=== PATIENT | male | born 1950 | race Caucasian/White ===

== ENCOUNTER 2016-12-24 08:00 | Outpatient (CLI) | payer MEDICARE, OTHER ==
[2016-12-24 12:55] LABS: HEMOGLOBIN A1C 0.45 g/dL
== END 2016-12-24 08:01 | disposition home or self-care (01) ==
LOC: LAB.WCP 08:00
PROVIDERS: ATTEND Family Medicine
DX: E11.9 Type 2 diabetes mellitus without complications (principal)
CPT/HCPCS: 36415; 83036

== ENCOUNTER 2018-01-02 08:00 | Outpatient (CLI) | payer MEDICARE, OTHER | END 2018-01-02 08:01 | disposition home or self-care (01) | LOC: LAB.WCP 08:00 | PROVIDERS: ATTEND Family Medicine | DX: F52.21 Male erectile disorder (principal) | CPT/HCPCS: 36415; 81599; 84402; 84403 ==

== ENCOUNTER 2018-01-14 06:07 | Emergency (ER) | payer MEDICARE, OTHER ==
[2018-01-14 06:16] VITALS: BP 134/59
[2018-01-14] MEDS ORDERED: LIDOCAINE-EPINEPH-TETRACAINE 3 ML SYRINGE TOP STA (07:31)
--- NOTE | 2018-01-14 07:59 | ED Physician Documentation ---
PD HPI WOUND RECHECK - Stated complaint Stated Complaint: R EAR LAC - Chief complaint Chief Complaint: General - Histroy obtained from History obtained from: Patient - History of Present Illness Location: Ear Timing - onset: How many days ago (3) Associated symptoms: Other (bleeding) Similar symptoms before: Has not had sx before Recently seen: Surgery - Additional information Additional information: 67 year old male with a history of CLL who is in remission and who is on Coumadin for blood clots had a procedure on his right ear for removal of a cancer. He is intending to allow this to heal by secondary intention and he has had bleeding persistently since the evening of the procedure. He has soaked gauze about every 4 hours and bleeding has not stopped. He has come in this morning for evaluation and treatment. He has not been ill recently. Review of Systems Constitutional: denies: Fever Eyes: denies: Decreased vision Ears: denies: Ear pain Nose: denies: Rhinorrhea / runny nose, Congestion Throat: denies: Sore throat Respiratory: denies: Cough GI: denies: Vomiting, Hematemesis, Bloody / black stool PD PAST MEDICAL HISTORY - Past Medical History Past Medical History: Yes Cardiovascular: Hypertension, High cholesterol, Deep vein thrombosis, Pulmonary embolism Respiratory: None Neuro: None Endocrine/Autoimmune: Type 2 diabetes : None HEENT: None Psych: None Musculoskeletal: Other Derm: None - Past Surgical History Past Surgical History: Yes Ortho: Rotator cuff repair - Present Medications Home Medications: Ambulatory Orders Medication Instructions Recorded Confirmed Allopurinol 300 mg PO DAILY 06/29/13 01/06/18 Aspirin [Aspir 81] 81 mg PO DAILY 06/29/13 01/06/18 Carvedilol 6.25 mg PO BID 06/29/13 01/06/18 Felodipine [Felodipine ER] 10 mg PO DAILY 06/29/13 01/06/18 Fenofibrate [Lofibra] 160 mg PO DAILY 06/29/13 01/06/18 Furosemide 20 mg PO DAILY 06/29/13 01/06/18 Gluc Coughlin/Chondro Coughlin A/Vit C/Mn 1 each PO DAILY 06/29/13 01/06/18 [Glucosamine 1,500 Complex Cp] Metformin HCl [Fortamet] 500 mg PO BID 06/29/13 01/06/18 Potassium Bicarbonate/Cit AC 60 meq PO TID 06/29/13 01/06/18 [Effer-K 20 Meq Tablet Eff] Simvastatin 20 mg PO DAILY 06/29/13 01/06/18 Telmisartan/Hydrochlorothiazid 1 tab PO DAILY 06/29/13 01/06/18 [Micardis Hct 80-25 mg Tablet] Warfarin [Coumadin] 5 mg PO Q2D 06/29/13 01/06/18 Warfarin Sodium [Coumadin] 7.5 mg PO Q2D 07/06/13 01/06/18 Spironolactone 25 mg PO DAILY 03/05/16 01/06/18 Ibrutinib [Imbruvica] 140 mg PO TID 10/15/16 01/06/18 Cyanocobalamin (Vitamin B-12) 1,000 mcg PO DAILY 10/29/16 01/06/18 [Vitamin B-12] Doxazosin [Cardura] 8 mg PO DAILY 01/06/18 01/06/18 - Allergies Allergies/Adverse Reactions: Allergies Allergy/AdvReac Type Severity Reaction Status Date / Time No Known Drug Allergies Allergy Verified 01/14/18 06:16 - Social History Does the pt smoke?: No Smoking Status: Never smoker Does the pt drink ETOH?: No Does the pt have substance abuse?: No - Immunizations Immunizations are current?: Yes - POLST Patient has POLST: No POLST Status: Full Code PD ED PE NORMAL - Vitals Vital signs reviewed: Yes (hypertnesive mild ) - General General: Alert and oriented X 3, No acute distress, Well developed/nourished - HEENT HEENT: PERRL, EOMI, Other (on the right ear in the center of the conch is a 1cm round surgical site oozing blood slowly ) - Neck Neck: Supple, no meningeal sign, No bony TTP - Respiratory Respiratory: No respiratory distress - Derm Derm: Normal color, Warm and dry, No rash - Extremities Extremities: No deformity, No edema - Neuro Neuro: Alert and oriented X 3, storeroom attendant 2-12 intact, No motor deficit, No sensory deficit, Normal speech Eye Opening: Spontaneous Motor: Obeys Commands Verbal: Oriented GCS Score: 15 - Psych Psych: Normal mood, Normal affect Results - Vitals Vitals: Vital Signs - 24 hr 01/14/18 06:14 Temperature 36.8 C Heart Rate 52 L Respiratory 16 Rate Blood Pressure 134/59 H O2 Saturation 99 Oxygen O2 Source Room air - Labs Labs: Laboratory Tests 01/14/18 07:24 Whole Blood INR 2.9 H PD MEDICAL DECISION MAKING - ED course Complexity details: reviewed results, re-evaluated patient, considered differential, d/w patient ED course: 67-year-old male on Coumadin has an INR of 2.9. He has oozing from a surgical site. This is covered with Gelfoam and this does not produce adequate hemostasis. Subsequently LET is administered to the wound and the base of the surgical site is cauterized with silver nitrate. Gelfoam was placed over this. - Sepsis Event Vital Signs: Vital Signs - 24 hr 01/14/18 06:14 Temperature 36.8 C Heart Rate 52 L Respiratory 16 Rate Blood Pressure 134/59 H O2 Saturation 99 Oxygen O2 Source Room air Departure - Departure Disposition: 01 Home, Self Care Clinical Impression: Postoperative hemorrhage of ear following procedure on ear Condition: Stable Instructions: ED Wound Check Post Op Bleeding Follow-Up: Nicholas Ortiz MD [Primary Care Provider] - Comments: Today your INR is 2.9. Do not take your Coumadin tonight or tomorrow night and then resume your usual dose.
== END 2018-01-14 08:20 | disposition home or self-care (01) ==
LOC: ED 06:07
DX: L76.22 Postprocedural hemorrhage of skin and subcutaneous tissue following other procedure (principal); C91.11 Chronic lymphocytic leukemia of B-cell type in remission; I10 Essential (primary) hypertension; E78.00 Pure hypercholesterolemia, unspecified; E11.9 Type 2 diabetes mellitus without complications; Z86.718 Personal history of other venous thrombosis and embolism; Z86.711 Personal history of pulmonary embolism; Z79.84 Long term (current) use of oral hypoglycemic drugs; Z79.01 Long term (current) use of anticoagulants; Z79.82 Long term (current) use of aspirin
CPT/HCPCS: 12011; 85610; 99282

== ENCOUNTER 2018-02-17 14:13 | Outpatient (CLI) | payer MEDICARE, OTHER | END 2018-02-17 14:14 | disposition home or self-care (01) | LOC: SC 14:13 | PROVIDERS: ATTEND Nurse Practitioner Family | DX: G47.33 Obstructive sleep apnea (adult) (pediatric) (principal) | CPT/HCPCS: 99212; 99214 ==

== ENCOUNTER 2018-02-24 18:14 | Emergency (ER) | payer MEDICARE, OTHER ==
--- NOTE | 2018-02-24 20:05 | ED Physician Documentation ---
History of Present Illness - Stated complaint Stated Complaint: L LEG PX - Chief complaint Chief Complaint: General - History obtained from History obtained from: Patient - History of Present Illness Timing: Today Pain level max: 4 Pain level now: 3 Improved by: Rest Worsened by: Movement - Additonal information Additional information: L thigh pain since 399 today. Worse with standing and better with lying down. States history of DVT and PE in the past. Is normally on warfarin, but stopped 3 days ago for upcoming colonoscopy and has been on BID lovenox. Denies chest pain and SOB. Doesn't recall an injury. Was doing yardwork for his rabbits yesterday. Has chronic osteoarthritis pain in the B knees. Has been having injections of synvisc for his knees. Has CLL as well currently undergoing chemotherapy. Review of Systems Constitutional: denies: Fever, Chills Ears: denies: Ear pain Nose: denies: Congestion Throat: denies: Sore throat Cardiac: denies: Chest pain / pressure, Palpitations Respiratory: denies: Dyspnea, Cough, Hemoptysis, Wheezing Skin: denies: Rash Musculoskeletal: denies: Neck pain, Back pain Neurologic: denies: Headache PD PAST MEDICAL HISTORY - Past Medical History Past Medical History: Yes Cardiovascular: Hypertension, High cholesterol, Deep vein thrombosis, Pulmonary embolism Respiratory: None Neuro: None Endocrine/Autoimmune: Type 2 diabetes : None HEENT: None Psych: None Musculoskeletal: Other Derm: None - Past Surgical History Past Surgical History: Yes Ortho: Rotator cuff repair - Present Medications Home Medications: Ambulatory Orders Medication Instructions Recorded Confirmed Allopurinol 300 mg PO DAILY 06/29/13 01/06/18 Aspirin [Aspir 81] 81 mg PO DAILY 06/29/13 01/06/18 Carvedilol 6.25 mg PO BID 06/29/13 01/06/18 Felodipine [Felodipine ER] 10 mg PO DAILY 06/29/13 01/06/18 Fenofibrate [Lofibra] 160 mg PO DAILY 06/29/13 01/06/18 Furosemide 20 mg PO DAILY 06/29/13 01/06/18 Gluc Coughlin/Chondro Coughlin A/Vit C/Mn 1 each PO DAILY 06/29/13 01/06/18 [Glucosamine 1,500 Complex Cp] Metformin HCl [Fortamet] 500 mg PO BID 06/29/13 01/06/18 Potassium Bicarbonate/Cit AC 60 meq PO TID 06/29/13 01/06/18 [Effer-K 20 Meq Tablet Eff] Simvastatin 20 mg PO DAILY 06/29/13 01/06/18 Telmisartan/Hydrochlorothiazid 1 tab PO DAILY 06/29/13 01/06/18 [Micardis Hct 80-25 mg Tablet] Warfarin [Coumadin] 5 mg PO Q2D 06/29/13 01/06/18 Warfarin Sodium [Coumadin] 7.5 mg PO Q2D 07/06/13 01/06/18 Spironolactone 25 mg PO DAILY 03/05/16 01/06/18 Ibrutinib [Imbruvica] 140 mg PO TID 10/15/16 01/06/18 Cyanocobalamin (Vitamin B-12) 1,000 mcg PO DAILY 10/29/16 01/06/18 [Vitamin B-12] - Allergies Allergies/Adverse Reactions: Allergies Allergy/AdvReac Type Severity Reaction Status Date / Time No Known Drug Allergies Allergy Verified 02/24/18 18:24 - Social History Does the pt smoke?: No Smoking Status: Never smoker Does the pt drink ETOH?: No Does the pt have substance abuse?: No - Immunizations Immunizations are current?: Yes - POLST Patient has POLST: No POLST Status: Full Code PD ED PE NORMAL - Vitals Vital signs reviewed: Yes - General General: Alert and oriented X 3, No acute distress - HEENT HEENT: Moist mucous membranes - Neck Neck: Supple, no meningeal sign - Cardiac Cardiac: RRR - Respiratory Respiratory: No respiratory distress, Clear bilaterally - Abdomen Abdomen: Soft, Non tender, Non distended - Derm Derm: Warm and dry - Extremities Extremities: Other (L thigh - distal, posterior aspect of the thigh with tenderness to palpation. NVI. no palpable cord. ) - Neuro Neuro: Alert and oriented X 3 - Psych Psych: Normal mood, Normal affect Results - Vitals Vitals: Oxygen O2 Source Room air - Rads (name of study) duplex US L LE Radiology: Prelim report reviewed, EMP read contemporaneously, See rad report ( No evidence for DVT. Fluid collection in the deep posterior thigh compatible with hematoma) PD MEDICAL DECISION MAKING - ED course Complexity details: reviewed results, re-evaluated patient, considered differential, d/w patient, d/w family ED course: Patient is a 67-year-old male who presents to the emergency department with swelling and pain to the posterior left thigh. Found to have a hematoma on ultrasound. No evidence of abscess. No overlying skin changes. He needs to continue his Lovenox, therefore compression was applied with an Shine bandage will have him ice this at home. We will have him follow-up with his doctor for further care and repeat evaluation. He will return if he worsens. Compartments are soft. Patient counseled regarding signs and symptoms for which I believe and urgent re-evaluation would be necessary. Patient with good understanding of and agreement to plan and is comfortable going home at this time This document was made in part using voice recognition software. While efforts are made to proofread this document, sound alike and grammatical errors may occur. - Sepsis Event Vital Signs: Oxygen O2 Source Room air Departure - Departure Disposition: 01 Home, Self Care Clinical Impression: Hematoma Condition: Good Instructions: ED Hematoma Follow-Up: Nicholas Ortiz MD [Primary Care Provider] - Within 3 Days Comments: Return if you worsen. Keep compression on the area as this will help stop the bleeding while you are on Lovenox. You can also apply ice to the area. Discharge Date/Time: 02/24/18 21:58
--- NOTE | 2018-02-24 21:38 | Ultrasound Report ---
Procedure Date: 02/24/2018 Accession Number: [id number] / [id number] Procedure: US - Duplex Ext Veins Left CPT Code: FULL RESULT: EXAM: LEFT LOWER EXTREMITY VENOUS ULTRASOUND EXAM DATE: 02/24/2018 09:00 PM. CLINICAL HISTORY: LLE swelling, pain. COMPARISON: None. TECHNIQUE: Real-time sonographic vascular imaging was performed by the instrument lens inspector through the lower extremity utilizing both color-flow and Doppler spectral analysis. Multiple renewals representative static images were saved for review. FINDINGS: Common Femoral Vein (CFV): Normal. CFV-GSV Junction: Normal. Profunda Femoral Vein (PFV): Normal. Femoral Vein (FV) Prox: Normal. Femoral Vein (FV) Mid: Normal. Femoral Vein (FV) Dist: Normal. Popliteal Vein: Not well seen. Posterior Tibial Veins: Not well seen. Peroneal Veins: Normal. Contralateral Side CFV: Normal. Other: Fluid collection in the posterior thigh deep to the subcutaneous fat 6.3 x 2.3 x 3.5 cm. IMPRESSION: 1. No evidence for deep venous thrombosis. 2. Fluid collection in the deep posterior thigh compatible with hematoma. RADIA
[2018-02-24 21:53] VITALS: BP 138/85
== END 2018-02-24 21:58 | disposition home or self-care (01) ==
LOC: ED 18:14
DX: S70.12XA Contusion of left thigh, initial encounter (principal); X58.XXXA Exposure to other specified factors, initial encounter; C91.10 Chronic lymphocytic leukemia of B-cell type not having achieved remission; I10 Essential (primary) hypertension; E78.00 Pure hypercholesterolemia, unspecified; E11.9 Type 2 diabetes mellitus without complications; Z86.718 Personal history of other venous thrombosis and embolism; Z86.711 Personal history of pulmonary embolism; Z79.01 Long term (current) use of anticoagulants; Z79.82 Long term (current) use of aspirin; Z92.21 Personal history of antineoplastic chemotherapy
CPT/HCPCS: 99283

== ENCOUNTER 2018-03-06 09:34 | Outpatient (CLI) | payer MEDICARE, OTHER ==
[2018-03-06 12:28] LABS: BASOPHILS % (AUTO) 1.4 %; EOSINOPHILS % (AUTO) 2.9 %; HGB - HEMOGLOBIN 9.3 g/dL (14.0-18.0); LYMPHOCYTES % (AUTO) 11.3 %; MEAN CORPUSCULAR HEMOGLOBIN 31.9 pg (27.0-31.0); MEAN CORPUSCULAR HGB CONC 34.1 g/dL (32.0-36.0); MEAN CORPUSCULAR VOLUME 93.6 fL (80.0-94.0); MEAN PLATELET VOLUME 9.5 fL (7.4-11.4); MONOCYTES % (AUTO) 9.4 %; PLT - PLATELET COUNT 247 10^3/uL (130-450); RED BLOOD COUNT 2.92 10^6/uL (4.70-6.10); RED CELL DISTRIBUTION WIDTH 14.7 % (12.0-15.0); WHITE BLOOD COUNT 5.3 x10^3/uL (4.8-10.8)
[2018-03-06 12:52] LABS: THYROID STIMULATING HORMONE 2.3 uIU/mL (0.34-5.60)
[2018-03-06 12:58] LABS: FERRITIN 166.5 ng/mL (23.9-336.2)
[2018-03-06 13:03] LABS: FOLATE 8.52 ng/mL (5.90 - >24.8)
[2018-03-06 14:14] LABS: ABNORMAL LYMPHS % (MANUAL) 0 %
[2018-03-06 14:18] LABS: BAND NEUTROPHILS % (MANUAL) 2 %; BASOPHILS # (MANUAL) 0.2 10^3/uL (0-0.1); BASOPHILS % (MANUAL) 3 %; LYMPHOCYTES # (MANUAL) 0.5 10^3/uL (1.5-3.5); LYMPHOCYTES % (MANUAL) 10 %; METAMYELOCYTES % (MANUAL) 5 %; MONOCYTES # (MANUAL) 0.3 10^3/uL (0.0-1.0); MYELOCYTES % (MANUAL) 2 %; NEUTROPHILS # (MANUAL) 3.9 10^3/uL (1.5-6.6); NEUTROPHILS % (MANUAL) 72 %; PLATELET ESTIMATE, MANUAL NORMAL (130-450,000) (NORMAL); PLATELET MORPHOLOGY NORMAL APPEARANCE (NORMAL)
[2018-03-06 14:19] LABS: DIFFERENTIAL COMMENT MANUAL DIFFERENTIAL
[2018-03-06 15:12] LABS: % IRON SATURATION 16 % (20-50); ALBUMIN 3.4 g/dL (3.2-5.5); ALKALINE PHOSPHATASE 28 IU/L (42-121); ALT ALANINE AMINOTRANSFERASE 14 IU/L (10-60); AST ASPARTATE AMINOTRANSFERASE 15 IU/L (10-42); BILIRUBIN,TOTAL 1.4 mg/dL (0.2-1.0); BUN - BLOOD UREA NITROGEN 24 mg/dL (6-20); CALCIUM 8.8 mg/dL (8.5-10.3); CARBON DIOXIDE - CO2 23 mmol/L (21-32); CHLORIDE 105 mmol/L (101-111); CREATININE 1.1 mg/dL (0.6-1.2); GFR - MDRD 67 (>89); GLUCOSE 146 mg/dL (70-100); IRON 49 ug/dL (45-182); SODIUM 135 mmol/L (135-145); TOTAL IRON BINDING CAPACITY 308 ug/dL (250-450); TOTAL PROTEIN 6.8 g/dL (6.7-8.2); TRANSFERRIN 220 mg/dL (180-329)
== END 2018-03-06 09:35 | disposition home or self-care (01) ==
LOC: LAB.WCP 09:34
PROVIDERS: ATTEND Family Medicine
DX: R53.83 Other fatigue (principal); C44.42 Squamous cell carcinoma of skin of scalp and neck; R06.09 Other forms of dyspnea
CPT/HCPCS: 36415; 80053; 82607; 82728; 82746; 83540; 83880; 84443; 84466; 85025

== ENCOUNTER 2018-10-09 08:00 | Outpatient (CLI) | payer MEDICARE, OTHER | END 2018-10-09 23:59 | disposition home or self-care (01) | LOC: LAB.WCP 08:00 | PROVIDERS: ATTEND Nurse Practitioner | DX: I26.99 Other pulmonary embolism without acute cor pulmonale (principal); Z79.01 Long term (current) use of anticoagulants ==

== ENCOUNTER 2018-10-23 08:00 | Outpatient (CLI) | payer MEDICARE, OTHER | END 2018-10-23 23:59 | disposition home or self-care (01) | LOC: LAB.WCP 08:00 | PROVIDERS: ATTEND Family Medicine | DX: I26.99 Other pulmonary embolism without acute cor pulmonale (principal); Z79.01 Long term (current) use of anticoagulants ==

== ENCOUNTER 2018-12-19 12:39 | Emergency (ER) | payer MEDICARE, OTHER ==
[2018-12-19 13:09] VITALS: BP 124/76
--- NOTE | 2018-12-19 14:12 | ED Physician Documentation ---
PD HPI LOWER EXT INJURY - Stated complaint Stated Complaint: LEFT LEG PX/SWELLING - Chief complaint Chief Complaint: Ext Problem - History obtained from History obtained from: Patient - History of Present Illness PD HPI LOW EXT INJURY LOCATION: Left (68-year-old gentleman with history of remote DVT and PE on warfarin. His INR a little over a week ago was 3.5 and his dose was dropped. He took a long plane flight a couple of weeks ago in a long car ride more recently. Since yesterday he is had left hamstring pain without chest pain or difficulty breathing.) Review of Systems Ten Systems: 10 systems reviewed and negative Constitutional: denies: Fever, Chills Cardiac: denies: Chest pain / pressure, Palpitations Respiratory: denies: Dyspnea, Cough PD PAST MEDICAL HISTORY - Past Medical History Cardiovascular: Hypertension, High cholesterol, Deep vein thrombosis, Pulmonary embolism Respiratory: None Neuro: None Endocrine/Autoimmune: Type 2 diabetes : None HEENT: None Psych: None Musculoskeletal: Other Derm: None - Past Surgical History Past Surgical History: Yes Ortho: Rotator cuff repair - Present Medications Home Medications: Ambulatory Orders Medication Instructions Recorded Confirmed Felodipine [Felodipine ER] 10 mg PO DAILY 06/29/13 09/29/18 Fenofibrate [Lofibra] 160 mg PO DAILY 06/29/13 09/29/18 Gluc Coughlin/Chondro Coughlin A/Vit C/Mn 1 each PO DAILY 06/29/13 09/29/18 [Glucosamine 1,500 Complex Cp] Metformin HCl [Fortamet] 500 mg PO BID 06/29/13 09/29/18 Potassium Bicarbonate/Cit AC 60 meq PO TID 06/29/13 09/29/18 [Effer-K 20 Meq Tablet Eff] RX: Allopurinol 300 mg PO DAILY 06/29/13 09/29/18 RX: Carvedilol 6.25 mg PO BID 06/29/13 09/29/18 RX: Furosemide 20 mg PO DAILY 06/29/13 09/29/18 RX: Simvastatin 20 mg PO DAILY 06/29/13 09/29/18 RX: Telmisartan/Hydrochlorothiazid 1 tab PO DAILY 06/29/13 09/29/18 [Micardis Hct 80-25 mg Tablet] Warfarin [Coumadin] 5 mg PO Q2D 06/29/13 09/29/18 Warfarin Sodium [Coumadin] 7.5 mg PO Q2D 07/06/13 09/29/18 RX: Spironolactone 25 mg PO DAILY 03/05/16 09/29/18 Ibrutinib [Imbruvica] 140 mg PO TID 10/15/16 09/29/18 Terbinafine [LamISIL] 250 mg PO DAILY 06/30/18 09/29/18 - Allergies Allergies/Adverse Reactions: Allergies Allergy/AdvReac Type Severity Reaction Status Date / Time No Known Drug Allergies Allergy Verified 02/24/18 18:24 - Social History Does the pt smoke?: No Smoking Status: Never smoker Does the pt drink ETOH?: No Does the pt have substance abuse?: No - Immunizations Immunizations are current?: Yes - POLST Patient has POLST: No POLST Status: Full Code PD ED PE NORMAL - Vitals Vital signs reviewed: Yes - General General: Alert and oriented X 3, No acute distress - Extremities Extremities: Other (Is really more tender over the hamstring than the medial thigh or the anterior thigh. There is no calf tenderness or asymmetry.) - Neuro Neuro: Alert and oriented X 3, Normal speech Results - Vitals Vitals: Vital Signs - 24 hr 12/19/18 13:06 Temperature 36.8 C Heart Rate 62 Respiratory 18 Rate Blood Pressure 124/76 O2 Saturation 96 Oxygen O2 Source Room air - Labs Labs: Laboratory Tests 12/19/18 12/19/18 12/19/18 14:20 14:20 14:20 WBC 6.3 RBC 4.21 L Hgb 13.5 L Hct 40.1 L MCV 95.2 H MCH 32.1 H MCHC 33.7 RDW 14.5 Plt Count 155 MPV 10.0 Neut # (Auto) Not Reportable Lymph # (Auto) Not Reportable [place] # (Auto) Not Reportable Eos # (Auto) Not Reportable Baso # (Auto) Not Reportable Absolute Nucleated RBC Not Reportable Total Counted 100 Band Neuts % (Manual) 2 Reactive Lymphs % (Man) 1 Abnorm Lymph % (Manual) 0 Metamyelocytes % 2 H Myelocytes % 1 H Nucleated RBC % Not Reportable Neutrophils # (Manual) 3.8 Lymphocytes # (Manual) 1.3 L Monocytes # (Manual) 0.5 Eosinophils # (Manual) 0.4 Basophils # (Manual) 0.1 Differential Comment MANUAL DIFFERENTIAL PT 65.5 H INR 6.0 H* Sodium 138 Potassium 5.5 H Chloride 109 Carbon Dioxide 20 L Anion Gap 9.0 BUN 30 H Creatinine 1.0 Estimated GFR (MDRD) 74 L Glucose 165 H Calcium 9.6 - Rads (name of study) LLE DVt sono Radiology: EMP read contemporaneously (leg hematoma, no DVT) PD MEDICAL DECISION MAKING - ED course ED course: 60-year-old gentleman with left hamstring pain, his INR is supratherapeutic and this was discussed and the pain is likely due to the hematoma that was probably spontaneous or minimally traumatic found on ultrasound looking for DVT which was otherwise negative. Departure - Departure Disposition: 01 Home, Self Care Clinical Impression: Left leg pain, Supratherapeutic international normalized ratio (INR), Leg hematoma Condition: Good Comments: Your potassium was a little high today at 5.5. You should hold your Spironolactone pending follow-up with your physician and repeat labs. Your INR is also high at 6.0. Hold your warfarin, have your INR checked again on Saturday. Discharge Date/Time: 12/19/18 15:58
[2018-12-19 14:32] LABS: BASOPHILS % (AUTO) 0.5 %; EOSINOPHILS % (AUTO) 5.9 %; HGB - HEMOGLOBIN 13.5 g/dL (14.0-18.0); LYMPHOCYTES % (AUTO) 13.4 %; MEAN CORPUSCULAR HEMOGLOBIN 32.1 pg (27.0-31.0); MEAN CORPUSCULAR HGB CONC 33.7 g/dL (32.0-36.0); MEAN CORPUSCULAR VOLUME 95.2 fL (80.0-94.0); MONOCYTES % (AUTO) 8.3 %; NEUTROPHILS % (AUTO) 71.9 %; PLT - PLATELET COUNT 155 10^3/uL (130-450); RED BLOOD COUNT 4.21 10^6/uL (4.70-6.10); RED CELL DISTRIBUTION WIDTH 14.5 % (12.0-15.0); WHITE BLOOD COUNT 6.3 x10^3/uL (4.8-10.8)
[2018-12-19 14:34] LABS: PT - PROTHROMBIN TIME 65.5 secs (9.9-12.6)
[2018-12-19 14:37] LABS: CALCIUM 9.6 mg/dL (8.5-10.3)
[2018-12-19 14:41] LABS: ABNORMAL LYMPHS % (MANUAL) 0 %
[2018-12-19 14:53] LABS: BAND NEUTROPHILS % (MANUAL) 2 %; BASOPHILS # (MANUAL) 0.1 10^3/uL (0-0.1); BASOPHILS % (MANUAL) 2 %; EOSINOPHILS # (MANUAL) 0.4 10^3/uL (0-0.7); LYMPHOCYTES # (MANUAL) 1.3 10^3/uL (1.5-3.5); LYMPHOCYTES % (MANUAL) 19 %; METAMYELOCYTES % (MANUAL) 2 %; MONOCYTES # (MANUAL) 0.5 10^3/uL (0.0-1.0); MYELOCYTES % (MANUAL) 1 %; NEUTROPHILS # (MANUAL) 3.8 10^3/uL (1.5-6.6); NEUTROPHILS % (MANUAL) 58 %
[2018-12-19 14:54] LABS: DIFFERENTIAL COMMENT MANUAL DIFFERENTIAL
--- NOTE | 2018-12-19 15:41 | Ultrasound Report ---
Reason: pain swelling history of DVT Procedure Date: 12/19/2018 Accession Number: [id number] / [id number] Procedure: US - Duplex Ext Veins Left CPT Code: FULL RESULT: EXAM: LEFT LOWER EXTREMITY VENOUS ULTRASOUND EXAM DATE: 12/19/2018 03:23 PM. CLINICAL HISTORY: Pain swelling left posterior thigh after long car ride, history of DVT. COMPARISON: DUPLEX EXT VEINS LEFT 02/24/2018 8:33 PM. TECHNIQUE: Real-time sonographic vascular imaging was performed by the crime prevention police officer through the lower extremity utilizing both color-flow and Doppler spectral analysis. Multiple transportation services representative static images were saved for review. FINDINGS: Common Femoral Vein (CFV): Normal. CFV-GSV Junction: Normal. Profunda Femoral Vein (PFV): Normal. Femoral Vein (FV) Prox: Normal. Femoral Vein (FV) Mid: Normal. Femoral Vein (FV) Dist: Normal. Popliteal Vein: Normal. Posterior Tibial Veins: Normal. Peroneal Veins: Normal. Contralateral Side CFV: Normal. Other: Large complex intramuscular fluid collection throughout the length of the left posterior thigh measuring approximately 23 x 2.5 x 5.7 cm. IMPRESSION: 1. No evidence for deep venous thrombosis. 2. Large approximately 23 x 2.5 x 5.7 cm complex intramuscular fluid collection/hematoma in the posterior left thigh. RADIA
== END 2018-12-19 15:58 | disposition home or self-care (01) ==
LOC: ED 12:39
DX: M79.652 Pain in left thigh (principal); R79.1 Abnormal coagulation profile; S70.12XA Contusion of left thigh, initial encounter; X58.XXXA Exposure to other specified factors, initial encounter; Z86.718 Personal history of other venous thrombosis and embolism; Z86.711 Personal history of pulmonary embolism; Z79.01 Long term (current) use of anticoagulants; I10 Essential (primary) hypertension; E11.9 Type 2 diabetes mellitus without complications; Z79.84 Long term (current) use of oral hypoglycemic drugs
CPT/HCPCS: 80048; 85025; 85610; 99283

== ENCOUNTER 2018-12-24 08:00 | Outpatient (CLI) | payer MEDICARE, OTHER ==
[2018-12-24 14:25] LABS: CALCIUM 8.9 mg/dL (8.5-10.3); CREATININE 0.9 mg/dL (0.6-1.2)
== END 2018-12-24 08:01 | disposition home or self-care (01) ==
LOC: LAB.WCP 08:00
PROVIDERS: ATTEND Family Medicine
DX: E87.5 Hyperkalemia (principal)
CPT/HCPCS: 36415; 80048

== ENCOUNTER 2019-01-29 15:31 | Outpatient (CLI) | payer MEDICARE, OTHER ==
[2019-01-31 07:51] LABS: HSV 2 IGG TYPE SPECIFIC AB <0.90 index
== END 2019-01-29 23:59 | disposition home or self-care (01) ==
LOC: LAB.WCP 15:31
PROVIDERS: ATTEND Family Medicine
DX: N48.9 Disorder of penis, unspecified (principal)
CPT/HCPCS: 36415; 81599; 86695; 86696

== ENCOUNTER 2019-08-06 10:32 | Outpatient (CLI) | payer MEDICARE, OTHER ==
--- NOTE | 2019-08-07 08:46 | XRAY Report ---
Reason: TMJ TENDERNESS,RIGHT Procedure Date: 08/06/2019 Accession Number: [id number] / [id number] Procedure: XR - TMJ's-Temporal Mandibular Jts CPT Code: 01100 Final Report FULL RESULT: EXAM: BILATERAL TEMPOROMANDIBULAR JOINT RADIOGRAPHY EXAM DATE: 08/06/2019 11:01 AM. CLINICAL HISTORY: TMJ TENDERNESS, RIGHT. COMPARISON: None. TECHNIQUE: 3 views including open and closed mouth. FINDINGS: Bones: Normal. No fractures or bone lesions. Temporomandibular Joints: Normal. The temporomandibular joints are normally located and symmetric. Sinuses: Normal. No opacities or fluid levels. Other: Normal. No soft tissue swelling. IMPRESSION: Normal temporomandibular joint radiography. RADIA
== END 2019-08-06 10:33 | disposition home or self-care (01) ==
LOC: DI 10:32
PROVIDERS: ATTEND Family Medicine
DX: M26.69 Other specified disorders of temporomandibular joint (principal)
CPT/HCPCS: 70330

== ENCOUNTER 2019-10-26 14:24 | Outpatient (CLI) | payer MEDICARE, OTHER ==
--- NOTE | 2019-10-26 13:20 | SLEEP CARE CONSULTATION ---
Information from patient questionnaire entered by Kimberley Hobbs. I have reviewed and concur with the information entered by Kimberley Hobbs. This document represents the service I personally performed and the decisions made by me, Isa Lamar MD, [facility]. History of Present Illness Service Date and Time: 10/26/2019 1300 Previous diagnosis: Moderate, Obstructive Sleep Apnea-Hypopnea Syndrome AHI: 18.2 Reason for follow up: annual Equipment type: CPAP HPI additional information: To minimize the risk of COVID-19 exposure, the patient has requested and consented to this telephone visit. The patient also agrees to having his insurance billed. HPI: Mr. West was called today to follow up on the nasal CPAP therapy. He was diagnosed to have moderate obstructive sleep apnea-hypopnea syndrome. The patient wears a ResMed Quattro full face mask. He reports using the device nightly and all through the night. The compliance report shows usage in 180 nigh ts out of the past 180 nights, averaging 10.7 hours a night. The > 4 hour compliance rate for the past 180 days is 100%. He complained of no particular problem with the device such as soreness on the face, dry nose, epistaxis, nasal congestion or headache. He thinks that the pressure of 10 cmH2O is comfortable. On the CPAP therapy he notices improvement in his sleep quality, and that he wakes up feeling fresher in the morning and more awake/alert during the day. His notices no snore at all. The average residual AHI is 1.3; and average time in large leak per day is 0. CPAP Compliance Data - Data Reviewed with Patient Average duration of nightly device use: 10h 40m Compliance rate %: 99.4 Current pressure setting (cmH2O): 10 Heated hose settin Average residual AHI: 1.3 Average large leak: 0s Subjective Initial [place] Sleepiness Scale score: 9 Allergies and Home Medications Drug allergies reviewed: Yes Home medication list reviewed: Yes Review of Systems Review of systems same as previous: Yes Physical Exam Height: 6 ft 2 in Impression and Plan IMPRESSION: 1. Obstructive Sleep Apnea-Hypopnea Syndrome, moderate (AHI was 18.2 in [place]), with the patient doing well on nasal CPAP therapy. He has excellent compliance and significant clinical improvement. The current pressure appears effective and comfortable. His mask fits well. Overall, he is very satisfied with treatment and plans to continue with it long-term. Because the CPAP is now older than the useful life of 5 years, I will order the patient a new one and make it an autoCPAP set between 10 and 12 cmH2O. PLAN: 1. Prescription made for an autoCPAP, heated humidifier, and related supplies. 2. Try newer full face masks. List given. 4. Return for follow up after one month on the new machine. Visit Type: Telehealth Phone Location of Provider: Home Patient agrees and consents to this telehealth visit type: Yes Time Spent with Patient (minutes): 10 Provider Statement: I spent 100% of the Telehealth Phone Call with the patient with greater than 50% spent counseling the patient and coordination of care.
== END 2019-10-26 14:25 | disposition home or self-care (01) ==
LOC: SC 14:24
PROVIDERS: ATTEND Internal Medicine Pulmonary Disease
DX: G47.33 Obstructive sleep apnea (adult) (pediatric) (principal)

== ENCOUNTER 2019-12-16 08:00 | Outpatient (CLI) | payer MEDICARE, OTHER | END 2019-12-16 23:59 | disposition home or self-care (01) | LOC: LAB.WCP 08:00 | PROVIDERS: ATTEND Family Medicine | DX: Z20.828 Contact with and (suspected) exposure to other viral communicable diseases (principal); R05 Cough | CPT/HCPCS: 81599 ==

== ENCOUNTER 2019-12-21 03:02 | Outpatient (CLI) | payer MEDICARE, OTHER ==
[2019-12-23 11:57] LABS: HB2 TOTAL 9.9 g/dL; HEMOGLOBIN A1C 0.75 g/dL; HEMOGLOBIN A1C % 9.1 % (4.6-6.2)
[2019-12-23 11:58] LABS: CHOL/HDL RATIO 4.1 (<5.0); CHOLESTEROL 98 mg/dL; HDL CHOLESTEROL 24 mg/dL; LDL CHOLESTEROL,CALCULATED 56 mg/dL; LDL/HDL RATIO 2.3 (<3.6); VLDL CHOLESTEROL 18 mg/dL
== END 2019-12-21 03:03 | disposition home or self-care (01) ==
LOC: LAB 03:02
PROVIDERS: ATTEND Family Medicine
DX: E11.9 Type 2 diabetes mellitus without complications (principal)
CPT/HCPCS: 80061; 83036; 83721

== ENCOUNTER 2020-01-06 06:27 | Outpatient (CLI) | payer MEDICARE, OTHER ==
[2020-01-06] MEDS ORDERED: GADOBUTROL 15 MMOL/15 ML VIAL ONE (07:29)
[2020-01-06] MEDS ORDERED: GADOBUTROL 15 MMOL/15 ML VIAL IVP ONE (09:29)
--- NOTE | 2020-01-06 12:24 | MRI Report ---
PROCEDURE: Abdomen W/WO INDICATIONS: PANCREATIC LESION F U CONTRAST: IV CONTRAST: Gadavist ml: 15 TECHNIQUE: Coronal ultra fast SE, axial 2D spoiled GE in- and [id number]; axial breath-hold T2 fast SE. Dynam ic axial ultra fast GE during the administration of contrast; post-contrast coronal ultra fast GE or 2D spoiled GE with fat saturation from the hepatic dome to the iliac crests. Optional diffusion weig hted imaging and ADC may be performed. COMPARISON: Prior abdomen/pelvis contrast-enhanced CT dated 12/21/2019 reviewed, which had identified several low density structures within the pancreatic uncinate process and pancreatic body. Side branc h intraductal papillary mucinous benign or malignant neoplasm can produce such an appearance. FINDINGS: Image quality: Mildly reduced by patient motion during image acquisition, but diagnostic. Lung bases: No basal pleural effusions. Heart size is normal. Solid organs: Liver and spleen are normal in size and enhancement. Gallbladder appears normal, part ially contracted Biliary system is non dilated. Pancreas is normal in morphology, and the small flu id signal structures at the uncinate process and pancreatic body are unchanged in size and number fro m the recent prior CT scan, measured at 2.1 x 1.3 x 1.5 cm at the pancreatic body and up to 1.4 x 1.0 x 1.1 cm at the uncinate process. No contrast enhancement component of these structures are found. No adrenal nodules. Both kidneys demonstrate normal size and enhancement, without hydronephrosis. Nodes and vessels: No retroperitoneal or mesenteric adenopathy by size criteria. Aorta and inferior vena cava are normal in size. Bowel and peritoneum: Unenhanced bowel loops are normal in caliber. No free fluid. Bones and soft tissues: No ventral hernias. Bone marrow is normal in overall signal. IMPRESSION: Stable appearing fluid-filled sharply demarcated nonenhancing ovoid and rounded structures, small in size, are identical to that present on CT scanning within the pancreatic uncinate process and pancrea tic body on CT scanning 12/21/2019. Follow-up noncontrast MR scanning is recommended in one year. Quality of visualization was somewhat limited by patient motion during image acquisition but the qual ity of visualization is sufficient to follow for stable appearance over time. A common cause of such structures is intraductal papillary mucinous neoplasm (either benign or less commonly malignant) whic h may not change or change only very slowly over time. For this reason follow-up sooner than one year is not recommended for this patient unless clinically indicated otherwise. Reviewed by: Benji Perdomo MD on 01/06/2020 12:23 PM PDT Approved by: Benji Perdomo MD on 01/06/2020 12:23 PM PDT Station ID: [id number]
== END 2020-01-06 06:28 | disposition home or self-care (01) ==
LOC: DI 06:27
PROVIDERS: ATTEND Internal Medicine Hematology & Oncology
DX: K86.9 Disease of pancreas, unspecified (principal); C91.11 Chronic lymphocytic leukemia of B-cell type in remission; G47.33 Obstructive sleep apnea (adult) (pediatric); E66.9 Obesity, unspecified; Z68.33 Body mass index [BMI] 33.0-33.9, adult
CPT/HCPCS: 74183; 99213; G0463; 99212

== ENCOUNTER 2020-01-06 14:36 | Outpatient (CLI) | payer MEDICARE, OTHER ==
--- NOTE | 2020-01-06 15:32 | SLEEP CARE CONSULTATION ---
Information from patient questionnaire entered by Rosanne Colby. I have reviewed and concur with the information entered by Rosanne Colby. This document represents the service I personally performed and the decisions made by me, Jahaira Kohler, RN, MSN, SHELVER. History of Present Illness Service Date and Time: 01/06/2020 1436 Previous diagnosis: Moderate, Obstructive Sleep Apnea-Hypopnea Syndrome AHI: 18.2 (in 2006) Reason for follow up: first compliance after device update Equipment type: CPAP Equipment obtained from: [employer] (getting supplies as needed) Mask style: Full face Mask brand: Resmed Backup mask available: Yes (old mask ) Last cushion change: 6 weeks ago Prior sleep studies: Yes Year and Where: 2006 - [facility] in [place], [place] Type of Sleep Study: Polysomnography CPAP Compliance Data - Data Reviewed with Patient Average duration of nightly device use: 10.25 Compliance rate %: 100 Current pressure setting (cmH2O): 10-12 Humidity settin Average residual AHI: 0.4 Subjective Patient concerns: denies: aerophagia, mask discomfort, air blowing in eyes, mask leak noise, condensation in mask/hose, nasal congestion, dry mouth, nose, throat, epistaxis, other Observed to snore while using device: No Current pressure setting perceived as: comfortable On therapy, patient: reports: sleeping better, awakening more refreshed, being more awake and alert during the day, more rested overall. denies: drowsiness while driving Initial [place] Sleepiness Scale score: 9 (in 2014) Current [place] Sleepiness Scale score: 9 Allergies and Home Medications Known drug allergies: No Home medication list reviewed: No (no CHANGES STATED ) Review of Systems Review of systems same as previous: Yes Physical Exam Blood Pressure: 120/60 Cuff size: long Heart Rate: 60 O2 Saturation: 98 Height: 6 ft 2 in Weight: 259 lb 9.6 oz Body Mass Index: 33.3 BMI Classification: Obese Impression and Plan 1. Obstructive Sleep Apnea-Hypopnea Syndrome, moderate, with good treatment compliance and good apnea control. On CPAP therapy, the patient has better sleep quality and is more rested overall. Patient is very pleased with CPAP benefit. He sleeps 10 hours a day and states has been requiring this amount of sleep for a while. I explained that most people require 7-9 hours of sleep. But it appears he is a long sleeper range. If he requires more sleep, I advised him to follow up with PCP for further evaluation as increased need of sleep can be due to other medical problem. Since he uses a So Clean cleaning device , I informed him of the FDA warning of CPAP cleaning devices of health risks. He is to check the FDA web site. Thus he is instead to use normal cleaning of mask daily / other equipment weekly with soap water and vinegar as needed. Because of his mild obesity of 33, he is also advised to lose weight with rationale discussed. Patient's apnea severity and rationale for treatment to reduce apnea, improve sleep quality and reduce cardiovascular and cerebrovascular events was reviewed. * Continue auto CPAP pressure at 10-12 cmH2O * Stop So Clean / check FDA site * Notify me if snoring with mask or feeling that the pressure is too much or too little * Attempt to lose weight * Call this office if any problems using CPAP * Return for follow up in 1 year , or sooner if concerns arise Visit Type: In Office Time Spent with Patient (minutes): 15 Provider Statement: I spent 100% of the Face to Face Visit with the patient with greater than 50% spent counseling the patient and coordination of care.
[2020-01-06 15:33] VITALS: BP 120/60
== END 2020-01-06 14:37 | disposition home or self-care (01) ==
LOC: SC 14:36
PROVIDERS: ATTEND Nurse Practitioner Family
DX: G47.33 Obstructive sleep apnea (adult) (pediatric) (principal); E66.9 Obesity, unspecified; Z68.33 Body mass index [BMI] 33.0-33.9, adult
CPT/HCPCS: 99212; 99213

== ENCOUNTER 2020-01-22 18:39 | Emergency (ER) | payer MEDICARE, OTHER ==
[2020-01-22] MEDS ORDERED: MORPHINE 2 MG/ML CARPUJECT IVP STA (19:07)
[2020-01-22] MEDS ORDERED: IOVERSOL 320 100 ML VIAL IVP ONE ×2 (19:20→20:50)
[2020-01-22 19:34] LABS: BASOPHILS % (AUTO) 2.1 %; EOSINOPHILS % (AUTO) 3.7 %; HGB - HEMOGLOBIN 9.3 g/dL (14.0-18.0); LYMPHOCYTES % (AUTO) 9.9 %; MEAN CORPUSCULAR HEMOGLOBIN 32.1 pg (27.0-31.0); MEAN CORPUSCULAR HGB CONC 30.1 g/dL (32.0-36.0); MEAN CORPUSCULAR VOLUME 106.6 fL (80.0-94.0); MEAN PLATELET VOLUME 11.3 fL (7.4-11.4); MONOCYTES % (AUTO) 12.6 %; NEUTROPHILS % (AUTO) 45.3 %; PLT - PLATELET COUNT 194 10^3/uL (130-450); RED CELL DISTRIBUTION WIDTH 18.1 % (12.0-15.0)
[2020-01-22 19:38] LABS: ABNORMAL LYMPHS % (MANUAL) 0 %
--- NOTE | 2020-01-22 19:45 | ED Physician Documentation ---
History of Present Illness - Stated complaint Stated Complaint: RT RIB PX - Chief complaint Chief Complaint: Resp - History obtained from History obtained from: Patient, Family - History of Present Illness Pain level max: 10 Pain level now: 10 - Additonal information Additional information: 69-year-old male presents to the emergency department with a fever and cough for the past 2 weeks. He has had a cough for approximately 6 weeks now. Nothing makes it better or worse. The fever started a few days ago. He states that he had a "coughing fit" last night and developed severe right-sided rib pain. Patient has a history of leukemia. He is not currently on chemotherapy. No vomiting. No abdominal pain. Review of Systems Ten Systems: 10 systems reviewed and negative Constitutional: reports: Fever, Chills Nose: denies: Rhinorrhea / runny nose, Congestion Respiratory: reports: Cough (productive) GI: denies: Nausea, Vomiting : denies: Dysuria Skin: denies: Rash Musculoskeletal: denies: Neck pain, Back pain Neurologic: denies: Headache PD PAST MEDICAL HISTORY - Past Medical History Cardiovascular: Hypertension, High cholesterol, Deep vein thrombosis, Pulmonary embolism Respiratory: None Neuro: None Endocrine/Autoimmune: Type 2 diabetes : None HEENT: None Psych: None Musculoskeletal: Other Derm: None - Past Surgical History Past Surgical History: Yes Ortho: Rotator cuff repair - Present Medications Home Medications: Ambulatory Orders Medication Instructions Recorded Confirmed Carvedilol 6.25 mg PO BID 06/29/13 12/28/19 Felodipine [Felodipine ER] 10 mg PO DAILY 06/29/13 12/28/19 Fenofibrate [Lofibra] 160 mg PO DAILY 06/29/13 12/28/19 Furosemide 20 mg PO DAILY 06/29/13 12/28/19 Gluc Coughlin/Chondro Coughlin A/Vit C/Mn 1 each PO DAILY 06/29/13 12/28/19 [Glucosamine 1,500 Complex Cp] Metformin HCl [Fortamet] 500 mg PO BID 06/29/13 12/28/19 Potassium Bicarbonate/Cit AC 60 meq PO TID 06/29/13 12/28/19 [Effer-K 20 Meq Tablet Eff] Simvastatin 20 mg PO DAILY 06/29/13 12/28/19 Telmisartan/Hydrochlorothiazid 1 tab PO DAILY 06/29/13 12/28/19 [Micardis Hct 80-25 mg Tablet] allopurinoL [Allopurinol] 300 mg PO DAILY 06/29/13 12/28/19 Spironolactone 25 mg PO DAILY 03/05/16 12/28/19 Ibrutinib [Imbruvica] 140 mg PO TID 10/15/16 12/28/19 Terbinafine [LamISIL] 250 mg PO DAILY 06/30/18 12/28/19 Apixaban [Eliquis] 10 mg PO BID 12/29/18 12/28/19 Cyanocobalamin (Vitamin B-12) 1,000 mcg PO DAILY 03/30/19 12/28/19 [Vitamin B-12] Doxycycline Hyclate 100 mg PO BID #20 capsule 01/22/20 Hydrocodone/Acetaminophen 1 - 2 each PO Q6H PRN #14 tablet 01/22/20 [Hydrocodon-Acetaminophen 5-325] - Allergies Allergies/Adverse Reactions: Allergies Allergy/AdvReac Type Severity Reaction Status Date / Time No Known Drug Allergies Allergy Verified 12/28/19 10:12 - Social History Does the pt smoke?: No Smoking Status: Never smoker Does the pt drink ETOH?: No Does the pt have substance abuse?: No - Immunizations Immunizations are current?: Yes - POLST Patient has POLST: No POLST Status: Full Code PD ED PE NORMAL - Vitals Vital signs reviewed: Yes - General General: Alert and oriented X 3, No acute distress, Well developed/nourished - HEENT HEENT: PERRL, Moist mucous membranes - Neck Neck: Supple, no meningeal sign - Cardiac Cardiac: RRR, Strong equal pulses - Respiratory Respiratory: No respiratory distress, Other (Rhonchi bilaterally) - Abdomen Abdomen: Soft, Non tender, Non distended - Derm Derm: Warm and dry - Extremities Extremities: No edema - Neuro Neuro: Alert and oriented X 3 - Psych Psych: Normal mood, Normal affect Results - Vitals Vitals: Vital Signs - 24 hr 01/22/20 01/22/20 01/22/20 18:40 19:17 20:43 Temperature 38.2 C H 38.2 C H Heart Rate 87 89 85 Respiratory 30 H 27 H 25 H Rate Blood Pressure 141/63 H 135/63 H 140/61 H O2 Saturation 95 94 97 01/22/20 21:20 Temperature 38.0 C H Heart Rate 87 Respiratory 19 Rate Blood Pressure 122/61 O2 Saturation 98 Oxygen O2 Source Room air - Labs Labs: Laboratory Tests 01/22/20 01/22/20 01/22/20 19:20 19:20 19:20 WBC 10.0 RBC 2.90 L Hgb 9.3 L Hct 30.9 L MCV 106.6 H MCH 32.1 H MCHC 30.1 L RDW 18.1 H Plt Count 194 MPV 11.3 Neut # (Auto) Not Reportable Lymph # (Auto) Not Reportable Ciales # (Auto) Not Reportable Eos # (Auto) Not Reportable Baso # (Auto) Not Reportable Absolute Nucleated RBC Not Reportable Total Counted 100 Band Neuts % (Manual) 3 Abnorm Lymph % (Manual) 0 Metamyelocytes % 2 H Nucleated RBC % Not Reportable Neutrophils # (Manual) 6.3 Lymphocytes # (Manual) 2.0 Monocytes # (Manual) 1.2 H Eosinophils # (Manual) 0.3 Basophils # (Manual) 0.0 Nucleated RBCs 1 Differential Comment MANUAL DIFFERENTIAL Platelet Estimate NORMAL (130-450,000) Platelet Morphology NORMAL APPEARANCE RBC Morph Micro Appear 2+ POIKILOCYTOSIS Sodium 137 Potassium 4.0 Chloride 103 Carbon Dioxide 23 Anion Gap 11.0 BUN 24 H Creatinine 1.3 H Estimated GFR (MDRD) 55 L Glucose 126 H Lactic Acid 0.8 Calcium 9.0 Total Bilirubin 1.3 H AST 32 ALT 32 Alkaline Phosphatase 26 L Total Protein 7.1 Albumin 4.0 Globulin 3.1 Albumin/Globulin Ratio 1.3 Lipase 33 - Rads (name of study) CT chest Radiology: Prelim report reviewed, EMP read contemporaneously, See rad report (1. Focal consolidative airspace opacities within the right middle lobe as above. Differential considerations include infection and aspiration. 2. Small low-density right pleural effusion. 3. Cystic pancreatic lesion better characterized on the CT and MRI of the abdomen from January 02, 2020. ) PD MEDICAL DECISION MAKING - ED course Complexity details: reviewed results, re-evaluated patient, considered differential, d/w patient, d/w family ED course: 69-year-old male with right-sided pneumonia. Pain well controlled. Feels better after pain medication. Given Rocephin and doxycycline. Will place on doxycycline for home. He is well-appearing, nontoxic. No evidence of sepsis. Normal lactate. No hypoxia. Patient counseled regarding signs and symptoms for which I believe and urgent re-evaluation would be necessary. Patient with good understanding of and agreement to plan and is comfortable going home at this time This document was made in part using voice recognition software. While efforts are made to proofread this document, sound alike and grammatical errors may occur. Departure - Departure Disposition: 01 Home, Self Care Clinical Impression: Pneumonia Qualifiers: Pneumonia type: due to unspecified organism Laterality: right Lung location: lower lobe of lung Qualified Code(s): J18.9 - Pneumonia, unspecified organism Fever Qualifiers: Fever type: unspecified Qualified Code(s): R50.9 - Fever, unspecified Condition: Good Instructions: ED Pneumonia Adult Follow-Up: Ben Hughes DO [Primary Care Provider] - Within 3 Days Prescriptions: Doxycycline Hyclate 100 mg PO BID #20 capsule Hydrocodone/Acetaminophen [Hydrocodon-Acetaminophen 5-325] 1 - 2 each PO Q6H PRN #14 tablet PRN Reason: pain Comments: Take all antibiotics until gone. Return if you worsen. If you are not improving in the next few days, we may need to change your antibiotic. Do not drink alcohol or drive while on narcotic pain medicine. Note that many narcotic pain relievers also contain tylenol/acetaminophen. Please ensure that your total dose of acetaminophen from all sources does not exceed 3 grams (3000mg) per day. You may constipated on this medication, take a stool softener such as "Colace" twice a day while you are on it. Also recommend a oezb-uqz-seeotmi laxative such as senna or MiraLAX any day that you do not have a bowel movement. If you received narcotic pain medication in the emergency department, do not drive or operate machinery for the next 24 hours.
[2020-01-22 20:03] LABS: ALBUMIN/GLOBULIN RATIO 1.3 (1.0-2.2); BILIRUBIN,TOTAL 1.3 mg/dL (0.2-1.0); CREATININE 1.3 mg/dL (0.6-1.2); TOTAL PROTEIN 7.1 g/dL (6.7-8.2)
[2020-01-22 20:20] LABS: BAND NEUTROPHILS % (MANUAL) 3 %; EOSINOPHILS # (MANUAL) 0.3 10^3/uL (0-0.7); LYMPHOCYTES % (MANUAL) 20 %; METAMYELOCYTES % (MANUAL) 2 %; MONOCYTES # (MANUAL) 1.2 10^3/uL (0.0-1.0)
[2020-01-22 20:21] LABS: DIFFERENTIAL COMMENT MANUAL DIFFERENTIAL; PLATELET ESTIMATE, MANUAL NORMAL (130-450,000) (NORMAL); PLATELET MORPHOLOGY NORMAL APPEARANCE (NORMAL)
[2020-01-22] MEDS ORDERED: cefTRIAXone 1 GM VIAL IVP STA (20:54)
[2020-01-22] MEDS ORDERED: DOXYCYCLINE 100 MG TABLET PO STA (20:54)
--- NOTE | 2020-01-22 21:11 | CT Report ---
PROCEDURE: CHEST W INDICATIONS: fever, cough, R rib pain CONTRAST: IV CONTRAST: Optiray 320 ml: 100 PO CONTRAST: *NO PO CONTRAST TECHNIQUE: After the administration of intravenous contrast, 5 mm thick sections acquired from the pulmonary api edin to the posterior costophrenic angles. 7 mm thick coronal MIP reformats were acquired. For radia tion dose reduction, the following was used: automated exposure control, adjustment of mA and/or kV according to patient size. COMPARISON: None. FINDINGS: Image quality: Excellent. Lungs and pleura: Focal groundglass and consolidative radiopacities are present within the posterior aspect of the right middle lobe. Dependent atelectasis is present within the bilateral lung bases and lingular base. There is a small low density right pleural effusion. No pneumothorax. Mediastinum: Heart size is normal. No pericardial effusion. There are scattered coronary artery rubina cifications. No mediastinal or hilar adenopathy by size criteria. Thoracic aorta and central pulmon girish arteries are normal in size. Scattered atheromatous calcifications are present at the thoracic a ortic arch. Esophagus is normal in caliber. No hiatal hernia. Bones and chest wall: There is a left Port-A-Cath, the tip of which is at the cavoatrial junction. N o suspicious bony lesions. No vertebral body compression fractures. No axillary or supraclavicular adenopathy by size criteria. Thyroid gland . Abdomen: A low density cystic appearing lesion is present within the body of the pancreas which nenita ures 2.4 x 3.0 x 1.6 cm. This is unchanged from the prior CT and MRI from January 02, 2020. Visualized u pper abdominal solid organs appear otherwise normal. IMPRESSION: 1. Focal consolidative airspace opacities within the right middle lobe as above. Differential conside rations include infection and aspiration. 2. Small low-density right pleural effusion. 3. Cystic pancreatic lesion better characterized on the CT and MRI of the abdomen from January 02, 2020. Reviewed by: Sara Glez MD on 01/22/2020 9:10 PM PDT Approved by: Sara Glez MD on 01/22/2020 9:10 PM PDT Station ID: [id number]
[2020-01-22] MEDS ORDERED: HYDROcod/ACET 5/325 Prepack 4 PO STA (21:35)
[2020-01-22 21:46] VITALS: BP 122/61
[2020-01-22] MEDS ORDERED: HYDROcod/ACETAM 5/325 MG TABLET PO STA (21:49)
== END 2020-01-22 21:55 | disposition home or self-care (01) ==
LOC: ED 18:39
DX: J18.9 Pneumonia, unspecified organism (principal); E11.9 Type 2 diabetes mellitus without complications; I10 Essential (primary) hypertension; Z79.84 Long term (current) use of oral hypoglycemic drugs
CPT/HCPCS: 36415; 71260; 80053; 83605; 83690; 85025; 87040; 96374; 96375; 99284; 99285; A9270; Q9967; U0004

== ENCOUNTER 2020-01-28 14:51 | Outpatient (CLI) | payer MEDICARE, OTHER ==
[2020-01-28 19:19] LABS: BASOPHILS % (AUTO) 2.8 %; EOSINOPHILS % (AUTO) 6.7 %; HGB - HEMOGLOBIN 8.3 g/dL (14.0-18.0); LYMPHOCYTES % (AUTO) 9.2 %; MEAN CORPUSCULAR HGB CONC 29.9 g/dL (32.0-36.0); MEAN CORPUSCULAR VOLUME 107.3 fL (80.0-94.0); MEAN PLATELET VOLUME 11.9 fL (7.4-11.4); MONOCYTES % (AUTO) 8.3 %; NEUTROPHILS % (AUTO) 36.5 %; PLT - PLATELET COUNT 242 10^3/uL (130-450); RED BLOOD COUNT 2.59 10^6/uL (4.70-6.10); RED CELL DISTRIBUTION WIDTH 18.3 % (12.0-15.0); WHITE BLOOD COUNT 12.1 x10^3/uL (4.8-10.8)
[2020-01-28 19:23] LABS: ABNORMAL LYMPHS % (MANUAL) 0 %
[2020-01-28 19:31] LABS: ALBUMIN 3.1 g/dL (3.2-5.5); ALBUMIN/GLOBULIN RATIO 0.8 (1.0-2.2); BILIRUBIN,TOTAL 0.9 mg/dL (0.2-1.0); CALCIUM 8.8 mg/dL (8.5-10.3); CREATININE 1.4 mg/dL (0.6-1.2); TOTAL PROTEIN 7.1 g/dL (6.7-8.2)
[2020-01-28 19:40] LABS: BAND NEUTROPHILS % (MANUAL) 25 %; BASOPHILS # (MANUAL) 0.2 10^3/uL (0-0.1); BASOPHILS % (MANUAL) 2 %; EOSINOPHILS # (MANUAL) 0.4 10^3/uL (0-0.7); LYMPHOCYTES # (MANUAL) 1.8 10^3/uL (1.5-3.5); LYMPHOCYTES % (MANUAL) 15 %; MONOCYTES # (MANUAL) 0.8 10^3/uL (0.0-1.0)
[2020-01-28 19:41] LABS: DIFFERENTIAL COMMENT MANUAL DIFFERENTIAL; PLATELET ESTIMATE, MANUAL NORMAL (130-450,000) (NORMAL); PLATELET MORPHOLOGY NORMAL APPEARANCE (NORMAL)
--- NOTE | 2020-01-28 22:41 | XRAY Report ---
Reason: RIGHT PNEUMONIA Procedure Date: 01/28/2020 Accession Number: [id number] / [id number] Procedure: WCP - Chest 2 View X-Ray CPT Code: 78994 Final Report FULL RESULT: PROCEDURE: Chest 2 View X-Ray INDICATIONS: RIGHT PNEUMONIA TECHNIQUE: 2 view(s) of the chest. COMPARISON: Chest CT 01/22/2020 FINDINGS: Surgical changes and devices: Alveolar opacity left IJ Mediport.. Lungs and pleura: No pleural effusions or pneumothorax. Persistent density is present in the right middle lobe, and to a lesser extent in the left lower lobe. Mediastinum: Mediastinal contours are normal. Heart size is normal. Bones and chest wall: No suspicious bony abnormalities. Soft tissues appear unremarkable. IMPRESSION: 1. No significant change in right middle lobe pneumonia compared to most recent prior CT scan.. 2. Atelectasis, scarring, or small infiltrate in the left lower lobe. Reviewed by: Morena Restrepo MD on 01/28/2020 10:39 PM PDT Approved by: Morena Restrepo MD on 01/28/2020 10:39 PM PDT Station ID: [id number]
== END 2020-01-28 14:52 | disposition home or self-care (01) ==
LOC: DI.WCP 14:51
PROVIDERS: ATTEND Family Medicine
DX: J18.9 Pneumonia, unspecified organism (principal); R91.8 Other nonspecific abnormal finding of lung field
CPT/HCPCS: 36415; 71046; 80053; 85025

== ENCOUNTER 2020-04-05 09:46 | Emergency (ER) | payer MEDICARE, OTHER ==
--- NOTE | 2020-04-05 10:17 | ED Physician Documentation ---
PD HPI URI - Stated complaint Stated Complaint: SOA/SORE THROAT - Chief complaint Chief Complaint: Resp - History obtained from History obtained from: Patient - History of Present Illness Timing - onset: How many days ago (2-3) Timing duration: Days (2-3) Timing details: Gradual onset (has had dyspnea and some cough for a month or more. Rx with antibiotics couple weeks ago and improved. With cough more and now feverish/weak today. Seen by Oncology clinic yesterday and had CT-A of chest to eval dyspnea. This was negative except improved/residual infiltrate of pneumonia.) Associated symptoms: Fever (today). No: Sore throat, Dry cough, Productive cough Contributing factors: Immunocompromised. No: Sick contact, Unimmunized Worsened by: Activity Similar symptoms before: Diagnosis (pneumonia few weeks ago) Recently seen: Clinic (yesterday) Review of Systems Constitutional: reports: Fever, Chills Nose: reports: Congestion. denies: Rhinorrhea / runny nose Throat: denies: Sore throat Cardiac: denies: Chest pain / pressure, Palpitations, Pedal edema, Calf pain Respiratory: reports: Dyspnea, Cough. denies: Wheezing GI: denies: Abdominal Pain, Nausea, Vomiting, Constipation, Diarrhea PD PAST MEDICAL HISTORY - Past Medical History Cardiovascular: Hypertension, High cholesterol, Deep vein thrombosis, Pulmonary embolism Respiratory: None Neuro: None Endocrine/Autoimmune: Type 2 diabetes : None HEENT: None Psych: None Musculoskeletal: Other Derm: None - Past Surgical History Past Surgical History: Yes Ortho: Rotator cuff repair - Present Medications Home Medications: Ambulatory Orders Medication Instructions Recorded Confirmed Carvedilol 6.25 mg PO BID 06/29/13 04/04/20 Felodipine [Felodipine ER] 10 mg PO DAILY 06/29/13 04/04/20 Fenofibrate [Lofibra] 160 mg PO DAILY 06/29/13 04/04/20 Furosemide 20 mg PO DAILY 06/29/13 04/04/20 Gluc Coughlin/Chondro Coughlin A/Vit C/Mn 1 each PO DAILY 06/29/13 04/04/20 [Glucosamine 1,500 Complex Cp] Metformin HCl [Fortamet] 500 - 1,000 mg PO BID 06/29/13 04/04/20 Potassium Bicarbonate/Cit AC 60 meq PO TID 06/29/13 04/04/20 [Effer-K 20 Meq Tablet Eff] Simvastatin 20 mg PO DAILY 06/29/13 04/04/20 Telmisartan/Hydrochlorothiazid 1 tab PO DAILY 06/29/13 04/04/20 [Micardis Hct 80-25 mg Tablet] allopurinoL [Allopurinol] 300 mg PO DAILY 06/29/13 04/04/20 Spironolactone 25 mg PO DAILY 03/05/16 04/04/20 Terbinafine [LamISIL] 250 mg PO DAILY 06/30/18 04/04/20 Apixaban [Eliquis] 10 mg PO BID 12/29/18 04/04/20 Cyanocobalamin (Vitamin B-12) 1,000 mcg PO DAILY 03/30/19 04/04/20 [Vitamin B-12] Doxycycline Hyclate 100 mg PO BID #20 capsule 01/22/20 04/04/20 Hydrocodone/Acetaminophen 1 - 2 each PO Q6H PRN #14 tablet 01/22/20 04/04/20 [Hydrocodon-Acetaminophen 5-325] predniSONE [Prednisone] 70 mg PO DAILY 02/22/20 04/04/20 Glipizide 10 mg PO DAILY 02/29/20 04/04/20 Insulin Glargine [Lantus Solostar] 15 unit SQ QPM 02/29/20 04/04/20 Insulin Aspart [NovoLOG] 5 units SQ DAILY 03/07/20 04/04/20 predniSONE [Prednisone] 20 mg PO DAILY 03/07/20 04/04/20 Albuterol Sulfate [Albuterol 2 puffs IH QID #1 hfa.aer.ad 04/05/20 Sulfate Hfa] Benzonatate [Tessalon Perle] 100 mg PO TID PRN #25 capsule 04/05/20 cefUROXime axetiL [Ceftin] 500 mg PO BID #14 tablet 04/05/20 - Allergies Allergies/Adverse Reactions: Allergies Allergy/AdvReac Type Severity Reaction Status Date / Time adhesive tape Allergy Rash Verified 04/05/20 10:00 - Social History Does the pt smoke?: No Smoking Status: Never smoker Does the pt drink ETOH?: No Does the pt have substance abuse?: No - Immunizations Immunizations are current?: Yes - POLST Patient has POLST: No POLST Status: Full Code PD ED PE NORMAL - Vitals Vital signs reviewed: Yes - General General: Alert and oriented X 3, No acute distress, Well developed/nourished - HEENT HEENT: Ears normal, Moist mucous membranes, Pharynx benign - Neck Neck: Supple, no meningeal sign, No adenopathy - Cardiac Cardiac: RRR (mild tachycardia), No murmur - Respiratory Respiratory: Clear bilaterally - Abdomen Abdomen: Soft, Non tender - Back Back: No CVA TTP - Derm Derm: Normal color, Warm and dry - Extremities Extremities: No deformity, No tenderness to palpate, Normal ROM s pain, No edema, No calf tenderness / cord - Neuro Neuro: Alert and oriented X 3, No motor deficit, Normal speech Results - Vitals Vitals: Vital Signs - 24 hr 04/05/20 04/05/20 04/05/20 10:00 11:51 13:52 Temperature 38.7 C H 39.2 C H Heart Rate 108 H 110 H 115 H Respiratory 24 16 30 H Rate Blood Pressure 131/59 H 129/68 O2 Saturation 96 93 Oxygen O2 Source Room air - Labs Labs: Microbiology 04/05/20 12:20 Respiratory Culture - Preliminary Sputum Laboratory Tests 04/05/20 04/05/20 04/05/20 10:50 10:50 10:50 WBC 13.8 H RBC 2.16 L Hgb 7.2 L Hct 23.5 L MCV 108.8 H MCH 33.3 H MCHC 30.6 L RDW 25.2 H Plt Count 159 MPV 11.5 H Neut # (Auto) Not Reportable Lymph # (Auto) Not Reportable [place] # (Auto) Not Reportable Eos # (Auto) Not Reportable Baso # (Auto) Not Reportable Absolute Nucleated RBC Not Reportable Total Counted 100 Band Neuts % (Manual) 2 Reactive Lymphs % (Man) 6 Abnorm Lymph % (Manual) 0 Myelocytes % 8 H Nucleated RBC % Not Reportable Neutrophils # (Manual) 8.6 H Lymphocytes # (Manual) 1.4 L Monocytes # (Manual) 1.9 H Eosinophils # (Manual) 0.8 H Basophils # (Manual) 0.0 Nucleated RBCs 2 Differential Comment MANUAL DIFFERENTIAL Manual Slide Review Indicated Sodium 133 L Potassium 4.0 Chloride 101 Carbon Dioxide 23 Anion Gap 9.0 BUN 28 H Creatinine 1.1 Estimated GFR (MDRD) 66 L Glucose 129 H Lactic Acid Calcium 9.0 Total Bilirubin 0.9 AST 14 ALT 10 Alkaline Phosphatase 28 L Total Protein 6.4 L Albumin 3.2 Globulin 3.2 Albumin/Globulin Ratio 1.0 Urine Color YELLOW Urine Clarity CLEAR Urine pH 6.5 Ur Specific [place] 1.020 Urine Protein NEGATIVE Urine Glucose (UA) NEGATIVE Urine Ketones NEGATIVE Urine Occult Blood NEGATIVE Urine Nitrite NEGATIVE Urine Bilirubin NEGATIVE Urine Urobilinogen 1 (NORMAL) Ur Leukocyte Esterase NEGATIVE Urine RBC 0-5 Urine WBC 0-3 Ur Squamous Epith Cells RARE Squamous Urine Bacteria Rare Urine Culture Comments NOT INDICATED 04/05/20 12:10 WBC RBC Hgb Hct MCV MCH MCHC RDW Plt Count MPV Neut # (Auto) Lymph # (Auto) [place] # (Auto) Eos # (Auto) Baso # (Auto) Absolute Nucleated RBC Total Counted Band Neuts % (Manual) Reactive Lymphs % (Man) Abnorm Lymph % (Manual) Myelocytes % Nucleated RBC % Neutrophils # (Manual) Lymphocytes # (Manual) Monocytes # (Manual) Eosinophils # (Manual) Basophils # (Manual) Nucleated RBCs Differential Comment Manual Slide Review Sodium Potassium Chloride Carbon Dioxide Anion Gap BUN Creatinine Estimated GFR (MDRD) Glucose Lactic Acid 0.8 Calcium Total Bilirubin AST ALT Alkaline Phosphatase Total Protein Albumin Globulin Albumin/Globulin Ratio Urine Color Urine Clarity Urine pH Ur Specific [place] Urine Protein Urine Glucose (UA) Urine Ketones Urine Occult Blood Urine Nitrite Urine Bilirubin Urine Urobilinogen Ur Leukocyte Esterase Urine RBC Urine WBC Ur Squamous Epith Cells Urine Bacteria Urine Culture Comments - Rads (name of study) chest xray Radiology: Prelim report reviewed, See rad report PD MEDICAL DECISION MAKING - ED course Complexity details: reviewed old records (CT chest from yestesrday with recent pneumonic infiltrate improved. No new findings. ), reviewed results (CXR with prior pneumonia still present. ), considered differential (Initially met sepsis screening criteria, but then did not appear that sick. 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 Dumont was not available at this moment) who said they did not feel he needed to be in the hospital. However we would treat with an inhaler and antibiotics and something for the throat. It is okay for you to get your injection this afternoon as planned. Recheck if not improved well over the next couple of days. We will treat this as possible redeveloping pneumonia. Discharge Date/Time: 04/05/20 14:07
[2020-04-05] MEDS ORDERED: CEFEPIME 2 GM in SODIUM CHLORIDE 0.9% MINIBAG 100 ML IV STA (11:06)
[2020-04-05] MEDS ORDERED: SODIUM CHLORIDE 0.9% IV STA (11:06)
[2020-04-05] MEDS ORDERED: DEXAMETHASONE 10 MG/ML VIAL IVP STA (11:07)
[2020-04-05] MEDS ORDERED: ALBUTEROL 1 PUFF INH STA (11:07)
[2020-04-05] MEDS ORDERED: AZITHROMYCIN INJ 500 MG in SODIUM CHLORIDE 0.9% 250 ML IV STA (11:11)
[2020-04-05 11:17] LABS: BASOPHILS % (AUTO) 0.7 %; EOSINOPHILS % (AUTO) 5.7 %; HGB - HEMOGLOBIN 7.2 g/dL (14.0-18.0); LYMPHOCYTES % (AUTO) 4.4 %; MEAN CORPUSCULAR HEMOGLOBIN 33.3 pg (27.0-31.0); MEAN CORPUSCULAR HGB CONC 30.6 g/dL (32.0-36.0); MEAN CORPUSCULAR VOLUME 108.8 fL (80.0-94.0); MEAN PLATELET VOLUME 11.5 fL (7.4-11.4); MONOCYTES % (AUTO) 10.6 %; NEUTROPHILS % (AUTO) 51.8 %; PLT - PLATELET COUNT 159 10^3/uL (130-450); RED BLOOD COUNT 2.16 10^6/uL (4.70-6.10); RED CELL DISTRIBUTION WIDTH 25.2 % (12.0-15.0); WHITE BLOOD COUNT 13.8 x10^3/uL (4.8-10.8)
[2020-04-05 11:24] LABS: ALBUMIN 3.2 g/dL (3.2-5.5); BILIRUBIN,TOTAL 0.9 mg/dL (0.2-1.0); CREATININE 1.1 mg/dL (0.6-1.2); TOTAL PROTEIN 6.4 g/dL (6.7-8.2)
--- NOTE | 2020-04-05 11:39 | XRAY Report ---
PROCEDURE: Chest 1 View X-Ray INDICATIONS: cough and fevers/ dyspnea TECHNIQUE: One view of the chest was acquired. COMPARISON: 01/28/2020. CT anterior chest 04/04/2020. FINDINGS: Surgical changes and devices: Left chest wall internal jugular Port-A-Cath redemonstrated with the ti p extending into the right atrium.. Lungs and pleura: There are decreased but persistent indistinct space opacities within the right kiera g base corresponding to residual consolidation in the right middle lobe seen on prior studies. No ple ural effusions or pneumothorax. Mediastinum: Mediastinal contours appear unchanged. Heart size is normal. Bones and chest wall: No suspicious bony lesions. Overlying soft tissues appear unremarkable. IMPRESSION: 1. Decreased but persistent indistinct right basilar opacities corresponding to resolving right middl e lobe consolidation. Recommendation continued follow-up to demonstrate resolution. Reviewed by: Max Gardiner MD on 04/05/2020 11:37 AM PDT Approved by: Max Gardiner MD on 04/05/2020 11:37 AM PDT Station ID: [id number]
[2020-04-05 11:41] LABS: BILIRUBIN,URINE NEGATIVE (NEGATIVE); GLUCOSE, URINE (UA) NEGATIVE (NEGATIVE); KETONES,URINE (UA) NEGATIVE (NEGATIVE); LEUKOCYTE ESTERASE, URINE NEGATIVE (NEGATIVE); NITRITE,URINE NEGATIVE (NEGATIVE); OCCULT BLOOD,URINE NEGATIVE (NEGATIVE); PH,URINE 6.5 PH (5.0-7.5); PROTEIN,URINE NEGATIVE (NEGATIVE); UROBILINOGEN,URINE 1 (NORMAL) E.U./dL (NORMAL)
[2020-04-05 11:43] LABS: ABNORMAL LYMPHS % (MANUAL) 0 %
[2020-04-05 11:45] LABS: BAND NEUTROPHILS % (MANUAL) 2 %; EOSINOPHILS # (MANUAL) 0.8 10^3/uL (0-0.7); LYMPHOCYTES # (MANUAL) 1.4 10^3/uL (1.5-3.5); LYMPHOCYTES % (MANUAL) 4 %; MONOCYTES # (MANUAL) 1.9 10^3/uL (0.0-1.0); MYELOCYTES % (MANUAL) 8 %
[2020-04-05 11:46] LABS: DIFFERENTIAL COMMENT MANUAL DIFFERENTIAL
[2020-04-05 12:01] LABS: BACTERIA,URINE Rare /HPF (None Seen); CLARITY,URINE CLEAR (CLEAR); RBC,URINE 0-5 /HPF (0-5); SQUAMOUS EPITHELIAL CELL,UR RARE Squamous (<= Few)
--- NOTE | 2020-04-05 12:05 | ANESTHESIA PROCEDURE NOTE ---
Anesth Central Line Template - Central Line Central Line Preparation: Unable to obtain consent, Time out completed, Ultra sound used, Sterile prep and drape Central line location: Right IJ Central line type: Triple lumen Central line catheter tip site resides: Superior vena cava (SVC) (Sutured at 17cm) Central line aftercare: Secured, Placement confirmed, No pneumothorax, No complications
[2020-04-05] MEDS ORDERED: LIDOCAINE VISCOUS 2% 15 ML UDC MM STA (13:43)
[2020-04-05] MEDS ORDERED: diphenhydrAMINE ELIXIR 25 MG/10 ML UDC PO STA (13:43)
[2020-04-05 14:15] VITALS: BP 129/68
== END 2020-04-05 14:07 | disposition home or self-care (01) ==
LOC: ED 09:46
DX: E11.9 Type 2 diabetes mellitus without complications (principal); I10 Essential (primary) hypertension; J22 Unspecified acute lower respiratory infection; Z20.828 Contact with and (suspected) exposure to other viral communicable diseases; Z79.4 Long term (current) use of insulin
CPT/HCPCS: 36415; 71045; 80053; 81001; 83605; 85025; 87040; 87070; 87077; 87086; 87181; 87205; 94640; 96365; 96366; 96368; 96375; 99284

== ENCOUNTER 2020-04-19 09:48 | Emergency (ER) | payer MEDICARE, OTHER ==
[2020-04-19] MEDS ORDERED: SODIUM CHLORIDE 0.9% 1,000 ML IV STA (10:22)
--- NOTE | 2020-04-19 10:24 | ED Physician Documentation ---
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 He came back to the [facility] clinic today for laboratory studies and he was found to be as short of breath is usually is and he was lightheaded dizzy and had a soft blood pressure. He has been sent to the emergency department for evaluation. He was treated earlier 1 month ago for pneumonia. Review of Systems Constitutional: reports: Fatigue. denies: Fever Eyes: denies: Decreased vision Ears: denies: Ear pain Nose: denies: Rhinorrhea / runny nose, Congestion Throat: denies: Sore throat Cardiac: reports: Palpitations. denies: Chest pain / pressure Respiratory: reports: Dyspnea. denies: Cough GI: denies: Abdominal Pain, Nausea, Vomiting : denies: Dysuria, Frequency Skin: denies: Rash Musculoskeletal: denies: Neck pain, Back pain, Extremity pain Neurologic: reports: Generalized weakness. denies: Focal weakness, Numbness PD PAST MEDICAL HISTORY - Past Medical History Cardiovascular: Hypertension, High cholesterol, Deep vein thrombosis, Pulmonary embolism Respiratory: None Neuro: None Endocrine/Autoimmune: Type 2 diabetes GI: None : None HEENT: None Psych: None Musculoskeletal: Other Derm: None - Past Surgical History Past Surgical History: Yes Ortho: Rotator cuff repair - Present Medications Home Medications: Ambulatory Orders Medication Instructions Recorded Confirmed Carvedilol 6.25 mg PO BID 06/29/13 04/19/20 Felodipine [Felodipine ER] 10 mg PO DAILY 06/29/13 04/19/20 Fenofibrate [Lofibra] 160 mg PO DAILY 06/29/13 04/19/20 Furosemide 20 mg PO DAILY 06/29/13 04/19/20 Gluc Coughlin/Chondro Coughlin A/Vit C/Mn 1 each PO DAILY 06/29/13 04/19/20 [Glucosamine 1,500 Complex Cp] Metformin HCl [Fortamet] 500 - 1,000 mg PO BID 06/29/13 04/19/20 Potassium Bicarbonate/Cit AC 60 meq PO TID 06/29/13 04/19/20 [Effer-K 20 Meq Tablet Eff] Simvastatin 20 mg PO DAILY 06/29/13 04/19/20 Telmisartan/Hydrochlorothiazid 1 tab PO DAILY 06/29/13 04/19/20 [Micardis Hct 80-25 mg Tablet] allopurinoL [Allopurinol] 300 mg PO DAILY 06/29/13 04/19/20 Spironolactone 25 mg PO DAILY 03/05/16 04/19/20 Terbinafine [LamISIL] 250 mg PO DAILY 06/30/18 04/19/20 Apixaban [Eliquis] 10 mg PO BID 12/29/18 04/19/20 Cyanocobalamin (Vitamin B-12) 1,000 mcg PO DAILY 03/30/19 04/19/20 [Vitamin B-12] Doxycycline Hyclate 100 mg PO BID #20 capsule 01/22/20 04/19/20 Hydrocodone/Acetaminophen 1 - 2 each PO Q6H PRN #14 tablet 01/22/20 04/19/20 [Hydrocodon-Acetaminophen 5-325] Glipizide 10 mg PO DAILY 02/29/20 04/19/20 Insulin Glargine [Lantus Solostar] 15 unit SQ QPM 02/29/20 04/19/20 Insulin Aspart [NovoLOG] 5 units SQ DAILY 03/07/20 04/19/20 predniSONE [Prednisone] 20 mg PO DAILY 03/07/20 04/19/20 Benzonatate [Tessalon Perle] 100 mg PO TID PRN #25 capsule 04/05/20 04/19/20 cefUROXime axetiL [Ceftin] 500 mg PO BID #14 tablet 04/05/20 04/19/20 Albuterol Sulfate [Albuterol 2 puffs IH QID PRN #1 hfa.aer.ad 04/12/20 Sulfate Hfa] - Allergies Allergies/Adverse Reactions: Allergies Allergy/AdvReac Type Severity Reaction Status Date / Time adhesive tape Allergy Rash Verified 04/19/20 09:15 - Social History Does the pt smoke?: No Smoking Status: Never smoker Does the pt drink ETOH?: No Does the pt have substance abuse?: No - Immunizations Immunizations are current?: Yes - POLST Patient has POLST: No POLST Status: Full Code PD ED PE NORMAL - Vitals Vital signs reviewed: Yes (tachypneic and hypotensive ) - General General: Alert and oriented X 3, Well developed/nourished, Other (The patient is tachypneic at rest ) - HEENT HEENT: Atraumatic, PERRL, EOMI - Neck Neck: Supple, no meningeal sign - Cardiac Cardiac: RRR, No murmur - Respiratory Respiratory: No respiratory distress, Clear bilaterally - Abdomen Abdomen: Normal bowel sounds, Soft, Non tender, Non distended, No organomegaly - Back Back: No CVA TTP, No spinal TTP - Derm Derm: Normal color, Warm and dry, No rash - Extremities Extremities: No deformity, Other (mild trace edema to LE bilat) - Neuro Neuro: Alert and oriented X 3, typing bookkeeper 2-12 intact, No motor deficit, No sensory deficit, Normal speech Eye Opening: Spontaneous Motor: Obeys Commands Verbal: Oriented GCS Score: 15 - Psych Psych: Normal mood, Normal affect Results - Vitals Vitals: Vital Signs - 24 hr 04/19/20 04/19/20 04/19/20 09:53 10:29 10:30 Temperature 37.1 C Heart Rate 78 72 70 Respiratory 28 H 20 21 Rate Blood Pressure 96/43 L 98/50 L 96/60 O2 Saturation 100 96 98 04/19/20 04/19/20 04/19/20 11:00 11:30 12:00 Temperature Heart Rate 68 67 68 Respiratory 20 20 18 Rate Blood Pressure 99/50 L 102/47 L 114/52 L O2 Saturation 99 99 98 04/19/20 04/19/20 04/19/20 12:30 13:00 13:30 Temperature Heart Rate 69 69 82 Respiratory 19 18 20 Rate Blood Pressure 121/49 L 121/59 L 129/56 L O2 Saturation 98 94 95 04/19/20 04/19/20 04/19/20 13:51 13:56 14:06 Temperature 37.1 C 37.3 C 37.3 C Heart Rate 72 74 73 Respiratory 18 20 19 Rate Blood Pressure 122/51 L 118/44 L 121/56 L O2 Saturation 04/19/20 04/19/20 04/19/20 14:30 15:00 15:30 Temperature Heart Rate 74 75 77 Respiratory 18 19 20 Rate Blood Pressure 126/51 L 134/60 H 125/63 O2 Saturation 96 100 95 04/19/20 04/19/20 04/19/20 16:00 16:30 16:51 Temperature 37.5 C Heart Rate 80 85 86 Respiratory 21 20 20 Rate Blood Pressure 117/56 L 128/63 116/56 L O2 Saturation 96 95 04/19/20 04/19/20 04/19/20 17:00 17:30 18:00 Temperature Heart Rate 87 82 89 Respiratory 18 19 20 Rate Blood Pressure 129/64 130/64 118/61 O2 Saturation 97 95 97 04/19/20 04/19/20 04/19/20 18:13 18:30 18:58 Temperature 38.2 C H 37.6 C H Heart Rate 87 92 82 Respiratory 18 19 20 Rate Blood Pressure 120/64 131/63 H O2 Saturation 97 94 95 04/19/20 19:00 Temperature Heart Rate 98 Respiratory 18 Rate Blood Pressure 123/52 L O2 Saturation 96 Oxygen O2 Source Room air - EKG (time done) 1000 Rate: Rate (enter#) (71) Rhythm: NSR [place]: LAD Intervals: Prolonged SD Compare to prior EKG: Unchanged from prior EKG (SPT 04-17-2014 no change) Computer interpretation: Agree with computer - Labs Labs: Laboratory Tests 04/19/20 04/19/20 04/19/20 10:42 10:42 10:42 WBC 13.5 H RBC 1.98 L Hgb 6.2 L* Hct 20.7 L MCV 104.5 H MCH 31.3 H MCHC 30.0 L RDW 23.7 H Plt Count 127 L MPV 10.8 Neut # (Auto) Not Reportable Lymph # (Auto) Not Reportable [place] # (Auto) Not Reportable Eos # (Auto) Not Reportable Baso # (Auto) Not Reportable Absolute Nucleated RBC Not Reportable Total Counted 100 Band Neuts % (Manual) 6 Reactive Lymphs % (Man) 6 Abnorm Lymph % (Manual) 0 Metamyelocytes % 2 H Myelocytes % 6 H Nucleated RBC % Not Reportable Neutrophils # (Manual) 8.1 H Lymphocytes # (Manual) 1.9 Monocytes # (Manual) 1.9 H Eosinophils # (Manual) 0.5 Basophils # (Manual) 0.0 Nucleated RBCs 2 Differential Comment MANUAL DIFFERENTIAL Manual Slide Review Indicated Sodium 128 L Potassium 5.4 H Chloride 98 L Carbon Dioxide 18 L Anion Gap 12.0 BUN 36 H Creatinine 1.5 H Estimated GFR (MDRD) 46 L Glucose 246 H Lactic Acid Calcium 8.3 L Total Bilirubin 0.9 AST 15 ALT 20 Alkaline Phosphatase 37 L B-Natriuretic Peptide 244 H Total Protein 6.1 L Albumin 2.5 L Globulin 3.6 Albumin/Globulin Ratio 0.7 L Lipase 54 H Urine Color Urine Clarity Urine pH Ur Specific [place] Urine Protein Urine Glucose (UA) Urine Ketones Urine Occult Blood Urine Nitrite Urine Bilirubin Urine Urobilinogen Ur Leukocyte Esterase Ur Microscopic Review Urine Culture Comments Blood Type Antibody Screen Crossmatch IS Only 04/19/20 04/19/20 04/19/20 10:42 11:25 12:20 WBC RBC Hgb Hct MCV MCH MCHC RDW Plt Count MPV Neut # (Auto) Lymph # (Auto) [place] # (Auto) Eos # (Auto) Baso # (Auto) Absolute Nucleated RBC Total Counted Band Neuts % (Manual) Reactive Lymphs % (Man) Abnorm Lymph % (Manual) Metamyelocytes % Myelocytes % Nucleated RBC % Neutrophils # (Manual) Lymphocytes # (Manual) Monocytes # (Manual) Eosinophils # (Manual) Basophils # (Manual) Nucleated RBCs Differential Comment Manual Slide Review Sodium Potassium Chloride Carbon Dioxide Anion Gap BUN Creatinine Estimated GFR (MDRD) Glucose Lactic Acid 2.0 Calcium Total Bilirubin AST ALT Alkaline Phosphatase B-Natriuretic Peptide Total Protein Albumin Globulin Albumin/Globulin Ratio Lipase Urine Color DARK YELLOW Urine Clarity CLEAR Urine pH 5.0 Ur Specific [place] 1.020 Urine Protein TRACE Urine Glucose (UA) NEGATIVE Urine Ketones NEGATIVE Urine Occult Blood NEGATIVE Urine Nitrite NEGATIVE Urine Bilirubin NEGATIVE Urine Urobilinogen 0.2 (NORMAL) Ur Leukocyte Esterase NEGATIVE Ur Microscopic Review NOT INDICATED Urine Culture Comments NOT INDICATED Blood Type O NEGATIVE Antibody Screen NEGATIVE Crossmatch IS Only See Detail - Rads (name of study) chest Radiology: Prelim report reviewed (Impression: No acute: Pulmonary process.), EMP read indepedently, See rad report PD MEDICAL DECISION MAKING - ED course Complexity details: reviewed old records, reviewed results, re-evaluated patient, considered differential, d/w patient ED course: 69 y/o male with MDS requires acute transfusion in the ED today with low hemoglobin. He is symptomatic and was symptomatic last week when he received a 2 unit transfusion. He did not think the transfusion helped last week. I offered to put the patient into the hospital for this transfusion and he asked to be treated in the ED. Today he is given 2 units of irradiated blood and feels improved. He has an appointment to see the oncologist next Saturday. I went into the patients room to discharge him and then found that he had only been given one unit of blood. He needs his second unit and he developed a low grade fever with the transfusion. He is administered benadryl and tylenol prior to the transfusion of the second unit. He is insisting on going home and at shift change his care is turned over to Dr. Sherman. Departure - Departure Clinical Impression: Symptomatic anemia Condition: Stable Instructions: ED Anemia Type Not Specified Follow-Up: Ben Hughes DO [Primary Care Provider] - Comments: Follow up with the [facility] as planned next Saturday. If you develop worsening symptoms before then return to the ED.
[2020-04-19 10:52] LABS: BASOPHILS % (AUTO) 1.3 %; EOSINOPHILS % (AUTO) 4.4 %; LYMPHOCYTES % (AUTO) 7.6 %; MEAN CORPUSCULAR HEMOGLOBIN 31.3 pg (27.0-31.0); MEAN CORPUSCULAR VOLUME 104.5 fL (80.0-94.0); MEAN PLATELET VOLUME 10.8 fL (7.4-11.4); MONOCYTES % (AUTO) 12.9 %; NEUTROPHILS % (AUTO) 42.1 %; PLT - PLATELET COUNT 127 10^3/uL (130-450); RED BLOOD COUNT 1.98 10^6/uL (4.70-6.10); RED CELL DISTRIBUTION WIDTH 23.7 % (12.0-15.0); WHITE BLOOD COUNT 13.5 x10^3/uL (4.8-10.8)
[2020-04-19 10:53] LABS: HGB - HEMOGLOBIN 6.2 g/dL (14.0-18.0)
[2020-04-19 11:08] LABS: ALBUMIN 2.5 g/dL (3.2-5.5); ALBUMIN/GLOBULIN RATIO 0.7 (1.0-2.2); BILIRUBIN,TOTAL 0.9 mg/dL (0.2-1.0); CALCIUM 8.3 mg/dL (8.5-10.3); CREATININE 1.5 mg/dL (0.6-1.2); TOTAL PROTEIN 6.1 g/dL (6.7-8.2)
[2020-04-19 11:15] LABS: ABNORMAL LYMPHS % (MANUAL) 0 %
[2020-04-19 11:19] LABS: BAND NEUTROPHILS % (MANUAL) 6 %; DIFFERENTIAL COMMENT MANUAL DIFFERENTIAL; EOSINOPHILS # (MANUAL) 0.5 10^3/uL (0-0.7); LYMPHOCYTES # (MANUAL) 1.9 10^3/uL (1.5-3.5); LYMPHOCYTES % (MANUAL) 8 %; METAMYELOCYTES % (MANUAL) 2 %; MONOCYTES # (MANUAL) 1.9 10^3/uL (0.0-1.0); MYELOCYTES % (MANUAL) 6 %
--- NOTE | 2020-04-19 11:29 | XRAY Report ---
PROCEDURE: Chest 1 View X-Ray INDICATIONS: chest pain TECHNIQUE: One view of the chest was acquired. COMPARISON: Chest x-ray 04/05/2020 FINDINGS: Surgical changes and devices: Left Port-A-Cath is unchanged. Lungs and pleura: No pleural effusions or pneumothorax. Linear opacity is present within the left ba se, unchanged likely representing atelectasis versus scarring. Mediastinum: Mediastinal contours appear normal. Heart size is normal. Bones and chest wall: No suspicious bony lesions. Overlying soft tissues appear unremarkable. IMPRESSION: No acute pulmonary process. Reviewed by: Lawanda Thornton MD on 04/19/2020 11:28 AM PDT Approved by: Lawanda Thornton MD on 04/19/2020 11:28 AM PDT Station ID: [id number]
[2020-04-19 11:37] LABS: BILIRUBIN,URINE NEGATIVE (NEGATIVE); GLUCOSE, URINE (UA) NEGATIVE (NEGATIVE); KETONES,URINE (UA) NEGATIVE (NEGATIVE); LEUKOCYTE ESTERASE, URINE NEGATIVE (NEGATIVE); NITRITE,URINE NEGATIVE (NEGATIVE); OCCULT BLOOD,URINE NEGATIVE (NEGATIVE); PROTEIN,URINE TRACE mg/dL (NEGATIVE); UROBILINOGEN,URINE 0.2 (NORMAL) E.U./dL (NORMAL)
[2020-04-19 11:38] LABS: CLARITY,URINE CLEAR (CLEAR)
[2020-04-19] MEDS ORDERED: ACETAMINOPHEN 325 MG TABLET PO STA (18:22)
[2020-04-19] MEDS ORDERED: diphenhydrAMINE INJ 50 MG/ML VIAL IVP STA (18:22)
--- NOTE | 2020-04-19 20:42 | ED Physician Documentation ---
ED Addendum - Addendum Addendum: patient signed out to me at shift change by dr. umesh turk. patient has completed 2nd unit of prbc, patient feeling better. patient to be dcd home with close follow up. 04/19/20 20:41 Departure - Departure Disposition: 01 Home, Self Care Clinical Impression: Symptomatic anemia Condition: Stable Instructions: ED Anemia Type Not Specified Follow-Up: Ben Hughes DO [Primary Care Provider] - Comments: Follow up with the [facility] as planned next Saturday. If you develop worsening symptoms before then return to the ED.
[2020-04-19 21:16] VITALS: BP 112/70
== END 2020-04-19 21:00 | disposition home or self-care (01) ==
LOC: ED 09:48
DX: D64.9 Anemia, unspecified (principal); R50.84 Febrile nonhemolytic transfusion reaction; I10 Essential (primary) hypertension; E11.9 Type 2 diabetes mellitus without complications; Z79.4 Long term (current) use of insulin
CPT/HCPCS: 36415; 36430; 71045; 80053; 81003; 83605; 83690; 83880; 85025; 86850; 86900; 86901; 86920; 87040; 93005; 96361; 96374; 96375; 99284; 99285; A9270; J1200; P9016; 81001; 87086

== ENCOUNTER 2020-04-21 14:11 | Outpatient (CLI) | payer MEDICARE, OTHER ==
[2020-04-21] MEDS ORDERED: IOVERSOL 320 50 ML VIAL ONE (14:35)
[2020-04-21] MEDS ORDERED: IOVERSOL 320 100 ML VIAL IVP ONE ×2 (14:35→17:49)
--- NOTE | 2020-04-21 16:25 | CT Report ---
PROCEDURE: Abdomen/Pelvis W INDICATIONS: RLQ,ABD PX CONTRAST: IV CONTRAST: Optiray 320 ml: 100 PO CONTRAST: Optiray 320 ml50 TECHNIQUE: After the administration of IV and oral contrast, 5 mm thick sections acquired from the diaphragms to the symphysis. 5 mm thick coronal and sagittal reformats were acquired. For radiation dose reducti on, the following was used: automated exposure control, adjustment of mA and/or kV according to jamshid ent size. COMPARISON: 03/01/2020. FINDINGS: Image quality: Excellent. ABDOMEN: Lung bases: Persistent airspace consolidation in posterior right middle lobe is again seen slightly d ecreased in size since 04/04/2020 study. Left basilar scarring/atelectasis posteriorly is also seen. N o pleural effusion or pneumothorax. Heart size is enlarged, no pericardial effusion. Solid organs: Liver and spleen are normal in size and enhancement. Gallbladder contains multiple sm all stones in its dependent portion. No gallbladder wall thickening or pericholecystic fluid. Biliar y system is non dilated. Previously described cystic lesions involving pancreatic head and body are a gain seen and measures up to 2.6 x 2.5 cm in size series 3 image 35, unchanged in size and appearance from prior studies. No adrenal nodules. Kidneys demonstrate normal size and enhancement, without hy dronephrosis. Bilateral renal cysts are again seen, unchanged from prior study. 3 mm nonobstructing stone in midpole of right kidney is again noted and unchanged. Peritoneum and bowel: There is no evidence of bowel obstruction. There is mild wall thickening with a djacent mesenteric fat stranding involving the ileocecal junction and terminal ileum concerning for i leocolitis. No abscess collection. Trace amount of free fluid is seen in right pericolic gutter. No p eritoneal free air. Colonic diverticulosis is again seen, no CT evidence of acute diverticulitis. Nodes and vessels: No retroperitoneal or mesenteric adenopathy by size criteria. Aorta and inferior vena cava are normal in size. Mild atherosclerotic disease is seen. Miscellaneous: No ventral hernias. PELVIS: Genitourinary: Bladder wall thickness is normal. Miscellaneous: No inguinal hernias or adenopathy. Bones: No suspicious bony lesions. No vertebral body compression fractures. IMPRESSION: 1. Suggestion of wall thickening involving terminal ileum, ileocecal junction and proximal portion of ascending colon concerning for infectious inflammatory enterocolitis. No evidence of bowel obstructi on. No peritoneal free air. A trace amount of free fluid in right pericolic gutter. Colonic diverticu losis without evidence of acute diverticulitis. 2. Stable cystic lesions involving pancreas as above, unchanged in size from prior studies. 3. Persistent infiltrate/atelectasis in right middle lobe minimally decreased in size since 04/04/2020 study. 4. No gross lymphadenopathy is seen in abdomen or pelvis. 5. Cholelithiasis, no CT evidence of acute cholecystitis. Reviewed by: Gunner Gilman MD on 04/21/2020 4:24 PM PDT Approved by: Gunner Gilman MD on 04/21/2020 4:24 PM PDT Station ID: [id number]
[2020-04-21] MEDS ORDERED: IOVERSOL 320 50 ML VIAL PO ONE (17:45)
== END 2020-04-21 14:12 | disposition home or self-care (01) ==
LOC: DI 14:11
PROVIDERS: ATTEND Family Medicine
DX: R93.3 Abnormal findings on diagnostic imaging of other parts of digestive tract (principal); K57.30 Diverticulosis of large intestine without perforation or abscess without bleeding; K86.2 Cyst of pancreas; J98.11 Atelectasis; K80.20 Calculus of gallbladder without cholecystitis without obstruction
CPT/HCPCS: 74177; Q9967

== ENCOUNTER 2020-11-25 17:40 | Outpatient (CLI) | payer MEDICARE, OTHER | END 2020-11-25 17:41 | disposition critical access hospital (66) | LOC: EMS 17:40 | DX: S09.90XA Unspecified injury of head, initial encounter (principal); R46.4 Slowness and poor responsiveness; W18.39XA Other fall on same level, initial encounter; Y93.89 Activity, other specified; Y92.002 Bathroom of unspecified non-institutional (private) residence as the place of occurrence of the external cause | CPT/HCPCS: A0425; A0429 ==

== ENCOUNTER 2020-11-25 18:00 | Inpatient (IN) | payer MEDICARE, OTHER ==
--- NOTE | 2020-11-25 18:27 | ED Physician Documentation ---
History of Present Illness - Stated complaint Stated Complaint: WEAKNESS, GLF, NOT EATING OR DRINKING - Chief complaint Chief Complaint: General - History obtained from History obtained from: Patient, Family, EMS - Additonal information Additional information: 70-year-old gentleman anticoagulated for A. fib, has myelodysplastic syndrome and a couple days ago had bone marrow biopsy. Since then he has been weak and feverish up to 102/103 at home. Noted to be hypoxemic at home down to 88. Today he had a trip and fall hitting his head on the ground. No loss of consciousness. He has a scrape on the top of his head that really denies injury. No headache. He did have a headache yesterday though. Review of Systems Ten Systems: 10 systems reviewed and negative Constitutional: reports: Fever, Chills Respiratory: denies: Dyspnea, Cough GI: denies: Abdominal Pain, Nausea : denies: Dysuria, Frequency PD PAST MEDICAL HISTORY - Past Medical History Cardiovascular: Hypertension, High cholesterol, Deep vein thrombosis, Pulmonary embolism Respiratory: None Neuro: None Endocrine/Autoimmune: Type 2 diabetes GI: None : None HEENT: None Psych: None Musculoskeletal: Other Derm: None - Past Surgical History Past Surgical History: Yes Ortho: Rotator cuff repair - Present Medications Home Medications: Ambulatory Orders Medication Instructions Recorded Confirmed Fenofibrate [Lofibra] 160 mg PO DAILY 06/29/13 11/25/20 Metformin HCl [Fortamet] 500 - 1,000 mg PO BID 06/29/13 11/25/20 Simvastatin 20 mg PO DAILY 06/29/13 11/25/20 Telmisartan/Hydrochlorothiazid 1 tab PO DAILY 06/29/13 11/25/20 [Micardis Hct 80-25 mg Tablet] allopurinoL [Allopurinol] 300 mg PO DAILY 06/29/13 11/25/20 Apixaban [Eliquis] 10 mg PO BID 12/29/18 11/25/20 Glipizide 10 mg PO DAILY 02/29/20 11/25/20 Omeprazole 10 mg PO DAILY 05/17/20 11/25/20 Potassium Chloride 20 meq PO DAILY 05/17/20 11/25/20 Prochlorperazine Maleate 10 mg PO DAILY 05/17/20 11/25/20 carvediloL [Coreg] 3.125 mg PO BID 05/17/20 11/25/20 Acyclovir [Zovirax] 400 mg PO BID 06/06/20 11/25/20 Sulfamethox/Trimeth 800/160 1 tab PO BID 06/06/20 11/25/20 [Bactrim Ds] - Allergies Allergies/Adverse Reactions: Allergies Allergy/AdvReac Type Severity Reaction Status Date / Time adhesive tape Allergy Rash Verified 11/08/20 09:58 - Social History Does the pt smoke?: No Smoking Status: Never smoker Does the pt drink ETOH?: No Does the pt have substance abuse?: No - Immunizations Immunizations are current?: Yes - POLST Patient has POLST: No POLST Status: Full Code PD ED PE NORMAL - Vitals Vital signs reviewed: Yes - General General: Alert and oriented X 3, No acute distress - HEENT HEENT: PERRL, EOMI, Other (Scrape on the top of the head) - Neck Neck: Supple, no meningeal sign, No bony TTP - Cardiac Cardiac: RRR, No murmur - Respiratory Respiratory: No respiratory distress, Other (Diminished at the right base) - Abdomen Abdomen: Non tender - Back Back: No CVA TTP, No spinal TTP - Derm Derm: Normal color, Warm and dry - Extremities Extremities: No edema, No calf tenderness / cord, Other (Venous stasis changes) - Neuro Neuro: Alert and oriented X 3, Normal speech Results - Vitals Vitals: Vital Signs - 24 hr 11/25/20 11/25/20 11/25/20 18:04 18:30 19:18 Temperature 38.7 C H Heart Rate 98 100 91 Respiratory 28 H 24 17 Rate Blood Pressure 102/87 H 102/87 H 139/78 H O2 Saturation 99 96 95 Oxygen O2 Source Room air - EKG (time done) 1816 Rate: Rate (enter#) (96) Rhythm: NSR (w pac) [place]: LAD Intervals: Prolonged [place] QRS: Normal Ischemia: Normal ST segments - Labs Labs: Laboratory Tests 11/25/20 11/25/20 11/25/20 18:31 18:31 18:31 WBC 0.9 L* RBC 2.60 L Hgb 8.9 L Hct 26.6 L MCV 102.3 H MCH 34.2 H MCHC 33.5 RDW 16.5 H Plt Count 47 L Neut # (Auto) Not Reportable Lymph # (Auto) Not Reportable Glades # (Auto) Not Reportable Eos # (Auto) Not Reportable Baso # (Auto) Not Reportable Absolute Nucleated RBC Not Reportable Total Counted 100 Band Neuts % (Manual) 2 Abnorm Lymph % (Manual) 0 Nucleated RBC % Not Reportable Neutrophils # (Manual) 0.5 L* Lymphocytes # (Manual) 0.3 L Monocytes # (Manual) 0.1 Eosinophils # (Manual) 0.0 Basophils # (Manual) 0.0 Differential Comment MANUAL DIFFERENTIAL WBC Morphology NORMAL APPEARANCE Platelet Estimate DECREASED (<130,000) Platelet Morphology NORMAL APPEARANCE RBC Morph Micro Appear NORMAL APPEARANCE Sodium 131 L Potassium 3.2 L Chloride 100 L Carbon Dioxide 23 Anion Gap 8.0 BUN 15 Creatinine 1.1 Estimated GFR (MDRD) 66 L Glucose 189 H Lactic Acid 1.3 Calcium 8.6 Total Bilirubin 1.2 H AST 19 ALT 15 Alkaline Phosphatase 27 L Total Protein 6.3 L Albumin 3.8 Globulin 2.5 Albumin/Globulin Ratio 1.5 - Rads (name of study) CT Head and Cpine Radiology: EMP read contemporaneously (atrophy, DDD< NAD) CXR Radiology: EMP read contemporaneously (NAD) PD MEDICAL DECISION MAKING - ED course ED course: 70-year-old gentleman with atrial fibrillation and myelodysplastic syndrome on anticoagulation has been ill over the last few days with fever and presumably because of the illness then had a mechanical fall today hitting his head and was brought in as a modified trauma. 70-year-old gentleman with atrial fibrillation anticoagulated on a DOAC presents after a fall but he has had a fever for 2 days and he is neutropenic with a port in place. As such she was cultured up and given cefepime and vancomycin. Head and neck CTs were negative for acute trauma. Given the neutropenic fever spoke with Dr. Avalos for admission at 7:56 PM. Departure - Departure Disposition: [facility] DC/Xfer Clinical Impression: Neutropenic fever, Adequate anticoagulation on anticoagulant therapy Fall Qualifiers: Encounter type: initial encounter Qualified Code(s): W19.XXXA - Unspecified fall, initial encounter Head injury Qualifiers: Encounter type: initial encounter Qualified Code(s): S09.90XA - Unspecified injury of head, initial encounter Condition: Stable
[2020-11-25 18:44] LABS: BASOPHILS % (AUTO) 1.1 %; HCT - HEMATOCRIT 26.6 % (42.0-52.0); HGB - HEMOGLOBIN 8.9 g/dL (14.0-18.0); LYMPHOCYTES % (AUTO) 30.1 %; MEAN CORPUSCULAR HEMOGLOBIN 34.2 pg (27.0-31.0); MEAN CORPUSCULAR HGB CONC 33.5 g/dL (32.0-36.0); MEAN CORPUSCULAR VOLUME 102.3 fL (80.0-94.0); MONOCYTES % (AUTO) 8.6 %; NEUTROPHILS % (AUTO) 55.9 %; PLT - PLATELET COUNT 47 10^3/uL (130-450); RED CELL DISTRIBUTION WIDTH 16.5 % (12.0-15.0)
[2020-11-25 18:47] LABS: WHITE BLOOD COUNT 0.9 x10^3/uL (4.8-10.8)
[2020-11-25 18:49] LABS: ABNORMAL LYMPHS % (MANUAL) 0 %
[2020-11-25] MEDS ORDERED: CEFEPIME 2 GM in SODIUM CHLORIDE 0.9% MINIBAG 100 ML IV STA (18:50)
[2020-11-25 18:53] LABS: ALBUMIN 3.8 g/dL (3.2-5.5); ALBUMIN/GLOBULIN RATIO 1.5 (1.0-2.2); BILIRUBIN,TOTAL 1.2 mg/dL (0.2-1.0); CALCIUM 8.6 mg/dL (8.5-10.3); CREATININE 1.1 mg/dL (0.6-1.2); POTASSIUM 3.2 mmol/L (3.5-5.0); TOTAL PROTEIN 6.3 g/dL (6.7-8.2)
[2020-11-25] MEDS ORDERED: VANCOMYCIN INJ 1.5 GM in SODIUM CHLORIDE 0.9% 500 ML IV STA (18:55)
[2020-11-25 19:02] LABS: BAND NEUTROPHILS % (MANUAL) 2 %; LYMPHOCYTES # (MANUAL) 0.3 10^3/uL (1.5-3.5); LYMPHOCYTES % (MANUAL) 37 %; MONOCYTES # (MANUAL) 0.1 10^3/uL (0.0-1.0); NEUTROPHILS # (MANUAL) 0.5 10^3/uL (1.5-6.6)
[2020-11-25 19:03] LABS: RBC MORPHOLOGY (MULTIPLE) NORMAL APPEARANCE (NORMAL)
[2020-11-25 19:04] LABS: DIFFERENTIAL COMMENT MANUAL DIFFERENTIAL; PLATELET ESTIMATE, MANUAL DECREASED (<130,000) (NORMAL); PLATELET MORPHOLOGY NORMAL APPEARANCE (NORMAL); WBC MORPHOLOGY (MULTIPLE) NORMAL APPEARANCE (NORMAL)
[2020-11-25] MEDS ORDERED: POTASSIUM CHLORIDE 20 MEQ TABLET PO STA (19:04)
--- NOTE | 2020-11-25 19:13 | CT Report ---
PROCEDURE: HEAD WO INDICATIONS: Trauma, pain TECHNIQUE: Noncontrast 4.5 mm thick angled axial sections acquired from the foramen magnum to the vertex. For r adiation dose reduction, the following was used: automated exposure control, adjustment of mA and/or kV according to patient size. COMPARISON: None. FINDINGS: Image quality: Excellent. CSF spaces: Basal cisterns are patent. No extra-axial fluid collections. Ventricles are normal in size and shape. Moderate atrophy and multifocal chronic ischemic change noted. Atherosclerotic vascu lar calcification noted in the cavernous portions of the internal carotid arteries. Brain: No midline shift. No intracranial masses or hemorrhage. Rolle-white matter interface is norm al. Skull and face: Calvarium and visualized facial bones are intact, without suspicious lesions. Sinuses: Visualized sinuses and mastoids are clear. IMPRESSION: Atrophy and chronic ischemic change without acute hemorrhage or mass effect. Reviewed by: Poncho Carrington MD on 11/25/2020 6:12 PM AKSTEF Approved by: Poncho Carrington MD on 11/25/2020 6:12 PM AKDT Station ID: [id number]
--- NOTE | 2020-11-25 19:20 | CT Report ---
PROCEDURE: CERVICAL SPINE WO INDICATIONS: Trauma, pain TECHNIQUE: Noncontrast 3 mm thick sections acquired from the skull base to the T4 level. Sagittal and coronal r eformats were then constructed. For radiation dose reduction, the following was used: automated exp osure control, adjustment of mA and/or kV according to patient size. COMPARISON: None. FINDINGS: Image quality: Excellent. Bones: No fractures or dislocations. Visualized superior ribs are intact. There is disc space narr owing present at C4-5 and C5-6 with hypertrophic facet changes throughout the exam. Bilateral foramin al stenosis present particularly at C3-4 on the right, and there is facet ankylosis noted at C2-3 on the right as well. Soft tissues: Prevertebral soft tissues are normal in thickness. No paravertebral hematomas. No ap ical pneumothoraces. Left IJ central venous line in place. Atherosclerotic vascular calcification not ed in the carotids bilaterally. IMPRESSION: No evidence of fracture or malalignment. Multilevel degenerative disc disease and arthropathy resulting in moderate right foraminal stenosis a t C3-4 Reviewed by: Poncho Carrington MD on 11/25/2020 6:18 PM AKDT Approved by: Poncho Carrington MD on 11/25/2020 6:18 PM AKDT Station ID: [id number]
--- NOTE | 2020-11-25 19:48 | XRAY Report ---
PROCEDURE: Chest 1 View X-Ray INDICATIONS: hypoxemia and fever TECHNIQUE: One view of the chest was acquired. COMPARISON: None FINDINGS: Surgical changes and devices: A left chest wall port appears well-positioned. Lungs and pleura: No pleural effusions or pneumothorax. Lungs are clear. Mediastinum: Mediastinal contours appear normal. Heart size is normal. The aorta has atherosclerot ic calcifications. Bones and chest wall: No suspicious bony lesions. Overlying soft tissues appear unremarkable. IMPRESSION: No acute cardiopulmonary abnormality. Reviewed by: Shreyas Smith on 11/25/2020 7:47 PM PDT Approved by: Shreyas Smith on 11/25/2020 7:47 PM PDT Station ID: [id number]
[2020-11-25] MEDS ORDERED: ONDANSETRON 4 MG/2 ML VIAL IVP PRN (19:55)
[2020-11-25] MEDS ORDERED: oxyCODONE 5 MG TABLET PO PRN (19:55)
[2020-11-25] MEDS ORDERED: ONDANSETRON ODT 4 MG TABLET TL PRN (19:55)
[2020-11-25] MEDS ORDERED: VANCOMYCIN 1 GM VIAL ONE (19:57)
[2020-11-25 19:58] LABS: B. PARAPERTUSSIS- RESP PCR PAN NOT DETECTED; B. PERTUSSIS- RESP PCR PANEL NOT DETECTED; C. PNEUMONIAE- RESP PCR PANEL NOT DETECTED; CORONAVIRUS 229E-RESP PCR NOT DETECTED; CORONAVIRUS HKU1-RESP PCR NOT DETECTED; CORONAVIRUS NL63-RESP PCR NOT DETECTED; CORONAVIRUS OC43-RESP PCR NOT DETECTED; HUMAN METAPNEUMOVIRUS NOT DETECTED; INFLUENZA A- RESP PCR PANEL NOT DETECTED; INFLUENZA B - RESP PCR PANEL NOT DETECTED; M. PNEUMONIAE- RESP PCR PANEL NOT DETECTED; PARAINFLUENZA VIRUS 1 NOT DETECTED; PARAINFLUENZA VIRUS 2 NOT DETECTED; PARAINFLUENZA VIRUS 3 NOT DETECTED; PARAINFLUENZA VIRUS 4 NOT DETECTED; RHINOVIRUS/ENTEROVIRUS NOT DETECTED; RSV- RESP PCR PANEL NOT DETECTED; SARS-CoV-2 -RESP PCR PANEL NOT DETECTED
--- NOTE | 2020-11-25 20:27 | HISTORY & PHYSICAL EXAMINATION ---
Chief Complaint - Chief Complaint Chief Complaint: fall today History of Present Illness - Admitted From Admitted From:: home - History Obtained From Records Reviewed: [facility] History obtained from: Patient and Dr. Smith Exam Limitations: none - History of Present Illness HPI Comment/Other: 70 year-old man who was diagnosed w CLL June 2013 and presented as leukocytosis and lymphadenopathy since January 2013. Bendamustine and Rituxan induction FCR completed 12/2013. Profound bone marrow suppression. Has been on prolonged colony-stimulating factor support since that time. Does have history of neutropenic fever in the past. Worsening adenopathy February 2016. Revlimid started September 2016. Subsequent fatigue, nausea, vomiting. Change to ibrutinib that month. That was given until February 2020 when a repeat bone marrow biopsy change the diagnosis to myelodysplastic syndrome with refractory anemia. Has been treated with irradiated blood for anemia. On B12 injections. Iron infusions. Steroids use. Palliative hypomethylating agent azacitridine started April 2020. Only did 1 cycle due to drug shortage. Change to decitabine 05/2020 with 5th cycle 10/2020. second opinion [facility] 2019 and no bone marrow transplant candidate at this time. Started on acyclovir and Bactrim for prophylaxis. Bone marrow biopsy done this week to see if he is a candidate to continue with cycle #6. 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 Ever since he got his bone marrow biopsy he has not felt well. Very weak, mildly dyspneic, and started getting a fever to 102 and sometimes 103. He checks his pulse oximeter and at home he was 88% on room air. The day of his bone marrow biopsy he lost his appetite. Has not been eating or drinking very much for the last 2 days and his daughter has been forcing him. 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 No blood. No abdominal pain. No dysuria or hematuria. He has chronic signs of prostatism and has the usual signs of urgency and frequency and decreased stream. His weakness and fatigue finally made him so dizzy that he slipped off the toilet at 3 am but got up and managed to get back to bed. Then he slid out of bed and landed between wall and bed. Managed to get himself up by pulling on the bedframe. Then a 3rd dizzy episode caused him to trip and fall, and could not regain his balance. When he fell and hit his head on the ground. No loss of consciousness. Currently no bl urred vision, focal deficit, dysphagia or dysarthria. He is chronically anticoagulated because of his history of DVT in 2004 and pulmonary embolism in 2007. Platelets are monitored frequently due to his pancytopenia and he is continued on anticoagulation. He was seen by Dr. Smith in the emergency room where temperature was 38.7, pulse 98, blood pressure 102/87. Respirations 28, 96% on room air. He is alert and oriented in no acute distress. Abrasion on the top of his scalp. Diminished right breath sounds at the base. But no tachypnea or respiratory distress. No leg edema but he does have chronic venous stasis changes. Evaluation showed her to have a white cell count of 0.9. Hemoglobin 8.9. Hematocrit 26.6. Platelets 47. He has chronic macrocytosis at 102.3. ANC is 2. Potassium is slightly low at 3.2. BUN is 15, creatinine 1.1. Random glucose 189. Lactic acid 1.3. Chest x-ray is without acute cardiopulmonary abnormality. Because of his fall a head CT and cervical spine CT was done. He has atrophy and chronic ischemic changes without acute hemorrhage or infarct of the brain. Cervical spine CT has multilevel degenerative disc disease and arthropathy resulting in moderate right foraminal stenosis at C3-4 but no acute fracture or malalignment. Emergency room physician is now asking us to place him in inpatient status for neutropenic fever and empiric treatment. History - Past Medical History Cardiovascular: reports: Hypertension, High cholesterol, Deep vein thrombosis (2004), Pulmonary embolism (2007) Respiratory: reports: Sleep apnea, CPAP use Neuro: reports: None Endocrine/Autoimmune: reports: Type 2 diabetes GI: reports: GERD (on chronic PPI), Diverticulitis (and enterocolitis April 2020) : reports: Benign prostate hypertrophy HEENT: reports: Chronic hearing loss Psych: reports: None Musculoskeletal: reports: Osteoarthritis (knee and shoulder pain) Derm: reports: Other (skin cancer May 2012) MRSA Hx?: No Other Past Medical History: CLL, MDS - Past Surgical History Ortho: reports: Rotator cuff repair (2011), Shoulder arthroplasty Cardiovascular: reports: Other (port placement) - Family & Social History Family History Comment/Other: Dad of complications of black lung as a [employer]. He was a smoker, drinker, had diabetes, high blood pressure, and heart disease. Mom is alive at 91. She has survived breast cancer and has diabetes. However it is a bad relationship and he is not in contact with her. 1 brother is healthy. His 2 children are healthy without high blood pressure, cancer, diabetes, heart attack, or stroke. Living arrangement: At home Living Situation: With spouse/s.o. 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 Retired in 2017. Started smoking at the age of 21 and quit smoking at the age of 24. Never had a problem with alcohol abuse or recreational substance abuse. to his second . His first marriage was less than 3 weeks. They live in their own home and are still independent. Daughter lives in [place] and comes over frequently to help him. - Substance History Use: Uses substance without health or social issues: NONE Abuse: Recurrent use of substance despite neg consequences: NONE Dependence: Experiences withdrawal or developed tolerances: NONE - POLST Patient has POLST: No POLST Status: Full Code Meds/Allgy - Home Medications Home Medications: Ambulatory Orders Medication Instructions Recorded Confirmed Fenofibrate [Lofibra] 160 mg PO DAILY 06/29/13 11/25/20 Metformin HCl [Fortamet] 500 - 1,000 mg PO BID 06/29/13 11/25/20 Simvastatin 20 mg PO DAILY 06/29/13 11/25/20 Telmisartan/Hydrochlorothiazid 1 tab PO DAILY 06/29/13 11/25/20 [Micardis Hct 80-25 mg Tablet] allopurinoL [Allopurinol] 300 mg PO DAILY 06/29/13 11/25/20 Apixaban [Eliquis] 10 mg PO BID 12/29/18 11/25/20 Glipizide 10 mg PO DAILY 02/29/20 11/25/20 Omeprazole 10 mg PO DAILY 05/17/20 11/25/20 Potassium Chloride 20 meq PO DAILY 05/17/20 11/25/20 Prochlorperazine Maleate 10 mg PO DAILY 05/17/20 11/25/20 carvediloL [Coreg] 3.125 mg PO BID 05/17/20 11/25/20 Acyclovir [Zovirax] 400 mg PO BID 06/06/20 11/25/20 Sulfamethox/Trimeth 800/160 1 tab PO BID 06/06/20 11/25/20 [Bactrim Ds] - Allergies Allergies/Adverse Reactions: Allergies Allergy/AdvReac Type Severity Reaction Status Date / Time adhesive tape Allergy Rash Verified 11/08/20 09:58 Review of Systems - Constitutional Constitutional: reports: Fatigue, Fever, Chills, Malaise, Weakness, Poor appetite, Diaphoresis, Night sweats - Eyes Eyes: reports: Vision loss (Chronic and ongoing due to presbyopia and history of cataracts). denies: Pain, Irritation, Amaurosis, Blurred vision, Dipolpia - Ears, Nose & Throat Ears, Nose & Throat: reports: Hearing loss, Hearing aids. denies: Ear pain, Tinnitus, Nasal pain, Nasal discharge, Nasal obstruction, Nasal congestion, Sore throat, Hoarseness, Dental pain - Cardiovascular Cariovascular: reports: Lightheadedness, Exertional dyspnea, Decr. exercise tolerance (In the last 2 to 3 days.). denies: Irregular heart rate, Palpitations, Chest pain, Edema - Respiratory Respiratory: reports: Cough (Mazin and chronic and worse over the last 2 to 3 days), Sputum production (Daily and clear, without change), Snoring, SOB at rest, SOB with exertion, Apnea. denies: Wheezing, Hemoptysis, Orthopnea - Gastrointestinal Gastrointestinal: reports: Diarrhea, Nausea, Reflux/heartburn, Poor appetite. denies: Abdominal pain, Abdominal distention, Constipation, Rectal bleeding, Black stools, Bloody stools, Coffee grounds emesis, Bloating - Genitourinary Genitourinary: reports: Frequency, Urgency, Nocturia. denies: Dysuria, Hematuria, Incontinence, Flank pain, Urethral discharge - Musculoskeletal Musculoskeletal: reports: Back pain, Joint pain (Especially his knees). denies: Muscle pain - Integumentary Integumentary: denies: Rash, Pruritis, Lesions, Dryness - Neurological Neurological: reports: General weakness, Dizziness. denies: Focal weakness, Headache, Memory problems, Pre-existing deficit, Abnormal gait - Psychiatric Psychiatric: denies: Depression, Anxiety, Suicidal, Delusions, Hallucinations - Endocrine Endocrine: denies: Polyuria, Polydypsia, Polyphagia - Hematologic/Lymphatic Hematologic/Lymphatic: reports: Anemia, Bruising, Blood clots, Lymphadenopathy, Bleeding tendencies. denies: Petechiae Exam - Vital Signs Reviewed Vital Signs: Yes Vital Signs: Vital Signs x48h Temp Pulse Resp BP Pulse Ox 11/25/20 20:16 37.7 C 11/25/20 19:18 91 17 139/78 H 95 11/25/20 18:30 100 24 102/87 H 96 11/25/20 18:04 38.7 C H 98 28 H 102/87 H 99 - Physical Exam General Appearance: positive: Alert (But very fatigued. Our review of systems and advance care planning conversation leaves him exhausted at the end of the talk), Mild distress (Slight shortness of breath that I can see but he denies as well as an occasional cough) Eyes Bilateral: positive: PERRL, EOMI ENT: positive: Pharynx nml Neck: positive: No JVD. negative: Stiff neck Respiratory: positive: No respiratory distress. negative: Wheezes, Rales, Rhonchi Cardiovascular: positive: Regular rate & rhythm. negative: Systolic murmur, G allop/S4, Friction rub Peripheral Pulses: positive: 1+ Abdomen: positive: Non-tender, No organomegaly, Nml bowel sounds, No distention Skin: positive: Dry, Pallor, Other (Skin is still hot to touch. Heat radiates off of him). negative: Diaphoresis Extremities: positive: Non-tender, Full ROM Neurologic/Psychiatric: positive: Oriented x3, CN's nml (2-12) (Except for the deafness and he is wearing hearing aids), Motor nml (But very slow moving, needs a standby assist and he is furniture surfing to maintain his balance. Daughter states this is new for him.), Weakness (Mild and generalized) Conclusion/Plan - Problem List (1) Neutropenic fever Conclusion/Plan: Standard combination is cefepime and vancomycin with the latter for those who are at higher risk. This gentleman has a port and without would put him at risk. Plan: Inpatient stay Close renal monitoring due to vancomycin Review blood cultures when available Continue to monitor for signs and symptoms of other infection versus occult pneumonia or diverticulitis (which she has had in the past) If blood cultures are positive for staph, would then have to consider echocardiogram and changing his port Our plan is shared with he and his daughter. I did type it up since he is hard of hearing so he could refer to it later. Resume his acyclovir twice daily. Resume Bactrim twice daily once I verify with pharmacy. (2) Pancytopenia Conclusion/Plan: Chronic and longstanding since his induction treatment for CLL. Has been on maintenance Neulasta or Aranesp for quite some time. Plan: Monitor daily Transfuse with irradiated red blood cells if hemoglobin less than 8 Transfuse for platelets less than 20,000 and febrile Aranesp 500 mg every 2 weeks. I will ask pharmacy to review when his last dose was to make sure he does not need it while he is here. (3) Myelodysplastic syndrome with refractory anemia without ringed sideroblasts without excess blasts Conclusion/Plan: Palliative ongoing treatment. That is in the form of medication. He has been offered palliative care consultation and has declined. Plan: Advance care planning conversation under separate documentation (4) Type 2 diabetes mellitus, controlled Conclusion/Plan: In the outpatient setting he is on sulfonylurea as well as Metformin. Those will be held due to risk of lactic acidosis and lingering effects of sulfonylurea. Plan: Glycosylated hemoglobin not needed in the morning. 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 Resume medications with parameters Qualifiers: Hypertension type: essential hypertension Qualified Code(s): I10 - Essential (primary) hypertension (6) Obstructive sleep apnea on CPAP Conclusion/Plan: Patient's home CPAP will be ordered (7) Hypokalemia Conclusion/Plan: po supplementation and recheck in am. (8) History of pulmonary embolus (PE) Conclusion/Plan: resume his usual anticoagulation and monitor his platelets. - Lab Results Lab results reviewed: Yes Fish Bones: 11/25/20 18:31 11/25/20 18:31 - Diagnostic Imaging Results Diagnostic Imaging Results: positive: Final report reviewed - EKG Results EKG Interpreted Independently: No Core Measures - Anticipated LOS I expect patient to be DC'd or transferred within 96 hours.: Yes - DVT/VTE - Prophylaxis VTE/DVT Device ordered at admit?: Yes
[2020-11-25] MEDS: ACETAMINOPHEN 325 MG TABLET PO PRN (20:32)
--- NOTE | 2020-11-25 20:56 | ADVANCE CARE PLANNING NOTE ---
Advance Care Planning - Planning Encounter Date: 11/25/20 Time: 22:10 Purpose: establish care goals and code status Parties in Attendance: daughter, hospitalist and patient Decisional Capacity of the Patient: alert, oriented, deaf but making his own decisions and lucid historian - Diagnosis for Encounter (1) Myelodysplastic syndrome with refractory anemia without ringed sideroblasts without excess blasts Summary: 70 year-old man who was diagnosed w CLL June 2013 and presented as leukocytosis and lymphadenopathy since January 2013. Bendamustine and Rituxan induction FCR completed 12/2013. Profound bone marrow suppression. Has been on prolonged colony-stimulating factor support since that time. Does have history of neutropenic fever in the past. Worsening adenopathy February 2016. Revlimid started September 2016. Subsequent fatigue, nausea, vomiting. Change to ibrutinib that month. That was given until February 2020 when a repeat bone marrow biopsy c hange the diagnosis to myelodysplastic syndrome with refractory anemia. Has been treated with irradiated blood for anemia. On B12 injections. Iron infusions. Steroids use. Palliative hypomethylating agent azacitridine started April 2020. Only did 1 cycle due to drug shortage. Change to decitab ine 05/2020 with 5th cycle 10/2020. second opinion [facility] April 2020 and no bone marrow transplant candidate at this time. Started on acyclovir and Bactrim for prophylaxis. Bone marrow biopsy done this week to see if he is a candidate to continue with cycle #6. 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 He retired in 2016. He is to his second and will be 50 years in the next few weeks. He was only 3 weeks to his first before the marriage was caput. He and his love traveling. They did cruises, trips to [place], etc. Even when he was diagnosed with CLL in 2012, he continued to be quite active. He definitely slowed down after [facility] and they have continue to do some traveling but Covid really has affected that. In spite of the CLL diagnosis and then myelodysplastic syndrome diagnosis, he feels like he has had only mild complaints. They consisted of fatigue, chronic mild daily cough, occasional fevers. Appetite for the most part has been good. He has occasional diarrhea. Occasional prostate problems. His main complaint has been knee pain. He was getting ready to do a knee replacement but then Covid hit and he had to delay that. While he definitely has his bad days and occasionally does not have any energy to do anything, he is still regarded as independent by he and his family. He still does housekeeping chores, laundry, feeds himself, dresses himself, pays the bills. His daughter describes him as "sharp as a tack". Things that require a lot of effort on his part he cannot do anymore. For instance, his daughter was mowing his lawn for him today. Throughout this time of illness, he has been a positive thinker. He wants to live a long time and states that he wants "everything done" including be resuscitated in the event of a cardiopulmonary arrest. He really has not thought about end-of-life issues. Even though he feels like he can acknowledge that he is gotten slower over the years, and does not feel as good as he used to, he looks forward to the future. He really has not made any plans for the possibility of his becoming ill enough that he will be weak enough to need care. He thinks of his current treatment for his myelodysplastic syndrome as a chronic ongoing issue. He acknowledges that this is a palliative treatment and that a cure is not anticipated. What he does not acknowledges that he will get worse from what he is today. Objective/Medical Story: Ever since he got his bone marrow biopsy he has not felt well. Very weak, mildly dyspneic, and started getting a fever to 102 and sometimes 103. He checks his pulse oximeter and at home he was 88% on room air. His weakness and fatigue finally made him so dizzy that he tripped and fell and could not regain his balance. He fell and hit his head on the ground. No loss of consciousness. Currently no blurred vision, focal deficit, dysphagia or dysarthria. He is chronically anticoagulated because of his history of DVT in 2004 and pulmonary embolism in 2007. Platelets are monitored frequently due to his pancytopenia and he is continued on anticoagulation. He was seen by Dr. Smith in the emergency room where temperature was 38.7, pulse 98, blood pressure 102/87. Respirations 28, 96% on room air. He is alert and oriented in no acute distress. Abrasion on the top of his scalp. Diminished right breath sounds at the base. But no tachypnea or respiratory distress. No leg edema but he does have chronic venous stasis changes. Evaluation showed her to have a white cell count of 0.9. Hemoglobin 8.9. Hematocrit 26.6. Platelets 47. He has chronic macrocytosis at 102.3. ANC is 2. Potassium is slightly low at 3.2. BUN is 15, creatinine 1.1. Random glucose 189. Lactic acid 1.3. Chest x-ray is without acute cardiopulmonary abnormality. Because of his fall a head CT and cervical spine CT was done. He has atrophy and chronic ischemic changes without acute hemorrhage or infarct of the brain. Cervical spine CT has multilevel degenerative disc disease and arthropathy resulting in moderate right foraminal stenosis at C3-4 but no acute fracture or malalignment. Emergency room physician is now asking us to place him in inpatient status for neutropenic fever and empiric treatment. Goals of Care: 1. To be treated for any ongoing medical condition whether it is acute or chronic. He is accepting of surgeries, blood transfusions, antibiotics, ICU vasopressors, etc. He wants everything done until "the end". 2. While he wants to live as long as possible, he does recognize that severe illness and disability may result in a intermediate placement. At this time he is willing to accept that but he says he is can have to think about that and talk to his family. 3. Full CODE STATUS. Plan: At this time, we are planning to get him through this acute episode of care for neutropenic fever and any underlying problems that may be accompanying this. I have explained to him that I have started the conversation about advance care planning and this is going to be an ongoing conversation between he, his children, and his . I have asked him to sit down and hope for the best but plan for eventuality and practicality. What are the finances for this? What is the manpower for this? And what does quality of life mean to him? Code Status: Attempt Resuscitation Time spent on advance care plannin minutes
[2020-11-25] MEDS ORDERED: carvediloL 3.125 MG TABLET PO SCH (21:00)
[2020-11-25] MEDS ORDERED: APIXABAN 5 MG TABLET PO SCH (21:00)
[2020-11-25 21:18] LABS: BILIRUBIN,URINE NEGATIVE (NEGATIVE); GLUCOSE, URINE (UA) NEGATIVE (NEGATIVE); KETONES,URINE (UA) NEGATIVE (NEGATIVE); LEUKOCYTE ESTERASE, URINE NEGATIVE (NEGATIVE); NITRITE,URINE NEGATIVE (NEGATIVE); OCCULT BLOOD,URINE SMALL (NEGATIVE); PROTEIN,URINE 30 mg/dL (NEGATIVE); UROBILINOGEN,URINE 0.2 (NORMAL) E.U./dL (NORMAL)
[2020-11-25 21:24] LABS: CLARITY,URINE CLEAR (CLEAR)
[2020-11-25 21:26] LABS: BACTERIA,URINE Few /HPF (None Seen); MUCUS,URINE Few Strands; RBC,URINE 0-5 /HPF (0-5); SQUAMOUS EPITHELIAL CELL,UR FEW Squamous (<= Few); WBC,URINE 0-3 /HPF (0-3)
[2020-11-25] MEDS: ACYCLOVIR 200 MG CAPSULE PO SCH (21:46)
[2020-11-25] MEDS: carvediloL 3.125 MG TABLET PO SCH (21:47)
[2020-11-25] MEDS: INSULIN ASPART 300 UNIT/3 ML PEN SUBQ SCH (21:47)
[2020-11-25] MEDS: INSULIN GLARGINE 300 UNIT/3 ML PEN SUBQ SCH (21:48)
[2020-11-25] MEDS: LACTATED RINGERS 1,000 ML IV SCH (22:08)
[2020-11-25] MEDS ORDERED: LIDOCAINE OINTMENT 5% 35.44 GM TUBE TOP SCH (23:00)
[2020-11-25] MEDS: LIDOCAINE OINTMENT 5% 35.44 GM TUBE TOP SCH (23:25)
[2020-11-26] MEDS: SODIUM CHLORIDE FLUSH 0.9% 10 ML SYRINGE IVP SCH ×3 (00:54→16:52)
[2020-11-26] MEDS: ACETAMINOPHEN 325 MG TABLET PO PRN ×4 (00:55→16:15)
[2020-11-26] MEDS: CEFEPIME 2 GM in SODIUM CHLORIDE 0.9% MINIBAG 100 ML IV SCH ×3 (04:50→19:47)
[2020-11-26 06:13] LABS: BASOPHILS % (AUTO) 1.2 %; EOSINOPHILS % (AUTO) 13.3 %; HCT - HEMATOCRIT 26.6 % (42.0-52.0); LYMPHOCYTES % (AUTO) 28.9 %; MEAN CORPUSCULAR HEMOGLOBIN 34.5 pg (27.0-31.0); MEAN CORPUSCULAR HGB CONC 33.8 g/dL (32.0-36.0); MEAN CORPUSCULAR VOLUME 101.9 fL (80.0-94.0); MONOCYTES % (AUTO) 10.8 %; PLT - PLATELET COUNT 43 10^3/uL (130-450); RED BLOOD COUNT 2.61 10^6/uL (4.70-6.10); RED CELL DISTRIBUTION WIDTH 16.4 % (12.0-15.0)
[2020-11-26 06:16] LABS: WHITE BLOOD COUNT 0.8 x10^3/uL (4.8-10.8)
[2020-11-26 06:17] LABS: ABNORMAL LYMPHS % (MANUAL) 0 %; BAND NEUTROPHILS % (MANUAL) 0 %
[2020-11-26 06:20] LABS: CALCIUM 8.3 mg/dL (8.5-10.3); CREATININE 1.2 mg/dL (0.6-1.2); POTASSIUM 3.6 mmol/L (3.5-5.0)
[2020-11-26 06:34] LABS: BASOPHILS % (MANUAL) 1 %; EOSINOPHILS # (MANUAL) 0.1 10^3/uL (0-0.7); LYMPHOCYTES # (MANUAL) 0.3 10^3/uL (1.5-3.5); LYMPHOCYTES % (MANUAL) 38 %; MONOCYTES # (MANUAL) 0.1 10^3/uL (0.0-1.0)
[2020-11-26 06:35] LABS: PLATELET ESTIMATE, MANUAL DECREASED (<130,000) (NORMAL); PLATELET MORPHOLOGY NORMAL APPEARANCE (NORMAL); RBC MORPHOLOGY (MULTIPLE) NORMAL APPEARANCE (NORMAL); WBC MORPHOLOGY (MULTIPLE) NORMAL APPEARANCE (NORMAL)
[2020-11-26 06:36] LABS: DIFFERENTIAL COMMENT MANUAL DIFFERENTIAL
[2020-11-26 06:37] LABS: NEUTROPHILS # (MANUAL) 0.3 10^3/uL (1.5-6.6)
[2020-11-26] MEDS ORDERED: VANCOMYCIN INJ 1.25 GM in SODIUM CHLORIDE 0.9% 250 ML IV SCH (08:00)
--- NOTE | 2020-11-26 08:01 | PROVIDER PROGRESS NOTE ---
Subjective - Prog Note Date Prog Note Date: 11/26/20 - Subjective Subjective: Continues to feel fatigued and complain of general weakness. He reports having a little diarrhea prior to admission but no bowel movement today. No abdominal pain. Current Medications - Current Medications Current Medications: Active Medications Acetaminophen (Acetaminophen 325 Mg Tablet) 650 mg PO Q4HR PRN PRN Reason: Pain 1 to 4 Last Admin: 11/25/20 20:32 Dose: 650 mg Documented by: Acetaminophen (Acetaminophen 325 Mg Tablet) 650 mg PO Q4HR PRN PRN Reason: Pain or Fever > 38C (100.4F) Last Admin: 11/26/20 05:50 Dose: 650 mg Documented by: Acyclovir (Acyclovir 200 Mg Capsule) 400 mg PO BID [facility] Last Admin: 11/25/20 21:46 Dose: 400 mg Documented by: Allopurinol (Allopurinol 100 Mg Tablet) 300 mg PO DAILY [facility] Carvedilol (Carvedilol 3.125 Mg Tablet) 3.125 mg PO BID [facility] Last Admin: 11/25/20 21:47 Dose: 3.125 mg Documented by: Hydrochlorothiazide (Hydrochlorothiazide 25 Mg Tablet) 25 mg PO DAILY [facility] Lactated Ringer's (Lr) 1,000 mls @ 100 mls/hr IV .Q10H [facility] Last Admin: 11/25/20 22:08 Dose: 100 mls/hr Documented by: Cefepime HCl 2 gm/ Sodium (Chloride) 100 mls @ 200 mls/hr IV Q8H [facility] Last Infusion: 11/26/20 05:20 Dose: Infused Documented by: Vancomycin HCl 1 gm/Vancomycin HCl 250 mg/ Sodium Chloride 250 mls @ 167 mls/hr IV Q12H [facility] Insulin Aspart (Insulin Aspart 300 Unit/3 Ml Pen) 1 - 5 unit SUBQ 0800,1200,1700,2100 [facility]; Protocol Last Admin: 11/25/20 21:47 Dose: 2 unit Documented by: Insulin Glargine (Insulin Glargine 300 Unit/3 Ml Pen) 10 unit SUBQ QPM [facility] Last Admin: 11/25/20 21:48 Dose: 10 unit Documented by: Lidocaine (Lidocaine Ointment 5% 35.44 Gm Tube) 1 applic TOP QID [facility] Last Admin: 11/25/20 23:25 Dose: Not Given Documented by: Losartan Potassium (Losartan 50 Mg Tablet) 100 mg PO DAILY [facility] Ondansetron HCl (Ondansetron Odt 4 Mg Tablet) 4 mg TL Q6HR PRN PRN Reason: Nausea / Vomiting Ondansetron HCl (Ondansetron 4 Mg/2 Ml Vial) 4 mg IVP Q6HR PRN PRN Reason: Nausea / Vomiting Oxycodone HCl (Oxycodone 5 Mg Tablet) 5 mg PO Q4HR PRN PRN Reason: Pain 5 to 7 Potassium Chloride (Potassium Chloride 20 Meq Tablet) 20 meq PO DAILYWM [facility] Sodium Chloride (Sodium Chloride Flush 0.9% 10 Ml Syringe) 10 ml IVP PRN PRN PRN Reason: NEEDED PER PROVIDER ORDERS Sodium Chloride (Sodium Chloride Flush 0.9% 10 Ml Syringe) 10 ml IVP 0100,0900,1700 [facility] Last Admin: 11/26/20 00:54 Dose: Not Given Documented by: Fenofibrate [Lofibra] 160 mg PO DAILY 06/29/13 Metformin HCl [Fortamet] 500 - 1,000 mg PO BID 06/29/13 Simvastatin 20 mg PO DAILY 06/29/13 Telmisartan/Hydrochlorothiazid [Micardis Hct 80-25 mg Tablet] 1 tab PO DAILY 06/29/13 allopurinoL [Allopurinol] 300 mg PO DAILY 06/29/13 Apixaban [Eliquis] 10 mg PO BID 12/29/18 Glipizide 10 mg PO DAILY 02/29/20 Omeprazole 10 mg PO DAILY 05/17/20 Potassium Chloride 20 meq PO DAILY 05/17/20 Prochlorperazine Maleate 10 mg PO DAILY 05/17/20 carvediloL [Coreg] 3.125 mg PO BID 05/17/20 Acyclovir [Zovirax] 400 mg PO BID 06/06/20 Sulfamethox/Trimeth 800/160 [Bactrim Ds] 1 tab PO BID 06/06/20 Objective - Vital Signs/Intake & Output Reviewed Vital Signs: Yes Vital Signs: Vital Signs x48h Temp Pulse Resp BP BP Pulse Ox 11/26/20 07:27 38.5 C H 95 20 142/69 H 2 L 11/26/20 07:02 39.2 C H 11/26/20 05:47 39.2 C H 11/26/20 04:58 37.0 C 93 19 122/87 H 96 11/26/20 00:45 38.2 C H Intake & Output: Intake & Output 11/23/20 11/24/20 11/25/20 11/26/20 23:59 23:59 23:59 23:59 Intake Total 600 600 Output Total 400 900 Balance 200 -300 - Objective General Appearance: positive: No acute distress, Alert Eyes Bilateral: positive: Normal inspection, Conjunctivae nml ENT: positive: ENT inspection nml, Other (CPAP mask in place.) Neck: positive: Nml inspection. negative: Stiff neck Respiratory: positive: No respiratory distress. negative: Wheezes, Rales Cardiovascular: positive: No murmur, Other (Port in place over left chest wall without any surrounding erythema, edema or tenderness.). negative: Tachycardia, Systolic murmur Abdomen: positive: Non-tender, Nml bowel sounds, No distention. negative: Tenderness, Guarding, Rebound Skin: positive: Warm, Dry, Other (No obvious erythema or evidence of rash. The site of the bone marrow biopsy is unremarkable.) Extremities: positive: No pedal edema Neurologic/Psychiatric: positive: Disoriented to time. negative: Disoriented to person, Disoriented to place - Lab Results Fish Bones: 11/26/20 05:55 11/26/20 05:55 Other Labs: Lab Results x24hrs 11/26/20 11/26/20 11/25/20 Range/Units 05:55 05:55 21:06 WBC 0.8 L* (4.8-10.8) x10^3/uL RBC 2.61 L (4.70-6.10) 10^6/uL Hgb 9.0 L (14.0-18.0) g/dL Hct 26.6 L (42.0-52.0) % MCV 101.9 H (80.0-94.0) fL MCH 34.5 H (27.0-31.0) pg MCHC 33.8 (32.0-36.0) g/dL RDW 16.4 H (12.0-15.0) % Plt Count 43 L (130-450) 10^3/uL Neut # (Auto) Not Reportable Lymph # (Auto) Not Reportable [place] # (Auto) Not Reportable Eos # (Auto) Not Reportable Baso # (Auto) Not Reportable Absolute Nucleated RBC Not Reportable Total Counted 100 Band Neuts % (Manual) 0 (0 - 10) % Abnorm Lymph % (Manual) 0 % Nucleated RBC % Not Reportable Neutrophils # (Manual) 0.3 L* (1.5-6.6) 10^3/uL Lymphocytes # (Manual) 0.3 L (1.5-3.5) 10^3/uL Monocytes # (Manual) 0.1 (0.0-1.0) 10^3/uL Eosinophils # (Manual) 0.1 (0-0.7) 10^3/uL Basophils # (Manual) 0.0 (0-0.1) 10^3/uL Differential Comment MANUAL DIFFERENTIAL WBC Morphology NORMAL APPEARANCE (NORMAL) Platelet Estimate DECREASED (<130,000) (NORMAL) Platelet Morphology NORMAL APPEARANCE (NORMAL) RBC Morph Micro Appear NORMAL APPEARANCE (NORMAL) Sodium 133 L (135-145) mmol/L Potassium 3.6 (3.5-5.0) mmol/L Chloride 99 L (101-111) mmol/L Carbon Dioxide 23 (21-32) mmol/L Anion Gap 11.0 (6-13) BUN 16 (6-20) mg/dL Creatinine 1.2 (0.6-1.2) mg/dL Estimated GFR (MDRD) 60 L (>89) Glucose 185 H (70-100) mg/dL Lactic Acid (0.5-2.2) mmol/L Calcium 8.3 L (8.5-10.3) mg/dL Total Bilirubin (0.2-1.0) mg/dL AST (10-42) IU/L ALT (10-60) IU/L Alkaline Phosphatase (42-121) IU/L Total Protein (6.7-8.2) g/dL Albumin (3.2-5.5) g/dL Globulin (2.1-4.2) g/dL Albumin/Globulin Ratio (1.0-2.2) Urine Color YELLOW Urine Clarity CLEAR (CLEAR) Urine pH 5.0 (5.0-7.5) PH Ur Specific [place] >=1.030 H (1.002-1.030) Urine Protein 30 H (NEGATIVE) mg/dL Urine Glucose (UA) NEGATIVE (NEGATIVE) mg/dL Urine Ketones NEGATIVE (NEGATIVE) mg/dL Urine Occult Blood SMALL H (NEGATIVE) Urine Nitrite NEGATIVE (NEGATIVE) Urine Bilirubin NEGATIVE (NEGATIVE) Urine Urobilinogen 0.2 (NORMAL) (NORMAL) E.U./dL Ur Leukocyte Esterase NEGATIVE (NEGATIVE) Urine RBC 0-5 (0-5) /HPF Urine WBC 0-3 (0-3) /HPF Ur Squamous Epith Cells FEW Squamous (<= Few) Urine Bacteria Few (None Seen) /HPF Urine Mucus Few Strands Urine Culture Comments NOT INDICATED Nasal Adenovirus (PCR) Nasal B. parapertussis DNA (PCR) Nasal Coronavir 229E PCR Nasal Coronavir HKU1 PCR Nasal Coronavir NL63 PCR Nasal Coronavir OC43 PCR Nasal Enterovir/Rhinovir PCR Nasal Influenza B PCR Nasal Influenza A PCR Nasal Parainfluen 1 PCR Nasal Parainfluen 2 PCR Nasal Parainfluen 3 PCR Nasal Parainfluen 4 PCR Nasal RSV (PCR) Nasal B.pertussis DNA PCR Nasal C.pneumoniae (PCR) Tin Human Metapneumo PCR Nasal M.pneumoniae (PCR) Nasal SARS-CoV-2 (PCR) 11/25/20 11/25/20 11/25/20 Range/Units 18:43 18:31 18:31 WBC (4.8-10.8) x10^3/uL RBC (4.70-6.10) 10^6/uL Hgb (14.0-18.0) g/dL Hct (42.0-52.0) % MCV (80.0-94.0) fL MCH (27.0-31.0) pg MCHC (32.0-36.0) g/dL RDW (12.0-15.0) % Plt Count (130-450) 10^3/uL Neut # (Auto) Lymph # (Auto) [place] # (Auto) Eos # (Auto) Baso # (Auto) Absolute Nucleated RBC Total Counted Band Neuts % (Manual) (0 - 10) % Abnorm Lymph % (Manual) % Nucleated RBC % Neutrophils # (Manual) (1.5-6.6) 10^3/uL Lymphocytes # (Manual) (1.5-3.5) 10^3/uL Monocytes # (Manual) (0.0-1.0) 10^3/uL Eosinophils # (Manual) (0-0.7) 10^3/uL Basophils # (Manual) (0-0.1) 10^3/uL Differential Comment WBC Morphology (NORMAL) Platelet Estimate (NORMAL) Platelet Morphology (NORMAL) RBC Morph Micro Appear (NORMAL) Sodium 131 L (135-145) mmol/L Potassium 3.2 L (3.5-5.0) mmol/L Chloride 100 L (101-111) mmol/L Carbon Dioxide 23 (21-32) mmol/L Anion Gap 8.0 (6-13) BUN 15 (6-20) mg/dL Creatinine 1.1 (0.6-1.2) mg/dL Estimated GFR (MDRD) 66 L (>89) Glucose 189 H (70-100) mg/dL Lactic Acid 1.3 (0.5-2.2) mmol/L Calcium 8.6 (8.5-10.3) mg/dL Total Bilirubin 1.2 H (0.2-1.0) mg/dL AST 19 (10-42) IU/L ALT 15 (10-60) IU/L Alkaline Phosphatase 27 L (42-121) IU/L Total Protein 6.3 L (6.7-8.2) g/dL Albumin 3.8 (3.2-5.5) g/dL Globulin 2.5 (2.1-4.2) g/dL Albumin/Globulin Ratio 1.5 (1.0-2.2) Urine Color Urine Clarity (CLEAR) Urine pH (5.0-7.5) PH Ur Specific [place] (1.002-1.030) Urine Protein (NEGATIVE) mg/dL Urine Glucose (UA) (NEGATIVE) mg/dL Urine Ketones (NEGATIVE) mg/dL Urine Occult Blood (NEGATIVE) Urine Nitrite (NEGATIVE) Urine Bilirubin (NEGATIVE) Urine Urobilinogen (NORMAL) E.U./dL Ur Leukocyte Esterase (NEGATIVE) Urine RBC (0-5) /HPF Urine WBC (0-3) /HPF Ur Squamous Epith Cells (<= Few) Urine Bacteria (None Seen) /HPF Urine Mucus Urine Culture Comments Nasal Adenovirus (PCR) NOT DETECTED Nasal B. parapertussis DNA (PCR) NOT DETECTED Nasal Coronavir 229E PCR NOT DETECTED Nasal Coronavir HKU1 PCR NOT DETECTED Nasal Coronavir NL63 PCR NOT DETECTED Nasal Coronavir OC43 PCR NOT DETECTED Nasal Enterovir/Rhinovir PCR NOT DETECTED Nasal Influenza B PCR NOT DETECTED Nasal Influenza A PCR NOT DETECTED Nasal Parainfluen 1 PCR NOT DETECTED Nasal Parainfluen 2 PCR NOT DETECTED Nasal Parainfluen 3 PCR NOT DETECTED Nasal Parainfluen 4 PCR NOT DETECTED Nasal RSV (PCR) NOT DETECTED Nasal B.pertussis DNA PCR NOT DETECTED Nasal C.pneumoniae (PCR) NOT DETECTED Tin Human Metapneumo PCR NOT DETECTED Nasal M.pneumoniae (PCR) NOT DETECTED Nasal SARS-CoV-2 (PCR) NOT DETECTED 11/25/20 Range/Units 18:31 WBC 0.9 L* (4.8-10.8) x10^3/uL RBC 2.60 L (4.70-6.10) 10^6/uL Hgb 8.9 L (14.0-18.0) g/dL Hct 26.6 L (42.0-52.0) % MCV 102.3 H (80.0-94.0) fL MCH 34.2 H (27.0-31.0) pg MCHC 33.5 (32.0-36.0) g/dL RDW 16.5 H (12.0-15.0) % Plt Count 47 L (130-450) 10^3/uL Neut # (Auto) Not Reportable Lymph # (Auto) Not Reportable [place] # (Auto) Not Reportable Eos # (Auto) Not Reportable Baso # (Auto) Not Reportable Absolute Nucleated RBC Not Reportable Total Counted 100 Band Neuts % (Manual) 2 (0 - 10) % Abnorm Lymph % (Manual) 0 % Nucleated RBC % Not Reportable Neutrophils # (Manual) 0.5 L* (1.5-6.6) 10^3/uL Lymphocytes # (Manual) 0.3 L (1.5-3.5) 10^3/uL Monocytes # (Manual) 0.1 (0.0-1.0) 10^3/uL Eosinophils # (Manual) 0.0 (0-0.7) 10^3/uL Basophils # (Manual) 0.0 (0-0.1) 10^3/uL Differential Comment MANUAL DIFFERENTIAL WBC Morphology NORMAL APPEARANCE (NORMAL) Platelet Estimate DECREASED (<130,000) (NORMAL) Platelet Morphology NORMAL APPEARANCE (NORMAL) RBC Morph Micro Appear NORMAL APPEARANCE (NORMAL) Sodium (135-145) mmol/L Potassium (3.5-5.0) mmol/L Chloride (101-111) mmol/L Carbon Dioxide (21-32) mmol/L Anion Gap (6-13) BUN (6-20) mg/dL Creatinine (0.6-1.2) mg/dL Estimated GFR (MDRD) (>89) Glucose (70-100) mg/dL Lactic Acid (0.5-2.2) mmol/L Calcium (8.5-10.3) mg/dL Total Bilirubin (0.2-1.0) mg/dL AST (10-42) IU/L ALT (10-60) IU/L Alkaline Phosphatase (42-121) IU/L Total Protein (6.7-8.2) g/dL Albumin (3.2-5.5) g/dL Globulin (2.1-4.2) g/dL Albumin/Globulin Ratio (1.0-2.2) Urine Color Urine Clarity (CLEAR) Urine pH (5.0-7.5) PH Ur Specific [place] (1.002-1.030) Urine Protein (NEGATIVE) mg/dL Urine Glucose (UA) (NEGATIVE) mg/dL Urine Ketones (NEGATIVE) mg/dL Urine Occult Blood (NEGATIVE) Urine Nitrite (NEGATIVE) Urine Bilirubin (NEGATIVE) Urine Urobilinogen (NORMAL) E.U./dL Ur Leukocyte Esterase (NEGATIVE) Urine RBC (0-5) /HPF Urine WBC (0-3) /HPF Ur Squamous Epith Cells (<= Few) Urine Bacteria (None Seen) /HPF Urine Mucus Urine Culture Comments Nasal Adenovirus (PCR) Nasal B. parapertussis DNA (PCR) Nasal Coronavir 229E PCR Nasal Coronavir HKU1 PCR Nasal Coronavir NL63 PCR Nasal Coronavir OC43 PCR Nasal Enterovir/Rhinovir PCR Nasal Influenza B PCR Nasal Influenza A PCR Nasal Parainfluen 1 PCR Nasal Parainfluen 2 PCR Nasal Parainfluen 3 PCR Nasal Parainfluen 4 PCR Nasal RSV (PCR) Nasal B.pertussis DNA PCR Nasal C.pneumoniae (PCR) Tin Human Metapneumo PCR Nasal M.pneumoniae (PCR) Nasal SARS-CoV-2 (PCR) ABX Reporting Has patient been on IV antibiotics over the past 48 hours?: Yes Assessment/Plan - Problem List (1) Neutropenic fever Impression: He remains neutropenic and continues to spike fevers. There has been no obvious source of infection. His chest x-ray was unremarkable. His urinalysis did reveal a few bacteria but no leukocyte esterase, nitrites or pyuria. He is on vancomycin and cefepime IV empirically. He is not on any neutrophil growth factors as the plan was to await the results of this bone marrow biopsy that was obtained this week. We will call hematology/oncology to see if these results are available and if a neutrophil growth factor would be appropriate to consider at this time. In the interim, we will continue with subpoena and vancomycin IV. Neutropenic precautions. Neutropenic diet. Continue to monitor for signs of infection. Blood cultures are pending. Check stool for C. difficile given the diarrhea at home. Will consider CT of the chest and abdomen pelvis if no improvement over next 24 hours. (2) Myelodysplasia (myelodysplastic syndrome) Impression: This is the cause of his pancytopenia. He has been on Aricept every 2 weeks as well as decitabine. He did have a bone marrow biopsy prior to the 6 cycle of decitabine and based off of these results, there was consideration for neutrophil growth factor. We will reach out to hematology/oncology today to review the results of the bone marrow biopsy if they are available. Continue outpatient follow-up with hematology/oncology on discharge. (3) Pancytopenia Impression: His hemoglobin is stable at around 9. His platelet count is decreased in the 40s. We will hold his Eliquis given the thrombocytopenia. History no evidence of bleeding but we will continue to monitor and transfuse for goal hemoglobin greater than 8 per hematology notes. (4) History of pulmonary embolus (PE) Impression: We will hold his home Eliquis given his thrombocytopenia with a decreasing platelet count. (5) Obstructive sleep apnea on CPAP Impression: Continue home CPAP. (6) Type 2 diabetes mellitus, controlled Impression: His last A1c was 7.2% and his blood glucose is currently well controlled. We will place him on Lantus 10 units in the evening and sliding scale. Carb controlled diet. Qualifiers: Diabetes mellitus [employer] insulin use: without [employer] use Diabetes mellitus complication status: without complication Qualified Code(s): E11.9 - Type 2 diabetes mellitus without complications (7) Hypertension Impression: Stable. Continue home antihypertensives with telmisartan/hydrochlorothiazide. Qualifiers: Hypertension type: essential hypertension Qualified Code(s): I10 - Essential (primary) hypertension
[2020-11-26] MEDS: POTASSIUM CHLORIDE 20 MEQ TABLET PO SCH (08:08)
[2020-11-26] MEDS: allopurinoL 100 MG TABLET PO SCH (08:08)
[2020-11-26] MEDS: hydroCHLOROthiazide 25 MG TABLET PO SCH (08:08)
[2020-11-26] MEDS: carvediloL 3.125 MG TABLET PO SCH ×2 (08:09→20:35)
[2020-11-26] MEDS: LOSARTAN 50 MG TABLET PO SCH (08:09)
[2020-11-26] MEDS: VANCOMYCIN INJ 1 GM, VANCOMYCIN INJ 250 MG in SODIUM CHLORIDE 0.9% 250 ML IV SCH ×2 (08:12→20:23)
[2020-11-26] MEDS: ACYCLOVIR 200 MG CAPSULE PO SCH ×2 (08:15→20:35)
[2020-11-26] MEDS: INSULIN ASPART 300 UNIT/3 ML PEN SUBQ SCH ×4 (08:16→20:34)
[2020-11-26] MEDS: LIDOCAINE OINTMENT 5% 35.44 GM TUBE TOP SCH ×4 (08:16→20:36)
[2020-11-26] MEDS ORDERED: LOSARTAN 50 MG TABLET PO SCH (09:00)
[2020-11-26] MEDS: LACTATED RINGERS 1,000 ML IV SCH ×2 (10:18→22:07)
--- NOTE | 2020-11-26 11:47 | PHARMACY PROGRESS NOTE ---
- Best Possible Medication History Admit Date and Time: 11/25/201954 Processed by: Nursing Medication History completed: Yes Patient Interview: Completed Secondary Source(s): Physician records, Pharmacy records, Insurance records As the person ultimately responsible for medication therapy, providers are able to order a medication from an existing home medication list in [facility] via the "Reconcile Routine" prior to Confirmation of that medication by instructional support assistant. Such practice is discouraged except when the physician, in their clinical judgment, deems that a medical need exists for a medication without regard to previous use.
[2020-11-26] MEDS: INSULIN GLARGINE 300 UNIT/3 ML PEN SUBQ SCH (20:34)
[2020-11-27] MEDS: ACETAMINOPHEN 325 MG TABLET PO PRN (00:54)
[2020-11-27] MEDS: SODIUM CHLORIDE FLUSH 0.9% 10 ML SYRINGE IVP SCH ×3 (01:20→16:29)
[2020-11-27] MEDS: CEFEPIME 2 GM in SODIUM CHLORIDE 0.9% MINIBAG 100 ML IV SCH ×3 (04:14→19:43)
[2020-11-27] MEDS: SODIUM CHLORIDE FLUSH 0.9% 10 ML SYRINGE IVP PRN ×2 (04:43→06:33)
[2020-11-27 05:22] LABS: HCT - HEMATOCRIT 22.3 % (42.0-52.0); HGB - HEMOGLOBIN 7.7 g/dL (14.0-18.0); LYMPHOCYTES % (AUTO) 27.6 %; MEAN CORPUSCULAR HEMOGLOBIN 34.2 pg (27.0-31.0); MEAN CORPUSCULAR HGB CONC 34.5 g/dL (32.0-36.0); MEAN CORPUSCULAR VOLUME 99.1 fL (80.0-94.0); MONOCYTES % (AUTO) 8.6 %; NEUTROPHILS % (AUTO) 58.6 %; PLT - PLATELET COUNT 41 10^3/uL (130-450); RED BLOOD COUNT 2.25 10^6/uL (4.70-6.10); RED CELL DISTRIBUTION WIDTH 16.1 % (12.0-15.0)
[2020-11-27 05:29] LABS: CALCIUM 7.7 mg/dL (8.5-10.3); CREATININE 1.1 mg/dL (0.6-1.2)
[2020-11-27 05:31] LABS: WHITE BLOOD COUNT 0.6 x10^3/uL (4.8-10.8)
[2020-11-27 05:32] LABS: ABNORMAL LYMPHS % (MANUAL) 0 %; BAND NEUTROPHILS % (MANUAL) 0 %; POTASSIUM 2.5 mmol/L (3.5-5.0)
[2020-11-27] MEDS ORDERED: POTASSIUM CHLOR 10 MEQ/100 ML 10 MEQ/100 ML BAG IV SCH (06:00)
[2020-11-27 06:06] LABS: LYMPHOCYTES # (MANUAL) 0.2 10^3/uL (1.5-3.5); LYMPHOCYTES % (MANUAL) 34 %
[2020-11-27 06:08] LABS: DIFFERENTIAL COMMENT MANUAL DIFFERENTIAL; PLATELET ESTIMATE, MANUAL DECREASED (<130,000) (NORMAL); PLATELET MORPHOLOGY NORMAL APPEARANCE (NORMAL); RBC MORPHOLOGY (MULTIPLE) NORMAL APPEARANCE (NORMAL); WBC MORPHOLOGY (MULTIPLE) NORMAL APPEARANCE (NORMAL)
[2020-11-27 06:09] LABS: NEUTROPHILS # (MANUAL) 0.4 10^3/uL (1.5-6.6)
[2020-11-27] MEDS ORDERED: POTASSIUM CHLORIDE 20 MEQ TABLET PO ONE ×2 (07:23→19:02)
--- NOTE | 2020-11-27 07:24 | PROVIDER PROGRESS NOTE ---
Subjective - Prog Note Date Prog Note Date: 11/27/20 - Subjective Subjective: He still reports feeling tired and complains of general weakness. Denies any chest pain, dyspnea. He does have a slight cough but states this has been present for over 6 months now. No abdominal pain and denies any further diarrhea. His daughter is at bedside and she agrees that he appears more com fortable and less fatigued today. Current Medications - Current Medications Current Medications: Active Medications Acetaminophen (Acetaminophen 325 Mg Tablet) 650 mg PO Q4HR PRN PRN Reason: Pain or Fever > 38C (100.4F) Last Admin: 11/27/20 00:54 Dose: 650 mg Documented by: Acyclovir (Acyclovir 200 Mg Capsule) 400 mg PO BID [facility] Last Admin: 11/26/20 20:35 Dose: 400 mg Documented by: Allopurinol (Allopurinol 100 Mg Tablet) 300 mg PO DAILY [facility] Last Admin: 11/26/20 08:08 Dose: 300 mg Documented by: Carvedilol (Carvedilol 3.125 Mg Tablet) 3.125 mg PO BID [facility] Last Admin: 11/26/20 20:35 Dose: 3.125 mg Documented by: Hydrochlorothiazide (Hydrochlorothiazide 25 Mg Tablet) 25 mg PO DAILY [facility] Last Admin: 11/26/20 08:08 Dose: 25 mg Documented by: Cefepime HCl 2 gm/ Sodium (Chloride) 100 mls @ 200 mls/hr IV Q8H [facility] Last Infusion: 11/27/20 04:44 Dose: Infused Documented by: Vancomycin HCl 1 gm/Vancomycin HCl 250 mg/ Sodium Chloride 250 mls @ 167 mls/hr IV Q12H [facility] Last Infusion: 11/26/20 22:06 Dose: Infused Documented by: Potassium Chloride (Potassium Chloride) 10 meq in 100 mls @ 100 mls/hr IV Q1H [facility] Stop: 11/27/20 10:59 Insulin Aspart (Insulin Aspart 300 Unit/3 Ml Pen) 1 - 5 unit SUBQ 0800,1200,1700,2100 [facility]; Protocol Last Admin: 11/26/20 20:34 Dose: 1 unit Documented by: Insulin Glargine (Insulin Glargine 300 Unit/3 Ml Pen) 10 unit SUBQ QPM [facility] Last Admin: 11/26/20 20:34 Dose: 10 unit Documented by: Lidocaine (Lidocaine Ointment 5% 35.44 Gm Tube) 1 applic TOP QID [facility] Last Admin: 11/26/20 20:36 Dose: 1 applic Documented by: Losartan Potassium (Losartan 50 Mg Tablet) 100 mg PO DAILY [facility] Last Admin: 11/26/20 08:09 Dose: 100 mg Documented by: Ondansetron HCl (Ondansetron Odt 4 Mg Tablet) 4 mg TL Q6HR PRN PRN Reason: Nausea / Vomiting Ondansetron HCl (Ondansetron 4 Mg/2 Ml Vial) 4 mg IVP Q6HR PRN PRN Reason: Nausea / Vomiting Oxycodone HCl (Oxycodone 5 Mg Tablet) 5 mg PO Q4HR PRN PRN Reason: Pain 5 to 7 Potassium Chloride (Potassium Chloride 20 Meq Tablet) 20 meq PO DAILYWM [facility] Last Admin: 11/26/20 08:08 Dose: 20 meq Documented by: Sodium Chloride (Sodium Chloride Flush 0.9% 10 Ml Syringe) 10 ml IVP PRN PRN PRN Reason: NEEDED PER PROVIDER ORDERS Last Admin: 11/27/20 06:33 Dose: 10 ml Documented by: Sodium Chloride (Sodium Chloride Flush 0.9% 10 Ml Syringe) 10 ml IVP 0100,0900,1700 [facility] Last Admin: 11/27/20 01:20 Dose: Not Given Documented by: Fenofibrate [Lofibra] 160 mg PO DAILY 06/29/13 Metformin HCl [Fortamet] 500 - 1,000 mg PO BID 06/29/13 Simvastatin 20 mg PO DAILY 06/29/13 Telmisartan/Hydrochlorothiazid [Micardis Hct 80-25 mg Tablet] 1 tab PO DAILY 06/29/13 allopurinoL [Allopurinol] 300 mg PO DAILY 06/29/13 Apixaban [Eliquis] 10 mg PO BID 12/29/18 Glipizide 10 mg PO DAILY 02/29/20 Omeprazole 20 mg PO DAILY 05/17/20 Potassium Chloride 20 meq PO DAILY 05/17/20 Prochlorperazine Maleate 10 mg PO DAILY 05/17/20 carvediloL [Coreg] 3.125 mg PO BID 05/17/20 Acyclovir [Zovirax] 400 mg PO BID 06/06/20 Sulfamethox/Trimeth 800/160 [Bactrim Ds] 1 tab PO BID 06/06/20 Objective - Vital Signs/Intake & Output Reviewed Vital Signs: Yes Vital Signs: Vital Signs x48h Temp Pulse Resp BP Pulse Ox 11/27/20 06:33 37.2 C 89 17 98 11/27/20 05:45 37.6 C 90 18 135/67 H 98 11/27/20 03:00 36.7 C 11/27/20 01:35 38.0 C H 20 11/27/20 00:25 39.3 C H 104 H 24 147/83 H 94 Intake & Output: Intake & Output 11/24/20 11/25/20 11/26/20 11/27/20 23:59 23:59 23:59 23:59 Intake Total 600 4350.000 600 Output Total 400 2150 800 Balance 200 2200.000 -200 - Objective General Appearance: positive: No acute distress, Alert, Other (Appears less fatigued today. Participating more in a conversation.) Eyes Bilateral: positive: Normal inspection, Conjunctivae nml ENT: positive: ENT inspection nml, Pharynx nml, No signs of dehydration. negative: Pharyngeal erythema, Oral lesions, Dry mucous membranes Neck: positive: Nml inspection. negative: Stiff neck Respiratory: positive: No respiratory distress. negative: Wheezes, Rales Cardiovascular: positive: Regular rate & rhythm, No murmur, Other (Port over the left chest wall is without surrounding erythema. No tenderness.). negative: Tachycardia, Systolic murmur Abdomen: positive: Non-tender, Nml bowel sounds, No distention. negative: Tenderness, Guarding, Rebound Skin: positive: Warm, Dry. negative: Skin rash Extremities: positive: No pedal edema Neurologic/Psychiatric: positive: Motor nml. negative: Disoriented to person, Disoriented to place, Disoriented to time - Lab Results Fish Bones: 11/27/20 04:40 11/27/20 04:40 Other Labs: Lab Results x24hrs 11/27/20 11/27/20 11/26/20 Range/Units 04:40 04:40 11:40 WBC 0.6 L* (4.8-10.8) x10^3/uL RBC 2.25 L (4.70-6.10) 10^6/uL Hgb 7.7 L (14.0-18.0) g/dL Hct 22.3 L (42.0-52.0) % MCV 99.1 H (80.0-94.0) fL MCH 34.2 H (27.0-31.0) pg MCHC 34.5 (32.0-36.0) g/dL RDW 16.1 H (12.0-15.0) % Plt Count 41 L (130-450) 10^3/uL Neut # (Auto) Not Reportable Lymph # (Auto) Not Reportable [place] # (Auto) Not Reportable Eos # (Auto) Not Reportable Baso # (Auto) Not Reportable Absolute Nucleated RBC Not Reportable Total Counted 100 Band Neuts % (Manual) 0 (0 - 10) % Abnorm Lymph % (Manual) 0 % Nucleated RBC % Not Reportable Neutrophils # (Manual) 0.4 L* (1.5-6.6) 10^3/uL Lymphocytes # (Manual) 0.2 L (1.5-3.5) 10^3/uL Monocytes # (Manual) 0.0 (0.0-1.0) 10^3/uL Eosinophils # (Manual) 0.0 (0-0.7) 10^3/uL Basophils # (Manual) 0.0 (0-0.1) 10^3/uL Differential Comment MANUAL DIFFERENTIAL WBC Morphology NORMAL APPEARANCE (NORMAL) Platelet Estimate DECREASED (<130,000) (NORMAL) Platelet Morphology NORMAL APPEARANCE (NORMAL) RBC Morph Micro Appear NORMAL APPEARANCE (NORMAL) Sodium 130 L (135-145) mmol/L Potassium 2.5 L* (3.5-5.0) mmol/L Chloride 96 L (101-111) mmol/L Carbon Dioxide 24 (21-32) mmol/L Anion Gap 10.0 (6-13) BUN 16 (6-20) mg/dL Creatinine 1.1 (0.6-1.2) mg/dL Estimated GFR (MDRD) 66 L (>89) Glucose 152 H (70-100) mg/dL Calcium 7.7 L (8.5-10.3) mg/dL Stl C. diff Tox B Gene NEGATIVE (NEGATIVE) ABX Reporting Has patient been on IV antibiotics over the past 48 hours?: Yes Assessment/Plan - Problem List (1) Neutropenic fever Impression: He was febrile overnight at midnight but since then, he has been a febrile. He does clinically appear improved as he is less lethargic and more alert. There has been no obvious source of infection. His urinalysis, chest x-ray were unremarkable. He has no obvious skin erythema to suggest an infection. The si te of his left chest wall port is without erythema. His blood cultures have been negative to date. He was having diarrhea which is improved and C. difficile is negative. At this time, we will keep him on vancomycin and cefepime IV with today being day 2. Given his clinical improvement, we will hold off on obtaining a CT of the chest and abdomen pelvis at this time but if he continues to be afebrile or has a decline in his condition, we will obtain further imaging. (2) Myelodysplasia (myelodysplastic syndrome) Impression: This is the cause of his pancytopenia. He has been on Aricept every 2 weeks with anemia and on Dacogen for treatment. He had a bone marrow biopsy obtained last week at [facility] in [place] and the results of these are pending. I did speak with oncology yesterday and likely will not be available till early this week. We will continue to hold off on granulocyte colony-stimulating factor given the patient is hemodynamically stable until the bone marrow biopsy results are back. (3) Pancytopenia Impression: His hemoglobin has decreased this morning to 7.7. His platelet count is also slightly decreased but stable in the low 40s. We have been holding the Eliquis given the thrombocytopenia. 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 We will recheck a hemoglobin at noon and if it remains less than 8, we will transfuse him 1 unit of packed red blood cell. At this time, there has been no evidence of bleeding. (4) History of pulmonary embolus (PE) Impression: We are holding his home Eliquis given the thrombocytopenia. (5) Obstructive sleep apnea on CPAP Impression: Continue home CPAP. (6) Type 2 diabetes mellitus, controlled Impression: His blood glucose has been well controlled. We will continue Lantus 10 units in the evening with sliding scale. Carb controlled diet. Qualifiers: Diabetes mellitus truck terminal manager insulin use: without truck terminal manager use Diabetes mellitus complication status: without complication Qualified Code(s): E11.9 - Type 2 diabetes mellitus without complications (7) Hypertension Impression: He was hypertensive yesterday afternoon with systolic in the 180s but since then his blood pressure has been stable in the 130s to 140 systolic. We will continue his current dose of antihypertensives. Qualifiers: Hypertension type: essential hypertension Qualified Code(s): I10 - Essential (primary) hypertension (8) Hypokalemia Impression: This is likely multifactorial secondary to the use of thiazide as well as GI losses. His potassium is decreased at 2.5 this morning. We will replace potassium intravenously and orally. We will check magnesium and repeat potassium this afternoon.
[2020-11-27 07:58] LABS: MAGNESIUM 1.5 mg/dL (1.7-2.8); PHOSPHORUS 3.1 mg/dL (2.5-4.6)
[2020-11-27] MEDS: POTASSIUM CHLORIDE 20 MEQ TABLET PO SCH (08:10)
[2020-11-27] MEDS: carvediloL 3.125 MG TABLET PO SCH ×2 (08:10→20:27)
[2020-11-27] MEDS: ACYCLOVIR 200 MG CAPSULE PO SCH ×2 (08:12→20:27)
[2020-11-27] MEDS: allopurinoL 100 MG TABLET PO SCH (08:12)
[2020-11-27] MEDS: LOSARTAN 50 MG TABLET PO SCH (08:13)
[2020-11-27] MEDS: hydroCHLOROthiazide 25 MG TABLET PO SCH (08:13)
[2020-11-27] MEDS: VANCOMYCIN INJ 1 GM, VANCOMYCIN INJ 250 MG in SODIUM CHLORIDE 0.9% 250 ML IV SCH ×2 (08:14→20:25)
[2020-11-27] MEDS: POTASSIUM CHLOR 10 MEQ/100 ML 10 MEQ/100 ML BAG IV SCH ×3 (08:16→10:44)
[2020-11-27] MEDS: INSULIN ASPART 300 UNIT/3 ML PEN SUBQ SCH ×4 (08:16→21:52)
[2020-11-27] MEDS: LIDOCAINE OINTMENT 5% 35.44 GM TUBE TOP SCH ×4 (08:25→21:51)
[2020-11-27] MEDS ORDERED: MAGNESIUM SULFATE 2 GRAM 2 GM/50 ML BAG IV ONE (11:50)
[2020-11-27] MEDS ORDERED: MAGNESIUM OXIDE 400 MG TABLET PO SCH (12:00)
--- NOTE | 2020-11-27 13:35 | PHARMACY PROGRESS NOTE ---
- Therapy Status Vancomycin regimen day #: 2 Therapy status: Awaiting steady state Basis for treatment: Empirical Treatment indication: NEUTROPENIC FEVER Trough goal: 15-20 Concurrent antibiotics: CEFEPIME - MICHAEL Risk Risk level for Acute Kidney Injury: Moderate Acute Kidney Injury risk factors: Goal trough >15, Chronic baseline hypertension, Diabetes - Monitoring and Recommendation Clinical response to treatment: I&O Previous 24 hours 11/25/20 11/26/20 11/27/20 23:59 23:59 23:59 Intake Total 600 4350.000 2850 Output Total 400 2150 1570 Balance 200 2200.000 1280 Lab Results 11/27/20 11/26/20 11/25/20 04:40 05:55 18:31 BUN 16 16 15 Creatinine 1.1 1.2 1.1 Estimated GFR (MDRD) 66 L 60 L 66 L Cultures 11/25/20 18:35 Blood - Left Hand Blood Culture - Preliminary NO GROWTH AFTER 1 DAY 11/25/20 18:31 Blood - Left Arm Blood Culture - Preliminary NO GROWTH AFTER 1 DAY Monitoring plan: Daily serum creatinine Next trough due prior to maintenance dose #: 5 Next trough due (date/time): 11/28 @0700 Areas for additional monitoring: IV to PO when appropriate, Therapy de- escalation based on culture results Pharmacy recommendation: Continue current regime
[2020-11-27 14:15] LABS: HCT - HEMATOCRIT 25.2 % (42.0-52.0); HGB - HEMOGLOBIN 8.6 g/dL (14.0-18.0)
[2020-11-27] MEDS: INSULIN GLARGINE 300 UNIT/3 ML PEN SUBQ SCH (21:53)
[2020-11-28] MEDS: CEFEPIME 2 GM in SODIUM CHLORIDE 0.9% MINIBAG 100 ML IV SCH ×3 (03:58→19:13)
[2020-11-28] MEDS: SODIUM CHLORIDE FLUSH 0.9% 10 ML SYRINGE IVP SCH ×3 (03:58→17:05)
[2020-11-28] MEDS: SODIUM CHLORIDE FLUSH 0.9% 10 ML SYRINGE IVP PRN ×2 (05:41→05:42)
[2020-11-28 05:53] LABS: BASOPHILS % (AUTO) 1.3 %; HCT - HEMATOCRIT 23.1 % (42.0-52.0); MEAN CORPUSCULAR HEMOGLOBIN 33.8 pg (27.0-31.0); MEAN CORPUSCULAR HGB CONC 34.6 g/dL (32.0-36.0); MEAN CORPUSCULAR VOLUME 97.5 fL (80.0-94.0); MONOCYTES % (AUTO) 9.3 %; NEUTROPHILS % (AUTO) 45.4 %; PLT - PLATELET COUNT 64 10^3/uL (130-450); RED BLOOD COUNT 2.37 10^6/uL (4.70-6.10); RED CELL DISTRIBUTION WIDTH 16.5 % (12.0-15.0)
[2020-11-28 05:54] LABS: WHITE BLOOD COUNT 0.8 x10^3/uL (4.8-10.8)
[2020-11-28 05:56] LABS: ABNORMAL LYMPHS % (MANUAL) 0 %; BAND NEUTROPHILS % (MANUAL) 0 %
[2020-11-28 05:59] LABS: CREATININE 1.1 mg/dL (0.6-1.2)
[2020-11-28 06:16] LABS: BASOPHILS % (MANUAL) 2 %; LYMPHOCYTES # (MANUAL) 0.3 10^3/uL (1.5-3.5); LYMPHOCYTES % (MANUAL) 34 %; NEUTROPHILS # (MANUAL) 0.5 10^3/uL (1.5-6.6)
[2020-11-28 06:18] LABS: DIFFERENTIAL COMMENT MANUAL DIFFERENTIAL; PLATELET ESTIMATE, MANUAL DECREASED (<130,000) (NORMAL); PLATELET MORPHOLOGY NORMAL APPEARANCE (NORMAL); RBC MORPHOLOGY (MULTIPLE) 2+ ANISOCYTOSIS (NORMAL); WBC MORPHOLOGY (MULTIPLE) NORMAL APPEARANCE (NORMAL)
[2020-11-28] MEDS ORDERED: POTASSIUM CHLORIDE 20 MEQ TABLET PO ONE (07:16)
--- NOTE | 2020-11-28 07:24 | PROVIDER PROGRESS NOTE ---
Subjective - Prog Note Date Prog Note Date: 11/28/20 - Subjective Subjective: He reports feeling a little dizzy today but feels less fatigued and has more energy. He feels his overall strength is improving. Denies any chest pain, dyspnea, abdominal pain, diarrhea. Reports no neck pain. Has had an increase in his appetite. Current Medications - Current Medications Current Medications: Active Medications Acetaminophen (Acetaminophen 325 Mg Tablet) 650 mg PO Q4HR PRN PRN Reason: Pain or Fever > 38C (100.4F) Last Admin: 11/27/20 00:54 Dose: 650 mg Documented by: Acyclovir (Acyclovir 200 Mg Capsule) 400 mg PO BID [facility] Last Admin: 11/27/20 20:27 Dose: 400 mg Documented by: Allopurinol (Allopurinol 100 Mg Tablet) 300 mg PO DAILY [facility] Last Admin: 11/27/20 08:12 Dose: 300 mg Documented by: Carvedilol (Carvedilol 3.125 Mg Tablet) 3.125 mg PO BID [facility] Last Admin: 11/27/20 20:27 Dose: 3.125 mg Documented by: Heparin Sodium (Beef Lung) (Heparin Flush 50 Units/5 Ml Syringe) 30 - 50 unit IVP PRN PRN PRN Reason: Port Protocol (<24 hours) Last Admin: 11/28/20 05:41 Dose: 50 unit Documented by: Hydrochlorothiazide (Hydrochlorothiazide 25 Mg Tablet) 25 mg PO DAILY [facility] Last Admin: 11/27/20 08:13 Dose: 25 mg Documented by: Cefepime HCl 2 gm/ Sodium (Chloride) 100 mls @ 200 mls/hr IV Q8H [facility] Last Infusion: 11/28/20 04:28 Dose: Infused Documented by: Vancomycin HCl 1 gm/Vancomycin HCl 250 mg/ Sodium Chloride 250 mls @ 167 mls/hr IV Q12H [facility] Last Infusion: 11/27/20 22:06 Dose: Infused Documented by: Sodium Chloride (Normal Saline 0.9%) 500 mls @ 20 mls/hr IV Q24H PRN PRN Reason: TKO RATE Potassium Chloride (Potassium Chloride) 10 meq in 100 mls @ 100 mls/hr IV Q1H [facility] Stop: 11/28/20 11:59 Insulin Aspart (Insulin Aspart 300 Unit/3 Ml Pen) 1 - 5 unit SUBQ 0800,1200,1700,2100 [facility]; Protocol Last Admin: 11/27/20 21:52 Dose: 1 unit Documented by: Insulin Glargine (Insulin Glargine 300 Unit/3 Ml Pen) 10 unit SUBQ QPM [facility] Last Admin: 11/27/20 21:53 Dose: 10 unit Documented by: Lidocaine (Lidocaine Ointment 5% 35.44 Gm Tube) 1 applic TOP QID [facility] Last Admin: 11/27/20 21:51 Dose: Not Given Documented by: Losartan Potassium (Losartan 50 Mg Tablet) 100 mg PO DAILY [facility] Last Admin: 11/27/20 08:13 Dose: 100 mg Documented by: Ondansetron HCl (Ondansetron Odt 4 Mg Tablet) 4 mg TL Q6HR PRN PRN Reason: Nausea / Vomiting Ondansetron HCl (Ondansetron 4 Mg/2 Ml Vial) 4 mg IVP Q6HR PRN PRN Reason: Nausea / Vomiting Oxycodone HCl (Oxycodone 5 Mg Tablet) 5 mg PO Q4HR PRN PRN Reason: Pain 5 to 7 Potassium Chloride (Potassium Chloride 20 Meq Tablet) 20 meq PO DAILYWM [facility] Last Admin: 11/27/20 08:10 Dose: 20 meq Documented by: Sodium Chloride (Sodium Chloride Flush 0.9% 10 Ml Syringe) 10 ml IVP PRN PRN PRN Reason: NEEDED PER PROVIDER ORDERS Last Admin: 11/28/20 05:42 Dose: 10 ml Documented by: Sodium Chloride (Sodium Chloride Flush 0.9% 10 Ml Syringe) 10 ml IVP 0100,0900,1700 [facility] Last Admin: 11/28/20 03:58 Dose: Not Given Documented by: Fenofibrate [Lofibra] 160 mg PO DAILY 06/29/13 Metformin HCl [Fortamet] 500 - 1,000 mg PO BID 06/29/13 Simvastatin 20 mg PO DAILY 06/29/13 Telmisartan/Hydrochlorothiazid [Micardis Hct 80-25 mg Tablet] 1 tab PO DAILY 06/29/13 allopurinoL [Allopurinol] 300 mg PO DAILY 06/29/13 Apixaban [Eliquis] 10 mg PO BID 12/29/18 Glipizide 10 mg PO DAILY 02/29/20 Omeprazole 20 mg PO DAILY 05/17/20 Potassium Chloride 20 meq PO DAILY 05/17/20 Prochlorperazine Maleate 10 mg PO DAILY 05/17/20 carvediloL [Coreg] 3.125 mg PO BID 05/17/20 Acyclovir [Zovirax] 400 mg PO BID 06/06/20 Sulfamethox/Trimeth 800/160 [Bactrim Ds] 1 tab PO BID 06/06/20 Objective - Vital Signs/Intake & Output Reviewed Vital Signs: Yes Vital Signs: Vital Signs x48h Temp Pulse Resp BP Pulse Ox 11/28/20 05:00 37.4 C 92 19 150/67 H 94 11/28/20 00:57 37.6 C 79 18 146/73 H 93 Intake & Output: Intake & Output 11/25/20 11/26/20 11/27/20 11/28/20 23:59 23:59 23:59 23:59 Intake Total 600 4350.000 3890 500 Output Total 400 2150 2895 600 Balance 200 2200.000 995 -100 - Objective General Appearance: positive: No acute distress, Alert Eyes Bilateral: positive: Normal inspection, Conjunctivae nml ENT: positive: ENT inspection nml Neck: positive: Nml inspection Respiratory: positive: No respiratory distress. negative: Wheezes, Rales Cardiovascular: positive: Regular rate & rhythm, No murmur. negative: Tachycardia Abdomen: positive: Non-tender, No distention. negative: Tenderness, Guarding, Rebound Skin: positive: No rash, Warm, Dry Extremities: positive: No pedal edema Neurologic/Psychiatric: positive: Motor nml. negative: Disoriented to person, Disoriented to place, Disoriented to time - Lab Results Fish Bones: 11/28/20 05:32 11/28/20 05:32 Other Labs: Lab Results x24hrs 11/28/20 11/28/20 11/27/20 Range/Units 05:32 05:32 14:06 WBC 0.8 L* (4.8-10.8) x10^3/uL RBC 2.37 L (4.70-6.10) 10^6/uL Hgb 8.0 L 8.6 L (14.0-18.0) g/dL Hct 23.1 L 25.2 L (42.0-52.0) % MCV 97.5 H (80.0-94.0) fL MCH 33.8 H (27.0-31.0) pg MCHC 34.6 (32.0-36.0) g/dL RDW 16.5 H (12.0-15.0) % Plt Count 64 L (130-450) 10^3/uL MPV TNP Neut # (Auto) Not Reportable Lymph # (Auto) Not Reportable [place] # (Auto) Not Reportable Eos # (Auto) Not Reportable Baso # (Auto) Not Reportable Absolute Nucleated RBC Not Reportable Total Counted 100 Band Neuts % (Manual) 0 (0 - 10) % Abnorm Lymph % (Manual) 0 % Nucleated RBC % Not Reportable Neutrophils # (Manual) 0.5 L* (1.5-6.6) 10^3/uL Lymphocytes # (Manual) 0.3 L (1.5-3.5) 10^3/uL Monocytes # (Manual) 0.0 (0.0-1.0) 10^3/uL Eosinophils # (Manual) 0.0 (0-0.7) 10^3/uL Basophils # (Manual) 0.0 (0-0.1) 10^3/uL Differential Comment MANUAL DIFFERENTIAL WBC Morphology NORMAL APPEARANCE (NORMAL) Platelet Estimate DECREASED (<130,000) (NORMAL) Platelet Morphology NORMAL APPEARANCE (NORMAL) RBC Morph Micro Appear 2+ ANISOCYTOSIS (NORMAL) Sodium 130 L (135-145) mmol/L Potassium 3.0 L (3.5-5.0) mmol/L Chloride 96 L (101-111) mmol/L Carbon Dioxide 25 (21-32) mmol/L Anion Gap 9.0 (6-13) BUN 18 (6-20) mg/dL Creatinine 1.1 (0.6-1.2) mg/dL Estimated GFR (MDRD) 66 L (>89) Glucose 204 H (70-100) mg/dL Calcium 8.0 L (8.5-10.3) mg/dL Phosphorus (2.5-4.6) mg/dL Magnesium (1.7-2.8) mg/dL Blood Type Antibody Screen 11/27/20 11/27/20 11/27/20 Range/Units 14:06 11:57 04:40 WBC (4.8-10.8) x10^3/uL RBC (4.70-6.10) 10^6/uL Hgb (14.0-18.0) g/dL Hct (42.0-52.0) % MCV (80.0-94.0) fL MCH (27.0-31.0) pg MCHC (32.0-36.0) g/dL RDW (12.0-15.0) % Plt Count (130-450) 10^3/uL MPV Neut # (Auto) Lymph # (Auto) [place] # (Auto) Eos # (Auto) Baso # (Auto) Absolute Nucleated RBC Total Counted Band Neuts % (Manual) (0 - 10) % Abnorm Lymph % (Manual) % Nucleated RBC % Neutrophils # (Manual) (1.5-6.6) 10^3/uL Lymphocytes # (Manual) (1.5-3.5) 10^3/uL Monocytes # (Manual) (0.0-1.0) 10^3/uL Eosinophils # (Manual) (0-0.7) 10^3/uL Basophils # (Manual) (0-0.1) 10^3/uL Differential Comment WBC Morphology (NORMAL) Platelet Estimate (NORMAL) Platelet Morphology (NORMAL) RBC Morph Micro Appear (NORMAL) Sodium (135-145) mmol/L Potassium 3.4 L (3.5-5.0) mmol/L Chloride (101-111) mmol/L Carbon Dioxide (21-32) mmol/L Anion Gap (6-13) BUN (6-20) mg/dL Creatinine (0.6-1.2) mg/dL Estimated GFR (MDRD) (>89) Glucose (70-100) mg/dL Calcium (8.5-10.3) mg/dL Phosphorus 3.1 (2.5-4.6) mg/dL Magnesium 1.5 L (1.7-2.8) mg/dL Blood Type O NEGATIVE Antibody Screen NEGATIVE ABX Reporting Has patient been on IV antibiotics over the past 48 hours?: Yes Assessment/Plan - Problem List (1) Neutropenic fever Impression: He had one low-grade fever yesterday afternoon with a temperature of 38.0 C. Since then, he has been afebrile and clinically appears to be improving as he has more energy and less fatigue. Once again there has been no obvious source of infection. He remains on vancomycin and cefepime IV. We have not administered Neupogen given we are awaiting the bone marrow biopsy results. We did consider obtaining a CT of the chest and abdomen pelvis but given his clinical improvement, we have held off on this. We will continue vancomycin and cefepime IV until he is afebrile for at least 24 hours. If he spikes another fever today even if it is low-grade, will obtain further imaging of the chest as well as abdomen and pelvis. Continue supportive measures with neutropenic contact precautions and neutropenic diet. (2) Myelodysplasia (myelodysplastic syndrome) Impression: This is the cause of his pancytopenia. He has been receiving treatment with Dacogen and also receiving Aricept for the anemia. I did speak with his oncologist today to see if the former biopsy results are available from the last week. Dr. Ross will update if he gets the results of these but he believes he will not be available until tomorrow at the earliest. We will continue to hold off on Neupogen until these results are available. (3) Pancytopenia Impression: His hemoglobin had decreased to 7.7 but recheck in the afternoon had improved to 8.6 without transfusion. This morning it is 8.00. We will hold off on transfusion at this time but will continue to monitor his hemoglobin closely and transfuse for goal hemoglobin greater than 8 as his oncologist preferred on an outpatient basis. His platelet count is improving today and is stable in the 60s. We will continue to hold his Eliquis for the time being but will likely resume it tomorrow. (4) History of pulmonary embolus (PE) Impression: Platelet count is improved today to the 60s. We will continue to hold his Eliquis today but will look to resume it tomorrow at 5 mg twice daily. (5) Obstructive sleep apnea on CPAP Impression: Continue his home CPAP. (6) Type 2 diabetes mellitus, controlled Impression: His blood glucose has been elevated at around 180-200 over the past 24 hours. We will increase his evening dose of Lantus and continue sliding scale. Carb controlled diet. Qualifiers: Diabetes mellitus penitentiary insulin use: without penitentiary use Diabetes mellitus complication status: without complication Qualified Code(s): E11.9 - Type 2 diabetes mellitus without complications (7) Hypertension Impression: He has been hypertensive with systolic in the 130s and some readings as high as the 160s. We have continued his home medications including angiotensin receptor katelyn, carvedilol, hydrochlorothiazide. Given his blood pressure is elevated, we will increase his carvedilol to 6.25 mg twice daily. Qualifiers: Hypertension type: essential hypertension Qualified Code(s): I10 - Essential (primary) hypertension (8) Hypokalemia Impression: This is improved today but still decreased at 3.0. He is already on daily potassium supplementation which we will continue but we will also administer an extra 20 mEq potassium p.o. and 40 mEq IV.
[2020-11-28 07:46] LABS: ALBUMIN 2.9 g/dL (3.2-5.5); ALKALINE PHOSPHATASE 24 IU/L (42-121); ALT ALANINE AMINOTRANSFERASE 30 IU/L (10-60); AST ASPARTATE AMINOTRANSFERASE 37 IU/L (10-42); BILIRUBIN,DIRECT 0.2 mg/dL (0.1-0.5); BILIRUBIN,TOTAL 1.1 mg/dL (0.2-1.0); MAGNESIUM 1.8 mg/dL (1.7-2.8); PHOSPHORUS 1.5 mg/dL (2.5-4.6); TOTAL PROTEIN 5.7 g/dL (6.7-8.2)
[2020-11-28] MEDS ORDERED: SODIUM CHLORIDE 0.9% 500 ML IV ONE (08:04)
[2020-11-28] MEDS: VANCOMYCIN INJ 1 GM, VANCOMYCIN INJ 250 MG in SODIUM CHLORIDE 0.9% 250 ML IV SCH ×2 (08:07→19:50)
[2020-11-28] MEDS: POTASSIUM CHLOR 10 MEQ/100 ML 10 MEQ/100 ML BAG IV SCH ×4 (08:10→11:27)
[2020-11-28] MEDS: POTASSIUM CHLORIDE 20 MEQ TABLET PO SCH (08:16)
[2020-11-28] MEDS: allopurinoL 100 MG TABLET PO SCH (08:17)
[2020-11-28] MEDS: ACETAMINOPHEN 325 MG TABLET PO PRN ×3 (08:17→23:53)
[2020-11-28] MEDS: ACYCLOVIR 200 MG CAPSULE PO SCH ×2 (08:18→19:57)
[2020-11-28] MEDS: hydroCHLOROthiazide 25 MG TABLET PO SCH (08:20)
[2020-11-28] MEDS: carvediloL 3.125 MG TABLET PO SCH ×3 (08:21→19:58)
[2020-11-28] MEDS: LOSARTAN 50 MG TABLET PO SCH (08:22)
[2020-11-28] MEDS: LIDOCAINE OINTMENT 5% 35.44 GM TUBE TOP SCH ×4 (08:24→21:29)
[2020-11-28] MEDS: INSULIN ASPART 300 UNIT/3 ML PEN SUBQ SCH ×4 (08:31→21:28)
[2020-11-28] MEDS: SODIUM CHLORIDE 0.9% 500 ML IV PRN (10:24)
--- NOTE | 2020-11-28 10:50 | PHARMACY PROGRESS NOTE ---
- Therapy Status Vancomycin regimen day #: 4 Therapy status: Trough subtherapeutic (Obtained trough of 14 this morning. Will continue current dosing with the expectation that trough levels will increase slightly with time.) Basis for treatment: Empirical Trough goal: 15-20 - MICHAEL Risk Risk level for Acute Kidney Injury: Moderate Acute Kidney Injury risk factors: Goal trough >15, Chronic baseline hypertensio n, Diabetes - Monitoring and Recommendation Clinical response to treatment: I&O Previous 24 hours 11/26/20 11/27/20 11/28/20 23:59 23:59 23:59 Intake Total 4350.000 3890 1190 Output Total 2150 2895 600 Balance 2200.000 995 590 Lab Results 11/28/20 11/27/20 11/26/20 05:32 04:40 05:55 BUN 18 16 16 Creatinine 1.1 1.1 1.2 Estimated GFR (MDRD) 66 L 66 L 60 L 11/25/20 18:31 BUN 15 Creatinine 1.1 Estimated GFR (MDRD) 66 L Vancomycin Monitoring 11/28/20 07:20 Vancomycin Trough 14.0 Cultures 11/25/20 18:35 Blood - Left Hand Blood Culture - Preliminary NO GROWTH AFTER 2 DAYS 11/25/20 18:31 Blood - Left Arm Blood Culture - Preliminary NO GROWTH AFTER 2 DAYS Monitoring plan: Daily serum creatinine Areas for additional monitoring: IV to PO when appropriate, Therapy de- escalation based on culture results Pharmacy recommendation: Continue current regime
[2020-11-28] MEDS ORDERED: INSULIN GLARGINE 300 UNIT/3 ML PEN SUBQ SCH (21:00)
[2020-11-29] MEDS: ACETAMINOPHEN 325 MG TABLET PO PRN ×3 (03:52→21:32)
[2020-11-29] MEDS: CEFEPIME 2 GM in SODIUM CHLORIDE 0.9% MINIBAG 100 ML IV SCH ×3 (03:59→20:22)
[2020-11-29] MEDS: SODIUM CHLORIDE FLUSH 0.9% 10 ML SYRINGE IVP SCH ×3 (04:04→16:47)
[2020-11-29] MEDS: SODIUM CHLORIDE FLUSH 0.9% 10 ML SYRINGE IVP PRN ×2 (05:46→05:47)
[2020-11-29 06:43] LABS: MAGNESIUM 1.8 mg/dL (1.7-2.8); PHOSPHORUS 1.5 mg/dL (2.5-4.6)
[2020-11-29 07:25] LABS: BASOPHILS % (AUTO) 2.7 %; EOSINOPHILS % (AUTO) 1.3 %; HCT - HEMATOCRIT 21.8 % (42.0-52.0); HGB - HEMOGLOBIN 7.6 g/dL (14.0-18.0); LYMPHOCYTES % (AUTO) 30.7 %; MEAN CORPUSCULAR HEMOGLOBIN 34.2 pg (27.0-31.0); MEAN CORPUSCULAR HGB CONC 34.9 g/dL (32.0-36.0); MEAN CORPUSCULAR VOLUME 98.2 fL (80.0-94.0); NEUTROPHILS % (AUTO) 57.3 %; PLT - PLATELET COUNT 100 10^3/uL (130-450); RED BLOOD COUNT 2.22 10^6/uL (4.70-6.10); RED CELL DISTRIBUTION WIDTH 16.8 % (12.0-15.0)
[2020-11-29 07:31] LABS: WHITE BLOOD COUNT 0.8 x10^3/uL (4.8-10.8)
[2020-11-29 07:32] LABS: ABNORMAL LYMPHS % (MANUAL) 0 %; BAND NEUTROPHILS % (MANUAL) 0 %
[2020-11-29 07:34] LABS: CALCIUM 7.9 mg/dL (8.5-10.3); CREATININE 1.2 mg/dL (0.6-1.2); POTASSIUM 3.1 mmol/L (3.5-5.0)
[2020-11-29 07:49] LABS: BASOPHILS # (MANUAL) 0.1 10^3/uL (0-0.1); BASOPHILS % (MANUAL) 8 %; DIFFERENTIAL COMMENT MANUAL DIFFERENTIAL; LYMPHOCYTES # (MANUAL) 0.2 10^3/uL (1.5-3.5); LYMPHOCYTES % (MANUAL) 28 %; NEUTROPHILS # (MANUAL) 0.4 10^3/uL (1.5-6.6); PLATELET ESTIMATE, MANUAL DECREASED (<130,000) (NORMAL); PLATELET MORPHOLOGY NORMAL APPEARANCE (NORMAL); PROMYELOCYTES % (MANUAL) 1 %; RBC MORPHOLOGY (MULTIPLE) NORMAL APPEARANCE (NORMAL); WBC MORPHOLOGY (MULTIPLE) NORMAL APPEARANCE (NORMAL)
[2020-11-29] MEDS: INSULIN ASPART 300 UNIT/3 ML PEN SUBQ SCH ×7 (08:13→21:25)
[2020-11-29] MEDS: allopurinoL 100 MG TABLET PO SCH (08:15)
[2020-11-29] MEDS: ACYCLOVIR 200 MG CAPSULE PO SCH ×2 (08:18→21:23)
[2020-11-29] MEDS: carvediloL 3.125 MG TABLET PO SCH ×2 (08:18→21:26)
[2020-11-29] MEDS: LOSARTAN 50 MG TABLET PO SCH (08:18)
[2020-11-29] MEDS: POTASSIUM CHLORIDE 20 MEQ TABLET PO SCH (08:19)
[2020-11-29] MEDS: hydroCHLOROthiazide 25 MG TABLET PO SCH (08:19)
[2020-11-29] MEDS: LIDOCAINE OINTMENT 5% 35.44 GM TUBE TOP SCH ×4 (08:19→21:24)
[2020-11-29] MEDS: VANCOMYCIN INJ 1 GM, VANCOMYCIN INJ 250 MG in SODIUM CHLORIDE 0.9% 250 ML IV SCH ×2 (08:21→21:20)
--- NOTE | 2020-11-29 09:28 | PROVIDER PROGRESS NOTE ---
Assessment/Plan - Problem List (1) Neutropenic fever Assessment/Plan: He had one low-grade fever yesterday afternoon with a temperature of 38.0 C. Since then, he has been afebrile and clinically appears to be improving as he has more energy and less fatigue. Once again there has been no obvious source o f infection. He remains on vancomycin and cefepime IV. We have not administered Neupogen given we are awaiting the bone marrow biopsy results. We did consider obtaining a CT of the chest and abdomen pelvis but given his clinical improvement, we have held off on this. We will continue vancomycin and cefepime IV until he is afebrile for at least 24 hours. If he spikes another fever today even if it is low-grade, will obtain further imaging of the chest as well as abdomen and pelvis. Continue supportive measures with neutropenic contact precautions and neutropenic diet. Will try to reach his Omcologist, Dr Ross, regarding how long to continue empiric antibx after Dch. Expecting DCh tomorrow (2) Myelodysplasia (myelodysplastic syndrome) Impression: This is the cause of his pancytopenia. He has been receiving treatment with Dacogen and also receiving Aricept for the anemia. The biopsy results are still pending. We will continue to hold off on Neupogen until these results are available. (3) Pancytopenia Impression: His hemoglobin has plateaued. We will hold off on transfusion at this time but will continue to monitor his hemoglobin closely and transfuse for goal hemoglobin greater than 8 as his oncologist preferred on an outpatient basis. His platelet count is also plateaued. We will continue to hold his Eliquis for the time being but will likely resume it when plts rising. (4) History of pulmonary embolus (PE) Impression: Platelet count is stabilized. We will continue to hold his Eliquis today but will look to resume it soon at 5 mg twice daily. (5) Obstructive sleep apnea on CPAP Impression: Continue his home CPAP. (6) Type 2 diabetes mellitus, controlled Impression: His blood glucose has been elevated at around 180-200. We increased his evening dose of Lantus and continue sliding scale. Carb controlled diet. Qualifiers: Diabetes mellitus long-term insulin use: without long-term use Diabetes mellitus complication status: without complication Qualified Code(s): E11.9 - Type 2 diabetes mellitus without complications (7) Hypertension Impression: He was hypertensive with systolic in the 130s and some readings as high as the 160s. We have continued his home medications including angiotensin receptor katelyn, carvedilol, and hydrochlorothiazide. We increased his carvedilol to 6.25 mg twice daily and today will stop the HCTZ, due to low BP (110 systolic). (8) Hypokalemia Impression: This is still decreased at 3.0. He has needed replacement daily, he is already on daily potassium supplementation which we will continue. Will replace with KO4 iv riders today. Will stop the HCTZ, as he is running a low BP (110 systolic). (9) Hypophosphatemia Replace as above (10) Weakness Likley multifactorial: from anemia, fever, electrolyte depletion. Orthostatic vital sign checks were ordered. He is not orthostatic today but systolic is only 100-110. We will stop the HCTZ which is adding to his abnormal electrolytes as above. (11) L hip pain, R rib cage pain Will obtain XRays, since there have been falls, to eval for fracture. - Current Meds Current Meds: Current Medications Generic Name Dose Route Start Last Admin Trade Name Freq PRN Reason Stop Dose Admin Acetaminophen 650 mg 11/26/20 16:13 11/29/20 03:52 Acetaminophen 325 Mg Tablet PO 650 mg Q4HR PRN Administration Pain or Fever > 38C (100.4F) Acyclovir 400 mg 11/25/20 21:00 11/29/20 08:18 Acyclovir 200 Mg Capsule PO 400 mg BID ANUSHA Administration Allopurinol 300 mg 11/26/20 09:00 11/29/20 08:15 Allopurinol 100 Mg Tablet PO 300 mg DAILY ANUSHA Administration Carvedilol 6.25 mg 11/28/20 09:00 11/29/20 08:18 Carvedilol 3.125 Mg Tablet PO 6.25 mg BID ANUSHA Administration Heparin Sodium (Beef Lung) 30 - 50 unit 11/27/20 08:36 11/29/20 05:46 Heparin Flush 50 Units/5 Ml Syringe IVP 50 unit PRN PRN Administration Port Protocol (<24 hours) Cefepime HCl 2 gm/ Sodium 100 mls @ 200 mls/hr 11/26/20 04:00 11/29/20 04:29 Chloride IV Infused Q8H ANUSHA Infusion Vancomycin HCl 1 gm/ 250 mls @ 167 mls/hr 11/26/20 08:00 11/29/20 08:21 Vancomycin HCl 250 mg/ Sodium IV 167 mls/hr Chloride Q12H ANUSHA Administration Sodium Chloride 500 mls @ 20 mls/hr 11/27/20 22:16 11/29/20 08:38 Normal Saline 0.9% IV 0 mls/hr Q24H PRN Infusion TKO RATE Insulin Aspart 2 - 10 unit 11/28/20 21:00 11/29/20 08:13 Insulin Aspart 300 Unit/3 Ml Pen SUBQ 6 unit 0800,1200,1700,2100 [facility] Administration Protocol Insulin Aspart 5 unit 11/29/20 08:00 11/29/20 08:13 Insulin Aspart 300 Unit/3 Ml Pen SUBQ 5 unit TIDWM ANUSHA Administration Lidocaine 1 applic 11/25/20 23:00 11/29/20 08:19 Lidocaine Ointment 5% 35.44 Gm Tube TOP Not Given QID [facility] Losartan Potassium 100 mg 11/26/20 09:00 11/29/20 08:18 Losartan 50 Mg Tablet PO 100 mg DAILY ANUSHA Administration Potassium Chloride 20 meq 11/26/20 08:00 11/29/20 08:19 Potassium Chloride 20 Meq Tablet PO 20 meq DAILYWM ANUSHA Administration Sodium Chloride 10 ml 11/25/20 19:55 11/29/20 05:47 Sodium Chloride Flush 0.9% 10 Ml Syringe IVP 10 ml PRN PRN Administration NEEDED PER PROVIDER ORDERS Sodium Chloride 10 ml 11/26/20 01:00 11/29/20 08:19 Sodium Chloride Flush 0.9% 10 Ml Syringe IVP Not Given 0100,0900,1700 [facility] - Lab Result Fish Bone Diagrams: 11/29/20 05:50 11/29/20 05:50 - Additional Planning My Orders: My Active Orders 11/29/20 10:00 Potassium Phosphate/NS 15 mmol/250 mL q4h Potassium Phosphate 15 mmol Sodium Chloride 0.9% [Normal Saline 0.9%] 250 ml IV Q4H Subjective - Subjective Patient Reports: Feeling Better, Resting Comfortably Nursing Reports: Other (R rib cage pain reported to RN today & still has L hip pain (where had bone marrow bx)) Objective Vital Signs: Vital Signs - 24 hr 11/28/20 11/28/20 11/28/20 12:32 16:49 19:49 Temperature 36.9 C 37 C 37.4 C Heart Rate [ 87 100 Brachial] Respiratory 18 18 Rate Blood Pressure 119/52 L 146/77 H [Right Brachial artery] O2 Saturation 96 97 11/28/20 11/28/20 11/29/20 19:56 20:19 00:02 Temperature 37.4 C 37.2 C Heart Rate [ 100 109 H 89 Brachial] Respiratory 18 18 Rate Blood Pressure 146/66 H 147/83 H 128/64 [Right Brachial artery] O2 Saturation 96 97 11/29/20 11/29/20 11/29/20 02:58 05:55 07:23 Temperature 37.0 C 37.3 C 36.8 C Heart Rate [ 79 Brachial] Respiratory 18 Rate Blood Pressure 122/60 [Right Brachial artery] O2 Saturation 97 11/29/20 08:15 Temperature Heart Rate [ 92 Brachial] Respiratory Rate Blood Pressure 132/83 H [Right Brachial artery] O2 Saturation Oxygen O2 Source CPAP I&O (Last 24 Hrs): Intake and Output Totals x24h 11/27/20 11/28/20 11/29/20 23:59 23:59 23:59 Intake Total 3890 2755.333 1348.333 Output Total 2895 1395 825 Balance 995 1360.333 523.333 General: Alert, Oriented x3 HEENT: Mucous membr. 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0) H 11/29/20 05:50 Plt Count 100 10^3/uL (130-450) L 11/29/20 05:50 MPV TNP 11/28/20 05:32 Neut # (Auto) Not Reportable 11/29/20 05:50 Lymph # (Auto) Not Reportable 11/29/20 05:50 Armstrong # (Auto) Not Reportable 11/29/20 05:50 Eos # (Auto) Not Reportable 11/29/20 05:50 Baso # (Auto) Not Reportable 11/29/20 05:50 Absolute Nucleated RBC Not Reportable 11/29/20 05:50 Total Counted 100 11/29/20 05:50 Band Neuts % (Manual) 0 % (0-10) 11/29/20 05:50 Abnorm Lymph % (Manual) 0 % 11/29/20 05:50 Promyelocytes % 1 % (-0) H 11/29/20 05:50 Nucleated RBC % Not Reportable 11/29/20 05:50 Neutrophils # (Manual) 0.4 10^3/uL (1.5-6.6) L* 11/29/20 05:50 Lymphocytes # (Manual) 0.2 10^3/uL (1.5-3.5) L 11/29/20 05:50 Monocytes # (Manual) 0.0 10^3/uL (0.0-1.0) 11/29/20 05:50 Eosinophils # (Manual) 0.0 10^3/uL (0-0.7) 11/29/20 05:50 Basophils # (Manual) 0.1 10^3/uL (0-0.1) 11/29/20 05:50 Differential Comment MANUAL DIFFERENTIAL 11/29/20 05:50 WBC Morphology NORMAL APPEARANCE (NORMAL) 11/29/20 05:50 Platelet Estimate DECREASED (<130,000) (NORMAL) 11/29/20 05:50 Platelet Morphology NORMAL APPEARANCE (NORMAL) 11/29/20 05:50 RBC Morph Micro Appear NORMAL APPEARANCE (NORMAL) 11/29/20 05:50 Sodium 130 mmol/L (135-145) L 11/29/20 05:50 Potassium 3.1 mmol/L (3.5-5.0) L 11/29/20 05:50 Chloride 97 mmol/L (101-111) L 11/29/20 05:50 Carbon Dioxide 25 mmol/L (21-32) 11/29/20 05:50 Anion Gap 8.0 (6-13) 11/29/20 05:50 BUN 24 mg/dL (6-20) H 11/29/20 05:50 Creatinine 1.2 mg/dL (0.6-1.2) 11/29/20 05:50 Estimated GFR (MDRD) 60 (>89) L 11/29/20 05:50 Glucose 223 mg/dL (70-100) H 11/29/20 05:50 POC Whole Bld Glucose 226 mg/dL (70 - 100) H 11/29/20 07:20 Lactic Acid 1.3 mmol/L (0.5-2.2) 11/25/20 18:31 Calcium 7.9 mg/dL (8.5-10.3) L 11/29/20 05:50 Phosphorus 1.5 mg/dL (2.5-4.6) L 11/29/20 05:50 Magnesium 1.8 mg/dL (1.7-2.8) 11/29/20 05:50 Total Bilirubin 1.1 mg/dL (0.2-1.0) H 11/28/20 07:20 Direct Bilirubin 0.2 mg/dL (0.1-0.5) 11/28/20 07:20 AST 37 IU/L (10-42) 11/28/20 07:20 ALT 30 IU/L (10-60) 11/28/20 07:20 Alkaline Phosphatase 24 IU/L (42-121) L 11/28/20 07:20 Total Protein 5.7 g/dL (6.7-8.2) L 11/28/20 07:20 Albumin 2.9 g/dL (3.2-5.5) L 11/28/20 07:20 Globulin 2.8 g/dL (2.1-4.2) 11/28/20 07:20 Albumin/Globulin Ratio 1.5 (1.0-2.2) 11/25/20 18:31 Urine Color YELLOW 11/25/20 21:06 Urine Clarity CLEAR (CLEAR) 11/25/20 21:06 Urine pH 5.0 PH (5.0-7.5) 11/25/20 21:06 Ur Specific [place] >=1.030 (1.002-1.030) H 11/25/20 21:06 Urine Protein 30 mg/dL (NEGATIVE) H 11/25/20 21:06 Urine Glucose (UA) NEGATIVE mg/dL (NEGATIVE) 11/25/20 21:06 Urine Ketones NEGATIVE mg/dL (NEGATIVE) 11/25/20 21:06 Urine Occult Blood SMALL (NEGATIVE) H 11/25/20 21:06 Urine Nitrite NEGATIVE (NEGATIVE) 11/25/20 21:06 Urine Bilirubin NEGATIVE (NEGATIVE) 11/25/20 21:06 Urine Urobilinogen 0.2 (NORMAL) E.U./dL (NORMAL) 11/25/20 21:06 Ur Leukocyte Esterase NEGATIVE (NEGATIVE) 11/25/20 21:06 Urine RBC 0-5 /HPF (0-5) 11/25/20 21:06 Urine WBC 0-3 /HPF (0-3) 11/25/20 21:06 Ur Squamous Epith Cells FEW Squamous (<= Few) 11/25/20 21:06 Urine Bacteria Few /HPF (None Seen) 11/25/20 21:06 Urine Mucus Few Strands 11/25/20 21:06 Urine Culture Comments NOT INDICATED 11/25/20 21:06 Nasal Adenovirus (PCR) NOT DETECTED 11/25/20 18:43 Nasal B. parapertussis DNA (PCR) NOT DETECTED 11/25/20 18:43 Nasal Coronavir 229E PCR NOT DETECTED 11/25/20 18:43 Nasal Coronavir HKU1 PCR NOT DETECTED 11/25/20 18:43 Nasal Coronavir NL63 PCR NOT DETECTED 11/25/20 18:43 Nasal Coronavir OC43 PCR NOT DETECTED 11/25/20 18:43 Nasal Enterovir/Rhinovir PCR NOT DETECTED 11/25/20 18:43 Nasal Influenza B PCR NOT DETECTED 11/25/20 18:43 Nasal Influenza A PCR NOT DETECTED 11/25/20 18:43 Nasal Parainfluen 1 PCR NOT DETECTED 11/25/20 18:43 Nasal Parainfluen 2 PCR NOT DETECTED 11/25/20 18:43 Nasal Parainfluen 3 PCR NOT DETECTED 11/25/20 18:43 Nasal Parainfluen 4 PCR NOT DETECTED 11/25/20 18:43 Nasal RSV (PCR) NOT DETECTED 11/25/20 18:43 Nasal B.pertussis DNA PCR NOT DETECTED 11/25/20 18:43 Nasal C.pneumoniae (PCR) NOT DETECTED 11/25/20 18:43 Tin Human Metapneumo PCR NOT DETECTED 11/25/20 18:43 Nasal M.pneumoniae (PCR) NOT DETECTED 11/25/20 18:43 Nasal SARS-CoV-2 (PCR) NOT DETECTED 11/25/20 18:43 Stl C. diff Tox B Gene NEGATIVE (NEGATIVE) 11/26/20 11:40 Last Dose Date NA 11/28/20 07:20 Last Dose Time NA 11/28/20 07:20 Vancomycin Trough 14.0 ug/mL (10.0-20.0) 11/28/20 07:20 Blood Type O NEGATIVE 11/27/20 11:57 Antibody Screen NEGATIVE 11/27/20 11:57
[2020-11-29] MEDS ORDERED: POTASSIUM CHLOR 10 MEQ/100 ML 10 MEQ/100 ML BAG IV SCH (10:00)
[2020-11-29] MEDS: polyethylene glycoL 3350 17 GM PACKET PO SCH (10:53)
[2020-11-29] MEDS: POTASSIUM PHOSPHATE 15 MMOL in SODIUM CHLORIDE 0.9% 250 ML IV SCH ×2 (11:31→15:34)
--- NOTE | 2020-11-29 18:26 | XRAY Report ---
PROCEDURE: Hip w/Pelvis 2-3V LT INDICATIONS: L hip pain, fell OOB, also had marrow bx recently TECHNIQUE: AP pelvis with lateral view(s) of the bilateral hip(s). COMPARISON: None. FINDINGS: Bones: No fractures or dislocations. Pelvic ring appears intact. No suspicious bony lesions. Mild bilateral hip degenerative change. Soft tissues: The visualized bowel gas pattern is normal. No suspicious soft tissue calcifications. IMPRESSION: Mild bilateral hip degenerative change. No evidence of acute bony abnormality of the pel vis and left hip. Reviewed by: Amarjit Silverio MD on 11/29/2020 6:25 PM PDT Approved by: Amarjit Silverio MD on 11/29/2020 6:25 PM PDT Station ID: [id number]
--- NOTE | 2020-11-29 18:30 | XRAY Report ---
PROCEDURE: Ribs w/PA Chest RT INDICATIONS: R lower rib cage pain, fell OOB recently TECHNIQUE: 2 views of the right ribs were acquired, along with a single view chest. COMPARISON: 11/25/2020 FINDINGS: Surgical changes and devices: Left chest Port-A-Cath. Bones and chest wall: No fractures or dislocations. No suspicious bony lesions. Overlying soft tis sues appear unremarkable. Lungs and pleura: No pleural effusions or pneumothorax. Patchy right basilar atelectasis. Mediastinum: Mediastinal contours appear normal. Heart size is normal. IMPRESSION: No evidence of displaced right rib fracture. Patchy right basilar atelectasis. Reviewed by: Amarjit Silverio MD on 11/29/2020 6:29 PM PDT Approved by: Amarjit Silverio MD on 11/29/2020 6:29 PM PDT Station ID: [id number]
[2020-11-29] MEDS: INSULIN GLARGINE 300 UNIT/3 ML PEN SUBQ SCH (21:24)
[2020-11-30] MEDS: SODIUM CHLORIDE FLUSH 0.9% 10 ML SYRINGE IVP SCH ×4 (03:59→23:51)
[2020-11-30] MEDS: SODIUM CHLORIDE FLUSH 0.9% 10 ML SYRINGE IVP PRN ×2 (03:59→04:00)
[2020-11-30] MEDS: CEFEPIME 2 GM in SODIUM CHLORIDE 0.9% MINIBAG 100 ML IV SCH (04:10)
[2020-11-30 05:06] LABS: BASOPHILS % (AUTO) 2.7 %; HCT - HEMATOCRIT 24.9 % (42.0-52.0); HGB - HEMOGLOBIN 8.1 g/dL (14.0-18.0); LYMPHOCYTES % (AUTO) 28.6 %; MEAN CORPUSCULAR HEMOGLOBIN 33.1 pg (27.0-31.0); MEAN CORPUSCULAR HGB CONC 32.5 g/dL (32.0-36.0); MEAN CORPUSCULAR VOLUME 101.6 fL (80.0-94.0); MEAN PLATELET VOLUME 13.3 fL (7.4-11.4); MONOCYTES % (AUTO) 7.1 %; NEUTROPHILS % (AUTO) 55.3 %; PLT - PLATELET COUNT 161 10^3/uL (130-450); RED BLOOD COUNT 2.45 10^6/uL (4.70-6.10); RED CELL DISTRIBUTION WIDTH 16.7 % (12.0-15.0)
[2020-11-30 05:17] LABS: CREATININE 1.3 mg/dL (0.6-1.2); MAGNESIUM 1.8 mg/dL (1.7-2.8); PHOSPHORUS 2.4 mg/dL (2.5-4.6); POTASSIUM 3.2 mmol/L (3.5-5.0)
[2020-11-30 05:23] LABS: WHITE BLOOD COUNT 1.1 x10^3/uL (4.8-10.8)
[2020-11-30 05:24] LABS: ABNORMAL LYMPHS % (MANUAL) 0 %; BAND NEUTROPHILS % (MANUAL) 0 %
[2020-11-30 05:46] LABS: LYMPHOCYTES # (MANUAL) 0.4 10^3/uL (1.5-3.5); LYMPHOCYTES % (MANUAL) 40 %; MONOCYTES # (MANUAL) 0.1 10^3/uL (0.0-1.0); NEUTROPHILS # (MANUAL) 0.6 10^3/uL (1.5-6.6); RBC MORPHOLOGY (MULTIPLE) NORMAL APPEARANCE (NORMAL)
[2020-11-30 05:47] LABS: DIFFERENTIAL COMMENT MANUAL DIFFERENTIAL; PLATELET ESTIMATE, MANUAL NORMAL (130-450,000) (NORMAL)
[2020-11-30] MEDS ORDERED: POTASSIUM CHLORIDE 20 MEQ TABLET PO ONE (06:26)
[2020-11-30] MEDS: INSULIN ASPART 300 UNIT/3 ML PEN SUBQ SCH ×7 (08:24→21:04)
[2020-11-30] MEDS: POTASSIUM CHLORIDE 20 MEQ TABLET PO SCH (08:30)
[2020-11-30] MEDS: allopurinoL 100 MG TABLET PO SCH (08:33)
[2020-11-30] MEDS: carvediloL 3.125 MG TABLET PO SCH ×2 (08:33→20:33)
[2020-11-30] MEDS: ACYCLOVIR 200 MG CAPSULE PO SCH ×2 (08:34→20:32)
[2020-11-30] MEDS: LOSARTAN 50 MG TABLET PO SCH (08:46)
[2020-11-30] MEDS: polyethylene glycoL 3350 17 GM PACKET PO SCH (08:47)
[2020-11-30] MEDS: LIDOCAINE OINTMENT 5% 35.44 GM TUBE TOP SCH ×4 (08:48→20:34)
--- NOTE | 2020-11-30 08:52 | PROVIDER PROGRESS NOTE ---
Assessment/Plan - Problem List (1) Neutropenic fever Assessment/Plan: He had another low-grade fever this morning, temperature of 38.0 C. Today, he has more fatigue. Up til now there has been no obvious source of infection. He has been on empiric iv vancomycin and cefepime IV. We have not administered Neupogen given we are awaiting the bone marrow biopsy results. With today's fever, he did have ordered new blood cx x2, a CXR and U/A. Continue supportive measures with neutropenic contact precautions and neutropenic diet. No discharge today, as was hoped, since he just had this fever again. Will try to reach his Oncologist, Dr Ross, regarding how long to continue empiric antibx after Dch. (2) HCAP The CXR from today was read as bilateral basal pneumonia. Yesterday, with rib XRays, the lungs were read as having basal atelectasis. His exam today has definite rales at both bases. Will change Cefepime to Meropenam, continue iv Vancomycin. Will add Mucinex for expectoration, and IS for atelectasis. Will order a sputum cx, if he makes sputum. No discharge today, as was hoped. (3) Myelodysplasia (myelodysplastic syndrome) Impression: This is the cause of his pancytopenia. He has been receiving treatment with Dacogen and also receiving Aricept for the anemia. The bone marrow recent biopsy results are still pending. We will continue to hold off on Neupogen until these results are available. (4) Pancytopenia Impression: His WBC has started to improve from 0.8 daily, it is up to 1.1 today. His hemoglobin has plateaued. We will hold off on transfusion at this time but will continue to monitor his hemoglobin closely and transfuse for goal hemoglobin greater than 8 as his Oncologist preferred on an outpatient basis. His platelet count has recovered to 161 today. Will resume his Eliquis today. Will stop the sq Heparin. (5) Depression His daughter visited today and revealed to me that the patient is "feeling down". I will discuss his emotional status. The daughter requests that antidepressants be started while he is here. We will offer this to the patient. (6) History of pulmonary embolus (PE) Impression: Platelet count is stabilized. We will continue to hold his Eliquis today but will look to resume it soon at 5 mg twice daily. (7) Obstructive sleep apnea on CPAP Impression: Continue his home CPAP. (8) Type 2 diabetes mellitus, controlled Impression: His blood glucose has been elevated at around 180-200. We increased his evening dose of Lantus and continue sliding scale. Carb controlled diet. Qualifiers: Diabetes mellitus long-term insulin use: without long-term use Diabetes mellitus complication status: without complication Qualified Code(s): E11.9 - Type 2 diabetes mellitus without complications (9) Hypertension Impression: He was hypertensive with systolic in the 130s and some readings as high as the 160s. We have continued his home medications including angiotensin receptor katelyn, carvedilol, and hydrochlorothiazide. We increased his carvedilol to 6.25 mg twice daily and today will stop the HCTZ, due to low BP (110 systolic). (10) Hypokalemia Impression: This is still decreased despite daily po KCl and iv replacement. Possibly this is due to new loose stools and being on HCTZ, which was stopped yesterday. Will replace K with KO4 iv rider today. Continue oral KCl daily, increasing the dose. Remain off the HCTZ, as he was running a soft BP, and losing fluid in loose BMs. (11) Hypophosphatemia Possibly related to new lose stools. Replace (12) Loose stools/diarrhea Will check C. diff if the stool is watery. Will add lomotil prn, if no C diff. Now that WBC is >1, will add a probiotic. Follow WBC daily. (13) Weakness Likley multifactorial: from anemia, fever, electrolyte depletion. Orthostatic vital sign checks were ordered. He is not orthostatic for the past 2 days. Will stop orthostatic checks. We stopped the HCTZ yesterday, which is adding to his abnormal electrolytes as above. Will order PT eval, before he is Rih to home, hopefully soon. (14) L hip pain, R rib cage pain XRays were done yesterday, since there have been falls, to eval for fracture. The R rib series showed no fractures. The L hip XRays showed no fracture or dislocation, but changes of DJD sen. - Current Meds Current Meds: Current Medications Generic Name Dose Route Start Last Admin Trade Name Freq PRN Reason Stop Dose Admin Acetaminophen 650 mg 11/26/20 16:13 11/29/20 21:32 Acetaminophen 325 Mg Tablet PO 650 mg Q4HR PRN Administration Pain or Fever > 38C (100.4F) Acyclovir 400 mg 11/25/20 21:00 11/30/20 08:34 Acyclovir 200 Mg Capsule PO 400 mg BID ANUSHA Administration Allopurinol 300 mg 11/26/20 09:00 11/30/20 08:33 Allopurinol 100 Mg Tablet PO 300 mg DAILY ANUSHA Administration Carvedilol 6.25 mg 11/28/20 09:00 11/30/20 08:33 Carvedilol 3.125 Mg Tablet PO 6.25 mg BID ANUSHA Administration Heparin Sodium (Beef Lung) 30 - 50 unit 11/27/20 08:36 11/29/20 05:46 Heparin Flush 50 Units/5 Ml Syringe IVP 50 unit PRN PRN Administration Port Protocol (<24 hours) Cefepime HCl 2 gm/ Sodium 100 mls @ 200 mls/hr 11/26/20 04:00 11/30/20 04:40 Chloride IV Infused Q8H ANUSHA Infusion Vancomycin HCl 1 gm/ 250 mls @ 167 mls/hr 11/26/20 08:00 11/29/20 22:50 Vancomycin HCl 250 mg/ Sodium IV Infused Chloride Q12H ANUSHA Infusion Sodium Chloride 500 mls @ 20 mls/hr 11/27/20 22:16 11/29/20 22:44 Normal Saline 0.9% IV Infused Q24H PRN Infusion TKO RATE Insulin Aspart 2 - 10 unit 11/28/20 21:00 11/30/20 08:24 Insulin Aspart 300 Unit/3 Ml Pen SUBQ 4 unit 0800,1200,1700,2100 ANUSHA Administration Protocol Insulin Aspart 5 unit 11/29/20 08:00 11/30/20 08:26 Insulin Aspart 300 Unit/3 Ml Pen SUBQ 5 unit TIDWM ANUSHA Administration Insulin Glargine 18 unit 11/29/20 21:00 11/29/20 21:24 Insulin Glargine 300 Unit/3 Ml Pen SUBQ 18 unit QPM ANUSHA Administration Lidocaine 1 applic 11/25/20 23:00 11/30/20 08:48 Lidocaine Ointment 5% 35.44 Gm Tube TOP 1 applic QID ANUSHA Administration Losartan Potassium 100 mg 11/26/20 09:00 11/30/20 08:46 Losartan 50 Mg Tablet PO 100 mg DAILY ANUSHA Administration Oxycodone HCl 5 mg 11/25/20 19:55 11/29/20 10:34 Oxycodone 5 Mg Tablet PO 5 mg Q4HR PRN Administration Pain 5 to 7 Polyethylene Glycol 17 gm 11/29/20 11:00 11/30/20 08:47 Polyethylene Glycol 3350 17 Gm Packet PO Not Given DAILY ANUSHA Potassium Chloride 20 meq 11/26/20 08:00 11/30/20 08:30 Potassium Chloride 20 Meq Tablet PO 20 meq DAILYWM ANUSHA Administration Sodium Chloride 10 ml 11/25/20 19:55 11/30/20 04:00 Sodium Chloride Flush 0.9% 10 Ml Syringe IVP 10 ml PRN PRN Administration NEEDED PER PROVIDER ORDERS Sodium Chloride 10 ml 11/26/20 01:00 11/30/20 08:48 Sodium Chloride Flush 0.9% 10 Ml Syringe IVP 10 ml 0100,0900,1700 ANUSHA Administration - Lab Result Fish Bone Diagrams: 11/30/20 04:25 11/30/20 04:25 - Additional Planning My Orders: My Active Orders 11/30/20 CULTURE, BLOOD #1 [RM] Stat CULTURE, BLOOD #2 [RM] Stat UA w/ MICROSCOPIC, CULT IF [URIN] Urgent 11/30/20 08:31 Chest 1 View X-Ray [XR] Stat Subjective - Subjective Patient Reports: Resting Comfortably Objective Vital Signs: Vital Signs - 24 hr 11/29/20 11/29/20 11/30/20 12:19 16:23 01:20 Temperature 36.6 C 37.4 C 36.7 C Heart Rate [ 101 H 118 H 88 Brachial] Respiratory 20 20 20 Rate Blood Pressure 144/76 H 128/80 114/59 L [Right Brachial artery] O2 Saturation 95 98 96 11/30/20 07:29 Temperature 38.0 C H Heart Rate [ 98 Brachial] Respiratory 18 Rate Blood Pressure 132/58 H [Right Brachial artery] O2 Saturation 93 Oxygen O2 Source Room air I&O (Last 24 Hrs): Intake and Output Totals x24h 11/28/20 11/29/20 11/30/20 23:59 23:59 23:59 Intake Total 2755.333 3927.000 500 Output Total 1395 5 125 Balance 1421.012 4501.000 375 General: Alert, Oriented x3, Other (appears tired) HEENT: EOMI, Mucous membr. moist/pink Neck: Supple, No JVD Neuro: Alert, Non Focal Cardiovascular: Regular rate Respiratory: No respiratory distress, Rales (at both bases) Abdomen: Soft, Other (Obese with a pannus) Extremities: No edema Skin: No rashes - Results Results: Laboratory Results WBC 1.1 x10^3/uL (4.8-10.8) L* 11/30/20 04:25 RBC 2.45 10^6/uL (4.70-6.10) L 11/30/20 04:25 Hgb 8.1 g/dL (14.0-18.0) L 11/30/20 04:25 Hct 24.9 % (42.0-52.0) L 11/30/20 04:25 MCV 101.6 fL (80.0-94.0) H 11/30/20 04:25 MCH 33.1 pg (27.0-31.0) H 11/30/20 04:25 MCHC 32.5 g/dL (32.0-36.0) 11/30/20 04:25 RDW 16.7 % (12.0-15.0) H 11/30/20 04:25 Plt Count 161 10^3/uL (130-450) 11/30/20 04:25 MPV 13.3 fL (7.4-11.4) H 11/30/20 04:25 Neut # (Auto) Not Reportable 11/30/20 04:25 Lymph # (Auto) Not Reportable 11/30/20 04:25 [place] # (Auto) Not Reportable 11/30/20 04:25 Eos # (Auto) Not Reportable 11/30/20 04:25 Baso # (Auto) Not Reportable 11/30/20 04:25 Absolute Nucleated RBC Not Reportable 11/30/20 04:25 Total Counted 100 11/30/20 04:25 Band Neuts % (Manual) 0 % (0-10) 11/30/20 04:25 Abnorm Lymph % (Manual) 0 % 11/30/20 04:25 Promyelocytes % 1 % (-0) H 11/29/20 05:50 Nucleated RBC % Not Reportable 11/30/20 04:25 Neutrophils # (Manual) 0.6 10^3/uL (1.5-6.6) L 11/30/20 04:25 Lymphocytes # (Manual) 0.4 10^3/uL (1.5-3.5) L 11/30/20 04:25 Monocytes # (Manual) 0.1 10^3/uL (0.0-1.0) 11/30/20 04:25 Eosinophils # (Manual) 0.0 10^3/uL (0-0.7) 11/30/20 04:25 Basophils # (Manual) 0.0 10^3/uL (0-0.1) 11/30/20 04:25 Differential Comment MANUAL DIFFERENTIAL 11/30/20 04:25 WBC Morphology NORMAL APPEARANCE (NORMAL) 11/29/20 05:50 Platelet Estimate NORMAL (130-450,000) (NORMAL) 11/30/20 04:25 Platelet Morphology NORMAL APPEARANCE (NORMAL) 11/29/20 05:50 RBC Morph Micro Appear NORMAL APPEARANCE (NORMAL) 11/30/20 04:25 Sodium 131 mmol/L (135-145) L 11/30/20 04:25 Potassium 3.2 mmol/L (3.5-5.0) L 11/30/20 04:25 Chloride 95 mmol/L (101-111) L 11/30/20 04:25 Carbon Dioxide 25 mmol/L (21-32) 11/30/20 04:25 Anion Gap 11.0 (6-13) 11/30/20 04:25 BUN 23 mg/dL (6-20) H 11/30/20 04:25 Creatinine 1.3 mg/dL (0.6-1.2) H 11/30/20 04:25 Estimated GFR (MDRD) 55 (>89) L 11/30/20 04:25 Glucose 200 mg/dL (70-100) H 11/30/20 04:25 POC Whole Bld Glucose 217 mg/dL (70 - 100) H 11/30/20 07:21 Lactic Acid 1.3 mmol/L (0.5-2.2) 11/25/20 18:31 Calcium 8.0 mg/dL (8.5-10.3) L 11/30/20 04:25 Phosphorus 2.4 mg/dL (2.5-4.6) L 11/30/20 04:25 Magnesium 1.8 mg/dL (1.7-2.8) 11/30/20 04:25 Total Bilirubin 1.1 mg/dL (0.2-1.0) H 11/28/20 07:20 Direct Bilirubin 0.2 mg/dL (0.1-0.5) 11/28/20 07:20 AST 37 IU/L (10-42) 11/28/20 07:20 ALT 30 IU/L (10-60) 11/28/20 07:20 Alkaline Phosphatase 24 IU/L (42-121) L 11/28/20 07:20 Total Protein 5.7 g/dL (6.7-8.2) L 11/28/20 07:20 Albumin 2.9 g/dL (3.2-5.5) L 11/28/20 07:20 Globulin 2.8 g/dL (2.1-4.2) 11/28/20 07:20 Albumin/Globulin Ratio 1.5 (1.0-2.2) 11/25/20 18:31 Urine Color YELLOW 11/25/20 21:06 Urine Clarity CLEAR (CLEAR) 11/25/20 21:06 Urine pH 5.0 PH (5.0-7.5) 11/25/20 21:06 Ur Specific [place] >=1.030 (1.002-1.030) H 11/25/20 21:06 Urine Protein 30 mg/dL (NEGATIVE) H 11/25/20 21:06 Urine Glucose (UA) NEGATIVE mg/dL (NEGATIVE) 11/25/20 21:06 Urine Ketones NEGATIVE mg/dL (NEGATIVE) 11/25/20 21:06 Urine Occult Blood SMALL (NEGATIVE) H 11/25/20 21:06 Urine Nitrite NEGATIVE (NEGATIVE) 11/25/20 21:06 Urine Bilirubin NEGATIVE (NEGATIVE) 11/25/20 21:06 Urine Urobilinogen 0.2 (NORMAL) E.U./dL (NORMAL) 11/25/20 21:06 Ur Leukocyte Esterase NEGATIVE (NEGATIVE) 11/25/20 21:06 Urine RBC 0-5 /HPF (0-5) 11/25/20 21:06 Urine WBC 0-3 /HPF (0-3) 11/25/20 21:06 Ur Squamous Epith Cells FEW Squamous (<= Few) 11/25/20 21:06 Urine Bacteria Few /HPF (None Seen) 11/25/20 21:06 Urine Mucus Few Strands 11/25/20 21:06 Urine Culture Comments NOT INDICATED 11/25/20 21:06 Nasal Adenovirus (PCR) NOT DETECTED 11/25/20 18:43 Nasal B. parapertussis DNA (PCR) NOT DETECTED 11/25/20 18:43 Nasal Coronavir 229E PCR NOT DETECTED 11/25/20 18:43 Nasal Coronavir HKU1 PCR NOT DETECTED 11/25/20 18:43 Nasal Coronavir NL63 PCR NOT DETECTED 11/25/20 18:43 Nasal Coronavir OC43 PCR NOT DETECTED 11/25/20 18:43 Nasal Enterovir/Rhinovir PCR NOT DETECTED 11/25/20 18:43 Nasal Influenza B PCR NOT DETECTED 11/25/20 18:43 Nasal Influenza A PCR NOT DETECTED 11/25/20 18:43 Nasal Parainfluen 1 PCR NOT DETECTED 11/25/20 18:43 Nasal Parainfluen 2 PCR NOT DETECTED 11/25/20 18:43 Nasal Parainfluen 3 PCR NOT DETECTED 11/25/20 18:43 Nasal Parainfluen 4 PCR NOT DETECTED 11/25/20 18:43 Nasal RSV (PCR) NOT DETECTED 11/25/20 18:43 Nasal B.pertussis DNA PCR NOT DETECTED 11/25/20 18:43 Nasal C.pneumoniae (PCR) NOT DETECTED 11/25/20 18:43 Tin Human Metapneumo PCR NOT DETECTED 11/25/20 18:43 Nasal M.pneumoniae (PCR) NOT DETECTED 11/25/20 18:43 Nasal SARS-CoV-2 (PCR) NOT DETECTED 11/25/20 18:43 Stl C. diff Tox B Gene NEGATIVE (NEGATIVE) 11/26/20 11:40 Last Dose Date NA 11/28/20 07:20 Last Dose Time NA 11/28/20 07:20 Vancomycin Trough 14.0 ug/mL (10.0-20.0) 11/28/20 07:20 Blood Type O NEGATIVE 11/27/20 11:57 Antibody Screen NEGATIVE 11/27/20 11:57
[2020-11-30] MEDS: VANCOMYCIN INJ 1 GM, VANCOMYCIN INJ 250 MG in SODIUM CHLORIDE 0.9% 250 ML IV SCH ×2 (08:57→19:52)
[2020-11-30] MEDS ORDERED: APIXABAN 5 MG TABLET PO SCH (09:00)
--- NOTE | 2020-11-30 09:23 | XRAY Report ---
PROCEDURE: Chest 1 View X-Ray INDICATIONS: Neutropenic fever TECHNIQUE: One view of the chest was acquired. COMPARISON: 11/29/2020 chest x-ray FINDINGS: Surgical changes and devices: Left chest wall lilly catheter. Lungs and pleura: No pleural effusions or pneumothorax. There is no change in mild patchy bilateral perihilar and right basilar opacity. Mediastinum: Mediastinal contours appear normal. Heart size is normal. Bones and chest wall: No suspicious bony lesions. Overlying soft tissues appear unremarkable. IMPRESSION: No change in bilateral pneumonia. Reviewed by: Kim Randall MD on 11/30/2020 9:21 AM PDT Approved by: Kim Randall MD on 11/30/2020 9:21 AM PDT Station ID: [id number]
[2020-11-30] MEDS ORDERED: DIPHENOX/ATROPINE 2.5/0.025 MG TABLET PO PRN (10:57)
[2020-11-30] MEDS: guaiFENesin 600 MG TABLET PO SCH ×2 (11:27→20:32)
[2020-11-30] MEDS: MEROPENEM 1 GM in SODIUM CHLORIDE 0.9% MINIBAG 100 ML IV SCH ×2 (11:27→21:38)
[2020-11-30] MEDS ORDERED: POTASSIUM PHOSPHATE 15 MMOL in SODIUM CHLORIDE 0.9% 250 ML IV ONE (11:30)
[2020-11-30] MEDS: SODIUM CHLORIDE 0.9% 500 ML IV PRN (16:33)
[2020-11-30] MEDS: ACETAMINOPHEN 325 MG TABLET PO PRN (16:51)
[2020-11-30 18:02] LABS: BILIRUBIN,URINE NEGATIVE (NEGATIVE); GLUCOSE, URINE (UA) NEGATIVE (NEGATIVE); KETONES,URINE (UA) NEGATIVE (NEGATIVE); LEUKOCYTE ESTERASE, URINE NEGATIVE (NEGATIVE); NITRITE,URINE NEGATIVE (NEGATIVE); OCCULT BLOOD,URINE MODERATE (NEGATIVE); PH,URINE 5.5 PH (5.0-7.5); PROTEIN,URINE 100 mg/dL (NEGATIVE); UROBILINOGEN,URINE 0.2 (NORMAL) E.U./dL (NORMAL)
[2020-11-30 18:03] LABS: CLARITY,URINE CLOUDY (CLEAR)
[2020-11-30 18:34] LABS: WBC,URINE 0-3 /HPF (0-3)
[2020-11-30 18:35] LABS: AMORPHOUS SEDIMENT,UR Moderate /LPF; BACTERIA,URINE Rare /HPF (None Seen); RBC,URINE 0-5 /HPF (0-5); SQUAMOUS EPITHELIAL CELL,UR NONE SEEN (<= Few)
[2020-11-30] MEDS: APIXABAN 5 MG TABLET PO SCH (20:33)
[2020-11-30] MEDS: INSULIN GLARGINE 300 UNIT/3 ML PEN SUBQ SCH (21:05)
[2020-12-01 05:22] LABS: BASOPHILS % (AUTO) 2.7 %; EOSINOPHILS % (AUTO) 1.1 %; HCT - HEMATOCRIT 22.8 % (42.0-52.0); HGB - HEMOGLOBIN 7.6 g/dL (14.0-18.0); LYMPHOCYTES % (AUTO) 31.5 %; MEAN CORPUSCULAR HEMOGLOBIN 34.1 pg (27.0-31.0); MEAN CORPUSCULAR HGB CONC 33.3 g/dL (32.0-36.0); MEAN CORPUSCULAR VOLUME 102.2 fL (80.0-94.0); MEAN PLATELET VOLUME 12.2 fL (7.4-11.4); MONOCYTES % (AUTO) 20.7 %; NEUTROPHILS % (AUTO) 39.7 %; PLT - PLATELET COUNT 209 10^3/uL (130-450); RED BLOOD COUNT 2.23 10^6/uL (4.70-6.10); RED CELL DISTRIBUTION WIDTH 16.9 % (12.0-15.0)
[2020-12-01 05:32] LABS: CALCIUM 7.9 mg/dL (8.5-10.3); CREATININE 1.4 mg/dL (0.6-1.2); MAGNESIUM 1.8 mg/dL (1.7-2.8); PHOSPHORUS 1.8 mg/dL (2.5-4.6); POTASSIUM 3.4 mmol/L (3.5-5.0)
[2020-12-01] MEDS: MEROPENEM 1 GM in SODIUM CHLORIDE 0.9% MINIBAG 100 ML IV SCH ×3 (05:35→22:03)
[2020-12-01 05:46] LABS: WHITE BLOOD COUNT 1.8 x10^3/uL (4.8-10.8)
[2020-12-01 05:47] LABS: ABNORMAL LYMPHS % (MANUAL) 0 %; BAND NEUTROPHILS % (MANUAL) 0 %
[2020-12-01 05:54] LABS: DIFFERENTIAL COMMENT MANUAL DIFFERENTIAL; LYMPHOCYTES % (MANUAL) 49 %; MONOCYTES # (MANUAL) 0.1 10^3/uL (0.0-1.0); NEUTROPHILS # (MANUAL) 0.8 10^3/uL (1.5-6.6); PLATELET ESTIMATE, MANUAL NORMAL (130-450,000) (NORMAL); RBC MORPHOLOGY (MULTIPLE) NORMAL APPEARANCE (NORMAL); REACTIVE LYMPHS % (MANUAL) 5 %
[2020-12-01] MEDS: INSULIN ASPART 300 UNIT/3 ML PEN SUBQ SCH ×7 (08:00→22:02)
[2020-12-01] MEDS: POTASSIUM CHLORIDE 20 MEQ TABLET PO SCH (08:00)
[2020-12-01] MEDS: APIXABAN 5 MG TABLET PO SCH ×2 (08:01→22:02)
[2020-12-01] MEDS: allopurinoL 100 MG TABLET PO SCH (08:01)
[2020-12-01] MEDS: LOSARTAN 50 MG TABLET PO SCH (08:01)
[2020-12-01] MEDS: carvediloL 3.125 MG TABLET PO SCH ×2 (08:01→22:02)
[2020-12-01] MEDS: ACYCLOVIR 200 MG CAPSULE PO SCH ×2 (08:01→22:01)
[2020-12-01] MEDS: guaiFENesin 600 MG TABLET PO SCH ×2 (08:01→22:01)
[2020-12-01] MEDS: SODIUM CHLORIDE FLUSH 0.9% 10 ML SYRINGE IVP SCH ×3 (08:02→23:28)
[2020-12-01] MEDS: polyethylene glycoL 3350 17 GM PACKET PO SCH (08:02)
[2020-12-01] MEDS: VANCOMYCIN INJ 1 GM, VANCOMYCIN INJ 250 MG in SODIUM CHLORIDE 0.9% 250 ML IV SCH ×2 (08:15→20:06)
[2020-12-01] MEDS: LIDOCAINE OINTMENT 5% 35.44 GM TUBE TOP SCH ×4 (08:16→22:03)
[2020-12-01] MEDS ORDERED: LACTOBACILLUS RHAMNOSUS GG CAPSULE PO SCH (09:00)
[2020-12-01] MEDS ORDERED: LOPERAMIDE 2 MG CAPSULE PO PRN (10:43)
--- NOTE | 2020-12-01 12:53 | PROVIDER PROGRESS NOTE ---
Assessment/Plan - Problem List (1) Neutropenic fever Assessment/Plan: He had another low-grade fever this morning, temperature of 38.0 C. Yesterday and today, he has more fatigue. Up til yesterday there has been no obvious source of infection. He had been on empiric iv vancomycin and cefepime IV. We have not administered Neupogen given we are awaiting the bone marrow biopsy results. With the fever, he did have ordered new blood cx x2, a CXR and U/A. Continue supportive measures with neutropenic contact precautions and neutropenic diet. No discharge today, as was hoped, since he just had this fever again. (2) HCAP The CXR from yesterday was read as bilateral basal pneumonia. His exam has definite rales at both bases as of yesterday. We changed Cefepime to Meropenam for better PNA coverage, continuing iv Vancomycin empirically We started Mucinex for expectoration, and IS for atelectasis. Today will add chest PT to break up infiltrates. No discharge today, as was hoped. (3) Myelodysplasia (myelodysplastic syndrome) This is the cause of his pancytopenia. The bone marrow recent biopsy results are still pending. We will continue to hold off on Neupogen until these results are available. (4) Pancytopenia His WBC has started to improve from 0.8 daily, it is up to 1.1 yesterday and 1.8 today. His hemoglobin has plateaued. We will hold off on transfusion at this time but will continue to monitor his hemoglobin closely and transfuse for goal hemoglobin greater than 8 as his Oncologist preferred on an outpatient basis. His platelet count has recovered since yesterday as well. We resumed his Eliquis and stopped the sq Heparin. (5) Depression His daughter visited and spoke to me yesterday and revealed to me that the patient is "feeling down" and requested that antidepressants be started while he is here. I discuss his emotional status with the patient and offered to start anti-depressant. He declined it. (6) History of pulmonary embolus (PE) Platelet count is stabilized. We resumed his Eliquis and stopped the sq Heparin. (7) Obstructive sleep apnea on CPAP Continue his home CPAP. (8) Type 2 diabetes mellitus, controlled His blood glucose has been elevated at around 180-200. We increased his evening dose of Lantus and continue sliding scale. Carb controlled diet. (9) Hypertension We have continued his home medications including angiotensin receptor katelyn, carvedilol. We increased his carvedilol to 6.25 mg twice daily but stopped stop the HCTZ, due to low BP (110 systolic). (10) Hypokalemia This is still decreased despite daily po KCl and iv replacement. Possibly this is due to new loose stools and being on HCTZ, which was stopped yesterday. Will replace K with KO4 iv rider today. Continue oral KCl daily, increasing the dose. Remain off the HCTZ, as he was running a soft BP, and losing fluid in loose BMs. (11) Hypophosphatemia Possibly related to lose stools. Replace (12) Loose stools/diarrhea We checked C. diff again yesterday, and it is neg. Will add Lomotil prn and Imodium prn Now that WBC is >1, we added a probiotic. Following WBC daily. (13) Weakness Likley multifactorial: from anemia, fever, electrolyte depletion. Orthostatic vital sign checks were ordered. He is not orthostatic for the past 2 days. Will stop orthostatic checks. We stopped the HCTZ, which was adding to his abnormal electrolytes as above. Will order PT eval, before he is Dch to home, hopefully soon. (14) L hip pain, R rib cage pain XRays were done 2 days ago, since there have been falls, to eval for fracture. The R rib series showed no fractures. The L hip XRays showed no fracture or dislocation, but changes of DJD seen. When his daughter and I spoke at his bedside yesterday, she mentioned that the right rib cage area pain is pleuritic and is similar to when he had a pneumonia in the past, she did not think it was rib pain. - Current Meds Current Meds: Current Medications Generic Name Dose Route Start Last Admin Trade Name Freq PRN Reason Stop Dose Admin Acetaminophen 650 mg 11/26/20 16:13 11/30/20 16:51 Acetaminophen 325 Mg Tablet PO 650 mg Q4HR PRN Administration Pain or Fever > 38C (100.4F) Acyclovir 400 mg 11/25/20 21:00 12/01/20 08:01 Acyclovir 200 Mg Capsule PO 400 mg BID ANUSHA Administration Allopurinol 300 mg 11/26/20 09:00 12/01/20 08:01 Allopurinol 100 Mg Tablet PO 300 mg DAILY ANUSHA Administration Apixaban 5 mg 11/30/20 11:05 12/01/20 08:01 Apixaban 5 Mg Tablet PO 5 mg BID ANUSHA Administration Carvedilol 6.25 mg 11/28/20 09:00 12/01/20 08:01 Carvedilol 3.125 Mg Tablet PO 6.25 mg BID ANUSHA Administration Diphenoxylate HCl/Atropine 1 tab 11/30/20 10:57 11/30/20 20:38 Diphenox/Atropine 2.5/0.025 Mg Tablet PO 1 tab QID PRN Administration Diarrhea Guaifenesin 600 mg 11/30/20 11:00 12/01/20 08:01 Guaifenesin 600 Mg Tablet PO 600 mg BID ANUSHA Administration Vancomycin HCl 1 gm/ 250 mls @ 167 mls/hr 11/26/20 08:00 12/01/20 09:45 Vancomycin HCl 250 mg/ Sodium IV Infused Chloride Q12H ANUSHA Infusion Sodium Chloride 500 mls @ 20 mls/hr 11/27/20 22:16 11/30/20 22:49 Normal Saline 0.9% IV 20 mls/hr Q24H PRN Infusion TKO RATE Meropenem 1 gm/ Sodium 100 mls @ 200 mls/hr 11/30/20 12:00 12/01/20 06:28 Chloride IV Infused Q8HR ANUSHA Infusion Insulin Aspart 5 unit 11/29/20 08:00 12/01/20 11:52 Insulin Aspart 300 Unit/3 Ml Pen SUBQ 5 unit TIDWM ANUSHA Administration Insulin Aspart 3 - 11 unit 11/30/20 21:00 12/01/20 11:52 Insulin Aspart 300 Unit/3 Ml Pen SUBQ 5 unit 0800,1200,1700,2100 ANUSHA Administration Protocol Insulin Glargine 18 unit 11/29/20 21:00 11/30/20 21:05 Insulin Glargine 300 Unit/3 Ml Pen SUBQ 18 unit QPM ANUSHA Administration Lactobacillus Rhamnosus 1 cap 12/01/20 09:00 12/01/20 08:15 Lactobacillus Rhamnosus Gg Capsule PO 1 cap DAILY ANUSHA Administration Lidocaine 1 applic 11/25/20 23:00 12/01/20 08:16 Lidocaine Ointment 5% 35.44 Gm Tube TOP Not Given QID ANUSHA Losartan Potassium 100 mg 11/26/20 09:00 12/01/20 08:01 Losartan 50 Mg Tablet PO 100 mg DAILY ANUSHA Administration Oxycodone HCl 5 mg 11/25/20 19:55 11/29/20 10:34 Oxycodone 5 Mg Tablet PO 5 mg Q4HR PRN Administration Pain 5 to 7 Polyethylene Glycol 17 gm 11/29/20 11:00 12/01/20 08:02 Polyethylene Glycol 3350 17 Gm Packet PO Not Given DAILY ANUSHA Potassium Chloride 40 meq 12/01/20 08:00 12/01/20 08:00 Potassium Chloride 20 Meq Tablet PO 40 meq DAILYWM ANUSHA Administration Sodium Chloride 10 ml 11/25/20 19:55 11/30/20 04:00 Sodium Chloride Flush 0.9% 10 Ml Syringe IVP 10 ml PRN PRN Administration NEEDED PER PROVIDER ORDERS Sodium Chloride 10 ml 11/26/20 01:00 12/01/20 08:02 Sodium Chloride Flush 0.9% 10 Ml Syringe IVP Not Given 0100,0900,1700 ANUSHA - Lab Result Fish Bone Diagrams: 12/01/20 04:55 12/01/20 04:55 - Diagnostic Imaging Results Diagnostic Imaging Results: Final report reviewed - Additional Planning My Orders: My Active Orders 11/30/20 12:00 Meropenem [Merrem] 1 gm Sodium Chloride 0.9% Minibag [Normal Saline 0.9% Minibag] 100 ml IV Q8HR 11/30/20 20:01 CUL, RESPIRATORY [RM] Urgent 11/30/20 21:00 Insulin Aspart [NovoLOG] 3 - 11 unit SUBQ 0800,1200,1700,2100 12/01/20 07:58 IS [Incentive Spirometry - RT] [RC] TID 12/01/20 08:00 Potassium Chloride [K-Dur] 40 meq PO DAILYWM 12/01/20 09:00 Lactobacillus Rhamnosus GG [Culturelle] 1 cap PO DAILY 12/01/20 10:43 Loperamide [Imodium] 2 mg PO QID PRN 12/02/20 05:00 BMP - BASIC METABOLIC PANEL [CHEM] DAILYLAB CBC - COMP BLD CT W/AUTO DIFF [HEME] DAILYLAB Subjective - Subjective Patient Reports: Fatigue (he is currently sleeping), Other (Had a fever last evening at about 5 PM and also fever this morning at 0730) Objective Vital Signs: Vital Signs - 24 hr 11/30/20 11/30/20 11/30/20 16:37 17:50 17:54 Temperature 39.3 C H 37.7 C 37.7 C Heart Rate [ 106 H Brachial] Respiratory 20 Rate Blood Pressure 126/56 L [Right Brachial artery] O2 Saturation 94 11/30/20 11/30/20 12/01/20 21:57 23:52 07:18 Temperature 37.0 C 36.9 C 38.9 C H Heart Rate [ 92 Brachial] Respiratory 20 18 Rate Blood Pressure 139/69 H 130/71 [Right Brachial artery] O2 Saturation 97 96 Oxygen O2 Source CPAP I&O (Last 24 Hrs): Intake and Output Totals x24h 11/29/20 11/30/20 12/01/20 23:59 23:59 23:59 Intake Total 3927.000 2374.667 1460 Output Total 2025 775 850 Balance 3379.829 7941.667 610 General: Other (Sleeping w/ CPAP mask on) HEENT: Mucous membr. moist/pink Neck: Supple Neuro: Non Focal Cardiovascular: Regular rate Respiratory: No respiratory distress, Breath sounds nml (anteriorly) Abdomen: Soft (Obese) Extremities: No edema - Results Results: Laboratory Results WBC 1.8 x10^3/uL (4.8-10.8) L* 12/01/20 04:55 RBC 2.23 10^6/uL (4.70-6.10) L 12/01/20 04:55 Hgb 7.6 g/dL (14.0-18.0) L 12/01/20 04:55 Hct 22.8 % (42.0-52.0) L 12/01/20 04:55 MCV 102.2 fL (80.0-94.0) H 12/01/20 04:55 MCH 34.1 pg (27.0-31.0) H 12/01/20 04:55 MCHC 33.3 g/dL (32.0-36.0) 12/01/20 04:55 RDW 16.9 % (12.0-15.0) H 12/01/20 04:55 Plt Count 209 10^3/uL (130-450) 12/01/20 04:55 MPV 12.2 fL (7.4-11.4) H 12/01/20 04:55 Neut # (Auto) Not Reportable 12/01/20 04:55 Lymph # (Auto) Not Reportable 12/01/20 04:55 [place] # (Auto) Not Reportable 12/01/20 04:55 Eos # (Auto) Not Reportable 12/01/20 04:55 Baso # (Auto) Not Reportable 12/01/20 04:55 Absolute Nucleated RBC Not Reportable 12/01/20 04:55 Total Counted 100 12/01/20 04:55 Band Neuts % (Manual) 0 % (0-10) 12/01/20 04:55 Reactive Lymphs % (Man) 5 % 12/01/20 04:55 Abnorm Lymph % (Manual) 0 % 12/01/20 04:55 Promyelocytes % 1 % (-0) H 11/29/20 05:50 Nucleated RBC % Not Reportable 12/01/20 04:55 Neutrophils # (Manual) 0.8 10^3/uL (1.5-6.6) L 12/01/20 04:55 Lymphocytes # (Manual) 1.0 10^3/uL (1.5-3.5) L 12/01/20 04:55 Monocytes # (Manual) 0.1 10^3/uL (0.0-1.0) 12/01/20 04:55 Eosinophils # (Manual) 0.0 10^3/uL (0-0.7) 12/01/20 04:55 Basophils # (Manual) 0.0 10^3/uL (0-0.1) 12/01/20 04:55 Differential Comment MANUAL DIFFERENTIAL 12/01/20 04:55 WBC Morphology NORMAL APPEARANCE (NORMAL) 11/29/20 05:50 Platelet Estimate NORMAL (130-450,000) (NORMAL) 12/01/20 04:55 Platelet Morphology NORMAL APPEARANCE (NORMAL) 11/29/20 05:50 RBC Morph Micro Appear NORMAL APPEARANCE (NORMAL) 12/01/20 04:55 Sodium 130 mmol/L (135-145) L 12/01/20 04:55 Potassium 3.4 mmol/L (3.5-5.0) L 12/01/20 04:55 Chloride 96 mmol/L (101-111) L 12/01/20 04:55 Carbon Dioxide 24 mmol/L (21-32) 12/01/20 04:55 Anion Gap 10.0 (6-13) 12/01/20 04:55 BUN 28 mg/dL (6-20) H 12/01/20 04:55 Creatinine 1.4 mg/dL (0.6-1.2) H 12/01/20 04:55 Estimated GFR (MDRD) 50 (>89) L 12/01/20 04:55 Glucose 231 mg/dL (70-100) H 12/01/20 04:55 POC Whole Bld Glucose 220 mg/dL (70 - 100) H 12/01/20 11:38 Lactic Acid 1.3 mmol/L (0.5-2.2) 11/25/20 18:31 Calcium 7.9 mg/dL (8.5-10.3) L 12/01/20 04:55 Phosphorus 1.8 mg/dL (2.5-4.6) L 12/01/20 04:55 Magnesium 1.8 mg/dL (1.7-2.8) 12/01/20 04:55 Total Bilirubin 1.1 mg/dL (0.2-1.0) H 11/28/20 07:20 Direct Bilirubin 0.2 mg/dL (0.1-0.5) 11/28/20 07:20 AST 37 IU/L (10-42) 11/28/20 07:20 ALT 30 IU/L (10-60) 11/28/20 07:20 Alkaline Phosphatase 24 IU/L (42-121) L 11/28/20 07:20 Total Protein 5.7 g/dL (6.7-8.2) L 11/28/20 07:20 Albumin 2.9 g/dL (3.2-5.5) L 11/28/20 07:20 Globulin 2.8 g/dL (2.1-4.2) 11/28/20 07:20 Albumin/Globulin Ratio 1.5 (1.0-2.2) 11/25/20 18:31 Urine Color YELLOW 11/30/20 17:15 Urine Clarity CLOUDY (CLEAR) 11/30/20 17:15 Urine pH 5.5 PH (5.0-7.5) 11/30/20 17:15 Ur Specific [place] >=1.030 (1.002-1.030) H 11/30/20 17:15 Urine Protein 100 mg/dL (NEGATIVE) H 11/30/20 17:15 Urine Glucose (UA) NEGATIVE mg/dL (NEGATIVE) 11/30/20 17:15 Urine Ketones NEGATIVE mg/dL (NEGATIVE) 11/30/20 17:15 Urine Occult Blood MODERATE (NEGATIVE) H 11/30/20 17:15 Urine Nitrite NEGATIVE (NEGATIVE) 11/30/20 17:15 Urine Bilirubin NEGATIVE (NEGATIVE) 11/30/20 17:15 Urine Urobilinogen 0.2 (NORMAL) E.U./dL (NORMAL) 11/30/20 17:15 Ur Leukocyte Esterase NEGATIVE (NEGATIVE) 11/30/20 17:15 Urine RBC 0-5 /HPF (0-5) 11/30/20 17:15 Urine WBC 0-3 /HPF (0-3) 11/30/20 17:15 Ur Squamous Epith Cells NONE SEEN (<= Few) 11/30/20 17:15 Amorphous Sediment Moderate /LPF 11/30/20 17:15 Urine Bacteria Rare /HPF (None Seen) 11/30/20 17:15 Urine Mucus Few Strands 11/25/20 21:06 Urine Culture Comments NOT INDICATED 11/30/20 17:15 Nasal Adenovirus (PCR) NOT DETECTED 11/25/20 18:43 Nasal B. parapertussis DNA (PCR) NOT DETECTED 11/25/20 18:43 Nasal Coronavir 229E PCR NOT DETECTED 11/25/20 18:43 Nasal Coronavir HKU1 PCR NOT DETECTED 11/25/20 18:43 Nasal Coronavir NL63 PCR NOT DETECTED 11/25/20 18:43 Nasal Coronavir OC43 PCR NOT DETECTED 11/25/20 18:43 Nasal Enterovir/Rhinovir PCR NOT DETECTED 11/25/20 18:43 Nasal Influenza B PCR NOT DETECTED 11/25/20 18:43 Nasal Influenza A PCR NOT DETECTED 11/25/20 18:43 Nasal Parainfluen 1 PCR NOT DETECTED 11/25/20 18:43 Nasal Parainfluen 2 PCR NOT DETECTED 11/25/20 18:43 Nasal Parainfluen 3 PCR NOT DETECTED 11/25/20 18:43 Nasal Parainfluen 4 PCR NOT DETECTED 11/25/20 18:43 Nasal RSV (PCR) NOT DETECTED 11/25/20 18:43 Nasal B.pertussis DNA PCR NOT DETECTED 11/25/20 18:43 Nasal C.pneumoniae (PCR) NOT DETECTED 11/25/20 18:43 Tin Human Metapneumo PCR NOT DETECTED 11/25/20 18:43 Nasal M.pneumoniae (PCR) NOT DETECTED 11/25/20 18:43 Nasal SARS-CoV-2 (PCR) NOT DETECTED 11/25/20 18:43 Stl C. diff Tox B Gene NEGATIVE (NEGATIVE) 11/30/20 17:31 Last Dose Date NA 11/28/20 07:20 Last Dose Time NA 11/28/20 07:20 Vancomycin Trough 14.0 ug/mL (10.0-20.0) 11/28/20 07:20 Ref Lab Test Result REPORT 11/26/20 11:40 Blood Type O NEGATIVE 11/27/20 11:57 Antibody Screen NEGATIVE 11/27/20 11:57
[2020-12-01] MEDS: INSULIN GLARGINE 300 UNIT/3 ML PEN SUBQ SCH (22:03)
[2020-12-02] MEDS: SODIUM CHLORIDE 0.9% 500 ML IV PRN (04:08)
[2020-12-02 05:20] LABS: BASOPHILS % (AUTO) 1.7 %; EOSINOPHILS % (AUTO) 2.1 %; HCT - HEMATOCRIT 21.5 % (42.0-52.0); HGB - HEMOGLOBIN 7.1 g/dL (14.0-18.0); LYMPHOCYTES % (AUTO) 58.9 %; MEAN CORPUSCULAR VOLUME 102.9 fL (80.0-94.0); MEAN PLATELET VOLUME 10.3 fL (7.4-11.4); MONOCYTES % (AUTO) 14.1 %; NEUTROPHILS % (AUTO) 21.5 %; PLT - PLATELET COUNT 212 10^3/uL (130-450); RED BLOOD COUNT 2.09 10^6/uL (4.70-6.10); WHITE BLOOD COUNT 2.4 x10^3/uL (4.8-10.8)
[2020-12-02 05:22] LABS: ABNORMAL LYMPHS % (MANUAL) 0 %; BAND NEUTROPHILS % (MANUAL) 0 %
[2020-12-02 05:29] LABS: CALCIUM 7.7 mg/dL (8.5-10.3); CREATININE 1.6 mg/dL (0.6-1.2); POTASSIUM 3.5 mmol/L (3.5-5.0)
[2020-12-02] MEDS: MEROPENEM 1 GM in SODIUM CHLORIDE 0.9% MINIBAG 100 ML IV SCH ×3 (05:30→21:53)
[2020-12-02] MEDS: SODIUM CHLORIDE FLUSH 0.9% 10 ML SYRINGE IVP PRN (05:30)
[2020-12-02 05:47] LABS: EOSINOPHILS # (MANUAL) 0.1 10^3/uL (0-0.7); LYMPHOCYTES # (MANUAL) 1.6 10^3/uL (1.5-3.5); LYMPHOCYTES % (MANUAL) 67 %; MONOCYTES # (MANUAL) 0.1 10^3/uL (0.0-1.0)
[2020-12-02 05:48] LABS: PLATELET ESTIMATE, MANUAL NORMAL (130-450,000) (NORMAL); PLATELET MORPHOLOGY NORMAL APPEARANCE (NORMAL); RBC MORPHOLOGY (MULTIPLE) 1+ ANISOCYTOSIS (NORMAL)
[2020-12-02 05:49] LABS: DIFFERENTIAL COMMENT MANUAL DIFFERENTIAL; NEUTROPHILS # (MANUAL) 0.6 10^3/uL (1.5-6.6); WBC MORPHOLOGY (MULTIPLE) NORMAL APPEARANCE (NORMAL)
[2020-12-02] MEDS: INSULIN ASPART 300 UNIT/3 ML PEN SUBQ SCH ×7 (07:50→21:13)
[2020-12-02] MEDS: POTASSIUM CHLORIDE 20 MEQ TABLET PO SCH (07:52)
[2020-12-02] MEDS: VANCOMYCIN INJ 1 GM, VANCOMYCIN INJ 250 MG in SODIUM CHLORIDE 0.9% 250 ML IV SCH ×2 (07:53→20:08)
[2020-12-02] MEDS: APIXABAN 5 MG TABLET PO SCH ×2 (09:08→21:09)
[2020-12-02] MEDS: guaiFENesin 600 MG TABLET PO SCH ×2 (09:08→21:08)
[2020-12-02] MEDS: ACYCLOVIR 200 MG CAPSULE PO SCH ×2 (09:08→21:09)
[2020-12-02] MEDS: LOSARTAN 50 MG TABLET PO SCH (09:08)
[2020-12-02] MEDS: carvediloL 3.125 MG TABLET PO SCH ×2 (09:09→21:09)
[2020-12-02] MEDS: polyethylene glycoL 3350 17 GM PACKET PO SCH (09:09)
[2020-12-02] MEDS: LIDOCAINE OINTMENT 5% 35.44 GM TUBE TOP SCH ×4 (09:09→21:09)
[2020-12-02] MEDS: SODIUM CHLORIDE FLUSH 0.9% 10 ML SYRINGE IVP SCH (09:10)
[2020-12-02] MEDS: allopurinoL 100 MG TABLET PO SCH (09:15)
[2020-12-02] MEDS ORDERED: polyethylene glycoL 3350 17 GM PACKET PO PRN (11:51)
--- NOTE | 2020-12-02 11:55 | PROVIDER PROGRESS NOTE ---
Assessment/Plan - Problem List (1) Neutropenic fever Assessment/Plan: He had another low-grade fever this morning, temperature of 38.0 C. Earlier this admission, there has been no obvious source of infection. He had been on empiric iv vancomycin and cefepime IV. With the fever 3 days ago, a CXR showed bilat PNA, which is being treated with iv antibx. Continue supportive measures with neutropenic contact precautions and neutropenic diet. No discharge today, as was hoped, since he just had this fever again. This was discussed with the daughter Vijaya by phone today. (2) HCAP The CXR was read as bilateral basal pneumonia. His exam has definite rales at both bases still audible. We changed Cefepime to Meropenam for better PNA coverage, continuing iv Vancomycin empirically We started Mucinex for expectoration, and IS for atelectasis, and chest PT for pulmonary toilet. No discharge today, as was hoped. (3) Myelodysplasia (myelodysplastic syndrome) This is the cause of his pancytopenia. The bone marrow recent biopsy results are still pending. We will continue to hold off on Neupogen until these results are available. (4) Pancytopenia His WBC has started to improve daily. This was discussed with the daughter Vijaya by phone today. His hemoglobin has plateaued. We will hold off on transfusion at this time but will continue to monitor his hemoglobin closely and transfuse for goal hemoglobin greater than 8 as his Oncologist preferred on an outpatient basis. His platelet count has recovered since yesterday. We resumed his Eliquis. (5) Depression His daughter visited and spoke to me 2 days ago and revealed to me that the patient is "feeling down" and requested that antidepressants be started while he is here. I discuss his emotional status with the patient yesterday and offered to start anti-depressant. He declined it. Daughter requested today, by phone, that I re-offer it to him. (6) History of pulmonary embolus (PE) Platelet count has recovered. We resumed his Eliquis. (7) Obstructive sleep apnea on CPAP Continue his home CPAP for naps and at night. (8) Type 2 diabetes mellitus, controlled We increased his evening dose of Lantus and continue sliding scale. Carb controlled diet. (9) Hypertension We have continued his home medications including angiotensin receptor katelyn, carvedilol. We increased his carvedilol to 6.25 mg twice daily but stopped the HCTZ, due to low BP (110 systolic). (10) Hypokalemia Possibly this is due to new loose stools and being on HCTZ. Continue oral KCl daily, increasing the dose. Remain off the HCTZ, as he was running a soft BP, and losing fluid in loose BMs. (11) Hypophosphatemia Probably related to lose stools as well, being replaced. (12) Loose stools/diarrhea We checked C. diff 2 days ago again and it was neg. Likely loose BMs are from chemo and the iv antibx. He is ordered to get Lomotil prn and Imodium prn. Stools are firming up, he reported today. Will only give Miralax prn. (13) Weakness Likley multifactorial: from anemia, fever, electrolyte depletion. We stopped the HCTZ, which was adding to his abnormal electrolytes as above. Will order PT eval today, before he is [facility] to home, hopefully soon. (14) L hip pain, R rib cage pain XRays were done, since there have been falls, to eval for fracture. The R rib series showed no fractures. The L hip XRays showed no fracture or dislocation, but changes of DJD seen. When his daughter and I spoke at his bedside 2 days ago, she mentioned that the right rib cage area pain is pleuritic and is similar to when he had a pneumonia in the past, she did not think it was rib pain, but a sign of a pneumonia (she was an EMT). - Current Meds Current Meds: Current Medications Generic Name Dose Route Start Last Admin Trade Name Freq PRN Reason Stop Dose Admin Acetaminophen 650 mg 11/26/20 16:13 11/30/20 16:51 Acetaminophen 325 Mg Tablet PO 650 mg Q4HR PRN Administration Pain or Fever > 38C (100.4F) Acyclovir 400 mg 11/25/20 21:00 12/02/20 09:08 Acyclovir 200 Mg Capsule PO 400 mg BID ANUSHA Administration Allopurinol 300 mg 11/26/20 09:00 12/02/20 09:15 Allopurinol 100 Mg Tablet PO 300 mg DAILY ANUSHA Administration Apixaban 5 mg 11/30/20 11:05 12/02/20 09:08 Apixaban 5 Mg Tablet PO 5 mg BID ANUSHA Administration Carvedilol 6.25 mg 11/28/20 09:00 12/02/20 09:09 Carvedilol 3.125 Mg Tablet PO 6.25 mg BID ANUSHA Administration Diphenoxylate HCl/Atropine 1 tab 11/30/20 10:57 11/30/20 20:38 Diphenox/Atropine 2.5/0.025 Mg Tablet PO 1 tab QID PRN Administration Diarrhea Guaifenesin 600 mg 11/30/20 11:00 12/02/20 09:08 Guaifenesin 600 Mg Tablet PO 600 mg BID ANUSHA Administration Heparin Sodium (Beef Lung) 30 - 50 unit 12/02/20 05:07 12/02/20 05:30 Heparin Flush 50 Units/5 Ml Syringe IVP 50 unit PRN PRN Administration Port Protocol (<24 hours) Vancomycin HCl 1 gm/ 250 mls @ 167 mls/hr 11/26/20 08:00 12/02/20 09:25 Vancomycin HCl 250 mg/ Sodium IV Infused Chloride Q12H ANUSHA Infusion Meropenem 1 gm/ Sodium 100 mls @ 200 mls/hr 11/30/20 12:00 12/02/20 06:32 Chloride IV Infused Q8HR ANUSHA Infusion Insulin Aspart 5 unit 11/29/20 08:00 12/02/20 11:37 Insulin Aspart 300 Unit/3 Ml Pen SUBQ 5 unit TIDWM ANUSHA Administration Insulin Aspart 3 - 11 unit 11/30/20 21:00 12/02/20 11:36 Insulin Aspart 300 Unit/3 Ml Pen SUBQ 9 unit 0800,1200,1700,2100 ANUSHA Administration Protocol Insulin Glargine 18 unit 11/29/20 21:00 12/01/20 22:03 Insulin Glargine 300 Unit/3 Ml Pen SUBQ 18 unit QPM ANUSHA Administration Lidocaine 1 applic 11/25/20 23:00 12/02/20 09:09 Lidocaine Ointment 5% 35.44 Gm Tube TOP 1 applic QID ANUSHA Administration Losartan Potassium 100 mg 11/26/20 09:00 12/02/20 09:08 Losartan 50 Mg Tablet PO 100 mg DAILY ANUSHA Administration Oxycodone HCl 5 mg 11/25/20 19:55 11/29/20 10:34 Oxycodone 5 Mg Tablet PO 5 mg Q4HR PRN Administration Pain 5 to 7 Potassium Chloride 40 meq 12/01/20 08:00 12/02/20 07:52 Potassium Chloride 20 Meq Tablet PO 40 meq DAILYWM ANUSHA Administration Sodium Chloride 10 ml 11/25/20 19:55 12/02/20 05:30 Sodium Chloride Flush 0.9% 10 Ml Syringe IVP 10 ml PRN PRN Administration NEEDED PER PROVIDER ORDERS - Lab Result Fish Bone Diagrams: 12/02/20 05:10 12/02/20 05:10 - Additional Planning My Orders: My Active Orders 12/01/20 13:43 CPT - Chest Physical Therapy [RC] TID 12/02/20 Evaluate and Treat PT [PT] Routine 12/02/20 11:51 polyethylene glycoL 3350 [Miralax] 17 gm PO DAILY PRN Subjective - Subjective Patient Reports: Resting Comfortably, No Complaints Nursing Reports: Other (Appears SOB when speaking) Objective Vital Signs: Vital Signs - 24 hr 12/01/20 12/01/20 12/02/20 18:24 23:37 07:43 Temperature 37.5 C 36.5 C 38.0 C H Heart Rate [ 93 78 72 Brachial] Respiratory 20 20 18 Rate Blood Pressure 129/78 142/80 H 136/62 H [Right Brachial artery] O2 Saturation 98 96 95 Oxygen O2 Source CPAP I&O (Last 24 Hrs): Intake and Output Totals x24h 11/30/20 12/01/20 12/02/20 23:59 23:59 23:59 Intake Total 2374.667 2960.333 1090 Output Total 775 1375 400 Balance 8618.544 0624.333 690 General: Alert, Oriented x3 HEENT: Mucous membr. moist/pink Neck: Supple, No JVD Neuro: Alert, Non Focal Cardiovascular: Regular rate, No murmurs Respiratory: Rales (bibasilar) Abdomen: Normal bowel sounds, Soft Extremities: No edema Skin: No rashes - Results Results: Laboratory Results WBC 2.4 x10^3/uL (4.8-10.8) L 12/02/20 05:10 RBC 2.09 10^6/uL (4.70-6.10) L 12/02/20 05:10 Hgb 7.1 g/dL (14.0-18.0) L 12/02/20 05:10 Hct 21.5 % (42.0-52.0) L 12/02/20 05:10 MCV 102.9 fL (80.0-94.0) H 12/02/20 05:10 MCH 34.0 pg (27.0-31.0) H 12/02/20 05:10 MCHC 33.0 g/dL (32.0-36.0) 12/02/20 05:10 RDW 17.0 % (12.0-15.0) H 12/02/20 05:10 Plt Count 212 10^3/uL (130-450) 12/02/20 05:10 MPV 10.3 fL (7.4-11.4) 12/02/20 05:10 Neut # (Auto) Not Reportable 12/02/20 05:10 Lymph # (Auto) Not Reportable 12/02/20 05:10 [place] # (Auto) Not Reportable 12/02/20 05:10 Eos # (Auto) Not Reportable 12/02/20 05:10 Baso # (Auto) Not Reportable 12/02/20 05:10 Absolute Nucleated RBC Not Reportable 12/02/20 05:10 Total Counted 100 12/02/20 05:10 Band Neuts % (Manual) 0 % (0-10) 12/02/20 05:10 Reactive Lymphs % (Man) 5 % 12/01/20 04:55 Abnorm Lymph % (Manual) 0 % 12/02/20 05:10 Promyelocytes % 1 % (-0) H 11/29/20 05:50 Nucleated RBC % Not Reportable 12/02/20 05:10 Neutrophils # (Manual) 0.6 10^3/uL (1.5-6.6) L 12/02/20 05:10 Lymphocytes # (Manual) 1.6 10^3/uL (1.5-3.5) 12/02/20 05:10 Monocytes # (Manual) 0.1 10^3/uL (0.0-1.0) 12/02/20 05:10 Eosinophils # (Manual) 0.1 10^3/uL (0-0.7) 12/02/20 05:10 Basophils # (Manual) 0.0 10^3/uL (0-0.1) 12/02/20 05:10 Differential Comment MANUAL DIFFERENTIAL 12/02/20 05:10 WBC Morphology NORMAL APPEARANCE (NORMAL) 12/02/20 05:10 Platelet Estimate NORMAL (130-450,000) (NORMAL) 12/02/20 05:10 Platelet Morphology NORMAL APPEARANCE (NORMAL) 12/02/20 05:10 RBC Morph Micro Appear 1+ ANISOCYTOSIS (NORMAL) 12/02/20 05:10 Sodium 129 mmol/L (135-145) L 12/02/20 05:10 Potassium 3.5 mmol/L (3.5-5.0) 12/02/20 05:10 Chloride 96 mmol/L (101-111) L 12/02/20 05:10 Carbon Dioxide 24 mmol/L (21-32) 12/02/20 05:10 Anion Gap 9.0 (6-13) 12/02/20 05:10 BUN 28 mg/dL (6-20) H 12/02/20 05:10 Creatinine 1.6 mg/dL (0.6-1.2) H 12/02/20 05:10 Estimated GFR (MDRD) 43 (>89) L 12/02/20 05:10 Glucose 198 mg/dL (70-100) H 12/02/20 05:10 POC Whole Bld Glucose 282 mg/dL (70 - 100) H 12/02/20 11:27 Lactic Acid 1.3 mmol/L (0.5-2.2) 11/25/20 18:31 Calcium 7.7 mg/dL (8.5-10.3) L 12/02/20 05:10 Phosphorus 1.8 mg/dL (2.5-4.6) L 12/01/20 04:55 Magnesium 1.8 mg/dL (1.7-2.8) 12/01/20 04:55 Total Bilirubin 1.1 mg/dL (0.2-1.0) H 11/28/20 07:20 Direct Bilirubin 0.2 mg/dL (0.1-0.5) 11/28/20 07:20 AST 37 IU/L (10-42) 11/28/20 07:20 ALT 30 IU/L (10-60) 11/28/20 07:20 Alkaline Phosphatase 24 IU/L (42-121) L 11/28/20 07:20 Total Protein 5.7 g/dL (6.7-8.2) L 11/28/20 07:20 Albumin 2.9 g/dL (3.2-5.5) L 11/28/20 07:20 Globulin 2.8 g/dL (2.1-4.2) 11/28/20 07:20 Albumin/Globulin Ratio 1.5 (1.0-2.2) 11/25/20 18:31 Urine Color YELLOW 11/30/20 17:15 Urine Clarity CLOUDY (CLEAR) 11/30/20 17:15 Urine pH 5.5 PH (5.0-7.5) 11/30/20 17:15 Ur Specific [place] >=1.030 (1.002-1.030) H 11/30/20 17:15 Urine Protein 100 mg/dL (NEGATIVE) H 11/30/20 17:15 Urine Glucose (UA) NEGATIVE mg/dL (NEGATIVE) 11/30/20 17:15 Urine Ketones NEGATIVE mg/dL (NEGATIVE) 11/30/20 17:15 Urine Occult Blood MODERATE (NEGATIVE) H 11/30/20 17:15 Urine Nitrite NEGATIVE (NEGATIVE) 11/30/20 17:15 Urine Bilirubin NEGATIVE (NEGATIVE) 11/30/20 17:15 Urine Urobilinogen 0.2 (NORMAL) E.U./dL (NORMAL) 11/30/20 17:15 Ur Leukocyte Esterase NEGATIVE (NEGATIVE) 11/30/20 17:15 Urine RBC 0-5 /HPF (0-5) 11/30/20 17:15 Urine WBC 0-3 /HPF (0-3) 11/30/20 17:15 Ur Squamous Epith Cells NONE SEEN (<= Few) 11/30/20 17:15 Amorphous Sediment Moderate /LPF 11/30/20 17:15 Urine Bacteria Rare /HPF (None Seen) 11/30/20 17:15 Urine Mucus Few Strands 11/25/20 21:06 Urine Culture Comments NOT INDICATED 11/30/20 17:15 Nasal Adenovirus (PCR) NOT DETECTED 11/25/20 18:43 Nasal B. parapertussis DNA (PCR) NOT DETECTED 11/25/20 18:43 Nasal Coronavir 229E PCR NOT DETECTED 11/25/20 18:43 Nasal Coronavir HKU1 PCR NOT DETECTED 11/25/20 18:43 Nasal Coronavir NL63 PCR NOT DETECTED 11/25/20 18:43 Nasal Coronavir OC43 PCR NOT DETECTED 11/25/20 18:43 Nasal Enterovir/Rhinovir PCR NOT DETECTED 11/25/20 18:43 Nasal Influenza B PCR NOT DETECTED 11/25/20 18:43 Nasal Influenza A PCR NOT DETECTED 11/25/20 18:43 Nasal Parainfluen 1 PCR NOT DETECTED 11/25/20 18:43 Nasal Parainfluen 2 PCR NOT DETECTED 11/25/20 18:43 Nasal Parainfluen 3 PCR NOT DETECTED 11/25/20 18:43 Nasal Parainfluen 4 PCR NOT DETECTED 11/25/20 18:43 Nasal RSV (PCR) NOT DETECTED 11/25/20 18:43 Nasal B.pertussis DNA PCR NOT DETECTED 11/25/20 18:43 Nasal C.pneumoniae (PCR) NOT DETECTED 11/25/20 18:43 Tin Human Metapneumo PCR NOT DETECTED 11/25/20 18:43 Nasal M.pneumoniae (PCR) NOT DETECTED 11/25/20 18:43 Nasal SARS-CoV-2 (PCR) NOT DETECTED 11/25/20 18:43 Stl C. diff Tox B Gene NEGATIVE (NEGATIVE) 11/30/20 17:31 Last Dose Date NA 11/28/20 07:20 Last Dose Time NA 11/28/20 07:20 Vancomycin Trough 14.0 ug/mL (10.0-20.0) 11/28/20 07:20 Ref Lab Test Result REPORT 11/26/20 11:40 Blood Type O NEGATIVE 11/27/20 11:57 Antibody Screen NEGATIVE 11/27/20 11:57
[2020-12-02] MEDS: ACETAMINOPHEN 325 MG TABLET PO PRN (14:43)
[2020-12-02] MEDS ORDERED: AZITHROMYCIN 250 MG TABLET PO STA (19:31)
[2020-12-02] MEDS: INSULIN GLARGINE 300 UNIT/3 ML PEN SUBQ SCH (21:12)
[2020-12-03] MEDS: SODIUM CHLORIDE FLUSH 0.9% 10 ML SYRINGE IVP PRN ×4 (01:03→08:04)
[2020-12-03] MEDS: MEROPENEM 1 GM in SODIUM CHLORIDE 0.9% MINIBAG 100 ML IV SCH ×2 (05:29→14:32)
[2020-12-03 07:50] LABS: BASOPHILS # (AUTO) 0.1 10^3/uL (0.0-0.1); BASOPHILS % (AUTO) 1.9 %; EOSINOPHILS # (AUTO) 0.1 10^3/uL (0.0-0.7); EOSINOPHILS % (AUTO) 3.5 %; HCT - HEMATOCRIT 21.2 % (42.0-52.0); LYMPHOCYTES # (AUTO) 2.4 10^3/uL (1.5-3.5); LYMPHOCYTES % (AUTO) 75.5 %; MEAN CORPUSCULAR HGB CONC 32.5 g/dL (32.0-36.0); MEAN CORPUSCULAR VOLUME 104.4 fL (80.0-94.0); MEAN PLATELET VOLUME 11.4 fL (7.4-11.4); MONOCYTES # (AUTO) 0.2 10^3/uL (0.0-1.0); NEUTROPHILS % (AUTO) 10.8 %; NRBC ABSOLUTE COUNT (AUTO) 0.02 x10^3/uL; NUCLEATED RED BLOOD CELLS AUTO 0.6 /100WBC; PLT - PLATELET COUNT 252 10^3/uL (130-450); RED BLOOD COUNT 2.03 10^6/uL (4.70-6.10); RED CELL DISTRIBUTION WIDTH 17.2 % (12.0-15.0); WHITE BLOOD COUNT 3.1 x10^3/uL (4.8-10.8)
[2020-12-03 07:54] LABS: CALCIUM 7.8 mg/dL (8.5-10.3); CREATININE 1.5 mg/dL (0.6-1.2); POTASSIUM 3.5 mmol/L (3.5-5.0)
[2020-12-03] MEDS: POTASSIUM CHLORIDE 20 MEQ TABLET PO SCH (08:03)
[2020-12-03] MEDS: VANCOMYCIN INJ 1 GM, VANCOMYCIN INJ 250 MG in SODIUM CHLORIDE 0.9% 250 ML IV SCH (08:04)
[2020-12-03] MEDS: INSULIN ASPART 300 UNIT/3 ML PEN SUBQ SCH ×4 (08:04→11:40)
[2020-12-03 08:08] LABS: HGB - HEMOGLOBIN 6.9 g/dL (14.0-18.0); NEUTROPHILS # (AUTO) 0.3 10^3/uL (1.5-6.6)
[2020-12-03] MEDS: ACYCLOVIR 200 MG CAPSULE PO SCH (09:13)
[2020-12-03] MEDS: allopurinoL 100 MG TABLET PO SCH (09:13)
[2020-12-03] MEDS: LOSARTAN 50 MG TABLET PO SCH (09:14)
[2020-12-03] MEDS: carvediloL 3.125 MG TABLET PO SCH (09:14)
[2020-12-03] MEDS: guaiFENesin 600 MG TABLET PO SCH (09:14)
[2020-12-03] MEDS: APIXABAN 5 MG TABLET PO SCH (09:14)
[2020-12-03] MEDS: LIDOCAINE OINTMENT 5% 35.44 GM TUBE TOP SCH ×2 (09:15→12:51)
[2020-12-03] MEDS ORDERED: ACETAMINOPHEN 325 MG TABLET PO ONE (10:17)
[2020-12-03] MEDS ORDERED: ESCITALOPRAM 10 MG TABLET PO SCH (11:00)
[2020-12-03] MEDS ORDERED: diphenhydrAMINE 25 MG CAPSULE PO ONE (11:00)
--- NOTE | 2020-12-03 13:12 | Discharge Plan ---
Discharge Plan Problem Reviewed?: Yes Disposition: Home, Self Care Condition: Stable Prescriptions: guaiFENesin [Chest Congestion Relief] 400 mg PO BID #7 tablet L. Acidophilus/L.bulgaricus [Lactobacillus Tablet] 1 each PO DAILY #3 tablet Escitalopram [Lexapro] 10 mg PO DAILY #30 tablet Diphenoxylate/Atropine [Lomotil] 1 each PO TID PRN #12 tablet PRN Reason: Diarrhea Azithromycin [Zithromax] 250 mg PO DAILY #3 tablet Diet: Diabetic Activity Restrictions: Activity as Tolerated Shower Restrictions: No Driving Restrictions: Yes Assistance Devices: Walker Instruction Topics: Pneumonia Prevent Health Concerns: You were hospitalized for a fever with a very low white blood count, plus anemia and low platelet count from [facility], and several days ago we found that you have pneumonia of both lungs. You are being discharged to finish a course of antibiotics for the pneumonia plus a probiotic, and Lomotil to take as needed for diarrhea. A new antidepressant (Lexapro) has been started. All new prescriptions were electronically sent to your [facility] pharmacy in [place]. Please resume all your other pre-hospital medications. Keep the appointment with your Oncologist and usual appointments with your PCP. Plan of Treatment: As above. Care Goals: Improvement in symptoms and stabilization are the goals. Assessment: The patient understands and is agreeable with the plan. The daughter Vijaya was at bedside and also agrees. Additional Instructions or Follow Up instructions: If you have new or worsening symptoms, call your PCP or Oncologist for advice or come to the ER. Follow-Up Care: [facility] - Medical No Smoking: If you smoke, Please STOP! Call for help. Follow-up with: Ben Hughes DO [Primary Care Provider] - Jani Ross MD [Provider Admit Priv/Credential] -
--- NOTE | 2020-12-03 13:28 | DISCHARGE SUMMARY ---
Discharge Summary Admit Date: 11/25/20 Discharge Date: 12/03/20 Discharging Provider: Dr Hermelinda Bonner Primary Care Provider: Dr Ben Hughes Condition at Discharge: Stable Discharge Disposition: 01 Home, Self Care - HPI History of Present Illness: The admission H&P of Dr. Cece Avalos: 70 year-old man who was diagnosed w CLL June 2013 and presented as leukocytosis and lymphadenopathy since January 2013. Bendamustine and Rituxan induction FCR completed 12/2013. Profound bone marrow suppression. Has been on prolonged colony-stimulating factor support since that time. Does have history of neutropenic fever in the past. Worsening adenopathy February 2016. Revlimid started September 2016. Subsequent fatigue, nausea, vomiting. Change to ibrutinib that month. That was given until February 2020 when a repeat bone marrow biopsy change the diagnosis to myelodysplastic syndrome with refractory anemia. Has been treated with irradiated blood for anemia. On B12 injections. Iron infusions. Steroids use. Palliative hypomethylating agent azacitridine started April 2020. Only did 1 cycle due to drug shortage. Change to decitabine 05/2020 with 5th cycle 10/2020. second opinion [facility] April 2020 and no bone marrow transplant candidate at this time. Started on acyclovir and Bactrim for prophylaxis. Bone marrow biopsy done this week to see if he is a candidate to continue with cycle #6. 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 Ever since he got his bone marrow biopsy he has not felt well. Very weak, mildly dyspneic, and started getting a fever to 102 and sometimes 103. He checks his pulse oximeter and at home he was 88% on room air. The day of his bone marrow biopsy he lost his appetite. Has not been eating or drinking very much for the last 2 days and his daughter has been forcing him. He had one episode of diarrhea in the bundle person hours of today. No blood. No abdominal pain. No dysuria or hematuria. He has chronic signs of prostatism and has the usual signs of urgency and frequency and decreased stream. His weakness and fatigue finally made him so dizzy that he slipped off the toilet at 3 am but got up and managed to get back to bed. Then he slid out of bed and landed between wall and bed. Managed to get himself up by pulling on the bedframe. Then a 3rd dizzy episode caused him to trip and fall, and could not regain his balance. When he fell and hit his head on the ground. No loss of consciousness. Currently no blurred vision, focal deficit, dysphagia or dysarthria. He is chronically anticoagulated because of his history of DVT in 2004 and pulmonary embolism in 2007. Platelets are monitored frequently due to his pancytopenia and he is continued on anticoagulation. He was seen by Dr. Smith in the emergency room where temperature was 38.7, pulse 98, blood pressure 102/87. Respirations 28, 96% on room air. He is alert and oriented in no acute distress. Abrasion on the top of his scalp. Diminished right breath sounds at the base. But no tachypnea or respiratory distress. No leg edema but he does have chronic venous stasis changes. Evaluation showed her to have a white cell count of 0.9. Hemoglobin 8.9. Hematocrit 26.6. Platelets 47. He has chronic macrocytosis at 102.3. ANC is 2. Potassium is slightly low at 3.2. BUN is 15, creatinine 1.1. Random glucose 189. Lactic acid 1.3. Chest x-ray is without acute cardiopulmonary abnormality. Because of his fall a head CT and cervical spine CT was done. He has atrophy and chronic ischemic changes without acute hemorrhage or infarct of the brain. Cervical spine CT has multilevel degenerative disc disease and arthropathy resulting in moderate right foraminal stenosis at C3-4 but no acute fracture or malalignment. Emergency room physician is now asking us to place him in inpatient status for neutropenic fever and empiric treatment. - HOSPITAL COURSE Hospital Course: (1) Neutropenic fever This patient had fevers nearly every morning and some evenings. There was no obvious source of infection. He was started on empiric iv vancomycin and ce fepime IV. His WBC remained very low and he was ordered neutropenic precutions and a neutropenic diet. Later during hospitalization, his lung exam had bilateral basal rhonchi and a CXR showed bilateral PNA. By discharge, his plts had recovered, WBC was rising, but he was anemic. (2) HCAP The CXR was read as bilateral basal pneumonia on his 6th hospital day. His exam had definite rhonchi at both bases. We changed iv Cefepime to iv Meropenam for better PNA coverage, and continued iv Vancomycin empirically. He was put on Mucinex for expectoration, Incentive Spirometry and chest PT for pulmonary toilet. We also added Zithromax eventually. He was discharged when afebrile for 24 hours, to finish a course of oral Zithromax plus a Probiotic. (3) Myelodysplasia (myelodysplastic syndrome) This and chemo was the cause of his pancytopenia. The recent bone marrow biopsy results were still pending. We held off on giving Neupogen until the results are available. (4) Pancytopenia His WBC started to improve on his 3rd day (0.8>> 0.8>> 1.1 then >>1.8>> 2.4) and the WBC was 3.1 at discharge. His platelet count recovered to normal (64>> 100>> 161>> 209>> 212>> 252 at discharge), and we then resumed his Eliquis when plts were 161. The hemoglobin plateaued at 7.6-8.0, but dropped to 7.1 then 6.9 on the morning of discharge. Thus he was transfused 1 Unit of irradiated PRBCs then. (5) Depression His daughter visited and revealed to me that the patient is "feeling down" and requested that antidepressants be started. The patient declined them twice, but eventually did agree and was discharged with new Lexapro prescription ordered. (6) History of pulmonary embolus (PE) When the low plt count recovered, we resumed his Eliquis. (7) Obstructive sleep apnea on CPAP We continued his home CPAP for naps and at night. (8) Type 2 diabetes mellitus, controlled We increased his evening dose of Lantus and ordered sliding scale Insulin and a carb controlled diet while here. (9) Hypertension We continued his home medications including angiotensin receptor katelyn and carvedilol. We increased his carvedilol to 6.25 mg twice daily but later stopped the HCTZ, due to low BP (110 systolic) and electrolyte abnormalities. (10) Hypokalemia Possibly this was due to having loose stools and being on HCTZ. He got oral KCl daily and we stopped the HCTZ, as he was running a soft BP, and losing fluid in loose BMs. (11) Hypophosphatemia Probably related to loose stools as well, and was replaced. (12) Loose stools/diarrhea We checked C. diff 2 separate times and it was neg. Likely loose BMs were from chemo and the iv antibiotics. He was ordered to get Lomotil prn and Imodium prn. (13) Weakness Likley multifactorial: from anemia, fever, electrolyte depletion. We stopped the HCTZ, which was adding to his abnormal electrolytes as above. Will ordered PT eval before his discharge, and he was issued a front-wheel walker fo help with ambulation. (14) L hip pain, R rib cage pain At mid-hospitalization he had pain and XRays were done, since there had been falls OOB, to eval for fracture. The R rib series showed no fractures. The L hip XRays (which was the side of the bone marrow biopsy) showed no fracture or dislocation, but changes of DJD seen. His daughter mentioned that the right rib cage area pain is pleuritic and is similar to when he had a pneumonia in the past, she did not think it was rib pain, but a sign of a pneumonia (she was an EMT). She was right. - ALLERGIES Allergies/Adverse Reactions: Allergies Allergy/AdvReac Type Severity Reaction Status Date / Time adhesive tape Allergy Rash Verified 12/05/20 14:21 - MEDICATIONS Home Medications: Ambulatory Orders Medication Instructions Recorded Confirmed Fenofibrate [Lofibra] 160 mg PO DAILY 06/29/13 12/05/20 Metformin HCl [Fortamet] 500 - 1,000 mg PO BID 06/29/13 12/05/20 Simvastatin 20 mg PO DAILY 06/29/13 12/05/20 Telmisartan/Hydrochlorothiazid 1 tab PO DAILY 06/29/13 12/05/20 [Micardis Hct 80-25 mg Tablet] allopurinoL [Allopurinol] 300 mg PO DAILY 06/29/13 12/05/20 Apixaban [Eliquis] 10 mg PO BID 12/29/18 12/05/20 Glipizide 10 mg PO DAILY 02/29/20 12/05/20 Omeprazole 20 mg PO DAILY 05/17/20 12/05/20 Potassium Chloride 20 meq PO DAILY 05/17/20 12/05/20 Prochlorperazine Maleate 10 mg PO DAILY 05/17/20 12/05/20 carvediloL [Coreg] 3.125 mg PO BID 05/17/20 12/05/20 Acyclovir [Zovirax] 400 mg PO BID 06/06/20 12/05/20 Sulfamethox/Trimeth 800/160 1 tab PO BID 06/06/20 12/05/20 [Bactrim Ds] Azithromycin [Zithromax] 250 mg PO DAILY #3 tablet 12/03/20 12/05/20 Diphenoxylate/Atropine [Lomotil] 1 each PO TID PRN #12 tablet 12/03/20 12/05/20 Escitalopram [Lexapro] 10 mg PO DAILY #30 tablet 12/03/20 12/05/20 L. Acidophilus/L.bulgaricus 1 each PO DAILY #3 tablet 12/03/20 12/05/20 [Lactobacillus Tablet] guaiFENesin [Chest Congestion 400 mg PO BID #7 tablet 12/03/20 12/05/20 Relief] - PHYSICAL EXAM AT DISCHARGE General Appearance: positive: No acute distress, Alert Eyes Bilateral: positive: Normal inspection, EOMI ENT: positive: ENT inspection nml, No signs of dehydration Neck: positive: Nml inspection, No JVD Respiratory: positive: No respiratory distress, Other (Fine bibasilar crackles bilaterally.) Cardiovascular: positive: Regular rate & rhythm, No murmur Abdomen: positive: Non-tender, Nml bowel sounds, No distention Skin: positive: Warm, Dry Extremities: positive: Non-tender, No pedal edema Neurologic/Psychiatric: positive: Oriented x3 (Non-focal) - LABS Result Diagrams: 12/03/20 07:42 12/03/20 07:42 - DIAGNOSTIC IMAGING Diagnostic Imaging Results: Final report reviewed - FOLLOW UP Follow Up: See Oncologist in 2 days (previously scheduled appointment). - TIME SPENT Time Spent in Discharge (Minutes): 60
[2020-12-03] MEDS ORDERED: FUROSEMIDE 20 MG/2 ML VIAL IVP ONE (14:00)
[2020-12-03 15:52] VITALS: BP 137/78
[2020-12-03] MEDS ORDERED: AZITHROMYCIN 250 MG TABLET PO SCH (16:00)
== END 2020-12-03 16:00 | disposition home or self-care (01) | DRG 808 ==
LOC: EDUNIT# → ED 18:00 → SUPCPDRO 18:00 → MS2 19:55
PROVIDERS: ADMIT Specialist; ATTEND Internal Medicine
PROC: 30233N1 Transfusion of Nonautologous Red Blood Cells into Peripheral Vein, Percutaneous Approach (ICD-10-PCS; principal; 2020-12-03)
DX: D70.9 Neutropenia, unspecified (principal); J18.9 Pneumonia, unspecified organism; S00.01XA Abrasion of scalp, initial encounter; W01.0XXA Fall on same level from slipping, tripping and stumbling without subsequent striking against object, initial encounter; I48.91 Unspecified atrial fibrillation; D46.9 Myelodysplastic syndrome, unspecified; K52.1 Toxic gastroenteritis and colitis; I67.82 Cerebral ischemia; T45.1X5A Adverse effect of antineoplastic and immunosuppressive drugs, initial encounter; D46.0 Refractory anemia without ring sideroblasts, so stated; R50.81 Fever presenting with conditions classified elsewhere; Y95 Nosocomial condition; Z20.822 Contact with and (suspected) exposure to COVID-19; D61.810 Antineoplastic chemotherapy induced pancytopenia; F32.9 Major depressive disorder, single episode, unspecified; G47.33 Obstructive sleep apnea (adult) (pediatric); Z86.711 Personal history of pulmonary embolism; Z79.01 Long term (current) use of anticoagulants; E11.9 Type 2 diabetes mellitus without complications; Z79.84 Long term (current) use of oral hypoglycemic drugs; E87.6 Hypokalemia; I10 Essential (primary) hypertension; E83.39 Other disorders of phosphorus metabolism; R53.1 Weakness; Z91.81 History of falling; M25.552 Pain in left hip; M16.12 Unilateral primary osteoarthritis, left hip; R07.81 Pleurodynia; R63.0 Anorexia; I87.8 Other specified disorders of veins; Z92.21 Personal history of antineoplastic chemotherapy; M50.30 Other cervical disc degeneration, unspecified cervical region; M48.02 Spinal stenosis, cervical region; K21.9 Gastro-esophageal reflux disease without esophagitis; Z85.6 Personal history of leukemia; Z87.891 Personal history of nicotine dependence; Z79.899 Other long term (current) drug therapy; R06.02 Shortness of breath
CPT/HCPCS: 36415; 70450; 71045; 71101; 72125; 73502; 80048; 80053; 80076; 80202; 81001; 81599; 83605; 83735; 84100; 84132; 85014; 85018; 85025; 86850; 86900; 86901; 86920; 87040; 87070; 87205; 87493; 87631; 93005; 94667; 97162; 99284; 99285; A9270; J1815; J2185; J3370; J7120; P9040; 0202U; 87045; 87046; 87086; 87427

== ENCOUNTER 2020-12-21 15:00 | Outpatient (CLI) | payer MEDICARE, OTHER ==
--- NOTE | 2020-12-21 15:28 | SLEEP CARE CONSULTATION ---
Information from patient questionnaire entered by Rosanne Colby. I have reviewed and concur with the information entered by Rosanne Colby. This document represents the service I personally performed and the decisions made by , Wendy Rivera ARNP. History of Present Illness Service Date and Time: 12/21/2020 1500 Previous diagnosis: Moderate, Obstructive Sleep Apnea-Hypopnea Syndrome AHI: 18.2 (in 2006) Reason for follow up: annual (last seen 12/2019) Equipment type: CPAP Equipment obtained from: [facility] (getting supplies as needed) Mask style: Full face Backup mask available: Yes (old mask) Last cushion change: 3 months Prior sleep studies: Yes Year and Where: 2006 - [facility] in [facility] additional information: ELOY LEE was diagnosed to have moderate, AHI 18.2, obstructive sleep apnea-hypopnea syndrome and returned today for CPAP therapy annual follow-up. CPAP Compliance Data - Data Reviewed with Patient Average duration of nightly device use: 12 hr Compliance rate %: 98 (180 days) Current pressure setting (cmH2O): 10-12 Humidity settin Average residual AHI: 0.6 Subjective Missed days of use due to: reports: other (hospitalization for 1.5 weeks) Patient concerns: reports: dry mouth, nose, throat (not real bad and taking a sip of water helps). denies: aerophagia, mask discomfort, air blowing in eyes, mask leak noise, condensation in mask/hose, nasal congestion, epistaxis, other Observed to snore while using device: No Current pressure setting perceived as: comfortable On therapy, patient: reports: sleeping better, awakening more refreshed, being more awake and alert during the day, more rested overall. denies: drowsiness while driving Initial [place] Sleepiness Scale score: 9 (in 2014) Current [place] Sleepiness Scale score: 3 Allergies and Home Medications Home medication list reviewed: Yes (Folic Acid) Review of Systems Review of systems same as previous: No (Cancer treatment (MDS) at [facility]; pneumonia 2 months ago) Physical Exam Heart Rate: 64 O2 Saturation: 98 Height: 6 ft 2 in Weight: 251 lb Weight change since last visit: 8 lb loss Body Mass Index: 32.2 BMI Classification: Obese Impression and Plan 1. Obstructive Sleep Apnea-Hypopnea Syndrome, moderate, with good treatment compliance and good apnea control. On CPAP therapy, the patient has better sleep quality and is more rested overall. Patient states 2 months ago when he had pneumonia he felt like he could use a little more pressure. He states since getting over pneumonia the pressure seems fine but he would not mind having a little extra if he needed it. I will increase his APAP pressure spread to 1014 cmH2O. We will follow-up with him next year or as needed. Patient's apnea severity and rationale for treatment to reduce apnea, improve sleep quality and reduce cardiovascular and cerebrovascular events was reviewed. * Change auto CPAP pressure to 10-14 cmH2O * Notify me if snoring with mask or feeling that the pressure is too much or too little * Attempt to lose weight * Call this office if any problems using CPAP * Return for follow up in 1 year, or sooner if concerns arise Counseling Topics: Spare mask, Weight loss health impact Visit Type: In Office Time Spent with Patient (minutes): 15 Provider Statement: I spent 100% of the Face to Face Visit with the patient with greater than 50% spent counseling the patient and coordination of care.
== END 2020-12-21 15:01 | disposition home or self-care (01) ==
LOC: SC 15:00
PROVIDERS: ATTEND Nurse Practitioner Family
DX: G47.33 Obstructive sleep apnea (adult) (pediatric) (principal); E66.9 Obesity, unspecified; Z68.32 Body mass index [BMI] 32.0-32.9, adult
CPT/HCPCS: 99212; G0463

== ENCOUNTER 2021-03-14 15:03 | Outpatient (CLI) | payer MEDICARE, OTHER ==
--- NOTE | 2021-03-14 16:34 | Ultrasound Report ---
PROCEDURE: Ankle Brachial Index INDICATIONS: VENOUS INSUFFICIENCY TECHNIQUE: Ankle-brachial indices were obtained bilaterally and recorded. COMPARISONS: None. FINDINGS: Right ankle brachial index (CHA): 1.08 Left ankle brachial index (CHA): 1.03 Healing potential: Ankle pressures >55 mm Hg in non-diabetics and >80 mm Hg in diabetics are likely to achieve primary h ealing of ischemic foot ulcers. Toe pressures >30 mm Hg are likely to achieve primary healing of ischemic foot ulcers, toe or transme tatarsal amputations. IMPRESSION: Normal ABIs bilaterally. Reviewed by: Shreyas Smith on 03/14/2021 4:32 PM PDT Approved by: Shreyas Smith on 03/14/2021 4:32 PM PDT Station ID: [id number]
== END 2021-03-14 15:04 | disposition home or self-care (01) ==
LOC: DI 15:03
PROVIDERS: ATTEND Physician Assistant Medical
DX: I83.10 Varicose veins of unspecified lower extremity with inflammation (principal)
CPT/HCPCS: 93922

== ENCOUNTER 2021-04-11 07:00 | Outpatient (CLI) | payer MEDICARE, OTHER ==
[2021-04-11 21:10] LABS: ESTIMATED AVERAGE GLUCOSE 160 mg/dL (70-100); HEMOGLOBIN A1c% 7.2 % (4.27-6.07)
== END 2021-04-11 23:59 | disposition home or self-care (01) ==
LOC: LAB 07:00
PROVIDERS: ATTEND Family Medicine
DX: E11.9 Type 2 diabetes mellitus without complications (principal)
CPT/HCPCS: 36415; 82985; 83036

== ENCOUNTER 2021-08-07 08:33 | Outpatient (CLI) | payer MEDICARE, OTHER ==
[2021-08-07 11:34] LABS: CHOL/HDL RATIO 2.6 (<5.0); CHOLESTEROL 85 mg/dL; HDL CHOLESTEROL 33 mg/dL; LDL CHOLESTEROL,CALCULATED 39 mg/dL; LDL/HDL RATIO 1.2 (<3.6); TRIGLYCERIDES 63 mg/dL; VLDL CHOLESTEROL 13 mg/dL
[2021-08-07 15:04] LABS: ESTIMATED AVERAGE GLUCOSE 163 mg/dL (70-100); HEMOGLOBIN A1c% 7.3 % (4.27-6.07)
== END 2021-08-07 08:34 | disposition home or self-care (01) ==
LOC: LAB 08:33
PROVIDERS: ATTEND Family Medicine
DX: E11.9 Type 2 diabetes mellitus without complications (principal)
CPT/HCPCS: 36415; 80061; 82985; 83036; 83721

== ENCOUNTER 2021-08-19 18:10 | Inpatient (IN) | payer MEDICARE, OTHER ==
[2021-08-19 18:49] LABS: BASOPHILS % (AUTO) 2.6 %; HCT - HEMATOCRIT 22.5 % (42.0-52.0); HGB - HEMOGLOBIN 7.7 g/dL (14.0-18.0); LYMPHOCYTES % (AUTO) 38.3 %; MEAN CORPUSCULAR HEMOGLOBIN 31.6 pg (27.0-31.0); MEAN CORPUSCULAR HGB CONC 34.2 g/dL (32.0-36.0); MEAN CORPUSCULAR VOLUME 92.2 fL (80.0-94.0); MONOCYTES % (AUTO) 6.1 %; NEUTROPHILS % (AUTO) 47.8 %; RED BLOOD COUNT 2.44 10^6/uL (4.70-6.10); RED CELL DISTRIBUTION WIDTH 15.8 % (12.0-15.0)
[2021-08-19] MEDS ORDERED: SODIUM CHLORIDE 0.9% 1,000 ML IV STA ×2 (18:50→19:30)
--- NOTE | 2021-08-19 18:57 | ED Physician Documentation ---
History of Present Illness - Stated complaint Stated Complaint: FEVER,SOA,DIARRHEA,LATHARGIC - Chief complaint Chief Complaint: General - Additonal information Additional information: 71-year-old male who has a history of myelodysplastic syndrome presents to the emergency department for evaluation of fevers chills and diarrhea. The same symptoms began on 11 August after he received a blood and plasma transfusion through the [facility]. T-max of 103.3 this afternoon. Patient is denying any changes in his baseline cough. No changes in baseline shortness of air. He has no abdominal pain but does have cramping before diarrhea. Nonbloody. No unilateral or lower extremity swelling edema. He is scheduled to follow-up on Saturday at our [facility] clinic for reevaluation and [facility] on 28 August for repeat evaluation. He recently completed his fifth cycle of chemotherapy. Fully vaccinated and boosted for COVID-19. Review of Systems Constitutional: reports: Fever, Chills, Myalgias, Fatigue Eyes: reports: Reviewed and negative Ears: reports: Reviewed and negative Nose: reports: Rhinorrhea / runny nose, Congestion Throat: reports: Reviewed and negative Cardiac: denies: Chest pain / pressure, Palpitations, Pedal edema, Calf pain Respiratory: reports: Cough. denies: Dyspnea GI: reports: Diarrhea. denies: Abdominal Pain, Nausea, Vomiting, Bloody / black stool : denies: Dysuria, Frequency, Hesitancy Skin: denies: Rash, Lesions Musculoskeletal: reports: Reviewed and negative Neurologic: reports: Reviewed and negative PD PAST MEDICAL HISTORY - Past Medical History Cardiovascular: Hypertension, High cholesterol, Deep vein thrombosis, Pulmonary embolism Respiratory: Sleep apnea, CPAP use Neuro: None Endocrine/Autoimmune: Type 2 diabetes GI: GERD (on chronic PPI), Diverticulitis (and enterocolitis April 2020) : Benign prostate hypertrophy HEENT: Chronic hearing loss Psych: None Musculoskeletal: Osteoarthritis Derm: Other (skin cancer May 2012) - Past Surgical History Past Surgical History: Yes Ortho: Rotator cuff repair, Shoulder arthroplasty Cardiovascular: Other - Present Medications Home Medications: Ambulatory Orders Medication Instructions Recorded Confirmed Fenofibrate [Lofibra] 145 mg PO QDDINNER 06/29/13 06/19/21 Metformin HCl [Fortamet] 500 mg PO TID 06/29/13 06/19/21 Simvastatin 20 mg PO DAILY 06/29/13 06/19/21 Telmisartan/Hydrochlorothiazid 1 tab PO DAILY 06/29/13 06/19/21 [Micardis Hct 80-25 mg Tablet] allopurinoL [Allopurinol] 300 mg PO DAILY 06/29/13 06/19/21 Apixaban [Eliquis] 5 mg PO BID 12/29/18 06/19/21 glipiZIDE [Glipizide] 5 mg PO DAILY 02/29/20 06/19/21 Omeprazole 20 mg PO DAILY 05/17/20 06/19/21 Potassium Chloride 20 meq PO DAILY 05/17/20 06/19/21 Prochlorperazine Maleate 10 mg PO DAILY 05/17/20 06/19/21 carvediloL [Coreg] 3.125 mg PO BID 05/17/20 06/19/21 Acyclovir [Zovirax] 400 mg PO BID 06/06/20 06/19/21 Folic Acid 1 mg PO DAILY 01/24/21 06/19/21 ondansetron HCL [Zofran] 4 mg PO Q4HR PRN 01/24/21 06/19/21 Escitalopram [Lexapro] 10 mg PO DAILY 01/25/21 06/19/21 levoFLOXacin [Levofloxacin] 750 mg PO DAILY 01/25/21 06/19/21 Sulfamethox/Trimeth 800/160 1 each PO BID #48 tablet 06/19/21 06/19/21 [Bactrim Ds 800/160] - Allergies Allergies/Adverse Reactions: Allergies Allergy/AdvReac Type Severity Reaction Status Date / Time adhesive tape Allergy Rash Verified 08/19/21 18:22 - Social History Does the pt smoke?: No Smoking Status: Never smoker Does the pt drink ETOH?: No Does the pt have substance abuse?: No - Immunizations Immunizations are current?: Yes - POLST Patient has POLST: No POLST Status: Full Code PD ED PE EXPANDED - General General: Alert, No acute distress, Well developed/nourished - Neck Neck: Supple w/out meningeal sx. No: Adenopathy - Cardiac Cardiac: Regular Rate, Radial strong equal, Cap refill < 2 sec. No: Murmur Present - Respiratory Respiratory: Clear to ausultation anyi. No: Distress, Labored - Abdomen Abdomen: Hyperactive BS, Tender to palpation - Back Back: Normal exam - Derm Derm: Normal color, Warm and dry. No: Rash - Extremities Extremities: Normal. No: Deformity, Tenderness - Neuro Neuro: Alert and Oriented X 3, CNII-XII intact - GCS Eye Opening: Spontaneous Motor: Obeys Commands Verbal: Oriented Total: 15 Results - Vitals Vitals: Vital Signs - 24 hr 08/19/21 08/19/21 08/19/21 18:16 18:49 19:00 Temperature 36.7 C Heart Rate 99 94 90 Respiratory 18 24 Rate Blood Pressure 102/59 L 131/65 H 130/70 O2 Saturation 96 99 99 08/19/21 19:30 Temperature Heart Rate 82 Respiratory 25 H Rate Blood Pressure 127/60 O2 Saturation 97 Oxygen O2 Source Room air - Labs Labs: Laboratory Tests 08/19/21 08/19/21 08/19/21 18:30 18:36 18:36 WBC 1.2 L* RBC 2.44 L Hgb 7.7 L Hct 22.5 L MCV 92.2 MCH 31.6 H MCHC 34.2 RDW 15.8 H Plt Count 34 L* MPV 10.0 Neut # (Auto) Not Reportable Lymph # (Auto) Not Reportable Dubois # (Auto) Not Reportable Eos # (Auto) Not Reportable Baso # (Auto) Not Reportable Absolute Nucleated RBC Not Reportable Total Counted 100 Band Neuts % (Manual) 0 Abnorm Lymph % (Manual) 2 Blast Cells % 1 H* Nucleated RBC % Not Reportable Neutrophils # (Manual) 0.5 L* Lymphocytes # (Manual) 0.6 L Monocytes # (Manual) 0.0 Eosinophils # (Manual) 0.0 Basophils # (Manual) 0.0 Differential Comment MANUAL DIFFERENTIAL Platelet Estimate DECREASED (<130,000) Platelet Morphology NORMAL APPEARANCE RBC Morph Micro Appear NORMAL APPEARANCE Sodium 132 L Potassium 3.6 Chloride 99 L Carbon Dioxide 21 Anion Gap 12.0 BUN 41 H Creatinine 1.6 H Estimated GFR (MDRD) 43 L Glucose 165 H Lactic Acid Calcium 8.6 Phosphorus Magnesium Total Bilirubin 1.4 H AST 81 H ALT 68 H Alkaline Phosphatase 105 Total Protein 6.6 L Albumin 3.6 Globulin 3.0 Albumin/Globulin Ratio 1.2 Nasal Adenovirus (PCR) NOT DETECTED Nasal B. parapertussis DNA (PCR) NOT DETECTED Nasal Coronavir 229E PCR NOT DETECTED Nasal Coronavir HKU1 PCR NOT DETECTED Nasal Coronavir NL63 PCR NOT DETECTED Nasal Coronavir OC43 PCR NOT DETECTED Nasal Enterovir/Rhinovir PCR NOT DETECTED Nasal Influenza B PCR NOT DETECTED Nasal Influenza A PCR NOT DETECTED Nasal Parainfluen 1 PCR NOT DETECTED Nasal Parainfluen 2 PCR NOT DETECTED Nasal Parainfluen 3 PCR NOT DETECTED Nasal Parainfluen 4 PCR NOT DETECTED Nasal RSV (PCR) NOT DETECTED Nasal B.pertussis DNA PCR NOT DETECTED Nasal C.pneumoniae (PCR) NOT DETECTED Tin Human Metapneumo PCR NOT DETECTED Nasal M.pneumoniae (PCR) NOT DETECTED Nasal SARS-CoV-2 (PCR) NOT DETECTED 08/19/21 08/19/21 18:36 18:36 WBC RBC Hgb Hct MCV MCH MCHC RDW Plt Count MPV Neut # (Auto) Lymph # (Auto) Dubois # (Auto) Eos # (Auto) Baso # (Auto) Absolute Nucleated RBC Total Counted Band Neuts % (Manual) Abnorm Lymph % (Manual) Blast Cells % Nucleated RBC % Neutrophils # (Manual) Lymphocytes # (Manual) Monocytes # (Manual) Eosinophils # (Manual) Basophils # (Manual) Differential Comment Platelet Estimate Platelet Morphology RBC Morph Micro Appear Sodium Potassium Chloride Carbon Dioxide Anion Gap BUN Creatinine Estimated GFR (MDRD) Glucose Lactic Acid 1.0 Calcium Phosphorus 2.0 L Magnesium 2.0 Total Bilirubin AST ALT Alkaline Phosphatase Total Protein Albumin Globulin Albumin/Globulin Ratio Nasal Adenovirus (PCR) Nasal B. parapertussis DNA (PCR) Nasal Coronavir 229E PCR Nasal Coronavir HKU1 PCR Nasal Coronavir NL63 PCR Nasal Coronavir OC43 PCR Nasal Enterovir/Rhinovir PCR Nasal Influenza B PCR Nasal Influenza A PCR Nasal Parainfluen 1 PCR Nasal Parainfluen 2 PCR Nasal Parainfluen 3 PCR Nasal Parainfluen 4 PCR Nasal RSV (PCR) Nasal B.pertussis DNA PCR Nasal C.pneumoniae (PCR) Tin Human Metapneumo PCR Nasal M.pneumoniae (PCR) Nasal SARS-CoV-2 (PCR) - Rads (name of study) cxr Radiology: Final report received (Small right basilar opacity may represent chronic scarring or recurrent pneumonia.) PD MEDICAL DECISION MAKING - ED course Complexity details: reviewed old records, reviewed results, re-evaluated patient, d/w patient, d/w alliances consultant (Aster) ED course: 71 year old male here with cc of fever for one week and diarrhea and generalized weakness. he has myelodysplastic syndrome and is undergoing chemo through [facility]. - pt presents as neutropenic; wbc 1.2. neutrophils 0.5 - blood cx pending; stool pending for c-diff. UA pending. Negative for Covid 19 - CXR without focal opacity - lactic is negative. Abdomen is non tender - labs reveal elevated Bun and Cr c/w dehydration; 2 liter crystalloid ordered in the ED - given neutropenic fever, pt was started on vancomycin and cefepime. I consulted with Dr. Aster gonzalez/onc promotions director with [facility]. he recommends in patient admission for further treatment of this - pt and family notified of plan to admit and in agreement - I have spoken with Dr. Villatoro who agrees to admit the patient Departure - Departure Disposition: 66 [facility] DC/[facility] Clinical Impression: Fever and neutropenia, Myelodysplastic syndrome
[2021-08-19 19:01] LABS: WHITE BLOOD COUNT 1.2 x10^3/uL (4.8-10.8)
[2021-08-19 19:03] LABS: PLT - PLATELET COUNT 34 10^3/uL (130-450)
[2021-08-19 19:05] LABS: BAND NEUTROPHILS % (MANUAL) 0 %
--- NOTE | 2021-08-19 19:06 | XRAY Report ---
PROCEDURE: Chest 1 View X-Ray INDICATIONS: chest pain TECHNIQUE: One view of the chest was acquired. COMPARISON: Chest regressed 11/30/2020 and 11/25/2020 FINDINGS: Surgical changes and devices: A left chest port is seen in stable position. Lungs and pleura: No pleural effusions or pneumothorax. Right basilar opacity appears similar when c ompared to the prior radiographs from 11/30/2020, possibly representing chronic scarring. Lung marking s are otherwise unchanged. Mediastinum: Mediastinal contours appear normal. Heart size is normal. Bones and chest wall: No suspicious bony lesions. Overlying soft tissues appear unremarkable. IMPRESSION: Small right basilar opacity may represent chronic scarring or recurrent pneumonia. Reviewed by: Reza Sneed MD on 08/19/2021 7:05 PM [facility] Approved by: Reza Sneed MD on 08/19/2021 7:05 PM PST Station ID: [id number]
[2021-08-19 19:11] LABS: ALBUMIN 3.6 g/dL (3.2-5.5); ALBUMIN/GLOBULIN RATIO 1.2 (1.0-2.2); BILIRUBIN,TOTAL 1.4 mg/dL (0.2-1.0); CALCIUM 8.6 mg/dL (8.5-10.3); CREATININE 1.6 mg/dL (0.6-1.2); POTASSIUM 3.6 mmol/L (3.5-5.0); TOTAL PROTEIN 6.6 g/dL (6.7-8.2)
[2021-08-19 19:27] LABS: ABNORMAL LYMPHS % (MANUAL) 2 %; BASOPHILS % (MANUAL) 2 %; BLAST CELLS % (MANUAL) 1 %; LYMPHOCYTES # (MANUAL) 0.6 10^3/uL (1.5-3.5); LYMPHOCYTES % (MANUAL) 50 %; NEUTROPHILS # (MANUAL) 0.5 10^3/uL (1.5-6.6)
[2021-08-19 19:30] LABS: PLATELET MORPHOLOGY NORMAL APPEARANCE (NORMAL); RBC MORPHOLOGY (MULTIPLE) NORMAL APPEARANCE (NORMAL)
[2021-08-19 19:31] LABS: PLATELET ESTIMATE, MANUAL DECREASED (<130,000) (NORMAL)
[2021-08-19 19:33] LABS: DIFFERENTIAL COMMENT MANUAL DIFFERENTIAL
[2021-08-19 19:40] LABS: B. PARAPERTUSSIS- RESP PCR PAN NOT DETECTED; B. PERTUSSIS- RESP PCR PANEL NOT DETECTED; C. PNEUMONIAE- RESP PCR PANEL NOT DETECTED; CORONAVIRUS 229E-RESP PCR NOT DETECTED; CORONAVIRUS HKU1-RESP PCR NOT DETECTED; CORONAVIRUS NL63-RESP PCR NOT DETECTED; CORONAVIRUS OC43-RESP PCR NOT DETECTED; HUMAN METAPNEUMOVIRUS NOT DETECTED; INFLUENZA A- RESP PCR PANEL NOT DETECTED; INFLUENZA B - RESP PCR PANEL NOT DETECTED; M. PNEUMONIAE- RESP PCR PANEL NOT DETECTED; PARAINFLUENZA VIRUS 1 NOT DETECTED; PARAINFLUENZA VIRUS 2 NOT DETECTED; PARAINFLUENZA VIRUS 3 NOT DETECTED; PARAINFLUENZA VIRUS 4 NOT DETECTED; RHINOVIRUS/ENTEROVIRUS NOT DETECTED; RSV- RESP PCR PANEL NOT DETECTED; SARS-CoV-2 -RESP PCR PANEL NOT DETECTED
[2021-08-19] MEDS ORDERED: VANCOMYCIN INJ 1.5 GM in SODIUM CHLORIDE 0.9% 500 ML IV STA (19:52)
[2021-08-19] MEDS ORDERED: CEFEPIME 2 GM in SODIUM CHLORIDE 0.9% MINIBAG 100 ML IV STA (19:53)
[2021-08-19] MEDS ORDERED: ONDANSETRON 4 MG/2 ML VIAL IVP PRN (20:00)
[2021-08-19] MEDS ORDERED: ONDANSETRON ODT 4 MG TABLET TL PRN (20:00)
--- NOTE | 2021-08-19 20:08 | HISTORY & PHYSICAL EXAMINATION ---
Chief Complaint - Chief Complaint Chief Complaint: Fever History of Present Illness - Admitted From Admitted From:: Home - History Obtained From Records Reviewed: Yes History obtained from: Patient, ER Provider, EMR - History of Present Illness HPI Comment/Other: This is a 71-year-old male with a past medical history significant for type 2 diabetes mellitus, MDS, pancytopenia, history of PE on Eliquis who presents today due to fever. He is currently being treated at the [facility] as well as the [facility] in [place]. He was recently started on a study drug called LX 148. This is in combination with azacitidine. He is scheduled to follow-up at the [facility] this Saturday. He states that he has had general weakness and diarrhea since beginning chemotherapy months ago. Over the past week he has had worsening of his fatigue and diarrhea. He has had fevers as high as 103 F. He has also had rigors and chills. No sore throat, nasal congestion, chest pain, dyspnea, cough. He reports no dysuria, urgency, frequency. He states he feels otherwise fine except for the fatigue and fever/chills. He states he is currently taking Eliquis due to history of DVT and pulmonary embolism. He is also on antibiotic prophylaxis but cannot recall which one. He was started on antifungal but has not begun to take this for prophylaxis as no local pharmacy had available for the next few days. We discussed goals of care and he would like to be a full code. History - Past Medical History Cardiovascular: reports: Hypertension, High cholesterol, Deep vein thrombosis, Pulmonary embolism Respiratory: reports: Sleep apnea, CPAP use Neuro: reports: None Endocrine/Autoimmune: reports: Type 2 diabetes GI: reports: GERD (on chronic PPI), Diverticulitis (and enterocolitis April 2020) : reports: Benign prostate hypertrophy HEENT: reports: Chronic hearing loss Psych: reports: None Musculoskeletal: reports: Osteoarthritis Derm: reports: Other (skin cancer May 2012) MRSA Hx?: No Other Past Medical History: MDS - Past Surgical History Ortho: reports: Rotator cuff repair, Shoulder arthroplasty Cardiovascular: reports: Other - Family & Social History Family History Comment/Other: Dad of complications of black lung. He was a smoker, drinker, had diabetes, high blood pressure, and heart disease. Mom has survived breast cancer and has diabetes. Living arrangement: At home Living Situation: With spouse/s.o. 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 Retired in 2017. He smoked briefly in his early 20s. Denies any alcohol or illicit drug use. - Substance History Use: Uses substance without health or social issues: NONE - POLST Patient has POLST: No POLST Status: Full Code Meds/Allgy - Home Medications Home Medications: Ambulatory Orders Medication Instructions Recorded Confirmed Fenofibrate [Lofibra] 145 mg PO QDDINNER 06/29/13 06/19/21 Metformin HCl [Fortamet] 500 mg PO TID 06/29/13 06/19/21 Simvastatin 20 mg PO DAILY 06/29/13 06/19/21 Telmisartan/Hydrochlorothiazid 1 tab PO DAILY 06/29/13 06/19/21 [Micardis Hct 80-25 mg Tablet] allopurinoL [Allopurinol] 300 mg PO DAILY 06/29/13 06/19/21 Apixaban [Eliquis] 5 mg PO BID 12/29/18 06/19/21 glipiZIDE [Glipizide] 5 mg PO DAILY 02/29/20 06/19/21 Omeprazole 20 mg PO DAILY 05/17/20 06/19/21 Potassium Chloride 20 meq PO DAILY 05/17/20 06/19/21 Prochlorperazine Maleate 10 mg PO DAILY 05/17/20 06/19/21 carvediloL [Coreg] 3.125 mg PO BID 05/17/20 06/19/21 Acyclovir [Zovirax] 400 mg PO BID 06/06/20 06/19/21 Folic Acid 1 mg PO DAILY 01/24/21 06/19/21 ondansetron HCL [Zofran] 4 mg PO Q4HR PRN 01/24/21 06/19/21 Escitalopram [Lexapro] 10 mg PO DAILY 01/25/21 06/19/21 levoFLOXacin [Levofloxacin] 750 mg PO DAILY 01/25/21 06/19/21 Sulfamethox/Trimeth 800/160 1 each PO BID #48 tablet 06/19/21 06/19/21 [Bactrim Ds 800/160] - Allergies Allergies/Adverse Reactions: Allergies Allergy/AdvReac Type Severity Reaction Status Date / Time adhesive tape Allergy Rash Verified 08/19/21 18:22 Review of Systems - Constitutional Constitutional: reports: Fatigue, Fever, Chills, Malaise, Weakness, Poor appetite - Ears, Nose & Throat Ears, Nose & Throat: denies: Nasal discharge, Nasal congestion, Sore throat - Cardiovascular Cariovascular: denies: Chest pain, Edema - Respiratory Respiratory: denies: Cough, Sputum production, SOB at rest, SOB with exertion - Gastrointestinal Gastrointestinal: reports: Diarrhea, Change in bowel habits. denies: Abdominal pain, Constipation, Nausea, Vomiting - Genitourinary Genitourinary: denies: Dysuria, Frequency, Urgency, Hematuria - Musculoskeletal Musculoskeletal: denies: Muscle pain - Integumentary Integumentary: denies: Rash - Neurological Neurological: reports: General weakness. denies: Focal weakness, Headache, Dizziness - Hematologic/Lymphatic Hematologic/Lymphatic: reports: Anemia, Blood clots. denies: Bruising, Petechiae, Bleeding tendencies - All Other Systems All Other Systems: reports: Reviewed and negative Prior Level of Functionality: He is independent with his ADL's. Exam - Vital Signs Reviewed Vital Signs: Yes Vital Signs: Vital Signs x48h Temp Pulse Resp BP Pulse Ox 08/19/21 19:30 82 25 H 127/60 97 08/19/21 19:00 90 24 130/70 99 08/19/21 18:49 94 131/65 H 99 08/19/21 18:16 36.7 C 99 18 102/59 L 96 - Physical Exam General Appearance: positive: Alert, Mild distress, Other (Appears ill. Rigors noted.) Eyes Bilateral: positive: Normal inspection ENT: positive: ENT inspection nml, Dry mucous membranes. negative: No signs of dehydration Neck: positive: Nml inspection Respiratory: positive: No respiratory distress, Other (Left chest wall port in place without erythema or tenderness.). negative: Wheezes, Rales Cardiovascular: positive: Regular rate & rhythm, No murmur. negative: Tachycardia Abdomen: positive: Non-tender, Nml bowel sounds, No distention. negative: Tende rness Skin: positive: Warm, Dry, Other (No erythema or evidence of cellulitis.) Extremities: positive: No pedal edema Neurologic/Psychiatric: positive: Motor nml. negative: Disoriented to person, Disoriented to place Conclusion/Plan - Problem List (1) Neutropenic fever Conclusion/Plan: He presents with fever and his only symptom is diarrhea. X-ray suggests a possible right lower lobe infiltrate versus scarring. This appears similar to the x-ray from November 2020 so this is not felt to be an infiltrate. Respiratory PCR panel is negative. Urinalysis is pending. C. difficile PCR is also pending. We will start him empirically on cefepime IV. Given lack of evidence of sepsis, we will hold off on vancomycin. We will discuss with oncology if there is a role for granulocyte colony-stimulating factor. (2) Myelodysplasia (myelodysplastic syndrome) Conclusion/Plan: He has known dysplastic syndrome currently receiving treatment with a study drug LX 148 in combination with azacitidine. He is followed by the [facility] here at the [facility] as well as the [facility]. This has been complicated by pancytopenia requiring transfusion of packed red blood cells as well as platelets. We will treat her neutropenic fever as mentioned above. Continue the antivirals and antifungal once dosing is confirmed by her pharmacy for prophylaxis. (3) Pancytopenia Conclusion/Plan: He is pancytopenic secondary to the MDS and chemotherapy he is receiving. 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 His hemoglobin at this time is greater than 7 so we will continue to monitor and transfuse as needed for goal hemoglobin greater than 7. We are managing his neutropenia as mentioned above. We will also monitor his platelet count and transfuse for a goal greater than 10,000 or if there is evidence of bleeding. (4) Acute kidney injury Conclusion/Plan: This is likely prerenal in nature secondary to volume depletion due to diarrhea. His creatinine today is 1.6 and his baseline is 1.0. We will hydrate him with normal saline and hold his home ARB/HCTZ. (5) Diarrhea Conclusion/Plan: This may be related to the chemotherapy but will need to rule out infection. C. difficile has been ordered and is pending. If the C. difficile is negative and his diarrhea persists then we will likely obtain stool cultures although low suspicion that this would be of much benefit given the lack of travel. We will hydrate him with normal saline and will add Imodium if C. difficile is negative. 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 Last oncology note recommended holding Eliquis for a platelet count less than 30. It is 34 today but over the past couple weeks it has been less than 30. We will hold Eliquis for the time being and recheck a CBC in the morning. If his platelet count remains greater than 30 then we will start Eliquis. We will transfuse for goal platelet count greater than 10,000 or if there is evidence of bleeding. (7) Type 2 diabetes mellitus, controlled Conclusion/Plan: His blood glucose is elevated greater than 160. His last A1c was just above 7% but this may not be accurate due to him requiring multiple blood transfusions for his MDS. We will start him on Lantus 10 units this evening and continue sliding scale. Carb controlled diet. Qualifiers: - Lab Results Lab results reviewed: Yes Fish Bones: 08/19/21 18:36 08/19/21 18:36 - Diagnostic Imaging Results Diagnostic Imaging Results: positive: Final report reviewed Core Measures - Anticipated LOS I expect patient to be DC'd or transferred within 96 hours.: Yes - Issues Hospital Issues and Management Plan: 71-year-old male with MDS receiving chemotherapy presents with neutropenic fever. We will admit for IV antibiotics and infectious work-up. - DVT/VTE - Prophylaxis VTE/DVT Device ordered at admit?: Yes VTE/DVT Prophylaxis med ordered at admit?: No
[2021-08-19] MEDS ORDERED: VANCOMYCIN 1 GM VIAL ONE (20:27)
[2021-08-19] MEDS: INSULIN ASPART 300 UNIT/3 ML PEN SUBQ SCH (21:04)
[2021-08-19] MEDS: INSULIN GLARGINE 300 UNIT/3 ML PEN SUBQ SCH (21:15)
[2021-08-19] MEDS ORDERED: NEUTRA-PHOS 250 MG TABLET PO SCH (22:00)
[2021-08-19] MEDS: SODIUM CHLORIDE FLUSH 0.9% 10 ML SYRINGE IVP PRN (22:44)
[2021-08-19] MEDS: SODIUM CHLORIDE 0.9% 1,000 ML IV SCH (22:44)
[2021-08-19] MEDS: SODIUM CHLORIDE FLUSH 0.9% 10 ML SYRINGE IVP SCH (23:52)
[2021-08-20 00:24] LABS: BILIRUBIN,URINE NEGATIVE (NEGATIVE); GLUCOSE, URINE (UA) NEGATIVE (NEGATIVE); KETONES,URINE (UA) NEGATIVE (NEGATIVE); LEUKOCYTE ESTERASE, URINE NEGATIVE (NEGATIVE); NITRITE,URINE NEGATIVE (NEGATIVE); OCCULT BLOOD,URINE NEGATIVE (NEGATIVE); PROTEIN,URINE NEGATIVE (NEGATIVE); UROBILINOGEN,URINE 0.2 (NORMAL) E.U./dL (NORMAL)
[2021-08-20 00:25] LABS: CLARITY,URINE CLEAR (CLEAR)
[2021-08-20 00:32] LABS: BACTERIA,URINE Rare /HPF (None Seen); CASTS, URINE 0-2 Hyaline Casts /LPF; RBC,URINE None Seen /HPF (0-5); SQUAMOUS EPITHELIAL CELL,UR RARE Squamous (<= Few); WBC,URINE 0-3 /HPF (0-3)
[2021-08-20] MEDS: CEFEPIME 2 GM in SODIUM CHLORIDE 0.9% MINIBAG 100 ML IV SCH ×3 (05:54→21:43)
[2021-08-20 05:59] LABS: BASOPHILS % (AUTO) 2.4 %; LYMPHOCYTES % (AUTO) 40.2 %; MEAN CORPUSCULAR HEMOGLOBIN 31.8 pg (27.0-31.0); MEAN CORPUSCULAR HGB CONC 34.4 g/dL (32.0-36.0); MEAN CORPUSCULAR VOLUME 92.5 fL (80.0-94.0); MEAN PLATELET VOLUME 11.9 fL (7.4-11.4); MONOCYTES % (AUTO) 7.3 %; NEUTROPHILS % (AUTO) 45.2 %; RED BLOOD COUNT 2.01 10^6/uL (4.70-6.10); RED CELL DISTRIBUTION WIDTH 15.7 % (12.0-15.0)
[2021-08-20 06:10] LABS: CALCIUM 7.8 mg/dL (8.5-10.3); CREATININE 1.4 mg/dL (0.6-1.2); MAGNESIUM 1.8 mg/dL (1.7-2.8); PHOSPHORUS 3.3 mg/dL (2.5-4.6); POTASSIUM 3.2 mmol/L (3.5-5.0)
[2021-08-20 06:23] LABS: HCT - HEMATOCRIT 18.6 % (42.0-52.0); HGB - HEMOGLOBIN 6.4 g/dL (14.0-18.0); PLT - PLATELET COUNT 26 10^3/uL (130-450); WHITE BLOOD COUNT 0.8 x10^3/uL (4.8-10.8)
[2021-08-20 06:25] LABS: ABNORMAL LYMPHS % (MANUAL) 0 %; BAND NEUTROPHILS % (MANUAL) 0 %
[2021-08-20] MEDS: PANTOPRAZOLE 40 MG TABLET PO SCH (07:00)
[2021-08-20] MEDS ORDERED: POTASSIUM CHLORIDE 20 MEQ TABLET PO ONE (07:02)
[2021-08-20 07:07] LABS: BASOPHILS % (MANUAL) 5 %; LYMPHOCYTES # (MANUAL) 0.3 10^3/uL (1.5-3.5); LYMPHOCYTES % (MANUAL) 38 %; NEUTROPHILS # (MANUAL) 0.5 10^3/uL (1.5-6.6)
[2021-08-20 07:08] LABS: DIFFERENTIAL COMMENT MANUAL DIFFERENTIAL; PLATELET ESTIMATE, MANUAL DECREASED (<130,000) (NORMAL); PLATELET MORPHOLOGY NORMAL APPEARANCE (NORMAL); WBC MORPHOLOGY (MULTIPLE) NORMAL APPEARANCE (NORMAL)
[2021-08-20] MEDS: INSULIN ASPART 300 UNIT/3 ML PEN SUBQ SCH ×4 (09:27→21:46)
[2021-08-20] MEDS: SODIUM CHLORIDE 0.9% 1,000 ML IV SCH (09:27)
[2021-08-20] MEDS: SODIUM CHLORIDE FLUSH 0.9% 10 ML SYRINGE IVP SCH ×2 (09:27→16:52)
--- NOTE | 2021-08-20 12:22 | PROVIDER PROGRESS NOTE ---
Subjective - Prog Note Date Prog Note Date: 08/20/21 Prog Note Time: 12:17 - Subjective Subjective: Up in his room. Ambulating to the bathroom on his own. I watched him wash his hands, brushes teeth. He is on some antivirals that are prophylactic. Pharmacy is in the process of verifying his home med list. Since admission his blood pressure has been stable. He has not had any fever. T-max is 37.5. He has no new complaints. No chest pain, no shortness of breath no new body rashes. Still with occasional loose stools but not as frequent. No abdominal pain Current Medications - Current Medications Current Medications: Active Medications Acetaminophen (Acetaminophen 325 Mg Tablet) 650 mg PO Q4HR PRN PRN Reason: Pain 1 to 4 Sodium Chloride (Normal Saline 0.9%) 1,000 mls @ 100 mls/hr IV .Q10H [facility] Stop: 08/20/21 15:59 Last Admin: 08/20/21 09:27 Dose: 100 mls/hr Cefepime HCl 2 gm/ Sodium (Chloride) 100 mls @ 200 mls/hr IV Q8HR [facility] Last Infusion: 08/20/21 07:16 Dose: Infused Insulin Aspart (Insulin Aspart 300 Unit/3 Ml Pen) 1 - 9 unit SUBQ 0800,1200,1700,2100 [facility]; Protocol Last Admin: 08/20/21 12:13 Dose: 1 unit Insulin Glargine (Insulin Glargine 300 Unit/3 Ml Pen) 10 unit SUBQ QPM [facility] Last Admin: 08/19/21 21:15 Dose: 10 unit Ondansetron HCl (Ondansetron Odt 4 Mg Tablet) 4 mg TL Q6HR PRN PRN Reason: Nausea / Vomiting Ondansetron HCl (Ondansetron 4 Mg/2 Ml Vial) 4 mg IVP Q6HR PRN PRN Reason: Nausea / Vomiting Pantoprazole Sodium (Pantoprazole 40 Mg Tablet) 40 mg PO QDAC [facility] Last Admin: 08/20/21 07:00 Dose: 40 mg Sodium Chloride (Sodium Chloride Flush 0.9% 10 Ml Syringe) 10 ml IVP PRN PRN PRN Reason: NEEDED PER PROVIDER ORDERS Last Admin: 08/19/21 22:44 Dose: 10 ml Sodium Chloride (Sodium Chloride Flush 0.9% 10 Ml Syringe) 10 ml IVP 0100,0900,1700 [facility] Last Admin: 08/20/21 09:27 Dose: 10 ml Sodium Phosphate (Neutra-Phos 250 Mg Tablet) 250 mg PO ONCE [facility] Stop: 08/20/21 21:59 Last Admin: 08/19/21 21:15 Dose: 250 mg Fenofibrate [Lofibra] 145 mg PO QDDINNER 06/29/13 Simvastatin 20 mg PO DAILY 06/29/13 Telmisartan/Hydrochlorothiazid [Micardis Hct 80-25 mg Tablet] 1 tab PO DAILY 06/29/13 allopurinoL [Allopurinol] 300 mg PO DAILY 06/29/13 Apixaban [Eliquis] 5 mg PO BID 12/29/18 glipiZIDE [Glipizide] 5 mg PO DAILY 02/29/20 Omeprazole 20 mg PO DAILY 05/17/20 Potassium Chloride 20 meq PO BID 05/17/20 Prochlorperazine Maleate 10 mg PO DAILY 05/17/20 carvediloL [Coreg] 3.125 mg PO BID 05/17/20 Acyclovir [Zovirax] 400 mg PO BID 06/06/20 Folic Acid 1 mg PO DAILY 01/24/21 ondansetron HCL [Zofran] 4 mg PO Q4HR PRN 01/24/21 Escitalopram [Lexapro] 10 mg PO DAILY 01/25/21 Fexofenadine HCl 180 mg PO DAILY PRN 08/20/21 Sulfamethox/Trimeth 800/160 [Bactrim Ds 800/160] 1 each PO BID 08/20/21 levoFLOXacin [Levofloxacin] 750 mg PO DAILY 08/20/21 metFORMIN [Glucophage] 1,000 mg PO BIDWM 08/20/21 Objective - Vital Signs/Intake & Output Reviewed Vital Signs: Yes Vital Signs: Vital Signs x48h Temp Pulse Resp BP Pulse Ox 08/20/21 09:00 37 C 75 17 133/54 H 98 08/20/21 05:00 37.2 C 76 16 103/42 L 97 Intake & Output: Intake & Output 08/17/21 08/18/21 08/19/21 08/20/21 23:59 23:59 23:59 23:59 Intake Total 2600 1600 Output Total 150 1825 Balance 2450 -225 - Objective General Appearance: positive: No acute distress, Alert, Other (Tall, pale, fatigued appearing white male who looks stated age) Eyes Bilateral: positive: PERRL, EOMI, Conjunctivae nml, No scleral icterus Neck: positive: No JVD. negative: Stiff neck Respiratory: positive: No respiratory distress. negative: Wheezes, Rales, Rhonchi Cardiovascular: positive: Regular rate & rhythm, No murmur. negative: Gallop/S4, Friction rub Abdomen: positive: Non-tender, No organomegaly, Nml bowel sounds, No distention Skin: positive: Warm, Dry, Pallor Extremities: positive: Full ROM, No pedal edema Neurologic/Psychiatric: positive: Oriented x3, CN's nml (2-12), Motor nml - Lab Results Fish Bones: 08/20/21 05:10 08/20/21 05:10 Other Labs: Lab Results x24hrs 08/20/21 08/20/21 08/20/21 Range/Units 11:27 07:52 05:10 WBC (4.8-10.8) x10^3/uL RBC (4.70-6.10) 10^6/uL Hgb (14.0-18.0) g/dL Hct (42.0-52.0) % MCV (80.0-94.0) fL MCH (27.0-31.0) pg MCHC (32.0-36.0) g/dL RDW (12.0-15.0) % Plt Count (130-450) 10^3/uL MPV (7.4-11.4) fL Neut # (Auto) Lymph # (Auto) [place] # (Auto) Eos # (Auto) Baso # (Auto) Absolute Nucleated RBC Total Counted Band Neuts % (Manual) (0 - 10) % Abnorm Lymph % (Manual) % Blast Cells % % Nucleated RBC % Neutrophils # (Manual) (1.5-6.6) 10^3/uL Lymphocytes # (Manual) (1.5-3.5) 10^3/uL Monocytes # (Manual) (0.0-1.0) 10^3/uL Eosinophils # (Manual) (0-0.7) 10^3/uL Basophils # (Manual) (0-0.1) 10^3/uL Differential Comment WBC Morphology (NORMAL) Platelet Estimate (NORMAL) Platelet Morphology (NORMAL) RBC Morph Micro Appear (NORMAL) Sodium 133 L (135-145) mmol/L Potassium 3.2 L (3.5-5.0) mmol/L Chloride 102 (101-111) mmol/L Carbon Dioxide 22 (21-32) mmol/L Anion Gap 9.0 (6-13) BUN 35 H (6-20) mg/dL Creatinine 1.4 H (0.6-1.2) mg/dL Estimated GFR (MDRD) 50 L (>89) Glucose 165 H (70-100) mg/dL POC Whole Bld Glucose 170 H 137 H (70 - 100) mg/dL Lactic Acid (0.5-2.2) mmol/L Calcium 7.8 L (8.5-10.3) mg/dL Phosphorus 3.3 (2.5-4.6) mg/dL Magnesium 1.8 (1.7-2.8) mg/dL Total Bilirubin (0.2-1.0) mg/dL AST (10-42) IU/L ALT (10-60) IU/L Alkaline Phosphatase (42-121) IU/L Total Protein (6.7-8.2) g/dL Albumin (3.2-5.5) g/dL Globulin (2.1-4.2) g/dL Albumin/Globulin Ratio (1.0-2.2) Urine Color Urine Clarity (CLEAR) Urine pH (5.0-7.5) PH Ur Specific Ryan (1.002-1.030) Urine Protein (NEGATIVE) mg/dL Urine Glucose (UA) (NEGATIVE) mg/dL Urine Ketones (NEGATIVE) mg/dL Urine Occult Blood (NEGATIVE) Urine Nitrite (NEGATIVE) Urine Bilirubin (NEGATIVE) Urine Urobilinogen (NORMAL) E.U./dL Ur Leukocyte Esterase (NEGATIVE) Urine RBC (0-5) /HPF Urine WBC (0-3) /HPF Ur Squamous Epith Cells (<= Few) Urine Bacteria (None Seen) /HPF Urine Casts /LPF Urine Culture Comments Nasal Adenovirus (PCR) Nasal B. parapertussis DNA (PCR) Nasal Coronavir 229E PCR Nasal Coronavir HKU1 PCR Nasal Coronavir NL63 PCR Nasal Coronavir OC43 PCR Nasal Enterovir/Rhinovir PCR Nasal Influenza B PCR Nasal Influenza A PCR Nasal Parainfluen 1 PCR Nasal Parainfluen 2 PCR Nasal Parainfluen 3 PCR Nasal Parainfluen 4 PCR Nasal RSV (PCR) Nasal B.pertussis DNA PCR Nasal C.pneumoniae (PCR) Tin Human Metapneumo PCR Nasal M.pneumoniae (PCR) Nasal SARS-CoV-2 (PCR) Stl C. diff Tox B Gene (NEGATIVE) Blood Type Antibody Screen Antibody Identification JANET, IgG Specific Crossmatch 08/20/21 08/20/21 08/20/21 Range/Units 05:10 05:10 00:09 WBC 0.8 L* (4.8-10.8) x10^3/uL RBC 2.01 L (4.70-6.10) 10^6/uL Hgb 6.4 L* (14.0-18.0) g/dL Hct 18.6 L* (42.0-52.0) % MCV 92.5 (80.0-94.0) fL MCH 31.8 H (27.0-31.0) pg MCHC 34.4 (32.0-36.0) g/dL RDW 15.7 H (12.0-15.0) % Plt Count 26 L* (130-450) 10^3/uL MPV 11.9 H (7.4-11.4) fL Neut # (Auto) Not Reportable Lymph # (Auto) Not Reportable [place] # (Auto) Not Reportable Eos # (Auto) Not Reportable Baso # (Auto) Not Reportable Absolute Nucleated RBC Not Reportable Total Counted 100 Band Neuts % (Manual) 0 (0 - 10) % Abnorm Lymph % (Manual) 0 % Blast Cells % % Nucleated RBC % Not Reportable Neutrophils # (Manual) 0.5 L* (1.5-6.6) 10^3/uL Lymphocytes # (Manual) 0.3 L (1.5-3.5) 10^3/uL Monocytes # (Manual) 0.0 (0.0-1.0) 10^3/uL Eosinophils # (Manual) 0.0 (0-0.7) 10^3/uL Basophils # (Manual) 0.0 (0-0.1) 10^3/uL Differential Comment MANUAL DIFFERENTIAL WBC Morphology NORMAL APPEARANCE (NORMAL) Platelet Estimate DECREASED (<130,000) (NORMAL) Platelet Morphology NORMAL APPEARANCE (NORMAL) RBC Morph Micro Appear 1+ HYPOCHROMASIA (NORMAL) Sodium (135-145) mmol/L Potassium (3.5-5.0) mmol/L Chloride (101-111) mmol/L Carbon Dioxide (21-32) mmol/L Anion Gap (6-13) BUN (6-20) mg/dL Creatinine (0.6-1.2) mg/dL Estimated GFR (MDRD) (>89) Glucose (70-100) mg/dL POC Whole Bld Glucose (70 - 100) mg/dL Lactic Acid (0.5-2.2) mmol/L Calcium (8.5-10.3) mg/dL Phosphorus (2.5-4.6) mg/dL Magnesium (1.7-2.8) mg/dL Total Bilirubin (0.2-1.0) mg/dL AST (10-42) IU/L ALT (10-60) IU/L Alkaline Phosphatase (42-121) IU/L Total Protein (6.7-8.2) g/dL Albumin (3.2-5.5) g/dL Globulin (2.1-4.2) g/dL Albumin/Globulin Ratio (1.0-2.2) Urine Color YELLOW Urine Clarity CLEAR (CLEAR) Urine pH 5.0 (5.0-7.5) PH Ur Specific Ryan 1.015 (1.002-1.030) Urine Protein NEGATIVE (NEGATIVE) mg/dL Urine Glucose (UA) NEGATIVE (NEGATIVE) mg/dL Urine Ketones NEGATIVE (NEGATIVE) mg/dL Urine Occult Blood NEGATIVE (NEGATIVE) Urine Nitrite NEGATIVE (NEGATIVE) Urine Bilirubin NEGATIVE (NEGATIVE) Urine Urobilinogen 0.2 (NORMAL) (NORMAL) E.U./dL Ur Leukocyte Esterase NEGATIVE (NEGATIVE) Urine RBC None Seen (0-5) /HPF Urine WBC 0-3 (0-3) /HPF Ur Squamous Epith Cells RARE Squamous (<= Few) Urine Bacteria Rare (None Seen) /HPF Urine Casts 0-2 Hyaline Casts /LPF Urine Culture Comments NOT INDICATED Nasal Adenovirus (PCR) Nasal B. parapertussis DNA (PCR) Nasal Coronavir 229E PCR Nasal Coronavir HKU1 PCR Nasal Coronavir NL63 PCR Nasal Coronavir OC43 PCR Nasal Enterovir/Rhinovir PCR Nasal Influenza B PCR Nasal Influenza A PCR Nasal Parainfluen 1 PCR Nasal Parainfluen 2 PCR Nasal Parainfluen 3 PCR Nasal Parainfluen 4 PCR Nasal RSV (PCR) Nasal B.pertussis DNA PCR Nasal C.pneumoniae (PCR) Tin Human Metapneumo PCR Nasal M.pneumoniae (PCR) Nasal SARS-CoV-2 (PCR) Stl C. diff Tox B Gene (NEGATIVE) Blood Type O NEGATIVE Antibody Screen POSITIVE Antibody Identification See Comments JANET, IgG Specific POSITIVE Crossmatch See Detail 08/19/21 08/19/21 08/19/21 Range/Units 21:03 19:53 18:36 WBC (4.8-10.8) x10^3/uL RBC (4.70-6.10) 10^6/uL Hgb (14.0-18.0) g/dL Hct (42.0-52.0) % MCV (80.0-94.0) fL MCH (27.0-31.0) pg MCHC (32.0-36.0) g/dL RDW (12.0-15.0) % Plt Count (130-450) 10^3/uL MPV (7.4-11.4) fL Neut # (Auto) Lymph # (Auto) [place] # (Auto) Eos # (Auto) Baso # (Auto) Absolute Nucleated RBC Total Counted Band Neuts % (Manual) (0 - 10) % Abnorm Lymph % (Manual) % Blast Cells % % Nucleated RBC % Neutrophils # (Manual) (1.5-6.6) 10^3/uL Lymphocytes # (Manual) (1.5-3.5) 10^3/uL Monocytes # (Manual) (0.0-1.0) 10^3/uL Eosinophils # (Manual) (0-0.7) 10^3/uL Basophils # (Manual) (0-0.1) 10^3/uL Differential Comment WBC Morphology (NORMAL) Platelet Estimate (NORMAL) Platelet Morphology (NORMAL) RBC Morph Micro Appear (NORMAL) Sodium (135-145) mmol/L Potassium (3.5-5.0) mmol/L Chloride (101-111) mmol/L Carbon Dioxide (21-32) mmol/L Anion Gap (6-13) BUN (6-20) mg/dL Creatinine (0.6-1.2) mg/dL Estimated GFR (MDRD) (>89) Glucose (70-100) mg/dL POC Whole Bld Glucose 138 H (70 - 100) mg/dL Lactic Acid (0.5-2.2) mmol/L Calcium (8.5-10.3) mg/dL Phosphorus 2.0 L (2.5-4.6) mg/dL Magnesium 2.0 (1.7-2.8) mg/dL Total Bilirubin (0.2-1.0) mg/dL AST (10-42) IU/L ALT (10-60) IU/L Alkaline Phosphatase (42-121) IU/L Total Protein (6.7-8.2) g/dL Albumin (3.2-5.5) g/dL Globulin (2.1-4.2) g/dL Albumin/Globulin Ratio (1.0-2.2) Urine Color Urine Clarity (CLEAR) Urine pH (5.0-7.5) PH Ur Specific Ryan (1.002-1.030) Urine Protein (NEGATIVE) mg/dL Urine Glucose (UA) (NEGATIVE) mg/dL Urine Ketones (NEGATIVE) mg/dL Urine Occult Blood (NEGATIVE) Urine Nitrite (NEGATIVE) Urine Bilirubin (NEGATIVE) Urine Urobilinogen (NORMAL) E.U./dL Ur Leukocyte Esterase (NEGATIVE) Urine RBC (0-5) /HPF Urine WBC (0-3) /HPF Ur Squamous Epith Cells (<= Few) Urine Bacteria (None Seen) /HPF Urine Casts /LPF Urine Culture Comments Nasal Adenovirus (PCR) Nasal B. parapertussis DNA (PCR) Nasal Coronavir 229E PCR Nasal Coronavir HKU1 PCR Nasal Coronavir NL63 PCR Nasal Coronavir OC43 PCR Nasal Enterovir/Rhinovir PCR Nasal Influenza B PCR Nasal Influenza A PCR Nasal Parainfluen 1 PCR Nasal Parainfluen 2 PCR Nasal Parainfluen 3 PCR Nasal Parainfluen 4 PCR Nasal RSV (PCR) Nasal B.pertussis DNA PCR Nasal C.pneumoniae (PCR) Tin Human Metapneumo PCR Nasal M.pneumoniae (PCR) Nasal SARS-CoV-2 (PCR) Stl C. diff Tox B Gene NEGATIVE (NEGATIVE) Blood Type Antibody Screen Antibody Identification JANET, IgG Specific Crossmatch 08/19/21 08/19/21 08/19/21 Range/Units 18:36 18:36 18:36 WBC 1.2 L* (4.8-10.8) x10^3/uL RBC 2.44 L (4.70-6.10) 10^6/uL Hgb 7.7 L (14.0-18.0) g/dL Hct 22.5 L (42.0-52.0) % MCV 92.2 (80.0-94.0) fL MCH 31.6 H (27.0-31.0) pg MCHC 34.2 (32.0-36.0) g/dL RDW 15.8 H (12.0-15.0) % Plt Count 34 L* (130-450) 10^3/uL MPV 10.0 (7.4-11.4) fL Neut # (Auto) Not Reportable Lymph # (Auto) Not Reportable [place] # (Auto) Not Reportable Eos # (Auto) Not Reportable Baso # (Auto) Not Reportable Absolute Nucleated RBC Not Reportable Total Counted 100 Band Neuts % (Manual) 0 (0 - 10) % Abnorm Lymph % (Manual) 2 % Blast Cells % 1 H* % Nucleated RBC % Not Reportable Neutrophils # (Manual) 0.5 L* (1.5-6.6) 10^3/uL Lymphocytes # (Manual) 0.6 L (1.5-3.5) 10^3/uL Monocytes # (Manual) 0.0 (0.0-1.0) 10^3/uL Eosinophils # (Manual) 0.0 (0-0.7) 10^3/uL Basophils # (Manual) 0.0 (0-0.1) 10^3/uL Differential Comment MANUAL DIFFERENTIAL WBC Morphology (NORMAL) Platelet Estimate DECREASED (<130,000) (NORMAL) Platelet Morphology NORMAL APPEARANCE (NORMAL) RBC Morph Micro Appear NORMAL APPEARANCE (NORMAL) Sodium 132 L (135-145) mmol/L Potassium 3.6 (3.5-5.0) mmol/L Chloride 99 L (101-111) mmol/L Carbon Dioxide 21 (21-32) mmol/L Anion Gap 12.0 (6-13) BUN 41 H (6-20) mg/dL Creatinine 1.6 H (0.6-1.2) mg/dL Estimated GFR (MDRD) 43 L (>89) Glucose 165 H (70-100) mg/dL POC Whole Bld Glucose (70 - 100) mg/dL Lactic Acid 1.0 (0.5-2.2) mmol/L Calcium 8.6 (8.5-10.3) mg/dL Phosphorus (2.5-4.6) mg/dL Magnesium (1.7-2.8) mg/dL Total Bilirubin 1.4 H (0.2-1.0) mg/dL AST 81 H (10-42) IU/L ALT 68 H (10-60) IU/L Alkaline Phosphatase 105 (42-121) IU/L Total Protein 6.6 L (6.7-8.2) g/dL Albumin 3.6 (3.2-5.5) g/dL Globulin 3.0 (2.1-4.2) g/dL Albumin/Globulin Ratio 1.2 (1.0-2.2) Urine Color Urine Clarity (CLEAR) Urine pH (5.0-7.5) PH Ur Specific Ryan (1.002-1.030) Urine Protein (NEGATIVE) mg/dL Urine Glucose (UA) (NEGATIVE) mg/dL Urine Ketones (NEGATIVE) mg/dL Urine Occult Blood (NEGATIVE) Urine Nitrite (NEGATIVE) Urine Bilirubin (NEGATIVE) Urine Urobilinogen (NORMAL) E.U./dL Ur Leukocyte Esterase (NEGATIVE) Urine RBC (0-5) /HPF Urine WBC (0-3) /HPF Ur Squamous Epith Cells (<= Few) Urine Bacteria (None Seen) /HPF Urine Casts /LPF Urine Culture Comments Nasal Adenovirus (PCR) Nasal B. parapertussis DNA (PCR) Nasal Coronavir 229E PCR Nasal Coronavir HKU1 PCR Nasal Coronavir NL63 PCR Nasal Coronavir OC43 PCR Nasal Enterovir/Rhinovir PCR Nasal Influenza B PCR Nasal Influenza A PCR Nasal Parainfluen 1 PCR Nasal Parainfluen 2 PCR Nasal Parainfluen 3 PCR Nasal Parainfluen 4 PCR Nasal RSV (PCR) Nasal B.pertussis DNA PCR Nasal C.pneumoniae (PCR) Tin Human Metapneumo PCR Nasal M.pneumoniae (PCR) Nasal SARS-CoV-2 (PCR) Stl C. diff Tox B Gene (NEGATIVE) Blood Type Antibody Screen Antibody Identification JANET, IgG Specific Crossmatch 02/05/22 Range/Units 18:30 WBC (4.8-10.8) x10^3/uL RBC (4.70-6.10) 10^6/uL Hgb (14.0-18.0) g/dL Hct (42.0-52.0) % MCV (80.0-94.0) fL MCH (27.0-31.0) pg MCHC (32.0-36.0) g/dL RDW (12.0-15.0) % Plt Count (130-450) 10^3/uL MPV (7.4-11.4) fL Neut # (Auto) Lymph # (Auto) [place] # (Auto) Eos # (Auto) Baso # (Auto) Absolute Nucleated RBC Total Counted Band Neuts % (Manual) (0 - 10) % Abnorm Lymph % (Manual) % Blast Cells % % Nucleated RBC % Neutrophils # (Manual) (1.5-6.6) 10^3/uL Lymphocytes # (Manual) (1.5-3.5) 10^3/uL Monocytes # (Manual) (0.0-1.0) 10^3/uL Eosinophils # (Manual) (0-0.7) 10^3/uL Basophils # (Manual) (0-0.1) 10^3/uL Differential Comment WBC Morphology (NORMAL) Platelet Estimate (NORMAL) Platelet Morphology (NORMAL) RBC Morph Micro Appear (NORMAL) Sodium (135-145) mmol/L Potassium (3.5-5.0) mmol/L Chloride (101-111) mmol/L Carbon Dioxide (21-32) mmol/L Anion Gap (6-13) BUN (6-20) mg/dL Creatinine (0.6-1.2) mg/dL Estimated GFR (MDRD) (>89) Glucose (70-100) mg/dL POC Whole Bld Glucose (70 - 100) mg/dL Lactic Acid (0.5-2.2) mmol/L Calcium (8.5-10.3) mg/dL Phosphorus (2.5-4.6) mg/dL Magnesium (1.7-2.8) mg/dL Total Bilirubin (0.2-1.0) mg/dL AST (10-42) IU/L ALT (10-60) IU/L Alkaline Phosphatase (42-121) IU/L Total Protein (6.7-8.2) g/dL Albumin (3.2-5.5) g/dL Globulin (2.1-4.2) g/dL Albumin/Globulin Ratio (1.0-2.2) Urine Color Urine Clarity (CLEAR) Urine pH (5.0-7.5) PH Ur Specific Ryan (1.002-1.030) Urine Protein (NEGATIVE) mg/dL Urine Glucose (UA) (NEGATIVE) mg/dL Urine Ketones (NEGATIVE) mg/dL Urine Occult Blood (NEGATIVE) Urine Nitrite (NEGATIVE) Urine Bilirubin (NEGATIVE) Urine Urobilinogen (NORMAL) E.U./dL Ur Leukocyte Esterase (NEGATIVE) Urine RBC (0-5) /HPF Urine WBC (0-3) /HPF Ur Squamous Epith Cells (<= Few) Urine Bacteria (None Seen) /HPF Urine Casts /LPF Urine Culture Comments Nasal Adenovirus (PCR) NOT DETECTED Nasal B. parapertussis DNA (PCR) NOT DETECTED Nasal Coronavir 229E PCR NOT DETECTED Nasal Coronavir HKU1 PCR NOT DETECTED Nasal Coronavir NL63 PCR NOT DETECTED Nasal Coronavir OC43 PCR NOT DETECTED Nasal Enterovir/Rhinovir PCR NOT DETECTED Nasal Influenza B PCR NOT DETECTED Nasal Influenza A PCR NOT DETECTED Nasal Parainfluen 1 PCR NOT DETECTED Nasal Parainfluen 2 PCR NOT DETECTED Nasal Parainfluen 3 PCR NOT DETECTED Nasal Parainfluen 4 PCR NOT DETECTED Nasal RSV (PCR) NOT DETECTED Nasal B.pertussis DNA PCR NOT DETECTED Nasal C.pneumoniae (PCR) NOT DETECTED Tin Human Metapneumo PCR NOT DETECTED Nasal M.pneumoniae (PCR) NOT DETECTED Nasal SARS-CoV-2 (PCR) NOT DETECTED Stl C. diff Tox B Gene (NEGATIVE) Blood Type Antibody Screen Antibody Identification JANET, IgG Specific Crossmatch ABX Reporting Has patient been on IV antibiotics over the past 48 hours?: Yes Assessment/Plan - Problem List (1) Neutropenic fever Impression: He presents with fever and his only other symptom is diarrhea. X-ray suggests a possible right lower lobe infiltrate versus scarring. This appears similar to the x-ray from November 2020 so this is not felt to be an infiltrate. Respiratory PCR panel is negative. Urinalysis is negative. C. difficile PCR is also negative. We started him empirically on cefepime IV. Day #2 of that. Given lack of evidence of sepsis, we held off on vancomycin. I spoke to Oncology reinforced concrete inspector for the [facility] group and he does recommend Neupogen 480 mg SQ as a one time dose. (2) Myelodysplasia (myelodysplastic syndrome) Conclusion/Plan: He has known dysplastic syndrome currently receiving treatment with a study drug LX 148 in combination with azacitidine. He is followed by the [facility] here at the [facility] as well as the [facility]. This has been complicated by pancytopenia requiring transfusion of packed red blood cells as well as platelets. We will treat his neutropenic fever as mentioned above. Continue the antivirals and antifungal once dosing is confirmed by our pharmacy for prophylaxis. (3) Pancytopenia Conclusion/Plan: He is pancytopenic secondary to the MDS and chemotherapy he is receiving. 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 His hemoglobin on admission was greater than 7 so we continue to monitor and transfuse as needed for goal hemoglobin greater than 7. We are managing his neutropenia as mentioned above. We will also monitor his platelet count and transfuse for a goal greater than 10,000 or if there is evidence of bleeding. Admit Hgb 7.7>>6.4 and 1 unit ordered for transfusion today (4) Acute kidney injury Conclusion/Plan: This is likely prerenal in nature secondary to volume depletion due to diarrhea. His creatinine today is 1.6 and his baseline is 1.0. We are hydrating him with normal saline and holding his home ARB/HCTZ. Admit creat 1.6>>1.4 today (5) Diarrhea Conclusion/Plan: This may be related to the chemotherapy. C. difficile is negative. Since his C. difficile is negative we will see if his diarrhea persists then we will likely obtain stool cultures although low suspicion that this would be of much benefit given the lack of travel. We have hydrated him with normal saline and will add Imodium now since C. difficile is negative. 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 Last oncology note recommended holding Eliquis for a platelet count less than 30. It is 34 today but over the past couple weeks it has been less than 30. We held Eliquis for the time being and we are rechecking CBC in the mornings. If his platelet count remains greater than 30 then we will start Eliquis. Admit Platelet 34>>26 today. So no eliquis. We will transfuse for goal platelet count greater than 10,000 or if there is evidence of bleeding. (7) Type 2 diabetes mellitus, controlled, without complicaton, with mcc use of insulin. Conclusion/Plan: His blood glucose is elevated greater than 160. His last A1c was just above 7% but this may not be accurate due to him requiring multiple blood transfusions for his MDS. He uses glipizide and metformin in the outpatient setting. Here he is on Lantus 10 units in the evening and sliding scale. Carb controlled diet. August 5: 138 August 6: 137, 170 No change for now.
--- NOTE | 2021-08-20 12:41 | PHARMACY PROGRESS NOTE ---
- Best Possible Medication History Admit Date and Time: 08/19/211999 Processed by: Pharmacy Medication History completed: Yes Patient Interview: Completed Secondary Source(s): Physician records, Pharmacy records, Insurance records As the person ultimately responsible for medication therapy, providers are able to order a medication from an existing home medication list in [facility] via the "Reconcile Routine" prior to Confirmation of that medication by technical support coordinator. Such practice is discouraged except when the physician, in their clinical judgment, deems that a medical need exists for a medication without regard to previous use.
[2021-08-20] MEDS ORDERED: FILGRASTIM-SNDZ 480 MCG/0.8 ML SYRINGE SUBQ ONE (13:00)
[2021-08-20] MEDS: TAMSULOSIN 0.4 MG CAPSULE PO SCH (13:17)
[2021-08-20] MEDS: DIPHENOX/ATROPINE 2.5/0.025 MG TABLET PO PRN ×2 (14:25→19:51)
[2021-08-20 19:52] LABS: RED CELL DISTRIBUTION WIDTH 15.9 % (12.0-15.0)
[2021-08-20 20:12] LABS: MEAN CORPUSCULAR HEMOGLOBIN 31.2 pg (27.0-31.0); MEAN CORPUSCULAR HGB CONC 33.8 g/dL (32.0-36.0); MEAN CORPUSCULAR VOLUME 92.1 fL (80.0-94.0); MEAN PLATELET VOLUME 11.8 fL (7.4-11.4); RED BLOOD COUNT 2.15 10^6/uL (4.70-6.10)
[2021-08-20 20:18] LABS: HGB - HEMOGLOBIN 6.7 g/dL (14.0-18.0); WHITE BLOOD COUNT 1.3 x10^3/uL (4.8-10.8)
[2021-08-20 20:19] LABS: HCT - HEMATOCRIT 19.8 % (42.0-52.0)
[2021-08-20] MEDS: INSULIN GLARGINE 300 UNIT/3 ML PEN SUBQ SCH (21:42)
[2021-08-21] MEDS: SODIUM CHLORIDE FLUSH 0.9% 10 ML SYRINGE IVP SCH ×3 (01:37→16:47)
[2021-08-21 05:43] LABS: BASOPHILS % (AUTO) 1.8 %; EOSINOPHILS % (AUTO) 0.6 %; HCT - HEMATOCRIT 23.5 % (42.0-52.0); HGB - HEMOGLOBIN 7.9 g/dL (14.0-18.0); LYMPHOCYTES % (AUTO) 27.1 %; MEAN CORPUSCULAR HEMOGLOBIN 30.5 pg (27.0-31.0); MEAN CORPUSCULAR HGB CONC 33.6 g/dL (32.0-36.0); MEAN CORPUSCULAR VOLUME 90.7 fL (80.0-94.0); MEAN PLATELET VOLUME 11.9 fL (7.4-11.4); MONOCYTES % (AUTO) 4.8 %; NEUTROPHILS % (AUTO) 56.7 %; RED BLOOD COUNT 2.59 10^6/uL (4.70-6.10); RED CELL DISTRIBUTION WIDTH 15.9 % (12.0-15.0)
[2021-08-21 05:50] LABS: CALCIUM 8.1 mg/dL (8.5-10.3); CREATININE 1.1 mg/dL (0.6-1.2); MAGNESIUM 1.8 mg/dL (1.7-2.8); PHOSPHORUS 2.5 mg/dL (2.5-4.6)
[2021-08-21 05:51] LABS: PLT - PLATELET COUNT 23 10^3/uL (130-450); WHITE BLOOD COUNT 1.7 x10^3/uL (4.8-10.8)
[2021-08-21 05:52] LABS: ABNORMAL LYMPHS % (MANUAL) 0 %; BAND NEUTROPHILS % (MANUAL) 0 %
[2021-08-21 06:08] LABS: BASOPHILS % (MANUAL) 2 %; LYMPHOCYTES # (MANUAL) 0.5 10^3/uL (1.5-3.5); LYMPHOCYTES % (MANUAL) 28 %; MONOCYTES # (MANUAL) 0.1 10^3/uL (0.0-1.0); NEUTROPHILS # (MANUAL) 1.1 10^3/uL (1.5-6.6)
[2021-08-21 06:09] LABS: PLATELET MORPHOLOGY NORMAL APPEARANCE (NORMAL)
[2021-08-21 06:10] LABS: DIFFERENTIAL COMMENT MANUAL DIFFERENTIAL; PLATELET ESTIMATE, MANUAL DECREASED (<130,000) (NORMAL); WBC MORPHOLOGY (MULTIPLE) NORMAL APPEARANCE (NORMAL)
[2021-08-21] MEDS: PANTOPRAZOLE 40 MG TABLET PO SCH (06:20)
[2021-08-21] MEDS: DIPHENOX/ATROPINE 2.5/0.025 MG TABLET PO PRN ×3 (06:20→17:46)
[2021-08-21] MEDS: CEFEPIME 2 GM in SODIUM CHLORIDE 0.9% MINIBAG 100 ML IV SCH (06:21)
--- NOTE | 2021-08-21 07:45 | PROVIDER PROGRESS NOTE ---
Subjective - Prog Note Date Prog Note Date: 08/21/21 Prog Note Time: 11:30 - Subjective Subjective: terrible abd cramps today. Still with diarrhea that is chronic since this chemo started. No blood in stool. No fever. Lots of flatus. He says that he does feel better. At least he feels better than he did last week. Overall he is very tired. Exhausted just doing simple things like getting up and walking in the room. I asked him if he is back to his baseline of what he does at home. He says that he is almost there. Basically almost baseline with his chronic fatigue Objective - Vital Signs/Intake & Output Vital Signs: Vital Signs x48h Temp Pulse Pulse Resp BP BP BP 08/21/21 07:30 36.9 C 75 16 118/57 L 08/21/21 05:35 36.9 C 72 16 119/43 L 08/21/21 01:00 37.0 C 81 18 136/57 H 08/21/21 00:48 37.0 C 81 18 136/57 H Pulse Ox 08/21/21 07:30 95 08/21/21 05:35 96 08/21/21 01:00 97 08/21/21 00:48 Intake & Output: Intake & Output 08/18/21 08/19/21 08/20/21 08/21/21 23:59 23:59 23:59 23:59 Intake Total 2600 4225.334 750 Output Total 150 2125 1400 Balance 2450 2100.334 -650 - Lab Results Fish Bones: 08/21/21 05:20 08/21/21 05:20 Other Labs: Lab Results x24hrs 08/21/21 08/21/21 08/21/21 Range/Units 07:24 05:20 05:20 WBC 1.7 L* (4.8-10.8) x10^3/uL RBC 2.59 L (4.70-6.10) 10^6/uL Hgb 7.9 L (14.0-18.0) g/dL Hct 23.5 L (42.0-52.0) % MCV 90.7 (80.0-94.0) fL MCH 30.5 (27.0-31.0) pg MCHC 33.6 (32.0-36.0) g/dL RDW 15.9 H (12.0-15.0) % Plt Count 23 L* (130-450) 10^3/uL MPV 11.9 H (7.4-11.4) fL Neut # (Auto) Not Reportable Lymph # (Auto) Not Reportable [place] # (Auto) Not Reportable Eos # (Auto) Not Reportable Baso # (Auto) Not Reportable Absolute Nucleated RBC Not Reportable Total Counted 100 Band Neuts % (Manual) 0 (0 - 10) % Abnorm Lymph % (Manual) 0 % Nucleated RBC % Not Reportable Neutrophils # (Manual) 1.1 L (1.5-6.6) 10^3/uL Lymphocytes # (Manual) 0.5 L (1.5-3.5) 10^3/uL Monocytes # (Manual) 0.1 (0.0-1.0) 10^3/uL Eosinophils # (Manual) 0.0 (0-0.7) 10^3/uL Basophils # (Manual) 0.0 (0-0.1) 10^3/uL Differential Comment MANUAL DIFFERENTIAL WBC Morphology NORMAL APPEARANCE (NORMAL) Platelet Estimate DECREASED (<130,000) (NORMAL) Platelet Morphology NORMAL APPEARANCE (NORMAL) RBC Morph Micro Appear 1+ ANISOCYTOSIS (NORMAL) Sodium 133 L (135-145) mmol/L Potassium 3.0 L (3.5-5.0) mmol/L Chloride 104 (101-111) mmol/L Carbon Dioxide 21 (21-32) mmol/L Anion Gap 8.0 (6-13) BUN 32 H (6-20) mg/dL Creatinine 1.1 (0.6-1.2) mg/dL Estimated GFR (MDRD) 66 L (>89) Glucose 151 H (70-100) mg/dL POC Whole Bld Glucose 143 H (70 - 100) mg/dL Calcium 8.1 L (8.5-10.3) mg/dL Phosphorus 2.5 (2.5-4.6) mg/dL Magnesium 1.8 (1.7-2.8) mg/dL Blood Type Antibody Screen Antibody Identification JANET, IgG Specific Crossmatch 08/20/21 08/20/21 08/20/21 Range/Units 21:19 19:43 16:11 WBC 1.3 L* (4.8-10.8) x10^3/uL RBC 2.15 L (4.70-6.10) 10^6/uL Hgb 6.7 L* (14.0-18.0) g/dL Hct 19.8 L* (42.0-52.0) % MCV 92.1 (80.0-94.0) fL MCH 31.2 H (27.0-31.0) pg MCHC 33.8 (32.0-36.0) g/dL RDW 15.9 H (12.0-15.0) % Plt Count 24 L* (130-450) 10^3/uL MPV 11.8 H (7.4-11.4) fL Neut # (Auto) Lymph # (Auto) [place] # (Auto) Eos # (Auto) Baso # (Auto) Absolute Nucleated RBC Total Counted Band Neuts % (Manual) (0 - 10) % Abnorm Lymph % (Manual) % Nucleated RBC % Neutrophils # (Manual) (1.5-6.6) 10^3/uL Lymphocytes # (Manual) (1.5-3.5) 10^3/uL Monocytes # (Manual) (0.0-1.0) 10^3/uL Eosinophils # (Manual) (0-0.7) 10^3/uL Basophils # (Manual) (0-0.1) 10^3/uL Differential Comment WBC Morphology (NORMAL) Platelet Estimate (NORMAL) Platelet Morphology (NORMAL) RBC Morph Micro Appear (NORMAL) Sodium (135-145) mmol/L Potassium (3.5-5.0) mmol/L Chloride (101-111) mmol/L Carbon Dioxide (21-32) mmol/L Anion Gap (6-13) BUN (6-20) mg/dL Creatinine (0.6-1.2) mg/dL Estimated GFR (MDRD) (>89) Glucose (70-100) mg/dL POC Whole Bld Glucose 160 H 171 H (70 - 100) mg/dL Calcium (8.5-10.3) mg/dL Phosphorus (2.5-4.6) mg/dL Magnesium (1.7-2.8) mg/dL Blood Type Antibody Screen Antibody Identification JANET, IgG Specific Crossmatch 08/20/21 08/20/21 08/20/21 Range/Units 11:27 07:52 05:10 WBC (4.8-10.8) x10^3/uL RBC (4.70-6.10) 10^6/uL Hgb (14.0-18.0) g/dL Hct (42.0-52.0) % MCV (80.0-94.0) fL MCH (27.0-31.0) pg MCHC (32.0-36.0) g/dL RDW (12.0-15.0) % Plt Count (130-450) 10^3/uL MPV (7.4-11.4) fL Neut # (Auto) Lymph # (Auto) [place] # (Auto) Eos # (Auto) Baso # (Auto) Absolute Nucleated RBC Total Counted Band Neuts % (Manual) (0 - 10) % Abnorm Lymph % (Manual) % Nucleated RBC % Neutrophils # (Manual) (1.5-6.6) 10^3/uL Lymphocytes # (Manual) (1.5-3.5) 10^3/uL Monocytes # (Manual) (0.0-1.0) 10^3/uL Eosinophils # (Manual) (0-0.7) 10^3/uL Basophils # (Manual) (0-0.1) 10^3/uL Differential Comment WBC Morphology (NORMAL) Platelet Estimate (NORMAL) Platelet Morphology (NORMAL) RBC Morph Micro Appear (NORMAL) Sodium (135-145) mmol/L Potassium (3.5-5.0) mmol/L Chloride (101-111) mmol/L Carbon Dioxide (21-32) mmol/L Anion Gap (6-13) BUN (6-20) mg/dL Creatinine (0.6-1.2) mg/dL Estimated GFR (MDRD) (>89) Glucose (70-100) mg/dL POC Whole Bld Glucose 170 H 137 H (70 - 100) mg/dL Calcium (8.5-10.3) mg/dL Phosphorus (2.5-4.6) mg/dL Magnesium (1.7-2.8) mg/dL Blood Type O NEGATIVE Antibody Screen POSITIVE Antibody Identification See Comments JANET, IgG Specific POSITIVE Crossmatch See Detail Assessment/Plan - Problem List (1) Neutropenic fever Impression: He presents with fever and his only other symptom is diarrhea. X-ray suggests a possible right lower lobe infiltrate versus scarring. This appears similar to the x-ray from November 2020 so this is not felt to be an infiltrate. Respiratory PCR panel is negative. Urinalysis is negative. C. difficile PCR is also negative. We started him empirically on cefepime IV. Day #2 of that. Given lack of evidence of sepsis, we held off on vancomycin. I spoke to Oncology utilization review nurse 08/20 for the [facility] and he does recommend Neupogen 480 mg SQ as a one time dose. WBC is coming up now. He has been afebrile this entire stay.In considering de-escalation of therapy, I reviewed PMC article Infections in Netropenic Cancer Patients, 2018Feb 22. This topic used to be controversial when it comes to NPF but there is an incr easing breadth of knowledge and guidelines to support de-escalation under the auspices of antimicrobial stewardship. Per 2010 IDSA clinical guidelines, it depends on the duration of neutropenia as well as having a clinically or microbiologically documented infection [1]. In the setting of an unexplained fever, the initial therapy should be continued until there is marrow recovery i.e. ANC >500. In the case of a documented infection, therapy depends on the site of infection and or organism isolated. Antibiotics (whether prophylaxis or treatment) are continued until the ANC > 500 or if they received an appropriate duration of therapy for that particular infection, then they can be switched to prophylactic antibiotics for the remaining duration of neutropenia [1]. However there have been an increasing collection of studies and the Guidelines that recommend early de-escalation of antibiotics back to prophylaxis in cases of resolved unexplained fever. When considering this option, patients should be afebrile at least for >48 h, clinically stable, and without signs or symptoms of new infection He has been afebrile for 48 hours, and his absolute neutrophil count is 1100 today. As such I will stop antibiotics and resume his usual prophylactic medications.No source of infection has been identified. Blood cultures have been negative. Urinalysis was negative. Chest x-ray had chronic scarring of the right lung. Not really indicative of pneumonia on exam or history. Consider discharge tomorrow morning if he remains afebrile overnight. (2) Myelodysplasia (myelodysplastic syndrome) Conclusion/Plan: He has known dysplastic syndrome currently receiving treatment with a study drug [id number] in combination with azacitidine. He is followed by the [facility] here at the [facility] as well as the [facility]. This has been complicated by pancytopenia requiring transfusion of packed red blood cells as well as platelets. We treated his neutropenic fever as mentioned above. We will now resume the antivirals and antifungal since dosing is confirmed by our pharmacy for prophylaxis. (3) Pancytopenia Conclusion/Plan: He is pancytopenic secondary to the MDS and chemotherapy he is receiving. 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 His hemoglobin on admission was greater than 7 so we continue to monitor and transfuse as needed for goal hemoglobin greater than 7. We are managing his neutropenia as mentioned above. We will also monitor his platelet count and transfuse for a goal greater than 10,000 or if there is evidence of bleeding. Admit Hgb 7.7>>6.4>>6.7 and 2nd unit ordered yesterday. Today Hgb 7.4 (4) Acute kidney injury Conclusion/Plan: This is likely prerenal in nature secondary to volume depletion due to diarrhea. His creatinine today is 1.6 and his baseline is 1.0. We are hydrating him with normal saline and holding his home ARB/HCTZ. Admit creat 1.6>>1.4>>1.1 today (5) Diarrhea Conclusion/Plan: This may be related to the chemotherapy. He thinks it is. C. difficile is ne gative. Since his C. difficile is negative we will see if his diarrhea persists then we will likely obtain stool cultures although low suspicion that this would be of much benefit given the lack of travel. We have hydrated him with normal saline and we did add Imodium now since C. difficile is negative. I also did a plain film today since his cramping was new and severe. He had no evidence of bowel obstruction. No free air. He had normal stool and normal gas in the colon. 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 Last oncology note recommended holding Eliquis for a platelet count less than 30. It is 34 today but over the past couple weeks it has been less than 30. We held Eliquis for the time being and we are rechecking CBC in the mornings. If his platelet count remains greater than 30 then we will start Eliquis. Admit Platelet 34>>26>>23 today. So no eliquis. We will transfuse for goal platelet count greater than 10,000 or if there is evidence of bleeding. (7) Type 2 diabetes mellitus, controlled, without complicaton, with buttermaker continuous churn use of insulin. Conclusion/Plan: His blood glucose is elevated greater than 160. His last A1c was just above 7% but this may not be accurate due to him requiring multiple blood transfusions for his MDS. He uses glipizide and metformin in the outpatient setting. Here he is on Lantus 10 units in the evening and sliding scale. Carb controlled diet. August 5: 138 August 6: 137, 170, 171, 160 August 7: 143, 213 No change for now.
[2021-08-21] MEDS: INSULIN ASPART 300 UNIT/3 ML PEN SUBQ SCH ×4 (09:11→21:35)
[2021-08-21] MEDS: TAMSULOSIN 0.4 MG CAPSULE PO SCH (09:13)
--- NOTE | 2021-08-21 12:14 | XRAY Report ---
PROCEDURE: Abdomen 1 View X-Ray INDICATIONS: severe abd pain in neutropenic fever TECHNIQUE: 1 view of the abdomen was acquired. COMPARISON: CT of abdomen and pelvis dated 04/21/2020 FINDINGS: Surgical changes and devices: None. Bowel: No pneumoperitoneum. The bowel gas pattern is nonspecific for obstruction. Soft tissues: No masses; visualized solid organ contours appear normal in size. No suspicious abdom inal calcifications. Bones: No suspicious bony abnormalities. IMPRESSION: No evidence of bowel obstruction. No gross free air. Reviewed by: Gunner Gilman MD on 08/21/2021 12:13 PM PST Approved by: Gunner Gilman MD on 08/21/2021 12:13 PM PST Station ID: [id number]
[2021-08-21] MEDS: SULFAMETH/TRIMETH DS 800/160 MG TABLET PO SCH ×2 (13:52→21:34)
[2021-08-21] MEDS: ACYCLOVIR 200 MG CAPSULE PO SCH ×2 (13:52→21:34)
[2021-08-21] MEDS: allopurinoL 100 MG TABLET PO SCH (13:52)
[2021-08-21] MEDS: POTASSIUM CHLORIDE 20 MEQ TABLET PO SCH ×2 (14:30→21:34)
[2021-08-21] MEDS: ACETAMINOPHEN 325 MG TABLET PO PRN ×2 (17:46→21:34)
--- NOTE | 2021-08-21 17:53 | ONCOLOGY/HEMATOLOGY VISIT ---
HEME/ONC PROGRESS NOTE: CC: eBn Hughes DO. Umair Leblanc MD (at [facility] in [place]) ONCOLOGY HISTORY: 1. MDS-RAEB1 5% blasts BMX 02/2020 and 11/2020. High complexity cytogenetics: 44XY, pacheco(5;17), del(16), -18,-19,+mar[17]/46XY, t(6;13). a. IPI score 6. mOS 10months. b. Arasnesp inj 500mcg q2w. d/c 01/2021 c. Transfusion dependent initially 2 units every week. d. Azacitidine 04/2020 x 1 cycle due to drug shortage e. Decitabine iv since 06/2020 - 12/2020. Stable blast count at 5.5% blasts on repeat marrow biopsy of 11/22/2020. f. [facility] Clinical Trial (Phase 1) with study drug [id number] in combo with azacitadine 7 of 28 days/cycle. C1 01/19/21. C2 02/20/21. C3 03/27/21; C4 04/24/21; C5 06/20/2021 (delayed due to low count). g. BM Bx 06/05/21: 13% blasts by flow (previously 6%). 2. 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 CD38 expression at 68%. High risk. a. FCR x 6 Cycles in 12/2013. b. Relapse and Ibrutinib till 02/2020 due to above diagnosis. c. Most recent bone marrow biopsies continue to show <1% CLL/SLL cells on flow. 3. Vitamin B12 and FA deficiency. On monthly injection. Negative EGD colonoscopy work-up. 4. Chronic GERD; using PPI. Negative EGD and colonoscopy previously. 5. Recurrent DVT and PE. On Eliquis 5 mg twice daily. 6. Diabetes with chronic lower extremity edema. 7. History of profound dyspnea on exertion. Negative CT angiogram and echocardiography in 03/2020. ASSESSMENT/PLAN: 1. High-grade myelodysplastic syndrome with pancytopenia: Enrolled in [facility] clinical trial Phase1/2 study of [id number] (CD47 MoAb) + azacitadine initiated 01/19/2021, BM Bx 06/05/21 reveals 13% blasts by flow (prior 6%). a. Per [facility] communication, postponing 08/21/20 Vidaza + study drug @ [facility], to 08/28/21; then, rest of the Vidaza doses at . Azacitadine IV 7 days of 28 day cycle. b. Study contact Amada Mcdowell [phone] [email or web address] c. Transfusion thresholds for irradiated PRBCs: <7.0g = 2 units irradiated. Platelet 1u if count<10k or bleeding. Requiring PRBC q 2-3 weekls. CBC/T&H weekly 2. Infection prophylaxis/Prolonged grade 4 neutropenia: No infections thus far. a. Continue acyclovir, Bactrim, levofloxacin. Bactrim. b. supposed to start posaconazole 300 mg daily - pt not currently taking. working with local pharmacy to get it. 3. B12 and Folic Acid deficiency: a. B12 injection q 4 weeks, last given 12/2020. Level low at 235 (03/13/21). Resumed oral B12 1000mcg/day. Level 386 06/19/21 - follow intermittently. b. Oral Folic acid 1mg qd since 12/2020. Level normalized 01/2021. 4. Recurrent DVT/PE: Hold Eliquis if < 30K or any signs of bleeding/petechiae. 5. neutropenic fever and diarrhea. a. He is in hospital inpatient service due to above. No further fever. Neutropenia is also improving. However diarrhea continue to be a problem. Negative stool C. difficile infection on admission office 08/19/21. HISTORY OF PRESENT ILLNESS/REVIEW OF SYSTEMS: As dictated on 03/28/20 for detailed Hem/Onc history. I saw the patient in his hospital room while admitted for neutropenic fever and diarrhea. He has also received multiple units of blood products transfusion. No further fever spikes. But diarrhea ongoing. No bleeding. Hospitalist note and lab test all reviewed. [facility]: Past medical history includes diabetes, hypertension, sleep apnea. Does not use tobacco or regular alcohol. Retired. No contributing family history. Enjoys outdoor recreation and playing cards with his . Enjoys hunting. Hx of Sepsis, pneumonia and hospitalization in 11/2020. No clear microorganism identified. s/p intravenous antibiotics including vancomycin and cefepime. Zithromax. PHYSICAL EXAM: Clinical Data: Allergies adhesive tape Allergy (Verified 08/19/21 18:22) Rash Home Medications Simvastatin 20 mg PO DAILY 06/29/13 [History Last Taken 04/16/14 22:03 20] Telmisartan/Hydrochlorothiazid [Micardis Hct 80-25 mg Tablet] 1 tab PO DAILY 06/29/13 [History Last Taken 04/17/14 08:00 1] allopurinoL [Allopurinol] 300 mg PO DAILY 06/29/13 [History Last Taken 04/17/14 08:00] Apixaban [Eliquis] 5 mg PO BID 12/29/18 [History Last Taken Unknown] Omeprazole 20 mg PO DAILY 05/17/20 [History Last Taken Unknown] Potassium Chloride 20 meq PO BID 05/17/20 [History Last Taken Unknown] carvediloL [Coreg] 3.125 mg PO BID 05/17/20 [History Last Taken Unknown] Acyclovir [Zovirax] 400 mg PO BID 06/06/20 [History Last Taken Unknown] Folic Acid 1 mg PO DAILY 01/24/21 [History Last Taken Unknown] Fexofenadine HCl 180 mg PO DAILY PRN 08/20/21 [History Last Taken Unknown] Sulfamethox/Trimeth 800/160 [Bactrim Ds 800/160] 1 each PO BID 08/20/21 [History Last Taken Unknown] metFORMIN [Glucophage] 1,000 mg PO BIDWM 08/20/21 [History Last Taken Unknown] Vital Signs Temp Pulse Resp BP Pulse Ox 36.8 C 69 20 118/47 L 99 08/21/21 15:41 08/21/21 15:41 08/21/21 15:41 08/21/21 15:41 08/21/21 15:41 Recent Lab Results 08/19/21 18:30: Nasal Adenovirus (PCR) NOT DETECTED, Nasal B. parapertussis DNA (PCR) NOT DETECTED, Nasal Coronavir 229E PCR NOT DETECTED, Nasal Coronavir HKU1 PCR NOT DETECTED, Nasal Coronavir NL63 PCR NOT DETECTED, Nasal Coronavir OC43 PCR NOT DETECTED, Nasal Enterovir/Rhinovir PCR NOT DETECTED, Nasal Influenza B PCR NOT DETECTED, Nasal Influenza A PCR NOT DETECTED, Nasal Parainfluen 1 PCR NOT DETECTED, Nasal Parainfluen 2 PCR NOT DETECTED, Nasal Parainfluen 3 PCR NOT DETECTED, Nasal Parainfluen 4 PCR NOT DETECTED, Nasal RSV (PCR) NOT DETECTED, Nasal B.pertussis DNA PCR NOT DETECTED, Nasal C.pneumoniae (PCR) NOT DETECTED, Tin Human Metapneumo PCR NOT DETECTED, Nasal M.pneumoniae (PCR) NOT DETECTED, Nasal SARS-CoV-2 (PCR) NOT DETECTED 08/19/21 18:36: WBC 1.2 L*, RBC 2.44 L, Hgb 7.7 L, Hct 22.5 L, MCV 92.2, MCH 31.6 H, MCHC 34.2, RDW 15.8 H, Plt Count 34 L*, MPV 10.0, Neut # (Auto) Not Reportable, Lymph # (Auto) Not Reportable, [place] # (Auto) Not Reportable, Eos # (Auto) Not Reportable, Baso # (Auto) Not Reportable, Absolute Nucleated RBC Not Reportable, Total Counted 100, Band Neuts % (Manual) 0, Abnorm Lymph % (Manual) 2, Blast Cells % 1 H*, Nucleated RBC % Not Reportable, Neutrophils # (Manual) 0.5 L*, Lymphocytes # (Manual) 0.6 L, Monocytes # (Manual) 0.0, Eosinophils # (Manual) 0.0, Basophils # (Manual) 0.0, Differential Comment MANUAL DIFFERENTIAL, Platelet Estimate DECREASED (<130,000), Platelet Morphology NORMAL APPEARANCE, RBC Morph Micro Appear NORMAL APPEARANCE 08/19/21 18:36: Sodium 132 L, Potassium 3.6, Chloride 99 L, Carbon Dioxide 21, Anion Gap 12.0, BUN 41 H, Creatinine 1.6 H, Estimated GFR (MDRD) 43 L, Glucose 165 H, Calcium 8.6, Total Bilirubin 1.4 H, AST 81 H, ALT 68 H, Alkaline Phosphatase 105, Total Protein 6.6 L, Albumin 3.6, Globulin 3.0, Albumin/Globulin Ratio 1.2 08/19/21 18:36: Lactic Acid 1.0 08/19/21 18:36: Phosphorus 2.0 L, Magnesium 2.0 08/19/21 19:53: Stl C. diff Tox B Gene NEGATIVE 08/19/21 21:03: POC Whole Bld Glucose 138 H 08/20/21 00:09: Urine Color YELLOW, Urine Clarity CLEAR, Urine pH 5.0, Ur Specific [place] 1.015, Urine Protein NEGATIVE, Urine Glucose (UA) NEGATIVE, Urine Ketones NEGATIVE, Urine Occult Blood NEGATIVE, Urine Nitrite NEGATIVE, Urine Bilirubin NEGATIVE, Urine Urobilinogen 0.2 (NORMAL), Ur Leukocyte Esterase NEGATIVE, Urine RBC None Seen, Urine WBC 0-3, Ur Squamous Epith Cells RARE Squamous, Urine Bacteria Rare, Urine Casts 0-2 Hyaline Casts, Urine Culture Comments NOT INDICATED 08/20/21 05:10: Blood Type O NEGATIVE, Antibody Screen POSITIVE, Antibody Identification See Comments, JANET, IgG Specific POSITIVE, JANET, Polyspecific Not Reportable, JANET, C3d Specific NEGATIVE, Crossmatch See Detail 08/20/21 05:10: WBC 0.8 L*, RBC 2.01 L, Hgb 6.4 L*, Hct 18.6 L*, MCV 92.5, MCH 31.8 H, MCHC 34.4, RDW 15.7 H, Plt Count 26 L*, MPV 11.9 H, Neut # (Auto) Not Reportable, Lymph # (Auto) Not Reportable, [place] # (Auto) Not Reportable, Eos # (Auto) Not Reportable, Baso # (Auto) Not Reportable, Absolute Nucleated RBC Not Reportable, Total Counted 100, Band Neuts % (Manual) 0, Abnorm Lymph % (Manual) 0, Nucleated RBC % Not Reportable, Neutrophils # (Manual) 0.5 L*, Lymphocytes # (Manual) 0.3 L, Monocytes # (Manual) 0.0, Eosinophils # (Manual) 0.0, Basophils # (Manual) 0.0, Differential Comment MANUAL DIFFERENTIAL, WBC Morphology NORMAL APPEARANCE, Platelet Estimate DECREASED (<130,000), Platelet Morphology NORMAL APPEARANCE, RBC Morph Micro Appear 1+ HYPOCHROMASIA 08/20/21 05:10: Sodium 133 L, Potassium 3.2 L, Chloride 102, Carbon Dioxide 22, Anion Gap 9.0, BUN 35 H, Creatinine 1.4 H, Estimated GFR (MDRD) 50 L, Glucose 165 H, Calcium 7.8 L, Phosphorus 3.3, Magnesium 1.8 08/20/21 07:52: POC Whole Bld Glucose 137 H 08/20/21 11:27: POC Whole Bld Glucose 170 H 08/20/21 16:11: POC Whole Bld Glucose 171 H 08/20/21 19:43: WBC 1.3 L*, RBC 2.15 L, Hgb 6.7 L*, Hct 19.8 L*, MCV 92.1, MCH 31.2 H, MCHC 33.8, RDW 15.9 H, Plt Count 24 L*, MPV 11.8 H 08/20/21 21:19: POC Whole Bld Glucose 160 H 08/21/21 05:20: WBC 1.7 L*, RBC 2.59 L, Hgb 7.9 L, Hct 23.5 L, MCV 90.7, MCH 30.5, MCHC 33.6, RDW 15.9 H, Plt Count 23 L*, MPV 11.9 H, Neut # (Auto) Not Reportable, Lymph # (Auto) Not Reportable, [place] # (Auto) Not Reportable, Eos # (Auto) Not Reportable, Baso # (Auto) Not Reportable, Absolute Nucleated RBC Not Reportable, Total Counted 100, Band Neuts % (Manual) 0, Abnorm Lymph % (Manual) 0, Nucleated RBC % Not Reportable, Neutrophils # (Manual) 1.1 L, Lymphocytes # (Manual) 0.5 L, Monocytes # (Manual) 0.1, Eosinophils # (Manual) 0.0, Basophils # (Manual) 0.0, Differential Comment MANUAL DIFFERENTIAL, WBC Morphology NORMAL APPEARANCE, Platelet Estimate DECREASED (<130,000), Platelet Morphology NORMAL APPEARANCE, RBC Morph Micro Appear 1+ ANISOCYTOSIS 08/21/21 05:20: Sodium 133 L, Potassium 3.0 L, Chloride 104, Carbon Dioxide 21, Anion Gap 8.0, BUN 32 H, Creatinine 1.1, Estimated GFR (MDRD) 66 L, Glucose 151 H, Calcium 8.1 L, Phosphorus 2.5, Magnesium 1.8 08/21/21 07:24: POC Whole Bld Glucose 143 H 08/21/21 11:59: POC Whole Bld Glucose 213 H 08/21/21 16:31: POC Whole Bld Glucose 215 H
[2021-08-21] MEDS: INSULIN GLARGINE 300 UNIT/3 ML PEN SUBQ SCH (21:35)
[2021-08-22] MEDS: SODIUM CHLORIDE FLUSH 0.9% 10 ML SYRINGE IVP SCH ×4 (00:30→23:33)
[2021-08-22 06:08] LABS: MAGNESIUM 1.8 mg/dL (1.7-2.8); PHOSPHORUS 2.6 mg/dL (2.5-4.6); POTASSIUM 2.9 mmol/L (3.5-5.0)
[2021-08-22 06:11] LABS: BASOPHILS % (AUTO) 3.3 %; EOSINOPHILS % (AUTO) 4.4 %; HCT - HEMATOCRIT 21.3 % (42.0-52.0); HGB - HEMOGLOBIN 7.2 g/dL (14.0-18.0); LYMPHOCYTES % (AUTO) 31.9 %; MEAN CORPUSCULAR HGB CONC 33.8 g/dL (32.0-36.0); MEAN CORPUSCULAR VOLUME 91.8 fL (80.0-94.0); MONOCYTES % (AUTO) 5.5 %; NEUTROPHILS % (AUTO) 47.2 %; RED BLOOD COUNT 2.32 10^6/uL (4.70-6.10); RED CELL DISTRIBUTION WIDTH 16.1 % (12.0-15.0)
[2021-08-22 06:14] LABS: PLT - PLATELET COUNT 21 10^3/uL (130-450); WHITE BLOOD COUNT 0.9 x10^3/uL (4.8-10.8)
[2021-08-22 06:15] LABS: ABNORMAL LYMPHS % (MANUAL) 0 %
[2021-08-22 06:28] LABS: BAND NEUTROPHILS % (MANUAL) 1 %; BASOPHILS % (MANUAL) 1 %; EOSINOPHILS # (MANUAL) 0.1 10^3/uL (0-0.7); LYMPHOCYTES # (MANUAL) 0.3 10^3/uL (1.5-3.5); LYMPHOCYTES % (MANUAL) 28 %; NEUTROPHILS # (MANUAL) 0.6 10^3/uL (1.5-6.6)
[2021-08-22 06:29] LABS: DIFFERENTIAL COMMENT MANUAL DIFFERENTIAL; PLATELET ESTIMATE, MANUAL DECREASED (<130,000) (NORMAL); PLATELET MORPHOLOGY NORMAL APPEARANCE (NORMAL); WBC MORPHOLOGY (MULTIPLE) NORMAL APPEARANCE (NORMAL)
[2021-08-22] MEDS: PANTOPRAZOLE 40 MG TABLET PO SCH (06:29)
[2021-08-22] MEDS: POTASSIUM CHLORIDE 20 MEQ TABLET PO SCH ×3 (06:29→20:36)
--- NOTE | 2021-08-22 07:58 | PROVIDER PROGRESS NOTE ---
Assessment/Plan - Problem List (1) Neutropenic fever Assessment/Plan: White blood cell count dropped from 1.7 yesterday down to 0.9 today. Patient spiked a temperature of 38.2 C today. As a result Bactrim was discontinued and patient was resumed on cefepime 2 g every 8 hours IV. Blood cultures were drawn prior to IV antibiotic administration. On acyclovir 400 mg p.o. twice daily. (2) Myelodysplasia (myelodysplastic syndrome) Assessment/Plan: Patient was supposed to see Dr. Ross in the outpatient setting yesterday 08/21/2021. He was seen by Dr. Ross inpatient at [facility] His Vidaza and study drug at [facility] for 08/21 were postponed to 08/28. Then the plan after that would be to continue the rest of the Vidaza doses at the MAC clinic at [facility]. Azacitadine IV 7days of 28 day cycle Transfusion threshold for irradiated PRBCs less than 7 seconds 2 units i rradiated. Platelets 1 unit if count less than 10 or bleeding. (3) Diarrhea Qualifiers: Diarrhea type: unspecified type Qualified Code(s): R19.7 - Diarrhea, unspecified Assessment/Plan: Test for C. difficile negative on 08/19/2021. Directed to be secondary to chemotherapy Lomotil 1 tablet p.o. 4 times daily as needed ordered. CT abdomen/pelvis pending. (4) Hypokalemia Assessment/Plan: Potassium level was 2.9. Potassium chloride 20 mEq IV given. Potassium chloride 40 mEq p.o. 3 times daily ordered. (5) History of pulmonary embolus (PE) Assessment/Plan: Eliquis currently on hold due to thrombocytopenia with a platelet count of 21. (6) Type 2 diabetes mellitus, controlled Qualifiers: Assessment/Plan: Lantus 10 units subcu every afternoon. Sliding scale insulin. Accu-Cheks before every meal and at bedtime. - Current Meds Current Meds: Current Medications Generic Name Dose Route Start Last Admin Trade Name Freq PRN Reason Stop Dose Admin Acetaminophen 650 mg 08/19/21 20:00 08/21/21 21:34 Acetaminophen 325 Mg Tablet PO 650 mg Q4HR PRN Administration Pain 1 to 4 Acyclovir 400 mg 08/21/21 14:00 08/21/21 21:34 Acyclovir 200 Mg Capsule PO 400 mg BID ANUSHA Administration Allopurinol 300 mg 08/21/21 14:00 08/21/21 13:52 Allopurinol 100 Mg Tablet PO 300 mg DAILY ANUSHA Administration Diphenoxylate HCl/Atropine 1 tab 08/20/21 12:34 08/21/21 17:46 Diphenox/Atropine 2.5/0.025 Mg Tablet PO 1 tab QID PRN Administration Diarrhea Heparin Sodium (Beef Lung) 30 - 50 unit 08/20/21 15:37 08/21/21 16:47 Heparin Flush 50 Units/5 Ml Syringe IVP 50 unit PRN PRN Administration Port Protocol (<24 hours) Insulin Aspart 2 - 10 unit 08/21/21 17:00 08/21/21 21:35 Insulin Aspart 300 Unit/3 Ml Pen SUBQ 2 unit 0800,1200,1700,2100 ANUSHA Administration Protocol Insulin Glargine 10 unit 08/19/21 21:00 08/21/21 21:35 Insulin Glargine 300 Unit/3 Ml Pen SUBQ 10 unit QPM ANUSHA Administration Pantoprazole Sodium 40 mg 08/20/21 07:00 08/22/21 06:29 Pantoprazole 40 Mg Tablet PO 40 mg QDAC ANUSHA Administration Potassium Chloride 40 meq 08/21/21 14:00 08/22/21 06:29 Potassium Chloride 20 Meq Tablet PO 08/22/21 14:01 40 meq TID ANUSHA Administration Sodium Chloride 10 ml 08/19/21 20:00 08/19/21 22:44 Sodium Chloride Flush 0.9% 10 Ml Syringe IVP 10 ml PRN PRN Administration NEEDED PER PROVIDER ORDERS Sodium Chloride 10 ml 08/20/21 01:00 08/22/21 00:30 Sodium Chloride Flush 0.9% 10 Ml Syringe IVP 10 ml 0100,0900,1700 ANUSHA Administration Tamsulosin HCl 0.4 mg 08/20/21 13:00 08/21/21 09:13 Tamsulosin 0.4 Mg Capsule PO 0.4 mg DAILY ANUSHA Administration - Lab Result Fish Bone Diagrams: 08/22/21 05:18 08/22/21 05:18 - Additional Planning My Orders: My Active Orders 08/22/21 Blood Culture [CULTURE, BLOOD #1] [RM] Routine Blood Culture [CULTURE, BLOOD #2] [RM] Routine 08/22/21 08:00 Potassium Chloride/Water 10 mEq/100 mL q1h (Enter # of bags) Potassium Chlor 10 Meq/100 ml [Potassium Chloride] 10 meq in 100 ml IV Q1H 08/22/21 14:00 Cefepime 2 gm Sodium Chloride 0.9% Minibag [Normal Saline 0.9% Minibag] 100 ml IV TID Subjective - Subjective Patient Reports: Other (Resting comfortably in bed at time of exam. He complained of intermittent lower abdominal pain. At the time of the visit the pain had subsided. He spiked a temperature of 38.2 C this morning.) Objective Vital Signs: Vital Signs - 24 hr 08/21/21 08/21/21 08/21/21 11:17 15:41 20:55 Temperature 37.4 C 36.8 C 36.8 C Heart Rate [ 65 69 67 Brachial] Respiratory 20 20 20 Rate Blood Pressure 119/50 L 118/47 L 127/66 [Right Brachial artery] O2 Saturation 98 99 98 08/21/21 08/22/21 08/22/21 23:30 04:23 07:32 Temperature 36.4 C L 36.4 C L 38.2 C H Heart Rate [ 66 63 66 Brachial] Respiratory 18 20 18 Rate Blood Pressure 105/53 L 119/52 L 118/49 L [Right Brachial artery] O2 Saturation 98 100 94 Oxygen O2 Source Room air I&O (Last 24 Hrs): Intake and Output Totals x24h 08/20/21 08/21/21 08/22/21 23:59 23:59 23:59 Intake Total 4225.334 2520 Output Total 2125 1800 250 Balance 2100.334 720 -250 General: Alert, Oriented x3, Mild distress HEENT: PERRLA, EOMI Neck: Supple, No JVD Neuro: Alert, Non Focal, Oriented Times 3 Cardiovascular: Regular rate, Normal S1, Normal S2 Respiratory: Chest non-tender, No respiratory distress, Breath sounds nml Abdomen: Normal bowel sounds, Soft Extremities: No clubbing, No cyanosis, No edema Skin: No rashes, No breakdown, No significant lesion - Results Results: Laboratory Results WBC 0.9 x10^3/uL (4.8-10.8) L* 08/22/21 05:18 RBC 2.32 10^6/uL (4.70-6.10) L 08/22/21 05:18 Hgb 7.2 g/dL (14.0-18.0) L 08/22/21 05:18 Hct 21.3 % (42.0-52.0) L 08/22/21 05:18 MCV 91.8 fL (80.0-94.0) 08/22/21 05:18 MCH 31.0 pg (27.0-31.0) 08/22/21 05:18 MCHC 33.8 g/dL (32.0-36.0) 08/22/21 05:18 RDW 16.1 % (12.0-15.0) H 08/22/21 05:18 Plt Count 21 10^3/uL (130-450) L* 08/22/21 05:18 MPV 12.0 fL (7.4-11.4) H 08/22/21 05:18 Neut # (Auto) Not Reportable 08/22/21 05:18 Lymph # (Auto) Not Reportable 08/22/21 05:18 [place] # (Auto) Not Reportable 08/22/21 05:18 Eos # (Auto) Not Reportable 08/22/21 05:18 Baso # (Auto) Not Reportable 08/22/21 05:18 Absolute Nucleated RBC Not Reportable 08/22/21 05:18 Total Counted 100 08/22/21 05:18 Band Neuts % (Manual) 1 % (0-10) 08/22/21 05:18 Abnorm Lymph % (Manual) 0 % 08/22/21 05:18 Blast Cells % 1 % H* 08/19/21 18:36 Nucleated RBC % Not Reportable 08/22/21 05:18 Neutrophils # (Manual) 0.6 10^3/uL (1.5-6.6) L 08/22/21 05:18 Lymphocytes # (Manual) 0.3 10^3/uL (1.5-3.5) L 08/22/21 05:18 Monocytes # (Manual) 0.0 10^3/uL (0.0-1.0) 08/22/21 05:18 Eosinophils # (Manual) 0.1 10^3/uL (0-0.7) 08/22/21 05:18 Basophils # (Manual) 0.0 10^3/uL (0-0.1) 08/22/21 05:18 Differential Comment MANUAL DIFFERENTIAL 08/22/21 05:18 WBC Morphology NORMAL APPEARANCE (NORMAL) 08/22/21 05:18 Platelet Estimate DECREASED (<130,000) (NORMAL) 08/22/21 05:18 Platelet Morphology NORMAL APPEARANCE (NORMAL) 08/22/21 05:18 RBC Morph Micro Appear 1+ ANISOCYTOSIS (NORMAL) 2+ HYPOCHROMASIA (NORMAL) 08/22/21 05:18 RBC Morph Micro Appear 1+ ANISOCYTOSIS (NORMAL) 2+ HYPOCHROMASIA (NORMAL) 08/22/21 05:18 Sodium 133 mmol/L (135-145) L 08/22/21 05:18 Potassium 2.9 mmol/L (3.5-5.0) L 08/22/21 05:18 Chloride 105 mmol/L (101-111) 08/22/21 05:18 Carbon Dioxide 20 mmol/L (21-32) L 08/22/21 05:18 Anion Gap 8.0 (6-13) 08/22/21 05:18 BUN 25 mg/dL (6-20) H 08/22/21 05:18 Creatinine 1.0 mg/dL (0.6-1.2) 08/22/21 05:18 Estimated GFR (MDRD) 74 (>89) L 08/22/21 05:18 Glucose 194 mg/dL (70-100) H 08/22/21 05:18 POC Whole Bld Glucose 185 mg/dL (70 - 100) H 08/22/21 07:24 Lactic Acid 1.0 mmol/L (0.5-2.2) 08/19/21 18:36 Calcium 8.0 mg/dL (8.5-10.3) L 08/22/21 05:18 Phosphorus 2.6 mg/dL (2.5-4.6) 08/22/21 05:18 Magnesium 1.8 mg/dL (1.7-2.8) 08/22/21 05:18 Total Bilirubin 1.4 mg/dL (0.2-1.0) H 08/19/21 18:36 AST 81 IU/L (10-42) H 08/19/21 18:36 ALT 68 IU/L (10-60) H 08/19/21 18:36 Alkaline Phosphatase 105 IU/L (42-121) 08/19/21 18:36 Total Protein 6.6 g/dL (6.7-8.2) L 08/19/21 18:36 Albumin 3.6 g/dL (3.2-5.5) 08/19/21 18:36 Globulin 3.0 g/dL (2.1-4.2) 08/19/21 18:36 Albumin/Globulin Ratio 1.2 (1.0-2.2) 08/19/21 18:36 Urine Color YELLOW 08/20/21 00:09 Urine Clarity CLEAR (CLEAR) 08/20/21 00:09 Urine pH 5.0 PH (5.0-7.5) 08/20/21 00:09 Ur Specific [place] 1.015 (1.002-1.030) 08/20/21 00:09 Urine Protein NEGATIVE mg/dL (NEGATIVE) 08/20/21 00:09 Urine Glucose (UA) NEGATIVE mg/dL (NEGATIVE) 08/20/21 00:09 Urine Ketones NEGATIVE mg/dL (NEGATIVE) 08/20/21 00:09 Urine Occult Blood NEGATIVE (NEGATIVE) 08/20/21 00:09 Urine Nitrite NEGATIVE (NEGATIVE) 08/20/21 00:09 Urine Bilirubin NEGATIVE (NEGATIVE) 08/20/21 00:09 Urine Urobilinogen 0.2 (NORMAL) E.U./dL (NORMAL) 08/20/21 00:09 Ur Leukocyte Esterase NEGATIVE (NEGATIVE) 08/20/21 00:09 Urine RBC None Seen /HPF (0-5) 08/20/21 00:09 Urine WBC 0-3 /HPF (0-3) 08/20/21 00:09 Ur Squamous Epith Cells RARE Squamous (<= Few) 08/20/21 00:09 Urine Bacteria Rare /HPF (None Seen) 08/20/21 00:09 Urine Casts 0-2 Hyaline Casts /LPF 08/20/21 00:09 Urine Culture Comments NOT INDICATED 08/20/21 00:09 Nasal Adenovirus (PCR) NOT DETECTED 08/19/21 18:30 Nasal B. parapertussis DNA (PCR) NOT DETECTED 08/19/21 18:30 Nasal Coronavir 229E PCR NOT DETECTED 08/19/21 18:30 Nasal Coronavir HKU1 PCR NOT DETECTED 02/05/22 18:30 Nasal Coronavir NL63 PCR NOT DETECTED 08/19/21 18:30 Nasal Coronavir OC43 PCR NOT DETECTED 08/19/21 18:30 Nasal Enterovir/Rhinovir PCR NOT DETECTED 08/19/21 18:30 Nasal Influenza B PCR NOT DETECTED 08/19/21 18:30 Nasal Influenza A PCR NOT DETECTED 08/19/21 18:30 Nasal Parainfluen 1 PCR NOT DETECTED 08/19/21 18:30 Nasal Parainfluen 2 PCR NOT DETECTED 08/19/21 18:30 Nasal Parainfluen 3 PCR NOT DETECTED 08/19/21 18:30 Nasal Parainfluen 4 PCR NOT DETECTED 08/19/21 18:30 Nasal RSV (PCR) NOT DETECTED 08/19/21 18:30 Nasal B.pertussis DNA PCR NOT DETECTED 08/19/21 18:30 Nasal C.pneumoniae (PCR) NOT DETECTED 08/19/21 18:30 Tin Human Metapneumo PCR NOT DETECTED 08/19/21 18:30 Nasal M.pneumoniae (PCR) NOT DETECTED 08/19/21 18:30 Nasal SARS-CoV-2 (PCR) NOT DETECTED 08/19/21 18:30 Stl C. diff Tox B Gene NEGATIVE (NEGATIVE) 08/19/21 19:53 Blood Type O NEGATIVE 08/20/21 05:10 Antibody Screen POSITIVE 08/20/21 05:10 Antibody Identification See Comments 08/20/21 05:10 JANET, IgG Specific POSITIVE 08/20/21 05:10 JANET, Polyspecific Not Reportable 08/20/21 05:10 JANET, C3d Specific NEGATIVE 08/20/21 05:10 Crossmatch See Detail 08/20/21 05:10 - Procedures Procedures: Procedures TRANSFUSE NONAUT RED BLOOD CELLS IN PERIPH VEIN, PERC (11/25/20) ABX Reporting Has patient been on IV antibiotics over the past 48 hours?: Yes
[2021-08-22] MEDS: CEFEPIME 2 GM in SODIUM CHLORIDE 0.9% MINIBAG 100 ML IV SCH ×3 (08:55→23:33)
[2021-08-22] MEDS ORDERED: SODIUM CHLORIDE 0.9% MINIBAG 100 ML IV ONE (08:56)
[2021-08-22] MEDS: INSULIN ASPART 300 UNIT/3 ML PEN SUBQ SCH ×4 (09:02→20:38)
[2021-08-22] MEDS: TAMSULOSIN 0.4 MG CAPSULE PO SCH (09:03)
[2021-08-22] MEDS: ACYCLOVIR 200 MG CAPSULE PO SCH ×2 (09:03→20:36)
[2021-08-22] MEDS: allopurinoL 100 MG TABLET PO SCH (09:03)
[2021-08-22] MEDS: POTASSIUM CHLOR 10 MEQ/100 ML 10 MEQ/100 ML BAG IV SCH ×4 (11:04→16:12)
[2021-08-22] MEDS: ACETAMINOPHEN 325 MG TABLET PO PRN (20:37)
[2021-08-22] MEDS: INSULIN GLARGINE 300 UNIT/3 ML PEN SUBQ SCH (20:38)
[2021-08-22] MEDS ORDERED: BENZOCAINE/MENTHOL LOZENGE MM PRN (23:44)
[2021-08-23 05:28] LABS: BASOPHILS % (AUTO) 1.7 %; LYMPHOCYTES % (AUTO) 46.7 %; MEAN CORPUSCULAR HEMOGLOBIN 31.5 pg (27.0-31.0); MEAN CORPUSCULAR HGB CONC 34.2 g/dL (32.0-36.0); MEAN CORPUSCULAR VOLUME 92.1 fL (80.0-94.0); MEAN PLATELET VOLUME 11.6 fL (7.4-11.4); MONOCYTES % (AUTO) 6.7 %; NEUTROPHILS % (AUTO) 28.2 %; RED BLOOD COUNT 2.16 10^6/uL (4.70-6.10); RED CELL DISTRIBUTION WIDTH 16.2 % (12.0-15.0)
[2021-08-23 05:33] LABS: HGB - HEMOGLOBIN 6.8 g/dL (14.0-18.0); WHITE BLOOD COUNT 0.6 x10^3/uL (4.8-10.8)
[2021-08-23 05:34] LABS: HCT - HEMATOCRIT 19.9 % (42.0-52.0); PLT - PLATELET COUNT 21 10^3/uL (130-450)
[2021-08-23 05:35] LABS: ABNORMAL LYMPHS % (MANUAL) 0 %
[2021-08-23 05:36] LABS: CALCIUM 8.2 mg/dL (8.5-10.3); MAGNESIUM 1.8 mg/dL (1.7-2.8); PHOSPHORUS 2.3 mg/dL (2.5-4.6); POTASSIUM 3.8 mmol/L (3.5-5.0)
[2021-08-23 05:54] LABS: BAND NEUTROPHILS % (MANUAL) 4 %; LYMPHOCYTES # (MANUAL) 0.3 10^3/uL (1.5-3.5); LYMPHOCYTES % (MANUAL) 52 %; NEUTROPHILS # (MANUAL) 0.2 10^3/uL (1.5-6.6)
[2021-08-23 05:56] LABS: DIFFERENTIAL COMMENT MANUAL DIFFERENTIAL; PLATELET ESTIMATE, MANUAL DECREASED (<130,000) (NORMAL); RBC MORPHOLOGY (MULTIPLE) 2+ HYPOCHROMASIA (NORMAL)
[2021-08-23] MEDS ORDERED: IOPAMIDOL-300 50 ML VIAL ONE (06:19)
[2021-08-23] MEDS ORDERED: IOVERSOL 320 100 ML VIAL IVP ONE ×2 (06:19→09:42)
[2021-08-23] MEDS: POTASSIUM CHLORIDE 20 MEQ TABLET PO SCH (06:42)
[2021-08-23] MEDS: PANTOPRAZOLE 40 MG TABLET PO SCH (06:43)
--- NOTE | 2021-08-23 07:40 | PROVIDER PROGRESS NOTE ---
Assessment/Plan - Problem List (1) Neutropenic fever Assessment/Plan: 08/23 Dropped from 0.9 down to 0.6 today. Absolute neutrophil count is 0.2. Patient has been afebrile for at least [address] of the abdomen/pelvis done on 08/23/2021 showed Significant wall thickening involving distal descending colon, sigmoid colon and rectum which may represent infectious or inflammatory colitis. Cefepime was discontinued. Patient started on Cipro and Flagyl twice daily IV on 08/23/2021. 08/22 White blood cell count dropped from 1.7 yesterday down to 0.9 today. Patient spiked a temperature of 38.2 C today. As a result Bactrim was discontinued and patient was resumed on cefepime 2 g every 8 hours IV. Blood cultures were drawn prior to IV antibiotic administration. On acyclovir 400 mg p.o. twice daily. (2) Myelodysplasia (myelodysplastic syndrome) Assessment/Plan: 08/23 Hemoglobin was 6.8 this morning. Patient transfused 2 units of irradiated packed red blood cells. Platelet is 21. Absolute neutrophil count is 0.2 with white blood cell count of 0.6. 08/22 Patient was supposed to see Dr. Ross in the outpatient setting yesterday 08/21/2021. He was seen by Dr. Ross inpatient at [facility] His Vidaza and study drug at [facility] for 08/21 were postponed to 08/28. Then the plan after that would be to continue the rest of the Vidaza doses at the MAC clinic at [facility]. Azacitadine IV 7days of 28 day cycle Transfusion threshold for irradiated PRBCs less than 7 seconds 2 units irradiated. Platelets 1 unit if count less than 10 or bleeding. (3) Colitis Assessment/Plan: CT of the abdomen/pelvis done on 08/23/2021 showed significant wall thickening involving distal descending colon, sigmoid colon and rectum which may represent infectious or inflammatory colitis. Cefepime was discontinued. Patient started on Cipro and Flagyl IV on 08/23/2021. (4) Diarrhea Qualifiers: Diarrhea type: unspecified type Qualified Code(s): R19.7 - Diarrhea, unspecified Assessment/Plan: Likely related to colitis. Infectious versus inflammatory as shown on CT of abdomen/pelvis.. Given its duration suspect Diarrhea could be related to chemotherapy. Currently on IV antibiotics. Lomotil 1 tablet p.o. 4 times daily as needed. (5) Hypokalemia Assessment/Plan: Improved/resolved. Potassium is 3.8 this morning. (6) History of pulmonary embolus (PE) Assessment/Plan: Khushiquis currently on hold due to thrombocytopenia with a platelet count of 21. (7) Type 2 diabetes mellitus, controlled Qualifiers: Assessment/Plan: Lantus 10 units subcu every afternoon. Sliding scale insulin. Accu-Cheks before every meal and at bedtime. - Current Meds Current Meds: Current Medications Generic Name Dose Route Start Last Admin Trade Name Freq PRN Reason Stop Dose Admin Acetaminophen 650 mg 08/19/21 20:00 08/22/21 20:37 Acetaminophen 325 Mg Tablet PO 650 mg Q4HR PRN Administration Pain 1 to 4 Acyclovir 400 mg 08/21/21 14:00 08/22/21 20:36 Acyclovir 200 Mg Capsule PO 400 mg BID ANUSHA Administration Allopurinol 300 mg 08/21/21 14:00 08/22/21 09:03 Allopurinol 100 Mg Tablet PO 300 mg DAILY ANUSHA Administration Diphenoxylate HCl/Atropine 1 tab 08/20/21 12:34 08/21/21 17:46 Diphenox/Atropine 2.5/0.025 Mg Tablet PO 1 tab QID PRN Administration Diarrhea Heparin Sodium (Beef Lung) 30 - 50 unit 08/20/21 15:37 08/21/21 16:47 Heparin Flush 50 Units/5 Ml Syringe IVP 50 unit PRN PRN Administration Port Protocol (<24 hours) Cefepime HCl 2 gm/ Sodium 100 mls @ 200 mls/hr 08/22/21 08:00 08/23/21 00:03 Chloride IV Infused Q8H ANUSHA Infusion Insulin Aspart 2 - 10 unit 08/21/21 17:00 08/22/21 20:38 Insulin Aspart 300 Unit/3 Ml Pen SUBQ 6 unit 0800,1200,1700,2100 ANUSHA Administration Protocol Insulin Glargine 10 unit 08/19/21 21:00 08/22/21 20:38 Insulin Glargine 300 Unit/3 Ml Pen SUBQ 10 unit QPM ANUSHA Administration Pantoprazole Sodium 40 mg 08/20/21 07:00 08/23/21 06:43 Pantoprazole 40 Mg Tablet PO 40 mg QDAC ANUSHA Administration Sodium Chloride 10 ml 08/19/21 20:00 08/19/21 22:44 Sodium Chloride Flush 0.9% 10 Ml Syringe IVP 10 ml PRN PRN Administration NEEDED PER PROVIDER ORDERS Sodium Chloride 10 ml 08/20/21 01:00 08/22/21 23:33 Sodium Chloride Flush 0.9% 10 Ml Syringe IVP 10 ml 0100,0900,1700 ANUSHA Administration Tamsulosin HCl 0.4 mg 08/20/21 13:00 08/22/21 09:03 Tamsulosin 0.4 Mg Capsule PO 0.4 mg DAILY ANUSHA Administration Throat Lozenges 1 lozenge 08/22/21 23:44 08/23/21 00:10 Benzocaine/Menthol Lozenge MM 1 lozenge Q2HR PRN Administration Throat pain - Lab Result Fish Bone Diagrams: 08/23/21 05:00 08/23/21 05:00 - Additional Planning My Orders: My Active Orders 08/22/21 08:00 Blood Culture [CULTURE, BLOOD #1] [] Routine Blood Culture [CULTURE, BLOOD #2] [] Routine Cefepime 2 gm Sodium Chloride 0.9% Minibag [Normal Saline 0.9% Minibag] 100 ml IV Q8H 08/23/21 RBC, LEUKOREDUCED Stat 08/23/21 08:00 Multivitamin W/Minerals [Theragran M] 1 tab PO DAILYWM 08/23/21 09:00 Cholecalciferol [Vitamin D3] 50 mcg PO DAILY Subjective - Subjective Patient Reports: Other (Was seated at the edge of the bed with his feet resting on the floor. He denied any significant complains today.) Objective Vital Signs: Vital Signs - 24 hr 08/22/21 08/22/21 08/22/21 11:49 15:20 20:42 Temperature 36.7 C 36.7 C 36.9 C Heart Rate [ 65 70 64 Brachial] Respiratory 18 18 18 Rate Blood Pressure 134/59 H [Left Brachial artery] Blood Pressure 134/60 H 127/60 [Right Brachial artery] O2 Saturation 100 99 100 08/22/21 08/23/21 23:24 05:00 Temperature 36.5 C 36.5 C Heart Rate [ 62 60 Brachial] Respiratory 18 18 Rate Blood Pressure [Left Brachial artery] Blood Pressure 120/49 L 114/56 L [Right Brachial artery] O2 Saturation 96 99 Oxygen O2 Source Room air I&O (Last 24 Hrs): Intake and Output Totals x24h 08/21/21 08/22/21 08/23/21 23:59 23:59 23:59 Intake Total 2520 2098.333 450 Output Total 1800 1520 425 Balance 720 578.333 25 General: Alert, Oriented x3, No acute distress HEENT: PERRLA, EOMI Neck: Supple, No JVD Neuro: Alert, Non Focal, Oriented Times 3 Cardiovascular: Regular rate, Normal S1, Normal S2 Respiratory: Chest non-tender, No respiratory distress, Breath sounds nml Abdomen: Normal bowel sounds, Soft, No tenderness Extremities: No clubbing, No cyanosis, No edema Skin: No rashes, No breakdown - Results Results: Laboratory Results WBC 0.6 x10^3/uL (4.8-10.8) L* 08/23/21 05:00 RBC 2.16 10^6/uL (4.70-6.10) L 08/23/21 05:00 Hgb 6.8 g/dL (14.0-18.0) L* 08/23/21 05:00 Hct 19.9 % (42.0-52.0) L* 08/23/21 05:00 MCV 92.1 fL (80.0-94.0) 08/23/21 05:00 MCH 31.5 pg (27.0-31.0) H 08/23/21 05:00 MCHC 34.2 g/dL (32.0-36.0) 08/23/21 05:00 RDW 16.2 % (12.0-15.0) H 08/23/21 05:00 Plt Count 21 10^3/uL (130-450) L* 08/23/21 05:00 MPV 11.6 fL (7.4-11.4) H 08/23/21 05:00 Neut # (Auto) Not Reportable 08/23/21 05:00 Lymph # (Auto) Not Reportable 08/23/21 05:00 [place] # (Auto) Not Reportable 08/23/21 05:00 Eos # (Auto) Not Reportable 08/23/21 05:00 Baso # (Auto) Not Reportable 08/23/21 05:00 Absolute Nucleated RBC Not Reportable 08/23/21 05:00 Total Counted 50 08/23/21 05:00 Band Neuts % (Manual) 4 % (0-10) 08/23/21 05:00 Abnorm Lymph % (Manual) 0 % 08/23/21 05:00 Blast Cells % 1 % H* 08/19/21 18:36 Nucleated RBC % Not Reportable 08/23/21 05:00 Neutrophils # (Manual) 0.2 10^3/uL (1.5-6.6) L* 08/23/21 05:00 Lymphocytes # (Manual) 0.3 10^3/uL (1.5-3.5) L 08/23/21 05:00 Monocytes # (Manual) 0.0 10^3/uL (0.0-1.0) 08/23/21 05:00 Eosinophils # (Manual) 0.0 10^3/uL (0-0.7) 08/23/21 05:00 Basophils # (Manual) 0.0 10^3/uL (0-0.1) 08/23/21 05:00 Differential Comment MANUAL DIFFERENTIAL 08/23/21 05:00 WBC Morphology NORMAL APPEARANCE (NORMAL) 08/22/21 05:18 Platelet Estimate DECREASED (<130,000) (NORMAL) 08/23/21 05:00 Platelet Morphology NORMAL APPEARANCE (NORMAL) 08/22/21 05:18 RBC Morph Micro Appear 2+ HYPOCHROMASIA (NORMAL) 08/23/21 05:00 Sodium 137 mmol/L (135-145) 08/23/21 05:00 Potassium 3.8 mmol/L (3.5-5.0) 08/23/21 05:00 Chloride 108 mmol/L (101-111) 08/23/21 05:00 Carbon Dioxide 22 mmol/L (21-32) 08/23/21 05:00 Anion Gap 7.0 (6-13) 08/23/21 05:00 BUN 21 mg/dL (6-20) H 08/23/21 05:00 Creatinine 1.0 mg/dL (0.6-1.2) 08/23/21 05:00 Estimated GFR (MDRD) 74 (>89) L 08/23/21 05:00 Glucose 208 mg/dL (70-100) H 08/23/21 05:00 POC Whole Bld Glucose 180 mg/dL (70 - 100) H 08/23/21 07:35 Lactic Acid 1.0 mmol/L (0.5-2.2) 08/19/21 18:36 Calcium 8.2 mg/dL (8.5-10.3) L 08/23/21 05:00 Phosphorus 2.3 mg/dL (2.5-4.6) L 08/23/21 05:00 Magnesium 1.8 mg/dL (1.7-2.8) 08/23/21 05:00 Total Bilirubin 1.4 mg/dL (0.2-1.0) H 08/19/21 18:36 AST 81 IU/L (10-42) H 08/19/21 18:36 ALT 68 IU/L (10-60) H 08/19/21 18:36 Alkaline Phosphatase 105 IU/L (42-121) 08/19/21 18:36 Total Protein 6.6 g/dL (6.7-8.2) L 08/19/21 18:36 Albumin 3.6 g/dL (3.2-5.5) 08/19/21 18:36 Globulin 3.0 g/dL (2.1-4.2) 08/19/21 18:36 Albumin/Globulin Ratio 1.2 (1.0-2.2) 08/19/21 18:36 Urine Color YELLOW 08/20/21 00:09 Urine Clarity CLEAR (CLEAR) 08/20/21 00:09 Urine pH 5.0 PH (5.0-7.5) 08/20/21 00:09 Ur Specific [place] 1.015 (1.002-1.030) 08/20/21 00:09 Urine Protein NEGATIVE mg/dL (NEGATIVE) 08/20/21 00:09 Urine Glucose (UA) NEGATIVE mg/dL (NEGATIVE) 08/20/21 00:09 Urine Ketones NEGATIVE mg/dL (NEGATIVE) 08/20/21 00:09 Urine Occult Blood NEGATIVE (NEGATIVE) 08/20/21 00:09 Urine Nitrite NEGATIVE (NEGATIVE) 08/20/21 00:09 Urine Bilirubin NEGATIVE (NEGATIVE) 08/20/21 00:09 Urine Urobilinogen 0.2 (NORMAL) E.U./dL (NORMAL) 08/20/21 00:09 Ur Leukocyte Esterase NEGATIVE (NEGATIVE) 08/20/21 00:09 Urine RBC None Seen /HPF (0-5) 08/20/21 00:09 Urine WBC 0-3 /HPF (0-3) 08/20/21 00:09 Ur Squamous Epith Cells RARE Squamous (<= Few) 08/20/21 00:09 Urine Bacteria Rare /HPF (None Seen) 08/20/21 00:09 Urine Casts 0-2 Hyaline Casts /LPF 08/20/21 00:09 Urine Culture Comments NOT INDICATED 08/20/21 00:09 Nasal Adenovirus (PCR) NOT DETECTED 08/19/21 18:30 Nasal B. parapertussis DNA (PCR) NOT DETECTED 08/19/21 18:30 Nasal Coronavir 229E PCR NOT DETECTED 08/19/21 18:30 Nasal Coronavir HKU1 PCR NOT DETECTED 08/19/21 18:30 Nasal Coronavir NL63 PCR NOT DETECTED 08/19/21 18:30 Nasal Coronavir OC43 PCR NOT DETECTED 08/19/21 18:30 Nasal Enterovir/Rhinovir PCR NOT DETECTED 08/19/21 18:30 Nasal Influenza B PCR NOT DETECTED 08/19/21 18:30 Nasal Influenza A PCR NOT DETECTED 08/19/21 18:30 Nasal Parainfluen 1 PCR NOT DETECTED 08/19/21 18:30 Nasal Parainfluen 2 PCR NOT DETECTED 08/19/21 18:30 Nasal Parainfluen 3 PCR NOT DETECTED 08/19/21 18:30 Nasal Parainfluen 4 PCR NOT DETECTED 08/19/21 18:30 Nasal RSV (PCR) NOT DETECTED 08/19/21 18:30 Nasal B.pertussis DNA PCR NOT DETECTED 08/19/21 18:30 Nasal C.pneumoniae (PCR) NOT DETECTED 08/19/21 18:30 Tin Human Metapneumo PCR NOT DETECTED 08/19/21 18:30 Nasal M.pneumoniae (PCR) NOT DETECTED 08/19/21 18:30 Nasal SARS-CoV-2 (PCR) NOT DETECTED 08/19/21 18:30 Stl C. diff Tox B Gene NEGATIVE (NEGATIVE) 08/19/21 19:53 Blood Type O NEGATIVE 08/20/21 05:10 Antibody Screen POSITIVE 08/20/21 05:10 Antibody Identification See Comments 08/20/21 05:10 JANET, IgG Specific POSITIVE 08/20/21 05:10 JANET, Polyspecific Not Reportable 08/20/21 05:10 JANET, C3d Specific NEGATIVE 08/20/21 05:10 Crossmatch See Detail 08/20/21 05:10 - Procedures Procedures: Procedures TRANSFUSE NONAUT RED BLOOD CELLS IN PERIPH VEIN, PERC (11/25/20) ABX Reporting Has patient been on IV antibiotics over the past 48 hours?: Yes
[2021-08-23] MEDS: INSULIN ASPART 300 UNIT/3 ML PEN SUBQ SCH ×4 (08:23→20:35)
[2021-08-23] MEDS: allopurinoL 100 MG TABLET PO SCH (08:23)
[2021-08-23] MEDS: TAMSULOSIN 0.4 MG CAPSULE PO SCH (08:24)
[2021-08-23] MEDS: MULTIVITAMIN W/MINERALS TABLET PO SCH (08:24)
[2021-08-23] MEDS: CHOLECALCIFEROL 25 MCG TABLET PO SCH (08:24)
[2021-08-23] MEDS: ACYCLOVIR 200 MG CAPSULE PO SCH ×2 (08:24→20:34)
[2021-08-23] MEDS: CEFEPIME 2 GM in SODIUM CHLORIDE 0.9% MINIBAG 100 ML IV SCH (08:28)
[2021-08-23] MEDS: SODIUM CHLORIDE FLUSH 0.9% 10 ML SYRINGE IVP SCH ×2 (08:29→16:24)
[2021-08-23] MEDS ORDERED: IOPAMIDOL-300 50 ML VIAL PO ONE (09:42)
[2021-08-23] MEDS: DIPHENOX/ATROPINE 2.5/0.025 MG TABLET PO PRN ×2 (10:02→12:07)
--- NOTE | 2021-08-23 10:19 | CT Report ---
PROCEDURE: Abdomen/Pelvis W INDICATIONS: LLQ abd pain TECHNIQUE: After the administration of oral and intravenous contrast, 5 mm thick sections acquired from the diap hragms to the symphysis. 5 mm thick coronal and sagittal reformats were acquired. For radiation dos e reduction, the following was used: automated exposure control, adjustment of mA and/or kV accordin g to patient size. COMPARISON: 04/21/2020, 03/01/2020, 12/21/2019 FINDINGS: Image quality: Excellent. ABDOMEN: Lung bases: Bibasilar atelectasis are seen. Heart size is enlarged, no pericardial effusion. Visualiz ed inferior ribs are grossly intact. Solid organs: Liver is normal in size and enhancement. Mild splenomegaly is seen, no discrete splenic lesion.. Multiple calcified stones are seen in dependent portion of gallbladder lumen. No gross gall bladder wall thickening or pericholecystic fluid. Biliary system is non-dilated. Pancreas enhances no rmally. Previously described 2.6 x 2.5 cm cystic lesion involving pancreatic head body junction is no t significantly changed series 3 image 34. No adrenal hematomas. Bilateral kidneys are normal in size . Nonobstructing stone in mid to lower pole of right kidney is again seen. Multiple bilateral renal c ysts are noted. No hydronephrosis or hydroureter. Peritoneum and bowel: There is no evidence of bowel obstruction. No gastric or small bowel wall thick ening. Previously noted bilateral thickening involving terminal ileum and proximal colon is no longer present. There is significant colonic wall thickening involving mid to distal descending colon and s igmoid colon with pericolonic fat stranding. No discrete drainable abscess collection is noted. Small amount of free fluid is seen in lower abdomen and pelvis. No peritoneal free air. Sigmoid diverticul osis is seen without evidence of acute radiculitis. Nodes and vessels: Mildly enlarged retroperitoneal lymph nodes are seen measures up to 1.1 cm just be low the aortic bifurcation series 3 image 55. No mesenteric lymphadenopathy by size criteria. Left il iac lymph node measures up to 8 mm in size is seen series 3 image 76. Aorta and inferior vena cava ar e normal in size and enhancement. Moderate atherosclerotic calcifications are seen. Miscellaneous: No ventral hernias. PELVIS: Genitourinary: Bladder wall thickness is normal. Miscellaneous: Small bilateral inguinal hernia containing fat only. No inguinal lymphadenopathy by si ze criteria. Bones: Nono acute vertebral body compression fracture. Osteoarthritic changes throughout bony pelvis is seen. There is partial ankylosis involving bilateral sacroiliac joints. Nonspecific ill-defined ar ea of sclerosis involving posterior right ilium is seen and is a new finding since 04/21/2020 study. N o other suspicious bony lesion is seen. IMPRESSION: 1. Significant wall thickening involving distal descending colon, sigmoid colon and rectum which may represent infectious or inflammatory colitis. Underlying malignant process cannot be excluded. GI cor relation is recommended. 2. No bowel obstruction. No other area of abnormal bowel wall thickening. Small amount of free fluid in lower abdomen and pelvis. No gross peritoneal free air. 3. Mild splenomegaly, no discrete splenic lesion. 4. Stable appearing cystic area involving pancreatic head body junction. 5. Bilateral renal cysts and stable nonobstructing right renal calculus. No hydronephrosis or hydrour eter. 6. Ill-defined sclerotic area involving posterior right iliac bone adjacent to sacroiliac joint Since 2019 study. Benign-appearing sclerotic focus is also seen involving posterior cortex of left sc lerotic bone. No other suspicious bony lesion. Partial ankylosis of bilateral sacroiliac joints. 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 Reviewed by: Gunner Gilman MD on 08/23/2021 10:18 AM PST Approved by: Gunner Gilman MD on 08/23/2021 10:18 AM PST Station ID: [id number]
[2021-08-23] MEDS: CIPROFLOXACIN 400 MG/200 ML 400 MG/200 ML BAG IV SCH (13:28)
[2021-08-23] MEDS: metroNIDAZOLE 500 MG/100 ML 500 MG/100 ML BAG IV SCH ×2 (14:25→20:38)
[2021-08-23] MEDS: INSULIN GLARGINE 300 UNIT/3 ML PEN SUBQ SCH (20:34)
[2021-08-24] MEDS: CIPROFLOXACIN 400 MG/200 ML 400 MG/200 ML BAG IV SCH ×2 (01:42→13:31)
[2021-08-24] MEDS: ACETAMINOPHEN 325 MG TABLET PO PRN ×3 (01:42→20:45)
[2021-08-24] MEDS: SODIUM CHLORIDE FLUSH 0.9% 10 ML SYRINGE IVP SCH ×3 (01:42→16:56)
[2021-08-24] MEDS: DIPHENOX/ATROPINE 2.5/0.025 MG TABLET PO PRN ×3 (01:49→12:25)
[2021-08-24 06:10] LABS: CALCIUM 8.1 mg/dL (8.5-10.3); CREATININE 0.8 mg/dL (0.6-1.2); MAGNESIUM 1.6 mg/dL (1.7-2.8); PHOSPHORUS 2.7 mg/dL (2.5-4.6); POTASSIUM 3.7 mmol/L (3.5-5.0)
[2021-08-24 06:13] LABS: BASOPHILS % (AUTO) 2.7 %; HCT - HEMATOCRIT 22.8 % (42.0-52.0); HGB - HEMOGLOBIN 7.9 g/dL (14.0-18.0); LYMPHOCYTES # (AUTO) 0.4 10^3/uL (1.5-3.5); LYMPHOCYTES % (AUTO) 57.3 %; MEAN CORPUSCULAR HEMOGLOBIN 31.1 pg (27.0-31.0); MEAN CORPUSCULAR HGB CONC 34.6 g/dL (32.0-36.0); MEAN CORPUSCULAR VOLUME 89.8 fL (80.0-94.0); MONOCYTES # (AUTO) 0.1 10^3/uL (0.0-1.0); NEUTROPHILS % (AUTO) 21.3 %; RED BLOOD COUNT 2.54 10^6/uL (4.70-6.10); RED CELL DISTRIBUTION WIDTH 16.5 % (12.0-15.0)
[2021-08-24] MEDS: metroNIDAZOLE 500 MG/100 ML 500 MG/100 ML BAG IV SCH ×3 (06:14→21:38)
[2021-08-24] MEDS: PANTOPRAZOLE 40 MG TABLET PO SCH (06:14)
[2021-08-24 06:18] LABS: NEUTROPHILS # (AUTO) 0.2 10^3/uL (1.5-6.6); PLT - PLATELET COUNT 21 10^3/uL (130-450); WHITE BLOOD COUNT 0.8 x10^3/uL (4.8-10.8)
--- NOTE | 2021-08-24 07:24 | PROVIDER PROGRESS NOTE ---
Assessment/Plan - Problem List (1) Neutropenic fever Assessment/Plan: 08/24 WBC today is 0.8. Platelets 21, Hgb 7.9 Will continue Cipro and flagyl IV. Anticipating further improvement. 08/23 Dropped from 0.9 down to 0.6 today. Absolute neutrophil count is 0.2. Patient has been afebrile for at least [address] of the abdomen/pelvis done on 08/23/2021 showed Significant wall thickening involving distal descending colon, sigmoid colon and rectum which may represent infectious or inflammatory colitis. Cefepime was discontinued. Patient started on Cipro and Flagyl twice daily IV on 08/23/2021. 08/22 White blood cell count dropped from 1.7 yesterday down to 0.9 today. Patient spiked a temperature of 38.2 C today. As a result Bactrim was discontinued and patient was resumed on cefepime 2 g every 8 hours IV. Blood cultures were drawn prior to IV antibiotic administration. On acyclovir 400 mg p.o. twice daily. (2) Myelodysplasia (myelodysplastic syndrome) Assessment/Plan: 08/24 WBC today is 0.8. Platelets 21, Hgb 7.9 08/23 Hemoglobin was 6.8 this morning. Patient transfused 2 units of irradiated packed red blood cells. Platelet is 21. Absolute neutrophil count is 0.2 with white blood cell count of 0.6. 08/22 Patient was supposed to see Dr. Ross in the outpatient setting yesterday 08/21/2021. He was seen by Dr. Ross inpatient at [facility] His Vidaza and study drug at [facility] for 08/21 were postponed to 08/28. Then the plan after that would be to continue the rest of the Vidaza doses at the [facility] clinic at [facility]. Azacitadine IV 7days of 28 day cycle Transfusion threshold for irradiated PRBCs less than 7 seconds 2 units irradiated. Platelets 1 unit if count less than 10 or bleeding. (4) Diarrhea Qualifiers: Diarrhea type: unspecified type Qualified Code(s): R19.7 - Diarrhea, unspecified Assessment/Plan: CT of the abdomen/pelvis done on 08/23/2021 showed significant wall thickening involving distal descending colon, sigmoid colon and rectum which may represent infectious or inflammatory colitis. Cefepime was discontinued. Patient started on Cipro and Flagyl IV on 08/23/2021. (5) Hypokalemia Assessment/Plan: Improved/resolved. Potassium is 3.7 this morning. (6) History of pulmonary embolus (PE) Assessment/Plan: Khushiquis currently on hold due to thrombocytopenia with a platelet count of 21. (7) Type 2 diabetes mellitus, controlled Qualifiers: Assessment/Plan: Lantus increased to 15 units subcu every afternoon. Sliding scale insulin. Accu-Cheks before every meal and at bedtime. - Current Meds Current Meds: Current Medications Generic Name Dose Route Start Last Admin Trade Name Freq PRN Reason Stop Dose Admin Acetaminophen 650 mg 08/19/21 20:00 08/24/21 06:22 Acetaminophen 325 Mg Tablet PO 650 mg Q4HR PRN Administration Pain 1 to 4 Acyclovir 400 mg 08/21/21 14:00 08/23/21 20:34 Acyclovir 200 Mg Capsule PO 400 mg BID ANUSHA Administration Allopurinol 300 mg 08/21/21 14:00 08/23/21 08:23 Allopurinol 100 Mg Tablet PO 300 mg DAILY ANUSHA Administration Cholecalciferol 50 mcg 08/23/21 09:00 08/23/21 08:24 Cholecalciferol 25 Mcg Tablet PO 50 mcg DAILY ANUSHA Administration Diphenoxylate HCl/Atropine 1 tab 08/20/21 12:34 08/24/21 01:49 Diphenox/Atropine 2.5/0.025 Mg Tablet PO 1 tab QID PRN Administration Diarrhea Heparin Sodium (Beef Lung) 30 - 50 unit 08/20/21 15:37 08/23/21 20:36 Heparin Flush 50 Units/5 Ml Syringe IVP 50 unit PRN PRN Administration Port Protocol (<24 hours) Ciprofloxacin 400 mg in 200 mls @ 200 mls/hr 08/23/21 14:00 08/24/21 02:42 Cipro 400 Mg/200 Ml IV Infused Q12H ANUSHA Infusion Metronidazole 500 mg in 100 mls @ 100 mls/hr 08/23/21 14:00 08/24/21 07:23 Flagyl 500 Mg/100 Ml IV Infused Q8H ANUSHA Infusion Insulin Aspart 3 - 11 unit 08/23/21 17:00 08/23/21 20:35 Insulin Aspart 300 Unit/3 Ml Pen SUBQ 7 unit 0800,1200,1700,2100 ANUSHA Administration Protocol Insulin Glargine 10 unit 08/19/21 21:00 08/23/21 20:34 Insulin Glargine 300 Unit/3 Ml Pen SUBQ 10 unit QPM ANUSHA Administration Multivitamins/Minerals 1 tab 08/23/21 08:00 08/23/21 08:24 Multivitamin W/Minerals Tablet PO 1 tab DAILYWM ANUSHA Administration Pantoprazole Sodium 40 mg 08/20/21 07:00 08/24/21 06:14 Pantoprazole 40 Mg Tablet PO 40 mg QDAC ANUSHA Administration Sodium Chloride 10 ml 08/19/21 20:00 08/19/21 22:44 Sodium Chloride Flush 0.9% 10 Ml Syringe IVP 10 ml PRN PRN Administration NEEDED PER PROVIDER ORDERS Sodium Chloride 10 ml 08/20/21 01:00 08/24/21 01:42 Sodium Chloride Flush 0.9% 10 Ml Syringe IVP 10 ml 0100,0900,1700 ANUSHA Administration Tamsulosin HCl 0.4 mg 08/20/21 13:00 08/23/21 08:24 Tamsulosin 0.4 Mg Capsule PO 0.4 mg DAILY ANUSHA Administration Throat Lozenges 1 lozenge 08/22/21 23:44 08/23/21 00:10 Benzocaine/Menthol Lozenge MM 1 lozenge Q2HR PRN Administration Throat pain - Lab Result Fish Bone Diagrams: 08/24/21 05:50 08/24/21 05:50 - Additional Planning My Orders: My Active Orders 08/23/21 08:00 Multivitamin W/Minerals [Theragran M] 1 tab PO DAILYWM 08/23/21 09:00 Cholecalciferol [Vitamin D3] 50 mcg PO DAILY 08/23/21 14:00 Ciprofloxacin 400 mg/200 ml [Cipro 400 mg/200 ml] 400 mg in 200 ml IV Q12H metroNIDAZOLE 500 MG/100 ML [Flagyl 500 mg/100 ml] 500 mg in 100 ml IV Q8H 08/23/21 14:25 MISC TEST QUEST AMBIENT [REFLAB] Routine 08/24/21 08:00 Neutra-Phos [K-Phos Neutral] 250 mg PO TIDWM Subjective - Subjective Patient Reports: Other (He was sleeping comfortably at time of visit however he readily woke up to verbal stimuli. He mainly complained of lower back pain which she attributed to the hospital bed being uncomfortable. He denied any other complaints.) Objective Vital Signs: Vital Signs - 24 hr 08/23/21 08/23/21 08/23/21 07:43 10:31 10:46 Temperature 36.4 C L 36.7 C 36.8 C Heart Rate 68 63 Heart Rate [ 60 Brachial] Respiratory 18 19 18 Rate Blood Pressure 127/66 130/53 L Blood Pressure 105/44 L [Left Brachial artery] Blood Pressure [Right Brachial artery] O2 Saturation 99 08/23/21 08/23/21 08/23/21 13:25 15:49 16:11 Temperature 36.7 C 36.8 C 36.6 C Heart Rate 70 60 Heart Rate [ 60 Brachial] Respiratory 19 18 18 Rate Blood Pressure 146/63 H 133/69 H Blood Pressure [Left Brachial artery] Blood Pressure 133/60 H [Right Brachial artery] O2 Saturation 100 08/23/21 08/23/21 08/23/21 16:32 18:49 20:57 Temperature 36.8 C 36.5 C 36.5 C Heart Rate 60 72 Heart Rate [ 81 Brachial] Respiratory 18 18 18 Rate Blood Pressure 147/61 H 154/63 H Blood Pressure [Left Brachial artery] Blood Pressure 141/62 H [Right Brachial artery] O2 Saturation 98 08/23/21 08/24/21 23:58 05:32 Temperature 37.7 C 36.5 C Heart Rate Heart Rate [ 64 52 L Brachial] Respiratory 18 16 Rate Blood Pressure Blood Pressure [Left Brachial artery] Blood Pressure 128/59 L 137/62 H [Right Brachial artery] O2 Saturation 98 99 Oxygen O2 Source Room air I&O (Last 24 Hrs): Intake and Output Totals x24h 08/22/21 08/23/21 08/24/21 23:59 23:59 23:59 Intake Total 2098.333 2220 300 Output Total 1520 1300 600 Balance 578.333 920 -300 Comments/Notes: HEENT: PERRLA, EOMI Neck: Supple, No JVD Neuro: Alert, Non Focal, Oriented Times 3 Cardiovascular: Regular rate, Normal S1, Normal S2 Respiratory: Chest non-tender, No respiratory distress, Breath sounds nml Abdomen: Normal bowel sounds, Soft, No tenderness Extremities: No clubbing, No cyanosis, No edema Skin: No rashes, No breakdown - Results Results: Laboratory Results WBC 0.8 x10^3/uL (4.8-10.8) L* 08/24/21 05:50 RBC 2.54 10^6/uL (4.70-6.10) L 08/24/21 05:50 Hgb 7.9 g/dL (14.0-18.0) L 08/24/21 05:50 Hct 22.8 % (42.0-52.0) L 08/24/21 05:50 MCV 89.8 fL (80.0-94.0) 08/24/21 05:50 MCH 31.1 pg (27.0-31.0) H 08/24/21 05:50 MCHC 34.6 g/dL (32.0-36.0) 08/24/21 05:50 RDW 16.5 % (12.0-15.0) H 08/24/21 05:50 Plt Count 21 10^3/uL (130-450) L* 08/24/21 05:50 MPV 11.0 fL (7.4-11.4) 08/24/21 05:50 Neut # (Auto) Not Reportable 08/23/21 05:00 Lymph # (Auto) Not Reportable 08/23/21 05:00 [place] # (Auto) Not Reportable 08/23/21 05:00 Eos # (Auto) Not Reportable 08/23/21 05:00 Baso # (Auto) Not Reportable 08/23/21 05:00 Absolute Nucleated RBC Not Reportable 08/23/21 05:00 Total Counted 50 08/23/21 05:00 Band Neuts % (Manual) 4 % (0-10) 08/23/21 05:00 Abnorm Lymph % (Manual) 0 % 08/23/21 05:00 Blast Cells % 1 % H* 08/19/21 18:36 Nucleated RBC % Not Reportable 08/23/21 05:00 Neutrophils # (Manual) 0.2 10^3/uL (1.5-6.6) L* 08/23/21 05:00 Lymphocytes # (Manual) 0.3 10^3/uL (1.5-3.5) L 08/23/21 05:00 Monocytes # (Manual) 0.0 10^3/uL (0.0-1.0) 08/23/21 05:00 Eosinophils # (Manual) 0.0 10^3/uL (0-0.7) 08/23/21 05:00 Basophils # (Manual) 0.0 10^3/uL (0-0.1) 08/23/21 05:00 Differential Comment MANUAL DIFFERENTIAL 08/23/21 05:00 WBC Morphology NORMAL APPEARANCE (NORMAL) 08/22/21 05:18 Platelet Estimate DECREASED (<130,000) (NORMAL) 08/23/21 05:00 Platelet Morphology NORMAL APPEARANCE (NORMAL) 08/22/21 05:18 RBC Morph Micro Appear 2+ HYPOCHROMASIA (NORMAL) 08/23/21 05:00 Sodium 134 mmol/L (135-145) L 08/24/21 05:50 Potassium 3.7 mmol/L (3.5-5.0) 08/24/21 05:50 Chloride 104 mmol/L (101-111) 08/24/21 05:50 Carbon Dioxide 22 mmol/L (21-32) 08/24/21 05:50 Anion Gap 8.0 (6-13) 08/24/21 05:50 BUN 18 mg/dL (6-20) 08/24/21 05:50 Creatinine 0.8 mg/dL (0.6-1.2) 08/24/21 05:50 Estimated GFR (MDRD) 95 (>89) 08/24/21 05:50 Glucose 205 mg/dL (70-100) H 08/24/21 05:50 POC Whole Bld Glucose 248 mg/dL (70 - 100) H 08/23/21 20:01 Lactic Acid 1.0 mmol/L (0.5-2.2) 08/19/21 18:36 Calcium 8.1 mg/dL (8.5-10.3) L 08/24/21 05:50 Phosphorus 2.7 mg/dL (2.5-4.6) 08/24/21 05:50 Magnesium 1.6 mg/dL (1.7-2.8) L 08/24/21 05:50 Total Bilirubin 1.4 mg/dL (0.2-1.0) H 08/19/21 18:36 AST 81 IU/L (10-42) H 08/19/21 18:36 ALT 68 IU/L (10-60) H 08/19/21 18:36 Alkaline Phosphatase 105 IU/L (42-121) 08/19/21 18:36 Total Protein 6.6 g/dL (6.7-8.2) L 08/19/21 18:36 Albumin 3.6 g/dL (3.2-5.5) 08/19/21 18:36 Globulin 3.0 g/dL (2.1-4.2) 08/19/21 18:36 Albumin/Globulin Ratio 1.2 (1.0-2.2) 08/19/21 18:36 Urine Color YELLOW 08/20/21 00:09 Urine Clarity CLEAR (CLEAR) 08/20/21 00:09 Urine pH 5.0 PH (5.0-7.5) 08/20/21 00:09 Ur Specific [place] 1.015 (1.002-1.030) 08/20/21 00:09 Urine Protein NEGATIVE mg/dL (NEGATIVE) 08/20/21 00:09 Urine Glucose (UA) NEGATIVE mg/dL (NEGATIVE) 08/20/21 00:09 Urine Ketones NEGATIVE mg/dL (NEGATIVE) 08/20/21 00:09 Urine Occult Blood NEGATIVE (NEGATIVE) 08/20/21 00:09 Urine Nitrite NEGATIVE (NEGATIVE) 08/20/21 00:09 Urine Bilirubin NEGATIVE (NEGATIVE) 08/20/21 00:09 Urine Urobilinogen 0.2 (NORMAL) E.U./dL (NORMAL) 08/20/21 00:09 Ur Leukocyte Esterase NEGATIVE (NEGATIVE) 08/20/21 00:09 Urine RBC None Seen /HPF (0-5) 08/20/21 00:09 Urine WBC 0-3 /HPF (0-3) 08/20/21 00:09 Ur Squamous Epith Cells RARE Squamous (<= Few) 08/20/21 00:09 Urine Bacteria Rare /HPF (None Seen) 08/20/21 00:09 Urine Casts 0-2 Hyaline Casts /LPF 08/20/21 00:09 Urine Culture Comments NOT INDICATED 08/20/21 00:09 Nasal Adenovirus (PCR) NOT DETECTED 08/19/21 18:30 Nasal B. parapertussis DNA (PCR) NOT DETECTED 08/19/21 18:30 Nasal Coronavir 229E PCR NOT DETECTED 08/19/21 18:30 Nasal Coronavir HKU1 PCR NOT DETECTED 08/19/21 18:30 Nasal Coronavir NL63 PCR NOT DETECTED 08/19/21 18:30 Nasal Coronavir OC43 PCR NOT DETECTED 08/19/21 18:30 Nasal Enterovir/Rhinovir PCR NOT DETECTED 08/19/21 18:30 Nasal Influenza B PCR NOT DETECTED 08/19/21 18:30 Nasal Influenza A PCR NOT DETECTED 08/19/21 18:30 Nasal Parainfluen 1 PCR NOT DETECTED 08/19/21 18:30 Nasal Parainfluen 2 PCR NOT DETECTED 08/19/21 18:30 Nasal Parainfluen 3 PCR NOT DETECTED 08/19/21 18:30 Nasal Parainfluen 4 PCR NOT DETECTED 08/19/21 18:30 Nasal RSV (PCR) NOT DETECTED 08/19/21 18:30 Nasal B.pertussis DNA PCR NOT DETECTED 08/19/21 18:30 Nasal C.pneumoniae (PCR) NOT DETECTED 08/19/21 18:30 Tin Human Metapneumo PCR NOT DETECTED 08/19/21 18:30 Nasal M.pneumoniae (PCR) NOT DETECTED 08/19/21 18:30 Nasal SARS-CoV-2 (PCR) NOT DETECTED 08/19/21 18:30 Stl C. diff Tox B Gene NEGATIVE (NEGATIVE) 08/19/21 19:53 Blood Type O NEGATIVE 08/20/21 05:10 Antibody Screen POSITIVE 08/20/21 05:10 Antibody Identification See Comments 08/20/21 05:10 JANET, IgG Specific POSITIVE 08/20/21 05:10 JANET, Polyspecific Not Reportable 08/20/21 05:10 JANET, C3d Specific NEGATIVE 08/20/21 05:10 Crossmatch See Detail 08/20/21 05:10 - Procedures Procedures: Procedures TRANSFUSE NONAUT RED BLOOD CELLS IN PERIPH VEIN, PERC (11/25/20) ABX Reporting Has patient been on IV antibiotics over the past 48 hours?: Yes
[2021-08-24] MEDS: NEUTRA-PHOS 250 MG TABLET PO SCH ×3 (08:25→16:56)
[2021-08-24] MEDS: INSULIN ASPART 300 UNIT/3 ML PEN SUBQ SCH ×4 (08:25→20:45)
[2021-08-24] MEDS: MULTIVITAMIN W/MINERALS TABLET PO SCH (08:25)
[2021-08-24] MEDS: ACYCLOVIR 200 MG CAPSULE PO SCH ×2 (08:25→20:45)
[2021-08-24] MEDS: CHOLECALCIFEROL 25 MCG TABLET PO SCH (08:26)
[2021-08-24] MEDS: allopurinoL 100 MG TABLET PO SCH (08:26)
[2021-08-24] MEDS: TAMSULOSIN 0.4 MG CAPSULE PO SCH (08:26)
[2021-08-24 08:40] LABS: DIFFERENTIAL COMMENT MANUAL=AUTO DIFF; PLATELET ESTIMATE, MANUAL DECREASED (<130,000) (NORMAL)
[2021-08-24] MEDS ORDERED: INSULIN ASPART 300 UNIT/3 ML PEN SUBQ ONE (11:42)
[2021-08-24] MEDS ORDERED: MAGNESIUM SULFATE 2 GRAM 2 GM/50 ML BAG IV ONE (11:43)
[2021-08-24] MEDS: INSULIN GLARGINE 300 UNIT/3 ML PEN SUBQ SCH (20:45)
[2021-08-25] MEDS: CIPROFLOXACIN 400 MG/200 ML 400 MG/200 ML BAG IV SCH ×2 (02:06→13:27)
[2021-08-25] MEDS: SODIUM CHLORIDE FLUSH 0.9% 10 ML SYRINGE IVP SCH ×3 (02:06→16:53)
[2021-08-25] MEDS: ACETAMINOPHEN 325 MG TABLET PO PRN (03:53)
[2021-08-25] MEDS: metroNIDAZOLE 500 MG/100 ML 500 MG/100 ML BAG IV SCH ×3 (05:14→21:46)
[2021-08-25] MEDS: PANTOPRAZOLE 40 MG TABLET PO SCH (05:14)
[2021-08-25 05:59] LABS: EOSINOPHILS % (AUTO) 6.1 %; HCT - HEMATOCRIT 22.8 % (42.0-52.0); HGB - HEMOGLOBIN 7.7 g/dL (14.0-18.0); LYMPHOCYTES % (AUTO) 60.6 %; MEAN CORPUSCULAR HEMOGLOBIN 30.6 pg (27.0-31.0); MEAN CORPUSCULAR HGB CONC 33.8 g/dL (32.0-36.0); MEAN CORPUSCULAR VOLUME 90.5 fL (80.0-94.0); MEAN PLATELET VOLUME 14.5 fL (7.4-11.4); MONOCYTES % (AUTO) 7.6 %; NEUTROPHILS % (AUTO) 15.1 %; RED BLOOD COUNT 2.52 10^6/uL (4.70-6.10); RED CELL DISTRIBUTION WIDTH 16.1 % (12.0-15.0)
[2021-08-25 06:07] LABS: PLT - PLATELET COUNT 18 10^3/uL (130-450); WHITE BLOOD COUNT 0.7 x10^3/uL (4.8-10.8)
[2021-08-25 06:08] LABS: ABNORMAL LYMPHS % (MANUAL) 0 %; BAND NEUTROPHILS % (MANUAL) 0 %
[2021-08-25 06:10] LABS: CALCIUM 7.9 mg/dL (8.5-10.3); CREATININE 0.8 mg/dL (0.6-1.2); MAGNESIUM 1.7 mg/dL (1.7-2.8); PHOSPHORUS 3.5 mg/dL (2.5-4.6); POTASSIUM 3.6 mmol/L (3.5-5.0)
[2021-08-25 06:19] LABS: BASOPHILS % (MANUAL) 2 %; LYMPHOCYTES # (MANUAL) 0.4 10^3/uL (1.5-3.5); LYMPHOCYTES % (MANUAL) 64 %; NEUTROPHILS # (MANUAL) 0.2 10^3/uL (1.5-6.6)
[2021-08-25 06:20] LABS: PLATELET ESTIMATE, MANUAL DECREASED (<130,000) (NORMAL); PLATELET MORPHOLOGY NORMAL APPEARANCE (NORMAL)
[2021-08-25 06:21] LABS: DIFFERENTIAL COMMENT MANUAL DIFFERENTIAL; WBC MORPHOLOGY (MULTIPLE) NORMAL APPEARANCE (NORMAL)
--- NOTE | 2021-08-25 07:25 | PROVIDER PROGRESS NOTE ---
Assessment/Plan - Problem List (1) Neutropenic fever Assessment/Plan: 08/25 WBC today is 0.7. ANC 0.2 Platelets 18, Hgb 7.7 Will continue Cipro and flagyl IV. Continue to anticipate improvement. 08/24 WBC today is 0.8. Platelets 21, Hgb 7.9 Will continue Cipro and flagyl IV. Anticipating further improvement. 08/23 Dropped from 0.9 down to 0.6 today. Absolute neutrophil count is 0.2. Patient has been afebrile for at least [address] of the abdomen/pelvis done on 08/23/2021 showed Significant wall thickening involving distal descending colon, sigmoid colon and rectum which may represent infectious or inflammatory colitis. Cefepime was discontinued. Patient started on Cipro and Flagyl twice daily IV on 08/23/2021. 08/22 White blood cell count dropped from 1.7 yesterday down to 0.9 today. Patient spiked a temperature of 38.2 C today. As a result Bactrim was discontinued and patient was resumed on cefepime 2 g every 8 hours IV. Blood cultures were drawn prior to IV antibiotic administration. On acyclovir 400 mg p.o. twice daily. (2) Myelodysplasia (myelodysplastic syndrome) Assessment/Plan: 08/25 WBC today is 0.7. ANC 0.2 Platelets 18, Hgb 7.7 08/24 WBC today is 0.8. Platelets 21, Hgb 7.9 08/23 Hemoglobin was 6.8 this morning. Patient transfused 2 units of irradiated packed red blood cells. Platelet is 21. Absolute neutrophil count is 0.2 with white blood cell count of 0.6. 08/22 Patient was supposed to see Dr. Ross in the outpatient setting yesterday 08/21/2021. He was seen by Dr. Ross inpatient at [facility] His Vidaza and study drug at [facility] for 08/21 were postponed to 08/28. Then the plan after that would be to continue the rest of the Vidaza doses at the [facility] clinic at [facility]. Azacitadine IV 7days of 28 day cycle Transfusion threshold for irradiated PRBCs less than 7 seconds 2 units irradiated. Platelets 1 unit if count less than 10 or bleeding. (3) Colitis Assessment/Plan: CT of the abdomen/pelvis done on 08/23/2021 showed significant wall thickening involving distal descending colon, sigmoid colon and rectum which may represent infectious or inflammatory colitis. Cefepime was discontinued. Patient started on Cipro and Flagyl IV on 08/23/2021. (4) Diarrhea Qualifiers: Diarrhea type: unspecified type Qualified Code(s): R19.7 - Diarrhea, unspecified Assessment/Plan: Improving Likely related to colitis. Continue IV antibiotics. (5) Hypokalemia Assessment/Plan: Improved/resolved. Potassium is 3.6 this morning. (6) History of pulmonary embolus (PE) Assessment/Plan: Eliquis currently on hold due to thrombocytopenia with a platelet count of 18. (7) Type 2 diabetes mellitus, controlled Qualifiers: Assessment/Plan: Lantus increased to 15 units subcu every afternoon. Sliding scale insulin. Accu-Cheks before every meal and at bedtime. - Current Meds Current Meds: Current Medications Generic Name Dose Route Start Last Admin Trade Name Freq PRN Reason Stop Dose Admin Acetaminophen 650 mg 08/19/21 20:00 08/25/21 03:53 Acetaminophen 325 Mg Tablet PO 650 mg Q4HR PRN Administration Pain 1 to 4 Acyclovir 400 mg 08/21/21 14:00 08/24/21 20:45 Acyclovir 200 Mg Capsule PO 400 mg BID ANUSHA Administration Allopurinol 300 mg 08/21/21 14:00 08/24/21 08:26 Allopurinol 100 Mg Tablet PO 300 mg DAILY ANUSHA Administration Cholecalciferol 50 mcg 08/23/21 09:00 08/24/21 08:26 Cholecalciferol 25 Mcg Tablet PO 50 mcg DAILY ANUSHA Administration Diphenoxylate HCl/Atropine 1 tab 08/20/21 12:34 08/24/21 12:25 Diphenox/Atropine 2.5/0.025 Mg Tablet PO 1 tab QID PRN Administration Diarrhea Heparin Sodium (Beef Lung) 30 - 50 unit 08/20/21 15:37 08/23/21 20:36 Heparin Flush 50 Units/5 Ml Syringe IVP 50 unit PRN PRN Administration Port Protocol (<24 hours) Ciprofloxacin 400 mg in 200 mls @ 200 mls/hr 08/23/21 14:00 08/25/21 03:06 Cipro 400 Mg/200 Ml IV Infused Q12H ANUSHA Infusion Metronidazole 500 mg in 100 mls @ 100 mls/hr 08/23/21 14:00 08/25/21 06:14 Flagyl 500 Mg/100 Ml IV Infused Q8H ANUSHA Infusion Insulin Aspart 3 - 11 unit 08/23/21 17:00 08/24/21 20:45 Insulin Aspart 300 Unit/3 Ml Pen SUBQ 7 unit 0800,1200,1700,2100 ANUSHA Administration Protocol Insulin Glargine 15 unit 08/24/21 21:00 08/24/21 20:45 Insulin Glargine 300 Unit/3 Ml Pen SUBQ 15 unit QPM ANUSHA Administration Multivitamins/Minerals 1 tab 08/23/21 08:00 08/24/21 08:25 Multivitamin W/Minerals Tablet PO 1 tab DAILYWM ANUSHA Administration Pantoprazole Sodium 40 mg 08/20/21 07:00 08/25/21 05:14 Pantoprazole 40 Mg Tablet PO 40 mg QDAC ANUSHA Administration Sodium Chloride 10 ml 08/19/21 20:00 08/19/21 22:44 Sodium Chloride Flush 0.9% 10 Ml Syringe IVP 10 ml PRN PRN Administration NEEDED PER PROVIDER ORDERS Sodium Chloride 10 ml 08/20/21 01:00 08/25/21 02:06 Sodium Chloride Flush 0.9% 10 Ml Syringe IVP 10 ml 0100,0900,1700 ANUSHA Administration Tamsulosin HCl 0.4 mg 08/20/21 13:00 08/24/21 08:26 Tamsulosin 0.4 Mg Capsule PO 0.4 mg DAILY ANUSHA Administration Throat Lozenges 1 lozenge 08/22/21 23:44 08/23/21 00:10 Benzocaine/Menthol Lozenge MM 1 lozenge Q2HR PRN Administration Throat pain - Lab Result Fish Bone Diagrams: 08/25/21 05:50 08/25/21 05:50 - Additional Planning My Orders: My Active Orders 08/24/21 21:00 Insulin Glargine [Lantus Solostar] 15 unit SUBQ QPM 08/25/21 05:50 HEMOGLOBIN A1c% [CHEM] DAILYLAB Subjective - Subjective Patient Reports: Other (Resting comfortably in bed. Denied any complaints. A bit upset about the not going home today due to continued low white blood cell count and ANC 0.2.) Objective Vital Signs: Vital Signs - 24 hr 08/24/21 08/24/21 08/24/21 08:24 12:38 16:12 Temperature 36.3 C L 36.1 C L 36.7 C Heart Rate [ 59 L 53 L 58 L Brachial] Respiratory 17 17 16 Rate Blood Pressure 131/53 H 139/61 H 153/61 H [Right Brachial artery] O2 Saturation 100 100 100 08/24/21 08/25/21 08/25/21 20:56 00:45 05:16 Temperature 36.4 C L 36.5 C 36.8 C Heart Rate [ 67 61 54 L Brachial] Respiratory 16 18 18 Rate Blood Pressure 162/71 H 131/70 H 137/64 H [Right Brachial artery] O2 Saturation 100 100 98 Oxygen O2 Source CPAP I&O (Last 24 Hrs): Intake and Output Totals x24h 08/23/21 08/24/21 08/25/21 23:59 23:59 23:59 Intake Total 2220 2130 500 Output Total 1300 1250 450 Balance 920 880 50 Comments/Notes: GEN: AOX3, NAD HEENT: PERRLA, EOMI Neck: Supple, No JVD Neuro: Alert, Non Focal, Oriented Times 3 Cardiovascular: Regular rate, Normal S1, Normal S2 Respiratory: Chest non-tender, No respiratory distress, Breath sounds nml Abdomen: Normal bowel sounds, Soft, No tenderness Extremities: No clubbing, No cyanosis, No edema Skin: No rashes, No breakdown - Results Results: Laboratory Results WBC 0.7 x10^3/uL (4.8-10.8) L* 08/25/21 05:50 RBC 2.52 10^6/uL (4.70-6.10) L 08/25/21 05:50 Hgb 7.7 g/dL (14.0-18.0) L 08/25/21 05:50 Hct 22.8 % (42.0-52.0) L 08/25/21 05:50 MCV 90.5 fL (80.0-94.0) 08/25/21 05:50 MCH 30.6 pg (27.0-31.0) 08/25/21 05:50 MCHC 33.8 g/dL (32.0-36.0) 08/25/21 05:50 RDW 16.1 % (12.0-15.0) H 08/25/21 05:50 Plt Count 18 10^3/uL (130-450) L* 08/25/21 05:50 MPV 14.5 fL (7.4-11.4) H 08/25/21 05:50 Neut # (Auto) Not Reportable 08/25/21 05:50 Lymph # (Auto) Not Reportable 08/25/21 05:50 [place] # (Auto) Not Reportable 08/25/21 05:50 Eos # (Auto) Not Reportable 08/25/21 05:50 Baso # (Auto) Not Reportable 08/25/21 05:50 Absolute Nucleated RBC Not Reportable 08/25/21 05:50 Total Counted 50 08/25/21 05:50 Band Neuts % (Manual) 0 % (0-10) 08/25/21 05:50 Abnorm Lymph % (Manual) 0 % 08/25/21 05:50 Blast Cells % 1 % H* 08/19/21 18:36 Nucleated RBC % Not Reportable 08/25/21 05:50 Neutrophils # (Manual) 0.2 10^3/uL (1.5-6.6) L* 08/25/21 05:50 Lymphocytes # (Manual) 0.4 10^3/uL (1.5-3.5) L 08/25/21 05:50 Monocytes # (Manual) 0.0 10^3/uL (0.0-1.0) 08/25/21 05:50 Eosinophils # (Manual) 0.0 10^3/uL (0-0.7) 08/25/21 05:50 Basophils # (Manual) 0.0 10^3/uL (0-0.1) 08/25/21 05:50 Differential Comment MANUAL DIFFERENTIAL 08/25/21 05:50 WBC Morphology NORMAL APPEARANCE (NORMAL) 08/25/21 05:50 Platelet Estimate DECREASED (<130,000) (NORMAL) 08/25/21 05:50 Platelet Morphology NORMAL APPEARANCE (NORMAL) 08/25/21 05:50 RBC Morph Micro Appear 1+ ANISOCYTOSIS (NORMAL) 1+ HYPOCHROMASIA (NORMAL) 08/25/21 05:50 RBC Morph Micro Appear 1+ ANISOCYTOSIS (NORMAL) 1+ HYPOCHROMASIA (NORMAL) 08/25/21 05:50 Sodium 135 mmol/L (135-145) 08/25/21 05:50 Potassium 3.6 mmol/L (3.5-5.0) 08/25/21 05:50 Chloride 102 mmol/L (101-111) 08/25/21 05:50 Carbon Dioxide 24 mmol/L (21-32) 08/25/21 05:50 Anion Gap 9.0 (6-13) 08/25/21 05:50 BUN 18 mg/dL (6-20) 08/25/21 05:50 Creatinine 0.8 mg/dL (0.6-1.2) 08/25/21 05:50 Estimated GFR (MDRD) 95 (>89) 08/25/21 05:50 Glucose 197 mg/dL (70-100) H 08/25/21 05:50 POC Whole Bld Glucose 235 mg/dL (70 - 100) H 08/24/21 20:44 Lactic Acid 1.0 mmol/L (0.5-2.2) 08/19/21 18:36 Calcium 7.9 mg/dL (8.5-10.3) L 08/25/21 05:50 Phosphorus 3.5 mg/dL (2.5-4.6) 08/25/21 05:50 Magnesium 1.7 mg/dL (1.7-2.8) 08/25/21 05:50 Total Bilirubin 1.4 mg/dL (0.2-1.0) H 08/19/21 18:36 AST 81 IU/L (10-42) H 08/19/21 18:36 ALT 68 IU/L (10-60) H 08/19/21 18:36 Alkaline Phosphatase 105 IU/L (42-121) 08/19/21 18:36 Total Protein 6.6 g/dL (6.7-8.2) L 08/19/21 18:36 Albumin 3.6 g/dL (3.2-5.5) 08/19/21 18:36 Globulin 3.0 g/dL (2.1-4.2) 08/19/21 18:36 Albumin/Globulin Ratio 1.2 (1.0-2.2) 08/19/21 18:36 Urine Color YELLOW 08/20/21 00:09 Urine Clarity CLEAR (CLEAR) 08/20/21 00:09 Urine pH 5.0 PH (5.0-7.5) 08/20/21 00:09 Ur Specific [place] 1.015 (1.002-1.030) 08/20/21 00:09 Urine Protein NEGATIVE mg/dL (NEGATIVE) 08/20/21 00:09 Urine Glucose (UA) NEGATIVE mg/dL (NEGATIVE) 08/20/21 00:09 Urine Ketones NEGATIVE mg/dL (NEGATIVE) 08/20/21 00:09 Urine Occult Blood NEGATIVE (NEGATIVE) 08/20/21 00:09 Urine Nitrite NEGATIVE (NEGATIVE) 08/20/21 00:09 Urine Bilirubin NEGATIVE (NEGATIVE) 08/20/21 00:09 Urine Urobilinogen 0.2 (NORMAL) E.U./dL (NORMAL) 08/20/21 00:09 Ur Leukocyte Esterase NEGATIVE (NEGATIVE) 08/20/21 00:09 Urine RBC None Seen /HPF (0-5) 08/20/21 00:09 Urine WBC 0-3 /HPF (0-3) 08/20/21 00:09 Ur Squamous Epith Cells RARE Squamous (<= Few) 08/20/21 00:09 Urine Bacteria Rare /HPF (None Seen) 08/20/21 00:09 Urine Casts 0-2 Hyaline Casts /LPF 08/20/21 00:09 Urine Culture Comments NOT INDICATED 08/20/21 00:09 Nasal Adenovirus (PCR) NOT DETECTED 08/19/21 18:30 Nasal B. parapertussis DNA (PCR) NOT DETECTED 08/19/21 18:30 Nasal Coronavir 229E PCR NOT DETECTED 08/19/21 18:30 Nasal Coronavir HKU1 PCR NOT DETECTED 08/19/21 18:30 Nasal Coronavir NL63 PCR NOT DETECTED 08/19/21 18:30 Nasal Coronavir OC43 PCR NOT DETECTED 08/19/21 18:30 Nasal Enterovir/Rhinovir PCR NOT DETECTED 08/19/21 18:30 Nasal Influenza B PCR NOT DETECTED 08/19/21 18:30 Nasal Influenza A PCR NOT DETECTED 08/19/21 18:30 Nasal Parainfluen 1 PCR NOT DETECTED 08/19/21 18:30 Nasal Parainfluen 2 PCR NOT DETECTED 08/19/21 18:30 Nasal Parainfluen 3 PCR NOT DETECTED 08/19/21 18:30 Nasal Parainfluen 4 PCR NOT DETECTED 08/19/21 18:30 Nasal RSV (PCR) NOT DETECTED 08/19/21 18:30 Nasal B.pertussis DNA PCR NOT DETECTED 08/19/21 18:30 Nasal C.pneumoniae (PCR) NOT DETECTED 08/19/21 18:30 Tin Human Metapneumo PCR NOT DETECTED 08/19/21 18:30 Nasal M.pneumoniae (PCR) NOT DETECTED 08/19/21 18:30 Nasal SARS-CoV-2 (PCR) NOT DETECTED 08/19/21 18:30 Stl C. diff Tox B Gene NEGATIVE (NEGATIVE) 08/19/21 19:53 Ref Lab Test Result REPORT 08/20/21 05:49 Blood Type O NEGATIVE 08/20/21 05:10 Antibody Screen POSITIVE 08/20/21 05:10 Antibody Identification See Comments 08/20/21 05:10 JANET, IgG Specific POSITIVE 08/20/21 05:10 JANET, Polyspecific Not Reportable 08/20/21 05:10 JANET, C3d Specific NEGATIVE 08/20/21 05:10 Crossmatch See Detail 08/20/21 05:10 - Procedures Procedures: Procedures TRANSFUSE NONAUT RED BLOOD CELLS IN PERIPH VEIN, PERC (11/25/20) ABX Reporting Has patient been on IV antibiotics over the past 48 hours?: Yes
[2021-08-25] MEDS: INSULIN ASPART 300 UNIT/3 ML PEN SUBQ SCH ×4 (08:56→21:46)
[2021-08-25] MEDS: CHOLECALCIFEROL 25 MCG TABLET PO SCH (08:57)
[2021-08-25] MEDS: ACYCLOVIR 200 MG CAPSULE PO SCH ×2 (08:57→21:46)
[2021-08-25] MEDS: TAMSULOSIN 0.4 MG CAPSULE PO SCH (08:57)
[2021-08-25] MEDS: MULTIVITAMIN W/MINERALS TABLET PO SCH (08:57)
[2021-08-25] MEDS: allopurinoL 100 MG TABLET PO SCH (08:57)
[2021-08-25 12:44] LABS: ESTIMATED AVERAGE GLUCOSE 154 mg/dL (70-100)
[2021-08-25] MEDS: INSULIN GLARGINE 300 UNIT/3 ML PEN SUBQ SCH (21:47)
[2021-08-26] MEDS: ACETAMINOPHEN 325 MG TABLET PO PRN (01:17)
[2021-08-26] MEDS: CIPROFLOXACIN 400 MG/200 ML 400 MG/200 ML BAG IV SCH ×2 (01:18→13:29)
[2021-08-26 05:51] LABS: BASOPHILS % (AUTO) 2.5 %; EOSINOPHILS % (AUTO) 7.5 %; HCT - HEMATOCRIT 22.8 % (42.0-52.0); HGB - HEMOGLOBIN 7.6 g/dL (14.0-18.0); LYMPHOCYTES % (AUTO) 56.3 %; MEAN CORPUSCULAR HEMOGLOBIN 29.9 pg (27.0-31.0); MEAN CORPUSCULAR HGB CONC 33.3 g/dL (32.0-36.0); MEAN CORPUSCULAR VOLUME 89.8 fL (80.0-94.0); MEAN PLATELET VOLUME 10.9 fL (7.4-11.4); MONOCYTES % (AUTO) 8.8 %; NEUTROPHILS % (AUTO) 12.4 %; RED BLOOD COUNT 2.54 10^6/uL (4.70-6.10); RED CELL DISTRIBUTION WIDTH 15.9 % (12.0-15.0)
[2021-08-26 05:56] LABS: PLT - PLATELET COUNT 19 10^3/uL (130-450); WHITE BLOOD COUNT 0.8 x10^3/uL (4.8-10.8)
[2021-08-26 05:57] LABS: ABNORMAL LYMPHS % (MANUAL) 0 %
[2021-08-26 05:59] LABS: CREATININE 0.8 mg/dL (0.6-1.2); MAGNESIUM 1.6 mg/dL (1.7-2.8); PHOSPHORUS 3.4 mg/dL (2.5-4.6); POTASSIUM 3.5 mmol/L (3.5-5.0)
[2021-08-26 06:19] LABS: BAND NEUTROPHILS % (MANUAL) 1 %; DIFFERENTIAL COMMENT MANUAL DIFFERENTIAL; EOSINOPHILS # (MANUAL) 0.1 10^3/uL (0-0.7); LYMPHOCYTES # (MANUAL) 0.5 10^3/uL (1.5-3.5); LYMPHOCYTES % (MANUAL) 68 %; MONOCYTES # (MANUAL) 0.1 10^3/uL (0.0-1.0); NEUTROPHILS # (MANUAL) 0.1 10^3/uL (1.5-6.6); PLATELET ESTIMATE, MANUAL DECREASED (<130,000) (NORMAL); PLATELET MORPHOLOGY NORMAL APPEARANCE (NORMAL); WBC MORPHOLOGY (MULTIPLE) NORMAL APPEARANCE (NORMAL)
[2021-08-26] MEDS: PANTOPRAZOLE 40 MG TABLET PO SCH (06:57)
[2021-08-26] MEDS: metroNIDAZOLE 500 MG/100 ML 500 MG/100 ML BAG IV SCH ×3 (06:57→21:31)
[2021-08-26] MEDS: INSULIN ASPART 300 UNIT/3 ML PEN SUBQ SCH ×4 (07:54→21:31)
[2021-08-26] MEDS: MULTIVITAMIN W/MINERALS TABLET PO SCH (07:55)
--- NOTE | 2021-08-26 08:23 | PROVIDER PROGRESS NOTE ---
Assessment/Plan - Problem List (1) Neutropenic fever Assessment/Plan: 08/26 WBC today is 0.8. ANC 0.1 Platelets 19, Hgb 7.6 Will continue Cipro and flagyl IV. If patient remains afebrile today, plan to discharge the patient tomorrow 08/27/2021 so that he will follow up with oncology in [place] the following day. 08/25 WBC today is 0.7. ANC 0.2 Platelets 18, Hgb 7.7 Will continue Cipro and flagyl IV. Continue to anticipate improvement. 08/24 WBC today is 0.8. Platelets 21, Hgb 7.9 Will continue Cipro and flagyl IV. Anticipating further improvement. 08/23 Dropped from 0.9 down to 0.6 today. Absolute neutrophil count is 0.2. Patient has been afebrile for at least [address] of the abdomen/pelvis done on 08/23/2021 showed Significant wall thickening involving distal descending colon, sigmoid colon and rectum which may represent infectious or inflammatory colitis. Cefepime was discontinued. Patient started on Cipro and Flagyl twice daily IV on 08/23/2021. 08/22 White blood cell count dropped from 1.7 yesterday down to 0.9 today. Patient spiked a temperature of 38.2 C today. As a result Bactrim was discontinued and patient was resumed on cefepime 2 g every 8 hours IV. Blood cultures were drawn prior to IV antibiotic administration. On acyclovir 400 mg p.o. twice daily. (2) Myelodysplasia (myelodysplastic syndrome) Assessment/Plan: 08/26 WBC today is 0.8. ANC 0.1 Platelets 19, Hgb 7.6 Will continue Cipro and flagyl IV. If patient remains afebrile today, plan to discharge the patient tomorrow 08/27/2021 so that he will follow up with oncology in [place] the following day. 08/25 WBC today is 0.7. ANC 0.2 Platelets 18, Hgb 7.7 08/24 WBC today is 0.8. Platelets 21, Hgb 7.9 08/23 Hemoglobin was 6.8 this morning. Patient transfused 2 units of irradiated packed red blood cells. Platelet is 21. Absolute neutrophil count is 0.2 with white blood cell count of 0.6. 08/22 Patient was supposed to see Dr. Ross in the outpatient setting yesterday 08/21/2021. He was seen by Dr. Ross inpatient at [facility] His Vidaza and study drug at [facility] for 08/21 were postponed to 08/28. Then the plan after that would be to continue the rest of the Vidaza doses at the [facility] clinic at [facility]. Azacitadine IV 7days of 28 day cycle Transfusion threshold for irradiated PRBCs less than 7 seconds 2 units irradiated. Platelets 1 unit if count less than 10 or bleeding. (3) Colitis Assessment/Plan: CT of the abdomen/pelvis done on 08/23/2021 showed significant wall thickening involving distal descending colon, sigmoid colon and rectum which may represent infectious or inflammatory colitis. Cefepime was discontinued. Patient started on Cipro and Flagyl IV on 08/23/2021. (4) Diarrhea Qualifiers: Diarrhea type: unspecified type Qualified Code(s): R19.7 - Diarrhea, unspecified Assessment/Plan: Improving Likely related to colitis. Continue IV antibiotics. (5) Hypokalemia Assessment/Plan: Improved/resolved. Potassium is 3.5 this morning. (6) History of pulmonary embolus (PE) Assessment/Plan: Eliquis currently on hold due to thrombocytopenia with a platelet count of 18. (7) Type 2 diabetes mellitus, controlled Qualifiers: Assessment/Plan: Lantus increased to 15 units subcu every afternoon. Sliding scale insulin. Accu-Cheks before every meal and at bedtime. - Current Meds Current Meds: Current Medications Generic Name Dose Route Start Last Admin Trade Name Kendallq PRN Reason Stop Dose Admin Acetaminophen 650 mg 08/19/21 20:00 08/26/21 01:17 Acetaminophen 325 Mg Tablet PO 650 mg Q4HR PRN Administration Pain 1 to 4 Acyclovir 400 mg 08/21/21 14:00 08/25/21 21:46 Acyclovir 200 Mg Capsule PO 400 mg BID ANUSHA Administration Allopurinol 300 mg 08/21/21 14:00 08/25/21 08:57 Allopurinol 100 Mg Tablet PO 300 mg DAILY ANUSHA Administration Cholecalciferol 50 mcg 08/23/21 09:00 08/25/21 08:57 Cholecalciferol 25 Mcg Tablet PO 50 mcg DAILY ANUSHA Administration Diphenoxylate HCl/Atropine 1 tab 08/20/21 12:34 08/24/21 12:25 Diphenox/Atropine 2.5/0.025 Mg Tablet PO 1 tab QID PRN Administration Diarrhea Heparin Sodium (Beef Lung) 30 - 50 unit 08/20/21 15:37 08/23/21 20:36 Heparin Flush 50 Units/5 Ml Syringe IVP 50 unit PRN PRN Administration Port Protocol (<24 hours) Ciprofloxacin 400 mg in 200 mls @ 200 mls/hr 08/23/21 14:00 08/26/21 02:27 Cipro 400 Mg/200 Ml IV Infused Q12H ANUSHA Infusion Metronidazole 500 mg in 100 mls @ 100 mls/hr 08/23/21 14:00 08/26/21 06:57 Flagyl 500 Mg/100 Ml IV 100 mls/hr Q8H ANUSHA Administration Insulin Aspart 3 - 11 unit 08/23/21 17:00 08/26/21 07:54 Insulin Aspart 300 Unit/3 Ml Pen SUBQ 3 unit 0800,1200,1700,2100 ANUSHA Administration Protocol Insulin Glargine 15 unit 08/24/21 21:00 08/25/21 21:47 Insulin Glargine 300 Unit/3 Ml Pen SUBQ 15 unit QPM ANUSHA Administration Multivitamins/Minerals 1 tab 08/23/21 08:00 08/26/21 07:55 Multivitamin W/Minerals Tablet PO 1 tab DAILYWM ANUSHA Administration Pantoprazole Sodium 40 mg 08/20/21 07:00 08/26/21 06:57 Pantoprazole 40 Mg Tablet PO 40 mg QDAC ANUSHA Administration Sodium Chloride 10 ml 08/19/21 20:00 08/19/21 22:44 Sodium Chloride Flush 0.9% 10 Ml Syringe IVP 10 ml PRN PRN Administration NEEDED PER PROVIDER ORDERS Sodium Chloride 10 ml 08/20/21 01:00 08/26/21 00:00 Sodium Chloride Flush 0.9% 10 Ml Syringe IVP 10 ml 0100,0900,1700 ANUSHA Administration Tamsulosin HCl 0.4 mg 08/20/21 13:00 08/25/21 08:57 Tamsulosin 0.4 Mg Capsule PO 0.4 mg DAILY ANUSHA Administration Throat Lozenges 1 lozenge 08/22/21 23:44 08/23/21 00:10 Benzocaine/Menthol Lozenge MM 1 lozenge Q2HR PRN Administration Throat pain - Lab Result Fish Bone Diagrams: 08/26/21 05:00 08/26/21 05:00 Subjective - Subjective Patient Reports: Other (Resting comfortably in bed. Denied any complaints.) Objective Vital Signs: Vital Signs - 24 hr 08/25/21 08/25/21 08/25/21 09:00 11:13 16:05 Temperature 36.7 C 36.5 C Heart Rate [ 54 L 51 L 62 Brachial] Respiratory 20 20 18 Rate Blood Pressure [Left Brachial artery] Blood Pressure 146/67 H 137/64 H 156/61 H [Right Brachial artery] O2 Saturation 98 100 100 08/25/21 08/26/21 08/26/21 21:00 00:27 06:15 Temperature 36.5 C 37 C 36.6 C Heart Rate [ 59 L 56 L 51 L Brachial] Respiratory 16 18 17 Rate Blood Pressure 134/49 H 131/55 H [Left Brachial artery] Blood Pressure 147/63 H [Right Brachial artery] O2 Saturation 100 99 98 08/26/21 07:40 Temperature 36.6 C Heart Rate [ 62 Brachial] Respiratory 14 Rate Blood Pressure [Left Brachial artery] Blood Pressure 141/70 H [Right Brachial artery] O2 Saturation 100 Oxygen O2 Source Room air I&O (Last 24 Hrs): Intake and Output Totals x24h 08/24/21 08/25/21 08/26/21 23:59 23:59 23:59 Intake Total 2130 2070.000 495 Output Total 1250 850 725 Balance 880 1220.000 -230 Comments/Notes: GEN: AOX3, NAD HEENT: PERRLA, EOMI Neck: Supple, No JVD Neuro: Alert, Non Focal, Oriented Times 3 Cardiovascular: Regular rate, Normal S1, Normal S2 Respiratory: Chest non-tender, No respiratory distress, Breath sounds nml Abdomen: Normal bowel sounds, Soft, No tenderness Extremities: No clubbing, No cyanosis, No edema Skin: No rashes, No breakdown - Results Results: Laboratory Results WBC 0.8 x10^3/uL (4.8-10.8) L* 08/26/21 05:00 RBC 2.54 10^6/uL (4.70-6.10) L 08/26/21 05:00 Hgb 7.6 g/dL (14.0-18.0) L 08/26/21 05:00 Hct 22.8 % (42.0-52.0) L 08/26/21 05:00 MCV 89.8 fL (80.0-94.0) 08/26/21 05:00 MCH 29.9 pg (27.0-31.0) 08/26/21 05:00 MCHC 33.3 g/dL (32.0-36.0) 08/26/21 05:00 RDW 15.9 % (12.0-15.0) H 08/26/21 05:00 Plt Count 19 10^3/uL (130-450) L* 08/26/21 05:00 MPV 10.9 fL (7.4-11.4) 08/26/21 05:00 Neut # (Auto) Not Reportable 08/26/21 05:00 Lymph # (Auto) Not Reportable 08/26/21 05:00 Motley # (Auto) Not Reportable 08/26/21 05:00 Eos # (Auto) Not Reportable 08/26/21 05:00 Baso # (Auto) Not Reportable 08/26/21 05:00 Absolute Nucleated RBC Not Reportable 08/26/21 05:00 Total Counted 100 08/26/21 05:00 Band Neuts % (Manual) 1 % (0-10) 08/26/21 05:00 Abnorm Lymph % (Manual) 0 % 08/26/21 05:00 Blast Cells % 1 % H* 08/19/21 18:36 Nucleated RBC % Not Reportable 08/26/21 05:00 Neutrophils # (Manual) 0.1 10^3/uL (1.5-6.6) L* 08/26/21 05:00 Lymphocytes # (Manual) 0.5 10^3/uL (1.5-3.5) L 08/26/21 05:00 Monocytes # (Manual) 0.1 10^3/uL (0.0-1.0) 08/26/21 05:00 Eosinophils # (Manual) 0.1 10^3/uL (0-0.7) 08/26/21 05:00 Basophils # (Manual) 0.0 10^3/uL (0-0.1) 08/26/21 05:00 Differential Comment MANUAL DIFFERENTIAL 08/26/21 05:00 WBC Morphology NORMAL APPEARANCE (NORMAL) 08/26/21 05:00 Platelet Estimate DECREASED (<130,000) (NORMAL) 08/26/21 05:00 Platelet Morphology NORMAL APPEARANCE (NORMAL) 08/26/21 05:00 RBC Morph Micro Appear 1+ ANISOCYTOSIS (NORMAL) 1+ HYPOCHROMASIA (NORMAL) 08/26/21 05:00 RBC Morph Micro Appear 1+ ANISOCYTOSIS (NORMAL) 1+ HYPOCHROMASIA (NORMAL) 08/26/21 05:00 Sodium 136 mmol/L (135-145) 08/26/21 05:00 Potassium 3.5 mmol/L (3.5-5.0) 08/26/21 05:00 Chloride 103 mmol/L (101-111) 08/26/21 05:00 Carbon Dioxide 25 mmol/L (21-32) 08/26/21 05:00 Anion Gap 8.0 (6-13) 08/26/21 05:00 BUN 17 mg/dL (6-20) 08/26/21 05:00 Creatinine 0.8 mg/dL (0.6-1.2) 08/26/21 05:00 Estimated GFR (MDRD) 95 (>89) 08/26/21 05:00 Glucose 171 mg/dL (70-100) H 08/26/21 05:00 POC Whole Bld Glucose 150 mg/dL (70 - 100) H 08/26/21 07:37 Estimat Average Glucose 154 mg/dL (70-100) H 08/25/21 05:50 Hemoglobin A1c % 7.0 % (4.27-6.07) H 08/25/21 05:50 Lactic Acid 1.0 mmol/L (0.5-2.2) 08/19/21 18:36 Calcium 8.0 mg/dL (8.5-10.3) L 08/26/21 05:00 Phosphorus 3.4 mg/dL (2.5-4.6) 08/26/21 05:00 Magnesium 1.6 mg/dL (1.7-2.8) L 08/26/21 05:00 Total Bilirubin 1.4 mg/dL (0.2-1.0) H 08/19/21 18:36 AST 81 IU/L (10-42) H 08/19/21 18:36 ALT 68 IU/L (10-60) H 08/19/21 18:36 Alkaline Phosphatase 105 IU/L (42-121) 08/19/21 18:36 Total Protein 6.6 g/dL (6.7-8.2) L 08/19/21 18:36 Albumin 3.6 g/dL (3.2-5.5) 08/19/21 18:36 Globulin 3.0 g/dL (2.1-4.2) 08/19/21 18:36 Albumin/Globulin Ratio 1.2 (1.0-2.2) 08/19/21 18:36 Urine Color YELLOW 08/20/21 00:09 Urine Clarity CLEAR (CLEAR) 08/20/21 00:09 Urine pH 5.0 PH (5.0-7.5) 08/20/21 00:09 Ur Specific Rayne 1.015 (1.002-1.030) 08/20/21 00:09 Urine Protein NEGATIVE mg/dL (NEGATIVE) 08/20/21 00:09 Urine Glucose (UA) NEGATIVE mg/dL (NEGATIVE) 08/20/21 00:09 Urine Ketones NEGATIVE mg/dL (NEGATIVE) 08/20/21 00:09 Urine Occult Blood NEGATIVE (NEGATIVE) 08/20/21 00:09 Urine Nitrite NEGATIVE (NEGATIVE) 08/20/21 00:09 Urine Bilirubin NEGATIVE (NEGATIVE) 08/20/21 00:09 Urine Urobilinogen 0.2 (NORMAL) E.U./dL (NORMAL) 08/20/21 00:09 Ur Leukocyte Esterase NEGATIVE (NEGATIVE) 08/20/21 00:09 Urine RBC None Seen /HPF (0-5) 08/20/21 00:09 Urine WBC 0-3 /HPF (0-3) 08/20/21 00:09 Ur Squamous Epith Cells RARE Squamous (<= Few) 08/20/21 00:09 Urine Bacteria Rare /HPF (None Seen) 08/20/21 00:09 Urine Casts 0-2 Hyaline Casts /LPF 08/20/21 00:09 Urine Culture Comments NOT INDICATED 08/20/21 00:09 Nasal Adenovirus (PCR) NOT DETECTED 08/19/21 18:30 Nasal B. parapertussis DNA (PCR) NOT DETECTED 08/19/21 18:30 Nasal Coronavir 229E PCR NOT DETECTED 08/19/21 18:30 Nasal Coronavir HKU1 PCR NOT DETECTED 08/19/21 18:30 Nasal Coronavir NL63 PCR NOT DETECTED 08/19/21 18:30 Nasal Coronavir OC43 PCR NOT DETECTED 08/19/21 18:30 Nasal Enterovir/Rhinovir PCR NOT DETECTED 08/19/21 18:30 Nasal Influenza B PCR NOT DETECTED 08/19/21 18:30 Nasal Influenza A PCR NOT DETECTED 08/19/21 18:30 Nasal Parainfluen 1 PCR NOT DETECTED 08/19/21 18:30 Nasal Parainfluen 2 PCR NOT DETECTED 08/19/21 18:30 Nasal Parainfluen 3 PCR NOT DETECTED 08/19/21 18:30 Nasal Parainfluen 4 PCR NOT DETECTED 08/19/21 18:30 Nasal RSV (PCR) NOT DETECTED 08/19/21 18:30 Nasal B.pertussis DNA PCR NOT DETECTED 08/19/21 18:30 Nasal C.pneumoniae (PCR) NOT DETECTED 08/19/21 18:30 Tin Human Metapneumo PCR NOT DETECTED 08/19/21 18:30 Nasal M.pneumoniae (PCR) NOT DETECTED 08/19/21 18:30 Nasal SARS-CoV-2 (PCR) NOT DETECTED 08/19/21 18:30 Stl C. diff Tox B Gene NEGATIVE (NEGATIVE) 08/19/21 19:53 Ref Lab Test Result REPORT 08/20/21 05:49 Blood Type O NEGATIVE 08/20/21 05:10 Antibody Screen POSITIVE 08/20/21 05:10 Antibody Identification See Comments 08/20/21 05:10 JANET, IgG Specific POSITIVE 08/20/21 05:10 JANET, Polyspecific Not Reportable 08/20/21 05:10 JANET, C3d Specific NEGATIVE 08/20/21 05:10 Crossmatch See Detail 08/20/21 05:10 - Procedures Procedures: Procedures TRANSFUSE NONAUT RED BLOOD CELLS IN PERIPH VEIN, PERC (11/25/20) ABX Reporting Has patient been on IV antibiotics over the past 48 hours?: Yes
[2021-08-26] MEDS: allopurinoL 100 MG TABLET PO SCH (09:11)
[2021-08-26] MEDS: CHOLECALCIFEROL 25 MCG TABLET PO SCH (09:11)
[2021-08-26] MEDS: TAMSULOSIN 0.4 MG CAPSULE PO SCH (09:12)
[2021-08-26] MEDS: ACYCLOVIR 200 MG CAPSULE PO SCH ×2 (09:12→21:31)
[2021-08-26] MEDS: SODIUM CHLORIDE FLUSH 0.9% 10 ML SYRINGE IVP SCH ×3 (09:12→16:53)
[2021-08-26] MEDS: SODIUM CHLORIDE FLUSH 0.9% 10 ML SYRINGE IVP PRN (13:29)
[2021-08-26] MEDS ORDERED: POTASSIUM CHLORIDE 20 MEQ TABLET PO ONE (17:11)
[2021-08-26] MEDS: INSULIN GLARGINE 300 UNIT/3 ML PEN SUBQ SCH (21:32)
[2021-08-27] MEDS: ACETAMINOPHEN 325 MG TABLET PO PRN (01:07)
[2021-08-27] MEDS: CIPROFLOXACIN 400 MG/200 ML 400 MG/200 ML BAG IV SCH (01:07)
[2021-08-27] MEDS: SODIUM CHLORIDE FLUSH 0.9% 10 ML SYRINGE IVP SCH ×2 (01:08→09:31)
[2021-08-27 05:10] LABS: BASOPHILS % (AUTO) 2.6 %; EOSINOPHILS % (AUTO) 3.9 %; HCT - HEMATOCRIT 22.4 % (42.0-52.0); HGB - HEMOGLOBIN 7.6 g/dL (14.0-18.0); MEAN CORPUSCULAR HEMOGLOBIN 30.8 pg (27.0-31.0); MEAN CORPUSCULAR HGB CONC 33.9 g/dL (32.0-36.0); MEAN CORPUSCULAR VOLUME 90.7 fL (80.0-94.0); MEAN PLATELET VOLUME 12.3 fL (7.4-11.4); MONOCYTES % (AUTO) 7.8 %; RED BLOOD COUNT 2.47 10^6/uL (4.70-6.10); RED CELL DISTRIBUTION WIDTH 15.7 % (12.0-15.0)
[2021-08-27 05:15] LABS: WHITE BLOOD COUNT 0.8 x10^3/uL (4.8-10.8)
[2021-08-27 05:16] LABS: PLT - PLATELET COUNT 19 10^3/uL (130-450)
[2021-08-27 05:17] LABS: ABNORMAL LYMPHS % (MANUAL) 0 %
[2021-08-27 05:18] LABS: CREATININE 0.8 mg/dL (0.6-1.2); POTASSIUM 3.6 mmol/L (3.5-5.0)
[2021-08-27 05:37] LABS: BAND NEUTROPHILS % (MANUAL) 1 %; BASOPHILS % (MANUAL) 2 %; DIFFERENTIAL COMMENT MANUAL DIFFERENTIAL; LYMPHOCYTES # (MANUAL) 0.6 10^3/uL (1.5-3.5); LYMPHOCYTES % (MANUAL) 71 %; MONOCYTES # (MANUAL) 0.1 10^3/uL (0.0-1.0); NEUTROPHILS # (MANUAL) 0.1 10^3/uL (1.5-6.6); PLATELET ESTIMATE, MANUAL DECREASED (<130,000) (NORMAL); PLATELET MORPHOLOGY NORMAL APPEARANCE (NORMAL); WBC MORPHOLOGY (MULTIPLE) NORMAL APPEARANCE (NORMAL)
[2021-08-27] MEDS: metroNIDAZOLE 500 MG/100 ML 500 MG/100 ML BAG IV SCH (06:54)
[2021-08-27] MEDS: PANTOPRAZOLE 40 MG TABLET PO SCH (06:54)
--- NOTE | 2021-08-27 07:20 | DISCHARGE SUMMARY ---
Discharge Summary Admit Date: 08/19/21 Discharge Date: 08/27/21 Discharging Provider: Antonieta Fernandes Primary Care Provider: Ben Hughes Code Status: Attempt Resuscitation Condition at Discharge: Fair Discharge Disposition: 01 Home, Self Care - HPI History of Present Illness: Per HPI This is a 71-year-old male with a past medical history significant for type 2 diabetes mellitus, MDS, pancytopenia, history of PE on Eliquis who presents today due to fever. He is currently being treated at the [facility] as well as the [facility] in [place]. He was recently started on a study drug called LX 148. This is in combination with azacitidine. He is scheduled to follow-up at the [facility] this Saturday. He states that he has had general weakness and diarrhea since beginning chemotherapy months ago. Over the past week he has had worsening of his fatigue and diarrhea. He has had fevers as high as 103 F. He has also had rigors and chills. No sore throat, nasal congestion, chest pain, dyspnea, cough. He reports no dysuria, urgency, frequency. He states he feels otherwise fine except for the fatigue and fever/chills. He states he is currently taking Eliquis due to history of DVT and pulmonary embolism. He is also on antibiotic prophylaxis but cannot recall which one. He was started on antifungal but has not begun to take this for prophylaxis as no local pharmacy had available for the next few days. We discussed goals of care and he would like to be a full code. - HOSPITAL COURSE Hospital Course: Started on cefepime after admission. Respiratory PCR panel was negative. C. difficile PCR was also negative. Blood cultures were drawn at time of admission which has been no growth to date x5 days. Patient was afebrile for 2 days so antibiotics were switched back to oral medications Bactrim. However on the third day of hospital stay he spiked a fever again with a temperature of 38.1 C. Cefepime was resumed. He underwent a CT of the abdomen pelvis which showed colitis. Possible causes were infectious versus inflammatory. As a result he was placed on Cipro and Flagyl and cefepime was discontinued. Cipro and Flagyl were maintained for 5 days. During this time patient remained afebrile. Upon discharge Bactrim was resumed once more. Cipro and Flagyl discontinued. Patient was transfused 2 units of packed red blood cells for hemoglobin of 6.8. His Eliquis was held throughout his hospital stay because his platelet count was 21 or less. The rest of his hospital stay was fairly unremarkable. He was discharged on 08/27/2021. He has not appointment with oncology in [place] on 08/28/2021. Patient was advised to maintain neutropenic precautions. It was explained what this would entail. The topic of palliative care was brought up however patient does not seem ready to have that conversation. He is very hopeful about the drug trials he is currently undergoing. His daughter was more receptive of this and plans to discuss palliative versus hospice care further weight the patient and his at home. The patient was discharged in fair condition. - ALLERGIES Allergies/Adverse Reactions: Allergies Allergy/AdvReac Type Severity Reaction Status Date / Time adhesive tape Allergy Rash Verified 08/19/21 18:22 - MEDICATIONS Home Medications: Ambulatory Orders Medication Instructions Recorded Confirmed Simvastatin 20 mg PO DAILY 06/29/13 08/20/21 Telmisartan/Hydrochlorothiazid 1 tab PO DAILY 06/29/13 08/20/21 [Micardis Hct 80-25 mg Tablet] allopurinoL [Allopurinol] 300 mg PO DAILY 06/29/13 08/20/21 Apixaban [Eliquis] 5 mg PO BID 12/29/18 08/20/21 Omeprazole 20 mg PO DAILY 05/17/20 08/20/21 Potassium Chloride 20 meq PO BID 05/17/20 08/20/21 carvediloL [Coreg] 3.125 mg PO BID 05/17/20 08/20/21 Acyclovir [Zovirax] 400 mg PO BID 06/06/20 08/20/21 Folic Acid 1 mg PO DAILY 01/24/21 08/20/21 Fexofenadine HCl 180 mg PO DAILY PRN 08/20/21 08/20/21 Sulfamethox/Trimeth 800/160 1 each PO BID 08/20/21 08/20/21 [Bactrim Ds] metFORMIN [Glucophage] 1,000 mg PO BIDWM 08/20/21 08/20/21 - PHYSICAL EXAM AT DISCHARGE General Appearance: positive: No acute distress, Alert Eyes Bilateral: positive: PERRL, EOMI ENT: positive: No signs of dehydration Neck: positive: No JVD, Trachea midline Respiratory: positive: Chest non-tender, No respiratory distress, Breath sounds nml. negative: Wheezes, Rales, Rhonchi Cardiovascular: positive: Regular rate & rhythm, No murmur Abdomen: positive: Non-tender, Nml bowel sounds, No distention. negative: Guarding, Rebound Back: positive: Nml inspection Skin: positive: Color nml, No rash, Warm, Dry Extremities: positive: Non-tender, Full ROM, No pedal edema Neurologic/Psychiatric: positive: Oriented x3, Mood/affect nml - LABS Result Diagrams: 08/27/21 04:37 08/27/21 04:37 - TIME SPENT Time Spent in Discharge (Minutes): 20
--- NOTE | 2021-08-27 07:21 | Discharge Plan ---
Discharge Plan Problem Reviewed?: Yes Disposition: Home, Self Care Condition: Fair Diet: Diabetic (Neutropenic Precautions) Activity Restrictions: Activity as Tolerated Health Concerns: You were admitted on 2-week a fever. You have MDS and your white blood cell count, hemoglobin and platelets are chronically low. On the day of admission you had a temperature as high as 103 Fahrenheit. You were also experiencing rigors and chills. You were placed on empiric antibiotics. This initially comprised of cefepime. Your white blood cell count was stable so 2 days after that oral antibiotics were resumed. This included Bactrim. However on the third day you spiked a fever again with a temperature of 38.1 C. As a result cefepime was resumed. You were experiencing diarrhea for which we did a CT of the abdomen pelvis. It indicated colitis which could be just due to inflammation versus infection. As a result you were started on Cipro and Flagyl IV on 08/23/2021. This has been continued through out the rest of your hospital stay. The frequency of your stools has decreased. There has been no improvement in your blood counts. Today 08/27/2021 you are being discharged. Your prophylactic Bactrim will be r esumed You were transfused 2 units of packed red blood cells when your hemoglobin dropped to 6.8. You are also advised to continue holding your Eliquis. This was held while you were in the hospital because you are platelet count has been 21 or less. You have an appointment with your oncology clinic in [place] on 08/28/2021. You are expected to keep the appointment and you very much plan to do so. You have been advised to maintain neutropenic precautions upon going home. You have been advised to avoid salads and things like mushrooms uncooked. Also avoid exposure to fresh cut canales. Minimize being around people and wear a mask as much as possible. Plan was discussed with you as well as your daughter. You expressed understanding and are agreeable with the plan. No Smoking: If you smoke, Please STOP! Call for help. Follow-up with: Ben Hughes DO [Primary Care Provider] -
[2021-08-27 07:40] VITALS: BP 149/62
[2021-08-27] MEDS: MULTIVITAMIN W/MINERALS TABLET PO SCH (08:02)
[2021-08-27] MEDS: INSULIN ASPART 300 UNIT/3 ML PEN SUBQ SCH (08:03)
[2021-08-27] MEDS: allopurinoL 100 MG TABLET PO SCH (08:15)
[2021-08-27] MEDS: ACYCLOVIR 200 MG CAPSULE PO SCH (08:15)
[2021-08-27] MEDS: TAMSULOSIN 0.4 MG CAPSULE PO SCH (08:15)
[2021-08-27] MEDS: CHOLECALCIFEROL 25 MCG TABLET PO SCH (08:15)
== END 2021-08-27 09:45 | disposition home or self-care (01) | DRG 809 ==
LOC: ED 18:10 → MS2 20:00
PROVIDERS: ADMIT Internal Medicine; ATTEND Internal Medicine
PROC: 30233N1 Transfusion of Nonautologous Red Blood Cells into Peripheral Vein, Percutaneous Approach (ICD-10-PCS; principal; 2021-08-20)
DX: D70.9 Neutropenia, unspecified (principal); N17.9 Acute kidney failure, unspecified; R50.81 Fever presenting with conditions classified elsewhere; Z20.822 Contact with and (suspected) exposure to COVID-19; R19.7 Diarrhea, unspecified; R53.1 Weakness; I10 Essential (primary) hypertension; D61.810 Antineoplastic chemotherapy induced pancytopenia; D46.9 Myelodysplastic syndrome, unspecified; K52.9 Noninfective gastroenteritis and colitis, unspecified; G47.30 Sleep apnea, unspecified; Z86.711 Personal history of pulmonary embolism; N40.0 Benign prostatic hyperplasia without lower urinary tract symptoms; Z79.01 Long term (current) use of anticoagulants; Z86.718 Personal history of other venous thrombosis and embolism; E11.9 Type 2 diabetes mellitus without complications; Z79.84 Long term (current) use of oral hypoglycemic drugs; Z79.899 Other long term (current) drug therapy; R33.9 Retention of urine, unspecified; R53.83 Other fatigue; E87.6 Hypokalemia; E53.8 Deficiency of other specified B group vitamins; E61.1 Iron deficiency; R60.0 Localized edema; K21.9 Gastro-esophageal reflux disease without esophagitis
CPT/HCPCS: 36415; 71045; 74018; 74177; 80048; 80053; 81001; 81599; 83036; 83605; 83735; 84100; 85025; 85027; 86850; 86870; 86880; 86900; 86901; 86922; 87040; 87493; 87631; 96360; 99284; 99285; A9270; J1815; J3370; P9040; Q5101; Q9967; 0202U; 87045; 87046; 87086

== ENCOUNTER 2021-09-07 20:51 | Emergency (ER) | payer MEDICARE, OTHER ==
[2021-09-07 22:00] LABS: BASOPHILS % (AUTO) 0.8 %; EOSINOPHILS % (AUTO) 3.9 %; HCT - HEMATOCRIT 22.7 % (42.0-52.0); HGB - HEMOGLOBIN 7.5 g/dL (14.0-18.0); LYMPHOCYTES % (AUTO) 50.4 %; MEAN CORPUSCULAR HEMOGLOBIN 30.1 pg (27.0-31.0); MEAN CORPUSCULAR VOLUME 91.2 fL (80.0-94.0); MEAN PLATELET VOLUME 12.5 fL (7.4-11.4); MONOCYTES % (AUTO) 16.3 %; NEUTROPHILS % (AUTO) 20.1 %; RED BLOOD COUNT 2.49 10^6/uL (4.70-6.10); RED CELL DISTRIBUTION WIDTH 16.6 % (12.0-15.0)
[2021-09-07 22:06] LABS: PLT - PLATELET COUNT 24 10^3/uL (130-450); WHITE BLOOD COUNT 1.3 x10^3/uL (4.8-10.8)
[2021-09-07 22:07] LABS: ABNORMAL LYMPHS % (MANUAL) 0 %
[2021-09-07 22:08] LABS: ALBUMIN 3.8 g/dL (3.2-5.5); ALBUMIN/GLOBULIN RATIO 1.4 (1.0-2.2); CALCIUM 8.6 mg/dL (8.5-10.3); CREATININE 1.2 mg/dL (0.6-1.2); POTASSIUM 3.9 mmol/L (3.5-5.0); TOTAL PROTEIN 6.6 g/dL (6.7-8.2)
[2021-09-07 22:27] LABS: BAND NEUTROPHILS % (MANUAL) 1 %; LYMPHOCYTES # (MANUAL) 0.7 10^3/uL (1.5-3.5); LYMPHOCYTES % (MANUAL) 52 %; METAMYELOCYTES % (MANUAL) 2 %; MONOCYTES # (MANUAL) 0.2 10^3/uL (0.0-1.0); MYELOCYTES % (MANUAL) 1 %; NEUTROPHILS # (MANUAL) 0.4 10^3/uL (1.5-6.6); REACTIVE LYMPHS % (MANUAL) 3 %
--- NOTE | 2021-09-07 22:27 | XRAY Report ---
PROCEDURE: Chest 2 View X-Ray INDICATIONS: fever at home, hx neutropenic fever TECHNIQUE: 2 view(s) of the chest. COMPARISON: Left chest Port-A-Cath. FINDINGS: Surgical changes and devices: None. Lungs and pleura: No pleural effusions or pneumothorax. Lungs are clear. Mediastinum: Mediastinal contours are normal. Heart size is normal. Bones and chest wall: No suspicious bony abnormalities. Soft tissues appear unremarkable. IMPRESSION: No evidence acute pulmonary process. Reviewed by: Amarjit Silverio MD on 09/07/2021 10:26 PM PST Approved by: Amarjit Silverio MD on 09/07/2021 10:26 PM PST Station ID: [id number]
[2021-09-07 22:33] LABS: DIFFERENTIAL COMMENT MANUAL DIFFERENTIAL; PLATELET ESTIMATE, MANUAL DECREASED (<130,000) (NORMAL); PLATELET MORPHOLOGY NORMAL APPEARANCE (NORMAL)
--- NOTE | 2021-09-07 22:57 | ED Physician Documentation ---
History of Present Illness - Stated complaint Stated Complaint: POST SURGERY FEVER - Chief complaint Chief Complaint: Fever - History obtained from History obtained from: Patient - Additonal information Additional information: 71yM with pmh MDS, recent hospitalization for neutropenic fever and colitis (dc 08/27/21), dm, dt/pe on eliquis, p/w fever s/p bone marrow biopsy yesterday. patient states 4 hours after his biopsy he started to feel feverish. tmax 102 oral today. 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 otherwise asymptomatic. Review of Systems Ten Systems: 10 systems reviewed and negative Constitutional: reports: Fever Eyes: denies: Discharge Ears: denies: Ear pain Nose: denies: Rhinorrhea / runny nose, Congestion Throat: denies: Sore throat Cardiac: denies: Chest pain / pressure Respiratory: denies: Dyspnea, Cough GI: reports: Diarrhea (chronic diarrhea). denies: Abdominal Pain, Nausea, Vomiting : denies: Dysuria, Frequency, Hematuria Skin: reports: Other (biopsy site clean). denies: Rash PD PAST MEDICAL HISTORY - Past Medical History Cardiovascular: Hypertension, High cholesterol, Deep vein thrombosis, Pulmonary embolism Respiratory: Sleep apnea, CPAP use Neuro: None Endocrine/Autoimmune: Type 2 diabetes GI: GERD (on chronic PPI), Diverticulitis (and enterocolitis April 2020) : Benign prostate hypertrophy HEENT: Chronic hearing loss Psych: None Musculoskeletal: Osteoarthritis Derm: Other (skin cancer May 2012) - Past Surgical History Past Surgical History: Yes Ortho: Rotator cuff repair, Shoulder arthroplasty Cardiovascular: Other - Present Medications Home Medications: Ambulatory Orders Medication Instructions Recorded Confirmed Simvastatin 20 mg PO DAILY 06/29/13 08/29/21 Telmisartan/Hydrochlorothiazid 1 tab PO DAILY 06/29/13 08/29/21 [Micardis Hct 80-25 mg Tablet] allopurinoL [Allopurinol] 300 mg PO DAILY 06/29/13 08/29/21 Apixaban [Eliquis] 5 mg PO BID 12/29/18 08/29/21 Omeprazole 20 mg PO DAILY 05/17/20 08/29/21 Potassium Chloride 20 meq PO BID 05/17/20 08/29/21 carvediloL [Coreg] 3.125 mg PO BID 05/17/20 08/29/21 Acyclovir [Zovirax] 400 mg PO BID 06/06/20 08/29/21 Folic Acid 1 mg PO DAILY 01/24/21 08/29/21 Fexofenadine HCl 180 mg PO DAILY PRN 08/20/21 08/29/21 Sulfamethox/Trimeth 800/160 1 each PO BID 08/20/21 08/29/21 [Bactrim Ds] metFORMIN [Glucophage] 1,000 mg PO BIDWM 08/20/21 08/29/21 levoFLOXacin [Levofloxacin] 750 mg PO QDAC #7 tablet 09/07/21 - Allergies Allergies/Adverse Reactions: Allergies Allergy/AdvReac Type Severity Reaction Status Date / Time adhesive tape Allergy Rash Verified 09/07/21 21:01 - Social History Does the pt smoke?: No Smoking Status: Never smoker Does the pt drink ETOH?: No Does the pt have substance abuse?: No - Immunizations Immunizations are current?: Yes - POLST Patient has POLST: No POLST Status: Full Code PD ED PE NORMAL - Vitals Vital signs reviewed: Yes - General General: Alert and oriented X 3, No acute distress, Well developed/nourished - HEENT HEENT: Atraumatic, PERRL, EOMI - Neck Neck: Supple, no meningeal sign - Cardiac Cardiac: RRR - Respiratory Respiratory: No respiratory distress, Clear bilaterally - Abdomen Abdomen: Non tender, Non distended - Back Back: No CVA TTP - Derm Derm: Normal color, Warm and dry, Other (biopsy site with dressing clean and in place. no erythema or purulence) - Extremities Extremities: No edema - Neuro Neuro: Alert and oriented X 3, No motor deficit, No sensory deficit - Psych Psych: Normal mood, Normal affect Results - Vitals Vitals: Vital Signs - 24 hr 09/07/21 09/07/21 09/07/21 20:56 21:00 23:00 Temperature 37.2 C Heart Rate 118 H 76 80 Respiratory 19 18 16 Rate Blood Pressure 125/66 128/76 130/76 O2 Saturation 96 100 97 09/08/21 00:13 Temperature 37.8 C Heart Rate 85 Respiratory 20 Rate Blood Pressure 147/70 H O2 Saturation 98 Oxygen O2 Source Room air - Labs Labs: Laboratory Tests 09/07/21 09/07/21 09/07/21 21:48 21:48 21:48 WBC 1.3 L* RBC 2.49 L Hgb 7.5 L Hct 22.7 L MCV 91.2 MCH 30.1 MCHC 33.0 RDW 16.6 H Plt Count 24 L* MPV 12.5 H Neut # (Auto) Not Reportable Lymph # (Auto) Not Reportable [place] # (Auto) Not Reportable Eos # (Auto) Not Reportable Baso # (Auto) Not Reportable Absolute Nucleated RBC Not Reportable Total Counted 100 Band Neuts % (Manual) 1 Reactive Lymphs % (Man) 3 Abnorm Lymph % (Manual) 0 Metamyelocytes % 2 H Myelocytes % 1 H Nucleated RBC % Not Reportable Neutrophils # (Manual) 0.4 L* Lymphocytes # (Manual) 0.7 L Monocytes # (Manual) 0.2 Eosinophils # (Manual) 0.0 Basophils # (Manual) 0.0 Differential Comment MANUAL DIFFERENTIAL Platelet Estimate DECREASED (<130,000) Platelet Morphology NORMAL APPEARANCE RBC Morph Micro Appear 1+ BASO STIPPLING Sodium 131 L Potassium 3.9 Chloride 99 L Carbon Dioxide 24 Anion Gap 8.0 BUN 25 H Creatinine 1.2 Estimated GFR (MDRD) 60 L Glucose 170 H Lactic Acid 1.7 Calcium 8.6 Total Bilirubin 1.0 AST 17 ALT 11 Alkaline Phosphatase 45 Total Protein 6.6 L Albumin 3.8 Globulin 2.8 Albumin/Globulin Ratio 1.4 PD MEDICAL DECISION MAKING - ED course ED course: d/w Dr. Ferraro, heme/onc fellow traffic monitor specialist who states she can't give recommendations over the phone and recommends calling back the transfer center to find the traffic monitor specialist attending for Dr. Leblanc. Will attempt to call Dr. Ross instead, since he is associated with our hospital. d/w Dr. Reza Phillips, traffic monitor specialist heme onc for Dr. Ross - [place] risk index is 24 points (low risk for poor outcome). Dr. Phillips recommends single dose IV antibiotics here, then oral levoquin, outpatient follow up (call [facility] clinic tomorrow). d/w patient who is agreeable. strict return precautions given. Departure - Departure Disposition: 01 Home, Self Care Clinical Impression: Neutropenia, History of fever, MDS (myelodysplastic syndrome) Condition: Stable Instructions: Neutropenia Follow-Up: Jani Ross MD [Physician No Access] - Prescriptions: levoFLOXacin [Levofloxacin] 750 mg PO QDAC #7 tablet Comments: You were seen in the emergency department for evaluation of neutropenia and recent fever. You did not have a fever here in the emergency department. I spoke with Dr. Reza Phillips, a colleague of Dr. Ross. He recommended a dose of IV antibiotics, 7 days of antibiotic pills, and for you to follow-up with [facility] clinic tomorrow. Return to the emergency department immediately if you have any new or worsening symptoms or other concerns.
[2021-09-07] MEDS ORDERED: CEFEPIME 2 GM in SODIUM CHLORIDE 0.9% MINIBAG 100 ML IV STA (23:05)
[2021-09-07] MEDS ORDERED: SODIUM CHLORIDE 0.9% 500 ML IV STA (23:13)
[2021-09-08 01:20] VITALS: BP 128/71
== END 2021-09-08 01:10 | disposition home or self-care (01) ==
LOC: ED 20:51
DX: D46.9 Myelodysplastic syndrome, unspecified (principal); D70.9 Neutropenia, unspecified; R50.81 Fever presenting with conditions classified elsewhere; E11.9 Type 2 diabetes mellitus without complications; Z79.84 Long term (current) use of oral hypoglycemic drugs
CPT/HCPCS: 36415; 80053; 83605; 85025; 87040; 96365; 99284

== ENCOUNTER 2022-03-12 08:00 | Outpatient (CLI) | payer MEDICARE, OTHER ==
[2022-03-12 12:54] LABS: ESTIMATED AVERAGE GLUCOSE 148 mg/dL (70-100); HEMOGLOBIN A1c% 6.8 % (4.27-6.07)
== END 2022-03-12 23:59 | disposition home or self-care (01) ==
LOC: LAB 08:00
PROVIDERS: ATTEND Family Medicine
DX: E11.9 Type 2 diabetes mellitus without complications (principal)
CPT/HCPCS: 36415; 83036

== ENCOUNTER 2022-04-23 15:43 | Emergency (ER) | payer MEDICARE, OTHER ==
[2022-04-23 15:53] VITALS: BP 110/44
--- NOTE | 2022-04-23 16:15 | XRAY Report ---
PROCEDURE: Foot 3 View LT INDICATIONS: Trauma TECHNIQUE: 3 views of the foot were acquired. COMPARISON: None FINDINGS: Bones: No fractures or dislocations. Moderate osteoarthritic changes throughout left foot are seen. No suspicious bony lesions. Well-defined plantar and dorsal calcaneal enthesophytes are seen. Soft tissues: No tibiotalar joint effusion. Achilles tendon appears normal. IMPRESSION: Moderate leftward joint osteoarthritis. No gross acute left foot fracture or dislocation. Well-define d calcaneal enthesophytes. Reviewed by: Gunner Gilman MD on 04/23/2022 4:14 PM PDT Approved by: Gunner Gilman MD on 04/23/2022 4:14 PM PDT Station ID: [id number]
--- NOTE | 2022-04-23 16:54 | ED Physician Documentation ---
PD HPI LOWER EXT INJURY - Stated complaint Stated Complaint: L FOOT INJ - Chief complaint Chief Complaint: Trauma Ext - History obtained from History obtained from: Patient - Additional information Additional information: The patient comes to the emergency department chief complaint of left foot pain after stepping on his dog's bone yesterday morning. He states he rolled his foot a little bit but mostly, just hurt the bottom of his foot. He states he been able to walk but because of the pain, he wanted to get it checked out. No other complaints at this time. Review of Systems Ten Systems: 10 systems reviewed and negative Constitutional: reports: Reviewed and negative Eyes: reports: Reviewed and negative Ears: reports: Reviewed and negative Nose: reports: Reviewed and negative Throat: reports: Reviewed and negative Cardiac: reports: Reviewed and negative Respiratory: reports: Reviewed and negative GI: reports: Reviewed and negative : reports: Reviewed and negative Skin: reports: Reviewed and negative Musculoskeletal: reports: Extremity pain, Pain with weight bearing (Mild) Neurologic: reports: Reviewed and negative Psychiatric: reports: Reviewed and negative Endocrine: reports: Reviewed and negative Immunocompromised: reports: Reviewed and negative PD PAST MEDICAL HISTORY - Past Medical History Cardiovascular: Hypertension, High cholesterol, Deep vein thrombosis, Pulmonary embolism Respiratory: Sleep apnea, CPAP use Neuro: None Endocrine/Autoimmune: Type 2 diabetes GI: GERD, Diverticulitis : Benign prostate hypertrophy HEENT: Chronic hearing loss Psych: None Musculoskeletal: Osteoarthritis Derm: Other - Past Surgical History Past Surgical History: Yes Ortho: Rotator cuff repair, Shoulder arthroplasty Cardiovascular: Other - Present Medications Home Medications: Ambulatory Orders Medication Instructions Recorded Confirmed Simvastatin 20 mg PO DAILY 06/29/13 04/03/22 Telmisartan/Hydrochlorothiazid 1 tab PO DAILY 06/29/13 04/03/22 [Micardis Hct 80-25 mg Tablet] allopurinoL [Allopurinol] 300 mg PO DAILY 06/29/13 04/03/22 Apixaban [Eliquis] 5 mg PO BID 12/29/18 04/03/22 Omeprazole 20 mg PO DAILY 05/17/20 04/03/22 Potassium Chloride 20 meq PO BID 05/17/20 04/03/22 carvediloL [Coreg] 3.125 mg PO BID 05/17/20 04/03/22 Acyclovir [Zovirax] 400 mg PO BID 06/06/20 04/03/22 Folic Acid 1 mg PO DAILY 01/24/21 04/03/22 Fexofenadine HCl 180 mg PO DAILY PRN 08/20/21 04/03/22 Sulfamethox/Trimeth 800/160 1 each PO BID 08/20/21 04/03/22 [Bactrim Ds] metFORMIN [Glucophage] 1,000 mg PO BIDWM 08/20/21 04/03/22 levoFLOXacin [Levofloxacin] 750 mg PO QDAC #7 tablet 09/07/21 04/03/22 Escitalopram [Lexapro] 10 mg PO DAILY 12/16/21 04/03/22 Glipizide [Glipizide ER] 5 mg PO DAILY 12/16/21 04/03/22 Magnesium Oxide [Mag Ox] 400 mg PO BID 12/16/21 04/03/22 Ondansetron Odt [Zofran Odt] 4 mg TL Q4HR PRN 12/16/21 04/03/22 Prochlorperazine Maleate 10 mg PO DAILY 12/16/21 04/03/22 [Compazine] - Allergies Allergies/Adverse Reactions: Allergies Allergy/AdvReac Type Severity Reaction Status Date / Time adhesive tape Allergy Rash Verified 04/23/22 15:53 - Social History Does the pt smoke?: No Smoking Status: Never smoker Does the pt drink ETOH?: No Does the pt have substance abuse?: No - Immunizations Immunizations are current?: Yes - POLST Patient has POLST: No POLST Status: Full Code PD ED PE NORMAL - Vitals Vital signs reviewed: Yes - General General: Alert and oriented X 3, No acute distress, Well developed/nourished - HEENT HEENT: Atraumatic, PERRL, EOMI, Moist mucous membranes - Neck Neck: Supple, no meningeal sign - Cardiac Cardiac: Strong equal pulses - Respiratory Respiratory: No respiratory distress - Derm Derm: Warm and dry, Other (Mild contusion left medial plantar foot.) - Extremities Extremities: No deformity, No edema, Other (Tenderness palpation over medial arch left foot without deformity.) - Neuro Neuro: Alert and oriented X 3, designer architect 2-12 intact, No motor deficit, No sensory deficit - Psych Psych: Normal mood, Normal affect Results - Vitals Vitals: Vital Signs - 24 hr 04/23/22 15:51 Temperature 36.4 C L Heart Rate 71 Respiratory 14 Rate Blood Pressure 110/44 L O2 Saturation 100 Oxygen O2 Source Room air - Rads (name of study) Left foot x-ray series Radiology: Final report received, EMP read indepedently, See rad report (Negative) PD MEDICAL DECISION MAKING - ED course Complexity details: reviewed results, re-evaluated patient, considered differential, d/w patient ED course: I discussed with the patient that his x-ray series is negative and he is most likely sprained and contused his foot mildly. Patient was fine with weightbearing and did not wish any crutches. I did not feel that wrapping his foot with likely to be helpful and in fact would make him more likely to trip and fall. Patient has supportive shoes which he will wear. We have discussed symptomatic management at home and the usual indications for follow-up and return. Departure - Departure Disposition: 01 Home, Self Care Clinical Impression: Contusion of foot, left Qualifiers: Encounter type: initial encounter Qualified Code(s): S90.32XA - Contusion of left foot, initial encounter Condition: Stable Instructions: ED Contusion Foot Comments: Your x-rays look good. There is no evidence of broken bones. You have most likely bruised and potentially sprained your foot. This should get better on its own given time. You may apply ice packs and take ibuprofen as needed. You may walk/bear weight as much as you can tolerate. Please follow-up with your primary doctor as needed
== END 2022-04-23 17:14 | disposition home or self-care (01) ==
LOC: ED 15:43
DX: S90.32XA Contusion of left foot, initial encounter (principal); W22.8XXA Striking against or struck by other objects, initial encounter; I10 Essential (primary) hypertension; E11.9 Type 2 diabetes mellitus without complications
CPT/HCPCS: 99282; 99283

== ENCOUNTER 2022-05-21 16:15 | Emergency (ER) | payer MEDICARE, OTHER ==
[2022-05-21] MEDS ORDERED: LORazepam 2 MG/ML VIAL IVP STA (16:17)
[2022-05-21] MEDS ORDERED: diphenhydrAMINE INJ 50 MG/ML VIAL IVP STA (16:17)
--- NOTE | 2022-05-21 16:21 | ED Physician Documentation ---
History of Present Illness - Stated complaint Stated Complaint: TRANSFUSION REACTION - Additonal information Additional information: Patient 71-year-old male with past medical significant for myelodysplastic syndrome, platelet and RBC dependent [place] [facility] [place] concern for transfusion reaction. Per [facility] [place] who contacted the emergency department by phone. Patient began to develop urticaria with diffuse itching and some blood pressures with systolics in the 90s. This was at the beginning of his second scheduled unit of platelets. All total he received 1 unit PRBCs and 1 unit platelets prior to the onset of his reaction. He was pretreated with Benadryl and acetaminophen prior to the onset of his reaction as he has had a mild transfusion reactions in the past. He was given a total of 1300 mg acetaminophen and 75 mg Benadryl as well as 10 of Decadron prior to arrival. Currently he reports feeling itchy but denies any lightheadedness, heart palpitations, chest pain, wheezing or shortness of breath. Review of Systems Ten Systems: 10 systems reviewed and negative Constitutional: denies: Fever Eyes: denies: Loss of vision Ears: denies: Loss of hearing Nose: denies: Rhinorrhea / runny nose Throat: denies: Dental pain / toothache Cardiac: denies: Chest pain / pressure Respiratory: denies: Dyspnea GI: denies: Abdominal Pain : denies: Dysuria Skin: reports: Rash PD PAST MEDICAL HISTORY - Past Medical History Cardiovascular: Hypertension, High cholesterol, Deep vein thrombosis, Pulmonary embolism Respiratory: Sleep apnea, CPAP use Neuro: None Endocrine/Autoimmune: Type 2 diabetes GI: GERD, Diverticulitis : Benign prostate hypertrophy HEENT: Chronic hearing loss Psych: None Musculoskeletal: Osteoarthritis Derm: Other - Past Surgical History Past Surgical History: Yes Ortho: Rotator cuff repair, Shoulder arthroplasty Cardiovascular: Other - Present Medications Home Medications: Ambulatory Orders Medication Instructions Recorded Confirmed Simvastatin 20 mg PO DAILY 06/29/13 05/21/22 Telmisartan/Hydrochlorothiazid 1 tab PO DAILY 06/29/13 05/21/22 [Micardis Hct 80-25 mg Tablet] allopurinoL [Allopurinol] 300 mg PO DAILY 06/29/13 05/21/22 Apixaban [Eliquis] 5 mg PO BID 12/29/18 05/21/22 Omeprazole 20 mg PO DAILY 05/17/20 05/21/22 Potassium Chloride 20 meq PO BID 05/17/20 05/21/22 carvediloL [Coreg] 3.125 mg PO BID 05/17/20 05/21/22 Acyclovir [Zovirax] 400 mg PO BID 06/06/20 05/21/22 Folic Acid 1 mg PO DAILY 01/24/21 05/21/22 Fexofenadine HCl 180 mg PO DAILY PRN 08/20/21 05/21/22 Sulfamethox/Trimeth 800/160 1 each PO BID 08/20/21 05/21/22 [Bactrim Ds] metFORMIN [Glucophage] 1,000 mg PO BIDWM 08/20/21 05/21/22 levoFLOXacin [Levofloxacin] 750 mg PO QDAC #7 tablet 09/07/21 05/21/22 Escitalopram [Lexapro] 10 mg PO DAILY 12/16/21 05/21/22 Glipizide [Glipizide ER] 5 mg PO DAILY 12/16/21 05/21/22 Magnesium Oxide [Mag Ox] 400 mg PO BID 12/16/21 05/21/22 Ondansetron Odt [Zofran Odt] 4 mg TL Q4HR PRN 12/16/21 05/21/22 Prochlorperazine Maleate 10 mg PO DAILY 12/16/21 05/21/22 [Compazine] - Allergies Allergies/Adverse Reactions: Allergies Allergy/AdvReac Type Severity Reaction Status Date / Time adhesive tape Allergy Rash Verified 05/21/22 16:25 - Social History Does the pt smoke?: No Smoking Status: Never smoker Does the pt drink ETOH?: No Does the pt have substance abuse?: No - Immunizations Immunizations are current?: Yes - POLST Patient has POLST: No POLST Status: Full Code PD ED PE NORMAL - Vitals Vital signs reviewed: Yes - General General: Alert and oriented X 3, Other - HEENT HEENT: Atraumatic (Patient has low level tachycardia, initial systolic blood pressure 150.) - Neck Neck: Supple, no meningeal sign - Cardiac Cardiac: RRR, No gallop - Respiratory Respiratory: No respiratory distress, Clear bilaterally - Abdomen Abdomen: Normal bowel sounds, Non tender, No organomegaly - Male Male : Deferred - Rectal Rectal: Deferred - Back Back: No CVA TTP, No spinal TTP - Derm Derm: Normal color - Extremities Extremities: No deformity - Neuro Neuro: Alert and oriented X 3, campaign manager 2-12 intact, No motor deficit, No sensory deficit, Normal speech Results - Vitals Vitals: Vital Signs - 24 hr 05/21/22 05/21/22 16:18 17:12 Temperature 37.3 C Heart Rate 106 H 74 Respiratory 25 H 25 H Rate Blood Pressure 106/65 106/65 O2 Saturation 100 98 Oxygen O2 Source Room air PD MEDICAL DECISION MAKING - ED course Complexity details: reviewed results, d/w patient ED course: 71-year-old male presented to the emergency department with diffuse urticaria after an allergic reaction that began while receiving a platelet transfusion at the local oncology clinic. Afebrile, hemodynamically stable however blood pressures were somewhat on the low side on arrival. No respiratory distress or indications of anaphylaxis. Given Ativan and a dose of Benadryl. Had received Benadryl and Decadron prior to arrival. Monitored in the emergency department for approximately 2 hours with near complete resolution of symptoms. Will discharge at this time for follow-up with primary care/oncology as needed. Clear return precautions given. Departure - Departure Disposition: 01 Home, Self Care Clinical Impression: Transfusion reaction Instructions: ED Allergic Reaction General Other Comments: Please follow-up with both your primary care doctor as well as with your oncologist as soon as possible. If it anytime you have new or worsening symptoms please return.
[2022-05-21 16:25] VITALS: BP 106/65
== END 2022-05-21 18:03 | disposition home or self-care (01) ==
LOC: ED 16:15
DX: T80.92XA Unspecified transfusion reaction, initial encounter (principal); I10 Essential (primary) hypertension; E11.9 Type 2 diabetes mellitus without complications; Z79.84 Long term (current) use of oral hypoglycemic drugs
CPT/HCPCS: 96374; 99282; 99283; J1200; J2060

== ENCOUNTER 2022-06-03 12:54 | Observation (INO) | payer MEDICARE, OTHER ==
[2022-06-03] MEDS ORDERED: methylPREDNISolone SUCCINATE 125 MG/2 ML VIAL IVP STA ×2 (13:57→19:00)
[2022-06-03] MEDS ORDERED: diphenhydrAMINE INJ 50 MG/ML VIAL IVP STA ×2 (13:57→18:59)
[2022-06-03] MEDS ORDERED: ACETAMINOPHEN 325 MG TABLET PO STA (13:57)
--- NOTE | 2022-06-03 14:12 | ED Physician Documentation ---
History of Present Illness - Stated complaint Stated Complaint: GEN WEAKNESS,HEAVING BREATHING - Chief complaint Chief Complaint: General - History obtained from History obtained from: Patient - History of Present Illness Timing: Chronic Pain level max: 0 Pain level now: 0 - Additonal information Additional information: 71-year-old male with a history of myelodysplastic syndrome presents requesting a blood transfusion. He states that on Saturday, June 01, he was at the [facility] and received a platelet transfusion, but they ran out of time to do his red blood cell transfusion. He states that he was told to come to the ER this weekend if he felt weakness and have the blood transfusion performed. He states he has been feeling weak for several weeks. Worse with walking, better with rest. He states that he was told that there is blood in the lab ready for him from Saturday. No shortness of breath. No chest pain. No fevers. No cough. No congestion. Review of Systems Constitutional: denies: Fever, Chills Cardiac: denies: Chest pain / pressure, Palpitations Respiratory: denies: Dyspnea, Cough GI: denies: Vomiting, Diarrhea Skin: denies: Rash Musculoskeletal: denies: Neck pain, Back pain Neurologic: denies: Headache PD PAST MEDICAL HISTORY - Past Medical History Past Medical History: Yes Cardiovascular: Hypertension, High cholesterol, Deep vein thrombosis, Pulmonary embolism Respiratory: Sleep apnea, CPAP use Neuro: None Endocrine/Autoimmune: Type 2 diabetes GI: GERD, Diverticulitis : Benign prostate hypertrophy HEENT: Chronic hearing loss Psych: None Musculoskeletal: Osteoarthritis, Gout Derm: Other Other Past Medical History: MDS - Past Surgical History Past Surgical History: Yes Ortho: Rotator cuff repair, Shoulder arthroplasty Cardiovascular: Other - Present Medications Home Medications: Ambulatory Orders Medication Instructions Recorded Confirmed Telmisartan/Hydrochlorothiazid 1 tab PO DAILY 06/29/13 06/03/22 [Micardis Hct 80-25 mg Tablet] allopurinoL [Allopurinol] 300 mg PO DAILY 06/29/13 06/03/22 Omeprazole 20 mg PO DAILY 05/17/20 06/03/22 Acyclovir [Zovirax] 400 mg PO BID 06/06/20 06/03/22 Folic Acid 1 mg PO DAILY 01/24/21 06/03/22 metFORMIN [Glucophage] 1,000 mg PO BIDWM 08/20/21 06/03/22 Escitalopram [Lexapro] 10 mg PO DAILY 12/16/21 06/03/22 Magnesium Oxide [Mag Ox] 400 mg PO DAILY 12/16/21 06/03/22 Prochlorperazine Maleate 10 mg PO DAILY 12/16/21 06/03/22 [Compazine] Ondansetron Odt [Zofran Odt] 4 mg TL Q4HR PRN 06/03/22 06/03/22 - Allergies Allergies/Adverse Reactions: Allergies Allergy/AdvReac Type Severity Reaction Status Date / Time adhesive tape Allergy Rash Verified 05/29/22 10:05 - Social History Does the pt smoke?: No Smoking Status: Former smoker Does the pt drink ETOH?: No Does the pt have substance abuse?: No - Immunizations Immunizations are current?: Yes - POLST Patient has POLST: No POLST Status: Full Code PD ED PE NORMAL - Vitals Vital signs reviewed: Yes - General General: Alert and oriented X 3, No acute distress - HEENT HEENT: Moist mucous membranes - Neck Neck: Supple, no meningeal sign - Cardiac Cardiac: RRR, Strong equal pulses - Respiratory Respiratory: No respiratory distress, Clear bilaterally - Abdomen Abdomen: Soft, Non tender, Non distended - Derm Derm: Warm and dry - Neuro Neuro: Alert and oriented X 3 - Psych Psych: Normal mood, Normal affect Results - Vitals Vitals: Vital Signs - 24 hr 06/03/22 06/03/22 13:20 13:42 Temperature 37.6 C Heart Rate 108 H 99 Respiratory 32 H 25 H Rate Blood Pressure 114/68 103/61 O2 Saturation 100 100 Oxygen O2 Source Room air - Labs Labs: Laboratory Tests 06/03/22 06/03/22 06/03/22 14:10 14:10 14:10 WBC 0.7 L* RBC 1.58 L Hgb 4.6 L* Hct 13.8 L* MCV 87.3 MCH 29.1 MCHC 33.3 RDW 13.6 Plt Count 2 L* Neut # (Auto) BLUE CRABBER Lymph # (Auto) BLUE [place]AB[place] # (Auto) BLUE CRABBER Eos # (Auto) BLUE [place]ABBER Baso # (Auto) BLUE [place]BER Absolute Nucleated RBC BLUE [place] Total Counted 10 Band Neuts % (Manual) 0 Abnorm Lymph % (Manual) 0 Blast Cells % 10 H* Nucleated RBC % BLUE [place] Neutrophils # (Manual) 0.2 L* Lymphocytes # (Manual) 0.4 L Monocytes # (Manual) 0.1 Eosinophils # (Manual) 0.0 Basophils # (Manual) 0.0 Platelet Estimate DECREASED (<130,000) Platelet Morphology NORMAL APPEARANCE RBC Morph Micro Appear NORMAL APPEARANCE Sodium 135 Potassium 4.7 Chloride 102 Carbon Dioxide 27 Anion Gap 6.0 BUN 37 H Creatinine 0.9 Estimated GFR (MDRD) 83 L Glucose 224 H Calcium 8.4 L Blood Type O NEGATIVE Antibody Screen POSITIVE Antibody Identification Inconclusive JANET, IgG Specific POSITIVE JANET, Polyspecific POSITIVE JANET, C3d Specific NEGATIVE Crossmatch See Detail PD MEDICAL DECISION MAKING - ED course Complexity details: reviewed old records, reviewed results, re-evaluated patient, considered differential, d/w patient, d/w access consultant ED course: Laboratory testing today shows a drop in his hemoglobin down to 4. His platelets are down to 2. He will need several units of blood and likely platelets as well. Discussed the case with the hospitalist, Dr. Avalos, who accepts. Patient is dyspneic in the emergency department and unable to walk more than a few steps without shortness of breath. This document was made in part using voice recognition software. While efforts are made to proofread this document, sound alike and grammatical errors may occur. Departure - Departure Disposition: ED Place in Observation Clinical Impression: Thrombocytopenia, Myelodysplastic syndrome, Pancytopenia Anemia Qualifiers: Anemia type: unspecified type Qualified Code(s): D64.9 - Anemia, unspecified Leukopenia Qualifiers: Leukopenia type: unspecified Qualified Code(s): D72.819 - Decreased white blood cell count, unspecified Condition: Stable Discharge Date/Time: 06/03/22 16:16
[2022-06-03 14:38] LABS: EOSINOPHILS % (AUTO) 1.4 %; LYMPHOCYTES % (AUTO) 47.8 %; MEAN CORPUSCULAR HEMOGLOBIN 29.1 pg (27.0-31.0); MEAN CORPUSCULAR HGB CONC 33.3 g/dL (32.0-36.0); MEAN CORPUSCULAR VOLUME 87.3 fL (80.0-94.0); MONOCYTES % (AUTO) 11.6 %; NEUTROPHILS % (AUTO) 37.8 %; RED BLOOD COUNT 1.58 10^6/uL (4.70-6.10); RED CELL DISTRIBUTION WIDTH 13.6 % (12.0-15.0)
[2022-06-03 14:44] LABS: CALCIUM 8.4 mg/dL (8.5-10.3); CREATININE 0.9 mg/dL (0.6-1.2); POTASSIUM 4.7 mmol/L (3.5-5.0)
[2022-06-03 14:52] LABS: HCT - HEMATOCRIT 13.8 % (42.0-52.0); HGB - HEMOGLOBIN 4.6 g/dL (14.0-18.0); PLT - PLATELET COUNT 2 10^3/uL (130-450); WHITE BLOOD COUNT 0.7 x10^3/uL (4.8-10.8)
[2022-06-03 14:53] LABS: ABNORMAL LYMPHS % (MANUAL) 0 %; BAND NEUTROPHILS % (MANUAL) 0 %
[2022-06-03] MEDS ORDERED: ONDANSETRON ODT 4 MG TABLET TL PRN (15:06)
[2022-06-03] MEDS ORDERED: ONDANSETRON 4 MG/2 ML VIAL IVP PRN (15:06)
[2022-06-03] MEDS ORDERED: oxyCODONE 5 MG TABLET PO PRN (15:06)
[2022-06-03 15:25] LABS: LYMPHOCYTES # (MANUAL) 0.4 10^3/uL (1.5-3.5); LYMPHOCYTES % (MANUAL) 50 %; MONOCYTES # (MANUAL) 0.1 10^3/uL (0.0-1.0); NEUTROPHILS # (MANUAL) 0.2 10^3/uL (1.5-6.6)
[2022-06-03 15:26] LABS: BLAST CELLS % (MANUAL) 10 %
[2022-06-03 15:27] LABS: PLATELET ESTIMATE, MANUAL DECREASED (<130,000) (NORMAL); PLATELET MORPHOLOGY NORMAL APPEARANCE (NORMAL); RBC MORPHOLOGY (MULTIPLE) NORMAL APPEARANCE (NORMAL)
--- NOTE | 2022-06-03 15:32 | HISTORY & PHYSICAL EXAMINATION ---
Chief Complaint - Chief Complaint Chief Complaint: dyspnea, generalized weakness History of Present Illness - Admitted From Admitted From:: Emergency Department - History Obtained From Records Reviewed: Yes History obtained from: Patient - History of Present Illness HPI Comment/Other: Nito presented to the ED today with generalized weakness and dyspnea. He has a history significant for myelodysplasic syndrome. He is involved in a clinical trial with the [facility], he is transfusion dependent and is on a treatment of 2 units every week. He had his last transfusion on June 01 with [facility] and received a platelet transfusion but ran out of time to do his RBC transfusion. He was told to come back the following saturday (06/04) to finish but if he got worse over the weekend he should come in to the ED and have the blood transfusion performed. He came in with increased fatigue, a tingling sensation in his extremities and an overall feeling generalized weakness. Today he will be put on observation and given RBC transfusion per the protocol from the [facility] notes. Today he is able to sit up and have a conversation, and walk to the bathroom and back to his bed unassisted. He feels a tingly sensation in his extremities but denies chest pain, palpitations, abdominal pain, new swelling, blood in his stool or urine. He gets short of breath with mild exertion which is normal for him. He lives with his at home and he is able to walk around the house and the yard and do basic ADLs. He was screened for viral illness and is covid positive and asymptomatic. He denies headache, congestion, sore throat, lost of taste or smell, fever. History - Past Medical History Cardiovascular: reports: Hypertension, High cholesterol, Deep vein thrombosis, Pulmonary embolism Respiratory: reports: Sleep apnea, CPAP use Neuro: reports: None Endocrine/Autoimmune: reports: Type 2 diabetes GI: reports: GERD, Diverticulitis : reports: Benign prostate hypertrophy HEENT: reports: Chronic hearing loss Psych: reports: None Musculoskeletal: reports: Osteoarthritis, Gout Derm: reports: Other MRSA Hx?: No Other Past Medical History: MDS - Past Surgical History Ortho: reports: Rotator cuff repair, Shoulder arthroplasty Cardiovascular: reports: Other - Family & Social History Family History Comment/Other: Dad of complications of black lung. He was a smoker, drinker, had diabetes, high blood pressure, and heart disease. Mom has survived breast cancer and has diabetes. Living Situation: With spouse/s.o. 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 Retired in 2017. He smoked briefly in his early 20s. Denies any al cohol or illicit drug use. - Substance History Use: Uses substance without health or social issues: NONE - POLST Patient has POLST: Yes POLST Status: DNR Meds/Allgy - Home Medications Home Medications: Ambulatory Orders Medication Instructions Recorded Confirmed Telmisartan/Hydrochlorothiazid 1 tab PO DAILY 06/29/13 06/03/22 [Micardis Hct 80-25 mg Tablet] allopurinoL [Allopurinol] 300 mg PO DAILY 06/29/13 06/03/22 Omeprazole 20 mg PO DAILY 05/17/20 06/03/22 Acyclovir [Zovirax] 400 mg PO BID 06/06/20 06/03/22 Folic Acid 1 mg PO DAILY 01/24/21 06/03/22 metFORMIN [Glucophage] 1,000 mg PO BIDWM 08/20/21 06/03/22 Escitalopram [Lexapro] 10 mg PO DAILY 12/16/21 06/03/22 Magnesium Oxide [Mag Ox] 400 mg PO DAILY 12/16/21 06/03/22 Prochlorperazine Maleate 10 mg PO DAILY 12/16/21 06/03/22 [Compazine] Ondansetron Odt [Zofran Odt] 4 mg TL Q4HR PRN 06/03/22 06/03/22 - Allergies Allergies/Adverse Reactions: Allergies Allergy/AdvReac Type Severity Reaction Status Date / Time adhesive tape Allergy Rash Verified 05/29/22 10:05 Review of Systems - Constitutional Constitutional: reports: Fatigue, Weakness. denies: Fever, Chills - Eyes Eyes: denies: Pain, Blurred vision, Vision loss - Ears, Nose & Throat Ears, Nose & Throat: denies: Tinnitus, Vertigo, Nasal congestion, Sore throat, Hoarseness, Bleeding gums - Cardiovascular Cariovascular: denies: Palpitations, Chest pain, Edema - Respiratory Respiratory: denies: Cough, Wheezing - Gastrointestinal Gastrointestinal: denies: Abdominal pain, Diarrhea, Vomiting - Musculoskeletal Musculoskeletal: reports: Muscle weakness - Integumentary Integumentary: denies: Rash - Neurological Neurological: denies: Headache, Dizziness - Hematologic/Lymphatic Hematologic/Lymphatic: reports: Anemia - All Other Systems All Other Systems: reports: Reviewed and negative Prior Level of Functionality: Nito is infusion dependent and been needing more transfusions lately. He is physically still able to move around in the house and yard, he occasionally does some house and yard work and has adequate ADLs. Exam - Vital Signs Vital Signs: Vital Signs x48h Temp Pulse Resp BP Pulse Ox 06/03/22 13:42 99 25 H 103/61 100 06/03/22 13:20 37.6 C 108 H 32 H 114/68 100 - Physical Exam General Appearance: positive: No acute distress, Alert. negative: Anxious Eyes Bilateral: positive: PERRL, EOMI, Other (He has a large medial scleral bleed. His iris is without blood.) ENT: positive: No signs of dehydration. negative: Purulent nasal drainage Neck: positive: No JVD. negative: Stiff neck Respiratory: positive: No respiratory distress, Breath sounds nml Cardiovascular: positive: Regular rate & rhythm, No murmur, No gallop Abdomen: positive: Non-tender, No organomegaly, Nml bowel sounds, No distention. negative: Guarding, Rebound Skin: positive: No rash, Warm, Dry, Pallor Extremities: positive: Non-tender, Full ROM, Nml appearance, No pedal edema Neurologic/Psychiatric: positive: Oriented x3, CN's nml (2-12), Motor nml, Mood/affect nml Sepsis Event Note (H) - Evaluation Current Stage of Sepsis: Ruled out Conclusion/Plan - Problem List (1) Fatigue associated with anemia Conclusion/Plan: Nito came in today from extreme fatigue and weakness due to his anemic state. He will be given his RBC and platelet transfusion per the protocol in the [facility] note. Per the note if he is <6.6 units irradiated. Platelet 1u if count <10k, 2 u if less than 5. Plan: Start slow infusion of Plt and pRBC Start benadryl 50mg IV prior to plt tx and tylenol 650mg PO 30 min prior to infusion start Start Solumedrol 125mg IV (2) Pancytopenia Conclusion/Plan: Pancytopenia due to his MDS. See above for platelet and pRBC protocol. (3) Myelodysplasia (myelodysplastic syndrome) Conclusion/Plan: Hx of MDS, enrolled in [facility] clinical trial and managed by [facility]. He is transfusion dependent and been needing more frequent transfusions lately. End of life discussion and hospice was discussed with him on 05/29, so far he is unwilling to accept this and would like to live as long as possible regardless of the fact that it is getting more difficult to get blood products ready to meet his transfusion needs. (4) COVID-19 Conclusion/Plan: His covid-19 test came back positive however he is asymptomatic. He denies any congestion, headache, sore throat, fever, chills, or chest pain. Plan: Start droplet and airborne protocol - Lab Results Fish Bones: 06/03/22 14:10 06/03/22 14:10 Core Measures - DVT/VTE - Prophylaxis VTE/DVT Prophylaxis med ordered at admit?: No Not Ordered - Medical Reason: Not indicated (DVT prophylaxis is held when his p latelets are <30k)
[2022-06-03] MEDS ORDERED: ACETAMINOPHEN 325 MG TABLET PO PRN (18:59)
[2022-06-03] MEDS ORDERED: FAMOTIDINE 20 MG/2 ML VIAL IVP STA (19:00)
[2022-06-03] MEDS ORDERED: LOPERAMIDE 2 MG CAPSULE PO PRN (19:25)
[2022-06-03] MEDS: SODIUM CHLORIDE FLUSH 0.9% 10 ML SYRINGE IVP SCH (22:15)
--- NOTE | 2022-06-03 23:25 | MISCELLANEOUS PROVIDER NOTE ---
Miscellaneous Provider Note - - Note: Consult Information Member Facility: [facility] Facility Requesting Clinician: Augusta Garnett Patient Name: Nito West Date of : 1950 Gender: Male Reason for Consult Reason for Consult: Other non-Emergent Clinical Note Clinical Note: per rn - "Patient is admitted this PM with DX: Pancytopenia, Fatigue/Myelodysplastic Syndrome. H/H=4.6/13.8, WBC=0.7, RBC=4.6, Platelet=2, Neutrophils=0.2. Is receiving 2 units PRBC & has an order to give 1 unit Platelet. Before the Hospitalist left, I asked if she wanted 1 unit or 2 units of Platelet given as she indicated, she said 2 but did not write orders for it. May we have an order for another unit of Platelet in addition to what was already ordered for a total of 2 units Platelet please. Thank you" 1 unit plt transfusion ordered
[2022-06-04] MEDS ORDERED: diphenhydrAMINE INJ 50 MG/ML VIAL IVP STA (02:32)
[2022-06-04] MEDS: SODIUM CHLORIDE FLUSH 0.9% 10 ML SYRINGE IVP SCH ×2 (02:52→09:29)
[2022-06-04 08:48] LABS: BASOPHILS % (AUTO) 0.9 %; LYMPHOCYTES # (AUTO) 0.5 10^3/uL (1.5-3.5); LYMPHOCYTES % (AUTO) 44.7 %; MEAN CORPUSCULAR HGB CONC 34.1 g/dL (32.0-36.0); MEAN PLATELET VOLUME 9.3 fL (7.4-11.4); MONOCYTES # (AUTO) 0.1 10^3/uL (0.0-1.0); MONOCYTES % (AUTO) 9.6 %; RED BLOOD COUNT 2.14 10^6/uL (4.70-6.10); RED CELL DISTRIBUTION WIDTH 14.8 % (12.0-15.0)
[2022-06-04 09:08] LABS: HCT - HEMATOCRIT 18.2 % (42.0-52.0); HGB - HEMOGLOBIN 6.2 g/dL (14.0-18.0); NEUTROPHILS # (AUTO) 0.5 10^3/uL (1.5-6.6); PLT - PLATELET COUNT 10 10^3/uL (130-450); WHITE BLOOD COUNT 1.1 x10^3/uL (4.8-10.8)
[2022-06-04 09:15] LABS: DIFFERENTIAL COMMENT MANUAL=AUTO DIFF; PLATELET ESTIMATE, MANUAL DECREASED (<130,000) (NORMAL); PLATELET MORPHOLOGY NORMAL APPEARANCE (NORMAL)
[2022-06-04] MEDS: SODIUM CHLORIDE FLUSH 0.9% 10 ML SYRINGE IVP PRN ×2 (09:29→12:30)
--- NOTE | 2022-06-04 10:13 | Discharge Plan ---
Discharge Plan Problem Reviewed?: Yes Disposition: Home, Self Care Condition: Stable Diet: Regular Activity Restrictions: Activity as Tolerated Shower Restrictions: No Driving Restrictions: No Health Concerns: You presented to our emergency room because of excessive fatigue. Shortness of breath. You already have a history of myelodysplastic syndrome and have a tra nsfusion requirement that is now up to 2 times a week. You were hoping to wait until June 04 to get transfused but you were so tired you came to the emergency room early. We identified you as needing 2 units of packed red cells and 2 pheresis pack of platelets according to the instructions left by the [facility]. You have not received that transfusion. At discharge your hemoglobin is 6.2. Your platelets are 10. In addition to this, you are COVID-positive. You are not currently ill with COVID but are positive. Plan of Treatment: Follow-up with the [facility] as to future needs for transfusion Quarantine for 10 days on the basis of your COVID positivity. We did discuss your resuscitative status while you were here. From a practical perspective, resuscitating a patient who has your disorder will not result in a good outcome. Even if we were to successfully get you back with a heartbeat and active breathing, the resuscitative effort in and of itself will result in catastrophic damage to rib cage, lungs, and most likely brain due to your low platelets. In short, getting a heartbeat and lung function back will not necessarily result in even the same limited baseline status you had before you needed resuscitation. With that in mind, you allowed us to change your resuscitative status from full code to DO NOT RESUSCITATE. Please be assured that a DO NOT RESUSCITATE status does not mean do not treat. DO NOT RESUSCITATE only applies for someone who has already , and we are trying to bring them back. You will still get all the treatment you would like to receive for any medical problem you have. Care Goals: Care goals were established with your conversation with your oncologist at your last visit. You would like to live as long as possible and as such we will continue with the experimental protocol at [facility] and continue with current blood transfusion under the guidance of Dr. Cassandra Brunner. Assessment: Alert, oriented white male who looks comfortable. Able to make his own decisions and is a lucid historian who promises to follow through with his [facility] appointments. No Smoking: If you smoke, Please STOP! Call for help. Follow-up with: Marco A Latif MD [Primary Care Provider] -
--- NOTE | 2022-06-04 10:40 | DISCHARGE SUMMARY ---
"Discharge Summary Admit Date: 06/03/22 Discharge Date: 06/04/22 Discharging Provider: Cece Avalos MD Primary Care Provider: Cherelle Saldana MD and Dr. Cassandra Brunner Code Status: Do Not Attempt Resuscitation Condition at Discharge: Stable Discharge Disposition: 01 Home, Self Care - DIAGNOSES Discharge Diagnoses with Status of Each Condition: 1. Fatigue associated with anemia 2. Pancytopenia 3. Myelodysplasia 4. COVID-19 positive - HPI History of Present Illness: Nito presented to the ED today with generalized weakness and dyspnea. He has a history significant for myelodysplasic syndrome. He is involved in a clinical trial with the [facility], he is transfusion dependent and is on a treatment of 2 units every week. He had his last transfusion on June 01 with [facility] and received a platelet transfusion but ran out of time to do his RBC transfusion. He was told to come back the following saturday (06/04) to finish but if he got worse over the weekend he should come in to the ED and have the blood transfusion performed. He came in with increased fatigue, a tingling sensation in his extremities and an overall feeling generalized weakness. Today he will be put on observation and given RBC transfusion per the protocol from the [facility] notes. Today he is able to sit up and have a conversation, and walk to the bathroom and back to his bed unassisted. He feels a tingly sensation in his extremities but denies chest pain, palpitations, abdominal pain, new swelling, blood in his stool or urine. He gets short of breath with mild exertion which is normal for him. He lives with his at home and he is able to walk around the house and the yard and do basic ADLs. He was screened for viral illness and is covid positive and asymptomatic. He denies headache, congestion, sore throat, lo st of taste or smell, fever. - Past Medical History Cardiovascular: reports: Hypertension, High cholesterol, Deep vein thrombosis, Pulmonary embolism Respiratory: reports: Sleep apnea, CPAP use Neuro: reports: None Endocrine/Autoimmune: reports: Type 2 diabetes GI: reports: GERD, Diverticulitis : reports: Benign prostate hypertrophy HEENT: reports: Chronic hearing loss Psych: reports: None Musculoskeletal: reports: Osteoarthritis, Gout Derm: reports: Other MRSA Hx?: No Other Past Medical History: MDS - Past Surgical History Ortho: reports: Rotator cuff repair, Shoulder arthroplasty - CONSULTS | PROCEDURES Procedures: Transfusion of 2 packed red cells that of irradiated blood. Transfusion of 2 platelet pheresis packs - HOSPITAL COURSE Hospital Course: Careful attention was paid to the [facility] [place] from [place]. Admission hemoglobin was 4.6. Admission platelets were 2. On the basis of the [facility] notes, he is to receive packed red cells to achieve a hemoglobin of 6.6. He needed to receive 2 platelet pheresis packs for platelets less than 5. Discharge hemoglobin is 6.2. Discharge hematocrit is 18.2. Platelets are 10. He is COVID- positive but has no symptoms. Resuscitative status was discussed at length with the patient. He initially wanted to be a full code. I carefully explained that from a practical perspective doing a full resuscitation in a gentleman who has such low platelets and such low blood counts will most likely result in catas trophic damage to rib cage, lung contusions, and possibly brain bleeds. Even in the best of circumstances the survivability of a full on resuscitation is low. In his case, even if he did survive, his comorbidities would severely impact functional status at recovery. As such with that in mind, the patient allowed us to change his CODE STATUS from full code to DO NOT RESUSCITATE. I have assured him that that does not mean do not treat. He will continue to receive what ever treatment he wants with regards to his myelodysplastic syndrome, and continued participation in his [facility] experimental protocol. At discharge he has tolerated the blood transfusions without any difficulty. There was no rash, pruritus. He was heavily premedicated with Tylenol, Solu- Medrol, Benadryl, and famotidine. Those were given twice over the course of his stay to get him through the 2 units of red cells and the 2 platelet pheresis packs. Temperature is 36.6. Heart rate is 56. Blood pressure 139/50. Respirations 16. 98% on room air. He has a scleral bleed in his right eye on t he median side. No hyphema. No labored respiration with clear lungs. Regular rate and rhythm. He is able to sit up, stand and walk without any ataxia or aid. He is discharged with instructions to quarantine for 10 days. He is not actively symptomatic with COVID so he will not be discharged with Paxlovid. This status was discussed with Dr. Brunner. However, because he is COVID-positive, he will not be able to get blood transfusions at the [facility]. Right now he is on twice weekly schedule. He will be sent to the lab here to get his hemoglobin and hematocrit drawn, and on the basis of the scheduled cutoff points, the patient can then be put in one of our rooms in the hospital for transfusion with covid precautions. He cannot get transfusions in the [facility] because of his COVID status. Dr. Brunner will instruct the [facility]. - ALLERGIES Allergies/Adverse Reactions: Allergies Allergy/AdvReac Type Severity Reaction Status Date / Time adhesive tape Allergy Rash Verified 05/29/22 10:05 - MEDICATIONS Home Medications: Ambulatory Orders Medication Instructions Recorded Confirmed Telmisartan/Hydrochlorothiazid 1 tab PO DAILY 06/29/13 06/03/22 [Micardis Hct 80-25 mg Tablet] allopurinoL [Allopurinol] 300 mg PO DAILY 06/29/13 06/03/22 Omeprazole 20 mg PO DAILY 05/17/20 06/03/22 Acyclovir [Zovirax] 400 mg PO BID 06/06/20 06/03/22 Folic Acid 1 mg PO DAILY 01/24/21 06/03/22 metFORMIN [Glucophage] 1,000 mg PO BIDWM 08/20/21 06/03/22 Escitalopram [Lexapro] 10 mg PO DAILY 12/16/21 06/03/22 Magnesium Oxide [Mag Ox] 400 mg PO DAILY 12/16/21 06/03/22 Prochlorperazine Maleate 10 mg PO DAILY 12/16/21 06/03/22 [Compazine] Ondansetron Odt [Zofran Odt] 4 mg TL Q4HR PRN 06/03/22 06/03/22 - LABS Result Diagrams: 06/04/22 08:29 06/03/22 14:10 - SEPSIS Current Stage of Sepsis: Ruled out"
[2022-06-04 13:09] VITALS: BP 129/60
== END 2022-06-04 12:45 | disposition home or self-care (01) ==
LOC: SUPCPDRO 12:54 → ED 12:54 → MS2 15:06
PROVIDERS: ADMIT Specialist; ATTEND Specialist
DX: D61.818 Other pancytopenia (principal); D46.9 Myelodysplastic syndrome, unspecified; I10 Essential (primary) hypertension; E78.00 Pure hypercholesterolemia, unspecified; G47.30 Sleep apnea, unspecified; E11.9 Type 2 diabetes mellitus without complications; K21.9 Gastro-esophageal reflux disease without esophagitis; H91.90 Unspecified hearing loss, unspecified ear; N40.0 Benign prostatic hyperplasia without lower urinary tract symptoms; M19.90 Unspecified osteoarthritis, unspecified site; M10.9 Gout, unspecified; U07.1 COVID-19; Z66 Do not resuscitate; Z79.84 Long term (current) use of oral hypoglycemic drugs; Z79.899 Other long term (current) drug therapy; Z80.3 Family history of malignant neoplasm of breast; Z82.49 Family history of ischemic heart disease and other diseases of the circulatory system; Z83.3 Family history of diabetes mellitus; Z86.711 Personal history of pulmonary embolism; Z86.718 Personal history of other venous thrombosis and embolism; Z87.891 Personal history of nicotine dependence
CPT/HCPCS: 36415; 80048; 85025; 86850; 86870; 86880; 86900; 86901; 86922; 87635; A9270; G0378; J1200; P9037; P9040; 36430; 96374; 96375; 96376; 99284

== ENCOUNTER 2022-06-11 16:21 | Inpatient (IN) | payer MEDICARE, OTHER ==
[2022-06-11] MEDS ORDERED: ONDANSETRON 4 MG/2 ML VIAL IVP PRN (16:33)
[2022-06-11] MEDS ORDERED: oxyCODONE 5 MG TABLET PO PRN (16:33)
[2022-06-11] MEDS ORDERED: CEFEPIME 2 GM in SODIUM CHLORIDE 0.9% MINIBAG 100 ML IV SCH (17:00)
--- NOTE | 2022-06-11 17:03 | HISTORY & PHYSICAL EXAMINATION ---
Chief Complaint - Chief Complaint Chief Complaint: fever and aches History of Present Illness - Admitted From Admitted From:: home via [facility] - History Obtained From Records Reviewed: [facility] History obtained from: patient and his daughter and RN renu Exam Limitations: none - History of Present Illness HPI Comment/Other: Mr. West has myelodysplastic syndrome and is involved in a clinical trial with [facility]. With his current oncologist he is not felt to be candidate for any further treatment. But he still comes to this oncology clinic to get transfusions as needed. He is transfusion dependent and gets transfusions about twice a week now for the last 3 weeks. From June 01 to today, he has been here at least 4 times to get transfusions. Sometimes through the [facility] and sometimes the [facility] is asking the inpatient [facility] side to do it. His last transfusion was June 03. He was COVID-positive Thanks week and we noted that during his blood transfusions. He tolerated those transfusions well. It is noted that he has transfusion reactions since it is getting exceedingly difficult to type and cross him due to antibody reactivity. He started developing aches beyond his usual misery in the last day. Runny nose. And has had diarrhea every 20 minutes for the last 2 days. He was seen in the [facility] clinic where he has been identified as having a fever to 38.7. He is a short of breath is usually is. No worse. No new cough. He has a same "puffy puffy" breathing that he has had for weeks if not months. No hemoptysis. No phlegm. No chest pain. No chest congestion. The diarrhea has come with abdominal cramping but no blood in the stool. The stool is liquid, and almost clear in its wateriness. He has diffuse aches and pains but they are not any worse than usual. No new joint effusions. As far as he knows he has no new skin tears, skin boils, abscesses or rashes. He denies urgency, frequency, dysuria. He denies hematuria. He denies flank pain. He is bleeding through his port site now. The emergency room was contacted because it is expected that he has neutropenic fever. However the emergency room provider declined to evaluate the patient and stated that they were under tremendous burden and asked someone else to evaluate the patient. I was able to go to the [facility] at their request and spoke to the patient. The [facility] nursing staff is told me that a CBC, urinalysis, chest x-ray and blood cultures of all been done.His white cell count is 2.1. Hemoglobin 6.2. Hematocrit 18.8. Platelets are 3. Neutrophils are 0.5. His PCR is still positive for COVID from last week. But its been 10 days. Urinalysis has few squamous cells, but otherwise clear. Culture is not indicated. History - Past Medical History Cardiovascular: reports: Hypertension, High cholesterol, Deep vein thrombosis, Pulmonary embolism Respiratory: reports: Sleep apnea, CPAP use Neuro: reports: None Endocrine/Autoimmune: reports: Type 2 diabetes GI: reports: GERD, Diverticulitis : reports: Benign prostate hypertrophy HEENT: reports: Chronic hearing loss Psych: reports: None Musculoskeletal: reports: Osteoarthritis, Gout Derm: reports: Other MRSA Hx?: No - Past Surgical History Ortho: reports: Rotator cuff repair, Shoulder arthroplasty Cardiovascular: reports: Other - Family & Social History Family History Comment/Other: Dad of complications of black lung. He was a smoker, drinker, had diabetes, high blood pressure, and heart disease. Mom has survived breast cancer and has diabetes. Living Situation: With spouse/s.o. 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 Retired in 2017. He smoked briefly in his early 20s. Denies any alcohol or illicit drug use. - Substance History Use: Uses substance without health or social issues: NONE - POLST Patient has POLST: No POLST Status: Full Code Meds/Allgy - Home Medications Home Medications: Ambulatory Orders Medication Instructions Recorded Confirmed Telmisartan/Hydrochlorothiazid 1 tab PO DAILY 06/29/13 06/03/22 [Micardis Hct 80-25 mg Tablet] allopurinoL [Allopurinol] 300 mg PO DAILY 06/29/13 06/03/22 Omeprazole 20 mg PO DAILY 05/17/20 06/03/22 Acyclovir [Zovirax] 400 mg PO BID 06/06/20 06/03/22 Folic Acid 1 mg PO DAILY 01/24/21 06/03/22 metFORMIN [Glucophage] 1,000 mg PO BIDWM 08/20/21 06/03/22 Escitalopram [Lexapro] 10 mg PO DAILY 12/16/21 06/03/22 Magnesium Oxide [Mag Ox] 400 mg PO DAILY 12/16/21 06/03/22 Prochlorperazine Maleate 10 mg PO DAILY 12/16/21 06/03/22 [Compazine] Ondansetron Odt [Zofran Odt] 4 mg TL Q4HR PRN 06/03/22 06/03/22 - Allergies Allergies/Adverse Reactions: Allergies Allergy/AdvReac Type Severity Reaction Status Date / Time adhesive tape Allergy Rash Verified 05/29/22 10:05 Review of Systems - Eyes Eyes: reports: Other (Scleral bleed is resolving. Present last admission) - Ears, Nose & Throat Ears, Nose & Throat: reports: Hearing loss, Nasal congestion, Bleeding gums. denies: Nasal pain, Sore throat, Hoarseness - Cardiovascular Cariovascular: reports: Exertional dyspnea, Decr. exercise tolerance. denies: Irregular heart rate, Palpitations, Chest pain - Respiratory Respiratory: reports: Cough, SOB with exertion (Chronic for months now. Present with even normal speech pattern). denies: Sputum production, Wheezing, SOB at rest - Gastrointestinal Gastrointestinal: reports: Abdominal pain (Started last night. But he does not describe it as a pain but more of a cramping when he needs to have a bowel movement), Abdominal distention, Diarrhea (Clear, watery), Nausea, Reflux/heartburn. denies: Constipation, Black stools, Bloody stools, Vomiting, Bile emesis, Manny blood emesis, Coffee grounds emesis - Genitourinary Genitourinary: denies: Dysuria, Frequency, Urgency, Hematuria, Flank pain - Musculoskeletal Musculoskeletal: reports: Muscle aches, Stiffness, Joint pain - Integumentary Integumentary: denies: Rash, Pruritis, Lesions - Neurological Neurological: reports: General weakness. denies: Focal weakness, Headache Exam - Vital Signs Reviewed Vital Signs: Yes - Physical Exam General Appearance: positive: Alert, Mild distress (In speaking to me in the MAC he is mildly tachypneic. He says this is the normal for him now. Oriented to p lace and time. Daughter seated next to him in chair) Eyes Bilateral: positive: PERRL, EOMI, Other (scleral bleed from last week resolving (R eye)) ENT: positive: No signs of dehydration, Other (coryza but no rhinorrhea) Neck: positive: No JVD, Lymphadenopathy (R), Lymphadenopathy (L). negative: Stiff neck Respiratory: negative: Wheezes, Rales, Rhonchi Cardiovascular: positive: Regular rate & rhythm, Systolic murmur Abdomen: positive: Non-tender, Nml bowel sounds, Other (bloated and midly distended) Skin: positive: Warm, Dry, Other (bruises, old and new) Extremities: positive: Full ROM, Pedal edema Neurologic/Psychiatric: positive: Oriented x3, CN's nml (2-12), Motor nml Conclusion/Plan - Problem List (1) Neutropenic fever Conclusion/Plan: Blood cultures have been done in the [facility]. UA is negative. While he is bleeding from the port it does not look infected. I am not seeing any skin abscesses. Chest x-ray has no acute radiographic abnormalities indicating pneumonia. There is no consolidation. No pleural effusions. Abdominal exam is negative for an acute abdomen but he is having diarrhea. Plan: Inpatient status Empiric antibiotic with cefepime Adjust antibiotics on the basis of any blood cultures that may come back (2) Pancytopenia Conclusion/Plan: Due to both chemotherapy of unknown type. He is getting treatment from [facility]. As well as from the natural progression of his disease. He is neutropenic, anemic, and thrombocytopenic. The [facility] clinic would like him infused 2 units of irradiated leukocyte reduced packed red cells. And they also want him infused 2 units of irradiated platelets. Premedication is with Benadryl 50 mg IV push and Tylenol 650 mg. The patient tells me he would like to Benadryl pushed very slowly because he gets very "woozy" when he goes too fast. Plan: After transfusion we will get a CBC for tomorrow (3) Myelodysplasia (myelodysplastic syndrome) Conclusion/Plan: Terminal illness. Patient has been told by oncology over the last couple of months that there is nothing more they can offer. Patient enrolled himself in a experimental protocol at [facility]. ACP held last week and he is DNR. Still wants blood transfusions. Would like to in the hospital. Daughter wants to take him home to her house. He is currently refusing her offer. He cannot go home to since his is experiencing her own life crisis w binge drinking right now and would not be able to take care of him. He refuses Hospice because he would have to stop blood transfusions so he can't get to [facility], or SNF w hospice, or DOC/[facility] w hospice. Daughter is Vijaya Pham [phone] and she is POA. If he gets confused enough or debilitated enough she will take him home to be with her. (4) Diarrhea Conclusion/Plan: He seems to be describing clear watery diarrhea. There is not even any stool or food in it. I suspect malabsorption. There is no blood in it so I do not think he is sloughing or bleeding into his colon because of his thrombocytopenia. Check for C. difficile Check for cultures of Salmonella, Shigella, Campylobacter Plan: IV hydration Lomotil if C. difficile negative BMP tomorrow morning. Qualifiers: Diarrhea type: unspecified type Qualified Code(s): R19.7 - Diarrhea, unspecified (5) Hypertension Conclusion/Plan: With check-in to [facility] he is 95/55. Also tachycardic 115. I will hold off on giving him his usual home medications of telmisartan and hydrochlorothiazide. Qualifiers: Hypertension type: primary hypertension Qualified Code(s): I10 - Essential (primary) hypertension (6) Type 2 diabetes mellitus, controlled Conclusion/Plan: He is not eating very much. Takes oral medication at home. Depending on his initial glucose the first day or two, I may not even order sliding scale insulin due to his serious status. Qualifiers: Diabetes mellitus correction insulin use: without cellular equipment installer use - Lab Results Lab results reviewed: Yes Core Measures - Anticipated LOS I expect patient to be DC'd or transferred within 96 hours.: Yes - DVT/VTE - Prophylaxis VTE/DVT Device ordered at admit?: Yes
[2022-06-11] MEDS ORDERED: ACETAMINOPHEN 325 MG TABLET PO ONE (17:32)
[2022-06-11] MEDS: SODIUM CHLORIDE FLUSH 0.9% 10 ML SYRINGE IVP SCH (17:59)
[2022-06-11] MEDS ORDERED: diphenhydrAMINE INJ 50 MG/ML VIAL IVP ONE (18:00)
[2022-06-11] MEDS: ONDANSETRON ODT 4 MG TABLET TL PRN (18:13)
[2022-06-11] MEDS: DIPHENOX/ATROPINE 2.5/0.025 MG TABLET PO PRN ×3 (21:27→23:02)
--- NOTE | 2022-06-11 22:55 | PROVIDER PROGRESS NOTE ---
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 Receives Frequent platlets and blood transfusions. Gets premed with 650mg Tylenol and 50mg IV benedryl to prevent hives. Running 2nd unit platelets now. Starting to get itchy. Last Benedryl at 1800. Repeat order please?" Benadryl 25 mg ivp q 6 hrs prn itching ordered
[2022-06-11] MEDS ORDERED: diphenhydrAMINE INJ 50 MG/ML VIAL ONE (22:59)
[2022-06-11] MEDS: diphenhydrAMINE INJ 50 MG/ML VIAL IVP PRN (23:02)
[2022-06-12] MEDS: SODIUM CHLORIDE FLUSH 0.9% 10 ML SYRINGE IVP SCH ×3 (01:00→17:36)
[2022-06-12] MEDS: CEFEPIME 2 GM in SODIUM CHLORIDE 0.9% MINIBAG 100 ML IV SCH ×3 (04:05→20:29)
[2022-06-12] MEDS: DIPHENOX/ATROPINE 2.5/0.025 MG TABLET PO PRN ×5 (05:19→19:14)
[2022-06-12 09:50] LABS: ALBUMIN/GLOBULIN RATIO 1.2 (1.0-2.2); ALKALINE PHOSPHATASE 44 IU/L (42-121); ALT ALANINE AMINOTRANSFERASE < 10 IU/L (10-60); AST ASPARTATE AMINOTRANSFERASE 10 IU/L (10-42); BILIRUBIN,TOTAL 1.2 mg/dL (0.2-1.0); BUN - BLOOD UREA NITROGEN 31 mg/dL (6-20); CALCIUM 8.1 mg/dL (8.5-10.3); CARBON DIOXIDE - CO2 24 mmol/L (21-32); CHLORIDE 98 mmol/L (101-111); GFR - MDRD 74 (>89); GLUCOSE 280 mg/dL (70-100); POTASSIUM 3.6 mmol/L (3.5-5.0); SODIUM 133 mmol/L (135-145); TOTAL PROTEIN 5.5 g/dL (6.7-8.2)
[2022-06-12] MEDS ORDERED: SODIUM CHLORIDE 0.9% 1,000 ML IV SCH (11:00)
--- NOTE | 2022-06-12 15:14 | PROVIDER PROGRESS NOTE ---
Assessment/Plan - Problem List (1) Neutropenic fever Assessment/Plan: Blood cultures have been done in the [facility] as he was being admitted on 06/11. His U/A was negative. Even though he was bleeding from the port, it does not look infected. Not seeing any skin abscesses. Chest x-ray has no acute radiographic abnormalities indicating pneumonia, there is no consolidation, no pleural effusions. Abdominal exam is negative for an acute abdomen although he is having diarrhea. Plan: Inpatient admission Continue empiric antibiotic using cefepime Adjust antibiotics on the basis of any blood cultures that may come back or source identified (2) Pancytopenia Conclusion/Plan: Due to both chemotherapy (unknown type, that he is getting treatment from [facility]), as well as from the natural progression of his disease. He is neutropenic, anemic, and thrombocytopenic. Our [facility] clinic would like him infused 2 units of irradiated leukocyte reduced packed red cells. And they also want him infused 2 units of irradiated platelets. Premedication is with Benadryl 50 mg IV push and Tylenol 650 mg. The patient tells me he would like to Benadryl pushed very slowly because he gets very "woozy" when he goes too fast. Plan: After transfusion we will get a CBC tomorrow (3) Myelodysplasia (myelodysplastic syndrome) Conclusion/Plan: Terminal illness. Patient has been told by oncology over the last couple of months that there is nothing more they can offer. Patient enrolled himself in a experimental protocol at [facility]. ACP held last week and he is DNR. Still wants blood transfusions. Would like to in the hospital. Daughter wants to take him home to her house. He is currently refusing her offer. He cannot go home to since his is experiencing her own life crisis w binge drinking right now and would not be able to take care of him. He refuses Hospice because he would have to stop blood transfusions so he can't get to [facility], or SNF w hospice, or DOC/residential w hospice. Daughter is Vijaya Pham [phone] and she is POA. If he gets confused enough or debilitated enough she will take him home to be with her. (4) Diarrhea Conclusion/Plan: He seems to be describing clear watery diarrhea. There is not even any stool or food in it. We suspect malabsorption. There is no blood in it so I do not think he is sloughing or bleeding into his colon because of his thrombocytopenia. Check for C. difficile and result was neg Check for cultures of Salmonella, Shigella, Campylobacter, still pending Plan: IV hydration Lomotil, increase frequency, since C. difficile negative Today will start iv NS Start PPN, then will stop NS BMPdaily Qualifiers: Diarrhea type: unspecified type Qualified Code(s): R19.7 - Diarrhea, unspecified (5) Hypertension Conclusion/Plan: BP is soft at 95/55. He is also tachycardic 115. Plan: We held off on giving him his usual home BP medications of telmisartan and hydrochlorothiazide. Today will start iv NS Qualifiers: Hypertension type: primary hypertension Qualified Code(s): I10 - Essential (primary) hypertension (6) Type 2 diabetes mellitus, controlled Conclusion/Plan: He was not eating very much. Takes oral medication for DM when at home. Plan: Start PPN Start ss Insulin coverage for glu checks q6h. Qualifiers: Diabetes mellitus intermodal customer service insulin use: without intermodal customer service use - Current Meds Current Meds: Current Medications Generic Name Dose Route Start Last Admin Trade Name Freq PRN Reason Stop Dose Admin Diphenhydramine HCl 25 mg 06/11/22 22:53 06/11/22 23:02 Diphenhydramine Inj 50 Mg/Ml Vial IVP 25 mg Q6H PRN Administration Allergy Symptoms Diphenoxylate HCl/Atropine 1 tab 06/12/22 10:28 06/12/22 14:38 Diphenox/Atropine 2.5/0.025 Mg Tablet PO 1 tab Q4H PRN Administration Diarrhea Cefepime HCl 2 gm/ Sodium 100 mls @ 200 mls/hr 06/12/22 02:00 06/12/22 11:25 Chloride IV Infused Q8H ANUSHA Infusion Sodium Chloride 1,000 mls @ 83.333 mls/hr 06/12/22 11:00 06/12/22 14:37 Normal Saline 0.9% IV 06/12/22 18:30 83.333 mls/hr .Q12H ANUSHA Administration Ondansetron HCl 4 mg 06/11/22 16:33 06/11/22 18:13 Ondansetron Odt 4 Mg Tablet TL 4 mg Q6HR PRN Administration Nausea / Vomiting Sodium Chloride 10 ml 06/11/22 17:00 06/12/22 08:16 Sodium Chloride Flush 0.9% 10 Ml Syringe IVP 10 ml 0100,0900,1700 ANUSHA Administration - Lab Result Fish Bone Diagrams: 06/12/22 09:12 06/12/22 09:12 - Additional Planning My Orders: My Active Orders 06/12/22 10:28 Diphenoxylate/Atropine [Lomotil] 1 tab PO Q4H PRN 06/12/22 11:00 Sodium Chloride 0.9% [Normal Saline 0.9%] 1,000 ml IV 83.333 mls/hr 06/12/22 Lunch Clear Liquid Diet [DIET] 06/12/22 12:48 Blood Glucose Checks - NPO [RC] 0600,1200,1800,0000 Daily Weight [RC] DAILY Initiate Hypoglycemia Protocol [RC] .protocol Message to Nursing [] QSHIFT 06/12/22 18:00 Insulin Regular Human [Humulin R] 1 - 5 unit SUBQ Q6HR 06/12/22 19:00 Fat Emulsion 20% [Intralipid 20%] 250 ml IV 1900 Multivitamin [Infuvite] 10 ml Trace Elements [Tralement Vial] 1 ml Ppn (Clinimix E 4.25/5) [Clinimix E 4.25%-5% Solution] 2,000 ml IV 1900 06/13/22 05:00 CBC - COMP BLD CT W/AUTO DIFF [HEME] DAILYLAB COMPREHENSIVE METABOLIC PANEL [CHEM] DAILYLAB MAGNESIUM [CHEM] DAILYLAB PHOSPHORUS [CHEM] DAILYLAB PREALBUMIN [CHEM] Routine TRIGLYCERIDES [CHEM] Routine 06/14/22 05:00 CBC - COMP BLD CT W/AUTO DIFF [HEME] DAILYLAB COMPREHENSIVE METABOLIC PANEL [CHEM] DAILYLAB MAGNESIUM [CHEM] Routine PHOSPHORUS [CHEM] Routine 06/15/22 05:00 CBC - COMP BLD CT W/AUTO DIFF [HEME] DAILYLAB COMPREHENSIVE METABOLIC PANEL [CHEM] DAILYLAB MAGNESIUM [CHEM] Routine PHOSPHORUS [CHEM] Routine PREALBUMIN [CHEM] Routine TRIGLYCERIDES [CHEM] Routine 06/16/22 05:00 CBC - COMP BLD CT W/AUTO DIFF [HEME] DAILYLAB COMPREHENSIVE METABOLIC PANEL [CHEM] DAILYLAB 06/17/22 05:00 COMPREHENSIVE METABOLIC PANEL [CHEM] Routine MAGNESIUM [CHEM] Routine PHOSPHORUS [CHEM] Routine PREALBUMIN [CHEM] Routine TRIGLYCERIDES [CHEM] Routine 06/20/22 05:00 COMPREHENSIVE METABOLIC PANEL [CHEM] Routine MAGNESIUM [CHEM] Routine PHOSPHORUS [CHEM] Routine PREALBUMIN [CHEM] Routine TRIGLYCERIDES [CHEM] Routine Subjective - Subjective Patient Reports: Diarrhea (Having 6 BMs in 3 hours, all watery, no pain or cramps) Objective Vital Signs: Vital Signs - 24 hr 06/11/22 06/12/22 06/12/22 17:47 00:13 08:11 Temperature 36.8 C 36.6 C 36.9 C Heart Rate [ 105 H 87 105 H Brachial] Respiratory 24 18 19 Rate Blood Pressure 107/53 L 106/55 L 116/56 L [Right Brachial artery] O2 Saturation 98 99 95 Oxygen O2 Source Room air I&O (Last 24 Hrs): Intake and Output Totals x24h 06/10/22 06/11/22 06/12/22 23:59 23:59 23:59 Intake Total 400 960 Balance 400 960 General: Alert, Oriented x3, Other (Pale) HEENT: Mucous membr. moist/pink, Other (Pale) Neck: Supple Neuro: Alert, Non Focal Cardiovascular: Other (Irreg) Respiratory: No respiratory distress Abdomen: Soft Extremities: No edema - Results Results: Laboratory Results WBC Cancelled 06/12/22 09:12 Corrected WBC Cancelled 06/12/22 09:12 RBC Cancelled 06/12/22 09:12 Hgb Cancelled 06/12/22 09:12 Hct Cancelled 06/12/22 09:12 MCV Cancelled 06/12/22 09:12 MCH Cancelled 06/12/22 09:12 MCHC Cancelled 06/12/22 09:12 RDW Cancelled 06/12/22 09:12 Plt Count Cancelled 06/12/22 09:12 MPV Cancelled 06/12/22 09:12 Neut # (Auto) Cancelled 06/12/22 09:12 Lymph # (Auto) Cancelled 06/12/22 09:12 [place] # (Auto) Cancelled 06/12/22 09:12 Eos # (Auto) Cancelled 06/12/22 09:12 Baso # (Auto) Cancelled 06/12/22 09:12 Absolute Nucleated RBC Cancelled 06/12/22 09:12 Total Counted Cancelled 06/12/22 09:12 Band Neuts % (Manual) Cancelled 06/12/22 09:12 Reactive Lymphs % (Man) Cancelled 06/12/22 09:12 Abnorm Lymph % (Manual) Cancelled 06/12/22 09:12 Metamyelocytes % Cancelled 06/12/22 09:12 Myelocytes % Cancelled 06/12/22 09:12 Promyelocytes % Cancelled 06/12/22 09:12 Blast Cells % Cancelled 06/12/22 09:12 Plasma Cell % (Manual) Cancelled 06/12/22 09:12 Other Cells % Cancelled 06/12/22 09:12 Nucleated RBC % Cancelled 06/12/22 09:12 Neutrophils # (Manual) Cancelled 06/12/22 09:12 Lymphocytes # (Manual) Cancelled 06/12/22 09:12 Monocytes # (Manual) Cancelled 06/12/22 09:12 Eosinophils # (Manual) Cancelled 06/12/22 09:12 Basophils # (Manual) Cancelled 06/12/22 09:12 Nucleated RBCs Cancelled 06/12/22 09:12 Differential Comment Cancelled 06/12/22 09:12 Manual Slide Review Cancelled 06/12/22 09:12 WBC Morphology Cancelled 06/12/22 09:12 Platelet Estimate Cancelled 06/12/22 09:12 Platelet Morphology Cancelled 06/12/22 09:12 RBC Morph Micro Appear Cancelled 06/12/22 09:12 Sodium 133 mmol/L (135-145) L 06/12/22 09:12 Potassium 3.6 mmol/L (3.5-5.0) 06/12/22 09:12 Chloride 98 mmol/L (101-111) L 06/12/22 09:12 Carbon Dioxide 24 mmol/L (21-32) 06/12/22 09:12 Anion Gap 11.0 (6-13) 06/12/22 09:12 BUN 31 mg/dL (6-20) H 06/12/22 09:12 Creatinine 1.0 mg/dL (0.6-1.2) 06/12/22 09:12 Estimated GFR (MDRD) 74 (>89) L 06/12/22 09:12 Glucose 280 mg/dL (70-100) H 06/12/22 09:12 Calcium 8.1 mg/dL (8.5-10.3) L 06/12/22 09:12 Total Bilirubin 1.2 mg/dL (0.2-1.0) H 06/12/22 09:12 AST 10 IU/L (10-42) 06/12/22 09:12 ALT < 10 IU/L (10-60) L 06/12/22 09:12 Alkaline Phosphatase 44 IU/L (42-121) 06/12/22 09:12 Lactate Dehydrogenase 207 IU/L (91-225) 06/12/22 09:12 Total Protein 5.5 g/dL (6.7-8.2) L 06/12/22 09:12 Albumin 3.0 g/dL (3.2-5.5) L 06/12/22 09:12 Globulin 2.5 g/dL (2.1-4.2) 06/12/22 09:12 Albumin/Globulin Ratio 1.2 (1.0-2.2) 06/12/22 09:12 Stl C. diff Tox B Gene NEGATIVE (NEGATIVE) 06/11/22 17:49 Slides for Path Review Cancelled 06/12/22 09:12 - Procedures Procedures: Procedures TRANSFUSE NONAUT RED BLOOD CELLS IN PERIPH VEIN, PERC (08/19/21)
[2022-06-12] MEDS: INSULIN REGULAR HUMAN 300 UNIT/3 ML VIAL SUBQ SCH (17:37)
[2022-06-12] MEDS: FAT EMULSION 20% 250 ML IV SCH (19:14)
[2022-06-12] MEDS: PPN (CLINIMIX E 4.25/5) 2,000 ML with MULTIVITAMIN 10 ML, TRACE ELEMENTS 1 ML IV SCH ×3 (19:14)
[2022-06-12] MEDS: ONDANSETRON ODT 4 MG TABLET TL PRN (20:29)
[2022-06-12] MEDS: ACETAMINOPHEN 325 MG TABLET PO PRN (20:29)
[2022-06-13] MEDS: INSULIN REGULAR HUMAN 300 UNIT/3 ML VIAL SUBQ SCH ×3 (00:23→11:52)
[2022-06-13] MEDS: ACETAMINOPHEN 325 MG TABLET PO PRN ×2 (00:24→08:30)
[2022-06-13] MEDS: SODIUM CHLORIDE FLUSH 0.9% 10 ML SYRINGE IVP SCH ×3 (00:27→21:51)
[2022-06-13] MEDS: CEFEPIME 2 GM in SODIUM CHLORIDE 0.9% MINIBAG 100 ML IV SCH ×3 (03:57→21:47)
[2022-06-13 06:14] LABS: BASOPHILS % (AUTO) 0.5 %; LYMPHOCYTES % (AUTO) 22.1 %; MEAN CORPUSCULAR HEMOGLOBIN 28.7 pg (27.0-31.0); MEAN CORPUSCULAR HGB CONC 33.5 g/dL (32.0-36.0); MEAN CORPUSCULAR VOLUME 85.6 fL (80.0-94.0); MEAN PLATELET VOLUME 12.4 fL (7.4-11.4); MONOCYTES % (AUTO) 18.6 %; NEUTROPHILS % (AUTO) 25.2 %; RED BLOOD COUNT 2.16 10^6/uL (4.70-6.10); RED CELL DISTRIBUTION WIDTH 14.7 % (12.0-15.0)
[2022-06-13 06:25] LABS: ALBUMIN 2.4 g/dL (3.2-5.5); ALBUMIN/GLOBULIN RATIO 0.9 (1.0-2.2); ALKALINE PHOSPHATASE 40 IU/L (42-121); ALT ALANINE AMINOTRANSFERASE < 10 IU/L (10-60); AST ASPARTATE AMINOTRANSFERASE < 10 IU/L (10-42); BUN - BLOOD UREA NITROGEN 26 mg/dL (6-20); CALCIUM 7.7 mg/dL (8.5-10.3); CARBON DIOXIDE - CO2 27 mmol/L (21-32); CHLORIDE 97 mmol/L (101-111); CREATININE 0.9 mg/dL (0.6-1.2); GFR - MDRD 83 (>89); GLUCOSE 237 mg/dL (70-100); MAGNESIUM 1.4 mg/dL (1.7-2.8); PHOSPHORUS 2.8 mg/dL (2.5-4.6); POTASSIUM 3.1 mmol/L (3.5-5.0); PREALBUMIN 9 mg/dL (18-45); SODIUM 133 mmol/L (135-145); TRIGLYCERIDES 151 mg/dL
[2022-06-13 06:28] LABS: HCT - HEMATOCRIT 18.5 % (42.0-52.0); HGB - HEMOGLOBIN 6.2 g/dL (14.0-18.0); PLT - PLATELET COUNT 12 10^3/uL (130-450)
[2022-06-13 06:29] LABS: ABNORMAL LYMPHS % (MANUAL) 0 %
[2022-06-13 06:44] LABS: BAND NEUTROPHILS % (MANUAL) 3 %; BASOPHILS % (MANUAL) 1 %; BLAST CELLS % (MANUAL) 2 %; EOSINOPHILS # (MANUAL) 0.2 10^3/uL (0-0.7); LYMPHOCYTES # (MANUAL) 0.5 10^3/uL (1.5-3.5); LYMPHOCYTES % (MANUAL) 27 %; METAMYELOCYTES % (MANUAL) 1 %; MONOCYTES # (MANUAL) 0.2 10^3/uL (0.0-1.0); MYELOCYTES % (MANUAL) 7 %; NEUTROPHILS # (MANUAL) 0.8 10^3/uL (1.5-6.6)
[2022-06-13 06:46] LABS: DIFFERENTIAL COMMENT MANUAL DIFFERENTIAL; PLATELET ESTIMATE, MANUAL DECREASED (<130,000) (NORMAL); PLATELET MORPHOLOGY NORMAL APPEARANCE (NORMAL); RBC MORPHOLOGY (MULTIPLE) 1+ MICROCYTOSIS (NORMAL); WBC MORPHOLOGY (MULTIPLE) NORMAL APPEARANCE (NORMAL)
[2022-06-13] MEDS ORDERED: ACETAMINOPHEN 325 MG TABLET PO ONE (07:38)
[2022-06-13] MEDS ORDERED: diphenhydrAMINE INJ 50 MG/ML VIAL IVP ONE (08:00)
[2022-06-13] MEDS: DIPHENOX/ATROPINE 2.5/0.025 MG TABLET PO PRN ×4 (08:30→23:33)
[2022-06-13] MEDS ORDERED: MAGNESIUM SULFATE 2 GRAM 2 GM/50 ML BAG IV ONE (10:28)
[2022-06-13] MEDS: SODIUM CHLORIDE FLUSH 0.9% 10 ML SYRINGE IVP PRN (11:00)
[2022-06-13] MEDS ORDERED: POTASSIUM CHLORIDE 10 MEQ CAPSULE PO ONE (11:00)
[2022-06-13] MEDS ORDERED: MAGNESIUM OXIDE 400 MG TABLET PO ONE (12:00)
--- NOTE | 2022-06-13 14:04 | PROVIDER PROGRESS NOTE ---
Assessment/Plan - Problem List (1) Bacteremia due to Staphylococcus Assessment/Plan: A blood culture drawn from the port port quickly turned positive for GPC. Following that a right arm blood culture has also turned positive. The PCR shows Staph. One microbiology report says it might be a contaminant, Staph epidermidis. However, since 2 separate sites are growing Staph, this is probably a true bacteremia. This is very likely the cause of his neutropenic fevers. Plan: We are awaiting the final Staph identification and sensitivities Continue empiric iv Cefepime Will add iv Vanco for poss TORIBIO I will be contacting his [facility] Oncologist, Dr. Cassandra Brunner who is covering for Dr. Ross in [facility], to discuss whether the port should be removed and another port implanted several days later. I discussed this with the patient, and his son, at bedside. (2) Pancytopenia Conclusion/Plan: Due to both chemotherapy (unknown type, that he is getting treatment from [facility]), as well as from the natural progression of his disease. He is neutropenic, anemic, and thrombocytopenic. Our [facility] clinic wanted him transfused using irradiated leukocyte reduced packed red cells. And they also want him infused w/ 2 units of irradiated platelets. Premedication is with Benadryl 50 mg IV push and Tylenol 650 mg. The patient tells me he would like to Benadryl pushed very slowly because he gets very "woozy" when he goes too fast. Plan: Another 1U PRBCs ordered to day for a Hgb of 6.2. (3) Myelodysplasia (myelodysplastic syndrome) Conclusion/Plan: Terminal illness. Patient has been told by oncology over the last couple of months that there is nothing more they can offer. Patient enrolled himself in a experimental protocol at [facility] and gets iv therapy (he does not know if he has the treatment med or the control). ACP was held with him at the last hospitalization, last week and he is DNR. Still wants blood transfusions. Would like to in the hospital. Daughter wants to take him home to her house. He is currently refusing her offer. He cannot go home to since his is experiencing her own life crisis w binge drinking right now and would not be able to take care of him. He refuses Hospice because he would have to stop blood transfusions so he can't get to [facility], or SNF w hospice, or [facility] w hospice. Daughter is Vijaya Pham [phone] and she is POA. If he gets confused enough or debilitated enough she will take him home to be with her. (4) Chronic diarrhea Conclusion/Plan: He seems to be describing clear watery diarrhea. There is not even any stool or food in it. We suspect malabsorption. There is no blood in it so I do not think he is sloughing or bleeding into his colon because of his thrombocytopenia. Checked for C. difficile and result was neg Checked for cultures of Salmonella, Shigella, Campylobacter, still pending Plan: IV hydration Lomotil, will increase frequency, since C. difficile negative Started PPN, and stopped NS Will advance his diet to solids, since this is not episodic diarrhea, but has been for many mos. BMPdaily Qualifiers: Diarrhea type: unspecified type Qualified Code(s): R19.7 - Diarrhea, unspecified (5) Hx Hypertension Conclusion/Plan: BP was soft at 95/55. He was also tachycardic 115. Plan: We held off on giving him his usual home BP medications of telmisartan and hydrochlorothiazide. He got iv NS, changed to iv PPN last nite Qualifiers: Hypertension type: primary hypertension Qualified Code(s): I10 - Essential (primary) hypertension (6) Type 2 diabetes mellitus, controlled Conclusion/Plan: He was not eating very much. Takes oral medication for DM when at home. Plan: Started PPN Started ss Insulin coverage for glu checks q6h. Since we will advance his diet, will change to glu checks ac and hs. Qualifiers: Diabetes mellitus ocean transportation intermediary insulin use: without ocean transportation intermediary use (7) Hypokalemia Conclusion/Plan: From poor intake and losses in chronic diarrhea. Will replace po and iv. Follow BMP daily (8) Hypomagnesemia Conclusion/Plan: From poor intake and losses in chronic diarrhea. Will replace po and iv. Follow Mg daily - Current Meds Current Meds: Current Medications Generic Name Dose Route Start Last Admin Trade Name Freq PRN Reason Stop Dose Admin Acetaminophen 650 mg 06/11/22 16:33 06/13/22 08:30 Acetaminophen 325 Mg Tablet PO 650 mg Q4HR PRN Administration Pain 1 to 4, or Fever Diphenhydramine HCl 25 mg 06/11/22 22:53 06/11/22 23:02 Diphenhydramine Inj 50 Mg/Ml Vial IVP 25 mg Q6H PRN Administration Allergy Symptoms Diphenoxylate HCl/Atropine 1 tab 06/12/22 10:28 06/13/22 08:30 Diphenox/Atropine 2.5/0.025 Mg Tablet PO 1 tab Q4H PRN Administration Diarrhea Cefepime HCl 2 gm/ Sodium 100 mls @ 200 mls/hr 06/12/22 02:00 06/13/22 11:29 Chloride IV Infused Q8H [facility] Infusion Multivitamins 10 ml/ TRACE 2,011 mls @ 83 mls/hr 06/12/22 19:00 06/13/22 11:13 ELEMENTS 1 ml/ Amino Acids/ IV 0 mls/hr Electrolytes/Dextrose 1900 [facility] Infusion Protocol Fat Emulsion Intravenous 250 mls @ 21 mls/hr 06/12/22 19:00 06/13/22 07:40 Intralipid 20% IV Infused 1900 [facility] Infusion Insulin Human Regular 1 - 5 unit 06/12/22 18:00 06/13/22 11:52 Insulin Regular Human 300 Unit/3 Ml Vial SUBQ 4 unit Q6HR [facility] Administration Protocol Ondansetron HCl 4 mg 06/11/22 16:33 06/12/22 20:29 Ondansetron Odt 4 Mg Tablet TL 4 mg Q6HR PRN Administration Nausea / Vomiting Sodium Chloride 10 ml 06/11/22 16:33 06/13/22 11:00 Sodium Chloride Flush 0.9% 10 Ml Syringe IVP 10 ml PRN PRN Administration NEEDED PER PROVIDER ORDERS Sodium Chloride 10 ml 06/11/22 17:00 06/13/22 08:26 Sodium Chloride Flush 0.9% 10 Ml Syringe IVP Not Given 0100,0900,1700 [facility] - Lab Result Fish Bone Diagrams: 06/13/22 06:00 06/13/22 06:00 - Additional Planning My Orders: My Active Orders 06/12/22 18:00 Insulin Regular Human [Humulin R] 1 - 5 unit SUBQ Q6HR 06/12/22 18:39 Miscellaenous Nursing Order [RC] QSHIFT 06/12/22 19:00 Fat Emulsion 20% [Intralipid 20%] 250 ml IV 1900 Multivitamin [Infuvite] 10 ml Trace Elements [Tralement Vial] 1 ml Ppn (Clinimix E 4.25/5) [Clinimix E 4.25%-5% Solution] 2,000 ml IV 1900 06/13/22 TYPE AND SCREEN Stat 06/13/22 07:38 Transfuse RBCs Leukoreduced [RC] .ONCE 06/13/22 11:00 Potassium Chlor 10 Meq/100 ml [Potassium Chloride] 10 meq in 100 ml IV Q1H 06/14/22 05:00 CBC - COMP BLD CT W/AUTO DIFF [HEME] DAILYLAB COMPREHENSIVE METABOLIC PANEL [CHEM] DAILYLAB MAGNESIUM [CHEM] Routine PHOSPHORUS [CHEM] Routine 06/15/22 05:00 CBC - COMP BLD CT W/AUTO DIFF [HEME] DAILYLAB COMPREHENSIVE METABOLIC PANEL [CHEM] DAILYLAB MAGNESIUM [CHEM] Routine PHOSPHORUS [CHEM] Routine PREALBUMIN [CHEM] Routine TRIGLYCERIDES [CHEM] Routine 06/16/22 05:00 CBC - COMP BLD CT W/AUTO DIFF [HEME] DAILYLAB COMPREHENSIVE METABOLIC PANEL [CHEM] DAILYLAB 06/17/22 05:00 COMPREHENSIVE METABOLIC PANEL [CHEM] Routine MAGNESIUM [CHEM] Routine PHOSPHORUS [CHEM] Routine PREALBUMIN [CHEM] Routine TRIGLYCERIDES [CHEM] Routine 06/20/22 05:00 COMPREHENSIVE METABOLIC PANEL [CHEM] Routine MAGNESIUM [CHEM] Routine PHOSPHORUS [CHEM] Routine PREALBUMIN [CHEM] Routine TRIGLYCERIDES [CHEM] Routine Subjective - Subjective Patient Reports: Feeling Better (He explains that his diarrhea is chronic, not up and down after chemo.) Objective Vital Signs: Vital Signs - 24 hr 06/12/22 06/12/22 06/13/22 15:58 23:49 09:10 Temperature 36.5 C 37 C 36.8 C Heart Rate [ 70 77 79 Brachial] Respiratory 18 16 22 Rate Blood Pressure 121/56 L [Left Brachial artery] Blood Pressure 107/48 L 102/52 L [Right Brachial artery] O2 Saturation 100 98 97 Oxygen O2 Source CPAP I&O (Last 24 Hrs): Intake and Output Totals x24h 06/11/22 06/12/22 06/13/22 23:59 23:59 23:59 Intake Total 400 2584.733 1962.0 Balance 400 2584.733 1962.0 General: Alert, Oriented x3, Other (Cachectic) HEENT: Mucous membr. moist/pink Neck: Supple, No JVD Neuro: Alert, Non Focal Cardiovascular: Regular rate Respiratory: No respiratory distress Abdomen: No tenderness Extremities: No edema - Results Results: Laboratory Results WBC 2.0 x10^3/uL (4.8-10.8) L* 06/13/22 06:00 Corrected WBC Cancelled 06/12/22 09:12 RBC 2.16 10^6/uL (4.70-6.10) L 06/13/22 06:00 Hgb 6.2 g/dL (14.0-18.0) L* 06/13/22 06:00 Hct 18.5 % (42.0-52.0) L* 06/13/22 06:00 MCV 85.6 fL (80.0-94.0) 06/13/22 06:00 MCH 28.7 pg (27.0-31.0) 06/13/22 06:00 MCHC 33.5 g/dL (32.0-36.0) 06/13/22 06:00 RDW 14.7 % (12.0-15.0) 06/13/22 06:00 Plt Count 12 10^3/uL (130-450) L* 06/13/22 06:00 MPV 12.4 fL (7.4-11.4) H 06/13/22 06:00 Neut # (Auto) Not Reportable 06/13/22 06:00 Lymph # (Auto) Not Reportable 06/13/22 06:00 [place] # (Auto) Not Reportable 06/13/22 06:00 Eos # (Auto) Not Reportable 06/13/22 06:00 Baso # (Auto) Not Reportable 06/13/22 06:00 Absolute Nucleated RBC Not Reportable 06/13/22 06:00 Total Counted 100 06/13/22 06:00 Band Neuts % (Manual) 3 % (0-10) 06/13/22 06:00 Reactive Lymphs % (Man) Cancelled 06/12/22 09:12 Abnorm Lymph % (Manual) 0 % 06/13/22 06:00 Metamyelocytes % 1 % (-0) H 06/13/22 06:00 Myelocytes % 7 % (-0) H 06/13/22 06:00 Promyelocytes % Cancelled 06/12/22 09:12 Blast Cells % 2 % H* 06/13/22 06:00 Plasma Cell % (Manual) Cancelled 06/12/22 09:12 Other Cells % Cancelled 06/12/22 09:12 Nucleated RBC % Not Reportable 06/13/22 06:00 Neutrophils # (Manual) 0.8 10^3/uL (1.5-6.6) L 06/13/22 06:00 Lymphocytes # (Manual) 0.5 10^3/uL (1.5-3.5) L 06/13/22 06:00 Monocytes # (Manual) 0.2 10^3/uL (0.0-1.0) 06/13/22 06:00 Eosinophils # (Manual) 0.2 10^3/uL (0-0.7) 06/13/22 06:00 Basophils # (Manual) 0.0 10^3/uL (0-0.1) 06/13/22 06:00 Nucleated RBCs Cancelled 06/12/22 09:12 Differential Comment MANUAL DIFFERENTIAL 06/13/22 06:00 Manual Slide Review Cancelled 06/12/22 09:12 WBC Morphology NORMAL APPEARANCE (NORMAL) 06/13/22 06:00 Platelet Estimate DECREASED (<130,000) (NORMAL) 06/13/22 06:00 Platelet Morphology NORMAL APPEARANCE (NORMAL) 06/13/22 06:00 RBC Morph Micro Appear 1+ MICROCYTOSIS (NORMAL) 06/13/22 06:00 Sodium 133 mmol/L (135-145) L 06/13/22 06:00 Potassium 3.1 mmol/L (3.5-5.0) L 06/13/22 06:00 Chloride 97 mmol/L (101-111) L 06/13/22 06:00 Carbon Dioxide 27 mmol/L (21-32) 06/13/22 06:00 Anion Gap 9.0 (6-13) 06/13/22 06:00 BUN 26 mg/dL (6-20) H 06/13/22 06:00 Creatinine 0.9 mg/dL (0.6-1.2) 06/13/22 06:00 Estimated GFR (MDRD) 83 (>89) L 06/13/22 06:00 Glucose 237 mg/dL (70-100) H 06/13/22 06:00 POC Whole Bld Glucose 316 mg/dL (70 - 100) H 06/13/22 11:11 Calcium 7.7 mg/dL (8.5-10.3) L 06/13/22 06:00 Phosphorus 2.8 mg/dL (2.5-4.6) 06/13/22 06:00 Magnesium 1.4 mg/dL (1.7-2.8) L 06/13/22 06:00 Total Bilirubin 1.0 mg/dL (0.2-1.0) 06/13/22 06:00 AST < 10 IU/L (10-42) L 06/13/22 06:00 ALT < 10 IU/L (10-60) L 06/13/22 06:00 Alkaline Phosphatase 40 IU/L (42-121) L 06/13/22 06:00 Lactate Dehydrogenase 207 IU/L (91-225) 06/12/22 09:12 Total Protein 5.0 g/dL (6.7-8.2) L 06/13/22 06:00 Albumin 2.4 g/dL (3.2-5.5) L 06/13/22 06:00 Globulin 2.6 g/dL (2.1-4.2) 06/13/22 06:00 Albumin/Globulin Ratio 0.9 (1.0-2.2) L 06/13/22 06:00 Prealbumin 9 mg/dL (18-45) L 06/13/22 06:00 Triglycerides 151 mg/dL (-149) H 06/13/22 06:00 Stl C. diff Tox B Gene NEGATIVE (NEGATIVE) 06/11/22 17:49 Slides for Path Review Cancelled 06/12/22 09:12 - Procedures Procedures: Procedures TRANSFUSE NONAUT RED BLOOD CELLS IN PERIPH VEIN, PERC (08/19/21)
[2022-06-13] MEDS ORDERED: VANCOMYCIN 1 GM VIAL IV ONE ×2 (16:00→18:00)
[2022-06-13] MEDS ORDERED: VANCOMYCIN 1 GM VIAL IV SCH (16:00)
[2022-06-13] MEDS: POTASSIUM CHLOR 10 MEQ/100 ML 10 MEQ/100 ML BAG IV SCH ×4 (16:23→22:25)
[2022-06-13] MEDS: INSULIN LISPRO 300 UNIT/3 ML PEN SUBQ SCH ×2 (17:22→22:28)
[2022-06-13] MEDS ORDERED: VANCOMYCIN INJ 2 GM in SODIUM CHLORIDE 0.9% 500 ML IV ONE (18:00)
[2022-06-13] MEDS: PPN (CLINIMIX E 4.25/5) 2,000 ML with MULTIVITAMIN 10 ML, TRACE ELEMENTS 1 ML IV SCH ×3 (22:23)
[2022-06-13] MEDS: FAT EMULSION 20% 250 ML IV SCH (23:29)
[2022-06-14] MEDS: SODIUM CHLORIDE FLUSH 0.9% 10 ML SYRINGE IVP SCH ×3 (01:42→16:36)
[2022-06-14] MEDS: CEFEPIME 2 GM in SODIUM CHLORIDE 0.9% MINIBAG 100 ML IV SCH ×3 (04:06→21:17)
[2022-06-14] MEDS: DIPHENOX/ATROPINE 2.5/0.025 MG TABLET PO PRN ×4 (04:11→16:35)
[2022-06-14] MEDS: ONDANSETRON ODT 4 MG TABLET TL PRN ×2 (05:09→13:23)
[2022-06-14] MEDS: VANCOMYCIN INJ 1 GM, VANCOMYCIN INJ 500 MG in SODIUM CHLORIDE 0.9% 500 ML IV SCH ×2 (06:20→18:13)
[2022-06-14 06:22] LABS: BASOPHILS % (AUTO) 1.1 %; EOSINOPHILS % (AUTO) 7.4 %; LYMPHOCYTES % (AUTO) 21.3 %; MEAN CORPUSCULAR HEMOGLOBIN 28.7 pg (27.0-31.0); MEAN CORPUSCULAR HGB CONC 33.7 g/dL (32.0-36.0); MEAN CORPUSCULAR VOLUME 85.2 fL (80.0-94.0); MEAN PLATELET VOLUME 10.4 fL (7.4-11.4); MONOCYTES % (AUTO) 16.5 %; NEUTROPHILS % (AUTO) 48.9 %; RED BLOOD COUNT 2.09 10^6/uL (4.70-6.10); RED CELL DISTRIBUTION WIDTH 14.2 % (12.0-15.0)
[2022-06-14 06:24] LABS: HCT - HEMATOCRIT 17.8 % (42.0-52.0); PLT - PLATELET COUNT 3 10^3/uL (130-450); WHITE BLOOD COUNT 1.9 x10^3/uL (4.8-10.8)
[2022-06-14 06:37] LABS: ALBUMIN 2.2 g/dL (3.2-5.5); ALBUMIN/GLOBULIN RATIO 0.8 (1.0-2.2); ALKALINE PHOSPHATASE 37 IU/L (42-121); ALT ALANINE AMINOTRANSFERASE < 10 IU/L (10-60); AST ASPARTATE AMINOTRANSFERASE < 10 IU/L (10-42); BILIRUBIN,TOTAL 0.9 mg/dL (0.2-1.0); BUN - BLOOD UREA NITROGEN 23 mg/dL (6-20); CALCIUM 7.6 mg/dL (8.5-10.3); CARBON DIOXIDE - CO2 25 mmol/L (21-32); CHLORIDE 100 mmol/L (101-111); CREATININE 0.8 mg/dL (0.6-1.2); GFR - MDRD 95 (>89); GLUCOSE 269 mg/dL (70-100); MAGNESIUM 1.6 mg/dL (1.7-2.8); PHOSPHORUS 1.8 mg/dL (2.5-4.6); POTASSIUM 3.1 mmol/L (3.5-5.0); SODIUM 130 mmol/L (135-145); TOTAL PROTEIN 4.8 g/dL (6.7-8.2)
[2022-06-14 06:52] LABS: ABNORMAL LYMPHS % (MANUAL) 0 %
[2022-06-14 06:55] LABS: BAND NEUTROPHILS % (MANUAL) 2 %; BASOPHILS % (MANUAL) 2 %; EOSINOPHILS # (MANUAL) 0.2 10^3/uL (0-0.7); LYMPHOCYTES # (MANUAL) 0.7 10^3/uL (1.5-3.5); LYMPHOCYTES % (MANUAL) 39 %; METAMYELOCYTES % (MANUAL) 2 %; MONOCYTES # (MANUAL) 0.2 10^3/uL (0.0-1.0); MYELOCYTES % (MANUAL) 3 %; NEUTROPHILS # (MANUAL) 0.6 10^3/uL (1.5-6.6); RBC MORPHOLOGY (MULTIPLE) 1+ MICROCYTOSIS (NORMAL)
[2022-06-14 06:56] LABS: DIFFERENTIAL COMMENT MANUAL DIFFERENTIAL; PLATELET ESTIMATE, MANUAL DECREASED (<130,000) (NORMAL); PLATELET MORPHOLOGY NORMAL APPEARANCE (NORMAL); WBC MORPHOLOGY (MULTIPLE) NORMAL APPEARANCE (NORMAL)
[2022-06-14] MEDS ORDERED: ACETAMINOPHEN 325 MG TABLET PO ONE (08:13)
[2022-06-14] MEDS: INSULIN LISPRO 300 UNIT/3 ML PEN SUBQ SCH ×4 (08:19→21:24)
--- NOTE | 2022-06-14 08:20 | PROVIDER PROGRESS NOTE ---
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 This is very likely the cause of his neutropenic fevers. Plan: Continue empiric iv Cefepime Will add iv Vanco for poss TORIBIO Millan will be contacting his [facility] Oncologist, Dr. Cassandra Brunner who is covering for Dr. Ross in [facility], to discuss whether the port should be removed and another port implanted several days later. I discussed this with the patient, and his son, at bedside. (2) Pancytopenia Conclusion/Plan: Due to both chemotherapy (unknown type, that he is getting treatment from [facility]), as well as from the natural progression of his disease. He is neutropenic, anemic, and thrombocytopenic. Our [facility] clinic wanted him transfused using irradiated leukocyte reduced packed red cells. And they also want him infused w/ 2 units of irradiated platelets. Premedication is with Benadryl 50 mg IV push and Tylenol 650 mg. The patient tells me he would like to Benadryl pushed very slowly because he gets very "woozy" when he goes too fast. Plan: Another 1U PRBCs ordered to day for a Hgb of 6.2. (3) Myelodysplasia (myelodysplastic syndrome) Conclusion/Plan: Terminal illness. Patient has been told by oncology over the last couple of months that there is nothing more they can offer. Patient enrolled himself in a experimental protocol at [facility] and gets iv therapy (he does not know if he has the treatment med or the control). ACP was held with him at the last hospitalization, last week and he is DNR. Still wants blood transfusions. Would like to in the hospital. Daughter wants to take him home to her house. He is currently refusing her offer. He cannot go home to since his is experiencing her own life crisis w binge drinking right now and would not be able to take care of him. He refuses Hospice because he would have to stop blood transfusions so he can't get to [facility], or SNF w hospice, or [facility] w hospice. Daughter is Vijaya Pham [phone] and she is POA. If he gets confused enough or debilitated enough she will take him home to be with her. (4) Chronic diarrhea Conclusion/Plan: He seems to be describing clear watery diarrhea. There is not even any stool or food in it. We suspect malabsorption. There is no blood in it so I do not think he is sloughing or bleeding into his colon because of his thrombocytopenia. Checked for C. difficile and result was neg Checked for cultures of Salmonella, Shigella, Campylobacter, still pending Plan: IV hydration Lomotil, will increase frequency, since C. difficile negative Started PPN, and stopped NS Will advance his diet to solids, since this is not episodic diarrhea, but has been for many mos. and will stop PPN BMPdaily Qualifiers: Diarrhea type: unspecified type Qualified Code(s): R19.7 - Diarrhea, unspecified (5) Hx Hypertension Conclusion/Plan: BP was soft at 95/55. He was also tachycardic 115. Plan: We held off on giving him his usual home BP medications of telmisartan and hydrochlorothiazide. He got iv NS, changed to iv PPN Qualifiers: Hypertension type: primary hypertension Qualified Code(s): I10 - Essential (primary) hypertension (6) Type 2 diabetes mellitus, controlled Conclusion/Plan: He has not been not eating very much. Takes oral medication for DM when at home. Plan: Started PPN Started ss Insulin coverage for glu checks q6h. Since we will advance his diet, will change to glu checks ac and hs. 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 Plan: Will replace po and iv. Follow BMP daily (8) Hypomagnesemia Conclusion/Plan: From poor intake and losses in chronic diarrhea. Plan: Will replace po and iv. Follow Mg daily - Current Meds Current Meds: Current Medications Generic Name Dose Route Start Last Admin Trade Name Freq PRN Reason Stop Dose Admin Acetaminophen 650 mg 06/11/22 16:33 06/13/22 08:30 Acetaminophen 325 Mg Tablet PO 650 mg Q4HR PRN Administration Pain 1 to 4, or Fever Diphenhydramine HCl 25 mg 06/11/22 22:53 06/11/22 23:02 Diphenhydramine Inj 50 Mg/Ml Vial IVP 25 mg Q6H PRN Administration Allergy Symptoms Diphenoxylate HCl/Atropine 1 tab 06/12/22 10:28 06/14/22 04:11 Diphenox/Atropine 2.5/0.025 Mg Tablet PO 1 tab Q4H PRN Administration Diarrhea Cefepime HCl 2 gm/ Sodium 100 mls @ 200 mls/hr 06/12/22 02:00 06/14/22 06:21 Chloride IV Infused Q8H [facility] Infusion Multivitamins 10 ml/ TRACE 2,011 mls @ 83 mls/hr 06/12/22 19:00 06/13/22 22:23 ELEMENTS 1 ml/ Amino Acids/ IV 83 mls/hr Electrolytes/Dextrose 1900 [facility] Administration Protocol Fat Emulsion Intravenous 250 mls @ 21 mls/hr 06/12/22 19:00 06/13/22 23:29 Intralipid 20% IV 21 mls/hr 1900 [facility] Administration Vancomycin HCl 1 gm/ 500 mls @ 250 mls/hr 06/14/22 06:00 06/14/22 06:20 Vancomycin HCl 500 mg/ Sodium IV 250 mls/hr Chloride Q12H [facility] Administration Insulin Human Lispro 1 - 5 unit 06/13/22 17:00 06/13/22 22:28 Insulin Lispro 300 Unit/3 Ml Pen SUBQ 2 unit 0800,1200,1700,2100 [facility] Administration Protocol Ondansetron HCl 4 mg 06/11/22 16:33 06/14/22 05:09 Ondansetron Odt 4 Mg Tablet TL 4 mg Q6HR PRN Administration Nausea / Vomiting Sodium Chloride 10 ml 06/11/22 16:33 06/13/22 11:00 Sodium Chloride Flush 0.9% 10 Ml Syringe IVP 10 ml PRN PRN Administration NEEDED PER PROVIDER ORDERS Sodium Chloride 10 ml 06/11/22 17:00 06/14/22 01:42 Sodium Chloride Flush 0.9% 10 Ml Syringe IVP Not Given 0100,0900,1700 [facility] - Lab Result Fish Bone Diagrams: 06/19/22 04:45 06/19/22 04:45 - Additional Planning My Orders: My Active Orders 06/13/22 07:38 Transfuse RBCs Leukoreduced [RC] .ONCE 06/13/22 Dinner DIET [Soft (Low Fiber) Diet] [DIET] 06/13/22 16:28 Blood Glucose Checks - Eating [RC] 0800,1200,1700,2100 06/13/22 17:00 Insulin Lispro [Humalog Kwikpen U-100] 1 - 5 unit SUBQ 0800,1200,1700,2100 06/14/22 PLATELETPHERESIS LEUKO REDUCED Stat RBC, LEUKOREDUCED Stat TYPE AND SCREEN Stat 06/14/22 06:00 Vancomycin Inj [Vancomycin] 1 gm Vancomycin Inj [Vancomycin Hcl] 500 mg Sodium Chloride 0.9% [Normal Saline 0.9%] 500 ml IV Q12H 06/14/22 08:13 Transfuse Platelet Pheresis Pk [RC] .ONCE Transfuse RBCs Leukoreduced [RC] .ONCE 06/14/22 08:30 diphenhydrAMINE INJ [Benadryl Inj] 25 mg IVP ONCE ONE 06/15/22 05:00 CBC - COMP BLD CT W/AUTO DIFF [HEME] DAILYLAB COMPREHENSIVE METABOLIC PANEL [CHEM] DAILYLAB MAGNESIUM [CHEM] Routine PHOSPHORUS [CHEM] Routine PREALBUMIN [CHEM] Routine TRIGLYCERIDES [CHEM] Routine 06/16/22 05:00 CBC - COMP BLD CT W/AUTO DIFF [HEME] DAILYLAB COMPREHENSIVE METABOLIC PANEL [CHEM] DAILYLAB 06/17/22 05:00 COMPREHENSIVE METABOLIC PANEL [CHEM] Routine MAGNESIUM [CHEM] Routine PHOSPHORUS [CHEM] Routine PREALBUMIN [CHEM] Routine TRIGLYCERIDES [CHEM] Routine 06/20/22 05:00 COMPREHENSIVE METABOLIC PANEL [CHEM] Routine MAGNESIUM [CHEM] Routine PHOSPHORUS [CHEM] Routine PREALBUMIN [CHEM] Routine TRIGLYCERIDES [CHEM] Routine Subjective - Subjective Patient Reports: Resting Comfortably, Other (unchanged cough and watery diarrhea) Objective Vital Signs: Vital Signs - 24 hr 06/13/22 06/13/22 06/13/22 09:10 16:00 23:30 Temperature 36.8 C 36.5 C 36.7 C Heart Rate [ 79 79 85 Brachial] Respiratory 22 18 18 Rate Blood Pressure 121/56 L [Left Brachial artery] Blood Pressure 109/50 L 124/61 [Right Brachial artery] O2 Saturation 97 100 98 06/14/22 07:55 Temperature 36.4 C L Heart Rate [ 67 Brachial] Respiratory 18 Rate Blood Pressure [Left Brachial artery] Blood Pressure 114/61 [Right Brachial artery] O2 Saturation 97 Oxygen O2 Source CPAP I&O (Last 24 Hrs): Intake and Output Totals x24h 06/12/22 06/13/22 06/14/22 23:59 23:59 23:59 Intake Total 2584.733 3806.317 200 Balance 2584.733 3806.317 200 General: Alert, Oriented x3 HEENT: EOMI, Mucous membr. moist/pink Neck: Supple, No JVD Neuro: Alert, Non Focal Cardiovascular: No murmurs Respiratory: No respiratory distress, Breath sounds nml Abdomen: Soft, No tenderness Extremities: No clubbing, Other (1+ edema of ankles) Skin: No breakdown (Pale, has many bruises of arms (from infiltrated iv sites)) - Results Results: Laboratory Results WBC 1.9 x10^3/uL (4.8-10.8) L* 06/14/22 06:13 Corrected WBC Cancelled 06/12/22 09:12 RBC 2.09 10^6/uL (4.70-6.10) L 06/14/22 06:13 Hgb 6.0 g/dL (14.0-18.0) L* 06/14/22 06:13 Hct 17.8 % (42.0-52.0) L* 06/14/22 06:13 MCV 85.2 fL (80.0-94.0) 06/14/22 06:13 MCH 28.7 pg (27.0-31.0) 06/14/22 06:13 MCHC 33.7 g/dL (32.0-36.0) 06/14/22 06:13 RDW 14.2 % (12.0-15.0) 06/14/22 06:13 Plt Count 3 10^3/uL (130-450) L* 06/14/22 06:13 MPV 10.4 fL (7.4-11.4) 06/14/22 06:13 Neut # (Auto) Not Reportable 06/14/22 06:13 Lymph # (Auto) Not Reportable 06/14/22 06:13 [place] # (Auto) Not Reportable 06/14/22 06:13 Eos # (Auto) Not Reportable 06/14/22 06:13 Baso # (Auto) Not Reportable 06/14/22 06:13 Absolute Nucleated RBC Not Reportable 06/14/22 06:13 Total Counted 100 06/14/22 06:13 Band Neuts % (Manual) 2 % (0-10) 06/14/22 06:13 Reactive Lymphs % (Man) Cancelled 06/12/22 09:12 Abnorm Lymph % (Manual) 0 % 06/14/22 06:13 Metamyelocytes % 2 % (-0) H 06/14/22 06:13 Myelocytes % 3 % (-0) H 06/14/22 06:13 Promyelocytes % Cancelled 06/12/22 09:12 Blast Cells % 2 % H* 06/13/22 06:00 Plasma Cell % (Manual) Cancelled 06/12/22 09:12 Other Cells % Cancelled 06/12/22 09:12 Nucleated RBC % Not Reportable 06/14/22 06:13 Neutrophils # (Manual) 0.6 10^3/uL (1.5-6.6) L 06/14/22 06:13 Lymphocytes # (Manual) 0.7 10^3/uL (1.5-3.5) L 06/14/22 06:13 Monocytes # (Manual) 0.2 10^3/uL (0.0-1.0) 06/14/22 06:13 Eosinophils # (Manual) 0.2 10^3/uL (0-0.7) 06/14/22 06:13 Basophils # (Manual) 0.0 10^3/uL (0-0.1) 06/14/22 06:13 Nucleated RBCs Cancelled 06/12/22 09:12 Differential Comment MANUAL DIFFERENTIAL 06/14/22 06:13 Manual Slide Review Cancelled 06/12/22 09:12 WBC Morphology NORMAL APPEARANCE (NORMAL) 06/14/22 06:13 Platelet Estimate DECREASED (<130,000) (NORMAL) 06/14/22 06:13 Platelet Morphology NORMAL APPEARANCE (NORMAL) 06/14/22 06:13 RBC Morph Micro Appear 1+ MICROCYTOSIS (NORMAL) 06/14/22 06:13 Sodium 130 mmol/L (135-145) L 06/14/22 06:13 Potassium 3.1 mmol/L (3.5-5.0) L 06/14/22 06:13 Chloride 100 mmol/L (101-111) L 06/14/22 06:13 Carbon Dioxide 25 mmol/L (21-32) 06/14/22 06:13 Anion Gap 5.0 (6-13) L 06/14/22 06:13 BUN 23 mg/dL (6-20) H 06/14/22 06:13 Creatinine 0.8 mg/dL (0.6-1.2) 06/14/22 06:13 Estimated GFR (MDRD) 95 (>89) 06/14/22 06:13 Glucose 269 mg/dL (70-100) H 06/14/22 06:13 POC Whole Bld Glucose 211 mg/dL (70 - 100) H 06/13/22 20:54 Calcium 7.6 mg/dL (8.5-10.3) L 06/14/22 06:13 Phosphorus 1.8 mg/dL (2.5-4.6) L 06/14/22 06:13 Magnesium 1.6 mg/dL (1.7-2.8) L 06/14/22 06:13 Total Bilirubin 0.9 mg/dL (0.2-1.0) 06/14/22 06:13 AST < 10 IU/L (10-42) L 06/14/22 06:13 ALT < 10 IU/L (10-60) L 06/14/22 06:13 Alkaline Phosphatase 37 IU/L (42-121) L 06/14/22 06:13 Lactate Dehydrogenase 207 IU/L (91-225) 06/12/22 09:12 Total Protein 4.8 g/dL (6.7-8.2) L 06/14/22 06:13 Albumin 2.2 g/dL (3.2-5.5) L 06/14/22 06:13 Globulin 2.6 g/dL (2.1-4.2) 06/14/22 06:13 Albumin/Globulin Ratio 0.8 (1.0-2.2) L 06/14/22 06:13 Prealbumin 9 mg/dL (18-45) L 06/13/22 06:00 Triglycerides 151 mg/dL (-149) H 06/13/22 06:00 Stl C. diff Tox B Gene NEGATIVE (NEGATIVE) 06/11/22 17:49 Slides for Path Review Cancelled 06/12/22 09:12 - Procedures Procedures: Procedures TRANSFUSE NONAUT RED BLOOD CELLS IN PERIPH VEIN, PERC (08/19/21)
[2022-06-14] MEDS ORDERED: diphenhydrAMINE INJ 50 MG/ML VIAL IVP ONE (08:30)
[2022-06-14] MEDS: INSULIN GLARGINE-YFGN 300 UNIT/3 ML PEN SUBQ SCH ×2 (11:59→21:23)
--- NOTE | 2022-06-14 16:23 | CONSULTATION NOTE ---
Consultation Report: Consulted for PIV access r/t patient getting various IVFs, blood. Existing L chest port with probable infection. Current 22ga IV at R wrist is infusing with mild discomfort but patent. Introduced myself to the patient, explained why I had been asked to see him, and explained what is involved in a PIV with US. L arm with bruising throughout, R arm with spots of bruising. Pt did allow me to scan his R arm in an attempt to show how the US is different from any other method previously used. Despite explaining the benefits of a new IV in new location, patient pleasantly yet adamantly refused new IV placement. RN and MD notified.
--- NOTE | 2022-06-14 16:40 | PROVIDER PROGRESS NOTE ---
Assessment/Plan - Current Meds Current Meds: Current Medications Generic Name Dose Route Start Last Admin Trade Name Freq PRN Reason Stop Dose Admin Acetaminophen 650 mg 06/11/22 16:33 06/13/22 08:30 Acetaminophen 325 Mg Tablet PO 650 mg Q4HR PRN Administration Pain 1 to 4, or Fever Diphenhydramine HCl 25 mg 06/11/22 22:53 06/11/22 23:02 Diphenhydramine Inj 50 Mg/Ml Vial IVP 25 mg Q6H PRN Administration Allergy Symptoms Diphenoxylate HCl/Atropine 1 tab 06/12/22 10:28 06/14/22 16:35 Diphenox/Atropine 2.5/0.025 Mg Tablet PO 1 tab Q4H PRN Administration Diarrhea Multivitamins 10 ml/ TRACE 2,011 mls @ 83 mls/hr 06/12/22 19:00 06/13/22 22:23 ELEMENTS 1 ml/ Amino Acids/ IV 06/14/22 18:59 83 mls/hr Electrolytes/Dextrose 1900 [facility] Administration Protocol Fat Emulsion Intravenous 250 mls @ 21 mls/hr 06/12/22 19:00 06/13/22 23:29 Intralipid 20% IV 06/14/22 18:59 21 mls/hr 1900 ANUSHA Administration Vancomycin HCl 1 gm/ 500 mls @ 250 mls/hr 06/14/22 06:00 06/14/22 08:20 Vancomycin HCl 500 mg/ Sodium IV Infused Chloride Q12H ANUSHA Infusion Cefepime HCl 2 gm/ Sodium 100 mls @ 200 mls/hr 06/14/22 12:00 06/14/22 12:25 Chloride IV Infused Q8H ANUSHA Infusion Insulin Glargine-yfgn 5 unit 06/14/22 10:54 06/14/22 11:59 Insulin Glargine-Yfgn 300 Unit/3 Ml Pen SUBQ 5 unit BID ANUSHA Administration Insulin Human Lispro 1 - 5 unit 06/13/22 17:00 06/14/22 11:58 Insulin Lispro 300 Unit/3 Ml Pen SUBQ 3 unit 0800,1200,1700,2100 ANUSHA Administration Protocol Ondansetron HCl 4 mg 06/11/22 16:33 06/14/22 13:23 Ondansetron Odt 4 Mg Tablet TL 4 mg Q6HR PRN Administration Nausea / Vomiting Sodium Chloride 10 ml 06/11/22 16:33 06/13/22 11:00 Sodium Chloride Flush 0.9% 10 Ml Syringe IVP 10 ml PRN PRN Administration NEEDED PER PROVIDER ORDERS Sodium Chloride 10 ml 06/11/22 17:00 06/14/22 16:36 Sodium Chloride Flush 0.9% 10 Ml Syringe IVP 10 ml 0100,0900,1700 ANUSHA Administration - Lab Result Fish Bone Diagrams: 06/14/22 06:13 06/14/22 06:13 - Additional Planning My Orders: My Active Orders 06/13/22 Dinner DIET [Soft (Low Fiber) Diet] [DIET] 06/13/22 16:28 Blood Glucose Checks - Eating [RC] 0800,1200,1700,2100 06/13/22 17:00 Insulin Lispro [Humalog Kwikpen U-100] 1 - 5 unit SUBQ 0800,1200,1700,2100 06/14/22 06:00 Vancomycin Inj [Vancomycin] 1 gm Vancomycin Inj [Vancomycin Hcl] 500 mg Sodium Chloride 0.9% [Normal Saline 0.9%] 500 ml IV Q12H 06/14/22 08:13 Transfuse Platelet Pheresis Pk [RC] .ONCE Transfuse RBCs Leukoreduced [RC] .ONCE 06/14/22 10:54 Insulin Glargine-Yfgn [Semglee] 5 unit SUBQ BID 06/14/22 16:39 Miscellaenous Nursing Order [RC] QSHIFT 06/14/22 17:00 glipiZIDE [Glucotrol] 5 mg PO BIDWM 06/15/22 05:00 CBC - COMP BLD CT W/AUTO DIFF [HEME] DAILYLAB COMPREHENSIVE METABOLIC PANEL [CHEM] DAILYLAB MAGNESIUM [CHEM] Routine PHOSPHORUS [CHEM] Routine PREALBUMIN [CHEM] Routine TRIGLYCERIDES [CHEM] Routine 06/16/22 05:00 CBC - COMP BLD CT W/AUTO DIFF [HEME] DAILYLAB COMPREHENSIVE METABOLIC PANEL [CHEM] DAILYLAB 06/17/22 05:00 COMPREHENSIVE METABOLIC PANEL [CHEM] Routine MAGNESIUM [CHEM] Routine PHOSPHORUS [CHEM] Routine PREALBUMIN [CHEM] Routine TRIGLYCERIDES [CHEM] Routine 06/20/22 05:00 COMPREHENSIVE METABOLIC PANEL [CHEM] Routine MAGNESIUM [CHEM] Routine PHOSPHORUS [CHEM] Routine PREALBUMIN [CHEM] Routine TRIGLYCERIDES [CHEM] Routine Objective Vital Signs: Vital Signs - 24 hr 06/13/22 06/14/22 23:30 07:55 Temperature 36.7 C 36.4 C L Heart Rate [ 85 67 Brachial] Respiratory 18 18 Rate Blood Pressure 124/61 114/61 [Right Brachial artery] O2 Saturation 98 97 Oxygen O2 Source CPAP I&O (Last 24 Hrs): Intake and Output Totals x24h 06/12/22 06/13/22 06/14/22 23:59 23:59 23:59 Intake Total 2584.733 3806.317 2280 Balance 2584.733 3806.317 2280 - Results Results: Laboratory Results WBC 1.9 x10^3/uL (4.8-10.8) L* 06/14/22 06:13 Corrected WBC Cancelled 06/12/22 09:12 RBC 2.09 10^6/uL (4.70-6.10) L 06/14/22 06:13 Hgb 6.0 g/dL (14.0-18.0) L* 06/14/22 06:13 Hct 17.8 % (42.0-52.0) L* 06/14/22 06:13 MCV 85.2 fL (80.0-94.0) 06/14/22 06:13 MCH 28.7 pg (27.0-31.0) 06/14/22 06:13 MCHC 33.7 g/dL (32.0-36.0) 06/14/22 06:13 RDW 14.2 % (12.0-15.0) 06/14/22 06:13 Plt Count 3 10^3/uL (130-450) L* 06/14/22 06:13 MPV 10.4 fL (7.4-11.4) 06/14/22 06:13 Neut # (Auto) Not Reportable 06/14/22 06:13 Lymph # (Auto) Not Reportable 06/14/22 06:13 [place] # (Auto) Not Reportable 06/14/22 06:13 Eos # (Auto) Not Reportable 06/14/22 06:13 Baso # (Auto) Not Reportable 06/14/22 06:13 Absolute Nucleated RBC Not Reportable 06/14/22 06:13 Total Counted 100 06/14/22 06:13 Band Neuts % (Manual) 2 % (0-10) 06/14/22 06:13 Reactive Lymphs % (Man) Cancelled 06/12/22 09:12 Abnorm Lymph % (Manual) 0 % 06/14/22 06:13 Metamyelocytes % 2 % (-0) H 06/14/22 06:13 Myelocytes % 3 % (-0) H 06/14/22 06:13 Promyelocytes % Cancelled 06/12/22 09:12 Blast Cells % 2 % H* 06/13/22 06:00 Plasma Cell % (Manual) Cancelled 06/12/22 09:12 Other Cells % Cancelled 06/12/22 09:12 Nucleated RBC % Not Reportable 06/14/22 06:13 Neutrophils # (Manual) 0.6 10^3/uL (1.5-6.6) L 06/14/22 06:13 Lymphocytes # (Manual) 0.7 10^3/uL (1.5-3.5) L 06/14/22 06:13 Monocytes # (Manual) 0.2 10^3/uL (0.0-1.0) 06/14/22 06:13 Eosinophils # (Manual) 0.2 10^3/uL (0-0.7) 06/14/22 06:13 Basophils # (Manual) 0.0 10^3/uL (0-0.1) 06/14/22 06:13 Nucleated RBCs Cancelled 06/12/22 09:12 Differential Comment MANUAL DIFFERENTIAL 06/14/22 06:13 Manual Slide Review Cancelled 06/12/22 09:12 WBC Morphology NORMAL APPEARANCE (NORMAL) 06/14/22 06:13 Platelet Estimate DECREASED (<130,000) (NORMAL) 06/14/22 06:13 Platelet Morphology NORMAL APPEARANCE (NORMAL) 06/14/22 06:13 RBC Morph Micro Appear 1+ MICROCYTOSIS (NORMAL) 06/14/22 06:13 Sodium 130 mmol/L (135-145) L 06/14/22 06:13 Potassium 3.1 mmol/L (3.5-5.0) L 06/14/22 06:13 Chloride 100 mmol/L (101-111) L 06/14/22 06:13 Carbon Dioxide 25 mmol/L (21-32) 06/14/22 06:13 Anion Gap 5.0 (6-13) L 06/14/22 06:13 BUN 23 mg/dL (6-20) H 06/14/22 06:13 Creatinine 0.8 mg/dL (0.6-1.2) 06/14/22 06:13 Estimated GFR (MDRD) 95 (>89) 06/14/22 06:13 Glucose 269 mg/dL (70-100) H 06/14/22 06:13 POC Whole Bld Glucose 211 mg/dL (70 - 100) H 06/13/22 20:54 Calcium 7.6 mg/dL (8.5-10.3) L 06/14/22 06:13 Phosphorus 1.8 mg/dL (2.5-4.6) L 06/14/22 06:13 Magnesium 1.6 mg/dL (1.7-2.8) L 06/14/22 06:13 Total Bilirubin 0.9 mg/dL (0.2-1.0) 06/14/22 06:13 AST < 10 IU/L (10-42) L 06/14/22 06:13 ALT < 10 IU/L (10-60) L 06/14/22 06:13 Alkaline Phosphatase 37 IU/L (42-121) L 06/14/22 06:13 Lactate Dehydrogenase 207 IU/L (91-225) 06/12/22 09:12 Total Protein 4.8 g/dL (6.7-8.2) L 06/14/22 06:13 Albumin 2.2 g/dL (3.2-5.5) L 06/14/22 06:13 Globulin 2.6 g/dL (2.1-4.2) 06/14/22 06:13 Albumin/Globulin Ratio 0.8 (1.0-2.2) L 06/14/22 06:13 Prealbumin 9 mg/dL (18-45) L 06/13/22 06:00 Triglycerides 151 mg/dL (-149) H 06/13/22 06:00 Stl C. diff Tox B Gene NEGATIVE (NEGATIVE) 06/11/22 17:49 Slides for Path Review Cancelled 06/12/22 09:12 - Procedures Procedures: Procedures TRANSFUSE NONAUT RED BLOOD CELLS IN PERIPH VEIN, PERC (08/19/21)
[2022-06-14] MEDS: glipiZIDE 5 MG TABLET PO SCH (17:55)
[2022-06-14] MEDS: SODIUM CHLORIDE FLUSH 0.9% 10 ML SYRINGE IVP PRN ×2 (18:14→22:50)
[2022-06-14] MEDS: diphenhydrAMINE INJ 50 MG/ML VIAL IVP PRN (18:54)
[2022-06-14] MEDS: ACETAMINOPHEN 325 MG TABLET PO PRN (18:54)
[2022-06-14] MEDS ORDERED: INSULIN LISPRO 300 UNIT/3 ML PEN SUBQ SCH (21:00)
[2022-06-15] MEDS: CEFEPIME 2 GM in SODIUM CHLORIDE 0.9% MINIBAG 100 ML IV SCH ×3 (03:00→19:10)
[2022-06-15] MEDS: DIPHENOX/ATROPINE 2.5/0.025 MG TABLET PO PRN ×3 (03:00→17:27)
[2022-06-15] MEDS: SODIUM CHLORIDE FLUSH 0.9% 10 ML SYRINGE IVP SCH ×3 (03:00→17:27)
[2022-06-15] MEDS ORDERED: VANCOMYCIN 1 GM VIAL ONE (06:06)
[2022-06-15] MEDS ORDERED: SODIUM CHLORIDE 0.9% 0 ML IV ONE (06:06)
[2022-06-15] MEDS: VANCOMYCIN INJ 1 GM, VANCOMYCIN INJ 500 MG in SODIUM CHLORIDE 0.9% 500 ML IV SCH ×2 (06:13→17:50)
[2022-06-15 06:41] LABS: BASOPHILS % (AUTO) 0.6 %; EOSINOPHILS % (AUTO) 6.9 %; HCT - HEMATOCRIT 20.1 % (42.0-52.0); LYMPHOCYTES % (AUTO) 22.5 %; MEAN CORPUSCULAR HEMOGLOBIN 29.4 pg (27.0-31.0); MEAN CORPUSCULAR HGB CONC 34.8 g/dL (32.0-36.0); MEAN CORPUSCULAR VOLUME 84.5 fL (80.0-94.0); MEAN PLATELET VOLUME 10.3 fL (7.4-11.4); MONOCYTES % (AUTO) 13.8 %; NEUTROPHILS % (AUTO) 28.4 %; RED BLOOD COUNT 2.38 10^6/uL (4.70-6.10); RED CELL DISTRIBUTION WIDTH 13.9 % (12.0-15.0); WHITE BLOOD COUNT 3.2 x10^3/uL (4.8-10.8)
[2022-06-15 06:55] LABS: PLT - PLATELET COUNT 9 10^3/uL (130-450)
[2022-06-15 06:57] LABS: ABNORMAL LYMPHS % (MANUAL) 0 %
[2022-06-15 07:07] LABS: ALBUMIN 2.3 g/dL (3.2-5.5); ALBUMIN/GLOBULIN RATIO 0.8 (1.0-2.2); ALKALINE PHOSPHATASE 45 IU/L (42-121); ALT ALANINE AMINOTRANSFERASE < 10 IU/L (10-60); AST ASPARTATE AMINOTRANSFERASE < 10 IU/L (10-42); BILIRUBIN,TOTAL 1.4 mg/dL (0.2-1.0); BUN - BLOOD UREA NITROGEN 19 mg/dL (6-20); CALCIUM 7.9 mg/dL (8.5-10.3); CARBON DIOXIDE - CO2 25 mmol/L (21-32); CHLORIDE 101 mmol/L (101-111); CREATININE 0.9 mg/dL (0.6-1.2); GFR - MDRD 83 (>89); GLUCOSE 137 mg/dL (70-100); MAGNESIUM 1.4 mg/dL (1.7-2.8); PHOSPHORUS 2.3 mg/dL (2.5-4.6); POTASSIUM 3.1 mmol/L (3.5-5.0); PREALBUMIN 8 mg/dL (18-45); SODIUM 135 mmol/L (135-145); TOTAL PROTEIN 5.1 g/dL (6.7-8.2); TRIGLYCERIDES 129 mg/dL
[2022-06-15 07:16] LABS: BAND NEUTROPHILS % (MANUAL) 3 %; BASOPHILS # (MANUAL) 0.1 10^3/uL (0-0.1); BASOPHILS % (MANUAL) 4 %; DIFFERENTIAL COMMENT MANUAL DIFFERENTIAL; EOSINOPHILS # (MANUAL) 0.1 10^3/uL (0-0.7); LYMPHOCYTES # (MANUAL) 1.2 10^3/uL (1.5-3.5); LYMPHOCYTES % (MANUAL) 36 %; METAMYELOCYTES % (MANUAL) 4 %; MONOCYTES # (MANUAL) 0.2 10^3/uL (0.0-1.0); MYELOCYTES % (MANUAL) 6 %; NEUTROPHILS # (MANUAL) 1.2 10^3/uL (1.5-6.6); PLATELET ESTIMATE, MANUAL DECREASED (<130,000) (NORMAL); REACTIVE LYMPHS % (MANUAL) 3 %
[2022-06-15] MEDS: INSULIN LISPRO 300 UNIT/3 ML PEN SUBQ SCH ×4 (07:27→22:06)
[2022-06-15] MEDS: glipiZIDE 5 MG TABLET PO SCH ×2 (09:15→17:26)
[2022-06-15] MEDS: INSULIN GLARGINE-YFGN 300 UNIT/3 ML PEN SUBQ SCH ×2 (09:15→22:06)
[2022-06-15] MEDS ORDERED: MAGNESIUM SULFATE 2 GRAM 2 GM/50 ML BAG IV ONE (10:38)
[2022-06-15] MEDS ORDERED: POTASSIUM PHOSPHATE 21 MMOL in SODIUM CHLORIDE 0.9% 250 ML IV ONE (12:00)
[2022-06-15] MEDS ORDERED: SODIUM CHLORIDE 0.9% 250 ML IV ONE (12:35)
[2022-06-15] MEDS: MAGNESIUM OXIDE 400 MG TABLET PO SCH (12:41)
[2022-06-15] MEDS: CALCIUM CARBONATE CHEW 500 MG TABLET PO SCH (17:26)
[2022-06-15 18:11] LABS: VANCOMYCIN,TROUGH 22.2 ug/mL (10.0-20.0)
--- NOTE | 2022-06-15 19:01 | PROVIDER PROGRESS NOTE ---
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 This is very likely the cause of his neutropenic fevers. Plan: Continue empiric iv Cefepime due to sever neutropenia We added iv Vanco for poss TORIBIO I contacted his [facility] Oncologist, Dr. Cassandra Brunner on 06/14, to discuss whether the port should be removed and another port implanted several days later, and she advised that the port does not need to be removed unless there is clinical appearance that it is infected (red, swollen), which it is not. Today I spoke to infectious disease at . Dr. Eldridge advised that he get a 10-day course of treatment, starting from the day that he improved. Advised rechecking blood cultures to assure they are negative now, which they probably are since he is clinically improving. He advised stopping antibiotics after 10 days, waiting 2 days, then getting blood cultures from port and periphery on day 3. If those turn positive then the port is infected and the port would need to come out. This would be done at a hospital with higher level of care. I told the patient these recommendations and plan and he agrees. The patient asked me to call his daughter Vijaya and I did call her at [phone]. She is also agreeable with the plan. (2) Pancytopenia Conclusion/Plan: Due to both chemotherapy (unknown type, that he is getting treatment from [facility]), as well as from the natural progression of his disease. He is neutropenic, an emic, and thrombocytopenic. Our [facility] clinic wanted him transfused using irradiated leukocyte reduced packed red cells. And they also want him infused w/ 2 units of irradiated platelets. Premedication is with Benadryl 50 mg IV push and Tylenol 650 mg. The patient tells me he would like to Benadryl pushed very slowly because he gets very "woozy" when he goes too fast. The [facility] clnic notes were reviewed and sytate to transfuse PRBCs if Hgb <7 and with plts if plt count <5. The patient asked me to call his daughter Vijaya and I did call her at [phone]. She reported that the pt has been very resistant to thinking about Hospice or end of life, but is willing to speak to Palliative Care. Will order a Palliative Care consult. The daughter would like to be here for that meeting, and she cannot come here from [place], [place] until 06/19. Plan: Transfuse when Hgb <7 and when plts < 10, with premedication Will arrange for that Palliative Care consult for 06/19 (3) Myelodysplasia (myelodysplastic syndrome) Conclusion/Plan: Terminal illness. Patient has been told by oncology over the last couple of months that there is nothing more they can offer. Patient enrolled himself in a experimental protocol at [facility] and gets iv therapy (he does not know if he has the treatment med or the control). ACP was held with him at the last hospitalization, last week and he is DNR. Still wants blood transfusions. Would like to in the hospital. Daughter wants to take him home to her house. He is currently refusing her offer. He cannot go home to since his is experiencing her own life crisis w binge drinking right now and would not be able to take care of him. He refuses Hospice because he would have to stop blood transfusions so he can't get to [facility], or [facility] w hospice, or [facility]/alf w hospice. Daughter is Vijaya Pham [phone] and she is POA. If he gets confused enough or debilitated enough she will take him home to be with her. (4) Chronic diarrhea Conclusion/Plan: He seems to be describing clear watery diarrhea. There is not even any stool or food in it. We suspect malabsorption. There is no blood in it so I do not think he is sloughing or bleeding into his colon because of his thrombocytopenia. Checked for C. difficile and result was neg Checked for cultures of Salmonella, Shigella, Campylobacter, still pending Plan: IV hydration Lomotil, will increase frequency, since C. difficile negative Started PPN for 2 days then we learned the diarrhea was not new We advanced his diet to solids, since this is not episodic diarrhea, but has been for many mos. BMPdaily Qualifiers: Diarrhea type: unspecified type Qualified Code(s): R19.7 - Diarrhea, unspecified (5) Hx Hypertension Conclusion/Plan: BP was soft at 95/55. He was also tachycardic 115. Plan: We held off on giving him his usual home BP medications of telmisartan and hydrochlorothiazide. He got iv NS, changed to iv PPN, now off both Qualifiers: Hypertension type: primary hypertension Qualified Code(s): I10 - Essential (primary) hypertension (6) Type 2 diabetes mellitus, controlled Conclusion/Plan: He was not eating very much. Takes oral medication for DM when at home. Plan: Started PPN Started ss Insulin coverage for glu checks q6h. Since we have advanced his diet, will change to glu checks ac and hs. 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 Plan: Will replace po and iv. Follow BMP daily (8) Hypomagnesemia Conclusion/Plan: From poor intake and losses in chronic diarrhea. Plan: Will replace po and iv. Follow Mg daily - Current Meds Current Meds: Current Medications Generic Name Dose Route Start Last Admin Trade Name Freq PRN Reason Stop Dose Admin Acetaminophen 650 mg 06/11/22 16:33 06/14/22 18:54 Acetaminophen 325 Mg Tablet PO 650 mg Q4HR PRN Administration Pain 1 to 4, or Fever Calcium Carbonate/Glycine 500 mg 06/15/22 17:00 06/15/22 17:26 Calcium Carbonate Chew 500 Mg Tablet PO 500 mg 0900,1700 ANUSHA Administration Diphenhydramine HCl 25 mg 06/11/22 22:53 06/14/22 18:54 Diphenhydramine Inj 50 Mg/Ml Vial IVP 25 mg Q6H PRN Administration Allergy Symptoms Diphenoxylate HCl/Atropine 1 tab 06/12/22 10:28 06/15/22 17:27 Diphenox/Atropine 2.5/0.025 Mg Tablet PO 1 tab Q4H PRN Administration Diarrhea Glipizide 5 mg 06/14/22 17:00 06/15/22 17:26 Glipizide 5 Mg Tablet PO 5 mg BIDWM ANUSHA Administration Cefepime HCl 2 gm/ Sodium 100 mls @ 200 mls/hr 06/14/22 12:00 06/15/22 13:13 Chloride IV Infused Q8H ANUSHA Infusion Insulin Glargine-yfgn 5 unit 06/14/22 10:54 06/15/22 09:15 Insulin Glargine-Yfgn 300 Unit/3 Ml Pen SUBQ 5 unit BID ANUSHA Administration Insulin Human Lispro 1 - 9 unit 06/14/22 21:00 06/15/22 17:26 Insulin Lispro 300 Unit/3 Ml Pen SUBQ 1 unit 0800,1200,1700,2100 [facility] Administration Protocol Magnesium Oxide 400 mg 06/15/22 12:00 06/15/22 12:41 Magnesium Oxide 400 Mg Tablet PO 400 mg 1200 ANUSHA Administration Ondansetron HCl 4 mg 06/11/22 16:33 06/14/22 13:23 Ondansetron Odt 4 Mg Tablet TL 4 mg Q6HR PRN Administration Nausea / Vomiting Ondansetron HCl 4 mg 06/11/22 16:33 06/14/22 22:50 Ondansetron 4 Mg/2 Ml Vial IVP 4 mg Q6HR PRN Administration Nausea / Vomiting Sodium Chloride 10 ml 06/11/22 16:33 06/14/22 22:50 Sodium Chloride Flush 0.9% 10 Ml Syringe IVP 10 ml PRN PRN Administration NEEDED PER PROVIDER ORDERS Sodium Chloride 10 ml 06/11/22 17:00 06/15/22 17:27 Sodium Chloride Flush 0.9% 10 Ml Syringe IVP 10 ml 0100,0900,1700 [facility] Administration - Lab Result Fish Bone Diagrams: 06/19/22 04:45 06/19/22 04:45 - Additional Planning My Orders: My Active Orders 06/14/22 21:00 Insulin Lispro [Humalog Kwikpen U-100] 1 - 9 unit SUBQ 0800,1200,1700,2100 06/15/22 12:00 Magnesium Oxide [Mag Ox] 400 mg PO 1200 06/15/22 17:00 Calcium Carbonate [Tums] 500 mg PO 0900,1700 06/15/22 20:00 Vancomycin Inj [Vancomycin] 1 gm Vancomycin Inj [Vancomycin Hcl] 250 mg Sodium Chloride 0.9% [Normal Saline 0.9%] 250 ml IV Q12H 06/16/22 05:00 CBC - COMP BLD CT W/AUTO DIFF [HEME] DAILYLAB COMPREHENSIVE METABOLIC PANEL [CHEM] DAILYLAB 06/17/22 05:00 COMPREHENSIVE METABOLIC PANEL [CHEM] Routine MAGNESIUM [CHEM] Routine PHOSPHORUS [CHEM] Routine PREALBUMIN [CHEM] Routine TRIGLYCERIDES [CHEM] Routine 06/20/22 05:00 COMPREHENSIVE METABOLIC PANEL [CHEM] Routine MAGNESIUM [CHEM] Routine PHOSPHORUS [CHEM] Routine PREALBUMIN [CHEM] Routine TRIGLYCERIDES [CHEM] Routine Subjective - Subjective Patient Reports: Resting Comfortably, Other (same diarrhea (as for mos), not painful, no blood) Objective Vital Signs: Vital Signs - 24 hr 06/14/22 06/15/22 06/15/22 19:00 00:00 07:22 Temperature 37.1 C 37 C 36.7 C Heart Rate [ 78 83 88 Brachial] Respiratory 21 16 18 Rate Blood Pressure 108/49 L 122/54 L 111/51 L [Right Brachial artery] O2 Saturation 98 95 96 06/15/22 16:00 Temperature 36.9 C Heart Rate [ 79 Brachial] Respiratory 18 Rate Blood Pressure 119/61 [Right Brachial artery] O2 Saturation 97 Oxygen O2 Source Room air I&O (Last 24 Hrs): Intake and Output Totals x24h 06/13/22 06/14/22 06/15/22 23:59 23:59 23:59 Intake Total 3806.317 5091 2185.833 Output Total 675 Balance 3806.317 5091 1510.833 General: Alert, Oriented x3, Other (Pale) HEENT: EOMI, Mucous membr. moist/pink Neck: Supple, No JVD Neuro: Alert, Non Focal Cardiovascular: Regular rate, No murmurs Respiratory: No respiratory distress, Breath sounds nml Abdomen: Soft, No tenderness Extremities: No clubbing, Other (1+ ankle edema, many bruises of arms) - Results Results: Laboratory Results WBC 3.2 x10^3/uL (4.8-10.8) L 06/15/22 06:35 Corrected WBC Cancelled 06/12/22 09:12 RBC 2.38 10^6/uL (4.70-6.10) L 06/15/22 06:35 Hgb 7.0 g/dL (14.0-18.0) L* 06/15/22 06:35 Hct 20.1 % (42.0-52.0) L 06/15/22 06:35 MCV 84.5 fL (80.0-94.0) 06/15/22 06:35 MCH 29.4 pg (27.0-31.0) 06/15/22 06:35 MCHC 34.8 g/dL (32.0-36.0) 06/15/22 06:35 RDW 13.9 % (12.0-15.0) 06/15/22 06:35 Plt Count 9 10^3/uL (130-450) L* 06/15/22 06:35 MPV 10.3 fL (7.4-11.4) 06/15/22 06:35 Neut # (Auto) Not Reportable 06/15/22 06:35 Lymph # (Auto) Not Reportable 06/15/22 06:35 [place] # (Auto) Not Reportable 06/15/22 06:35 Eos # (Auto) Not Reportable 06/15/22 06:35 Baso # (Auto) Not Reportable 06/15/22 06:35 Absolute Nucleated RBC Not Reportable 06/15/22 06:35 Total Counted 100 06/15/22 06:35 Band Neuts % (Manual) 3 % (0-10) 06/15/22 06:35 Reactive Lymphs % (Man) 3 % 06/15/22 06:35 Abnorm Lymph % (Manual) 0 % 06/15/22 06:35 Metamyelocytes % 4 % (-0) H 06/15/22 06:35 Myelocytes % 6 % (-0) H 06/15/22 06:35 Promyelocytes % Cancelled 06/12/22 09:12 Blast Cells % 2 % H* 06/13/22 06:00 Plasma Cell % (Manual) Cancelled 06/12/22 09:12 Other Cells % Cancelled 06/12/22 09:12 Nucleated RBC % Not Reportable 06/15/22 06:35 Neutrophils # (Manual) 1.2 10^3/uL (1.5-6.6) L 06/15/22 06:35 Lymphocytes # (Manual) 1.2 10^3/uL (1.5-3.5) L 06/15/22 06:35 Monocytes # (Manual) 0.2 10^3/uL (0.0-1.0) 06/15/22 06:35 Eosinophils # (Manual) 0.1 10^3/uL (0-0.7) 06/15/22 06:35 Basophils # (Manual) 0.1 10^3/uL (0-0.1) 06/15/22 06:35 Nucleated RBCs Cancelled 06/12/22 09:12 Differential Comment MANUAL DIFFERENTIAL 06/15/22 06:35 Manual Slide Review Cancelled 06/12/22 09:12 WBC Morphology NORMAL APPEARANCE (NORMAL) 06/14/22 06:13 Platelet Estimate DECREASED (<130,000) (NORMAL) 06/15/22 06:35 Platelet Morphology NORMAL APPEARANCE (NORMAL) 06/14/22 06:13 RBC Morph Micro Appear 1+ HYPOCHROMASIA (NORMAL) 1+ MICROCYTOSIS (NORMAL) 06/15/22 06:35 RBC Morph Micro Appear 1+ HYPOCHROMASIA (NORMAL) 1+ MICROCYTOSIS (NORMAL) 06/15/22 06:35 Sodium 135 mmol/L (135-145) 06/15/22 06:35 Potassium 3.1 mmol/L (3.5-5.0) L 06/15/22 06:35 Chloride 101 mmol/L (101-111) 06/15/22 06:35 Carbon Dioxide 25 mmol/L (21-32) 06/15/22 06:35 Anion Gap 9.0 (6-13) 06/15/22 06:35 BUN 19 mg/dL (6-20) 06/15/22 06:35 Creatinine 0.9 mg/dL (0.6-1.2) 06/15/22 06:35 Estimated GFR (MDRD) 83 (>89) L 06/15/22 06:35 Glucose 137 mg/dL (70-100) H 06/15/22 06:35 POC Whole Bld Glucose 182 mg/dL (70 - 100) H 06/15/22 11:19 Calcium 7.9 mg/dL (8.5-10.3) L 06/15/22 06:35 Phosphorus 2.3 mg/dL (2.5-4.6) L 06/15/22 06:35 Magnesium 1.4 mg/dL (1.7-2.8) L 06/15/22 06:35 Total Bilirubin 1.4 mg/dL (0.2-1.0) H 06/15/22 06:35 AST < 10 IU/L (10-42) L 06/15/22 06:35 ALT < 10 IU/L (10-60) L 06/15/22 06:35 Alkaline Phosphatase 45 IU/L (42-121) 06/15/22 06:35 Lactate Dehydrogenase 207 IU/L (91-225) 06/12/22 09:12 Total Protein 5.1 g/dL (6.7-8.2) L 06/15/22 06:35 Albumin 2.3 g/dL (3.2-5.5) L 06/15/22 06:35 Globulin 2.8 g/dL (2.1-4.2) 06/15/22 06:35 Albumin/Globulin Ratio 0.8 (1.0-2.2) L 06/15/22 06:35 Prealbumin 8 mg/dL (18-45) L 06/15/22 06:35 Triglycerides 129 mg/dL (-149) 06/15/22 06:35 Stl C. diff Tox B Gene NEGATIVE (NEGATIVE) 06/11/22 17:49 Last Dose Date 06/15/22 06/15/22 17:54 Last Dose Time 0600 06/15/22 17:54 Vancomycin Trough 22.2 ug/mL (10.0-20.0) H 06/15/22 17:54 Slides for Path Review Cancelled 06/12/22 09:12 - Procedures Procedures: Procedures TRANSFUSE NONAUT RED BLOOD CELLS IN PERIPH VEIN, PERC (08/19/21)
[2022-06-15] MEDS: VANCOMYCIN INJ 1 GM, VANCOMYCIN INJ 250 MG in SODIUM CHLORIDE 0.9% 250 ML IV SCH (19:10)
[2022-06-16] MEDS: SODIUM CHLORIDE FLUSH 0.9% 10 ML SYRINGE IVP SCH ×3 (04:08→17:16)
[2022-06-16] MEDS: DIPHENOX/ATROPINE 2.5/0.025 MG TABLET PO PRN ×4 (04:09→23:35)
[2022-06-16] MEDS: CEFEPIME 2 GM in SODIUM CHLORIDE 0.9% MINIBAG 100 ML IV SCH ×3 (04:14→19:47)
[2022-06-16 07:08] LABS: BASOPHILS % (AUTO) 0.6 %; EOSINOPHILS % (AUTO) 6.7 %; LYMPHOCYTES % (AUTO) 24.9 %; MEAN CORPUSCULAR HEMOGLOBIN 28.8 pg (27.0-31.0); MEAN CORPUSCULAR HGB CONC 33.5 g/dL (32.0-36.0); MEAN CORPUSCULAR VOLUME 85.8 fL (80.0-94.0); MEAN PLATELET VOLUME 11.2 fL (7.4-11.4); MONOCYTES % (AUTO) 13.2 %; NEUTROPHILS % (AUTO) 33.6 %; RED BLOOD COUNT 2.19 10^6/uL (4.70-6.10); RED CELL DISTRIBUTION WIDTH 14.1 % (12.0-15.0); WHITE BLOOD COUNT 3.6 x10^3/uL (4.8-10.8)
[2022-06-16 07:11] LABS: HGB - HEMOGLOBIN 6.3 g/dL (14.0-18.0)
[2022-06-16 07:12] LABS: HCT - HEMATOCRIT 18.8 % (42.0-52.0); PLT - PLATELET COUNT 3 10^3/uL (130-450)
[2022-06-16 07:13] LABS: ABNORMAL LYMPHS % (MANUAL) 0 %
[2022-06-16 07:18] LABS: ALBUMIN 2.3 g/dL (3.2-5.5); ALBUMIN/GLOBULIN RATIO 0.9 (1.0-2.2); ALKALINE PHOSPHATASE 42 IU/L (42-121); ALT ALANINE AMINOTRANSFERASE < 10 IU/L (10-60); AST ASPARTATE AMINOTRANSFERASE 10 IU/L (10-42); BUN - BLOOD UREA NITROGEN 17 mg/dL (6-20); CALCIUM 7.6 mg/dL (8.5-10.3); CARBON DIOXIDE - CO2 25 mmol/L (21-32); CHLORIDE 102 mmol/L (101-111); CREATININE 0.8 mg/dL (0.6-1.2); GFR - MDRD 95 (>89); GLUCOSE 159 mg/dL (70-100); POTASSIUM 3.2 mmol/L (3.5-5.0); SODIUM 134 mmol/L (135-145); TOTAL PROTEIN 4.8 g/dL (6.7-8.2)
[2022-06-16 07:47] LABS: BAND NEUTROPHILS % (MANUAL) 7 %; BASOPHILS # (MANUAL) 0.1 10^3/uL (0-0.1); BASOPHILS % (MANUAL) 4 %; EOSINOPHILS # (MANUAL) 0.1 10^3/uL (0-0.7); LYMPHOCYTES % (MANUAL) 29 %; METAMYELOCYTES % (MANUAL) 2 %; MONOCYTES # (MANUAL) 0.7 10^3/uL (0.0-1.0); MYELOCYTES % (MANUAL) 4 %; NEUTROPHILS # (MANUAL) 1.4 10^3/uL (1.5-6.6); PROMYELOCYTES % (MANUAL) 1 %
[2022-06-16 07:48] LABS: RBC MORPHOLOGY (MULTIPLE) 2+ HYPOCHROMASIA (NORMAL)
[2022-06-16 07:49] LABS: DIFFERENTIAL COMMENT MANUAL DIFFERENTIAL
[2022-06-16] MEDS: VANCOMYCIN INJ 1 GM, VANCOMYCIN INJ 250 MG in SODIUM CHLORIDE 0.9% 250 ML IV SCH ×2 (08:06→20:48)
[2022-06-16] MEDS: glipiZIDE 5 MG TABLET PO SCH ×2 (08:11→17:15)
[2022-06-16] MEDS: CALCIUM CARBONATE CHEW 500 MG TABLET PO SCH ×2 (08:11→17:15)
[2022-06-16] MEDS: INSULIN LISPRO 300 UNIT/3 ML PEN SUBQ SCH ×4 (08:12→21:59)
[2022-06-16] MEDS: INSULIN GLARGINE-YFGN 300 UNIT/3 ML PEN SUBQ SCH ×2 (08:13→21:59)
[2022-06-16] MEDS ORDERED: ACETAMINOPHEN 325 MG TABLET PO ONE (11:35)
[2022-06-16] MEDS ORDERED: diphenhydrAMINE INJ 50 MG/ML VIAL IVP ONE (11:45)
[2022-06-16] MEDS: MAGNESIUM OXIDE 400 MG TABLET PO SCH (12:16)
--- NOTE | 2022-06-16 15:44 | PROVIDER PROGRESS NOTE ---
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 This is very likely the cause of his neutropenic fevers. Plan: Continue empiric iv Cefepime We added iv Vanco, and there is TORIBIO I contacted his [facility] [place] Oncologist, Dr. Cassandra Brunner on 06/14, to discuss whether the port should be removed and another port implanted several days later, and she advised that the port does not need to be removed unless there is clinical appearance that it is infected (red, swollen), which it is not. Today I spoke to infectious disease at . Dr. Eldridge advised that he get a 10-day course of treatment, starting from the day that he improved. Advised rechecking blood cultures to assure they are negative now, which they probably are since he is clinically improving. He advised stopping antibiotics after 10 days, waiting 2 days, then getting blood cultures from port and periphery on day 3. If those turn positive then the port is infected and the port would need to come out. This would be done at a hospital with higher level of care. I told the patient these recommendations and plan and he agrees. The patient asked me to call his daughter Vijaya and I did call her at [phone]. She is also agreeable with the plan. (2) Pancytopenia Conclusion/Plan: Due to both chemotherapy (unknown type, that he is getting treatment from [facility]), as well as from the natural progression of his disease. He is neutropenic, anemic, and thrombocytopenic. Our [facility] [place] clinic wanted him transfused using irradiated leukocyte reduced packed red cells. And they also want him infused w/ 2 units of irradiated platelets. Premedication is with Benadryl 50 mg IV push and Tylenol 650 mg. The patient tells me he would like to Benadryl pushed very slowly because he gets very "woozy" when he goes too fast. The [facility] [place] clnic notes were reviewed and sytate to transfuse PRBCs if Hgb <7 and with plts if plt count <5. The patient asked me to call his daughter Vijaya and I did call her at [phone]. She reported that the pt has been very resistant to thinking about Hospice or end of life, but is willing to speak to Palliative Care. Will order a Palliative Care consult. The daughter would like to be here for that meeting, and she cannot come here from [place], [place] until 06/19. Plan: No transfusion today (with Hgb7 and plt count 9). Will arrange for that Palliative Care consult for 06/19 (3) Myelodysplasia (myelodysplastic syndrome) Conclusion/Plan: Terminal illness. Patient has been told by oncology over the last couple of months that there is nothing more they can offer. Patient enrolled himself in a experimental protocol at [facility] and gets iv therapy (he does not know if he has the treatment med or the control). ACP was held with him at the last hospitalization, last week and he is DNR. Still wants blood transfusions. Would like to in the hospital. Daughter wants to take him home to her house. He is currently refusing her offer. He cannot go home to since his is experiencing her own life crisis w binge drinking right now and would not be able to take care of him. He refuses Hospice because he would have to stop blood transfusions so he can't get to [facility], or SNF w hospice, or [facility]/longterm w hospice. Daughter is Vijaya Pham [phone] and she is POA. If he gets confused enough or debilitated enough she will take him home to be with her. (4) Chronic diarrhea Conclusion/Plan: He seems to be describing clear watery diarrhea. There is not even any stool or food in it. We suspect malabsorption. There is no blood in it so I do not think he is sloughing or bleeding into his colon because of his thro mbocytopenia. Checked for C. difficile and result was neg Checked for cultures of Salmonella, Shigella, Campylobacter, still pending Plan: IV hydration Lomotil, will increase frequency, since C. difficile negative PPN stopped after 2 days We advanced his diet to solids, since this is not episodic diarrhea, but has been for many mos. BMPdaily Qualifiers: Diarrhea type: unspecified type Qualified Code(s): R19.7 - Diarrhea, unspecified (5) Hx Hypertension Conclusion/Plan: BP was soft at 95/55. He was also tachycardic 115. Plan: We held off on giving him his usual home BP medications of telmisartan and hydrochlorothiazide. He got iv NS, changed to iv PPN, now both stopped as VSS Qualifiers: Hypertension type: primary hypertension Qualified Code(s): I10 - Essential (primary) hypertension (6) Type 2 diabetes mellitus, controlled Conclusion/Plan: He was not eating very much. Takes oral medication for DM when at home. Plan: Started PPN Started ss Insulin coverage for glu checks q6h. Since we did advance his diet, we changed to glu checks ac and hs. 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 Plan: Will replace po and iv. Follow BMP daily (8) Hypomagnesemia Conclusion/Plan: From poor intake and losses in chronic diarrhea. Plan: Will replace po and iv. Follow Mg daily - Current Meds Current Meds: Current Medications Generic Name Dose Route Start Last Admin Trade Name Freq PRN Reason Stop Dose Admin Acetaminophen 650 mg 06/11/22 16:33 06/14/22 18:54 Acetaminophen 325 Mg Tablet PO 650 mg Q4HR PRN Administration Pain 1 to 4, or Fever Calcium Carbonate/Glycine 500 mg 06/15/22 17:00 06/16/22 08:11 Calcium Carbonate Chew 500 Mg Tablet PO 500 mg 0900,1700 ANUSHA Administration Diphenhydramine HCl 25 mg 06/11/22 22:53 06/14/22 18:54 Diphenhydramine Inj 50 Mg/Ml Vial IVP 25 mg Q6H PRN Administration Allergy Symptoms Diphenoxylate HCl/Atropine 1 tab 06/12/22 10:28 06/16/22 12:24 Diphenox/Atropine 2.5/0.025 Mg Tablet PO 1 tab Q4H PRN Administration Diarrhea Glipizide 5 mg 06/14/22 17:00 06/16/22 08:11 Glipizide 5 Mg Tablet PO 5 mg BIDWM ANUSHA Administration Cefepime HCl 2 gm/ Sodium 100 mls @ 200 mls/hr 06/14/22 12:00 06/16/22 12:55 Chloride IV Infused Q8H ANUSHA Infusion Vancomycin HCl 1 gm/ 250 mls @ 167 mls/hr 06/15/22 20:00 06/16/22 09:44 Vancomycin HCl 250 mg/ Sodium IV Infused Chloride Q12H ANSUHA Infusion Insulin Glargine-yfgn 5 unit 12/01/22 10:54 06/16/22 08:13 Insulin Glargine-Yfgn 300 Unit/3 Ml Pen SUBQ 5 unit BID ANUSHA Administration Insulin Human Lispro 1 - 9 unit 06/14/22 21:00 06/16/22 12:16 Insulin Lispro 300 Unit/3 Ml Pen SUBQ 1 unit 0800,1200,1700,2100 [facility] Administration Protocol Magnesium Oxide 400 mg 06/15/22 12:00 06/16/22 12:16 Magnesium Oxide 400 Mg Tablet PO 400 mg 1200 ANUSHA Administration Ondansetron HCl 4 mg 06/11/22 16:33 06/14/22 13:23 Ondansetron Odt 4 Mg Tablet TL 4 mg Q6HR PRN Administration Nausea / Vomiting Ondansetron HCl 4 mg 06/11/22 16:33 06/14/22 22:50 Ondansetron 4 Mg/2 Ml Vial IVP 4 mg Q6HR PRN Administration Nausea / Vomiting Sodium Chloride 10 ml 06/11/22 16:33 06/14/22 22:50 Sodium Chloride Flush 0.9% 10 Ml Syringe IVP 10 ml PRN PRN Administration NEEDED PER PROVIDER ORDERS Sodium Chloride 10 ml 06/11/22 17:00 06/16/22 08:13 Sodium Chloride Flush 0.9% 10 Ml Syringe IVP 10 ml 0100,0900,1700 [facility] Administration - Lab Result Fish Bone Diagrams: 06/19/22 04:45 06/19/22 04:45 - Additional Planning My Orders: My Active Orders 06/15/22 17:00 Calcium Carbonate [Tums] 500 mg PO 0900,1700 06/15/22 20:00 Vancomycin Inj [Vancomycin] 1 gm Vancomycin Inj [Vancomycin Hcl] 250 mg Sodium Chloride 0.9% [Normal Saline 0.9%] 250 ml IV Q12H 06/16/22 11:35 Transfuse Platelet Pheresis Pk [RC] .ONCE Transfuse RBCs Leukoreduced [RC] .ONCE 06/16/22 11:53 ANTIBODY IDENTIFICATION Stat DIRECT TANISHA Stat PLATELETPHERESIS LEUKO REDUCED Stat RBC, LEUKOREDUCED Stat TYPE AND SCREEN Stat 06/17/22 05:00 COMPREHENSIVE METABOLIC PANEL [CHEM] Routine MAGNESIUM [CHEM] Routine PHOSPHORUS [CHEM] Routine PREALBUMIN [CHEM] Routine TRIGLYCERIDES [CHEM] Routine 06/20/22 05:00 COMPREHENSIVE METABOLIC PANEL [CHEM] Routine MAGNESIUM [CHEM] Routine PHOSPHORUS [CHEM] Routine PREALBUMIN [CHEM] Routine TRIGLYCERIDES [CHEM] Routine Subjective - Subjective Patient Reports: Resting Comfortably, Other (unchanged watery diarrhea, no SOB, infrequent cough) Objective Vital Signs: Vital Signs - 24 hr 06/15/22 06/16/22 06/16/22 16:00 00:35 07:29 Temperature 36.9 C 36.7 C 36.7 C Heart Rate [ 79 82 81 Brachial] Respiratory 18 18 20 Rate Blood Pressure 119/61 134/55 H 118/64 [Right Brachial artery] O2 Saturation 97 95 98 Oxygen O2 Source Room air I&O (Last 24 Hrs): Intake and Output Totals x24h 06/14/22 06/15/22 06/16/22 23:59 23:59 23:59 Intake Total 5091 3342.833 1860 Output Total 675 Balance 5091 2667.833 1860 General: Alert, Oriented x3, No acute distress HEENT: EOMI, Mucous membr. moist/pink Neck: Supple, No JVD Neuro: Alert, Non Focal Cardiovascular: Regular rate Respiratory: No respiratory distress Abdomen: Soft, No tenderness Extremities: Other (1+ ankle edema, bruises of arms in different stages of healing) - Results Results: Laboratory Results WBC 3.6 x10^3/uL (4.8-10.8) L 06/16/22 07:00 Corrected WBC Cancelled 06/12/22 09:12 RBC 2.19 10^6/uL (4.70-6.10) L 06/16/22 07:00 Hgb 6.3 g/dL (14.0-18.0) L* 06/16/22 07:00 Hct 18.8 % (42.0-52.0) L* 06/16/22 07:00 MCV 85.8 fL (80.0-94.0) 06/16/22 07:00 MCH 28.8 pg (27.0-31.0) 06/16/22 07:00 MCHC 33.5 g/dL (32.0-36.0) 06/16/22 07:00 RDW 14.1 % (12.0-15.0) 06/16/22 07:00 Plt Count 3 10^3/uL (130-450) L* 06/16/22 07:00 MPV 11.2 fL (7.4-11.4) 06/16/22 07:00 Neut # (Auto) Not Reportable 06/16/22 07:00 Lymph # (Auto) Not Reportable 06/16/22 07:00 [place] # (Auto) Not Reportable 06/16/22 07:00 Eos # (Auto) Not Reportable 06/16/22 07:00 Baso # (Auto) Not Reportable 06/16/22 07:00 Absolute Nucleated RBC Not Reportable 06/16/22 07:00 Total Counted 100 06/16/22 07:00 Band Neuts % (Manual) 7 % (0-10) 06/16/22 07:00 Reactive Lymphs % (Man) 3 % 06/15/22 06:35 Abnorm Lymph % (Manual) 0 % 06/16/22 07:00 Metamyelocytes % 2 % (-0) H 06/16/22 07:00 Myelocytes % 4 % (-0) H 06/16/22 07:00 Promyelocytes % 1 % (-0) H 06/16/22 07:00 Blast Cells % 2 % H* 06/13/22 06:00 Plasma Cell % (Manual) Cancelled 06/12/22 09:12 Other Cells % Cancelled 06/12/22 09:12 Nucleated RBC % Not Reportable 06/16/22 07:00 Neutrophils # (Manual) 1.4 10^3/uL (1.5-6.6) L 06/16/22 07:00 Lymphocytes # (Manual) 1.0 10^3/uL (1.5-3.5) L 06/16/22 07:00 Monocytes # (Manual) 0.7 10^3/uL (0.0-1.0) 06/16/22 07:00 Eosinophils # (Manual) 0.1 10^3/uL (0-0.7) 06/16/22 07:00 Basophils # (Manual) 0.1 10^3/uL (0-0.1) 06/16/22 07:00 Nucleated RBCs Cancelled 06/12/22 09:12 Differential Comment MANUAL DIFFERENTIAL 06/16/22 07:00 Manual Slide Review Cancelled 06/12/22 09:12 WBC Morphology NORMAL APPEARANCE (NORMAL) 06/14/22 06:13 Platelet Estimate DECREASED (<130,000) (NORMAL) 06/15/22 06:35 Platelet Morphology NORMAL APPEARANCE (NORMAL) 06/14/22 06:13 RBC Morph Micro Appear 2+ HYPOCHROMASIA (NORMAL) 06/16/22 07:00 Sodium 134 mmol/L (135-145) L 06/16/22 07:00 Potassium 3.2 mmol/L (3.5-5.0) L 06/16/22 07:00 Chloride 102 mmol/L (101-111) 06/16/22 07:00 Carbon Dioxide 25 mmol/L (21-32) 06/16/22 07:00 Anion Gap 7.0 (6-13) 06/16/22 07:00 BUN 17 mg/dL (6-20) 06/16/22 07:00 Creatinine 0.8 mg/dL (0.6-1.2) 06/16/22 07:00 Estimated GFR (MDRD) 95 (>89) 06/16/22 07:00 Glucose 159 mg/dL (70-100) H 06/16/22 07:00 POC Whole Bld Glucose 168 mg/dL (70 - 100) H 06/16/22 11:21 Calcium 7.6 mg/dL (8.5-10.3) L 06/16/22 07:00 Phosphorus 2.3 mg/dL (2.5-4.6) L 06/15/22 06:35 Magnesium 1.4 mg/dL (1.7-2.8) L 06/15/22 06:35 Total Bilirubin 1.0 mg/dL (0.2-1.0) 06/16/22 07:00 AST 10 IU/L (10-42) 06/16/22 07:00 ALT < 10 IU/L (10-60) L 06/16/22 07:00 Alkaline Phosphatase 42 IU/L (42-121) 06/16/22 07:00 Lactate Dehydrogenase 207 IU/L (91-225) 06/12/22 09:12 Total Protein 4.8 g/dL (6.7-8.2) L 06/16/22 07:00 Albumin 2.3 g/dL (3.2-5.5) L 06/16/22 07:00 Globulin 2.5 g/dL (2.1-4.2) 06/16/22 07:00 Albumin/Globulin Ratio 0.9 (1.0-2.2) L 06/16/22 07:00 Prealbumin 8 mg/dL (18-45) L 06/15/22 06:35 Triglycerides 129 mg/dL (-149) 06/15/22 06:35 Stl C. diff Tox B Gene NEGATIVE (NEGATIVE) 06/11/22 17:49 Last Dose Date 06/15/22 06/15/22 17:54 Last Dose Time 0600 06/15/22 17:54 Vancomycin Trough 22.2 ug/mL (10.0-20.0) H 06/15/22 17:54 Slides for Path Review Cancelled 06/12/22 09:12 Blood Type O NEGATIVE 06/16/22 11:53 Antibody Screen POSITIVE 06/16/22 11:53 Antibody Identification Inconclusive 06/16/22 11:53 JANET, IgG Specific POSITIVE 06/16/22 11:53 JANET, Polyspecific POSITIVE 06/16/22 11:53 JANET, C3d Specific NEGATIVE 06/16/22 11:53 Crossmatch See Detail 06/16/22 11:53 - Procedures Procedures: Procedures TRANSFUSE NONAUT RED BLOOD CELLS IN PERIPH VEIN, PERC (08/19/21)
[2022-06-17] MEDS: ACETAMINOPHEN 325 MG TABLET PO PRN (00:15)
[2022-06-17] MEDS: diphenhydrAMINE INJ 50 MG/ML VIAL IVP PRN (00:15)
[2022-06-17] MEDS: SODIUM CHLORIDE FLUSH 0.9% 10 ML SYRINGE IVP SCH ×3 (01:20→17:02)
[2022-06-17] MEDS: CEFEPIME 2 GM in SODIUM CHLORIDE 0.9% MINIBAG 100 ML IV SCH ×3 (03:40→21:24)
[2022-06-17] MEDS: DIPHENOX/ATROPINE 2.5/0.025 MG TABLET PO PRN ×3 (04:31→16:10)
[2022-06-17 06:30] LABS: BASOPHILS % (AUTO) 0.8 %; EOSINOPHILS % (AUTO) 5.9 %; HCT - HEMATOCRIT 21.8 % (42.0-52.0); HGB - HEMOGLOBIN 7.4 g/dL (14.0-18.0); LYMPHOCYTES % (AUTO) 23.4 %; MEAN CORPUSCULAR HEMOGLOBIN 29.1 pg (27.0-31.0); MEAN CORPUSCULAR HGB CONC 33.9 g/dL (32.0-36.0); MEAN CORPUSCULAR VOLUME 85.8 fL (80.0-94.0); MEAN PLATELET VOLUME 10.6 fL (7.4-11.4); MONOCYTES % (AUTO) 22.6 %; NEUTROPHILS % (AUTO) 34.7 %; RED BLOOD COUNT 2.54 10^6/uL (4.70-6.10); RED CELL DISTRIBUTION WIDTH 14.6 % (12.0-15.0); WHITE BLOOD COUNT 6.3 x10^3/uL (4.8-10.8)
[2022-06-17 06:40] LABS: PLT - PLATELET COUNT 14 10^3/uL (130-450)
[2022-06-17 06:41] LABS: ABNORMAL LYMPHS % (MANUAL) 0 %
[2022-06-17 06:43] LABS: ALBUMIN 2.3 g/dL (3.2-5.5); ALBUMIN/GLOBULIN RATIO 0.8 (1.0-2.2); BILIRUBIN,TOTAL 1.7 mg/dL (0.2-1.0); CALCIUM 8.2 mg/dL (8.5-10.3); CREATININE 0.9 mg/dL (0.6-1.2); MAGNESIUM 1.4 mg/dL (1.7-2.8); PHOSPHORUS 2.5 mg/dL (2.5-4.6); TOTAL PROTEIN 5.3 g/dL (6.7-8.2)
[2022-06-17 07:05] LABS: BAND NEUTROPHILS % (MANUAL) 8 %; BASOPHILS # (MANUAL) 0.1 10^3/uL (0-0.1); BASOPHILS % (MANUAL) 1 %; EOSINOPHILS # (MANUAL) 0.3 10^3/uL (0-0.7); LYMPHOCYTES # (MANUAL) 1.5 10^3/uL (1.5-3.5); LYMPHOCYTES % (MANUAL) 24 %; METAMYELOCYTES % (MANUAL) 10 %; MONOCYTES # (MANUAL) 1.1 10^3/uL (0.0-1.0); MYELOCYTES % (MANUAL) 11 %; NEUTROPHILS # (MANUAL) 1.9 10^3/uL (1.5-6.6); PLATELET ESTIMATE, MANUAL DECREASED (<130,000) (NORMAL); PROMYELOCYTES % (MANUAL) 2 %; RBC MORPHOLOGY (MULTIPLE) 1+ HYPOCHROMASIA (NORMAL)
[2022-06-17 07:06] LABS: DIFFERENTIAL COMMENT MANUAL DIFFERENTIAL
[2022-06-17] MEDS ORDERED: MAGNESIUM SULFATE 2 GRAM 2 GM/50 ML BAG IV ONE ×2 (07:53→10:30)
[2022-06-17] MEDS: CALCIUM CARBONATE CHEW 500 MG TABLET PO SCH ×2 (08:12→17:01)
[2022-06-17] MEDS: glipiZIDE 5 MG TABLET PO SCH ×2 (08:13→17:02)
[2022-06-17] MEDS: POTASSIUM CHLORIDE 10 MEQ CAPSULE PO SCH (08:13)
[2022-06-17] MEDS: INSULIN GLARGINE-YFGN 300 UNIT/3 ML PEN SUBQ SCH ×2 (08:14→21:25)
[2022-06-17] MEDS: VANCOMYCIN INJ 1 GM, VANCOMYCIN INJ 250 MG in SODIUM CHLORIDE 0.9% 250 ML IV SCH ×2 (08:21→19:57)
[2022-06-17] MEDS: INSULIN LISPRO 300 UNIT/3 ML PEN SUBQ SCH ×4 (09:26→21:25)
[2022-06-17] MEDS: POTASSIUM CHLOR 10 MEQ/100 ML 10 MEQ/100 ML BAG IV SCH ×3 (11:11→14:42)
[2022-06-17] MEDS: MAGNESIUM OXIDE 400 MG TABLET PO SCH (13:18)
--- NOTE | 2022-06-17 18:40 | PROVIDER PROGRESS NOTE ---
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 This is very likely the cause of his neutropenic fevers. Plan: Continue empiric iv Cefepime We added iv Vanco for poss TORIBIO, and the bug is Methicillin resistant I contacted his [facility]cologist, Dr. Cassandra Brunner on 06/14, to discuss whether the port should be removed and another port implanted several days later, and she advised that the port does not need to be removed unless there is clinical appearance that it is infected (red, swollen), which it is not. Today I spoke to infectious disease at . Dr. Eldridge advised that he get a 10-day course of treatment, starting from the day that he improved. Advised rechecking blood cultures to assure they are negative now, which they probably are since he is clinically improving. He advised stopping antibiotics after 10 days, waiting 2 days, then getting blood cultures from port and periphery on day 3. If those turn positive then the port is infected and the port would need to come out. This would be done at a hospital with higher level of care. I told the patient these recommendations and plan and he agrees. The patient asked me to call his daughter Vijaya and I did call her at [phone]. She is also agreeable with the plan. (2) Pancytopenia Conclusion/Plan: Due to both chemotherapy (unknown type, that he is getting treatment from [facility]), as well as from the natural progression of his disease. He is neutropenic, anemic, and thrombocytopenic. Our [facility] clinic wanted him transfused using irradiated leukocyte reduced packed red cells. And they also want him infused w/ 2 units of irradiated platelets. Premedication is with Benadryl 50 mg IV push and Tylenol 650 mg. The patient tells me he would like to Benadryl pushed very slowly because he gets very "woozy" when he goes too fast. The [facility] clnic notes were reviewed and sytate to transfuse PRBCs if Hgb <7 and with plts if plt count <5. The patient asked me to call his daughter Vijaya and I did call her at [phone]. She reported that the pt has been very resistant to thinking about Hospice or end of life, but is willing to speak to Palliative Care. Will order a Palliative Care consult. The daughter would like to be here for that meeting, and she cannot come here from [place] until 06/19. Plan: Transfuse when Hgb <7 and when plts <10, with premedication Will arrange for that Palliative Care consult for 06/19 (3) Myelodysplasia (myelodysplastic syndrome) Conclusion/Plan: Terminal illness. Patient has been told by oncology over the last couple of months that there is nothing more they can offer. Patient enrolled himself in a experimental protocol at [facility] and gets iv therapy (he does not know if he has the treatment med or the control). ACP was held with him at the last hospitalization, last week and he is DNR. Still wants blood transfusions. Would like to in the hospital. Daughter wants to take him home to her house. He is currently refusing her offer. He cannot go home to since his is experiencing her own life crisis w binge drinking right now and would not be able to take care of him. He refuses Hospice because he would have to stop blood transfusions so he can't get to [facility], or [facility] w hospice, or [facility]/long-term w hospice. Daughter is Vijaya Pham [phone] and she is POA. If he gets confused enough or debilitated enough she will take him home to be with her. (4) Chronic diarrhea Conclusion/Plan: He seems to be describing clear watery diarrhea. There is not even any stool or food in it. We suspect malabsorption. There is no blood in it so I do not think he is sloughing or bleeding into his colon because of his thrombocytopenia. Checked for C. difficile and result was neg Checked for cultures of Salmonella, Shigella, Campylobacter, still pending Plan: IV hydration Lomotil, will increase frequency, since C. difficile negative He got NS then PPN when first admitted. We advanced his diet to solids, since this is not episodic diarrhea, but has been for many mos. BMPdaily Qualifiers: Diarrhea type: unspecified type Qualified Code(s): R19.7 - Diarrhea, unspecified (5) Hx Hypertension Conclusion/Plan: BP was soft at 95/55. He was also tachycardic 115. Plan: We held off on giving him his usual home BP medications of telmisartan and hydrochlorothiazide. He got iv NS, changed to iv PPN, both stopped when VSS Qualifiers: Hypertension type: primary hypertension Qualified Code(s): I10 - Essential (primary) hypertension (6) Type 2 diabetes mellitus, controlled Conclusion/Plan: He was not eating very much. Takes oral medication for DM when at home. Plan: Started PPN with ss Insulin coverage for glu checks q6h. PPN has been sopped. Since we did advance his diet, we changed to glu checks ac and hs. Qualifiers: Diabetes mellitus superintendent container terminal insulin use: without detention use (7) Hypokalemia Conclusion/Plan: From poor intake and losses in chronic diarrhea. Plan: Will replace po and iv. Follow BMP daily (8) Hypomagnesemia Conclusion/Plan: From poor intake and losses in chronic diarrhea. Plan: Will replace po and iv. Follow Mg daily - Current Meds Current Meds: Current Medications Generic Name Dose Route Start Last Admin Trade Name Freq PRN Reason Stop Dose Admin Acetaminophen 650 mg 06/11/22 16:33 06/17/22 00:15 Acetaminophen 325 Mg Tablet PO 650 mg Q4HR PRN Administration Pain 1 to 4, or Fever Calcium Carbonate/Glycine 500 mg 06/15/22 17:00 06/17/22 17:01 Calcium Carbonate Chew 500 Mg Tablet PO 500 mg 0900,1700 ANUSHA Administration Diphenhydramine HCl 25 mg 06/11/22 22:53 06/17/22 00:15 Diphenhydramine Inj 50 Mg/Ml Vial IVP 25 mg Q6H PRN Administration Allergy Symptoms Diphenoxylate HCl/Atropine 1 tab 06/12/22 10:28 06/17/22 16:10 Diphenox/Atropine 2.5/0.025 Mg Tablet PO 1 tab Q4H PRN Administration Diarrhea Glipizide 5 mg 06/14/22 17:00 06/17/22 17:02 Glipizide 5 Mg Tablet PO 5 mg BIDWM ANUSHA Administration Cefepime HCl 2 gm/ Sodium 100 mls @ 200 mls/hr 06/14/22 12:00 06/17/22 13:24 Chloride IV Infused Q8H ANUSHA Infusion Vancomycin HCl 1 gm/ 250 mls @ 167 mls/hr 06/15/22 20:00 06/17/22 10:07 Vancomycin HCl 250 mg/ Sodium IV Infused Chloride Q12H ANUSHA Infusion Insulin Glargine-yfgn 5 unit 06/14/22 10:54 06/17/22 08:14 Insulin Glargine-Yfgn 300 Unit/3 Ml Pen SUBQ 5 unit BID ANUSHA Administration Insulin Human Lispro 1 - 9 unit 06/14/22 21:00 06/17/22 17:02 Insulin Lispro 300 Unit/3 Ml Pen SUBQ 1 unit 0800,1200,1700,2100 [facility] Administration Protocol Magnesium Oxide 400 mg 06/15/22 12:00 06/17/22 13:18 Magnesium Oxide 400 Mg Tablet PO 400 mg 1200 ANUSHA Administration Ondansetron HCl 4 mg 06/11/22 16:33 06/14/22 13:23 Ondansetron Odt 4 Mg Tablet TL 4 mg Q6HR PRN Administration Nausea / Vomiting Ondansetron HCl 4 mg 06/11/22 16:33 06/14/22 22:50 Ondansetron 4 Mg/2 Ml Vial IVP 4 mg Q6HR PRN Administration Nausea / Vomiting Potassium Chloride 30 meq 06/17/22 08:00 06/17/22 08:13 Potassium Chloride 10 Meq Capsule PO 30 meq DAILYWM ANUSHA Administration Sodium Chloride 10 ml 06/11/22 16:33 06/14/22 22:50 Sodium Chloride Flush 0.9% 10 Ml Syringe IVP 10 ml PRN PRN Administration NEEDED PER PROVIDER ORDERS Sodium Chloride 10 ml 06/11/22 17:00 06/17/22 17:02 Sodium Chloride Flush 0.9% 10 Ml Syringe IVP 10 ml 0100,0900,1700 [facility] Administration - Lab Result Fish Bone Diagrams: 06/19/22 04:45 06/19/22 04:45 - Additional Planning My Orders: My Active Orders 06/17/22 06:30 CULTURE, BLOOD #1 [RM] Routine 06/17/22 08:00 Potassium Chloride [Micro-K] 30 meq PO DAILYWM 06/18/22 05:00 CBC - COMP BLD CT W/AUTO DIFF [HEME] DAILYLAB 06/18/22 07:30 VANCOMYCIN TROUGH [CHEM] Timed 06/19/22 05:00 CBC - COMP BLD CT W/AUTO DIFF [HEME] DAILYLAB 06/20/22 05:00 CBC - COMP BLD CT W/AUTO DIFF [HEME] DAILYLAB Subjective - Subjective Patient Reports: Resting Comfortably, Other (unchanged watery diarrhea, not p ainful.) Objective Vital Signs: Vital Signs - 24 hr 06/16/22 06/16/22 06/17/22 19:46 23:37 00:22 Temperature 36.7 C 37.0 C 37.1 C Heart Rate [ 72 92 95 Brachial] Respiratory 18 20 18 Rate Blood Pressure 131/62 H 162/61 H 141/63 H [Right Brachial artery] O2 Saturation 95 95 93 06/17/22 06/17/22 06/17/22 00:35 00:51 03:34 Temperature 37.1 C 36.7 C 36.7 C Heart Rate [ 95 77 77 Brachial] Respiratory 18 18 18 Rate Blood Pressure 141/63 H 121/57 L 121/57 L [Right Brachial artery] O2 Saturation 93 94 94 06/17/22 06/17/22 07:18 16:00 Temperature 36.5 C 36.8 C Heart Rate [ 80 84 Brachial] Respiratory 16 18 Rate Blood Pressure 139/60 H 140/55 H [Right Brachial artery] O2 Saturation 98 96 Oxygen O2 Source Room air I&O (Last 24 Hrs): Intake and Output Totals x24h 06/15/22 06/16/22 06/17/22 23:59 23:59 23:59 Intake Total 3342.833 2450 1892 Output Total 675 Balance 2667.833 2450 1892 General: Alert, Oriented x3 HEENT: EOMI, Mucous membr. moist/pink Neck: Supple, No JVD Neuro: Alert, Non Focal Cardiovascular: Regular rate, No murmurs Respiratory: No respiratory distress Abdomen: Soft, No tenderness Extremities: No clubbing, Other (1+ ankle edema. Skin of arms have many bruises in different stages of healing) - Results Results: Laboratory Results WBC 6.3 x10^3/uL (4.8-10.8) 06/17/22 06:30 Corrected WBC Cancelled 06/12/22 09:12 RBC 2.54 10^6/uL (4.70-6.10) L 06/17/22 06:30 Hgb 7.4 g/dL (14.0-18.0) L 06/17/22 06:30 Hct 21.8 % (42.0-52.0) L 06/17/22 06:30 MCV 85.8 fL (80.0-94.0) 06/17/22 06:30 MCH 29.1 pg (27.0-31.0) 06/17/22 06:30 MCHC 33.9 g/dL (32.0-36.0) 06/17/22 06:30 RDW 14.6 % (12.0-15.0) 06/17/22 06:30 Plt Count 14 10^3/uL (130-450) L* 06/17/22 06:30 MPV 10.6 fL (7.4-11.4) 06/17/22 06:30 Neut # (Auto) Not Reportable 06/17/22 06:30 Lymph # (Auto) Not Reportable 06/17/22 06:30 [place] # (Auto) Not Reportable 06/17/22 06:30 Eos # (Auto) Not Reportable 06/17/22 06:30 Baso # (Auto) Not Reportable 06/17/22 06:30 Absolute Nucleated RBC Not Reportable 06/17/22 06:30 Total Counted 100 06/17/22 06:30 Band Neuts % (Manual) 8 % (0-10) 06/17/22 06:30 Reactive Lymphs % (Man) 3 % 06/15/22 06:35 Abnorm Lymph % (Manual) 0 % 06/17/22 06:30 Metamyelocytes % 10 % (-0) H 06/17/22 06:30 Myelocytes % 11 % (-0) H 06/17/22 06:30 Promyelocytes % 2 % (-0) H 06/17/22 06:30 Blast Cells % 2 % H* 06/13/22 06:00 Plasma Cell % (Manual) Cancelled 06/12/22 09:12 Other Cells % Cancelled 06/12/22 09:12 Nucleated RBC % Not Reportable 06/17/22 06:30 Neutrophils # (Manual) 1.9 10^3/uL (1.5-6.6) 06/17/22 06:30 Lymphocytes # (Manual) 1.5 10^3/uL (1.5-3.5) 06/17/22 06:30 Monocytes # (Manual) 1.1 10^3/uL (0.0-1.0) H 06/17/22 06:30 Eosinophils # (Manual) 0.3 10^3/uL (0-0.7) 06/17/22 06:30 Basophils # (Manual) 0.1 10^3/uL (0-0.1) 06/17/22 06:30 Nucleated RBCs Cancelled 06/12/22 09:12 Differential Comment MANUAL DIFFERENTIAL 06/17/22 06:30 Manual Slide Review Cancelled 06/12/22 09:12 WBC Morphology NORMAL APPEARANCE (NORMAL) 06/14/22 06:13 Platelet Estimate DECREASED (<130,000) (NORMAL) 06/17/22 06:30 Platelet Morphology NORMAL APPEARANCE (NORMAL) 06/14/22 06:13 RBC Morph Micro Appear 1+ HYPOCHROMASIA (NORMAL) 06/17/22 06:30 Sodium 137 mmol/L (135-145) 06/17/22 06:30 Potassium 3.0 mmol/L (3.5-5.0) L 06/17/22 06:30 Chloride 101 mmol/L (101-111) 06/17/22 06:30 Carbon Dioxide 27 mmol/L (21-32) 06/17/22 06:30 Anion Gap 9.0 (6-13) 06/17/22 06:30 BUN 16 mg/dL (6-20) 06/17/22 06:30 Creatinine 0.9 mg/dL (0.6-1.2) 06/17/22 06:30 Estimated GFR (MDRD) 83 (>89) L 06/17/22 06:30 Glucose 139 mg/dL (70-100) H 06/17/22 06:30 POC Whole Bld Glucose 145 mg/dL (70 - 100) H 06/17/22 16:52 Calcium 8.2 mg/dL (8.5-10.3) L 06/17/22 06:30 Phosphorus 2.5 mg/dL (2.5-4.6) 06/17/22 06:30 Magnesium 1.4 mg/dL (1.7-2.8) L 06/17/22 06:30 Total Bilirubin 1.7 mg/dL (0.2-1.0) H 06/17/22 06:30 AST 10 IU/L (10-42) 06/17/22 06:30 ALT 10 IU/L (10-60) 06/17/22 06:30 Alkaline Phosphatase 48 IU/L (42-121) 06/17/22 06:30 Lactate Dehydrogenase 207 IU/L (91-225) 06/12/22 09:12 Total Protein 5.3 g/dL (6.7-8.2) L 06/17/22 06:30 Albumin 2.3 g/dL (3.2-5.5) L 06/17/22 06:30 Globulin 3.0 g/dL (2.1-4.2) 06/17/22 06:30 Albumin/Globulin Ratio 0.8 (1.0-2.2) L 06/17/22 06:30 Prealbumin 8 mg/dL (18-45) L 06/15/22 06:35 Triglycerides 129 mg/dL (-149) 06/15/22 06:35 Stl C. diff Tox B Gene NEGATIVE (NEGATIVE) 06/11/22 17:49 Last Dose Date 06/15/22 06/15/22 17:54 Last Dose Time 0600 06/15/22 17:54 Vancomycin Trough 22.2 ug/mL (10.0-20.0) H 06/15/22 17:54 Slides for Path Review Cancelled 06/12/22 09:12 Blood Type O NEGATIVE 06/16/22 11:53 Antibody Screen POSITIVE 06/16/22 11:53 Antibody Identification Inconclusive 06/16/22 11:53 JANET, IgG Specific POSITIVE 06/16/22 11:53 JANET, Polyspecific POSITIVE 06/16/22 11:53 JANET, C3d Specific NEGATIVE 06/16/22 11:53 Crossmatch See Detail 06/16/22 11:53 - Procedures Procedures: Procedures TRANSFUSE NONAUT RED BLOOD CELLS IN PERIPH VEIN, PERC (08/19/21)
[2022-06-18] MEDS: DIPHENOX/ATROPINE 2.5/0.025 MG TABLET PO PRN ×5 (00:02→17:39)
[2022-06-18] MEDS: SODIUM CHLORIDE FLUSH 0.9% 10 ML SYRINGE IVP SCH ×3 (01:17→16:56)
[2022-06-18] MEDS: CEFEPIME 2 GM in SODIUM CHLORIDE 0.9% MINIBAG 100 ML IV SCH ×2 (04:13→12:42)
[2022-06-18 08:11] LABS: BASOPHILS % (AUTO) 1.1 %; EOSINOPHILS % (AUTO) 4.6 %; LYMPHOCYTES % (AUTO) 28.3 %; MEAN CORPUSCULAR HGB CONC 33.9 g/dL (32.0-36.0); MEAN CORPUSCULAR VOLUME 85.7 fL (80.0-94.0); MEAN PLATELET VOLUME 10.7 fL (7.4-11.4); MONOCYTES % (AUTO) 17.1 %; NEUTROPHILS % (AUTO) 31.5 %; RED CELL DISTRIBUTION WIDTH 14.6 % (12.0-15.0); WHITE BLOOD COUNT 6.3 x10^3/uL (4.8-10.8)
[2022-06-18 08:14] LABS: HGB - HEMOGLOBIN 6.1 g/dL (14.0-18.0); PLT - PLATELET COUNT 3 10^3/uL (130-450); SLIDE REVIEW? Indicated
[2022-06-18] MEDS: VANCOMYCIN INJ 1 GM, VANCOMYCIN INJ 250 MG in SODIUM CHLORIDE 0.9% 250 ML IV SCH (08:14)
[2022-06-18] MEDS: CALCIUM CARBONATE CHEW 500 MG TABLET PO SCH ×2 (08:14→16:54)
[2022-06-18] MEDS: glipiZIDE 5 MG TABLET PO SCH ×2 (08:14→16:54)
[2022-06-18] MEDS: POTASSIUM CHLORIDE 10 MEQ CAPSULE PO SCH (08:14)
[2022-06-18] MEDS: INSULIN GLARGINE-YFGN 300 UNIT/3 ML PEN SUBQ SCH ×2 (08:15→21:52)
[2022-06-18] MEDS: INSULIN LISPRO 300 UNIT/3 ML PEN SUBQ SCH ×4 (08:15→21:51)
[2022-06-18 08:17] LABS: ABNORMAL LYMPHS % (MANUAL) 0 %
[2022-06-18 08:22] LABS: VANCOMYCIN,TROUGH 27.3 ug/mL (10.0-20.0)
[2022-06-18 09:06] LABS: BAND NEUTROPHILS % (MANUAL) 3 %; BASOPHILS # (MANUAL) 0.1 10^3/uL (0-0.1); BASOPHILS % (MANUAL) 2 %; EOSINOPHILS # (MANUAL) 0.3 10^3/uL (0-0.7); LYMPHOCYTES # (MANUAL) 2.3 10^3/uL (1.5-3.5); LYMPHOCYTES % (MANUAL) 37 %; METAMYELOCYTES % (MANUAL) 7 %; MONOCYTES # (MANUAL) 0.6 10^3/uL (0.0-1.0); NEUTROPHILS # (MANUAL) 2.5 10^3/uL (1.5-6.6); NUCLEATED RBC (MANUAL) 2 %
[2022-06-18 09:07] LABS: DIFFERENTIAL COMMENT MANUAL DIFFERENTIAL; PLATELET ESTIMATE, MANUAL DECREASED (<130,000) (NORMAL); PLATELET MORPHOLOGY NORMAL APPEARANCE (NORMAL); RBC MORPHOLOGY (MULTIPLE) 1+ HYPOCHROMASIA (NORMAL); WBC MORPHOLOGY (MULTIPLE) NORMAL APPEARANCE (NORMAL)
[2022-06-18] MEDS ORDERED: ACETAMINOPHEN 325 MG TABLET PO ONE (11:56)
[2022-06-18] MEDS ORDERED: diphenhydrAMINE INJ 50 MG/ML VIAL IVP ONE (12:30)
[2022-06-18] MEDS: MAGNESIUM OXIDE 400 MG TABLET PO SCH (12:42)
--- NOTE | 2022-06-18 12:42 | PHARMACY PROGRESS NOTE ---
- Therapy Status Therapy status: Trough supratherapeutic Basis for treatment: Culture result (MRSE) Treatment indication: MRSE bacteremia Trough goal: 15-20 Concurrent antibiotics: Cefepime 2 g IV q8h - MICHAEL Risk Risk level for Acute Kidney Injury: High Acute Kidney Injury risk factors: Wt >100kg or BMI >40, Duration >7 days, Goal trough >15 - Monitoring and Recommendation Clinical response to treatment: I&O Previous 24 hours 06/16/22 06/17/22 06/18/22 23:59 23:59 23:59 Intake Total 2450 2642 125.05 Balance 2450 2642 125.05 Lab Results 06/17/22 06/16/22 06/15/22 06:30 07:00 06:35 Corrected WBC BUN 16 17 19 Creatinine 0.9 0.8 0.9 Estimated GFR (MDRD) 83 L 95 83 L 06/14/22 06/13/22 06/12/22 06:13 06:00 09:12 Corrected WBC BUN 23 H 26 H 31 H Creatinine 0.8 0.9 1.0 Estimated GFR (MDRD) 95 83 L 74 L 06/12/22 09:12 Corrected WBC Cancelled BUN Creatinine Estimated GFR (MDRD) Vancomycin Monitoring 06/18/22 06/15/22 07:55 17:54 Vancomycin Trough 27.3 H* 22.2 H Cultures 06/17/22 06:30 Blood Blood Culture - Preliminary NO GROWTH AFTER 1 DAY 06/11/22 17:49 Stool Salmonella/Shigella Screen - Final 06/11/22 17:49 Stool Stool Culture Result 1 - Final 06/11/22 17:49 Stool Campylobacter Culture - Final 06/11/22 17:49 Stool Campylobacter Result 1 - Final 06/11/22 17:49 Stool Escherichia coli Shiga Toxins EIA - Final 06/12/22 19:00 Sputum Gram Stain - Final Monitoring plan: Daily serum creatinine Next trough due (date/time): 06/21 @ 0530 Areas for additional monitoring: Acute Kidney Injury Pharmacy recommendation: Decrease dose (Decrease vancomycin maintenance dose from 1.25 gm q12h to 1.75 gm q24h for estimated AUC/DILAN of ~553 mcg*hr/mL and estimated trough of ~16 mcg/mL)
--- NOTE | 2022-06-18 17:52 | PROVIDER PROGRESS NOTE ---
Assessment/Plan - Problem List (1) Bacteremia due to methicillin resistant Staphylococcus epidermidis Assessment/Plan: 2 separate bld cx sites are growing Staph epi, which is Methicillin resistant. This is very likely the cause of his neutropenic fevers. Plan: Continue iv Vanco for TORIBIO. Will stop empiric iv Cefepime that he got for 7 days, since no gram neg has grown. Several days ago, I contacted his [facility] Oncologist, Dr. Cassandra Brunner who is covering for Dr. Ross for mos in [facility]. We discussed whether the port should be removed and another port implanted several days later and she said No. Then I called ID at who advised that we can try to save this port, by treating With IV antibiotics for 10 days. Then after stopping for 48 hours to recheck blood cultures and see if he still grows MRSE. If the MRSE regrows then the port needs to come out. The patient agreed with this plan, but would want the port emoved at a larger hospital, he said. Since yesterday 06/17, the middle of the port is bleeding externally and oozing and difficult to stop. Also nurses can also not inject into the port, it won't inject. We asked a [facility] nurse to evaluate his port. Today RN Angela came over from [facility] and said that it is doing this because it has been accessed so many times and the skin has a hole and he bleeds easily due to low plts. She advised not to use the port. (2) Pancytopenia Conclusion/Plan: Due to both chemotherapy (unknown type, that he is getting treatment from [facility]), as well as from the natural progression of his disease. He is neutropenic, anemic, and thrombocytopenic. Our [facility] clinic notes advise transfusion for Hgb <7 and plts <10. And they also want him premedicated with Benadryl very slow IV push and Tylenol 650 mg. The patient tells me he would like to Benadryl pushed very slowly because he gets very "woozy" when he goes too fast. I spoke to his daughter Vijaya (his DPOA) several days ago, who said that the patient has been resistant to think about end-of-life but that recently he agreed to start seeing Palliative Care. Vijaya wants to be present for the meeting and could get here no sooner than Tuesday 06/19. A consult for palliat nirali care will be placed today and I spoke to Denise Polanco today Plan: Transfuse as above Palliative Care Consult on 06/19 (3) Myelodysplasia (myelodysplastic syndrome) Conclusion/Plan: Terminal illness. Patient has been told by oncology over the last couple of months that there is nothing more they can offer. Patient enrolled himself in a experimental protocol at [facility] and gets iv therapy (he does not know if he has the treatment med or the control). ACP was held with him at the last hospitalization, last week and he is DNR. Still wants blood transfusions. Would like to in the hospital. Daughter wants to take him home to her house. He is currently refusing her offer. He cannot go home to since his is experiencing her own life crisis w binge drinking right now and would not be able to take care of him. He refuses Hospice because he would have to stop blood transfusions so he can't get to [facility], or SNF w hospice, or DOC/residential w hospice. Daughter is Vijaya Pham [phone] and she is POA. If he gets confused enough or debilitated enough she will take him home to be with her. (4) Chronic diarrhea Conclusion/Plan: He seems to be describing clear watery diarrhea. There is not even any stool or food in it. We suspect malabsorption. There is no blood in it so we do not think he is sloughing or bleeding into his colon because of his thrombocytopenia. Checked for C. difficile and result was neg Checked for cultures of Salmonella, Shigella, Campylobacter Plan: IV hydration when needed Lomotil ordered Started PPN for several days We advanced his diet to solids, since this is not episodic diarrhea, but has been ongoing for many mos or even year BMPdaily Qualifiers: Diarrhea type: unspecified type Qualified Code(s): R19.7 - Diarrhea, unspecified (5) Hx Hypertension Conclusion/Plan: BP was soft at 95/55. He was also tachycardic 115. Plan: We held off on giving him his usual home BP medications of telmisartan and hydrochlorothiazide. He got iv NS, then PPN for approx 2 days. Qualifiers: Hypertension type: primary hypertension Qualified Code(s): I10 - Essential (primary) hypertension (6) Type 2 diabetes mellitus, controlled Conclusion/Plan: He was not eating very much. Takes oral medication for DM when at home. Plan: ss Insulin coverage for glu checks ac and hs. Qualifiers: Diabetes mellitus halfway insulin use: without halfway use (7) Hypokalemia Conclusion/Plan: From poor intake and losses in chronic diarrhea. Plan: Will replace po and iv. Follow BMP daily (8) Hypomagnesemia Conclusion/Plan: From poor intake and losses in chronic diarrhea. Plan: Will replace po and iv. Follow Mg daily (9) Covid infection He tested positive for COVID at the [facility] on 1123. We ordered contact isolation when he was admitted. Since it has been over 2 weeks, I ordered a new COVID swab today. It came back positive still. He does have a cough and mild rhonchi R base, but no O2 desats, does not qualify for Remdesivir. Plan: Treat symptoms as needed Continue with respiratory isolation - Current Meds Current Meds: Current Medications Generic Name Dose Route Start Last Admin Trade Name Freq PRN Reason Stop Dose Admin Acetaminophen 650 mg 06/11/22 16:33 06/17/22 00:15 Acetaminophen 325 Mg Tablet PO 650 mg Q4HR PRN Administration Pain 1 to 4, or Fever Calcium Carbonate/Glycine 500 mg 06/15/22 17:00 06/18/22 16:54 Calcium Carbonate Chew 500 Mg Tablet PO 500 mg 0900,1700 ANUSHA Administration Diphenhydramine HCl 25 mg 06/11/22 22:53 06/17/22 00:15 Diphenhydramine Inj 50 Mg/Ml Vial IVP 25 mg Q6H PRN Administration Allergy Symptoms Diphenoxylate HCl/Atropine 1 tab 06/12/22 10:28 06/18/22 12:47 Diphenox/Atropine 2.5/0.025 Mg Tablet PO 1 tab Q4H PRN Administration Diarrhea Glipizide 5 mg 06/14/22 17:00 06/18/22 16:54 Glipizide 5 Mg Tablet PO 5 mg BIDWM ANUSHA Administration Insulin Glargine-yfgn 5 unit 06/14/22 10:54 06/18/22 08:15 Insulin Glargine-Yfgn 300 Unit/3 Ml Pen SUBQ 5 unit BID ANUSHA Administration Insulin Human Lispro 1 - 9 unit 06/14/22 21:00 12/05/22 16:56 Insulin Lispro 300 Unit/3 Ml Pen SUBQ 1 unit 0800,1200,1700,2100 ANUSHA Administration Protocol Magnesium Oxide 400 mg 06/15/22 12:00 06/18/22 12:42 Magnesium Oxide 400 Mg Tablet PO 400 mg 1200 ANUSHA Administration Ondansetron HCl 4 mg 06/11/22 16:33 06/14/22 13:23 Ondansetron Odt 4 Mg Tablet TL 4 mg Q6HR PRN Administration Nausea / Vomiting Ondansetron HCl 4 mg 06/11/22 16:33 06/14/22 22:50 Ondansetron 4 Mg/2 Ml Vial IVP 4 mg Q6HR PRN Administration Nausea / Vomiting Potassium Chloride 30 meq 06/17/22 08:00 06/18/22 08:14 Potassium Chloride 10 Meq Capsule PO 30 meq DAILYWM ANUSHA Administration Sodium Chloride 10 ml 06/11/22 16:33 06/14/22 22:50 Sodium Chloride Flush 0.9% 10 Ml Syringe IVP 10 ml PRN PRN Administration NEEDED PER PROVIDER ORDERS Sodium Chloride 10 ml 06/11/22 17:00 06/18/22 16:56 Sodium Chloride Flush 0.9% 10 Ml Syringe IVP 10 ml 0100,0900,1700 ANUSHA Administration - Lab Result Fish Bone Diagrams: 06/19/22 04:45 06/19/22 04:45 - Additional Planning My Orders: My Active Orders 06/18/22 11:56 Transfuse Platelet Pheresis Pk [RC] .ONCE Transfuse RBCs Leukoreduced [RC] .ONCE 06/19/22 Palliative Care Consult [CONS] Routine 06/19/22 05:00 BMP - BASIC METABOLIC PANEL [CHEM] DAILYLAB CBC - COMP BLD CT W/AUTO DIFF [HEME] DAILYLAB 06/19/22 06:00 Vancomycin Inj [Vancomycin] 1.75 gm Sodium Chloride 0.9% [Normal Saline 0.9%] 500 ml IV Q24H 06/20/22 05:00 BMP - BASIC METABOLIC PANEL [CHEM] DAILYLAB CBC - COMP BLD CT W/AUTO DIFF [HEME] DAILYLAB 06/21/22 05:00 BMP - BASIC METABOLIC PANEL [CHEM] DAILYLAB 06/21/22 05:30 VANCOMYCIN TROUGH [CHEM] Timed 06/22/22 05:00 BMP - BASIC METABOLIC PANEL [CHEM] DAILYLAB 06/23/22 05:00 BMP - BASIC METABOLIC PANEL [CHEM] DAILYLAB Subjective - Subjective Patient Reports: Resting Comfortably, Other (Unchanged diarrhea after meals, watery, not crampy. Same generalized weakness. Denies shortness of breath, has a slight cough.) Objective Vital Signs: Vital Signs - 24 hr 06/18/22 06/18/22 06/18/22 00:06 07:47 14:07 Temperature 36.7 C 36.8 C 37.1 C Heart Rate [ 90 73 93 Brachial] Respiratory 18 20 20 Rate Blood Pressure 121/49 L 132/64 H 134/55 H [Left Brachial artery] O2 Saturation 99 94 94 06/18/22 06/18/22 14:29 16:37 Temperature 37.2 C 36.9 C Heart Rate [ 96 87 Brachial] Respiratory 18 16 Rate Blood Pressure 132/57 H 129/62 [Left Brachial artery] O2 Saturation 96 Oxygen O2 Source Room air I&O (Last 24 Hrs): Intake and Output Totals x24h 06/16/22 06/17/22 06/18/22 23:59 23:59 23:59 Intake Total 2450 2642 375.05 Balance 2450 2642 375.05 General: Alert, Oriented x3, Other (Pale) HEENT: EOMI, Mucous membr. moist/pink Neck: Supple, No JVD Neuro: Alert, Non Focal Cardiovascular: Regular rate, No murmurs Respiratory: No respiratory distress, Rhonchi (R base rhonchi) Abdomen: Soft, No tenderness Extremities: No clubbing, Other (1+ edema. Skin of arms have many bruises (from infiltrated iv sites)) - Results Results: Laboratory Results WBC 6.3 x10^3/uL (4.8-10.8) 06/18/22 07:55 Corrected WBC Cancelled 06/12/22 09:12 RBC 2.10 10^6/uL (4.70-6.10) L 06/18/22 07:55 Hgb 6.1 g/dL (14.0-18.0) L* 06/18/22 07:55 Hct 18.0 % (42.0-52.0) L* 06/18/22 07:55 MCV 85.7 fL (80.0-94.0) 06/18/22 07:55 MCH 29.0 pg (27.0-31.0) 06/18/22 07:55 MCHC 33.9 g/dL (32.0-36.0) 06/18/22 07:55 RDW 14.6 % (12.0-15.0) 06/18/22 07:55 Plt Count 3 10^3/uL (130-450) L* 06/18/22 07:55 MPV 10.7 fL (7.4-11.4) 06/18/22 07:55 Neut # (Auto) Not Reportable 06/18/22 07:55 Lymph # (Auto) Not Reportable 06/18/22 07:55 [place] # (Auto) Not Reportable 06/18/22 07:55 Eos # (Auto) Not Reportable 06/18/22 07:55 Baso # (Auto) Not Reportable 06/18/22 07:55 Absolute Nucleated RBC Not Reportable 06/18/22 07:55 Total Counted 100 06/18/22 07:55 Band Neuts % (Manual) 3 % (0-10) 06/18/22 07:55 Reactive Lymphs % (Man) 3 % 06/15/22 06:35 Abnorm Lymph % (Manual) 0 % 06/18/22 07:55 Metamyelocytes % 7 % (-0) H 06/18/22 07:55 Myelocytes % 11 % (-0) H 06/17/22 06:30 Promyelocytes % 2 % (-0) H 06/17/22 06:30 Blast Cells % 2 % H* 06/13/22 06:00 Plasma Cell % (Manual) Cancelled 06/12/22 09:12 Other Cells % Cancelled 06/12/22 09:12 Nucleated RBC % Not Reportable 06/18/22 07:55 Neutrophils # (Manual) 2.5 10^3/uL (1.5-6.6) 06/18/22 07:55 Lymphocytes # (Manual) 2.3 10^3/uL (1.5-3.5) 06/18/22 07:55 Monocytes # (Manual) 0.6 10^3/uL (0.0-1.0) 06/18/22 07:55 Eosinophils # (Manual) 0.3 10^3/uL (0-0.7) 06/18/22 07:55 Basophils # (Manual) 0.1 10^3/uL (0-0.1) 06/18/22 07:55 Nucleated RBCs 2 % 06/18/22 07:55 Differential Comment MANUAL DIFFERENTIAL 06/18/22 07:55 Manual Slide Review Indicated 06/18/22 07:55 WBC Morphology NORMAL APPEARANCE (NORMAL) 06/18/22 07:55 Platelet Estimate DECREASED (<130,000) (NORMAL) 06/18/22 07:55 Platelet Morphology NORMAL APPEARANCE (NORMAL) 06/18/22 07:55 RBC Morph Micro Appear 1+ HYPOCHROMASIA (NORMAL) 06/18/22 07:55 Sodium 137 mmol/L (135-145) 06/17/22 06:30 Potassium 3.0 mmol/L (3.5-5.0) L 06/17/22 06:30 Chloride 101 mmol/L (101-111) 06/17/22 06:30 Carbon Dioxide 27 mmol/L (21-32) 06/17/22 06:30 Anion Gap 9.0 (6-13) 06/17/22 06:30 BUN 16 mg/dL (6-20) 06/17/22 06:30 Creatinine 0.9 mg/dL (0.6-1.2) 06/17/22 06:30 Estimated GFR (MDRD) 83 (>89) L 06/17/22 06:30 Glucose 139 mg/dL (70-100) H 06/17/22 06:30 POC Whole Bld Glucose 157 mg/dL (70 - 100) H 06/18/22 16:42 Calcium 8.2 mg/dL (8.5-10.3) L 06/17/22 06:30 Phosphorus 2.5 mg/dL (2.5-4.6) 06/17/22 06:30 Magnesium 1.4 mg/dL (1.7-2.8) L 06/17/22 06:30 Total Bilirubin 1.7 mg/dL (0.2-1.0) H 06/17/22 06:30 AST 10 IU/L (10-42) 06/17/22 06:30 ALT 10 IU/L (10-60) 06/17/22 06:30 Alkaline Phosphatase 48 IU/L (42-121) 06/17/22 06:30 Lactate Dehydrogenase 207 IU/L (91-225) 06/12/22 09:12 Total Protein 5.3 g/dL (6.7-8.2) L 06/17/22 06:30 Albumin 2.3 g/dL (3.2-5.5) L 06/17/22 06:30 Globulin 3.0 g/dL (2.1-4.2) 06/17/22 06:30 Albumin/Globulin Ratio 0.8 (1.0-2.2) L 06/17/22 06:30 Prealbumin 8 mg/dL (18-45) L 06/15/22 06:35 Triglycerides 129 mg/dL (-149) 06/15/22 06:35 Stl C. diff Tox B Gene NEGATIVE (NEGATIVE) 06/11/22 17:49 Last Dose Date 15041 06/18/22 07:55 Last Dose Time 0814 06/18/22 07:55 Vancomycin Trough 27.3 ug/mL (10.0-20.0) H* 06/18/22 07:55 SARS-CoV-2 (PCR) DETECTED A 06/18/22 08:25 Slides for Path Review Cancelled 06/12/22 09:12 Blood Type O NEGATIVE 06/16/22 11:53 Antibody Screen POSITIVE 06/16/22 11:53 Antibody Identification Inconclusive 06/16/22 11:53 JANET, IgG Specific POSITIVE 06/16/22 11:53 JANET, Polyspecific POSITIVE 06/16/22 11:53 JANET, C3d Specific NEGATIVE 06/16/22 11:53 Crossmatch See Detail 06/16/22 11:53 - Procedures Procedures: Procedures TRANSFUSE NONAUT RED BLOOD CELLS IN PERIPH VEIN, PERC (08/19/21)
[2022-06-18] MEDS: diphenhydrAMINE INJ 50 MG/ML VIAL IVP PRN (18:20)
[2022-06-18] MEDS: ACETAMINOPHEN 325 MG TABLET PO PRN (18:20)
[2022-06-19] MEDS: DIPHENOX/ATROPINE 2.5/0.025 MG TABLET PO PRN ×4 (00:42→21:51)
[2022-06-19] MEDS: SODIUM CHLORIDE FLUSH 0.9% 10 ML SYRINGE IVP SCH ×3 (00:43→21:50)
[2022-06-19 04:57] LABS: BASOPHILS % (AUTO) 0.8 %; EOSINOPHILS % (AUTO) 3.7 %; LYMPHOCYTES % (AUTO) 22.1 %; MEAN CORPUSCULAR HEMOGLOBIN 28.4 pg (27.0-31.0); MEAN CORPUSCULAR HGB CONC 33.2 g/dL (32.0-36.0); MEAN CORPUSCULAR VOLUME 85.8 fL (80.0-94.0); MEAN PLATELET VOLUME 9.9 fL (7.4-11.4); MONOCYTES % (AUTO) 24.1 %; NEUTROPHILS % (AUTO) 36.4 %; RED BLOOD COUNT 2.32 10^6/uL (4.70-6.10); WHITE BLOOD COUNT 8.9 x10^3/uL (4.8-10.8)
[2022-06-19 05:00] LABS: HCT - HEMATOCRIT 19.9 % (42.0-52.0); HGB - HEMOGLOBIN 6.6 g/dL (14.0-18.0); PLT - PLATELET COUNT 12 10^3/uL (130-450)
[2022-06-19 05:09] LABS: ABNORMAL LYMPHS % (MANUAL) 0 %
[2022-06-19 05:14] LABS: BAND NEUTROPHILS % (MANUAL) 2 %; BASOPHILS # (MANUAL) 0.4 10^3/uL (0-0.1); BASOPHILS % (MANUAL) 4 %; EOSINOPHILS # (MANUAL) 0.2 10^3/uL (0-0.7); LYMPHOCYTES # (MANUAL) 3.1 10^3/uL (1.5-3.5); LYMPHOCYTES % (MANUAL) 35 %; METAMYELOCYTES % (MANUAL) 3 %; MONOCYTES # (MANUAL) 1.6 10^3/uL (0.0-1.0); MYELOCYTES % (MANUAL) 1 %; NEUTROPHILS # (MANUAL) 3.3 10^3/uL (1.5-6.6)
[2022-06-19 05:15] LABS: DIFFERENTIAL COMMENT MANUAL DIFFERENTIAL; PLATELET ESTIMATE, MANUAL DECREASED (<130,000) (NORMAL); PLATELET MORPHOLOGY NORMAL APPEARANCE (NORMAL); RBC MORPHOLOGY (MULTIPLE) 1+ HYPOCHROMASIA (NORMAL); WBC MORPHOLOGY (MULTIPLE) NORMAL APPEARANCE (NORMAL)
[2022-06-19 05:28] LABS: CALCIUM 7.8 mg/dL (8.5-10.3); CREATININE 0.9 mg/dL (0.6-1.2)
[2022-06-19 05:29] LABS: POTASSIUM 2.5 mmol/L (3.5-5.0)
[2022-06-19] MEDS ORDERED: ACETAMINOPHEN 325 MG TABLET PO ONE (05:45)
[2022-06-19] MEDS: VANCOMYCIN INJ 1.75 GM in SODIUM CHLORIDE 0.9% 500 ML IV SCH (05:52)
[2022-06-19] MEDS ORDERED: diphenhydrAMINE 25 MG CAPSULE PO ONE (06:00)
[2022-06-19 07:44] LABS: MAGNESIUM 1.5 mg/dL (1.7-2.8); PHOSPHORUS 2.8 mg/dL (2.5-4.6)
--- NOTE | 2022-06-19 08:02 | PROVIDER PROGRESS NOTE ---
Subjective - Prog Note Date Prog Note Date: 06/19/22 Prog Note Time: 14:25 - Subjective Pt reports feeling: No change Subjective: I have inappropriately choosing an ICU note. He is not in the ICU. He is still on MedSurg this is not an ICU status note. He is still in the hospital with bacteremia from most likely an infected port entry area. We are not pulling the port at this time and we are using peripheral IVs. He continues to require blood products. So far he has had 3 units of leukocyte reduced packed red cells, and 2 units of leukocyte reduced platelets that are irradiated. The port site is bleeding. It is the same port he has had for about 10 years. Presumption is that the dam may have a small leak from multiple access over the years, or that his skin site is also leaking from multiple punctures Blood culture from the [facility] clinic June 11 is positive in the right arm and left port. Positive for staph epidermidis, methicillin-resistant. Stool culture from June 11 negative. Sputum culture gram stain from June 12 with squamous cell presents indicating a contaminated saliva specimen. Blood culture from June 17 without growth for 2 days. Long discussion with palliative care today, SANDRA Spencer. She has had previous encounters with this gentleman before. He does not want to even hear the word "hospice" mentioned in his presence. We discussed his prognosis. He is now transfusion dependent with his bone marrow making no blood for him. He has at the end of this disease. With his neutropenia by infection is more than likely. She spent quite some time in the room with him. She spoke to both the patient and his daughter Vijaya. Close to an hour conversation if not longer was held. Current Medications - Current Medications Current Medications: Active Medications Acetaminophen (Acetaminophen 325 Mg Tablet) 650 mg PO Q4HR PRN PRN Reason: Pain 1 to 4, or Fever Last Admin: 06/18/22 18:20 Dose: 650 mg Calcium Carbonate/Glycine (Calcium Carbonate Chew 500 Mg Tablet) 500 mg PO 0900,1700 ANUSHA Last Admin: 06/18/22 16:54 Dose: 500 mg Diphenhydramine HCl (Diphenhydramine Inj 50 Mg/Ml Vial) 25 mg IVP Q6H PRN PRN Reason: Allergy Symptoms Last Admin: 06/18/22 18:20 Dose: 25 mg Diphenoxylate HCl/Atropine (Diphenox/Atropine 2.5/0.025 Mg Tablet) 1 tab PO Q4H PRN PRN Reason: Diarrhea Last Admin: 06/19/22 00:42 Dose: 1 tab Glipizide (Glipizide 5 Mg Tablet) 5 mg PO BIDWM [facility] Last Admin: 06/18/22 16:54 Dose: 5 mg Vancomycin HCl 1.75 gm/ Sodium (Chloride) 500 mls @ 250 mls/hr IV Q24H [facility] Last Admin: 06/19/22 05:52 Dose: 250 mls/hr Potassium Chloride 40 meq/ (Dextrose/Sodium Chloride) 1,000 mls @ 100 mls/hr IV .Q10H [facility] Insulin Glargine-yfgn (Insulin Glargine-Yfgn 300 Unit/3 Ml Pen) 5 unit SUBQ BID [facility] Last Admin: 06/18/22 21:52 Dose: 5 unit Insulin Human Lispro (Insulin Lispro 300 Unit/3 Ml Pen) 1 - 9 unit SUBQ 0800,1200,1700,2100 [facility]; Protocol Last Admin: 06/18/22 21:51 Dose: Not Given Magnesium Oxide (Magnesium Oxide 400 Mg Tablet) 400 mg PO 1200 [facility] Last Admin: 06/18/22 12:42 Dose: 400 mg Ondansetron HCl (Ondansetron Odt 4 Mg Tablet) 4 mg TL Q6HR PRN PRN Reason: Nausea / Vomiting Last Admin: 06/14/22 13:23 Dose: 4 mg Ondansetron HCl (Ondansetron 4 Mg/2 Ml Vial) 4 mg IVP Q6HR PRN PRN Reason: Nausea / Vomiting Last Admin: 06/14/22 22:50 Dose: 4 mg Oxycodone HCl (Oxycodone 5 Mg Tablet) 5 mg PO Q4HR PRN PRN Reason: Pain 5 to 7 Potassium Chloride (Potassium Chloride 10 Meq Capsule) 30 meq PO DAILYWM [facility] Last Admin: 06/18/22 08:14 Dose: 30 meq Sodium Chloride (Sodium Chloride Flush 0.9% 10 Ml Syringe) 10 ml IVP PRN PRN PRN Reason: NEEDED PER PROVIDER ORDERS Last Admin: 06/14/22 22:50 Dose: 10 ml Sodium Chloride (Sodium Chloride Flush 0.9% 10 Ml Syringe) 10 ml IVP 0100,0900,1700 [facility] Last Admin: 06/19/22 00:43 Dose: 10 ml Telmisartan/Hydrochlorothiazid [Micardis Hct 80-25 mg Tablet] 1 tab PO DAILY 06/29/13 allopurinoL [Allopurinol] 300 mg PO DAILY 06/29/13 Omeprazole 20 mg PO DAILY 05/17/20 Acyclovir [Zovirax] 400 mg PO BID 06/06/20 Folic Acid 1 mg PO DAILY 01/24/21 metFORMIN [Glucophage] 1,000 mg PO BIDWM 08/20/21 Magnesium Oxide [Mag Ox] 400 mg PO DAILY 12/16/21 Ondansetron Odt [Zofran Odt] 4 mg TL Q4HR PRN 06/03/22 Potassium Chloride [K-Dur] 20 meq PO BID 06/12/22 Sulfamethox/Trimeth 800/160 [Bactrim Ds] 1 tab PO .MOTU 06/12/22 carvediloL [Coreg] 3.125 mg PO BIDWM 06/12/22 glipiZIDE [Glucotrol] 5 mg PO BIDWM 06/12/22 Objective - Vital Signs/Intake & Output Reviewed Vital Signs: Yes Vital Signs: Vital Signs Temp Pulse Resp BP Pulse Ox 06/19/22 07:41 36.8 C 86 20 113/61 98 Intake & Output: Intake & Output 06/16/22 06/17/22 06/18/22 06/19/22 23:59 23:59 23:59 23:59 Intake Total 2450 2642 1268.05 Balance 2450 2642 1268.05 - Objective General Appearance: positive: Alert, Other (Fatigued appearing, but alert, oriented, lucid) Eyes Bilateral: positive: PERRL, EOMI ENT: positive: No signs of dehydration Neck: positive: No JVD. negative: Stiff neck Respiratory: positive: Other (Short of breath with just trying to sit up in bed, and speak to me. Shallow Breaths, slightly panting at times). negative: Wheezes, Rales, Rhonchi Cardiovascular: positive: Regular rate & rhythm, Systolic murmur Abdomen: positive: Non-tender, No organomegaly, Nml bowel sounds, No distention Skin: positive: Warm, Dry, Other (Multiple multiple sites of bruising, no big skin tears) Extremities: positive: Full ROM, Pedal edema Neurologic/Psychiatric: positive: Oriented x3, CN's nml (2-12), Motor nml (But diffusely weak. Functionally very diminished) - Lab Results Fish Bones: 06/19/22 04:45 06/19/22 04:45 Other Labs: Lab Results x24hrs 06/19/22 06/19/22 06/19/22 Range/Units 07:39 04:45 04:45 WBC (4.8-10.8) x10^3/uL RBC (4.70-6.10) 10^6/uL Hgb (14.0-18.0) g/dL Hct (42.0-52.0) % MCV (80.0-94.0) fL MCH (27.0-31.0) pg MCHC (32.0-36.0) g/dL RDW (12.0-15.0) % Plt Count (130-450) 10^3/uL MPV (7.4-11.4) fL Neut # (Auto) Lymph # (Auto) Cass # (Auto) Eos # (Auto) Baso # (Auto) Absolute Nucleated RBC Total Counted Band Neuts % (Manual) (0 - 10) % Abnorm Lymph % (Manual) % Metamyelocytes % ( - 0) % Myelocytes % ( - 0) % Nucleated RBC % Neutrophils # (Manual) (1.5-6.6) 10^3/uL Lymphocytes # (Manual) (1.5-3.5) 10^3/uL Monocytes # (Manual) (0.0-1.0) 10^3/uL Eosinophils # (Manual) (0-0.7) 10^3/uL Basophils # (Manual) (0-0.1) 10^3/uL Nucleated RBCs % Differential Comment Manual Slide Review WBC Morphology (NORMAL) Platelet Estimate (NORMAL) Platelet Morphology (NORMAL) RBC Morph Micro Appear (NORMAL) Sodium 135 (135-145) mmol/L Potassium 2.5 L* (3.5-5.0) mmol/L Chloride 100 L (101-111) mmol/L Carbon Dioxide 25 (21-32) mmol/L Anion Gap 10.0 (6-13) BUN 20 (6-20) mg/dL Creatinine 0.9 (0.6-1.2) mg/dL Estimated GFR (MDRD) 83 L (>89) Glucose 140 H (70-100) mg/dL POC Whole Bld Glucose 130 H (70 - 100) mg/dL Calcium 7.8 L (8.5-10.3) mg/dL Phosphorus 2.8 (2.5-4.6) mg/dL Magnesium 1.5 L (1.7-2.8) mg/dL Last Dose Date Last Dose Time Vancomycin Trough (10.0-20.0) ug/mL SARS-CoV-2 (PCR) Blood Type Antibody Screen Antibody Identification JANET, IgG Specific JANET, Polyspecific JANET, C3d Specific Crossmatch 06/19/22 06/18/22 06/18/22 Range/Units 04:45 20:44 16:42 WBC 8.9 (4.8-10.8) x10^3/uL RBC 2.32 L (4.70-6.10) 10^6/uL Hgb 6.6 L* (14.0-18.0) g/dL Hct 19.9 L* (42.0-52.0) % MCV 85.8 (80.0-94.0) fL MCH 28.4 (27.0-31.0) pg MCHC 33.2 (32.0-36.0) g/dL RDW 15.0 (12.0-15.0) % Plt Count 12 L* (130-450) 10^3/uL MPV 9.9 (7.4-11.4) fL Neut # (Auto) Not Reportable Lymph # (Auto) Not Reportable Cass # (Auto) Not Reportable Eos # (Auto) Not Reportable Baso # (Auto) Not Reportable Absolute Nucleated RBC Not Reportable Total Counted 100 Band Neuts % (Manual) 2 (0 - 10) % Abnorm Lymph % (Manual) 0 % Metamyelocytes % 3 H ( - 0) % Myelocytes % 1 H ( - 0) % Nucleated RBC % Not Reportable Neutrophils # (Manual) 3.3 (1.5-6.6) 10^3/uL Lymphocytes # (Manual) 3.1 (1.5-3.5) 10^3/uL Monocytes # (Manual) 1.6 H (0.0-1.0) 10^3/uL Eosinophils # (Manual) 0.2 (0-0.7) 10^3/uL Basophils # (Manual) 0.4 H (0-0.1) 10^3/uL Nucleated RBCs % Differential Comment MANUAL DIFFERENTIAL Manual Slide Review WBC Morphology NORMAL APPEARANCE (NORMAL) Platelet Estimate DECREASED (<130,000) (NORMAL) Platelet Morphology NORMAL APPEARANCE (NORMAL) RBC Morph Micro Appear 1+ HYPOCHROMASIA (NORMAL) Sodium (135-145) mmol/L Potassium (3.5-5.0) mmol/L Chloride (101-111) mmol/L Carbon Dioxide (21-32) mmol/L Anion Gap (6-13) BUN (6-20) mg/dL Creatinine (0.6-1.2) mg/dL Estimated GFR (MDRD) (>89) Glucose (70-100) mg/dL POC Whole Bld Glucose 106 H 157 H (70 - 100) mg/dL Calcium (8.5-10.3) mg/dL Phosphorus (2.5-4.6) mg/dL Magnesium (1.7-2.8) mg/dL Last Dose Date Last Dose Time Vancomycin Trough (10.0-20.0) ug/mL SARS-CoV-2 (PCR) Blood Type Antibody Screen Antibody Identification JANET, IgG Specific JANET, Polyspecific JANET, C3d Specific Crossmatch 06/18/22 06/18/22 06/18/22 Range/Units 11:59 08:25 07:55 WBC (4.8-10.8) x10^3/uL RBC (4.70-6.10) 10^6/uL Hgb (14.0-18.0) g/dL Hct (42.0-52.0) % MCV (80.0-94.0) fL MCH (27.0-31.0) pg MCHC (32.0-36.0) g/dL RDW (12.0-15.0) % Plt Count (130-450) 10^3/uL MPV (7.4-11.4) fL Neut # (Auto) Lymph # (Auto) Cass # (Auto) Eos # (Auto) Baso # (Auto) Absolute Nucleated RBC Total Counted Band Neuts % (Manual) (0 - 10) % Abnorm Lymph % (Manual) % Metamyelocytes % ( - 0) % Myelocytes % ( - 0) % Nucleated RBC % Neutrophils # (Manual) (1.5-6.6) 10^3/uL Lymphocytes # (Manual) (1.5-3.5) 10^3/uL Monocytes # (Manual) (0.0-1.0) 10^3/uL Eosinophils # (Manual) (0-0.7) 10^3/uL Basophils # (Manual) (0-0.1) 10^3/uL Nucleated RBCs % Differential Comment Manual Slide Review WBC Morphology (NORMAL) Platelet Estimate (NORMAL) Platelet Morphology (NORMAL) RBC Morph Micro Appear (NORMAL) Sodium (135-145) mmol/L Potassium (3.5-5.0) mmol/L Chloride (101-111) mmol/L Carbon Dioxide (21-32) mmol/L Anion Gap (6-13) BUN (6-20) mg/dL Creatinine (0.6-1.2) mg/dL Estimated GFR (MDRD) (>89) Glucose (70-100) mg/dL POC Whole Bld Glucose 115 H (70 - 100) mg/dL Calcium (8.5-10.3) mg/dL Phosphorus (2.5-4.6) mg/dL Magnesium (1.7-2.8) mg/dL Last Dose Date Last Dose Time 0814 Vancomycin Trough 27.3 H* (10.0-20.0) ug/mL SARS-CoV-2 (PCR) DETECTED A Blood Type Antibody Screen Antibody Identification JANET, IgG Specific JANET, Polyspecific JANET, C3d Specific Crossmatch 06/18/22 06/16/22 Range/Units 07:55 11:53 WBC 6.3 (4.8-10.8) x10^3/uL RBC 2.10 L (4.70-6.10) 10^6/uL Hgb 6.1 L* (14.0-18.0) g/dL Hct 18.0 L* (42.0-52.0) % MCV 85.7 (80.0-94.0) fL MCH 29.0 (27.0-31.0) pg MCHC 33.9 (32.0-36.0) g/dL RDW 14.6 (12.0-15.0) % Plt Count 3 L* (130-450) 10^3/uL MPV 10.7 (7.4-11.4) fL Neut # (Auto) Not Reportable Lymph # (Auto) Not Reportable Cass # (Auto) Not Reportable Eos # (Auto) Not Reportable Baso # (Auto) Not Reportable Absolute Nucleated RBC Not Reportable Total Counted 100 Band Neuts % (Manual) 3 (0 - 10) % Abnorm Lymph % (Manual) 0 % Metamyelocytes % 7 H ( - 0) % Myelocytes % ( - 0) % Nucleated RBC % Not Reportable Neutrophils # (Manual) 2.5 (1.5-6.6) 10^3/uL Lymphocytes # (Manual) 2.3 (1.5-3.5) 10^3/uL Monocytes # (Manual) 0.6 (0.0-1.0) 10^3/uL Eosinophils # (Manual) 0.3 (0-0.7) 10^3/uL Basophils # (Manual) 0.1 (0-0.1) 10^3/uL Nucleated RBCs 2 % Differential Comment MANUAL DIFFERENTIAL Manual Slide Review Indicated WBC Morphology NORMAL APPEARANCE (NORMAL) Platelet Estimate DECREASED (<130,000) (NORMAL) Platelet Morphology NORMAL APPEARANCE (NORMAL) RBC Morph Micro Appear 1+ HYPOCHROMASIA (NORMAL) Sodium (135-145) mmol/L Potassium (3.5-5.0) mmol/L Chloride (101-111) mmol/L Carbon Dioxide (21-32) mmol/L Anion Gap (6-13) BUN (6-20) mg/dL Creatinine (0.6-1.2) mg/dL Estimated GFR (MDRD) (>89) Glucose (70-100) mg/dL POC Whole Bld Glucose (70 - 100) mg/dL Calcium (8.5-10.3) mg/dL Phosphorus (2.5-4.6) mg/dL Magnesium (1.7-2.8) mg/dL Last Dose Date Last Dose Time Vancomycin Trough (10.0-20.0) ug/mL SARS-CoV-2 (PCR) Blood Type O NEGATIVE Antibody Screen POSITIVE Antibody Identification Inconclusive JANET, IgG Specific POSITIVE JANET, Polyspecific POSITIVE JANET, C3d Specific NEGATIVE Crossmatch See Detail Assessment/Plan - Problem List (1) Bacteremia due to methicillin resistant Staphylococcus epidermidis Impression: 2 separate bld cx sites are growing Staph epi, which is Methicillin resistant. This is very likely the cause of his neutropenic fevers. He was started on vancomycin IV for MRSE. Cefepime was stopped after 7 days. The previous hospitalist on service did contact his [facility] Oncologist, Dr. Cassandra Brunner who is covering for Dr. Ross for mos in [facility]. They discussed whether the port should be removed and another port implanted several days later and she said No. Then the hospitalist called ID at who advised that we can try to save this port, by treating With IV antibiotics for 10 days. Then after sto pping for 48 hours to recheck blood cultures and see if he still grows MRSE. If the MRSE regrows then the port needs to come out. The patient agreed with this plan, but would want the port removed at a larger hospital, he said. Since 06/17, the middle of the port is bleeding externally and oozing and difficult to stop. Also nurses can also not inject into the port, it won't inject. We asked a [facility] nurse to evaluate his port. 06/18 MAC RN Angela came over from [facility] and said that it is doing this because it has been accessed so many times and the skin has a hole and he bleeds easily due to low plts. She advised not to use the port. Palliative care RN thoughtfully pointed out to both the daughter and the patient that this current problem, while a reason for admission, is not the overall problem for this man. His problem is his pancytopenia and myelodysplastic syndrome requiring blood transfusions every other day. It does not matter if we get successfully through this current treatment plan for this bacteria, he will most likely get another infection due to his neutropenia. She was trying to get the family to focus on the larger clinical problem In the meantime, we will continue to treat with IV antibiotics (2) Pancytopenia Conclusion/Plan: Due to both chemotherapy (unknown type, that he is getting treatment from [facility]), as well as from the natural progression of his disease. He is neutropenic, anemic, and thrombocytopenic. Our [facility] clinic notes advise transfusion for Hgb <7 and plts <10. And they also want him premedicated with Benadryl very slow IV push and Tylenol 650 mg. The patient tells me he would like to Benadryl pushed very slowly because he gets very "woozy" when he goes too fast. Plan: Transfuse as above Palliative Care Consult on 06/19 (3) Myelodysplasia (myelodysplastic syndrome) Conclusion/Plan: Terminal illness. Patient has been told by oncology over the last couple of mon ths that there is nothing more they can offer. Patient enrolled himself in a experimental protocol at [facility] and gets iv therapy (he does not know if he has the treatment med or the control). ACP was held with him at the last hospitalization, last week and he is DNR. Still wants blood transfusions. Would like to in the hospital. Daughter wants to take him home to her house. He is currently refusing her offer. He cannot go home to since his is experiencing her own life crisis w binge drinking right now and would not be able to take care of him. He refuses Hospice because he would have to stop blood transfusions so he can't get to [facility], or SNF w hospice, or [facility]/long-term w hospice. Daughter is Vijaya Pham [phone] and she is POA. If he gets confused enough or debilitated enough she will take him home to be with her. Today a long conversation was held with the palliative home care liaison. Not much was decided but he is more amenable to possibly going home. His intention is to in the hospital. Palliative care will continue to see him to neftali bentleyy tease out the issues (4) Chronic diarrhea Conclusion/Plan: He seems to be describing clear watery diarrhea. There is not even any stool or food in it. We suspect malabsorption. There is no blood in it so we do not think he is sloughing or bleeding into his colon because of his thrombocytopenia. Checked for C. difficile and result was neg Checked for cultures of Salmonella, Shigella, Campylobacter and are negative. Plan: IV hydration when needed Lomotil ordered Started PPN for several days We advanced his diet to solids, since this is not episodic diarrhea, but has been ongoing for many mos or even year BMPdaily Qualifiers: Diarrhea type: unspecified type Qualified Code(s): R19.7 - Diarrhea, unspecified (5) Hx Hypertension Conclusion/Plan: BP was soft at 95/55. He was also tachycardic 115. Plan: We held off on giving him his usual home BP medications of telmisartan and hydrochlorothiazide. He got iv NS, changed to iv PPN the evening of 06/17 Qualifiers: Hypertension type: primary hypertension Qualified Code(s): I10 - Essential (primary) hypertension (6) Type 2 diabetes mellitus, controlled Conclusion/Plan: He was not eating very much. Takes oral medication for DM when at home. Plan: ss Insulin coverage for glu checks ac and hs. Qualifiers: Diabetes mellitus mcfp insulin use: without moth exterminator use (7) Hypokalemia Conclusion/Plan: From poor intake and losses in chronic diarrhea. Plan: Will replace po and iv. Follow BMP daily (8) Hypomagnesemia Conclusion/Plan: From poor intake and losses in chronic diarrhea. Plan: Will replace po and iv. Follow Mg daily (9) Covid infection He tested positive for COVID at the [facility] clinic on 06/07. We ordered contact isolation when he was admitted. Since it has been over 2 weeks, a new COVID swab qA SIBW 06/18, It came back positive still. He does have a cough and mild rhonchi R base, but no O2 desats, does not qualify for Remdesivir. Plan: Treat symptoms as needed Continue with respiratory isolation (5) Diarrhea Qualifiers: Qualified Code(s): R19.7 - Diarrhea, unspecified
[2022-06-19] MEDS: POTASSIUM CHLORIDE 10 MEQ CAPSULE PO SCH (08:25)
[2022-06-19] MEDS: CALCIUM CARBONATE CHEW 500 MG TABLET PO SCH ×2 (08:25→17:33)
[2022-06-19] MEDS: glipiZIDE 5 MG TABLET PO SCH ×2 (08:25→17:32)
[2022-06-19] MEDS: INSULIN GLARGINE-YFGN 300 UNIT/3 ML PEN SUBQ SCH ×2 (08:26→21:51)
[2022-06-19] MEDS: INSULIN LISPRO 300 UNIT/3 ML PEN SUBQ SCH ×4 (08:26→21:50)
[2022-06-19] MEDS: POTASSIUM CHLORIDE INJ 40 MEQ in DEXTROSE 5%-0.45% NACL 980 ML IV SCH (14:29)
[2022-06-19] MEDS: MAGNESIUM OXIDE 400 MG TABLET PO SCH (14:30)
--- NOTE | 2022-06-19 15:12 | CONSULTATION NOTE ---
Palliative Care Follow Up - Referral Referring Provider: Dr. 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 Patient has been comanaged between Dr. Romano and Dr. Umair Leblanc at [facility] in [place]Patient originally was on in multiple different medications, including [facility] clinical trial of phase 1, and restarted yet another [facility] drug 04/30/2022. He has been transfusion dependent, with this worsening, currently requiring blood transfusions and platelets every other day. He receives special order packed red blood cells as well as HLA typing matched platelets. He is currently hospitalized with bacteremia most likely from infected port entry area. They are currently only using peripheral IVs, unfortunately port site continues to ooze. He has had the same port for over 10 years.His blood culture is positive in the right arm and left port for staph epidermis methylene resistant.Patient is to receive IV antibiotics for 10 days, then stop for 48 hours to recheck blood cultures, if TORIBIO regrows and the port needs to come out. This is very difficult in the context already is challenged to find IV access. Patient is currently receiving transfusion for hemoglobin of 6.6, his platelets are currently 12,000, but does have low K at 2.5 and magnesium of 1.5. Palliative care has been asked to meet with patient secondary to defining goals of care, patient does understand the seriousness of his illness, but has been quite resistant to both palliative care and hospice conversations. I did meet initially with patient in December 2021. And he was quite clear did not want to have further discussions regarding advance care planning or symptom management. Patient is been quite private about his feelings regarding this. He does have a very supportive daughter Vijaya, is helping him navigate his decisions and end-of-life care. Palliative care meeting with family daughter Vijaya and mys elf and patient. Past Medical History: Patient originally with history of CLL/SLL since , diabetes, hypertension, sleep apnea, pulmonary emboli 2006, DVT left leg 2005, CAD, and MDS. Social History - Living Situation Living arrangement: At home Living Situation: With spouse/s.o. Support System: Patient is to his of 50 years, has been having significant difficulties dealing with patient's eminent decline, but daughter says she is coming to a place of understanding. He has a son in [place], and daughter Vijaya in [place]. 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 Daughter has history as a EMT, she is a applied psychology teacher, and can take time off to be a caregiver.They have lived on [facility] since the 70s. Medications/Allergies - Medications Active Medication List: Active Medications Acetaminophen (Acetaminophen 325 Mg Tablet) 650 mg PO Q4HR PRN PRN Reason: Pain 1 to 4, or Fever Last Admin: 06/18/22 18:20 Dose: 650 mg Calcium Carbonate/Glycine (Calcium Carbonate Chew 500 Mg Tablet) 500 mg PO 0900,1700 [facility] Last Admin: 06/19/22 08:25 Dose: 500 mg Diphenhydramine HCl (Diphenhydramine Inj 50 Mg/Ml Vial) 25 mg IVP Q6H PRN PRN Reason: Allergy Symptoms Last Admin: 06/18/22 18:20 Dose: 25 mg Diphenoxylate HCl/Atropine (Diphenox/Atropine 2.5/0.025 Mg Tablet) 1 tab PO Q4H PRN PRN Reason: Diarrhea Last Admin: 06/19/22 12:14 Dose: 1 tab Glipizide (Glipizide 5 Mg Tablet) 5 mg PO BIDWM [facility] Last Admin: 06/19/22 08:25 Dose: 5 mg Vancomycin HCl 1.75 gm/ Sodium (Chloride) 500 mls @ 250 mls/hr IV Q24H [facility] Last Admin: 06/19/22 05:52 Dose: 250 mls/hr Potassium Chloride 40 meq/ (Dextrose/Sodium Chloride) 1,000 mls @ 100 mls/hr IV .Q10H [facility] Last Admin: 06/19/22 14:29 Dose: 100 mls/hr Insulin Glargine-yfgn (Insulin Glargine-Yfgn 300 Unit/3 Ml Pen) 5 unit SUBQ BID [facility] Last Admin: 06/19/22 08:26 Dose: 5 unit Insulin Human Lispro (Insulin Lispro 300 Unit/3 Ml Pen) 1 - 9 unit SUBQ 0800,1200,1700,2100 [facility]; Protocol Last Admin: 06/19/22 11:58 Dose: 1 unit Magnesium Oxide (Magnesium Oxide 400 Mg Tablet) 400 mg PO 1200 [facility] Last Admin: 06/19/22 14:30 Dose: 400 mg Ondansetron HCl (Ondansetron Odt 4 Mg Tablet) 4 mg TL Q6HR PRN PRN Reason: Nausea / Vomiting Last Admin: 06/14/22 13:23 Dose: 4 mg Ondansetron HCl (Ondansetron 4 Mg/2 Ml Vial) 4 mg IVP Q6HR PRN PRN Reason: Nausea / Vomiting Last Admin: 06/14/22 22:50 Dose: 4 mg Oxycodone HCl (Oxycodone 5 Mg Tablet) 5 mg PO Q4HR PRN PRN Reason: Pain 5 to 7 Potassium Chloride (Potassium Chloride 10 Meq Capsule) 30 meq PO DAILYWM [facility] Last Admin: 06/19/22 08:25 Dose: 30 meq Sodium Chloride (Sodium Chloride Flush 0.9% 10 Ml Syringe) 10 ml IVP PRN PRN PRN Reason: NEEDED PER PROVIDER ORDERS Last Admin: 06/14/22 22:50 Dose: 10 ml Sodium Chloride (Sodium Chloride Flush 0.9% 10 Ml Syringe) 10 ml IVP 0100,0900,1700 [facility] Last Admin: 06/19/22 14:29 Dose: 10 ml Telmisartan/Hydrochlorothiazid [Micardis Hct 80-25 mg Tablet] 1 tab PO DAILY 06/29/13 allopurinoL [Allopurinol] 300 mg PO DAILY 06/29/13 Omeprazole 20 mg PO DAILY 05/17/20 Acyclovir [Zovirax] 400 mg PO BID 06/06/20 Folic Acid 1 mg PO DAILY 01/24/21 metFORMIN [Glucophage] 1,000 mg PO BIDWM 08/20/21 Magnesium Oxide [Mag Ox] 400 mg PO DAILY 12/16/21 Ondansetron Odt [Zofran Odt] 4 mg TL Q4HR PRN 06/03/22 Potassium Chloride [K-Dur] 20 meq PO BID 06/12/22 Sulfamethox/Trimeth 800/160 [Bactrim Ds] 1 tab PO .MOTU 06/12/22 carvediloL [Coreg] 3.125 mg PO BIDWM 06/12/22 glipiZIDE [Glucotrol] 5 mg PO BIDWM 06/12/22 - Allergies Allergies/Adverse Reactions: Allergies Allergy/AdvReac Type Severity Reaction Status Date / Time adhesive tape Allergy Rash Verified 05/29/22 10:05 Review of Systems - Constitutional Constitutional: reports: Fatigue, Chills, Weakness - Ears, Nose & Throat Ears, Nose & Throat: reports: Hearing loss, Hearing aids, Hoarseness - Cardiovascular Cardiovascular: reports: Exertional dyspnea - Respiratory Respiratory: reports: Cough, Other (COVID positive) - Gastrointestinal Gastrointestinal: reports: Diarrhea - Musculoskeletal Musculoskeletal: reports: Muscle weakness - Integumentary Integumentary: reports: Dryness, Other (bruising) - Neurological Neurological: reports: General weakness. denies: Dizziness - Psychiatric Psychiatric: denies: Depression, Anxiety - Endocrine Endocrine: reports: Diabetes type 2, Intolerance to cold - Hematologic/Lymphatic Hematologic/Lymph: reports: Anemia, Bruising, Petechiae, Bleeding tendencies, Recurrent infections - All Other Systems All Other Systems: reports: Other (limited ROS) Physical Exam - Vital Signs Vital Signs: Vital Signs x48h Temp Pulse Resp BP Pulse Ox 06/19/22 14:12 36.5 C 90 18 138/60 H 93 06/19/22 11:14 36.5 C 81 18 130/61 94 06/19/22 10:57 36.3 C L 88 20 140/66 H 96 06/19/22 07:41 36.8 C 86 20 113/61 98 - Physical Exam General Appearance: positive: No acute distress, Alert, Anxious (with introduction of palliative care; relaxed through visit) Eyes Bilateral: positive: Conjunctivae nml Neck: positive: Trachea midline Respiratory: positive: Other (cough/moist and prod through visit) Abdomen: positive: Obese Skin: positive: Pallor, Bruising Extremities: positive: Full ROM, Pedal edema Neurologic/Psychiatric: positive: Oriented x3, Flat affect Palliative Care - POLST Patient has POLST: Yes POLST Status: DNR, Selective Treatment Pain: No pain Performance Status: Patient surprisingly is ambulatory, using pole and standby assist. High risk for falls and sequela of such. - Palliative Care Discussion: When asked patient his understanding of his current situation, does not feel like he is going to leave the hospital alive. He does understand the seriousness of his current dilemma. Was very reluctant to have palliative care initiate conversation, but did engage and participated as his daughter asked more questions and more questions was asked of him. We did discuss in the context of his current situation, that prognosis of course was poor, given his transfusion dependence, and need for support as well as the seriousness of his infection, and need for IV access. Provided the information most likely patient if to quit transfusions would be somewhat like a car running out of gas, but certainly at risk for bleeding. Would expect patient to functionally decline, sleep more, and if any discomfort related to his breathlessness or situation, we would use comfort medications to alleviate suffering. We also discussed even if infection treated, would most likely recur again and most blood cancers end-of-life event is infection. Reiterated again we could keep him comfortable with comfort medications. Patient is "taking a day at a time". Did ask though in response to conversation with daughter, where he would like to be for end-of-life. Daughter had multiple questions regarding "hospice", but done in the context of a support team that would provide which she and her mother would need further support and training in the home if they were to bring him home. This includes comfort medications, equipment, training with the nurses and aides for care of the patient as her declining, as well as they would become the 911. When asked patient directly where he would like to be, he would like to " in the hospital" and then said one of those hospice units at a hospital. The rationale for this was he did not want his to worry or remember where he in the home. Daughter is unsure about if would want him in a unit versus home, they will continue the conversation. With information about home hospice provided today. We discussed there were hospice units, though I suspect patient would not meet GIP though he may with his lack of transfusion support and stopping antibiotics. Discussed that there is [place] hospice unit, as well as [place] hospice and [facility] hospice house. We will have social work see what openings are, but reviewed that it would be private pay, hospice does not pay for room and board. We discussed that patient could make the decision at any time to focus on comfort and be with family and make that transition, or the decision would be made due to his competing serious illnesses of MDS and infection and there may be no further interventions to be able to offer.Discussed at this time will be good to start a discharge plan, for that transition point. When asked what else he has left to do, he felt the list was still long, including planning for his and end-of-life plans. Patient does have a POLST with DN AR/DNI and I and selective treatments on record signed by Stephanie Morales 06/11 2022. With the focus for comfort Results - Lab Results Lab results reviewed: Yes Fish Bones: 06/19/22 04:45 06/19/22 04:45 Lab and Imaging Results: Lab Results x24hrs 06/19/22 06/19/22 06/19/22 Range/Units 11:30 07:39 04:45 WBC (4.8-10.8) x10^3/uL RBC (4.70-6.10) 10^6/uL Hgb (14.0-18.0) g/dL Hct (42.0-52.0) % MCV (80.0-94.0) fL MCH (27.0-31.0) pg MCHC (32.0-36.0) g/dL RDW (12.0-15.0) % Plt Count (130-450) 10^3/uL MPV (7.4-11.4) fL Neut # (Auto) Lymph # (Auto) Terrell # (Auto) Eos # (Auto) Baso # (Auto) Absolute Nucleated RBC Total Counted Band Neuts % (Manual) (0 - 10) % Abnorm Lymph % (Manual) % Metamyelocytes % ( - 0) % Myelocytes % ( - 0) % Nucleated RBC % Neutrophils # (Manual) (1.5-6.6) 10^3/uL Lymphocytes # (Manual) (1.5-3.5) 10^3/uL Monocytes # (Manual) (0.0-1.0) 10^3/uL Eosinophils # (Manual) (0-0.7) 10^3/uL Basophils # (Manual) (0-0.1) 10^3/uL Differential Comment WBC Morphology (NORMAL) Platelet Estimate (NORMAL) Platelet Morphology (NORMAL) RBC Morph Micro Appear (NORMAL) Sodium (135-145) mmol/L Potassium (3.5-5.0) mmol/L Chloride (101-111) mmol/L Carbon Dioxide (21-32) mmol/L Anion Gap (6-13) BUN (6-20) mg/dL Creatinine (0.6-1.2) mg/dL Estimated GFR (MDRD) (>89) Glucose (70-100) mg/dL POC Whole Bld Glucose 142 H 130 H (70 - 100) mg/dL Calcium (8.5-10.3) mg/dL Phosphorus 2.8 (2.5-4.6) mg/dL Magnesium 1.5 L (1.7-2.8) mg/dL Blood Type Antibody Screen Antibody Identification JANET, IgG Specific JANET, Polyspecific JANET, C3d Specific Crossmatch 06/19/22 06/19/22 06/18/22 Range/Units 04:45 04:45 20:44 WBC 8.9 (4.8-10.8) x10^3/uL RBC 2.32 L (4.70-6.10) 10^6/uL Hgb 6.6 L* (14.0-18.0) g/dL Hct 19.9 L* (42.0-52.0) % MCV 85.8 (80.0-94.0) fL MCH 28.4 (27.0-31.0) pg MCHC 33.2 (32.0-36.0) g/dL RDW 15.0 (12.0-15.0) % Plt Count 12 L* (130-450) 10^3/uL MPV 9.9 (7.4-11.4) fL Neut # (Auto) Not Reportable Lymph # (Auto) Not Reportable Terrell # (Auto) Not Reportable Eos # (Auto) Not Reportable Baso # (Auto) Not Reportable Absolute Nucleated RBC Not Reportable Total Counted 100 Band Neuts % (Manual) 2 (0 - 10) % Abnorm Lymph % (Manual) 0 % Metamyelocytes % 3 H ( - 0) % Myelocytes % 1 H ( - 0) % Nucleated RBC % Not Reportable Neutrophils # (Manual) 3.3 (1.5-6.6) 10^3/uL Lymphocytes # (Manual) 3.1 (1.5-3.5) 10^3/uL Monocytes # (Manual) 1.6 H (0.0-1.0) 10^3/uL Eosinophils # (Manual) 0.2 (0-0.7) 10^3/uL Basophils # (Manual) 0.4 H (0-0.1) 10^3/uL Differential Comment MANUAL DIFFERENTIAL WBC Morphology NORMAL APPEARANCE (NORMAL) Platelet Estimate DECREASED (<130,000) (NORMAL) Platelet Morphology NORMAL APPEARANCE (NORMAL) RBC Morph Micro Appear 1+ HYPOCHROMASIA (NORMAL) Sodium 135 (135-145) mmol/L Potassium 2.5 L* (3.5-5.0) mmol/L Chloride 100 L (101-111) mmol/L Carbon Dioxide 25 (21-32) mmol/L Anion Gap 10.0 (6-13) BUN 20 (6-20) mg/dL Creatinine 0.9 (0.6-1.2) mg/dL Estimated GFR (MDRD) 83 L (>89) Glucose 140 H (70-100) mg/dL POC Whole Bld Glucose 106 H (70 - 100) mg/dL Calcium 7.8 L (8.5-10.3) mg/dL Phosphorus (2.5-4.6) mg/dL Magnesium (1.7-2.8) mg/dL Blood Type Antibody Screen Antibody Identification JANET, IgG Specific JANET, Polyspecific JANET, C3d Specific Crossmatch 06/18/22 06/16/22 Range/Units 16:42 11:53 WBC (4.8-10.8) x10^3/uL RBC (4.70-6.10) 10^6/uL Hgb (14.0-18.0) g/dL Hct (42.0-52.0) % MCV (80.0-94.0) fL MCH (27.0-31.0) pg MCHC (32.0-36.0) g/dL RDW (12.0-15.0) % Plt Count (130-450) 10^3/uL MPV (7.4-11.4) fL Neut # (Auto) Lymph # (Auto) Terrell # (Auto) Eos # (Auto) Baso # (Auto) Absolute Nucleated RBC Total Counted Band Neuts % (Manual) (0 - 10) % Abnorm Lymph % (Manual) % Metamyelocytes % ( - 0) % Myelocytes % ( - 0) % Nucleated RBC % Neutrophils # (Manual) (1.5-6.6) 10^3/uL Lymphocytes # (Manual) (1.5-3.5) 10^3/uL Monocytes # (Manual) (0.0-1.0) 10^3/uL Eosinophils # (Manual) (0-0.7) 10^3/uL Basophils # (Manual) (0-0.1) 10^3/uL Differential Comment WBC Morphology (NORMAL) Platelet Estimate (NORMAL) Platelet Morphology (NORMAL) RBC Morph Micro Appear (NORMAL) Sodium (135-145) mmol/L Potassium (3.5-5.0) mmol/L Chloride (101-111) mmol/L Carbon Dioxide (21-32) mmol/L Anion Gap (6-13) BUN (6-20) mg/dL Creatinine (0.6-1.2) mg/dL Estimated GFR (MDRD) (>89) Glucose (70-100) mg/dL POC Whole Bld Glucose 157 H (70 - 100) mg/dL Calcium (8.5-10.3) mg/dL Phosphorus (2.5-4.6) mg/dL Magnesium (1.7-2.8) mg/dL Blood Type O NEGATIVE Antibody Screen POSITIVE Antibody Identification Inconclusive JANET, IgG Specific POSITIVE JANET, Polyspecific POSITIVE JANET, C3d Specific NEGATIVE Crossmatch See Detail Impression and Recommendations - Palliative Care Impression: This is a 72-year-old gentleman transfusion dependent MDS, with worsening counts, now hospitalized for bacteremia due to methylene resistant Staph epidermidis. Patient with poor venous access, and poor prognosis.Patient with complex social situation, and ambivalence regarding setting more definitive goals of care. Palliative care meeting with patient and daughter, to assist with defining goals of care, setting priorities, and anticipatory guidance. Recommendations/Counseling Done: 1. MDS. Patient with poor prognosis related to worsening neutropenia, anemia and thrombocytopenia. Now presenting with sequela of his neutropenia, with bacteremia infection. Patient's transfusion support is significant, and sustainable for prolonged period of time as well as likelihood of recovery from recurrent infections poor. Patient does express wishes to be in a "hospice unit" situation for end-of-life, daughter struggling with patient's decision in the context would like to support him at home but wanting to support his wishes as well. Counseling is provided regarding the continuum of care, expected decline and disease trajectory, as well as continuum of care with hospice either placement or at home.Have offered further counseling to , support for patient if accepting, and continued involvement or follow-up with daughter as sophia eded. If patient becomes nondecisional, Vijaya is the DPOA, and will need support and transition plan. 75 minutes with greater than 50% of this done in counseling regarding disease trajectory, prognosis, continuum of care, options and planning for end-of-life. Coordination of care with hospitalist and social work.
[2022-06-20] MEDS: POTASSIUM CHLORIDE INJ 40 MEQ in DEXTROSE 5%-0.45% NACL 980 ML IV SCH ×2 (00:41→12:28)
[2022-06-20] MEDS: SODIUM CHLORIDE FLUSH 0.9% 10 ML SYRINGE IVP SCH ×3 (00:45→17:18)
[2022-06-20] MEDS: DIPHENOX/ATROPINE 2.5/0.025 MG TABLET PO PRN ×2 (04:24→12:19)
[2022-06-20 04:48] LABS: BASOPHILS % (AUTO) 1.2 %; EOSINOPHILS % (AUTO) 3.3 %; HGB - HEMOGLOBIN 7.4 g/dL (14.0-18.0); LYMPHOCYTES % (AUTO) 22.3 %; MEAN CORPUSCULAR HEMOGLOBIN 28.8 pg (27.0-31.0); MEAN CORPUSCULAR HGB CONC 33.6 g/dL (32.0-36.0); MEAN CORPUSCULAR VOLUME 85.6 fL (80.0-94.0); MEAN PLATELET VOLUME 13.2 fL (7.4-11.4); MONOCYTES % (AUTO) 25.8 %; NEUTROPHILS % (AUTO) 37.4 %; RED BLOOD COUNT 2.57 10^6/uL (4.70-6.10); RED CELL DISTRIBUTION WIDTH 14.6 % (12.0-15.0); WHITE BLOOD COUNT 10.9 x10^3/uL (4.8-10.8)
[2022-06-20 04:58] LABS: CALCIUM 7.9 mg/dL (8.5-10.3); CREATININE 0.9 mg/dL (0.6-1.2); POTASSIUM 2.8 mmol/L (3.5-5.0)
[2022-06-20 05:06] LABS: PLT - PLATELET COUNT 4 10^3/uL (130-450)
[2022-06-20 05:08] LABS: ABNORMAL LYMPHS % (MANUAL) 0 %
[2022-06-20 05:13] LABS: BAND NEUTROPHILS % (MANUAL) 5 %; BASOPHILS # (MANUAL) 0.3 10^3/uL (0-0.1); BASOPHILS % (MANUAL) 3 %; EOSINOPHILS # (MANUAL) 0.8 10^3/uL (0-0.7); LYMPHOCYTES % (MANUAL) 37 %; METAMYELOCYTES % (MANUAL) 1 %; MONOCYTES # (MANUAL) 2.1 10^3/uL (0.0-1.0); MYELOCYTES % (MANUAL) 1 %; NEUTROPHILS # (MANUAL) 3.5 10^3/uL (1.5-6.6)
[2022-06-20 05:14] LABS: RBC MORPHOLOGY (MULTIPLE) 1+ HYPOCHROMASIA (NORMAL)
[2022-06-20 05:15] LABS: DIFFERENTIAL COMMENT MANUAL DIFFERENTIAL; PLATELET ESTIMATE, MANUAL DECREASED (<130,000) (NORMAL); PLATELET MORPHOLOGY NORMAL APPEARANCE (NORMAL); WBC MORPHOLOGY (MULTIPLE) NORMAL APPEARANCE (NORMAL)
[2022-06-20] MEDS: VANCOMYCIN INJ 1.75 GM in SODIUM CHLORIDE 0.9% 500 ML IV SCH (06:21)
[2022-06-20] MEDS: INSULIN GLARGINE-YFGN 300 UNIT/3 ML PEN SUBQ SCH (08:37)
[2022-06-20] MEDS: INSULIN LISPRO 300 UNIT/3 ML PEN SUBQ SCH ×3 (08:37→17:08)
[2022-06-20] MEDS: POTASSIUM CHLORIDE 10 MEQ CAPSULE PO SCH (08:37)
[2022-06-20] MEDS: glipiZIDE 5 MG TABLET PO SCH ×2 (08:37→17:18)
[2022-06-20] MEDS: CALCIUM CARBONATE CHEW 500 MG TABLET PO SCH ×2 (08:38→17:18)
[2022-06-20] MEDS: MAGNESIUM OXIDE 400 MG TABLET PO SCH (12:19)
[2022-06-20 16:51] VITALS: BP 148/68
--- NOTE | 2022-06-20 17:28 | PROVIDER PROGRESS NOTE ---
Progress Note June 20, 2022 5:23 PM We are navigating with delicacy. On the one hand we have a patient who has bacteremia, and transfusion dependent pancytopenia. On the other hand we have a patient whose disease status is terminal and no longer really able to be treated. I have spoken to him at length several times about the futility of continuing to transfuse in the face of a terminal illness. But he is just not ready to . He has every expectation of dying in the hospital even though we have spoken at length that this is probably not an appropriate use of resources. He has been stable with regards to fever and vital signs. Depending on his appetite he will either need 0% or 100% of his food. Breakfast appears to be his favorite meal. There is no hemoptysis, abdominal pain, hematuria. He has mild pleuritic chest pain. He hurts all over. Active Medications Acetaminophen (Acetaminophen 325 Mg Tablet) 650 mg PO Q4HR PRN PRN Reason: Pain 1 to 4, or Fever Last Admin: 06/18/22 18:20 Dose: 650 mg Calcium Carbonate/Glycine (Calcium Carbonate Chew 500 Mg Tablet) 500 mg PO 0900,1700 [facility] Last Admin: 06/20/22 17:18 Dose: 500 mg Diphenhydramine HCl (Diphenhydramine Inj 50 Mg/Ml Vial) 25 mg IVP Q6H PRN PRN Reason: Allergy Symptoms Last Admin: 06/18/22 18:20 Dose: 25 mg Diphenoxylate HCl/Atropine (Diphenox/Atropine 2.5/0.025 Mg Tablet) 1 tab PO Q4H PRN PRN Reason: Diarrhea Last Admin: 06/20/22 12:19 Dose: 1 tab Glipizide (Glipizide 5 Mg Tablet) 5 mg PO BIDWM [facility] Last Admin: 06/20/22 17:18 Dose: 5 mg Vancomycin HCl 1.75 gm/ Sodium (Chloride) 500 mls @ 250 mls/hr IV Q24H [facility] Last Infusion: 06/20/22 08:21 Dose: Infused Potassium Chloride 40 meq/ (Dextrose/Sodium Chloride) 1,000 mls @ 100 mls/hr IV .Q10H [facility] Last Admin: 06/20/22 12:28 Dose: 100 mls/hr Insulin Glargine-yfgn (Insulin Glargine-Yfgn 300 Unit/3 Ml Pen) 5 unit SUBQ BID [facility] Last Admin: 06/20/22 08:37 Dose: 5 unit Insulin Human Lispro (Insulin Lispro 300 Unit/3 Ml Pen) 1 - 9 unit SUBQ 0800,1200,1700,2100 [facility]; Protocol Last Admin: 06/20/22 17:08 Dose: Not Given Magnesium Oxide (Magnesium Oxide 400 Mg Tablet) 400 mg PO 1200 [facility] Last Admin: 06/20/22 12:19 Dose: 400 mg Ondansetron HCl (Ondansetron Odt 4 Mg Tablet) 4 mg TL Q6HR PRN PRN Reason: Nausea / Vomiting Last Admin: 06/14/22 13:23 Dose: 4 mg Ondansetron HCl (Ondansetron 4 Mg/2 Ml Vial) 4 mg IVP Q6HR PRN PRN Reason: Nausea / Vomiting Last Admin: 06/14/22 22:50 Dose: 4 mg Oxycodone HCl (Oxycodone 5 Mg Tablet) 5 mg PO Q4HR PRN PRN Reason: Pain 5 to 7 Potassium Chloride (Potassium Chloride 10 Meq Capsule) 30 meq PO DAILYWM [facility] Last Admin: 06/20/22 08:37 Dose: 30 meq Sodium Chloride (Sodium Chloride Flush 0.9% 10 Ml Syringe) 10 ml IVP PRN PRN PRN Reason: NEEDED PER PROVIDER ORDERS Last Admin: 06/14/22 22:50 Dose: 10 ml Sodium Chloride (Sodium Chloride Flush 0.9% 10 Ml Syringe) 10 ml IVP 0100,09 00,1700 [facility] Last Admin: 06/20/22 17:18 Dose: Not Given Telmisartan/Hydrochlorothiazid [Micardis Hct 80-25 mg Tablet] 1 tab PO DAILY 06/29/13 allopurinoL [Allopurinol] 300 mg PO DAILY 06/29/13 Omeprazole 20 mg PO DAILY 05/17/20 Acyclovir [Zovirax] 400 mg PO BID 06/06/20 Folic Acid 1 mg PO DAILY 01/24/21 metFORMIN [Glucophage] 1,000 mg PO BIDWM 08/20/21 Magnesium Oxide [Mag Ox] 400 mg PO DAILY 12/16/21 Ondansetron Odt [Zofran Odt] 4 mg TL Q4HR PRN 06/03/22 Potassium Chloride [K-Dur] 20 meq PO BID 06/12/22 Sulfamethox/Trimeth 800/160 [Bactrim Ds] 1 tab PO .MOTU 06/12/22 carvediloL [Coreg] 3.125 mg PO BIDWM 06/12/22 glipiZIDE [Glucotrol] 5 mg PO BIDWM 06/12/22 Temperature is 37.3. Heart rate is 105. Blood pressure 148/68. He is a fatigued appearing white male who looks older than stated age. Neck has shotty adenopathy Lungs are clear with diminished breath sounds at the bases Regular rate and rhythm Abdomen is soft, nontender. Extremities have mild pitting edema. Skin is covered with bruises and ecchymosis Neurologically he is alert, oriented to person place and time, lucid historian lucid speech. Mood is depressed, withdrawn. He prefers to have the lights off in the room and the blinds closed. White cell count is 10.9. Hemoglobin 7.4. Platelets are 4. Sodium 134, potassium 2.8, BUN 22, creatinine 0.9 Today's glucose has been 151, 213, 119 Assessment/Plan - Problem List (1) Bacteremia due to methicillin resistant Staphylococcus epidermidis Impression: 2 separate bld cx sites are growing Staph epi, which is Methicillin resistant. This is very likely the cause of his neutropenic fevers. He was started on vancomycin IV for MRSE. Cefepime was stopped after 7 days. The previous hospitalist on service did contact his [facility] Oncologist, Dr. Cassandra Brunner who is covering for Dr. Ross for mos in [facility]. They discussed whether the port should be removed and another port implanted several days later and she said No. Then the hospitalist called ID at who advised that we can try to save this port, by treating With IV antibiotics for 10 days. Then after stopping for 48 hours to recheck blood cultures and see if he still grows MRSE. If the MRSE regrows then the port needs to come out. The patient agreed with this plan, but would want the port removed at a larger hospital, he said. Since 06/17, the middle of the port is bleeding externally and oozing and difficult to stop. Also nurses can also not inject into the port, it won't inject. We asked a [facility] nurse to evaluate his port. 06/18 MAC RN Angela came over from [facility] and said that it is doing this because it has been accessed so many times and the skin has a hole and he bleeds easily due to low plts. She advised not to use the port. 06/19 Palliative care RN thoughtfully pointed out to both the daughter and the patient that this current problem, while a reason for admission, is not the overall problem for this man. His problem is his pancytopenia and myelodysplastic syndrome requiring blood transfusions every other day. It does not matter if we get successfully through this current treatment plan for this bacteria, he will most likely get another infection due to his neutropenia. She was trying to get the family to focus on the larger clinical problem There has been no change in the management for this problem. We will continue to treat with IV antibiotics. Also patient is terminal from his myelodysplastic syndrome, he still has an ongoing acute medical need for therapy of his MRSE (2) Pancytopenia Conclusion/Plan: Due to both chemotherapy (unknown type, that he is getting treatment from [facility]), as well as from the natural progression of his disease. He is neutropenic, anemic, and thrombocytopenic. Our [facility] clinic notes advise transfusion for Hgb <7 and plts <10. And they also want him premedicated with Benadryl very slow IV push and Tylenol 650 mg. The patient tells me he would like to Benadryl pushed very slowly because he gets very "woozy" when he goes too fast. Plan: Transfuse as above As such she will need transfusion of platelets today. No transfusion of red blood cells. (3) Myelodysplasia (myelodysplastic syndrome) Conclusion/Plan: Terminal illness. Patient has been told by oncology over the last couple of months that there is nothing more they can offer. Patient enrolled himself in a experimental protocol at [facility] and gets iv therapy (he does not know if he has the treatment med or the control). ACP was held with him at the last hospitalization, last week and he is DNR. Still wants blood transfusions. Would like to in the hospital. Daughter wants to take him home to her house. He is currently refusing her offer. He cannot go home to since his is experiencing her own life crisis w binge drinking right now and would not be able to take care of him. He refuses Hospice because he would have to stop blood transfusions so he can't get to [facility], or SNF w hospice, or [facility] w hospice. Daughter is Vijaya Pham [phone] and she is POA. If he gets confused enough or debilitated enough she will take him home to be with her. June 19 a long conversation was held with the palliative child day care teacher. Not much was decided but he is more amenable to possibly going home. His intention is to in the hospital. Palliative care will continue to see him to gradually tease out the issues. He says that he is nothing more to offer to me today. Does not want to discuss this topic anymore. (4) Chronic diarrhea Conclusion/Plan: He seems to be describing clear watery diarrhea. There is not even any stool or food in it. We suspect malabsorption. There is no blood in it so we do not think he is sloughing or bleeding into his colon because of his thrombocytopenia. Checked for C. difficile and result was neg Checked for cultures of Salmonella, Shigella, Campylobacter and are negative. Plan: IV hydration when needed Lomotil ordered Started PPN for several days We advanced his diet to solids, since this is not episodic diarrhea, but has been ongoing for many mos or even year BMPdaily Qualifiers: Diarrhea type: unspecified type Qualified Code(s): R19.7 - Diarrhea, unspecified (5) Hx Hypertension Conclusion/Plan: BP was soft at 95/55. He was also tachycardic 115. Plan: We held off on giving him his usual home BP medications of telmisartan and hydrochlorothiazide. He got iv NS, changed to iv PPN the evening of 06/17 Qualifiers: Hypertension type: primary hypertension Qualified Code(s): I10 - Essential (primary) hypertension (6) Type 2 diabetes mellitus, controlled Conclusion/Plan: He was not eating very much. Takes oral medication for DM when at home. Plan: ss Insulin coverage for glu checks ac and hs. Review of his glucose showed to be stable. No change at this time. Qualifiers: Diabetes mellitus watermaster insulin use: without watermaster use (7) Hypokalemia Conclusion/Plan: From poor intake and losses in chronic diarrhea. Plan: Will replace po and iv.. He needs more supplementation again today. Follow BMP daily (8) Hypomagnesemia Conclusion/Plan: From poor intake and losses in chronic diarrhea. Plan: Will replace po and iv. Follow Mg daily (9) Covid infection He tested positive for COVID at the [facility] clinic on 06/07. We ordered contact isolation when he was admitted. Since it has been over 2 weeks, a new COVID swab qA SIBW 06/18, It came back positive still. He does have a cough and mild rhonchi R base, but no O2 desats, does not qualify for Remdesivir. Plan: Treat symptoms as needed Continue with respiratory isolation
[2022-06-20] MEDS ORDERED: POTASSIUM CHLOR 10 MEQ/100 ML 10 MEQ/100 ML BAG IV SCH (18:00)
--- NOTE | 2022-06-21 07:26 | DISCHARGE SUMMARY ---
Discharge Summary Admit Date: 06/11/22 Discharge Date: 06/20/22 Discharging Provider: Cece Avalos MD Primary Care Provider: Marco A Latif MD Code Status: Do Not Attempt Resuscitation Discharge Disposition: 20 - DIAGNOSES Discharge Diagnoses with Status of Each Condition: 1. Neutropenic fever present on admission, resolved 2. Bacteremia due to methicillin-resistant Staphylococcus epidermidis 3. Port or reservoir infection 4. Myelodysplastic syndrome 5. Pancytopenia 6. Transfusion dependent anemia 7. Chronic diarrhea 8. History of hypertension 9. Type 2 diabetes mellitus controlled, without complication, not on long-term insulin 10. Hypokalemia 11. Hypomagnesemia 12. COVID-positive 13. Syncope and collapse - HPI History of Present Illness: Mr. West has myelodysplastic syndrome and is involved in a clinical trial with [facility]. With his current oncologist he is not felt to be candidate for any further treatment. But he still comes to this oncology clinic to get transfusions as needed. He is transfusion dependent and gets transfusions about twice a week now for the last 3 weeks. From June 01 to today, he has been here at least 4 times to get transfusions. Sometimes through the [facility] [place] and some times the [facility] [place] [place] is asking the inpatient [facility] side to do it. His last transfusion was June 03. He was COVID-positive Thanksgi week and we noted that during his blood transfusions. He tolerated those transfusions well. It is noted that he has transfusion reactions since it is getting exceedingly difficult to type and cross him due to antibody reactivity. He started developing aches beyond his usual misery in the last day. Runny nose. And has had diarrhea every 20 minutes for the last 2 days. He was seen in the [facility] [place] [place] clinic where he has been identified as having a fever to 38.7. He is a short of breath is usually is. No worse. No new cough. He has a same "puffy puffy" breathing that he has had for weeks if not months. No hemoptysis. No phlegm. No chest pain. No chest congestion. The diarrhea has come with abdominal cramping but no blood in the stool. The stool is liquid, and almost clear in its wateriness. He has diffuse aches and pains but they are not any worse than usual. No new joint effusions. As far as he knows he has no new skin tears, skin boils, abscesses or rashes. He denies urgency, frequency, dysuria. He denies hematuria. He denies flank pain. He is bleeding through his port site now. The emergency room was contacted because it is expected that he has neutropenic fever. However the emergency room provider declined to evaluate the patient and stated that they were under tremendous burden and asked someone else to evaluate the patient. I was able to go to the [facility] [place] [place] at their request and spoke to the patient. The [facility] [place] [place] nursing staff is told me that a CBC, urinalysis, chest x-ray and blood cultures of all been done.His white cell count is 2.1. Hemoglobin 6.2. Hematocrit 18.8. Platelets are 3. Neutrophils are 0.5. His PCR is still positive for COVID from last week. But its been 10 days. Urinalysis has few squamous cells, but otherwise clear. Culture is not indicated. - Past Medical History Cardiovascular: reports: Hypertension, High cholesterol, Deep vein thrombosis, Pulmonary embolism Respiratory: reports: Sleep apnea, CPAP use Neuro: reports: None Endocrine/Autoimmune: reports: Type 2 diabetes GI: reports: GERD, Diverticulitis : reports: Benign prostate hypertrophy HEENT: reports: Chronic hearing loss Psych: reports: None Musculoskeletal: reports: Osteoarthritis, Gout Derm: reports: Other MRSA Hx?: No - Past Surgical History Ortho: reports: Rotator cuff repair, Shoulder arthroplasty Cardiovascular: reports: Other - CONSULTS | PROCEDURES Procedures: Transfusion of 3 units of irradiated leukocyte reduced packed red cells, transfusion of 2 platelet pheresis packs that were irradiated and leukocyte reduced. - HOSPITAL COURSE Hospital Course: The patient was placed in inpatient status with neutropenic fever. Source not clear and that there is no pneumonia, no UTI, no abdominal discomfort. Blood cultures that were done in the [facility] [place] [place] before he was admitted became positive for methicillin-resistant staph epidermidis and antibiotics were adjusted. The source of infection was possibly his port which was now starting to bleed on a regular basis. The port has been in place for approximately 10 years according to the [facility] [place] [place] nurse. She also felt the port was bleeding not only due to thrombocytopenia but to the fact that it been access so many times there is probably now a hole in the damn and leakage to the puncture sites in the skin. The patient continue to receive irradiated packed red cells and irradiated platelets. Electrolyte abnormalities with hypokalemia and hypomagnesemia from his diarrhea were treated. Diarrhea was evaluated with cultures and no pathoge tsering bacteria were found. He was hydrated. Many conversations were had about CODE STATUS and he agreed to DO NOT RESUSCITATE. Many conversations were had about his terminal illness with his oncologist, MAC nurses, palliative care, myself, and his daughter. Daughter was very supportive and loving of her father but really wanted him to be home with her so that he could peacefully at home at her house. He did not want to go to his own house because his has issues with alcoholism and he did not want his to be responsible for him. In reviewing his blood pressures during his stay, systolic blood pressure was 129, 138, 148, 152. Other than the fever in the medical ambulatory clinic, he had no further fever. The patient did not have a bed alarm . At home, prior to admission, he walked occasionally, was independent. He had no fall risk history, and did not take any medications that placed him in a fall risk. As such, during his stay, this patient was independent with his ambulation of getting up out of bed and going to the bathroom or sitting in a chair. In the midst of treating him for his illnesses, he was found in the bathroom. We could not tell if he was on his way to urinate or had finished urinating with his pants correction down his thighs. Where he hit his head there was blood on the floor. Nursing staff pronounced him overnight. I was informed the next day. Nursing staff let me know that they already spoken to his and to his daughter Vijaya. Machine [employer] was notified according to nursing. Greater than 30 minutes was spent getting this discharge summary together after half an hour conversation with nursing staff to verify events. - ALLERGIES Allergies/Adverse Reactions: Allergies Allergy/AdvReac Type Severity Reaction Status Date / Time adhesive tape Allergy Rash Verified 05/29/22 10:05 - MEDICATIONS Home Medications: Ambulatory Orders Medication Instructions Recorded Confirmed Telmisartan/Hydrochlorothiazid 1 tab PO DAILY 06/29/13 06/12/22 [Micardis Hct 80-25 mg Tablet] allopurinoL [Allopurinol] 300 mg PO DAILY 06/29/13 06/12/22 Omeprazole 20 mg PO DAILY 05/17/20 06/12/22 Acyclovir [Zovirax] 400 mg PO BID 06/06/20 06/12/22 Folic Acid 1 mg PO DAILY 01/24/21 06/12/22 metFORMIN [Glucophage] 1,000 mg PO BIDWM 08/20/21 06/12/22 Magnesium Oxide [Mag Ox] 400 mg PO DAILY 12/16/21 06/12/22 Ondansetron Odt [Zofran Odt] 4 mg TL Q4HR PRN 06/03/22 06/12/22 Potassium Chloride [K-Dur] 20 meq PO BID 06/12/22 06/12/22 Sulfamethox/Trimeth 800/160 1 tab PO .MOTU 06/12/22 06/12/22 [Bactrim Ds] carvediloL [Coreg] 3.125 mg PO BIDWM 06/12/22 06/12/22 glipiZIDE [Glucotrol] 5 mg PO BIDWM 06/12/22 06/12/22 - LABS Result Diagrams: 06/20/22 04:25 06/20/22 04:25
== END 2022-06-20 20:19 | disposition expired | DRG 808 ==
LOC: MS2 16:33
PROVIDERS: ADMIT Specialist; ATTEND Specialist
PROC: 30233N1 Transfusion of Nonautologous Red Blood Cells into Peripheral Vein, Percutaneous Approach (ICD-10-PCS; 2022-06-16)
PROC: 30233R1 Transfusion of Nonautologous Platelets into Peripheral Vein, Percutaneous Approach (ICD-10-PCS; principal; 2022-06-17)
DX: D70.9 Neutropenia, unspecified (principal); U07.1 COVID-19; T80.219A Unspecified infection due to central venous catheter, initial encounter; R78.81 Bacteremia; R50.81 Fever presenting with conditions classified elsewhere; D46.9 Myelodysplastic syndrome, unspecified; K52.9 Noninfective gastroenteritis and colitis, unspecified; E11.9 Type 2 diabetes mellitus without complications; E87.6 Hypokalemia; E83.42 Hypomagnesemia; R55 Syncope and collapse; I10 Essential (primary) hypertension; E78.00 Pure hypercholesterolemia, unspecified; G47.30 Sleep apnea, unspecified; K21.9 Gastro-esophageal reflux disease without esophagitis; N40.0 Benign prostatic hyperplasia without lower urinary tract symptoms; H91.90 Unspecified hearing loss, unspecified ear; M19.90 Unspecified osteoarthritis, unspecified site; M10.9 Gout, unspecified; D61.810 Antineoplastic chemotherapy induced pancytopenia; T45.1X5A Adverse effect of antineoplastic and immunosuppressive drugs, initial encounter; Z66 Do not resuscitate; Z68.27 Body mass index [BMI] 27.0-27.9, adult; Z71.3 Dietary counseling and surveillance; Z79.84 Long term (current) use of oral hypoglycemic drugs; Z79.899 Other long term (current) drug therapy; Z80.3 Family history of malignant neoplasm of breast; Z82.49 Family history of ischemic heart disease and other diseases of the circulatory system; Z83.3 Family history of diabetes mellitus; Z86.711 Personal history of pulmonary embolism; Z86.718 Personal history of other venous thrombosis and embolism
CPT/HCPCS: 36415; 80048; 80053; 80202; 83615; 83735; 84100; 84134; 84478; 85025; 86850; 86870; 86880; 86900; 86901; 86922; 87040; 87045; 87046; 87205; 87427; 87493; 87635; A9270; J1200; J1815; J3370; J3490; P9037; P9040; Q0162; 87070